=== PATIENT | female | born 1945 | race Caucasian/White ===

== ENCOUNTER 2021-12-11 14:19 | Outpatient (REF) | payer MEDICARE, SELFPAY ==
--- NOTE | ~2021-12-11 | XR_ITS ---
EXAMINATION: XR CHEST CLINICAL INFORMATION: Cough and shortness of breath with question of pneumonia COMPARISON: None TECHNIQUE: 2 views of the chest were obtained. FINDINGS: A left chest wall dual-lead pacemaker is present. Otherwise, no significant abnormality is noted involving the heart, lungs, mediastinum, bony thorax or soft tissues. No infiltrates, pleural effusions or lung masses are seen. XR/XR chest 2V IMPRESSION: No acute intrathoracic disease. No evidence of pneumonia.
== END 2021-12-11 14:20 | disposition home or self-care (01) ==
LOC: HO.HMGCX 14:19
PROVIDERS: PCP Internal Medicine; Visit Provider Internal Medicine
DX: R06.00 Dyspnea, unspecified (principal)
CPT/HCPCS: 71046

== ENCOUNTER → 2022-02-08 10:52 | Outpatient (REF) | payer MEDICARE, SELFPAY | LOC: HO.CARD 10:52 | PROVIDERS: Visit Provider Internal Medicine | DX: R01.1 Cardiac murmur, unspecified (principal); R06.02 Shortness of breath | CPT/HCPCS: 93306 ==

== ENCOUNTER 2022-04-15 07:14 | Outpatient (REF) | payer MEDICARE, SELFPAY ==
[2022-04-15 08:05] LABS: Anion Gap 14 (12-20); Blood Urea Nitrogen 16 mg/dL (9-16); Calcium 10.9 mg/dL (8.4-10.2); Carbon Dioxide 30 mmol/L (22-29); Chloride 103 mmol/L (96-108); Estimated Glomerular Filt Rate 36; Glucose Random 164 mg/dL (60-115); Potassium 4.7 mmol/L (3.3-5.1); Sodium 142 mmol/L (135-145)
== END 2022-04-15 07:15 | disposition home or self-care (01) ==
LOC: HO.LAB 07:14
PROVIDERS: PCP Internal Medicine; Visit Provider Internal Medicine
DX: R53.83 Other fatigue (principal)
CPT/HCPCS: 36415; 80048

== ENCOUNTER 2022-12-20 11:00 | Outpatient (AMB) | payer MEDICARE, SELFPAY ==
--- NOTE | 2022-12-20 11:02 | MHC.PC.OV ---
Vital Signs 12/20/22 11:03 Height 5 ft 4 in Weight 135 lb 8 oz BMI 23.3 BP 160/64 H Blood Pressure Location Lt brachial Position Sitting Respiration 12 Pulse 78 Pulse Source Pulse Oximeter Temp 97.9 F Temp Source Temporal Artery Scan Pulse Oximetry (%) 98 Oxygen Delivery Method Room Air Intake Visit Reasons: New patient-requesting physical Waist Pleater Required: No Accompanied by: Self / Same As Patient Allergies acetaminophen [From Percocet] Allergy (Intermediate, Verified 12/20/22 11:44) Itching oxycodone [From Percocet] Allergy (Intermediate, Verified 12/20/22 11:44) Itching moltrin Allergy (Severe, Uncoded 12/20/22 11:44) Swelling Medication List - Last Reconciled 12/20/22 by Jaylen Taylor CNP albuterol sulfate 90 mcg/actuation 2 puffs inhalation QID PRN amlodipine 10 mg PO DAILY atorvastatin 80 mg PO BEDTIME bupropion HCl 150 mg PO BID cilostazol 100 mg PO clopidogrel 75 mg PO DAILY ferrous sulfate 325 mg PO QAM gabapentin 400 mg PO TID levothyroxine 137 mcg PO DAILY lisinopril 10 mg PO DAILY metformin 500 mg PO BID omeprazole 20 mg PO DAILY pramipexole 0.25 mg PO DAILY sertraline 100 mg PO BID Tobacco use date assessed: 12/20/22 Fall risk assessment: 2 + Falls in past year Last assessed Fall Risk: 12/20/22 Dental Screening Dental Screen Date: 12/20/22 Did you have a dental visit in the last 12 months?: No Did you have a dental problem in the last 6 months where you did not have access to dental care?: No Was dental information given to patient?: Yes HPI HPI Comments History of Present Illness Details 77-year-old female presents to [facility]. She notes she was last evaluated by her former PCP, [facility] on 10/08/2022 and her last blood work was in 04/2022. She states has has not had an A1C done in a while. She has past medical history significant for type 2 diabetes, hypertension, hyperlipidemia, hypothyroidism, CKD stage 3, COPD, GERD, OA, chronic back pain s/p multiple lumbar disectomies, and RLS. 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 She reports daily diarrhea since mid January 2022. She reports as many as 15 diarrheal episodes per day sometimes. 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 She reports an abrasion to her left forearm which she sustained yesterday. She notes she jammed the forearm on a metal lock on a closet in her home. She does not recall when she had her last tetanus vaccine. She states she was treated for hypertension at [facility] on 12/07/2022. She was told to hold lisinopril. She has been taking amlodipine as prescribed. She notes she smokes 10 cigarettes a day and she has been smoking for the past 70 years. She states she is on bupropion for smoking cessation but stopped taking the medication. She was treated at [facility] for hypertension and ID on 05/01/2022. She was followed by Dr. Nicholas, [facility] cardiology. [facility] Medical History (Updated 12/20/22 @ 12:52 by Jaylen Taylor CNP) Anxiety and depression Cataracts, bilateral Chronic back pain CKD (chronic kidney disease) stage 3, GFR 30-59 ml/min COPD (chronic obstructive pulmonary disease) Deafness in right ear GERD (gastroesophageal reflux disease) Hyperlipidemia Hypertension Hypothyroidism No pertinent family history Osteoarthritis Restless leg syndrome Stroke Type 2 diabetes mellitus Surgical History (Updated 12/20/22 @ 11:39 by Maryuri Tillman MA) H/O endarterectomy H/O thyroidectomy H/O: hysterectomy History of appendectomy History of back surgery History of tonsillectomy S/P cardiac pacemaker procedure Social History Housing: House Patient Tobacco Use Status: Current everyday Tobacco user Tobacco use type: Cigarette Cigarettes Per Day: 10 Years Smoked: 70 e-Cigarette/Vaping Use: Never Used service: No Current occupational status: retired Cognitive needs: No Hearing needs: Yes Vision needs: Yes Questionnaire PHQ-9 Over the last 2 weeks, how often have you been bothered by any of the following problems? 1. Little interest or pleasure in doing things: nearly every day 2. Feeling down, depressed, or hopeless: several days 3. Trouble falling or staying asleep, or sleeping too much: nearly every day 4. Feeling tired or having little energy: nearly every day 5. Poor appetite or overeating: not at all 6. Feeling bad about yourself - or that you are a failure or have let yourself or your family down: several days 7. Trouble concentrating on things, such as reading the newspaper or watching television: not at all 8. Moving or speaking so slowly that other people could have noticed. Or the opposite - being so fidgety or restless that you have been moving around a lot more than usual: not at all 9. Thoughts that you would be better off or of hurting yourself in some way: several days Total score: 12 Depression Screening Interpretation: Positive Depression Screening Follow-up: Existing condition and In treatment Source: Developed by Drs. Bonifacio Bethea, Danni Villa, Rico Wilcox and colleagues, with an educational saranya from [employer]. Thrive Questionnaire Date Thrive assessed: 12/20/22 I am a: Patient What is your living situation today?: I have a steady place to live Within the past 12 months, did the food you bought not last and you didn't have the money to get more?: Never true Within the past 12 months, did you worry whether your food would run out before you got money to buy more?: Never true Do you have trouble paying for medicines?: No Do you have trouble getting transportation to medical appointments?: No Do you have trouble paying your heating and electricity bill?: No Do you have trouble taking care of your child, family member or friend?: No Do you have trouble with day-to-day activities such as bathing, preparing meals, shopping, managing finances, etc.?: No Are you currently unemployed and looking for a job?: No Are you interested in more education?: No Please select the resources that you would like help with: None Currently or been in a relationship where the following occur: no concerns reported AUDIT C Alcohol Use Questionnaire (AUDIT-C) 1. How often do you have a drink containing alcohol?: Never 3. How often do you have six or more drinks on one occasion?: Never Total Score: 0 MARCELA-7 AMB Questionnaire MARCELA-7 Date MARCELA - 7 assessed: 12/20/22 Feeling nervous, anxious, or on edge: 1 = Several days Not being able to stop or control worryin = Several days Worrying too much about different things: 1 = Several days Trouble relaxin = Nearly every day Being so restless that it is hard to sit still: 1 = Several days Becoming easily annoyed or irritable: 1 = Several days Feeling afraid as if something awful might happen: 0 = Not at all Total MARCELA-7 score (0-4 normal; 5-9 mild; 10-14 moderate; 15-21 severe): 8 Source: Developed by Drs. Bonifacio Bethea, Danni Villa, Rico Wilcox and colleagues, with an educational saranya from [employer]. Review of Systems Const Details: Const Denies chills, Denies fatigue, Denies fever(s), Denies headache(s) and Denies weakness ENT Denies dizziness, Denies headache(s), reports right hearing loss Card Denies chest pain, Denies lightheadedness, Denies dyspnea and Denies other (Palpitations) Resp Denies cough, Denies dyspnea, Denies wheezing and Denies other ( shortness of breath) GI Reports chronic diarrhea, Denies abdominal pain, Denies melena, Denies hematochezia, Denies dyspepsia and Denies nausea Denies hematuria and Denies dysuria Musc Denies abnormal gait, Denies myalgias, Denies arthralgias, Denies numbness and Denies tingling Skin/Breast Reports abrasion to left arm, Denies rash, Denies unusual bruising Neuro Denies abnormal gait, Denies dizziness, Denies headache(s), Denies memory loss, Denies numbness, Denies Sensory deficit (Neuro), Denies tingling and Denies weakness Psych Reports anxiety, Reports depression, Denies memory loss Endo Denies cold intolerance, Denies fatigue, Denies heat intolerance, Denies polydipsia and Denies polyuria Aller/Immun Denies wheezing Physical exam (Primary Care) Vital Signs: Last Vital Signs Temp 97.9 F 12/20/22 11:03 Pulse 78 12/20/22 11:03 Resp 12 12/20/22 11:03 BP 160/64 H 12/20/22 11:03 Pulse Ox 98 12/20/22 11:03 Oxygen Delivery Method Room Air 12/20/22 11:03 BMI result Body Mass Index 23.3 Tobacco/Smoking Status: Tobacco use Status Tobacco use date assessed 12/20/22 12/20/22 11:22 Patient Tobacco Use Status Current everyday Tobacco 12/20/22 11:22 Tobacco use type Cigarette 12/20/22 11:22 e-Cigarette/Vaping Use Never Used 12/20/22 11:22 PHQ-9: PHQ-9 Score PHQ-9: Total score 12 12/20/22 12:45 Depression Screening Interpretation: Positive Depression Screening Follow-up: Existing condition and In treatment Thrive Assessment: Date of Thrive Assessment Date Thrive assessed 12/20/22 12/20/22 11:43 Currently or been in a relationship where the following occur: no concerns reported Const Other: General: no acute distress and well developed Nutritional Appearance: well nourished Orientation/consciousness: patient oriented x3 HENMT Head: Yes normocephalic and Yes atraumatic Eyes General: appearance normal, both eyes and all related structures Pupils: Equal, round and reactive pupils present EOM: EOMs intact bilaterally Resp Effort & Inspection: normal respiratory effort Auscultation: clear to auscultation bilaterally Cardio Rate: regular rate Rhythm: regular rhythm Heart sounds: S1 normal heart sound present, S2 normal heart sound present, no gallops, murmurs present and no rubs GI Palpation (GI): No Abdominal aortic bruit present, Soft to palpation, nontender, No hepatosplenomegaly present and No Rebound tenderness present Auscultation: normal bowel sounds General: Yes no CVA tenderness Back/Spine/Pelvis Back: no CVA tenderness Cervical Spine: cervical ROM normal and No Cervical spine tenderness Thoracic/Lumbar Spine: thoraco-lumbar ROM normal, No pain with thoraco-lumbar ROM, No thoracic spinal tenderness and No lumbar spinal tenderness Extrem General: Yes normal to inspection, No edema and No calf tenderness Skin General: warm and dry. Normal skin color. Normal skin turgor Lesions: no lesions Rashes: no rashes Trauma: no lacerations or abrasions Wounds: Approximately 2.5 cm x 2 cm laceration to the lateral left forearm proximal to the antecubital fossa, minimal bleeding noted, no overt signs of infection noted Nails: normal Neuro General: patient oriented x3, gait normal and no focal neuro deficit Cranial nerves: Yes Equal, round and reactive pupils present Cognition (Neuro): normal cognition Gait exam (Neuro): Normal gait present Sensory Exam: No Sensory deficit (Neuro) Psych Appearance: grossly normal Affect: normal affect Attitude: cooperative Thought process: Normal thought process present Results AMB Hemoglobin A1c AMB Hemoglobin A1c 6.0 % Last Edit by Suresh Dickerson RN on 12/20/22 12:48 Immunizations Boostrix Tdap Performing Provider: Jaylen Taylor CNP Administered by: Suresh Dickerson RN on 12/20/22 12:30 Dose Route Admin Location Lot Number Expiration Date NDC 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 Take as prescribed ADA diet and routine exercise encouraged Follow-up in 1 month for labs review, hypertension, and complete physical exam Return sooner with worsening or new symptoms Verbalized understanding and agreed with treatment plan. (2) Hypertension: Code(s): I10 - Essential (primary) hypertension Plan: She states she was treated for hypertension at [facility] on 12/07/2022. She was told to hold lisinopril. She has been taking amlodipine as prescribed. A blood pressure today is 160/64, above goal of less than 130/80 Advised to resume taking lisinopril as prescribed Continue to take amlodipine as prescribed Low-sodium diet encouraged Advised to monitor home blood pressure, record readings, reports BP consistently above 130/80 and SBP less than [address] Nicholas, [facility] cardiology the the history of hypertension and pacemaker Follow-up in 1 month or return sooner with concerns or symptoms Verbalized understanding and agreed with treatment plan. (3) Hypothyroidism: Code(s): E03.9 - Hypothyroidism, unspecified Plan: With currently on levothyroxine 137 mcg daily Take as prescribed Will check TSH/T4 level and make changes to her care plan if warranted Verbalized understanding and agreed with treatment plan. (4) Hyperlipidemia: Code(s): E78.5 - Hyperlipidemia, unspecified Plan: Currently on atorvastatin 80 mg daily. Advised to continue to take as prescribed Will check lipid levels and make changes to her care plan if warranted Verbalized understanding and agreed with treatment plan. 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 (6) Anxiety and depression: Code(s): F41.9 - Anxiety disorder, unspecified; F32.A - Depression, unspecified Plan: MARCELA-7 and PHQ-9 scores revealed mild anxiety and moderate depression respectively Continue to take sertraline as prescribed Declined therapy Follow-up with worsening or new symptoms Verbalized understanding and agreed with treatment plan. (7) Skin tear of left upper arm without complication: Code(s): S41.112A - Laceration without foreign body of left upper arm, initial encounter Plan: Reports an abrasion to her left forearm which she sustained yesterday. She notes she jammed the forearm on a metal lock on a closet in her home. She does not recall when she had her last tetanus vaccine. Approximately 2.5 cm x 2 cm laceration to the lateral left forearm proximal to the antecubital fossa, minimal bleeding noted, no overt signs of infection noted Wound cleanse with normal saline, patted dry, and covered with Band-Aid Instructed on safety, wound care, and signs and symptoms of infection to monitor and follow-up Tetanus injection administered by the nurse Verbalized understanding and agreed with treatment plan. (8) Smoking 1/2 pack a day or less: Code(s): F17.210 - Nicotine dependence, cigarettes, uncomplicated Plan: She notes she smokes 10 cigarettes a day and she has been smoking for the past 70 years. She states she is on bupropion for smoking cessation but stopped taking the medication. Smoking cessation encouraged Advised to resume taking bupropion as prescribed Return with no improvement. Will change treatment regimen Verbalized understanding and agreed with treatment plan. (9) Chronic diarrhea: Code(s): K52.9 - Noninfective gastroenteritis and colitis, unspecified Plan: She reports daily diarrhea since mid January 2022. She reports as many as 15 diarrheal episodes per day sometimes. 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 May be attributed to adverse effect of metformin. Will change metformin to 1000 mg ER daily to possibly lessen or resolve diarrhea symptoms. Take as prescribed Metamucil ordered. Take as prescribed Follow-up in 1 month or return sooner with worsening or new symptoms Verbalized understanding and agreed with treatment plan. (10) Laboratory tests ordered as part of a complete physical exam (CPE): Code(s): Z00.00 - Encounter for general adult medical examination without abnormal findings Plan: Fasting labs ordered as part of a complete physical exam. Advised to fast for at least 10 hours before getting labs drawn. May drink water Verbalized understanding and agreed with treatment plan. Orders: Orders Comprehensive [place]. Panel Fast Today Z00.00 - Encounter for general adult medical examination without abnormal findings Lipid Panel Today Z00.00 - Encounter for general adult medical examination without abnormal findings TSH reflex Free T4 Today Z00.00 - Encounter for general adult medical examination without abnormal findings Complete Blood Count Auto Diff Today Z00.00 - Encounter for general adult medical examination without abnormal findings UA CC w/rflx Micro + Cult Today Z00.00 - Encounter for general adult medical examination without abnormal findings TDaP Immunization Today S41.112A - Laceration without foreign body of left upper arm, initial encounter, Z23 - Encounter for immunization AMB Hemoglobin A1c Today Z13.9 - Encounter for screening, unspecified Referrals Cardiology Referral I10 - Essential (primary) hypertension Medications: New cilostazol 100 mg PO BID 30 days 60 tabs 3RF metformin ER 1,000 mg PO DAILY 30 days 30 tabs 3RF psyllium husk (Metamucil) mix into at least 8 oz of water or juice before administering. May increase to BID with persistent/worsening symptoms 1 tbsp PO DAILY 660 grams 0RF Coding Level of Care Code New Pt Level 4 (68748) Diagnoses Type 2 diabetes mellitus E11.9 Hypertension I10 Hypothyroidism E03.9 Hyperlipidemia E78.5 Deafness in right ear H91.91 Anxiety and depression F41.9; F32.A Skin tear of left upper arm without complication S41.112A Smoking 1/2 pack a day or less F17.210 Chronic diarrhea K52.9 Laboratory tests ordered as part of a complete physical exam (CPE) Z00.00
[2022-12-20 11:03] VITALS: BP 160/64; PULSE 78; RESP 12; TEMP 36.6; O2SAT 98; BMI 23.3
== END 2022-12-20 12:44 | disposition home or self-care (01) ==
PROVIDERS: PCP Internal Medicine; Visit Provider Nurse Practitioner Family
DX: E11.9 Type 2 diabetes mellitus without complications (principal); I10 Essential (primary) hypertension; E03.9 Hypothyroidism, unspecified; F41.9 Anxiety disorder, unspecified; S41.112A Laceration without foreign body of left upper arm, initial encounter; E78.5 Hyperlipidemia, unspecified; H91.91 Unspecified hearing loss, right ear; F32.A Depression, unspecified; F17.210 Nicotine dependence, cigarettes, uncomplicated; K52.9 Noninfective gastroenteritis and colitis, unspecified; Z23 Encounter for immunization; Z00.00 Encounter for general adult medical examination without abnormal findings
CPT/HCPCS: 83036; 90471; 90715; 99204

== ENCOUNTER 2023-01-08 09:49 | Outpatient (REF) | payer MEDICARE, SELFPAY ==
[2023-01-08 11:17] LABS: MANUAL DIFF FLAG NO
[2023-01-08 11:43] LABS: Basophils Percent Auto 0.5 % (0-2); Eosinophils Absolute Auto 1.7 X10*3/uL (0.0-0.4); Eosinophils Percent Auto 19.1 % (0-4); Hematocrit 33.1 % (37.0-47.0); Hemoglobin 11.2 g/dl (12.0-16.0); Imm Gran Abs Auto 0.03 X10*3/uL (0.00-0.03); Imm Gran Pct Auto 0.3 % (0.0-0.4); Lymphocytes Absolute Auto 1.1 X10*3/uL (1.2-4.9); Lymphocytes Percent Auto 12.8 % (20-40); Mean Corpuscular HGB Conc 33.8 g/dl (31.0-35.0); Mean Corpuscular Hemoglobin 31.7 pg (27.0-33.0); Mean Corpuscular Volume 93.8 fL (80.0-98.0); Mean Platelet Volume 9.8 fL (9.4-12.3); Monocytes Absolute Auto 0.4 X10*3/uL (0.1-1.2); Monocytes Percent Auto 4.3 % (2-11); Neutrophils Absolute Auto 5.5 x10*3/uL (2.0-8.3); Platelet Count 228 X10*3/uL (160-400); Red Blood Count 3.53 X10*6/uL (4.20-5.50); Red Cell Distribution Width 13.1 % (11.0-16.0); White Blood Count 8.8 X10*3/uL (4.8-10.8)
[2023-01-08 12:51] LABS: Alanine Aminotransferase 10 U/L (0-31); Albumin Level 4.1 g/dL (3.5-5.0); Alkaline Phosphatase 104 U/L (39-117); Anion Gap 12 (12-20); Aspartate Amino Transferase 15 U/L (5-31); Bilirubin Total 0.2 mg/dL (0.0-1.0); Blood Urea Nitrogen 26 mg/dL (9-16); Calcium 10.6 mg/dL (8.4-10.2); Carbon Dioxide 19 mmol/L (22-29); Chloride 116 mmol/L (96-108); Cholesterol 124 mg/dL (<200); Estimated Glomerular Filt Rate 31; Glucose Fasting 125 mg/dL (60-99); HDL Cholesterol 36 mg/dL (>40); LDL Cholesterol Calculated 62 mg/dL (<100); Potassium 4.8 mmol/L (3.3-5.1); Sodium 142 mmol/L (135-145); TSH reflex Free T4 1.75 uIU/mL (0.32-4.0); Total Protein 7.2 g/dL (6.5-8.0); Triglycerides 133 mg/dL (<150)
== END 2023-01-08 09:50 | disposition home or self-care (01) ==
LOC: HO.WFDLDS 09:49
PROVIDERS: Visit Provider Nurse Practitioner Family
DX: Z00.00 Encounter for general adult medical examination without abnormal findings (principal)
CPT/HCPCS: 36415; 80053; 80061; 84443; 85025

== ENCOUNTER 2023-01-10 08:27 | Outpatient (REF) | payer MEDICARE, SELFPAY ==
[2023-01-10 12:10] LABS: Appearance Urine Clear; Color Urine Yellow; Glucose Urine UA Negative (Negative); Leukocyte Esterase Urine Negative (Negative); Nitrite Urine Negative (Negative); PH 5.5 (5.0-9.0); Specific Gravity - Urine 1.015 (1.005-1.025); UMIC TRIGGER UACC YES; Urine Blood Negative (Negative); Urine Ketones Negative (Negative); Urine Protein 100 (2+) mg/dL (Neg-Trace)
[2023-01-10 12:14] LABS: Bacteria Urine None Seen (None Seen); Hyaline Casts Urine 0-2 /LPF (0-2); RBC Urine 0-2 /HPF (0-2); Squamous Epithelial Cell Urine 0-2 /HPF (0-2); WBC Urine 0-5 /HPF (0-5)
== END 2023-01-10 08:28 | disposition home or self-care (01) ==
LOC: HO.WFDLDS 08:27
PROVIDERS: Visit Provider Nurse Practitioner Family
DX: Z00.00 Encounter for general adult medical examination without abnormal findings (principal)
CPT/HCPCS: 81001

== ENCOUNTER 2023-01-16 10:30 | Outpatient (AMB) | payer MEDICARE, SELFPAY ==
--- NOTE | 2023-01-16 10:35 | A.OFFPC_ITS ---
Vital Signs 01/16/23 10:36 Height 5 ft 4 in Weight 135 lb 6 oz BMI 23.2 BP 132/68 Blood Pressure Location Lt brachial Position Sitting Respiration 12 Pulse 91 Pulse Source Pulse Oximeter Temp 97.3 F Temp Source Temporal Artery Scan Pulse Oximetry (%) 99 Oxygen Delivery Method Room Air Intake Visit Reasons: 1 mos HTN, CPE, labs review Bell Cleaner Required: No Accompanied by: Self / Same As Patient Allergies acetaminophen [From Percocet] Allergy (Intermediate, Verified 01/17/23 10:45) Itching oxycodone [From Percocet] Allergy (Intermediate, Verified 01/17/23 10:45) Itching moltrin Allergy (Severe, Uncoded 01/17/23 10:45) Swelling Tobacco use date assessed: 12/20/22 Fall risk assessment: 2 + Falls in past year Last assessed Fall Risk: 01/16/23 Dental Screening Dental Screen Date: 01/16/23 Did you have a dental visit in the last 12 months?: No Did you have a dental problem in the last 6 months where you did not have access to dental care?: No Was dental information given to patient?: Patient has dentist HPI HPI Comments History of Present Illness Details 77-year-old female presents for review o f recent blood work, hypertension, and a physical exam. She established care last month. Routine labs were ordered. She was also referred to Cardiology for hypertension and history of pacemaker. She reported chronic diarrhea; metformin was changed to the extended-release form and Metamucil was prescribed to treat diarrhea. She reports continued multiple diarrhea. She admits to taking Metamucil as prescribed without improvement. She states that the pharmacy declined to fill the new script for Metformin ER. No abdominal pain, no nausea, vomiting, or constipation. She notes her last eye exam was last month: normal. She notes she was followed by nephrology at [facility] until last year. She requests a new referral to nephrology. She notes she has not been contacted by [facility] to schedule an appointment. She notes her last bone scan was 15 years ago: osteopenia She states her last mammogram was 3 years ago: benign floating cysts She notes had lung screening over 2 year but never received the result She states her last colonoscopy was 4 yrs ago, [facility], [place]: normal [facility] Medical History (Updated 01/17/23 @ 10:55 by Jaylen Taylor CNP) Restless leg syndrome No pertinent family history Hyperlipidemia Chronic back pain Osteoarthritis GERD (gastroesophageal reflux disease) Anxiety and depression Type 2 diabetes mellitus Hypertension CKD (chronic kidney disease) stage 3, GFR 30-59 ml/min Hypothyroidism Cataracts, bilateral COPD (chronic obstructive pulmonary disease) Deafness in right ear Stroke Surgical History History of tonsillectomy History of appendectomy H/O: hysterectomy History of back surgery H/O thyroidectomy H/O endarterectomy S/P cardiac pacemaker procedure Social History Housing: House Patient Tobacco Use Status: Current everyday Tobacco user Tobacco use type: Cigarette Cigarettes Per Day: 10 Years Smoked: 70 e-Cigarette/Vaping Use: Never Used service: No Current occupational status: retired Cognitive needs: No Hearing needs: No Vision needs: No Questionnaire Thrive Questionnaire Date Thrive assessed: 12/20/22 MARCELA-7 AMB Questionnaire MARCELA-7 Date MARCELA - 7 assessed: 12/20/22 Source: Developed by Drs. Bonifacio Bethea, Danni Villa, Rico Wilcox and colleagues, with an educational saranya from [employer]. Review of Systems Const Details: Denies chills, Denies fatigue, Denies fever(s), Denies headache(s) and Denies weakness HEENT Denies change in vision, Denies dizziness, Denies headache(s), Denies hearing loss, Denies nasal congestion, Denies sinus pain, Denies sinus pressure and Denies sore throat Card Denies chest pain, Denies lightheadedness, Denies dyspnea and Denies other (palpitations) Resp Denies cough, Denies dyspnea and Denies wheezing GI Reports as per HPI Denies hematuria and Denies dysuria Musc Denies abnormal gait, Denies myalgias, Denies arthralgias, Denies numbness and Denies tingling Skin/Breast Denies rash, Denies unusual bruising and Denies wounds Neuro Denies abnormal gait, Denies dizziness, Denies headache(s), Denies memory loss, Denies numbness, Denies Sensory deficit (Neuro), Denies tingling and Denies weakness Psych Denies anxiety, Denies depression and Denies memory loss Endo Denies cold intolerance, Denies fatigue, Denies heat intolerance, Denies polydipsia and Denies polyuria Arnold/Lymph Denies easy bleeding and Denies easy bruising Aller/Immun Denies wheezing Physical exam (Primary Care) Vital Signs: Last Vital Signs Temp 97.3 F 01/16/23 10:36 Pulse 91 01/16/23 10:36 Resp 12 01/16/23 10:36 BP 132/68 01/16/23 10:36 Pulse Ox 99 01/16/23 10:36 Oxygen Delivery Method Room Air 01/16/23 10:36 BMI result Body Mass Index 23.2 Tobacco/Smoking Status: Tobacco use Status Tobacco use date assessed 12/20/22 01/16/23 10:35 Patient Tobacco Use Status Current everyday Tobacco 01/16/23 10:35 Tobacco use type Cigarette 01/16/23 10:35 e-Cigarette/Vaping Use Never Used 01/16/23 10:35 Thrive Assessment: Date of Thrive Assessment Date Thrive assessed 12/20/22 01/16/23 10:35 Const Other: General: no acute distress, well developed, alert and awake Nutritional Appearance: well nourished Orientation/consciousness: patient oriented x3 HENMT Head: Yes normocephalic and Yes atraumatic Ears: hearing grossly normal bilaterally and TM's normal bilaterally General nose exam: Normal external nose present and Normal nares present Mouth: Normal oral and palatal mucosa present and moist mucous membranes Teeth and gingiva: dentition normal Throat: Yes oropharynx normal Eyes Pupils: Equal, round and reactive pupils present and Pupil accommodation reflex normal EOM: EOMs intact bilaterally Neck Neck: Yes normal visual inspection, Yes no lymphadenopathy and Yes trachea midline Thyroid: Thyroid normal Carotids: no bruits Lymphatic: no lymphadenopathy noted Chest Chest palpation & inspection: normal inspection of the chest Resp Effort & Inspection: normal respiratory effort Auscultation: clear to auscultation bilaterally Cardio Rate: regular rate Rhythm: regular rhythm Heart sounds: S1 normal heart sound present, S2 normal heart sound present, no gallops, murmur present and no rubs Bruits: no abdominal aortic bruits and no carotid bruits GI Palpation (GI): No Abdominal aortic bruit present, Soft to palpation, nontender, No hepatosplenomegaly present and No Rebound tenderness present Auscultation: normal bowel sounds General: Yes no CVA tenderness Back/Spine/Pelvis Back: no CVA tenderness Cervical Spine: cervical ROM normal and No Cervical spine tenderness Thoracic/Lumbar Spine: thoraco-lumbar ROM normal, No pain with thoraco-lumbar ROM, No thoracic spinal tenderness and No lumbar spinal tenderness Skin General: warm and dry. Normal skin color. Normal skin turgor Lesions: no lesions Rashes: no rashes Trauma: no lacerations or abrasions Wounds: no wounds Nails: normal Neuro General: patient oriented x3, gait normal and CN's II-XI intact bilaterally Cranial nerves: Yes Equal, round and reactive pupils present Cognition (Neuro): normal cognition Gait exam (Neuro): Normal gait present Motor exam (neuro): 5/5 motor strength present throughout Sensory Exam: No Sensory deficit (Neuro) Deep tendon reflexes (DTR's): Right patellar reflex intensity grade: 2+ and Left patellar reflex intensity grade: 2+ Extrem General: Yes normal to inspection, No edema and No calf tenderness Psych Appearance: grossly normal Affect: normal affect Attitude: cooperative Thought process: Normal thought process present Assessment and Plan Assessment & Plan (1) Normal physical examination, routine: Code(s): Z00.00 - Encounter for general adult medical examination without abnormal findings Plan: No significant physical restrictions or limitations noted She notes that she had a normal colonoscopy 4 years ago at [facility] in [place]. Will request old health records and review results Follow-up in 2 months for hypertension, diabetes, anxiety and depression Return sooner with new or worsening symptoms Verbalized understanding and agreed with treatment plan. (2) Hypertension: Code(s): I10 - Essential (primary) hypertension Qualifiers: Hypertension type: primary hypertension Qualified Code(s): I10 - Essential (primary) hypertension Plan: Blood pressure is 132/68, slightly above goal of less than 130/80 Continue with current treatment regimen Low-sodium diet encouraged Follow-up in 2 months Return sooner with symptoms or concerns Verbalized understanding and agreed with the treatment plan. (3) Hyperlipidemia: Code(s): E78.5 - Hyperlipidemia, unspecified Qualifiers: Hyperlipidemia type: unspecified Qualified Code(s): E78.5 - Hyperlipidemia, unspecified Plan: Recent lab results reviewed with the patient LDL is 62 and within goal of less than 70 HDL is slightly low below 40 Triglycerides and total cholesterol level is normal Continue with current treatment regimen Advised to limit foods high in saturated fat and avoid foods high trans fat Routine exercise encouraged Will continue to monitor Verbalized understanding and agreed with treatment plan. (4) Hypothyroidism: Code(s): E03.9 - Hypothyroidism, unspecified Qualifiers: Hypothyroidism type: unspecified Qualified Code(s): E03.9 - Hypothyroidism, unspecified Plan: Recent TSH level is normal Continue with current treatment regimen Will continue to monitor Verbalized understanding and agreed with treatment plan. (5) Type 2 diabetes mellitus: Code(s): E11.9 - Type 2 diabetes mellitus without complications Qualifiers: Diabetes mellitus complication status: without complication Plan: A1c was 6.0% last month, within goal of less than 7.0% She has been taking metformin 500 mg IR twice daily instead of newly prescribed 1000 mg ER daily because the medication was not filled by the pharmacy. The MA called the pharmacy and was informed that Metformin 500 mg ER, 2 tabs daily, will be covered by the patient's health plan instead of 1000 mg ER daily. Metformin order modified to 500 mg ER, 2 tabs daily. Take as prescribed She notes she had normal eye exam last month ADA diet and routine exercise encouraged Follow-up in 2 months Return sooner with symptoms or concerns Verbalized understanding and agreed with treatment plan. (6) Chronic diarrhea: Code(s): K52.9 - Noninfective gastroenteritis and colitis, unspecified Plan: She reports continued multiple diarrhea. She admits to taking Metamucil as prescribed without improvement. She states that the pharmacy declined to fill the new script for Metformin ER. No abdominal pain, no nausea, vomiting, or constipation. The MA called the pharmacy and was informed that Metformin 500 mg ER, 2 tabs daily, will be covered by the patient's health plan instead of 1000 mg ER daily. Metformin order modified to 500 mg ER, 2 tabs daily. Take as prescribed. May resolve diarrhea GI referral made Return with worsening or new symptoms Verbalized understanding and agreed with treatment plan. (7) CKD (chronic kidney disease) stage 3, GFR 30-59 ml/min: Code(s): N18.30 - Chronic kidney disease, stage 3 unspecified Qualifiers: Chronic kidney disease stage 3 subtype: stage 3b (GFR 30-44) Qualified Code(s): N18.32 - Chronic kidney disease, stage 3b Plan: Recent BUN and creatinine level is slightly elevated, GFR is low, 31 BMP ordered to recheck kidney functions She was followed by [facility] and request a new systems designer Referred to [facility] Follow-up with symptoms or concerns Verbalized understanding and agreed with treatment plan. (8) Breast cancer screening: Code(s): Z12.39 - Encounter for other screening for malignant neoplasm of breast Qualifiers: Breast cancer screening modality: mammogram Qualified Code(s): Z12.31 - Encounter for screening mammogram for malignant neoplasm of breast Plan: She states her last mammogram was 3 years ago: benign floating cysts Mammogram ordered (9) Screening for lung cancer: Code(s): Z12.2 - Encounter for screening for malignant neoplasm of respiratory organs Plan: She notes she smokes 10 cigarettes a day and she has been smoking for the past 70 years Instructed smoking risks and complications such as heart attack and stroke. Smoking cessation encouraged Continue to take Wellbutrin as prescribed Lung cancer screening ordered Verbalized understanding and agreed with the treatment plan. (10) Murmur: Code(s): R01.1 - Cardiac murmur, unspecified Plan: She was referred to Cardiology last month for murmurs, hypertension, and pacemaker She notes she has not been contacted by Cardiology. However, there is documentation that the patient was contacted and message left to call back and schedule an appointment; patient informed and encouraged to call Cardiology to schedule an appointment. She verbalized understanding and agreed with the plan. (11) Osteopenia: Code(s): M85.80 - Other specified disorders of bone density and structure, unspecified site Qualifiers: Osteopenia location: unspecified Qualified Code(s): M85.80 - Other specified disorders of bone density and structure, unspecified site Plan: She notes her last bone scan was 15 years ago: osteopenia Dexa scan ordered Orders: Orders Microalbumin, Random (w Creat) 01/16/23 E11.9 - Type 2 diabetes mellitus without complications, I10 - Essential (primary) hypertension Basic Metabolic Panel 01/16/23 E11.9 - Type 2 diabetes mellitus without complications, I10 - Essential (primary) hypertension MM screening mammo BI 01/16/23 Z12.31 - Encounter for screening mammogram for malignant neoplasm of breast XR DEXA axial skeleton 01/16/23 M85.80 - Other specified disorders of bone density and structure, unspecified site Referrals Nephrology Referral N18.30 - Chronic kidney disease, stage 3 unspecified Gastroenterology Referral K52.9 - Noninfective gastroenteritis and colitis, unspecified Coding Level of Care Code Est Pt Level 3 (70631) Diagnoses Normal physical examination, routine Z00.00 Primary hypertension I10 Hypertension type: primary hypertension Hyperlipidemia, unspecified hyperlipidemia type E78.5 Hyperlipidemia type: unspecified Hypothyroidism, unspecified type E03.9 Hypothyroidism type: unspecified Type 2 diabetes mellitus E11.9 Diabetes mellitus complication status: without complication Chronic diarrhea K52.9 Stage 3b chronic kidney disease N18.32 Chronic kidney disease stage 3 subtype: stage 3b (GFR 30-44) Encounter for screening mammogram for malignant neoplasm of breast Z12.31 Breast cancer screening modality: mammogram Screening for lung cancer Z12.2 Murmur R01.1 Osteopenia, unspecified location M85.80 Osteopenia location: unspecified
[2023-01-16 10:36] VITALS: BP 132/68; PULSE 91; RESP 12; TEMP 36.3; O2SAT 99; BMI 23.2
== END 2023-01-16 11:22 | disposition home or self-care (01) ==
PROVIDERS: PCP Nurse Practitioner Family; Visit Provider Nurse Practitioner Family
DX: Z00.00 Encounter for general adult medical examination without abnormal findings (principal); I12.9 Hypertensive chronic kidney disease with stage 1 through stage 4 chronic kidney disease, or unspecified chronic kidney disease; E11.22 Type 2 diabetes mellitus with diabetic chronic kidney disease; N18.32 Chronic kidney disease, stage 3b; E03.9 Hypothyroidism, unspecified; E78.5 Hyperlipidemia, unspecified; K52.9 Noninfective gastroenteritis and colitis, unspecified; R01.1 Cardiac murmur, unspecified; M85.80 Other specified disorders of bone density and structure, unspecified site
CPT/HCPCS: 99397

== ENCOUNTER 2023-02-25 12:18 | Outpatient (REF) | payer MEDICARE, SELFPAY ==
--- NOTE | ~2023-02-25 | MM_ITS ---
EXAMINATION: BONE DENSITOMETRY CLINICAL INDICATION: Other specified disorders of bone density and structure, unspecified site. COMPARISON: This is the patient's baseline examination. TECHNIQUE: Using a [employer] DXA System (software version: 13.1) manufactured by [employer], dual-energy x-ray absorptiometry was performed of the lumbar spine and left hip. The images are of good technical quality. Summary results are attached. FINDINGS: AP SPINE L1-L4: BMD 1.086 g/cm2, Z-score 1.2, T-score -0.8, normal. LEFT FEMUR, NECK: BMD 0.763 g/cm2, Z-score 0.2, T-score -2.0, osteopenia. LEFT FEMUR, TOTAL: BMD 0.684 g/cm2, Z-score 0.5, T-score -2.6, osteoporosis. IDENTIFIED RISK FACTORS: History of adult fracture. Renal disease. Recurrent falls. Current smoker. Parental hip fracture. Secondary osteoporosis (early menopause). Hysterectomy. Bilateral oophorectomy. Anticonvulsants. HISTORY OF FRACTURE: Wrist. Other. MEDICATIONS: None listed. MM/XR DEXA axial skeleton IMPRESSION: 1. DIAGNOSIS: Osteoporosis based on the lowest T-score value of -2.6 in the total femur applying World Health Organization criteria. 2. 10-YEAR FRACTURE RISK PREDICTION, FRAX: According to the guidelines, FRAX calculation should only be performed on patients in the osteopenia bone density category.?Therefore, FRAX was not performed on this patient.? 3. Treatment Recommendations: NOF guidelines recommend consideration for treatment in postmenopausal women and men age 50 and older presenting with the following: -A hip or vertebral (clinical or morphometric) fracture. -T-score less than or equal to -2.5 at the femoral neck or spine after appropriate evaluation to exclude secondary causes. -Low bone mass at the hip or spine and a 10-year fracture probability by FRAX of greater than or equal to 3% for hip fracture or greater than or equal to 20% for major osteoporotic fracture based on the [place] adapted WHO algorithm. 4. Other Recommendations: All treatment decisions require clinical judgment and consideration of individual patient factors, including patient preferences, comorbidities, previous drug use, risk factors not captured in the FRAX model (e.g. frailty, falls, vitamin D deficiency, increased bone turnover, interval significant decline in bone density) and possible under or overestimation of fracture risk by FRAX. Additional medical evaluation for secondary cause of low bone mineral density may be appropriate. FUTURE SCAN RECOMMENDATION: People with diagnosed cases of osteoporosis or at high risk for fracture should have regular bone mineral density tests. For patients eligible for Medicare, routine testing is allowed once every 2 years. The testing frequency can be increased to one year for patients who have rapidly progressing disease, those who are receiving or discontinuing medical therapy to restore bone mass, or have additional risk factors.
--- NOTE | ~2023-02-25 | MM_ITS ---
EXAMINATION: MM SCREENING DIGITAL BREAST TOMOSYNTHESIS, BILATERAL CLINICAL INFORMATION: Screening. Asymptomatic. COMPARISON: Mammography: No prior mammograms for comparison. TECHNIQUE: Digital breast tomosynthesis is performed in both the craniocaudal and mediolateral oblique views along with computer-aided detection (CAD). Synthesized 2D images are generated from the tomosynthesis. FINDINGS: There are scattered areas of fibroglandular density (ACR BI-RADS breast composition Category b). There are no significant masses, abnormal calcifications, or other abnormalities. MM/MM tomosynthesis screening BI IMPRESSION: No mammographic evidence of malignancy. If the prior outside films arrive, we will be happy to issue an addendum after comparison is made. ASSESSMENT: BI-RADS BI-RADS 1 - Negative RECOMMENDATION: Routine annual mammography screening. 1 year F/U This examination should not preclude the clinical evaluation of a suspicious palpable abnormality. This patient's information was entered into a reminder system with a target due date for their next mammogram.
== END 2023-02-25 12:19 | disposition home or self-care (01) ==
LOC: HO.MAMMO 12:18
PROVIDERS: PCP Nurse Practitioner Family; Visit Provider Nurse Practitioner Family
DX: Z12.31 Encounter for screening mammogram for malignant neoplasm of breast (principal); Z13.820 Encounter for screening for osteoporosis; M85.80 Other specified disorders of bone density and structure, unspecified site; Z78.0 Asymptomatic menopausal state
CPT/HCPCS: 77063; 77067; 77080

== ENCOUNTER → 2023-02-25 13:00 | Outpatient (BNV) | payer MEDICARE, SELFPAY | PROVIDERS: PCP Nurse Practitioner Family; Visit Provider Radiology Diagnostic Radiology | DX: Z12.31 Encounter for screening mammogram for malignant neoplasm of breast (principal) | CPT/HCPCS: 77063; 77067 ==

== ENCOUNTER 2023-03-20 10:46 | Outpatient (AMB) | payer MEDICARE, SELFPAY ==
[2023-03-20 11:02] VITALS: BP 126/78; PULSE 62; RESP 13; TEMP 36.5; O2SAT 99; BMI 22.5
--- NOTE | 2023-03-20 11:02 | A.OFFPC_ITS ---
Vital Signs 03/20/23 11:02 Height 5 ft 4 in Weight 131 lb BMI 22.5 BP 126/78 Blood Pressure Location Rt brachial Position Sitting Respiration 13 Pulse 62 Pulse Source Pulse Oximeter Temp 97.7 F Temp Source Temporal Artery Scan Pulse Oximetry (%) 99 Oxygen Delivery Method Room Air Oxygen Flow Rate 126 Intake Visit Reasons: 2 mos HTN, DM, anxiety, depression Dairy Clerk Required: No Accompanied by: Self / Same As Patient Allergies acetaminophen [From Percocet] Allergy (Intermediate, Verified 03/20/23 11:14) Itching oxycodone [From Percocet] Allergy (Intermediate, Verified 03/20/23 11:14) Itching moltrin Allergy (Severe, Uncoded 01/17/23 10:45) Swelling Tobacco use date assessed: 12/20/22 Fall risk assessment: No Falls in past year Last assessed Fall Risk: 03/20/23 Dental Screening Dental Screen Date: 03/20/23 Did you have a dental visit in the last 12 months?: No Did you have a dental problem in the last 6 months where you did not have access to dental care?: No Was dental information given to patient?: Yes HPI HPI Comments History of Present Illness Details 77-year-old female presents for hyperten marcella, diabetes, anxiety and depression She admits to taking her medications as prescribed. She notes that she has been taking Metformin 500mg IR twice daily instead of 1000 ER daily; she notes the pharmacy never filled the ER She reports headache since she was diagnosed with covid 3 weeks ago. She has been taking Tylenol and other OTC remedies with some relief She also reports continued diarrhea, 5-6 episodes daily, for over a year now. No abdominal pain or bloody stool. No nausea or vomiting. She notes that her anxiety and depression is related to frequent diarrhea which makes is difficult to leave her home. She was referred to GI and notes she has an appointment tomorrow She notes that she smoked more than half a pack to 1 pack in the past 70 years. She cut down to half a pack last year. She notes she has failed various treatment regimen for smoking cessation. She is not currently interested in treatment for smoking cessation. She requests lung CT for for lung cancer screening She requests a flu vaccine She has a follow-up appointment with Nephrology next month [facility] Medical History Restless leg syndrome No pertinent family history Hyperlipidemia Chronic back pain Osteoarthritis GERD (gastroesophageal reflux disease) Anxiety and depression Type 2 diabetes mellitus Hypertension CKD (chronic kidney disease) stage 3, GFR 30-59 ml/min Hypothyroidism Cataracts, bilateral COPD (chronic obstructive pulmonary disease) Deafness in right ear Stroke Surgical History History of tonsillectomy History of appendectomy H/O: hysterectomy History of back surgery H/O thyroidectomy H/O endarterectomy S/P cardiac pacemaker procedure Social History Housing: House Patient Tobacco Use Status: Current everyday Tobacco user Tobacco use type: Cigarette Cigarettes Per Day: 10 Years Smoked: 70 e-Cigarette/Vaping Use: Never Used service: No Current occupational status: retired Cognitive needs: No Hearing needs: No Vision needs: No Questionnaire PHQ-9 Over the last 2 weeks, how often have you been bothered by any of the following problems? 1. Little interest or pleasure in doing things: more than half the days 2. Feeling down, depressed, or hopeless: more than half the days 3. Trouble falling or staying asleep, or sleeping too much: several days 4. Feeling tired or having little energy: nearly every day 5. Poor appetite or overeating: nearly every day 6. Feeling bad about yourself - or that you are a failure or have let yourself or your family down: several days 7. Trouble concentrating on things, such as reading the newspaper or watching television: nearly every day 8. Moving or speaking so slowly that other people could have noticed. Or the opposite - being so fidgety or restless that you have been moving around a lot more than usual: several days 9. Thoughts that you would be better off or of hurting yourself in some way: several days Total score: 17 Depression Screening Interpretation: Positive Depression Screening Follow-up: Existing condition and In treatment Depression Screening Done: Yes 00415 - PHQ-9 Billing: Yes Source: Developed by Drs. Bonifacio Bethea, Danni Villa, Rico Wilcox and colleagues, with an educational saranya from [employer]. Thrive Questionnaire Date Thrive assessed: 12/20/22 MARCELA-7 AMB Questionnaire MARCELA-7 Date MARCELA - 7 assessed: 03/20/23 Feeling nervous, anxious, or on edge: 1 = Several days Not being able to stop or control worryin = Nearly every day Worrying too much about different things: 1 = Several days Trouble relaxin = Nearly every day Being so restless that it is hard to sit still: 3 = Nearly every day Becoming easily annoyed or irritable: 2 = More than half the days Feeling afraid as if something awful might happen: 1 = Several days Total MARCELA-7 score (0-4 normal; 5-9 mild; 10-14 moderate; 15-21 severe): 14 Source: Developed by Drs. Bonifacio Bethea, Danni Villa, Rico Wilcox and colleagues, with an educational saranya from [employer]. MARCELA-7 Assessment Billing MARCELA-7 Assessment Tool: MARCELA-7 Assessment 59253 Review of Systems Const Details: Const Denies chills, Denies fatigue, Denies fever(s), Reports headache(s) and Denies weakness ENT Denies dizziness and Reports headache(s) Card Denies chest pain, Denies lightheadedness, Denies dyspnea and Denies other (Palpitations) Resp Denies cough, Denies dyspnea, Denies wheezing and Denies other ( shortness of breath) GI Reports as per HPI Denies hematuria and Denies dysuria Musc Denies abnormal gait, Denies myalgias, Denies arthralgias, Denies numbness and Denies tingling Skin/Breast Denies rash, Denies unusual bruising and Denies wounds Neuro Denies abnormal gait, Denies dizziness, Reports headache(s), Denies memory loss, Denies numbness, Denies Sensory deficit (Neuro), Denies tingling and Denies weakness Psych Reports anxiety, Reports depression, Denies memory loss Endo Denies cold intolerance, Denies fatigue, Denies heat intolerance, Denies polydipsia and Denies polyuria Aller/Immun Denies wheezing Physical exam (Primary Care) Vital Signs: Last Vital Signs Temp 97.7 F 03/20/23 11:02 Pulse 62 03/20/23 11:02 Resp 13 03/20/23 11:02 BP 126/78 03/20/23 11:02 Pulse Ox 99 03/20/23 11:02 Oxygen Delivery Method Room Air 03/20/23 11:02 Oxygen Flow Rate 126 03/20/23 11:02 BMI result Body Mass Index 22.5 Tobacco/Smoking Status: Tobacco use Status Tobacco use date assessed 12/20/22 03/20/23 11:02 Patient Tobacco Use Status Current everyday Tobacco 03/20/23 11:02 Tobacco use type Cigarette 03/20/23 11:02 e-Cigarette/Vaping Use Never Used 03/20/23 11:02 PHQ-9: PHQ-9 Score PHQ-9: Total score 17 03/20/23 12:19 Depression Screening Interpretation: Positive Depression Screening Follow-up: Existing condition and In treatment Thrive Assessment: Date of Thrive Assessment Date Thrive assessed 12/20/22 03/20/23 11:02 Const Other: General: no acute distress and well developed Nutritional Appearance: well nourished Orientation/consciousness: patient oriented x3 HENMT Head: Yes normocephalic and Yes atraumatic Eyes General: appearance normal, both eyes and all related structures Pupils: Equal, round and reactive pupils present EOM: EOMs intact bilaterally Resp Effort & Inspection: normal respiratory effort Auscultation: clear to auscultation bilaterally Cardio Rate: regular rate Rhythm: regular rhythm Heart sounds: S1 normal heart sound present, S2 normal heart sound present, no gallops, no murmurs and no rubs GI Palpation (GI): No Abdominal aortic bruit present, Soft to palpation, nontender, No hepatosplenomegaly present and No Rebound tenderness present Auscultation: normal bowel sounds General: Yes no CVA tenderness Back/Spine/Pelvis Back: no CVA tenderness Cervical Spine: cervical ROM normal and No Cervical spine tenderness Thoracic/Lumbar Spine: thoraco-lumbar ROM normal, No pain with thoraco-lumbar ROM, No thoracic spinal tenderness and No lumbar spinal tenderness Extrem General: Yes normal to inspection, No edema and No calf tenderness Skin General: warm and dry. Normal skin color. Normal skin turgor Neuro General: patient oriented x3, gait normal and no focal neuro deficit Cranial nerves: Yes Equal, round and reactive pupils present Cognition (Neuro): normal cognition Gait exam (Neuro): Normal gait present Sensory Exam: No Sensory deficit (Neuro) Psych Appearance: grossly normal Affect: normal affect Attitude: cooperative Thought process: Normal thought process present Office Procedures Flu Questionnaire Does the patient have a severe egg allergy?: No Does the patient have severe life threatening allergies?: No Does the patient have a fever or illness today?: No Has the patient ever had Guillain-[place] Syndrome?: No Has the patient ever had any past reaction to a flu shot?: No Results AMB Hemoglobin A1c AMB Hemoglobin A1c 5.8 % Last Edit by Kady Stephenson CMA on 03/20/23 11:39 Immunizations flu vacc [id number] 6mos up(PF) 60 mcg(15 mcgx4)/0.5 mL IM syringe Performing Provider: Jaylen Taylor CNP Performing Location: [facility] Administered by: Susan Bell RN on 03/20/23 12:19 Dose Route Admin Location Dispensed Lot Number Expiration Date NDC Lace Winder 0.5 mL IM Left Deltoid 0.5 mL [id number] 11/02/23 [id number] Directa Plus VIS Given Date VIS Provided VIS Publication Date 03/20/23 Single Vaccine 20 Eligibility Eligibility Date Funding Source Not VFC Eligible 03/20/23 Private Results Reviewed Results Reviewed: Laboratory Last Values Hgb A1c (Clinic) 5.8 % (4.0-6.0) 03/20/23 11:31 Assessment and Plan Assessment & Plan (1) Type 2 diabetes mellitus: Code(s): E11.9 - Type 2 diabetes mellitus without complications Qualifiers: Diabetes mellitus complication status: without complication Plan: A1c today is 5.8%, within goal of less than 7.0%. Previous A1c was 6.0% The MA called the patient's pharmacy inquired above her metformin order and was told they have been filling metformin IR because the ER dose his only covered when 500mg tab as prescribed. Metformin 500 mg (2 tabs) daily ordered. Take as prescribed ADA diet and routine exercise encouraged Recent LDL in January is 62, within goal of less than 70 She notes that her last eye exam was in the summer Encouraged to get urine microalbumin/creatinine ratio done Follow up in 3 months or return sooner with worsening or new symptoms Verbalized understanding and agreed with the treatment plan Flu vaccine administered by the nurse (2) Hypertension: Code(s): I10 - Essential (primary) hypertension Qualifiers: Hypertension type: primary hypertension Qualified Code(s): I10 - Essential (primary) hypertension Plan: Blood pressure is 126/78, within goal of less than 130/80 Continue current treatment regimen Low-sodium diet encouraged Follow-up in 3 months or return sooner with symptoms or concerns Verbalized understanding and agreed with treatment plan (3) Diarrhea: Code(s): R19.7 - Diarrhea, unspecified Plan: Reports continued diarrhea, 5-6 episodes daily, for over a year now. She notes that her anxiety and depression is related to frequent diarrhea which makes is difficult to leave her home Metformin IR may be contributing to her symptoms Metformin ER changed to IR. New order for 500 mg (2 tabs) daily sent to the pharmacy Metamucil as prescribed Follow up with GI as planned Return with worsening or new symptoms Verbalized understanding and agreed with the plan (4) Headache: Code(s): R51.9 - Headache, unspecified Plan: Reports headache since she was diagnosed with covid 3 weeks ago. She has been taking Tylenol and other OTC remedies with some relief Normal PE, no neuro deficit Continue with current treatment regimen Follow-up with worsening or new symptoms. May take ibuprofen as needed Verbalized understanding and agreed with the plan. (5) Anxiety and depression: Code(s): F41.9 - Anxiety disorder, unspecified; F32.A - Depression, unspecified Plan: PHQ-9 and MARCELA-7 scores revealed moderately severe depression and moderate anxiety respectively She attributes her symptoms to frequent diarrhea Continue to take sertraline and bupropion as prescribed Adjustment made with metformin which may improve her symptoms Routine exercise encouraged Follow-up with Gastroenterology as planned Return in 3 months or sooner with worsening or new symptoms Verbalized understanding and agreed with treatment plan. (6) Smoking greater than 30 pack years: Code(s): F17.210 - Nicotine dependence, cigarettes, uncomplicated Plan: She smoked more than half a pack to 1 pack in the past 70 years. She cut down to half a pack last year Declines treatment or referral for smoking cessation Instructed on the health risks and complications of cigarette smoking Smoking cessation encouraged LDCT ordered for lung screening (7) Screening for lung cancer: Code(s): Z12.2 - Encounter for screening for malignant neoplasm of respiratory organs Plan: As above Orders: Orders AMB Hemoglobin A1c Today Z13.9 - Encounter for screening, unspecified Influenza [id number] Immunization Today Z23 - Encounter for immunization Coding Level of Care Code Est Pt Level 4 (92223) Diagnoses Type 2 diabetes mellitus E11.9 Diabetes mellitus complication status: without complication Primary hypertension I10 Hypertension type: primary hypertension Diarrhea R19.7 Headache R51.9 Anxiety and depression F41.9; F32.A Smoking greater than 30 pack years F17.210 Screening for lung cancer Z12.2 Additional Codes MARCELA-7 Assessment Billing - MARCELA-7 Assessment Tool: MARCELA-7 Assessment [id number] ([id number])
== END 2023-03-20 12:18 | disposition home or self-care (01) ==
PROVIDERS: PCP Nurse Practitioner Family; Visit Provider Nurse Practitioner Family
DX: E11.9 Type 2 diabetes mellitus without complications (principal); I10 Essential (primary) hypertension; R19.7 Diarrhea, unspecified; R51.9 Headache, unspecified; F41.9 Anxiety disorder, unspecified; F32.A Depression, unspecified; F17.210 Nicotine dependence, cigarettes, uncomplicated; Z12.2 Encounter for screening for malignant neoplasm of respiratory organs; Z23 Encounter for immunization
CPT/HCPCS: 83036; 90471; 90686; 96127; 99214

== ENCOUNTER 2023-03-21 12:50 | Outpatient (AMB) | payer MEDICARE, SELFPAY ==
--- NOTE | 2023-03-21 12:51 | MHC.OFFVIS ---
Intake Vital Signs 03/21/23 12:52 Height 5 ft 4 in Weight 129 lb 10.109 oz BMI 22.2 BP 140/66 H Blood Pressure Location Rt brachial Position Sitting Pulse 70 Intake Visit Reasons: Noninfective gastroenteritis and colitis Intake Note: Patient presents to in office visit as a new patient for noninfective gastroenteritis and colitis. CC: Patient c/o diarrhea every day since January last year. She states I can't eat anything if I'm going anywhere, it's ruining my life . She reports vomiting a lot a couple of months ago. She also reports occasional acid reflux. Patient was prescribed with lomotil in October but per PT it don't work . Food Or Baggage Handling [place]man Required: No Accompanied by: Self / Same As Patient Allergies acetaminophen [From Percocet] Allergy (Intermediate, Verified 04/16/23 10:05) Itching oxycodone [From Percocet] Allergy (Intermediate, Verified 04/16/23 10:05) Itching ibuprofen [From Motrin] Allergy (Unknown, Verified 04/16/23 10:05) Swelling moltrin Allergy (Severe, Uncoded 01/17/23 10:45) Swelling HPI Noninfective gastroenteritis and colitis HPI Details 77-year-old female here for initial evaluation of diarrhea. She is referred by Jaylen Taylor of [facility] primary care. PMX Diabetes Hypertension High cholesterol Hypothyroid Deaf in right ear Smoker Chronic kidney disease stage III Osteoporosis Hard of hearing right ear Chronic back pain Depression/anxiety * SURGICAL HISTORY Tonsillectomy Appendectomy Hysterectomy Thyroidectomy Carotid endarterectomy Cardiac pacemaker Back surgery * ALLERGIES OXYCODONE MOTRIN ? TYLENOL * Retroficiency LABS: Laboratory Tests 01/08/23 01/08/23 03/20/23 09:50 09:50 11:31 WBC 8.8 Hgb 11.2 L Hct 33.1 L MCV 93.8 MCH 31.7 Plt Count 228 Estimated GFR 31 Hgb A1c (Clinic) 5.8 Total Bilirubin 0.2 AST 15 ALT 10 Alkaline Phosphata se 104 TSH 1.75 TODAY'S VISIT The diarrhea started in mariajose middle of Jan. She has post prandial diarrhea, and she can't eat anything if I go out. She will have small amts of stooling and 6-7 times a day. It also interrupts her sleep and watery diarrhea will comes out if she sneezes or cough. She had a phase of vomiting over the paste summer that lasted a couple fo months but suddenly stopped. HEr last scope was 3 years ago in [facility] and it was negative. No known FHX of diarrheal syndromes or food allergies. About the same time she had a hypoglycemic seizure adn was started on lisinopril. This or the metformin, but she has been on metformin for many years and the lisinopril fits the timing. She will be seeing a renal specialist soon at [address] [place] [address] she has CKD stage 3. Will get US of abd, RAST, Celiac, GI panel, CRP, fecal denise. ROV 4-5 weeks. Pansystolic murmur origin not noted, she has a pacemaker she does not know the name of her cardiac condition. 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 [facility] Medical History Cardiac pacemaker in situ Aortic stenosis Restless leg syndrome No pertinent family history Hyperlipidemia Chronic back pain Osteoarthritis GERD (gastroesophageal reflux disease) Anxiety and depression Type 2 diabetes mellitus Hypertension CKD (chronic kidney disease) stage 3, GFR 30-59 ml/min Hypothyroidism Cataracts, bilateral COPD (chronic obstructive pulmonary disease) Deafness in right ear Stroke Surgical History History of esophagogastroduodenoscopy (EGD) H/O colonoscopy History of tonsillectomy History of appendectomy H/O: hysterectomy History of back surgery H/O thyroidectomy H/O endarterectomy S/P cardiac pacemaker procedure Family History Mother Bladder cancer Brother Bladder cancer Social History Housing: House Patient Tobacco Use Status: Current everyday Tobacco user Tobacco use type: Cigarette Cigarettes Per Day: 10 Years Smoked: 70 e-Cigarette/Vaping Use: Never Used service: No Current occupational status: retired Cognitive needs: No Hearing needs: No Vision needs: No Review of Systems Const Denies fatigue, Denies fever(s), Denies night sweats, Denies poor appetite and Denies weight loss ENT Reports Normal hearing present, Denies dental pain, Denies dysphagia, Denies hearing loss, Denies mouth pain, Denies odynophagia, Denies throat swelling, Denies tongue swelling and Reports other (Dentition adequate) Card Reports no additional complaints Resp Reports no additional complaints GI Denies abdominal pain, Denies melena, Reports bloating, Denies hematochezia, Denies constipation, Reports GI cramping, Denies dysphagia, Denies excessive flatus, Denies early satiety, Denies heartburn, Reports diarrhea, Reports nausea, Denies odynophagia, Reports vomiting and Denies hematemesis Skin/Breast Denies pruritus, Denies lesions, Denies rash and Denies jaundice Neuro Reports Normal hearing present and Denies Abnormal speech present Endo Denies fatigue Aller/Immun Denies throat swelling and Denies tongue swelling Physical Exam Vital Signs: Last Vital Signs Pulse 70 03/21/23 12:52 BP 140/66 H 03/21/23 12:52 BMI result Body Mass Index 22.2 Const General: cooperative, no acute distress, well developed and well groomed Nutritional Appearance: average body habitus and well nourished Orientation/consciousness: oriented to person, oriented to place and oriented to time Limitations: No language barrier HEENT Head: Yes normocephalic and Yes atraumatic Eyes General: appearance normal, both eyes and all related structures Pupils: Equal, round and reactive pupils present Neck Neck: Yes normal visual inspection and Yes no lymphadenopathy Thyroid: Thyroid normal Resp Effort & Inspection: normal respiratory effort and able to speak in complete sentences Auscultation: clear to auscultation bilaterally Cardio Rate: regular rate Rhythm: regular rhythm Heart sounds: Normal, physiologic split S2 sound present Peripheral pulses: radial pulses present and posterior tibial pulses present GI Inspection: No distended and No Abdominal panniculus present Palpation (GI): Soft to palpation, nontender, no guarding, not rigid and No hepatosplenomegaly present Percussion: Yes normal to percussion Auscultation: normal bowel sounds Rectal Exam - Female: deferred Skin General skin exam: no rashes or lesions noted, turgor normal, skin not dry, no jaundice, No spider nevi and no striae Rashes: no rashes Nails: normal Neuro General: oriented to person, oriented to place and oriented to time Cranial nerves: Yes Equal, round and reactive pupils present and Yes Normal hearing present Speech: No Abnormal speech present Extrem General: Yes normal to inspection, No clubbing, No cyanosis and No edema Psych Appearance: grossly normal and well kempt Mental Status: mental status grossly normal Speech and movement: Normal speech and movement present Affect: normal affect Attitude: cooperative Thought process: Normal thought process present and not confabulating Thought content: Normal thought content present Insight: Limited insight present (Psych) Judgement: Limited judgement present (Psych) Assessment & Plan Assessment & Plan (1) Diarrhea: Code(s): R19.7 - Diarrhea, unspecified (2) CKD (chronic kidney disease) stage 3, GFR 30-59 ml/min: Code(s): N18.30 - Chronic kidney disease, stage 3 unspecified Qualifiers: Chronic kidney disease stage 3 subtype: stage 3b (GFR 30-44) Qualified Code(s): N18.32 - Chronic kidney disease, stage 3b (3) Periumbilical abdominal pain: Code(s): R10.33 - Periumbilical pain Plan The diarrhea started in mariajose middle of Jan. She has post prandial diarrhea, and she can't eat anything if I go out. She will have small amts of stooling and 6-7 times a day. It also interrupts her sleep and watery diarrhea will comes out if she sneezes or cough. She had a phase of vomiting over the paste summer that lasted a couple fo months but suddenly stopped. HEr last scope was 3 years ago in [facility] and it was negative. No known FHX of diarrheal syndromes or food allergies. About the same time she had a hypoglycemic seizure adn was started on lisinopril. This or the metformin, but she has been on metformin for many years and the lisinopril fits the timing. She will be seeing a renal specialist soon at [address] [place] [address] she has CKD stage 3. Will get US of abd, RAST, Celiac, GI panel, CRP, fecal denise. ROV 4-5 weeks. Pansystolic murmur origin not noted, she has a pacemaker she does not know the name of her cardiac condition. 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 Orders: Orders Calprotectin, Fecal 03/21/23 R19.7 - Diarrhea, unspecified, R10.33 - Periumbilical pain CDiff Gene PCR 03/21/23 R19.7 - Diarrhea, unspecified, R10.33 - Periumbilical pain Transglutaminase Ab IgG 03/21/23 R19.7 - Diarrhea, unspecified, R10.33 - Periumbilical pain C Reactive Protein 03/21/23 R19.7 - Diarrhea, unspecified, R10.33 - Periumbilical pain GI Panel 03/21/23 R19.7 - Diarrhea, unspecified, R10.33 - Periumbilical pain Gliadin Ab Panel 03/21/23 R19.7 - Diarrhea, unspecified, R10.33 - Periumbilical pain Transglutaminase IgA 03/21/23 R19.7 - Diarrhea, unspecified, R10.33 - Periumbilical pain Rast Allergen 03/21/23 R19.7 - Diarrhea, unspecified, R10.33 - Periumbilical pain US abdomen complete 03/21/23 R19.7 - Diarrhea, unspecified, R10.33 - Periumbilical pain Patient Instructions: Pallavi Mukherjee 1.? Come back to see me in 4-5 weeks 2.? Go to our lab and give blood for bloodwork, be sure to hand the RAST she to the lab when you go down there.? Also be sure to get the stool caps to take home season collect stool samples and ask the lab how quickly you need to get them back to them. 3.? We are going to order an ultrasound just to check her gallbladder my staff will set that up in call you. 4.? Call my office with any problems but do not worry will be able to find a solution once I get more information. Minerva Chatterjee, ANP-C [facility] Gastroenterology [facility], [facility] 1040 telephone Coding Level of Care Code Est Pt Level 4 (67392) Diagnoses Diarrhea R19.7 Stage 3b chronic kidney disease N18.32 Chronic kidney disease stage 3 subtype: stage 3b (GFR 30-44) Periumbilical abdominal pain R10.33
[2023-03-21 12:52] VITALS: BP 140/66; PULSE 70; BMI 22.2
== END 2023-03-21 13:55 | disposition home or self-care (01) ==
PROVIDERS: PCP Nurse Practitioner Family; Visit Provider Nurse Practitioner
DX: R19.7 Diarrhea, unspecified (principal); N18.32 Chronic kidney disease, stage 3b; R10.33 Periumbilical pain
CPT/HCPCS: 99214

== ENCOUNTER 2023-03-21 12:50 | Outpatient (REF) | payer MEDICARE, SELFPAY ==
[2023-03-21 15:45] LABS: C Reactive Protein 0.97 mg/dL (< or = 0.50)
[2023-03-28 07:52] LABS: Transglutaminase Ab IgG <1.0 U/mL; Transglutaminase IgA <1.0 U/mL
== END 2023-03-21 12:51 | disposition home or self-care (01) ==
LOC: HO.LAB 12:50
PROVIDERS: PCP Nurse Practitioner Family; Visit Provider Nurse Practitioner
DX: R10.33 Periumbilical pain (principal); R19.7 Diarrhea, unspecified; N18.32 Chronic kidney disease, stage 3b; Z91.09 Other allergy status, other than to drugs and biological substances
CPT/HCPCS: 36415; 86003; 86140; 86364; 99212

== ENCOUNTER 2023-03-31 09:28 | Outpatient (REF) | payer MEDICARE, SELFPAY | END 2023-03-31 09:29 | disposition home or self-care (01) | LOC: HO.LNP 09:28 | PROVIDERS: Visit Provider Nurse Practitioner | DX: Z13.89 Encounter for screening for other disorder (principal) ==

== ENCOUNTER 2023-04-04 10:40 | Outpatient (REF) | payer MEDICARE, SELFPAY ==
[2023-04-04 13:00] LABS: CDiff Gene PCR NEGATIVE (Negative)
[2023-04-04 14:10] LABS: Adenovirus F 40/41 Not Detected (Not Detect.); Astrovirus Not Detected (Not Detect.); Campylobacter Not Detected (Not Detect.); Cryptosporidium Not Detected (Not Detect.); Cyclospora cayetanensis Not Detected (Not Detect.); E. coli EAEC Not Detected (Not Detect.); E. coli EPEC Not Detected (Not Detect.); E. coli ETEC Not Detected (Not Detect.); E. coli STEC Not Detected (Not Detect.); Entamoeba histolytica Not Detected (Not Detect.); Giardia lamblia Not Detected (Not Detect.); Norovirus GI/GII Not Detected (Not Detect.); Plesiomonas shigelloides Not Detected (Not Detect.); Rotavirus A Not Detected (Not Detect.); Salmonella Not Detected (Not Detect.); Sapovirus Not Detected (Not Detect.); Shigella sp./EIEC Not Detected (Not Detect.); Vibrio Not Detected (Not Detect.); Vibrio Cholerae Not Detected (Not Detect.); Yersinia enterocolitica Not Detected (Not Detect.)
[2023-04-09 23:24] LABS: Calprotectin, Fecal 75 mcg/g
== END 2023-04-04 10:41 | disposition home or self-care (01) ==
LOC: HO.LNP 10:40
PROVIDERS: Visit Provider Nurse Practitioner
DX: R10.33 Periumbilical pain (principal); R19.7 Diarrhea, unspecified
CPT/HCPCS: 83993; 86258; 87493; 87507

== ENCOUNTER 2023-04-16 09:57 | Outpatient (AMB) | payer MEDICARE, SELFPAY ==
[2023-04-16 10:00] VITALS: BP 150/58; PULSE 74; BMI 22.3
--- NOTE | 2023-04-16 10:00 | MHC.OFFVIS ---
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: No Accompanied by: Self / Same As Patient Allergies acetaminophen [From Percocet] Allergy (Intermediate, Verified 04/16/23 10:05) Itching oxycodone [From Percocet] Allergy (Intermediate, Verified 04/16/23 10:05) Itching ibuprofen [From Motrin] Allergy (Unknown, Verified 04/16/23 10:05) Swelling moltrin Allergy (Severe, Uncoded 01/17/23 10:45) Swelling Medication List - Last Reviewed 04/16/23 by ALICIA Diaz amlodipine 10 mg PO DAILY atorvastatin 80 mg PO BEDTIME [id number] 160-9-4.8 mcg/actuation (Breztri Aerosphere) 2 inhalations inhalation BID cilostazol 100 mg PO BID 30 days clopidogrel 75 mg PO DAILY ferrous sulfate 325 mg PO QAM gabapentin 400 mg PO TID levothyroxine 137 mcg PO DAILY metformin 500 mg PO BID omeprazole 20 mg PO DAILY pramipexole 0.25 mg PO DAILY psyllium husk (Metamucil) 1 tbsp PO DAILY sertraline 100 mg PO BID HPI HPI Comments History of Present Illness Details Thank you for referring Pallavi in cardiology consultation today for management of her cardiovascular disease. She is a pleasant but slightly anxious 77-year-old woman with prior history of aortic stenosis which appears to be mild to moderate by last echocardiogram done here, appears to have advanced COPD due to smoking, hypertension which is not adequately control, diabetes, chronic kidney disease, cardiac pacemaker put in 2016 for slow heart rate and fatigue has changed to cardiology care here due to change in insurance. Patient has very limited exercise activity related to COPD and gets short of breath. She does not recall ever having any other cardiac issues besides the pacemaker. Denies any arrhythmias, myocardial infarction, coronary artery disease, intervention. Patient was not aware of her aortic stenosis. Patient says that she has high blood pressure and currently on amlodipine therapy but she has not been taking lisinopril therapy as she this year had a syncopal episode after being started on lisinopril therapy is very afraid of taking it. She says a blood pressure at home usually run around 160 systolic. She denies any orthopnea, PND, leg edema. Denies any symptoms of claudication. No prolonged palpitations or irregular heartbeat. [facility] Medical History Cardiac pacemaker in situ Aortic stenosis Restless leg syndrome No pertinent family history Hyperlipidemia Chronic back pain Osteoarthritis GERD (gastroesophageal reflux disease) Anxiety and depression Type 2 diabetes mellitus Hypertension CKD (chronic kidney disease) stage 3, GFR 30-59 ml/min Hypothyroidism Cataracts, bilateral COPD (chronic obstructive pulmonary disease) Deafness in right ear Stroke Surgical History History of esophagogastroduodenoscopy (EGD) H/O colonoscopy History of tonsillectomy History of appendectomy H/O: hysterectomy History of back surgery H/O thyroidectomy H/O endarterectomy S/P cardiac pacemaker procedure Family History Mother Bladder cancer Brother Bladder cancer Social History Housing: House Patient Tobacco Use Status: Current everyday Tobacco user Tobacco use type: Cigarette Cigarettes Per Day: 10 Years Smoked: 70 e-Cigarette/Vaping Use: Never Used service: No Current occupational status: retired Cognitive needs: No Hearing needs: No Vision needs: No Review of Systems Const Reports chills, Reports fatigue, Reports fever(s), Reports frequent falls, Reports weakness, Reports weight gain and Reports weight loss ENT Reports dizziness Card Reports chest pain, Reports leg edema, Reports lightheadedness, Reports palpitations, Reports dyspnea and Reports dyspnea on exertion Resp Reports cough, Reports dyspnea and Reports dyspnea on exertion GI Reports hematochezia Musc Reports abnormal gait, Reports muscle weakness, Reports numbness, Reports radiating pain into limb and Reports tingling Neuro Reports abnormal gait, Reports dizziness, Reports frequent falls, Reports numbness, Reports tingling and Reports weakness Endo Reports fatigue and Reports palpitations Physical Exam Vital Signs: Last Vital Signs Pulse 74 04/16/23 10:00 BP 150/58 H 04/16/23 10:00 BMI result Body Mass Index 22.3 Const General: cooperative, comfortable, alert, awake, in distress mild and respiratory and anxious Nutritional Appearance: thin Orientation/consciousness: patient oriented x3 HEENT Head: Yes normocephalic and Yes atraumatic Neck Neck: Yes trachea midline, Yes supple and Yes no JVD Resp Effort & Inspection: normal respiratory effort Auscultation: crackles (coarse), wheezes and diminished lung sounds Cardio Jugular venous distension: no JVD Rate: regular rate Rhythm: abnormal rhythm with ectopic beats Heart sounds: S1 normal heart sound present, S2 normal heart sound present, no click, no gallops and Murmur heart sound present systolic mid, decrescendo and crescendo GI Auscultation: normal bowel sounds Skin General skin exam: no rashes or lesions noted Neuro General: patient oriented x3 and no focal motor deficits Extrem General: Yes no clubbing, cyanosis or edema Office Procedures EKG Details: Atrially paced rhythm with PACs with LVH with repolarization abnormality [id number], Complete Assessment & Plan Assessment & Plan (1) SOB (shortness of breath) on exertion: Code(s): R06.02 - Shortness of breath Plan: Patient with symptoms exertional shortness of breath which to me appears to be related to underlying severe COPD. Not sure if she requires oxygen therapy, should be evaluated by Pulmonary for the same. However she has multiple risk factors for obstructive coronary artery disease. Would suggest of the vasodilating myocardial perfusion imaging to further assess for it. Also could be due to advancing systolic/diastolic dysfunction related uncontrolled hypertension and or related to aortic stenosis. Will pursue an echocardiogram in near future. Complete smoking cessation was advised. Better treatment from pulmonary perspective should also be considered, she said she did well with nebulizer therapy in the past. (2) Aortic stenosis: Code(s): I35.0 - Nonrheumatic aortic (valve) stenosis Plan: Aortic stenosis seems to be progressing by clinical exam and appears to be at least moderate. I would suggest an echocardiogram as above. We discussed about calcific aortic valve changes. She was not aware of it. However discussed management of it. This requires low-dose aspirin therapy. Aggressive control of diabetes with goal hemoglobin A1c less than 7% and aggressive control blood pressure was discussed. After much discussion she agreed to take low-dose lisinopril therapy, see below. Low-salt diet was discussed. Also continue statin therapy with target goal LDL less than 70 mg/dL. (3) Cardiac pacemaker in situ: Comment: Biotronik dual-chamber pacemaker in place, placed in 2016 Code(s): Z95.0 - Presence of cardiac pacemaker Plan: Biotronik pacemaker in check, could not evaluate today. Will recheck the next visit after testing to evaluate for pacemaker check and then will follow remotely. (4) Hypertension: Code(s): I10 - Essential (primary) hypertension Qualifiers: Hypertension type: primary hypertension Qualified Code(s): I10 - Essential (primary) hypertension Plan: Hypertension which is uncontrolled. Discussed with her importance of good blood pressure control to prevent chronic hypertension related end-organ damage. Advise target goal blood pressure should be less than 140 systolic. Will start on very low-dose lisinopril 2.5 mg daily and take it in the evening time. Advised to monitor blood pressure multiple times a day and maintain a log. Stress mitigation strategies were discussed. Low-salt diet was discussed Follow up in the clinic in 4 weeks time, sooner p.r.n.. Thank you for allowing me to partake in her care Orders: Orders CA echo transthoracic complete Today I35.0 - Nonrheumatic aortic (valve) stenosis Basic Metabolic Panel 1 Week I35.0 - Nonrheumatic aortic (valve) stenosis Lipid Panel 1 Week I25.10 - Atherosclerotic heart disease of [place] coronary artery without angina pectoris, I35.0 - Nonrheumatic aortic (valve) stenosis CA lexiscan stress w jayla Today R06.02 - Shortness of breath Medications: New lisinopril 2.5 mg PO QPM 30 tabs 1RF I35.0 - Nonrheumatic aortic (valve) stenosis Coding Level of Care Code New Pt Level 4 (28910) Diagnoses SOB (shortness of breath) on exertion R06.02 Aortic stenosis I35.0 Cardiac pacemaker in situ Z95.0 Primary hypertension I10 Hypertension type: primary hypertension CPT Codes EKG - CPT: 31519-[id number], Complete ([id number])
== END 2023-04-16 11:11 | disposition home or self-care (01) ==
PROVIDERS: PCP Nurse Practitioner Family; Visit Provider Internal Medicine Cardiovascular Disease
DX: R06.02 Shortness of breath (principal); I35.0 Nonrheumatic aortic (valve) stenosis; Z95.0 Presence of cardiac pacemaker; I10 Essential (primary) hypertension
CPT/HCPCS: 93010; 99214

== ENCOUNTER → 2023-04-16 09:57 | Outpatient (BNVA) | payer MEDICARE, SELFPAY | PROVIDERS: PCP Nurse Practitioner Family; Visit Provider Internal Medicine Cardiovascular Disease | DX: R06.02 Shortness of breath (principal); I35.0 Nonrheumatic aortic (valve) stenosis; I10 Essential (primary) hypertension; Z95.0 Presence of cardiac pacemaker | CPT/HCPCS: 93005; 99212 ==

== ENCOUNTER → 2023-05-21 09:44 | Outpatient (REF) | payer MEDICARE, SELFPAY ==
--- NOTE | 2023-05-21 09:53 | CA_ITS ---
Transthoracic Echocardiogram Patient (Last, First, Middle): Pallavi Mukherjee, Gender: Female Date of : 1945 Age: 77 Procedure Date: 05/21/2023 Procedure Type: Transthoracic Echocardiogram Location: OP Height: 162.56 cm Weight: 58.97 kg BSA: 1.63 m2 Heart Rate: 87 bpm BP: 148 / 62 mmHg Head Strength And Conditioning Coach: SB Referring MD: Joseph Nicholas MD Symptoms: I35.0 - Nonrheumatic aortic (valve) stenosis Study Quality: Adequate ECG Rhythm: Sinus Conclusions: - The left ventricular systolic function is normal. The calculated ejection fraction is 62% by biplane method. - There is severe septal asymmetric hypertrophy. - There is mild to moderate aortic valve stenosis. - There is moderate mitral annular calcification. Findings Left Ventricle Normal left ventricular cavity size. The left ventricular systolic function is normal. The calculated ejection fraction is 62% by biplane method. There is no evidence of regional wall motion abnormalities. There is severe septal asymmetric hypertrophy. LV peak GLS -16.9%. Right Ventricle Normal right ventricular cavity size and systolic function. Atria Both atria are normal in size. Aortic Valve There is moderate calcification of the aortic valve. There is mild to moderate aortic valve stenosis. The peak aortic velocity is 2.70 m/s with a calculated peak gradient of 29 mmHg. The mean gradient is 19 mmHg. The aortic valve area is 1.22 cm2. There is no aortic valve regurgitation. Mitral Valve There is mild anterior mitral leaflet thickening. There is moderate mitral annular calcification. There is no mitral valve regurgitation. No significant mitral stenosis. Pulmonic Valve The pulmonic valve is likely normal. Tricuspid Valve There is trace tricuspid valve regurgitation. There is no evidence of pulmonary hypertension. Great Vessels The aortic annulus and sinuses of valsalva are normal in size. Venous The inferior vena cava is normal in size and collapses greater than 50% with inspiration. Pericardium/Pleural There is no evidence of pericardial effusion. Prior Study Comparison No significant change compared to prior study dated: 02/08/2022. Measurements 2D Linear Measurements IVSd: 1.64 0.6-0.9/0.6-1.0 cm LVIDd: 3.32 3.9-5.3/4.2-5.9 cm LVIDd Index: 2.04 2.4-3.2/2.2-3.1 cm/m2 LVIDs: 2.05 2.0-3.6 cm LVPWd: 1.08 0.7-1.1 cm LA Diam: 3.40 2.7-3.8/3.0-4.0 cm LAIDs Index: 2.09 1.5-2.3 cm/m2 LV Mass: 191.10 67-162/88-224 g LV Mass Index: 117.24 43-95/49-115 g/m2 LVOT Diam: 2.00 3.0+(-)1.3 cm 2D Systolic Function EF 4C: 54.00 >55% EF 2C: 69.40 >55% EF BiP: 62.10 >55% Mitral Valve MV VTI: 0.39 MV Pk Rylan: 1.52 MV Mn Rylan: 1.00 MV Pk Grad: 9.00 MV Mn Grad: 4.00 MV Pk E: 1.25 MV PK A: 1.35 MV Decel Time: 282.00 E/A: 0.90 E'Lateral: 5.00 E'Medial: 4.35 E/E' Med: 28.70 E/E' Lat: 25.00 PHT: 83.00 MVA PHT: 2.65 MVA Continuity: 2.12 Decel [place]: 4.43 Aortic Valve AoV Pk Rylan: 2.70 AoV Mn Rylan: 2.07 AoV VTI: 0.68 AoV Pk Grad: 29.00 Aov Mn Grad: 19.00 ROSE Cont.VTI: 1.22 LVOT LVOT Pk Rylan: 1.12 LVOT Mn Rylan: 0.76 LVOT VTI: 0.27 LVOT Pk Grad: 5.00 LVOT Mn Grad: 3.00 LVOT Diam: 2.00 LVOT Area: 3.14 Diastolic Function MV Pk E: 1.25 MV Pk A: 1.35 E/A: 0.90 E'Medial: 4.35 E/E' Med: 28.70 E' Laterial: 5.00 E/E' Lat: 25.00 Right Ventricle TAPSE (mm): 24.00 TVS' Rylan: 14.40 Tricuspid Valve TR Pk Rylan: 2.49 TR Pk Grad: 25.00 RA Press: 3.00 RVSP: 28.00 Great Vessels Aorta Sinus of Valsalva: 2.90 2.0-3.5 cm Pulmonary Veins Pulm Vein S/D 1.50 Updated in Other Vendor System with Status of Final Marcial Rogel MD electronically signed on 05/23/2023 2:07:07 PM with status of Final
== END ==
LOC: HO.CARD 09:44
PROVIDERS: PCP Nurse Practitioner Family; Visit Provider Internal Medicine Cardiovascular Disease
DX: I35.0 Nonrheumatic aortic (valve) stenosis (principal)
CPT/HCPCS: 93306; 93356

== ENCOUNTER → 2023-05-21 09:53 | Outpatient (BNV) | payer MEDICARE, SELFPAY | PROVIDERS: PCP Nurse Practitioner Family; Visit Provider Internal Medicine | DX: I35.0 Nonrheumatic aortic (valve) stenosis (principal) | CPT/HCPCS: 93306 ==

== ENCOUNTER 2023-05-27 09:44 | Outpatient (REF) | payer MEDICARE, SELFPAY ==
--- NOTE | ~2023-05-27 | US_ITS ---
EXAMINATION: US ABDOMEN COMPLETE CLINICAL INFORMATION: Diarrhea, unspecified. COMPARISON: None available. TECHNIQUE: Real-time imaging of the abdominal viscera. FINDINGS: PANCREAS: Tail obscured. ABDOMINAL AORTA: The proximal, mid, and distal segments are normal in caliber. INFERIOR VENA CAVA: Visualized portions are normal. LIVER: The liver is normal in size. The liver contour is normal. Parenchymal echogenicity is normal. No focal hepatic lesion. There is no intrahepatic biliary duct dilatation seen. GALLBLADDER: The gallbladder is physiologically distended without evidence of stones, sludge, wall thickening or pericholecystic fluid. Cholesterolosis. COMMON BILE DUCT: Normal in caliber measuring 0.3 cm in diameter. RIGHT KIDNEY: No hydronephrosis or renal calculi. The kidney measures 9.1 cm in maximum dimension. Lower pole cyst measures 1.5 x 1.4 x 1.3 cm. Multiple tiny nonshadowing echogenic foci. LEFT KIDNEY: No hydronephrosis or renal calculi. The kidney measures 9.6 cm in maximum dimension. Upper pole cyst measures 5 x 4 x 5 mm. SPLEEN: The spleen measures 8.5 cm in maximum dimension. FREE FLUID: None. US/US abdomen complete IMPRESSION: Bilateral renal cysts. No further routine follow-up is needed. Cholesterolosis of the gallbladder.
== END 2023-05-27 09:45 | disposition home or self-care (01) ==
LOC: HO.US 09:44
PROVIDERS: PCP Nurse Practitioner Family; Visit Provider Nurse Practitioner
DX: R10.33 Periumbilical pain (principal); R19.7 Diarrhea, unspecified
CPT/HCPCS: 76700

== ENCOUNTER 2023-07-03 11:18 | Outpatient (AMB) | payer MEDICARE, SELFPAY ==
--- NOTE | 2023-07-03 11:27 | A.OFFVIS_ITS ---
Intake Vital Signs 07/03/23 11:36 07/03/23 11:52 Height 5 ft 4 in Weight 132 lb BMI 22.7 BP 213/90 H 172/72 H Blood Pressure Location Rt brachial Rt brachial Position Sitting Sitting Pulse 71 Comment Manual BP re-check Intake Visit Reasons: r/s from 06/03/23 Intake Note: Patient returns in follow up of labs and US. CC: Patient states she continues to have diarrhea every day and she is feeling the same. Financial Economist Required: No Accompanied by: Self / Same As Patient Allergies acetaminophen [From Percocet] Allergy (Intermediate, Verified 07/03/23 11:39) Itching oxycodone [From Percocet] Allergy (Intermediate, Verified 07/03/23 11:39) Itching ibuprofen [From Motrin] Allergy (Unknown, Verified 07/03/23 11:39) Swelling moltrin Allergy (Severe, Uncoded 01/17/23 10:45) Swelling HPI r/s from 06/03/23 HPI Details Assessment & Plan (1) Diarrhea: Code(s): R19.7 - Diarrhea, unspecified (2) CKD (chronic kidney disease) stage 3 , GFR 30-59 ml/min: Code(s): N18.30 - Chronic kidney disease, stage 3 unspecified Qualifiers: Chronic kidney disease stage 3 subtype: stage 3b (GFR 30-44) Qualified Code(s): N18.32 - Chronic kidney disease, stage 3b (3) Periumbilical abdominal pain: Code(s): R10.33 - Periumbilical pain Plan The diarrhea started in mariajose middle of Jan. She has post prandial diarrhea, and she can't eat anything if I go out. She will have small amts of stooling and 6-7 times a day. It also interrupts her sleep and watery diarrhea will comes out if she sneezes or cough. She had a phase of vomiting over the paste summer that lasted a couple fo months but suddenly stopped. HEr last scope was 3 years ago in [facility] and it was negative. No known FHX of diarrheal syndromes or food allergies. About the same time she had a hypoglycemic seizure adn was started on lisinopril. This or the metformin, but she has been on metformin for many years and the lisinopril fits the timing. She will be seeing a renal specialist soon at [address] [facility] she has CKD stage 3. Will get US of abd, RAST, Celiac, GI panel, CRP, fecal denise. ROV 4-5 weeks. Pansystolic murmur origin not noted, she has a pacemaker she does not know the name of her cardiac condition. 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 Orders: Orders Calprotectin, Feca l 03/21/23 R19.7 - Diarrhea, unspecified, R10.3 3 - Periumbilical pain CDiff Gene PCR 03/21/23 R19.7 - Diarrhea, unspecified, R10.3 3 - Periumbilical pain Transglutaminase A b IgG 03/21/23 R19.7 - Diarrhea, unspecified, R10.3 3 - Periumbilical pain C Reactive Protein 03/21/23 R19.7 - Diarrhea, unspecified, R10.3 3 - Periumbilical pain GI Panel 03/21/23 R19.7 - Diarrhea, unspecified, R10.3 3 - Periumbilical pain Gliadin Ab Panel 03/21/23 R19.7 - Diarrhea, unspecified, R10.3 3 - Periumbilical pain Transglutaminase I gA 03/21/23 R19.7 - Diarrhea, unspecified, R10.3 3 - Periumbilical pain Rast Allergen 03/21/23 R19.7 - Diarrhea, unspecified, R10.3 3 - Periumbilical pain US abdomen complet e 03/21/23 R19.7 - Diarrhea, unspecified, R10.3 3 - Periumbilical pain Patient Instructions: Pallavi Mukherjee 1.? Come back to see me in 4-5 week s 2.? Go to our lab and give blood fo r bloodwork, be sure to hand the RAST she to the lab when you go down there.? Also be sure to get the stool caps to take home season collect stool samples and ask the lab how quickly you need to get them back to them. 3.? We are going to order an ultras ound just to check her gallbladder my staff will set that up in call you. 4.? Call my office with any problem s but do not worry will be able to find a solution once I get more information. Minerva Chatterjee, RIGO [facility] [place], [facility] [place] telephone LABS: Laboratory Tests 03/21/23 03/21/23 04/04/23 14:25 14:25 07:30 C-Reactive Protein 0.97 H Stool Calprotectin 75 Tiss Transglutamin IgG <1.0 Tiss Transglutamin IgA <1.0 C. difficile Tox B Gene 04/04/23 07:30 C-Reactive Protein Stool Calprotectin Tiss Transglutamin IgG Tiss Transglutamin IgA C. difficile Tox B Gene NEGATIVE 04/04/23-[address]: ORDERED: GI Panel Test Result Flag Refere nce Campylobacter No t Detected Not Det ect. P. shigell oides Not Detected No t Detect. Salmo kyle Not Detect ed Not Detect. Vibrio Not D etected Not Detect . Vibrio Choler ae Not Detected Not D etect. Y. enter ocolit. Not Detected Not Detect. E. coli EAEC Not Dete cted Not Detect. E. coli EPEC Not Detected Not Dete ct. E. coli ETE C Not Detected Not Detect. E. col i STEC Not Detecte d Not Detect. E . coli O157 Not ezequiel licable Not Detect. E. coli c ontaining the O157 antigen are a sub set of Shig a-like toxin-produ cing E. coli (STEC ). Shigella/EIEC Not Detected Not D etect. Cryptosp oridium Not Detected Not Detect. Cyc lospora Not Dete cted Not Detect. E. histolytica Not Detected Not Dete ct. Giardia mike blia Not Detected Not Detect. Adenov irus Not Detecte d Not Detect. A strovirus Not De tected Not Detect. Norovirus N ot Detected Not De tect. Rotavirus A Not Detected N ot Detect. Miguel virus Not Detec darren Not Detect. All results must be correlated with clinical fin dings. RAST PANEL SHOWS SIGNIFICANT ALLERGIES TO EGG WHITE PEANUT, WHEAT, COW'S MILK, AND SESAME. ULTRASOUND OF THE ABDOMEN 05/28/23 FINDINGS: PANCREAS: Tail obscured. ABDOMINAL AORTA: The proximal, mid, and distal segments are normal in caliber. INFERIOR VENA CAVA: Visualized portions are normal. LIVER: The liver is normal in size. The liver contour is normal. Parenchymal echogenicity is normal. No focal hepatic lesion. There is no intrahepatic biliary duct dilatation seen. GALLBLADDER: The gallbladder is physiologically distended without evidence of stones, sludge, wall thickening or pericholecystic fluid. Cholesterolosis. COMMON BILE DUCT: Normal in caliber measuring 0.3 cm in diameter. RIGHT KIDNEY: No hydronephrosis or renal calculi. The kidney measures 9.1 cm in maximum dimension. Lower pole cyst measures 1.5 x 1.4 x 1.3 cm. Multiple tiny nonshadowing echogenic foci. LEFT KIDNEY: No hydronephrosis or renal calculi. The kidney measures 9.6 cm in maximum dimension. Upper pole cyst measures 5 x 4 x 5 mm. SPLEEN: The spleen measures 8.5 cm in maximum dimension. FREE FLUID: None. US/US abdomen complete IMPRESSION: Bilateral renal cysts. No further routine follow-up is needed. Cholesterolosis of the gallbladder. TODAY'S VISIT We review all the tests and it appears that her severe diarrhea comes down to multiple food allergies. I wrote down all of the allergies for her, and tell her that we can not really evaluate how to medicate her until she is eliminated these from her diet and we see if there is any remaining functional disorder contributing to the problem. She gives me a log of her stooling which I scanned to the chart and she literally is having bowel movements 7-10 times a day which clearly is not good for her. The ultrasound does not show any contributing cause for her diarrhea like gallstones although it does appear that she has cholesterolosis so I did warn her that she may develop gallstones going forward. At this time I do not suspect gallbladder dysfunction. She is allergic to egg whites, peanuts, cow's milk, wheat, and sesame seeds. Return office visit in 6 weeks to see how she is doing [facility] Medical History (Updated 07/03/23 @ 16:24 by RIGO Gonzalez) Cardiac pacemaker in situ Aortic stenosis Restless leg syndrome No pertinent family history Hyperlipidemia Chronic back pain Osteoarthritis GERD (gastroesophageal reflux disease) Anxiety and depression Type 2 diabetes mellitus Hypertension CKD (chronic kidney disease) stage 3, GFR 30-59 ml/min Hypothyroidism Cataracts, bilateral COPD (chronic obstructive pulmonary disease) Deafness in right ear Stroke Surgical History History of esophagogastroduodenoscopy (EGD) H/O colonoscopy History of tonsillectomy History of appendectomy H/O: hysterectomy History of back surgery H/O thyroidectomy H/O endarterectomy S/P cardiac pacemaker procedure Family History Mother Bladder cancer Brother Bladder cancer Social History Housing: House Patient Tobacco Use Status: Current everyday Tobacco user Tobacco use type: Cigarette Cigarettes Per Day: 10 Years Smoked: 70 e-Cigarette/Vaping Use: Never Used service: No Current occupational status: retired Cognitive needs: No Hearing needs: No Vision needs: No Review of Systems Const Denies fatigue, Denies fever(s), Denies night sweats, Denies poor appetite and Denies weight loss ENT Reports Normal hearing present, Denies dental pain, Denies dysphagia, Denies hearing loss, Denies mouth pain, Denies odynophagia, Denies throat swelling, Denies tongue swelling and Reports other (Dentition adequate) Card Reports no additional complaints Resp Reports no additional complaints GI Details: Denies abdominal pain, Denies melena, Denies bloating, Denies hematochezia, Denies constipation, Reports GI cramping, Denies dysphagia, Denies excessive flatus, Denies early satiety, Denies heartburn, Reports diarrhea, Denies nausea, Denies odynophagia, Denies vomiting and Denies hematemesis Skin/Breast Denies pruritus, Denies lesions, Denies rash and Denies jaundice Neuro Reports Normal hearing present and Denies Abnormal speech present Endo Denies fatigue Aller/Immun Denies throat swelling and Denies tongue swelling Physical Exam Vital Signs: Last Vital Signs Pulse 71 07/03/23 11:36 BP 172/72 H 07/03/23 11:52 BMI result Body Mass Index 22.7 Const General: cooperative, no acute distress, well developed and well groomed Nutritional Appearance: average body habitus and well nourished Orientation/consciousness: oriented to person, oriented to place and oriented to time Limitations: No language barrier HEENT Head: Yes normocephalic and Yes atraumatic Eyes General: appearance normal, both eyes and all related structures Pupils: Equal, round and reactive pupils present Neck Neck: Yes normal visual inspection and Yes no lymphadenopathy Thyroid: Thyroid normal Resp Effort & Inspection: normal respiratory effort and able to speak in complete sentences Auscultation: clear to auscultation bilaterally Cardio Rate: regular rate Rhythm: regular rhythm Heart sounds: Normal, physiologic split S2 sound present Peripheral pulses: radial pulses present and posterior tibial pulses present GI Inspection: No distended and No Abdominal panniculus present Palpation (GI): Soft to palpation, nontender, no guarding, not rigid and No hepatosplenomegaly present Percussion: Yes normal to percussion Auscultation: normal bowel sounds Rectal Exam - Female: deferred Skin General skin exam: no rashes or lesions noted, turgor normal, skin not dry, no jaundice, No spider nevi and no striae Rashes: no rashes Nails: normal Neuro General: oriented to person, oriented to place and oriented to time Cranial nerves: Yes Equal, round and reactive pupils present and Yes Normal hearing present Speech: No Abnormal speech present Extrem General: Yes normal to inspection, No clubbing, No cyanosis and No edema Psych Appearance: grossly normal and well kempt Mental Status: mental status grossly normal Speech and movement: Normal speech and movement present Affect: normal affect Attitude: cooperative Thought process: Normal thought process present and not confabulating Thought content: Normal thought content present Insight: Fair insight present (Psych) and Limited insight present (Psych) Judgement: Fair judgement present (Psych) and Limited judgement present (Psych) Results Reviewed Results Reviewed: Laboratory Tests 03/21/23 03/21/23 04/04/23 14:25 14:25 07:30 C-Reactive Protein 0.97 H Stool Calprotectin 75 Tiss Transglutamin IgG <1.0 Tiss Transglutamin IgA <1.0 C. difficile Tox B Gene 04/04/23 07:30 C-Reactive Protein Stool Calprotectin Tiss Transglutamin IgG Tiss Transglutamin IgA C. difficile Tox B Gene NEGATIVE 04/04/23-1040 OT : ORDERED: GI Panel Test Result Flag Reference Campylobacter Not Detected Not Detect. P. shigelloides Not Detected Not Detect. Salmonella Not Detected Not Detect. Vibrio Not Detected Not Detect. Vibrio Cholerae Not Detected Not Detect. Y. enterocolit. Not Detected Not Detect. E. coli EAEC Not Detected Not Detect. E. coli EPEC Not Detected Not Detect. E. coli ETEC Not Detected Not Detect. E. coli STEC Not Detected Not Detect. E. coli O157 Not applicable Not Detect. E. coli containing the O157 antigen are a subset of Shiga-like toxin-producing E. coli (STEC). Shigella/EIEC Not Detected Not Detect. Cryptosporidium Not Detected Not Detect. Cyclospora Not Detected Not Detect. E. histolytica Not Detected Not Detect. Giardia lamblia Not Detected Not Detect. Adenovirus Not Detected Not Detect. Astrovirus Not Detected Not Detect. Norovirus Not Detected Not Detect. Rotavirus A Not Detected Not Detect. Sapovirus Not Detected Not Detect. All results must be correlated with clinical findings. RAST PANEL SHOWS SIGNIFICANT ALLERGIES TO EGG WHITE PEANUT, WHEAT, COW'S MILK, AND SESAME. ULTRASOUND OF THE ABDOMEN 05/28/23 FINDINGS: PANCREAS: Tail obscured. ABDOMINAL AORTA: The proximal, mid, and distal segments are normal in caliber. INFERIOR VENA CAVA: Visualized portions are normal. LIVER: The liver is normal in size. The liver contour is normal. Parenchymal echogenicity is normal. No focal hepatic lesion. There is no intrahepatic biliary duct dilatation seen. GALLBLADDER: The gallbladder is physiologically distended without evidence of stones, sludge, wall thickening or pericholecystic fluid. Cholesterolosis. COMMON BILE DUCT: Normal in caliber measuring 0.3 cm in diameter. RIGHT KIDNEY: No hydronephrosis or renal calculi. The kidney measures 9.1 cm in maximum dimension. Lower pole cyst measures 1.5 x 1.4 x 1.3 cm. Multiple tiny nonshadowing echogenic foci. LEFT KIDNEY: No hydronephrosis or renal calculi. The kidney measures 9.6 cm in maximum dimension. Upper pole cyst measures 5 x 4 x 5 mm. SPLEEN: The spleen measures 8.5 cm in maximum dimension. FREE FLUID: None. US/US abdomen complete IMPRESSION: Bilateral renal cysts. No further routine follow-up is needed. Cholesterolosis of the gallbladder. Assessment & Plan Assessment & Plan (1) Diarrhea: Code(s): R19.7 - Diarrhea, unspecified (2) Periumbilical abdominal pain: Code(s): R10.33 - Periumbilical pain (3) GERD (gastroesophageal reflux disease): Code(s): K21.9 - Gastro-esophageal reflux disease without esophagitis (4) Wheat allergy: Comment: This appears to be some other component than gluten Code(s): Z91.018 - Allergy to other foods (5) Peanut allergy: Code(s): Z91.010 - Allergy to peanuts (6) Allergy to egg white: Code(s): Z91.012 - Allergy to eggs (7) Cow's milk allergy: Code(s): Z91.011 - Allergy to milk products (8) Allergy to sesame seed: Code(s): Z91.018 - Allergy to other foods Plan We review all the tests and it appears that her severe diarrhea comes down to multiple food allergies. I wrote down all of the allergies for her, and tell her that we can not really evaluate how to medicate her until she is eliminated these from her diet and we see if there is any remaining functional disorder contributing to the problem. She gives me a log of her stooling which I scanned to the chart and she literally is having bowel movements 7-10 times a day which clearly is not good for her. The ultrasound does not show any contributing cause for her diarrhea like gallstones although it does appear that she has cholesterolosis so I did warn her that she may develop gallstones going forward. At this time I do not suspect gallbladder dysfunction. She is allergic to egg whites, peanuts, cow's milk, wheat, and sesame seeds. Return office visit in 6 weeks to see how she is doing Coding Level of Care Code Est Pt Level 3 (38039) Diagnoses Diarrhea R19.7 Periumbilical abdominal pain R10.33 GERD (gastroesophageal reflux disease) K21.9 Wheat allergy Z91.018 Peanut allergy Z91.010 Allergy to egg white Z91.012 Cow's milk allergy Z91.011 Allergy to sesame seed Z91.018
[2023-07-03 11:36] VITALS: BP 213/90; PULSE 71; BMI 22.7
[2023-07-03 11:52] VITALS: BP 172/72
== END 2023-07-03 11:57 | disposition home or self-care (01) ==
PROVIDERS: PCP Nurse Practitioner Family; Visit Provider Nurse Practitioner
DX: R19.7 Diarrhea, unspecified (principal); R10.33 Periumbilical pain; K21.9 Gastro-esophageal reflux disease without esophagitis; Z91.018 Allergy to other foods; Z91.010 Allergy to peanuts; Z91.012 Allergy to eggs; Z91.011 Allergy to milk products
CPT/HCPCS: 99213

== ENCOUNTER → 2023-07-03 11:18 | Outpatient (BNVA) | payer MEDICARE, SELFPAY | PROVIDERS: PCP Nurse Practitioner Family; Visit Provider Nurse Practitioner | DX: R19.7 Diarrhea, unspecified (principal); R10.33 Periumbilical pain; K21.9 Gastro-esophageal reflux disease without esophagitis; Z91.018 Allergy to other foods; Z91.010 Allergy to peanuts; Z91.012 Allergy to eggs; Z91.011 Allergy to milk products | CPT/HCPCS: 99212 ==

== ENCOUNTER 2023-07-14 12:16 | Outpatient (AMB) | payer MEDICARE, SELFPAY ==
--- NOTE | 2023-07-14 12:25 | A.OFFPC_ITS ---
Vital Signs 07/14/23 12:27 Height 5 ft 4 in Weight 134 lb BMI 23.0 BP 130/66 Blood Pressure Location Rt brachial Position Sitting Respiration 13 Pulse 81 Pulse Source Pulse Oximeter Temp 98 F Temp Source Temporal Artery Scan Pulse Oximetry (%) 97 Oxygen Delivery Method Room Air Intake Visit Reasons: HTN, DM, anxiety, depression Accompanied by: Self / Same As Patient Allergies acetaminophen [From Percocet] Allergy (Intermediate, Verified 07/14/23 12:36) Itching oxycodone [From Percocet] Allergy (Intermediate, Verified 07/14/23 12:36) Itching ibuprofen [From Motrin] Allergy (Unknown, Verified 07/14/23 12:36) Swelling moltrin Allergy (Severe, Uncoded 01/17/23 10:45) Swelling Tobacco use date assessed: 07/14/23 Fall risk assessment: No Falls in past year Last assessed Fall Risk: 07/14/23 Dental Screening Dental Screen Date: 07/14/23 Did you have a dental visit in the last 12 months?: No Did you have a dental problem in the last 6 months where you did not have access to dental care?: No Was dental information given to patient?: Patient declined HPI HPI Comments History of Present Illness Details 77-year-old female presents for hyperten marcella, diabetes, anxiety and depression follow-up She notes that she has been taking her medications as prescribed without adverse reactions She reports persistent soreness to her right shoulder which started a month ago. She has been applying icy hot and taking extra strength Tylenol with no significant improvement. No tingling or numbness. No fall, injury, or trauma She states that her supervisor special services advised she stop taking Metformin at her last visit. She stopped taking Metformin as advised She is followed by endocrinology and nephrology. However, she does not recall name of providers or practices [facility] Medical History (Updated 07/14/23 @ 13:15 by Jaylen Taylor CNP) Cardiac pacemaker in situ Aortic stenosis Restless leg syndrome No pertinent family history Hyperlipidemia Chronic back pain Osteoarthritis GERD (gastroesophageal reflux disease) Anxiety and depression Type 2 diabetes mellitus Hypertension CKD (chronic kidney disease) stage 3, GFR 30-59 ml/min Hypothyroidism Cataracts, bilateral COPD (chronic obstructive pulmonary disease) Deafness in right ear Stroke Surgical History History of esophagogastroduodenoscopy (EGD) H/O colonoscopy History of tonsillectomy History of appendectomy H/O: hysterectomy History of back surgery H/O thyroidectomy H/O endarterectomy S/P cardiac pacemaker procedure Family History Mother Bladder cancer Brother Bladder cancer Social History Housing: House Patient Tobacco Use Status: Current everyday Tobacco user Tobacco use type: Cigarette Cigarette Packs Per Day: 0.4 Cigarettes Per Day: 10 Years Smoked: 70 e-Cigarette/Vaping Use: Never Used service: No Current occupational status: retired Cognitive needs: No Hearing needs: No Vision needs: No Questionnaire PHQ-9 Over the last 2 weeks, how often have you been bothered by any of the following problems? 1. Little interest or pleasure in doing things: nearly every day 2. Feeling down, depressed, or hopeless: several days 3. Trouble falling or staying asleep, or sleeping too much: not at all 4. Feeling tired or having little energy: nearly every day 5. Poor appetite or overeating: not at all 6. Feeling bad about yourself - or that you are a failure or have let yourself or your family down: not at all 7. Trouble concentrating on things, such as reading the newspaper or watching television: not at all 8. Moving or speaking so slowly that other people could have noticed. Or the opposite - being so fidgety or restless that you have been moving around a lot more than usual: not at all 9. Thoughts that you would be better off or of hurting yourself in some way: not at all Total score: 7 Depression Screening Interpretation: Positive Depression Screening Follow-up: Existing condition and In treatment Depression Screening Done: Yes 25673 - PHQ-9 Billing: Yes Source: Developed by Drs. Bonifacio Bethea, Danni Villa, Rico Wilcox and colleagues, with an educational saranya from [employer]. Thrive Questionnaire Date Thrive assessed: 12/20/22 MARCELA-7 AMB Questionnaire MARCELA-7 Date MARCELA - 7 assessed: 07/14/23 Feeling nervous, anxious, or on edge: 2 = More than half the days Not being able to stop or control worryin = Not at all Worrying too much about different things: 0 = Not at all Trouble relaxin = Nearly every day Being so restless that it is hard to sit still: 1 = Several days Becoming easily annoyed or irritable: 0 = Not at all Feeling afraid as if something awful might happen: 0 = Not at all Total MARCELA-7 score (0-4 normal; 5-9 mild; 10-14 moderate; 15-21 severe): 6 Source: Developed by Drs. Bonifacio Bethea, Danni Villa, Rico Wilcox and colleagues, with an educational saranya from [employer]. MARCELA-7 Assessment Billing MARCELA-7 Assessment Tool: MARCELA-7 Assessment 78794 Review of Systems Const Details: Const Denies chills, Denies fatigue, Denies fever(s), Denies headache(s) and Denies weakness ENT Denies dizziness and Denies headache(s) Card Denies chest pain, Denies lightheadedness, Denies dyspnea and Denies other (Palpitations) Resp Denies cough, Denies dyspnea, Denies wheezing and Denies other ( shortness of breath) GI Denies abdominal pain, Denies melena, Denies hematochezia, Denies change in bowel habits, Denies dyspepsia and Denies nausea Denies hematuria and Denies dysuria Musc Reports as per HPI Skin/Breast Denies rash, Denies unusual bruising and Denies wounds Neuro Denies abnormal gait, Denies dizziness, Denies headache(s), Denies memory loss, Denies numbness, Denies Sensory deficit (Neuro), Denies tingling and Denies weakness Psych Denies anxiety, Denies depression, Denies memory loss Endo Denies cold intolerance, Denies fatigue, Denies heat intolerance, Denies polydipsia and Denies polyuria Aller/Immun Denies wheezing Physical exam (Primary Care) Vital Signs: Last Vital Signs Temp 98 F 07/14/23 12:27 Pulse 81 07/14/23 12:27 Resp 13 07/14/23 12:27 BP 130/66 07/14/23 12:27 Pulse Ox 97 07/14/23 12:27 Oxygen Delivery Method Room Air 07/14/23 12:27 BMI result Body Mass Index 23.0 Tobacco/Smoking Status: Tobacco use Status Tobacco use date assessed 12/20/22 07/14/23 12:25 Patient Tobacco Use Status Current everyday Tobacco 07/14/23 12:25 Tobacco use type Cigarette 07/14/23 12:25 e-Cigarette/Vaping Use Never Used 07/14/23 12:25 Depression Screening Interpretation: Positive Depression Screening Follow-up: Existing condition and In treatment Thrive Assessment: Date of Thrive Assessment Date Thrive assessed 12/20/22 07/14/23 12:25 Const Other: General: no acute distress and well developed Nutritional Appearance: well nourished Orientation/consciousness: patient oriented x3 HENMT Head: Yes normocephalic and Yes atraumatic Eyes General: appearance normal, both eyes and all related structures Pupils: Equal, round and reactive pupils present EOM: EOMs intact bilaterally Resp Effort & Inspection: normal respiratory effort Auscultation: clear to auscultation bilaterally Cardio Rate: regular rate Rhythm: regular rhythm Heart sounds: S1 normal heart sound present, S2 normal heart sound present, no gallops, + murmurs and no rubs GI Palpation (GI): No Abdominal aortic bruit present, Soft to palpation, nontender, No hepatosplenomegaly present and No Rebound tenderness present Auscultation: normal bowel sounds General: Yes no CVA tenderness Back/Spine/Pelvis Back: no CVA tenderness Cervical Spine: cervical ROM normal and No Cervical spine tenderness Thoracic/Lumbar Spine: thoraco-lumbar ROM normal, No pain with thoraco-lumbar ROM, No thoracic spinal tenderness and No lumbar spinal tenderness Extrem General: Yes normal to inspection, No edema and No calf tenderness Tenderness to palpation of the right deltoid adjacent the axilla. No overt trauma/injury Skin General: warm and dry. Normal skin color. Normal skin turgor Neuro General: patient oriented x3, gait normal and no focal neuro deficit Cranial nerves: Yes Equal, round and reactive pupils present Cognition (Neuro): normal cognition Gait exam (Neuro): Normal gait present Sensory Exam: No Sensory deficit (Neuro) Psych Appearance: grossly normal Affect: normal affect Attitude: cooperative Thought process: Normal thought process present Results AMB Hemoglobin A1c AMB Hemoglobin A1c 5.8 % Last Edit by Maryuri Tillman MA on 07/14/23 12:59 Assessment and Plan Assessment & Plan (1) Type 2 diabetes mellitus: Code(s): E11.9 - Type 2 diabetes mellitus without complications Qualifiers: Diabetes mellitus complication status: without complication Plan: A1c today is 5.8%, within goal of less than 7.0% She notes that she stopped taking metformin as advised by her supervisor special services ADA diet and routine exercise encouraged Encouraged to get outstanding lipid panel and urine microalbumin/creatinine ratio blood work done Follow-up in 3 months or return sooner with symptoms or concerns Verbalized understanding and agreed with treatment plan Will have patient sign an JOAO today for her supervisor special services and electric train driver so that those records can be reviewed (2) Hypertension: Code(s): I10 - Essential (primary) hypertension Qualifiers: Hypertension type: primary hypertension Qualified Code(s): I10 - Essential (primary) hypertension Plan: Blood pressure is 130/66, slightly above goal of less than 130/80 Continue current treatment regimen Low-sodium diet encouraged Follow-up in 3 months Verbalized understanding and agreed with treatment (3) Anxiety and depression: Code(s): F41.9 - Anxiety disorder, unspecified; F32.A - Depression, unspecified Plan: Reports controlled anxiety and depression symptoms or current treatment regimen PHQ-9 and MARCELA-7 scores revealed mild depression and anxiety respectively Continue current treatment regimen Routine exercise encouraged Follow-up in 3 months or return sooner with symptoms or concerns Verbalized understanding and agreed with treatment plan (4) Pain of right deltoid: Code(s): M79.18 - Myalgia, other site Plan: Tenderness to palpation of the right deltoid adjacent the axilla. No overt trauma/injury Likely strain Advised to take Tylenol as prescribed Warm/cold compresses encouraged Follow-up with worsening or new symptoms. May require PT evaluation Verbalized understanding and agreed with treatment plan Orders: Orders AMB Hemoglobin A1c Today E11.9 - Type 2 diabetes mellitus without complications Medications: New acetaminophen ER (Tylenol 8 Hour) 650 mg PO Q8H PRN 60 tabs 0RF pain Coding Level of Care Code Est Pt Level 4 (73538) Diagnoses Type 2 diabetes mellitus E11.9 Diabetes mellitus complication status: without complication Primary hypertension I10 Hypertension type: primary hypertension Anxiety and depression F41.9; F32.A Pain of right deltoid M79.18 Additional Codes MARCELA-7 Assessment Billing - MARCELA-7 Assessment Tool: MARCELA-7 Assessment [id number] ([id number])
[2023-07-14 12:27] VITALS: BP 130/66; PULSE 81; RESP 13; TEMP 36.6; O2SAT 97; BMI 23.0
== END 2023-07-14 13:06 | disposition home or self-care (01) ==
PROVIDERS: PCP Nurse Practitioner Family; Visit Provider Nurse Practitioner Family
DX: E11.9 Type 2 diabetes mellitus without complications (principal); I10 Essential (primary) hypertension; F41.9 Anxiety disorder, unspecified; F32.A Depression, unspecified; M79.18 Myalgia, other site
CPT/HCPCS: 83036; 99214

== ENCOUNTER → 2023-07-14 23:59 | Outpatient (BNV) | payer MEDICARE, SELFPAY ==
--- NOTE | 2023-07-15 16:18 | MHC.OFFVIS ---
Intake Intake Visit Reasons: Remote Device Check- Biotronik Allergies acetaminophen [From Percocet] Allergy (Intermediate, Verified 07/14/23 12:36) Itching oxycodone [From Percocet] Allergy (Intermediate, Verified 07/14/23 12:36) Itching ibuprofen [From Motrin] Allergy (Unknown, Verified 07/14/23 12:36) Swelling moltrin Allergy (Severe, Uncoded 01/17/23 10:45) Swelling PFSH Medical History Cardiac pacemaker in situ Aortic stenosis Restless leg syndrome No pertinent family history Hyperlipidemia Chronic back pain Osteoarthritis GERD (gastroesophageal reflux disease) Anxiety and depression Type 2 diabetes mellitus Hypertension CKD (chronic kidney disease) stage 3, GFR 30-59 ml/min Hypothyroidism Cataracts, bilateral COPD (chronic obstructive pulmonary disease) Deafness in right ear Stroke Surgical History History of esophagogastroduodenoscopy (EGD) H/O colonoscopy History of tonsillectomy History of appendectomy H/O: hysterectomy History of back surgery H/O thyroidectomy H/O endarterectomy S/P cardiac pacemaker procedure Family History Mother Bladder cancer Brother Bladder cancer Social History Housing: House Patient Tobacco Use Status: Current everyday Tobacco user Tobacco use type: Cigarette Cigarette Packs Per Day: 0.4 Cigarettes Per Day: 10 Years Smoked: 70 e-Cigarette/Vaping Use: Never Used service: No Current occupational status: retired Cognitive needs: No Hearing needs: No Vision needs: No Office Procedures Cardiac Device Check Cardiac Device Check Details: Remote pacemaker report generated 07/15/2023. Pacemaker function is adequate [id number] Cardiac Device Interrogation, pacemaker Procedure code (CPT) selection complete Results AMB Hemoglobin A1c AMB Hemoglobin A1c 5.8 % Last Edit by Maryuri Tillman MA on 07/14/23 12:59 Assessment & Plan Assessment & Plan (1) Cardiac pacemaker in situ: Comment: Biotronik dual-chamber pacemaker in place, placed in 2015 Code(s): Z95.0 - Presence of cardiac pacemaker Plan: See above Coding Level of Care Code Procedure Only Diagnoses Cardiac pacemaker in situ Z95.0 CPT Codes Cardiac Device Check - Cardiac Device 12: [id number] Cardiac Device Interrogation, pacemaker ([id number])
== END ==
PROVIDERS: PCP Nurse Practitioner Family; Visit Provider Internal Medicine Cardiovascular Disease
DX: I35.0 Nonrheumatic aortic (valve) stenosis (principal); Z95.0 Presence of cardiac pacemaker
CPT/HCPCS: 93294

== ENCOUNTER → 2023-08-14 23:59 | Outpatient (BNV) | payer MEDICARE, SELFPAY ==
--- NOTE | 2023-08-20 10:08 | MHC.OFFVIS ---
Intake Intake Visit Reasons: REmote device check- Biotronik Allergies acetaminophen [From Percocet] Allergy (Intermediate, Verified 07/14/23 12:36) Itching oxycodone [From Percocet] Allergy (Intermediate, Verified 07/14/23 12:36) Itching ibuprofen [From Motrin] Allergy (Unknown, Verified 07/14/23 12:36) Swelling moltrin Allergy (Severe, Uncoded 01/17/23 10:45) Swelling PFSH Medical History Cardiac pacemaker in situ Aortic stenosis Restless leg syndrome No pertinent family history Hyperlipidemia Chronic back pain Osteoarthritis GERD (gastroesophageal reflux disease) Anxiety and depression Type 2 diabetes mellitus Hypertension CKD (chronic kidney disease) stage 3, GFR 30-59 ml/min Hypothyroidism Cataracts, bilateral COPD (chronic obstructive pulmonary disease) Deafness in right ear Stroke Surgical History History of esophagogastroduodenoscopy (EGD) H/O colonoscopy History of tonsillectomy History of appendectomy H/O: hysterectomy History of back surgery H/O thyroidectomy H/O endarterectomy S/P cardiac pacemaker procedure Family History Mother Bladder cancer Brother Bladder cancer Social History Housing: House Patient Tobacco Use Status: Current everyday Tobacco user Tobacco use type: Cigarette Cigarette Packs Per Day: 0.4 Cigarettes Per Day: 10 Years Smoked: 70 e-Cigarette/Vaping Use: Never Used service: No Current occupational status: retired Cognitive needs: No Hearing needs: No Vision needs: No Office Procedures Cardiac Device Check Cardiac Device Check Details: Remote pacemaker report generated 08/15/2023. Pacemaker function is adequate [id number] Cardiac Device Interrogation, pacemaker Procedure code (CPT) selection complete Assessment & Plan Assessment & Plan (1) Cardiac pacemaker in situ: Comment: Biotronik dual-chamber pacemaker in place, placed in 2015 Code(s): Z95.0 - Presence of cardiac pacemaker Plan: See above Coding Level of Care Code Procedure Only Diagnoses Cardiac pacemaker in situ Z95.0 CPT Codes Cardiac Device Check - Cardiac Device 12: [id number] Cardiac Device Interrogation, pacemaker ([id number])
== END ==
PROVIDERS: PCP Nurse Practitioner Family; Visit Provider Internal Medicine Cardiovascular Disease
DX: Z45.018 Encounter for adjustment and management of other part of cardiac pacemaker (principal)
CPT/HCPCS: 93294

== ENCOUNTER → 2023-09-14 23:59 | Outpatient (BNV) | payer MEDICARE, SELFPAY ==
--- NOTE | 2023-09-16 16:00 | MHC.OFFVIS ---
Intake Visit Reasons: Remote device check- Biotronik Allergies acetaminophen [From Percocet] Allergy (Intermediate, Verified 07/14/23 12:36) Itching oxycodone [From Percocet] Allergy (Intermediate, Verified 07/14/23 12:36) Itching ibuprofen [From Motrin] Allergy (Unknown, Verified 07/14/23 12:36) Swelling moltrin Allergy (Severe, Uncoded 01/17/23 10:45) Swelling PFSH Medical History Cardiac pacemaker in situ Aortic stenosis Restless leg syndrome No pertinent family history Hyperlipidemia Chronic back pain Osteoarthritis GERD (gastroesophageal reflux disease) Anxiety and depression Type 2 diabetes mellitus Hypertension CKD (chronic kidney disease) stage 3, GFR 30-59 ml/min Hypothyroidism Cataracts, bilateral COPD (chronic obstructive pulmonary disease) Deafness in right ear Stroke Surgical History History of esophagogastroduodenoscopy (EGD) H/O colonoscopy History of tonsillectomy History of appendectomy H/O: hysterectomy History of back surgery H/O thyroidectomy H/O endarterectomy S/P cardiac pacemaker procedure Family History Mother Bladder cancer Brother Bladder cancer Social History Housing: House Patient Tobacco Use Status: Current everyday Tobacco user Tobacco use type: Cigarette Cigarette Packs Per Day: 0.4 Cigarettes Per Day: 10 Years Smoked: 70 e-Cigarette/Vaping Use: Never Used service: No Current occupational status: retired Cognitive needs: No Hearing needs: No Vision needs: No Office Procedures Cardiac Device Check Cardiac Device Check Details: Remote pacemaker report generated 09/15/2023. Pacemaker function is adequate. Atrial pacing 97% of the time [id number] Cardiac Device Interrogation, pacemaker Procedure code (CPT) selection complete Assessment & Plan Assessment & Plan (1) Cardiac pacemaker in situ: Comment: Biotronik dual-chamber pacemaker in place, placed in 2015 Code(s): Z95.0 - Presence of cardiac pacemaker Category: Medical Plan: See above Coding Level of Care Code Procedure Only Diagnoses Cardiac pacemaker in situ Z95.0 CPT Codes Cardiac Device Check - Cardiac Device 12: [id number] Cardiac Device Interrogation, pacemaker ([id number])
== END ==
PROVIDERS: PCP Nurse Practitioner Family; Visit Provider Internal Medicine Cardiovascular Disease
DX: Z45.018 Encounter for adjustment and management of other part of cardiac pacemaker (principal)
CPT/HCPCS: 93294

== ENCOUNTER 2023-10-13 09:44 | Outpatient (AMB) | payer MEDICARE, SELFPAY ==
--- NOTE | 2023-10-13 10:01 | A.OFFPC_ITS ---
Vital Signs 10/13/23 10:06 10/13/23 10:33 Height 5 ft 4 in Weight 136 lb 6 oz BMI 23.4 BP 144/60 H 130/70 Blood Pressure Location Lt brachial Rt brachial Position Sitting Sitting Respiration 15 Pulse 108 H 80 Pulse Source Pulse Oximeter Auscultation Temp 97.6 F Temp Source Temporal Artery Scan Pulse Oximetry (%) 98 Oxygen Delivery Method Room Air Intake Visit Reasons: HTN, DM, anxiety, depression - see comments Intake Note: Patient needs refill on levothyroxine. Marketing Rotation Associate Required: No Accompanied by: Self / Same As Patient Allergies acetaminophen [From Percocet] Allergy (Intermediate, Verified 07/14/23 12:36) Itching oxycodone [From Percocet] Allergy (Intermediate, Verified 07/14/23 12:36) Itching Seasonal Allergies Allergy (Intermediate, Verified 10/13/23 10:11) Itchy Eyes ibuprofen [From Motrin] Allergy (Unknown, Verified 07/14/23 12:36) Swelling moltrin Allergy (Severe, Uncoded 01/17/23 10:45) Swelling Tobacco use date assessed: 07/14/23 Fall risk assessment: No Falls in past year Last assessed Fall Risk: 10/13/23 Dental Screening Dental Screen Date: 07/14/23 HPI HPI Comments History of Present Illness Details 78-year-old female presents for hyperten marcella, diabetes, anxiety, and depression follow-up She admits to taking her medications as prescribed without adverse reactions. She has no longer taking metformin since it was discontinued by her psychology department chair a few months ago She reports persistent chronic diarrhea, at least 5 episodes daily. She also reports bloody diarrhea for few hours 3 days ago and 2 weeks prior; no abdominal pain, nausea or vomiting. She is followed by [facility]; her last visit was in June; she was advised to follow-up in 4 weeks but she has not follow-up nor has she scheduled a follow-up appointment She anxiety and depressive symptoms with passive SI. Denies active SI/HI She reports constant runny nose. No nasal congestion, difficulty breathing, sneezing or cough She states that her last colonoscopy was 3 years ago in [place]. She does not recall name of the practice [facility] Medical History Cardiac pacemaker in situ Aortic stenosis Restless leg syndrome No pertinent family history Hyperlipidemia Chronic back pain Osteoarthritis GERD (gastroesophageal reflux disease) Anxiety and depression Type 2 diabetes mellitus Hypertension CKD (chronic kidney disease) stage 3, GFR 30-59 ml/min Hypothyroidism Cataracts, bilateral COPD (chronic obstructive pulmonary disease) Deafness in right ear Stroke Surgical History History of esophagogastroduodenoscopy (EGD) H/O colonoscopy History of tonsillectomy History of appendectomy H/O: hysterectomy History of back surgery H/O thyroidectomy H/O endarterectomy S/P cardiac pacemaker procedure Family History Mother Bladder cancer Brother Bladder cancer Social History Housing: House Patient Tobacco Use Status: Current everyday Tobacco user Tobacco use type: Cigarette Cigarette Packs Per Day: 0.25 Cigarettes Per Day: 5 Years Smoked: 70 e-Cigarette/Vaping Use: Never Used service: No Current occupational status: retired Cognitive needs: No Hearing needs: No Vision needs: No Questionnaire PHQ-9 Over the last 2 weeks, how often have you been bothered by any of the following problems? 1. Little interest or pleasure in doing things: nearly every day 2. Feeling down, depressed, or hopeless: nearly every day 3. Trouble falling or staying asleep, or sleeping too much: more than half the days 4. Feeling tired or having little energy: nearly every day 5. Poor appetite or overeating: several days 6. Feeling bad about yourself - or that you are a failure or have let yourself or your family down: several days 7. Trouble concentrating on things, such as reading the newspaper or watching television: several days 8. Moving or speaking so slowly that other people could have noticed. Or the opposite - being so fidgety or restless that you have been moving around a lot more than usual: not at all 9. Thoughts that you would be better off or of hurting yourself in some way: several days Total score: 15 Depression Screening Interpretation: Positive Depression Screening Follow-up: Existing condition and In treatment Depression Screening Done: Yes 54605 - PHQ-9 Billing: Yes Source: Developed by Drs. Bonifacio Bethea, Danni Villa, Rico Wilcox and colleagues, with an educational saranya from [employer]. Thrive Questionnaire Date Thrive assessed: 12/20/22 MARCELA-7 AMB Questionnaire MARCELA-7 Date MARCELA - 7 assessed: 10/13/23 Feeling nervous, anxious, or on edge: 3 = Nearly every day Not being able to stop or control worryin = Not at all Worrying too much about different things: 0 = Not at all Trouble relaxin = Nearly every day Being so restless that it is hard to sit still: 3 = Nearly every day Becoming easily annoyed or irritable: 1 = Several days Feeling afraid as if something awful might happen: 1 = Several days Total MARCELA-7 score (0-4 normal; 5-9 mild; 10-14 moderate; 15-21 severe): 11 Source: Developed by Drs. Bonifacio Bethea, Danni Villa, Rico Wilcox and colleagues, with an educational saranya from [employer]. MARCELA-7 Assessment Billing MARCELA-7 Assessment Tool: MARCELA-7 Assessment 13916 Review of Systems Const Details: Const Denies chills, Denies fatigue, Denies fever(s), Denies headache(s) and Denies weakness ENT Reports as per HPI Card Denies chest pain, Denies lightheadedness, Denies dyspnea and Denies other (Palpitations) Resp Denies cough, Denies dyspnea, Denies wheezing and Denies other ( shortness of breath) GI Reports chronic persistent diarrhea, Denies abdominal pain, Denies melena, Denies hematochezia, Denies dyspepsia and Denies nausea Denies hematuria and Denies dysuria Musc Denies abnormal gait, Denies myalgias, Denies arthralgias, Denies numbness and Denies tingling Skin/Breast Denies rash, Denies unusual bruising and Denies wounds Neuro Denies abnormal gait, Denies dizziness, Denies headache(s), Denies memory loss, Denies numbness, Denies Sensory deficit (Neuro), Denies tingling and Denies weakness Psych Reports anxiety, Reports depression, Denies memory loss Endo Denies cold intolerance, Denies fatigue, Denies heat intolerance, Denies polydipsia and Denies polyuria Aller/Immun Denies wheezing Physical exam (Primary Care) Vital Signs: Last Vital Signs Temp 97.6 F 10/13/23 10:06 Pulse 108 H 10/13/23 10:06 Resp 15 10/13/23 10:06 BP 144/60 H 10/13/23 10:06 Pulse Ox 98 10/13/23 10:06 Oxygen Delivery Method Room Air 10/13/23 10:06 BMI result Body Mass Index 23.4 Tobacco/Smoking Status: Tobacco use Status Tobacco use date assessed 07/14/23 10/13/23 10:01 Patient Tobacco Use Status Current everyday Tobacco 10/13/23 10:01 Tobacco use type Cigarette 10/13/23 10:01 e-Cigarette/Vaping Use Never Used 10/13/23 10:01 PHQ-9: PHQ-9 Score PHQ-9: Total score 15 10/13/23 10:14 Depression Screening Interpretation: Positive Depression Screening Follow-up: Existing condition and In treatment Thrive Assessment: Date of Thrive Assessment Date Thrive assessed 12/20/22 10/13/23 10:01 Const Other: General: no acute distress and well developed Nutritional Appearance: well nourished Orientation/consciousness: patient oriented x3 HENMT Head: Yes normocephalic and Yes atraumatic Eyes General: appearance normal, both eyes and all related structures Pupils: Equal, round and reactive pupils present EOM: EOMs intact bilaterally Resp Effort & Inspection: normal respiratory effort Auscultation: clear to auscultation bilaterally Cardio Rate: regular rate Rhythm: regular rhythm Heart sounds: S1 normal heart sound present, S2 normal heart sound present, no gallops, no murmurs and no rubs GI Palpation (GI): No Abdominal aortic bruit present, Soft to palpation, nontender, No hepatosplenomegaly present and No Rebound tenderness present Auscultation: normal bowel sounds General: Yes no CVA tenderness Back/Spine/Pelvis Back: no CVA tenderness Cervical Spine: cervical ROM normal and No Cervical spine tenderness Thoracic/Lumbar Spine: thoraco-lumbar ROM normal, No pain with thoraco-lumbar ROM, No thoracic spinal tenderness and No lumbar spinal tenderness Extrem General: Yes normal to inspection, No edema and No calf tenderness Skin General: warm and dry. Normal skin color. Normal skin turgor Neuro General: patient oriented x3, gait normal and no focal neuro deficit Cranial nerves: Yes Equal, round and reactive pupils present Cognition (Neuro): normal cognition Gait exam (Neuro): Normal gait present Sensory Exam: No Sensory deficit (Neuro) Psych Appearance: grossly normal Affect: normal affect Attitude: cooperative Thought process: Normal thought process present Results AMB Hemoglobin A1c AMB Hemoglobin A1c 5.1 % Last Edit by TERRY Witt on 10/13/23 10:1 7 Results Reviewed Results Reviewed: Laboratory Last Values Hgb A1c (Clinic) 5.1 % (4.0-6.0) 10/13/23 10:15 Assessment and Plan Assessment & Plan (1) Type 2 diabetes mellitus: Code(s): E11.9 - Type 2 diabetes mellitus without complications Qualifiers: Diabetes mellitus complication status: without complication Plan: A1c today is 5.1%, within goal of less than 7.0%. Previous A1c was 5.8% She stopped taking metformin a few months ago after he was was discontinued by her psychology department chair Healthy diet and routine exercise encouraged Will check A1c in 6 months Verbalized understanding and agreed with treatment plan (2) Hypertension: Code(s): I10 - Essential (primary) hypertension Qualifiers: Hypertension type: primary hypertension Qualified Code(s): I10 - Essential (primary) hypertension Plan: Resting blood pressure is 130/70, within goal of less than 130/80 Continue current treatment regimen Low-sodium diet and routine exercise encouraged Will continue to monitor Verbalized understanding and agreed with treatment plan (3) Anxiety and depression: Code(s): F41.9 - Anxiety disorder, unspecified; F32.A - Depression, unspecified Plan: She anxiety and depressive symptoms with passive SI PHQ-9 and MARCELA-7 scores revealed moderately severe depression and moderate anxiety respectively Denies SI/HI Was start buspirone 7.5 mg twice daily to target anxiety. Advised to take as prescribed. Instructed on the risks, benefits, and potential adverse reactions of the medication Continue to take sertraline as prescribed Healthy diet and routine exercise encouraged Follow-up in 2 weeks or sooner with worsening or new symptoms Verbalized understanding and agreed with the treatment plan (4) Diarrhea: Code(s): R19.7 - Diarrhea, unspecified Plan: She reports persistent chronic diarrhea, at least 5 episodes daily. She also reports bloody diarrhea for few hours 3 days ago and 2 weeks prior; no abdominal pain, nausea or vomiting She has not followed up with [facility] as planned Encouraged to continue current treatment regimen and call and schedule an appointment with Gastroenterology; contact information given Her last colonoscopy was 3 years ago in [place]; record not on file. She does not recall name of practice. Referred to [facility] for colonoscopy Will check labs Follow-up with worsening or new symptoms Verbalized understanding and agreed with the treatment plan (5) Colon cancer screening: Code(s): Z12.11 - Encounter for screening for malignant neoplasm of colon Plan: As above (6) Runny nose: Code(s): R09.89 - Other specified symptoms and signs involving the circulatory and respiratory systems Plan: Reports constant runny nose. No nasal congestion, difficulty breathing, sneezing or cough No evidence of bacterial infection Likely allergies Cetirizine 10 mg daily ordered. Advised to take as prescribed. Instructed on the risks, benefits, potential adverse reactions of the medications Follow-up with worsening or new symptoms Verbalized understanding and agreed with the treatment plan (7) CKD (chronic kidney disease) stage 3, GFR 30-59 ml/min: Code(s): N18.30 - Chronic kidney disease, stage 3 unspecified Qualifiers: Chronic kidney disease stage 3 subtype: stage 3b (GFR 30-44) Qualified Code(s): N18.32 - Chronic kidney disease, stage 3b Plan: She was followed by [facility] nephrology but requested nephrology referral to a new practice. She was referred to [facility] in January 2023. According to nephrology department notes, she was contacted via telephone and sent a letter to call and schedule an appointment; however, she never call to schedule an appointment. [facility] nephrology contact information given an encouraged to call and schedule an appointment. She verbalized understanding and agreed with treatment plan Orders: Orders Microalbumin, Random (w Creat) Today E11.9 - Type 2 diabetes mellitus without complications AMB Hemoglobin A1c Today E11.9 - Type 2 diabetes mellitus without complications Complete Blood Count Auto Diff Today E11.9 - Type 2 diabetes mellitus without complications, R19.7 - Diarrhea, unspecified Comprehensive [place]. Panel Fast Today E11.9 - Type 2 diabetes mellitus without complications, R19.7 - Diarrhea, unspecified TSH reflex Free T4 Today E03.9 - Hypothyroidism, unspecified Referrals Gastroenterology Referral R19.7 - Diarrhea, unspecified, Z12.11 - Encounter fo r screening for malignant neoplasm of colon Medications: New buspirone 7.5 mg PO BID 30 days 60 tabs 3RF cetirizine (Zyrtec) 10 mg PO DAILY 30 days 30 tabs 1RF Coding Level of Care Code Est Pt Level 4 (22774) Complex EM visit Add On G2211 Diagnoses Type 2 diabetes mellitus E11.9 Diabetes mellitus complication status: without complication Primary hypertension I10 Hypertension type: primary hypertension Anxiety and depression F41.9; F32.A Diarrhea R19.7 Colon cancer screening Z12.11 Runny nose R09.89 Stage 3b chronic kidney disease N18.32 Chronic kidney disease stage 3 subtype: stage 3b (GFR 30-44) Additional Codes MARCELA-7 Assessment Billing - MARCELA-7 Assessment Tool: MARCELA-7 Assessment 15071 ([id number])
[2023-10-13 10:06] VITALS: BP 144/60; PULSE 108; RESP 15; TEMP 36.4; O2SAT 98; BMI 23.4
[2023-10-13 10:33] VITALS: BP 130/70; PULSE 80
== END 2023-10-13 11:04 | disposition home or self-care (01) ==
PROVIDERS: PCP Nurse Practitioner Family; Visit Provider Nurse Practitioner Family
DX: I12.9 Hypertensive chronic kidney disease with stage 1 through stage 4 chronic kidney disease, or unspecified chronic kidney disease (principal); E11.22 Type 2 diabetes mellitus with diabetic chronic kidney disease; N18.32 Chronic kidney disease, stage 3b; F41.9 Anxiety disorder, unspecified; F32.A Depression, unspecified; R19.7 Diarrhea, unspecified; Z12.11 Encounter for screening for malignant neoplasm of colon; R09.89 Other specified symptoms and signs involving the circulatory and respiratory systems
CPT/HCPCS: 83036; 99214; G2211

== ENCOUNTER 2023-10-13 10:54 | Outpatient (REF) | payer MEDICARE, SELFPAY ==
[2023-10-13 19:58] LABS: Creatinine Urine 147.32 mg/dL
== END 2023-10-13 10:55 | disposition home or self-care (01) ==
LOC: HO.LAB 10:54
PROVIDERS: Visit Provider Nurse Practitioner Family
DX: E11.9 Type 2 diabetes mellitus without complications (principal)
CPT/HCPCS: 82043; 82570

== ENCOUNTER → 2023-10-13 23:59 | Outpatient (BNV) | payer MEDICARE, SELFPAY ==
--- NOTE | 2023-10-14 12:28 | A.OFFVIS_ITS ---
Intake Visit Reasons: Remote device check-Biotronik Allergies acetaminophen [From Percocet] Allergy (Intermediate, Verified 07/14/23 12:36) Itching oxycodone [From Percocet] Allergy (Intermediate, Verified 07/14/23 12:36) Itching Seasonal Allergies Allergy (Intermediate, Verified 10/13/23 10:11) Itchy Eyes ibuprofen [From Motrin] Allergy (Unknown, Verified 07/14/23 12:36) Swelling moltrin Allergy (Severe, Uncoded 01/17/23 10:45) Swelling PFSH Medical History Cardiac pacemaker in situ Aortic stenosis Restless leg syndrome No pertinent family history Hyperlipidemia Chronic back pain Osteoarthritis GERD (gastroesophageal reflux disease) Anxiety and depression Type 2 diabetes mellitus Hypertension CKD (chronic kidney disease) stage 3, GFR 30-59 ml/min Hypothyroidism Cataracts, bilateral COPD (chronic obstructive pulmonary disease) Deafness in right ear Stroke Surgical History History of esophagogastroduodenoscopy (EGD) H/O colonoscopy History of tonsillectomy History of appendectomy H/O: hysterectomy History of back surgery H/O thyroidectomy H/O endarterectomy S/P cardiac pacemaker procedure Family History Mother Bladder cancer Brother Bladder cancer Social History Housing: House Patient Tobacco Use Status: Current everyday Tobacco user Tobacco use type: Cigarette Cigarette Packs Per Day: 0.25 Cigarettes Per Day: 5 Years Smoked: 70 e-Cigarette/Vaping Use: Never Used service: No Current occupational status: retired Cognitive needs: No Hearing needs: No Vision needs: No Office Procedures Cardiac Device Check Cardiac Device Check Details: Remote pacemaker report generated 10/13/2023. Atrial pacing 97% of time. Pacemaker function is adequate [id number] Cardiac Device Interrogation, pacemaker Procedure code (CPT) selection complete Results AMB Hemoglobin A1c AMB Hemoglobin A1c 5.1 % Last Edit by TERRY Witt on 10/13/23 10:1 7 Assessment & Plan Assessment & Plan (1) Cardiac pacemaker in situ: Comment: Biotronik dual-chamber pacemaker in place, placed in 2016 Code(s): Z95.0 - Presence of cardiac pacemaker Category: Medical Plan: see above Coding Level of Care Code Procedure Only Diagnoses Cardiac pacemaker in situ Z95.0 CPT Codes Cardiac Device Check - Cardiac Device 12: [id number] Cardiac Device Interro gation, pacemaker ([id number])
== END ==
PROVIDERS: PCP Nurse Practitioner Family; Visit Provider Internal Medicine Cardiovascular Disease
DX: Z45.018 Encounter for adjustment and management of other part of cardiac pacemaker (principal)
CPT/HCPCS: 93294

== ENCOUNTER 2023-10-17 08:44 | Outpatient (REF) | payer MEDICARE, SELFPAY ==
[2023-10-17 11:17] LABS: Appearance Urine Clear; Color Urine Yellow; Glucose Urine UA Negative (Negative); Leukocyte Esterase Urine Negative (Negative); Nitrite Urine Negative (Negative); PH 5.5 (5.0-9.0); Specific Gravity - Urine 1.015 (1.005-1.025); UMIC TRIGGER UACC YES; Urine Blood Negative (Negative); Urine Ketones Negative (Negative); Urine Protein 100 (2+) mg/dL (Neg-Trace)
[2023-10-17 11:20] LABS: Bacteria Urine None Seen (None Seen); Hyaline Casts Urine 0-2 /LPF (0-2); RBC Urine 0-2 /HPF (0-2); WBC Urine 0-5 /HPF (0-5)
[2023-10-17 11:21] LABS: MANUAL DIFF FLAG NO
[2023-10-17 11:31] LABS: Basophils Percent Auto 0.5 % (0-2); Eosinophils Percent Auto 13.5 % (0-4); Hemoglobin 9.9 g/dl (12.0-16.0); Imm Gran Abs Auto 0.02 X10*3/uL (0.00-0.03); Imm Gran Pct Auto 0.3 % (0.0-0.4); Lymphocytes Absolute Auto 0.8 X10*3/uL (1.2-4.9); Lymphocytes Percent Auto 10.1 % (20-40); Mean Corpuscular HGB Conc 31.9 g/dl (31.0-35.0); Mean Corpuscular Hemoglobin 31.7 pg (27.0-33.0); Mean Corpuscular Volume 99.4 fL (80.0-98.0); Mean Platelet Volume 9.7 fL (9.4-12.3); Monocytes Absolute Auto 0.4 X10*3/uL (0.1-1.2); Monocytes Percent Auto 4.9 % (2-11); Neutrophils Absolute Auto 5.2 x10*3/uL (2.0-8.3); Neutrophils Percent Auto 70.7 % (45-73); Platelet Count 239 X10*3/uL (160-400); Red Blood Count 3.12 X10*6/uL (4.20-5.50); Red Cell Distribution Width 13.1 % (11.0-16.0); White Blood Count 7.4 X10*3/uL (4.8-10.8)
[2023-10-17 12:11] LABS: Alanine Aminotransferase 12 U/L (0-31); Albumin Level 4.1 g/dL (3.5-5.0); Alkaline Phosphatase 83 U/L (39-117); Anion Gap 11 (12-20); Aspartate Amino Transferase 15 U/L (5-31); Bilirubin Total 0.2 mg/dL (0.0-1.0); Blood Urea Nitrogen 22 mg/dL (9-16); Calcium 10.3 mg/dL (8.4-10.2); Carbon Dioxide 21 mmol/L (22-29); Chloride 115 mmol/L (96-108); Cholesterol 189 mg/dL (<200); Estimated Glomerular Filt Rate 35; Glucose Fasting 95 mg/dL (60-99); Glucose Random 94 mg/dL (60-115); HDL Cholesterol 41 mg/dL (>40); LDL Cholesterol Calculated 129 mg/dL (<100); Potassium 4.8 mmol/L (3.3-5.1); Sodium 142 mmol/L (135-145); TSH reflex Free T4 1.45 uIU/mL (0.32-4.0); Total Protein 7.3 g/dL (6.5-8.0); Triglycerides 96 mg/dL (<150)
[2023-10-17 12:45] LABS: Microalbum/Creatinine Ratio Ur 792.8 ug/mg cr (<30)
[2023-10-17 13:01] LABS: Immature Retic Fraction 13.8 % (3.0-15.9); Reticulocyte Percent 2.7 % (0.5-1.8); Reticulocytes Absolute 0.084 X10*6/uL (0.026-0.095)
[2023-10-17 13:04] LABS: Iron 44 mcg/dL (30-160); Percent Iron Saturation 13 % (15-50); Total Iron Binding Capacity 332 mcg/dL (228-428); Unsaturated Iron Binding 288 ug/dL
[2023-10-17 13:17] LABS: Ferritin 28 ng/mL (10-250)
[2023-10-17 13:32] LABS: Folate 3.2 ng/mL (> or = 4.0); Vitamin B12 454 pg/mL (200-900)
[2023-10-21 22:44] LABS: Gliadin Deamidated IgA Ab <1.0 U/mL; Gliadin Deamidated IgG Ab <1.0 U/mL
== END 2023-10-17 08:45 | disposition home or self-care (01) ==
LOC: HO.WFDLDS 08:44
PROVIDERS: Nurse Practitioner; Visit Provider Nurse Practitioner Family
DX: I10 Essential (primary) hypertension (principal); D64.9 Anemia, unspecified; E03.9 Hypothyroidism, unspecified; R19.7 Diarrhea, unspecified; E11.9 Type 2 diabetes mellitus without complications; I25.10 Atherosclerotic heart disease of native coronary artery without angina pectoris; I35.0 Nonrheumatic aortic (valve) stenosis; R10.33 Periumbilical pain
CPT/HCPCS: 36415; 80048; 80053; 80061; 81001; 82043; 82570; 82607; 82728; 82746; 83540; 84443; 85025; 85045; 86258

== ENCOUNTER 2023-10-27 12:20 | Outpatient (AMB) | payer MEDICARE, SELFPAY ==
[2023-10-27 12:57] VITALS: BP 154/62; PULSE 60; BMI 23.3
--- NOTE | 2023-10-27 12:57 | A.OFFVIS_ITS ---
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 Required: No Allergies acetaminophen [From Percocet] Allergy (Intermediate, Verified 10/27/23 13:03) Itching oxycodone [From Percocet] Allergy (Intermediate, Verified 10/27/23 13:03) Itching Seasonal Allergies Allergy (Intermediate, Verified 10/27/23 13:03) Itchy Eyes ibuprofen [From Motrin] Allergy (Unknown, Verified 10/27/23 13:03) Swelling moltrin Allergy (Severe, Uncoded 10/27/23 13:03) Swelling Medication List - Last Reconciled 10/27/23 by Joyce Ramos NP-C acetaminophen ER (Tylenol 8 Hour) 650 mg PO Q8H PRN amlodipine 10 mg PO DAILY atorvastatin 80 mg PO BEDTIME 30 days veesdywjjx-vcqtjnjm-pqnensxwiz 160-9-4.8 mcg/actuation (Breztri Aerosphere) 2 inhalations inhalation BID buspirone 7.5 mg PO BID 30 days cetirizine (Zyrtec) 10 mg PO DAILY 30 days cilostazol 100 mg PO BID 30 days clopidogrel 75 mg PO DAILY 30 days ferrous sulfate 325 mg PO QAM folic acid 0.4 mg PO DAILY 30 days gabapentin 400 mg PO TID levothyroxine 137 mcg PO DAILY 30 days lisinopril 2.5 mg PO QPM pramipexole 0.25 mg (2 x 0.125 mg) PO DAILY 30 days psyllium husk (Metamucil) 1 tbsp PO DAILY sertraline 100 mg PO BID HPI HPI 6 mth f/up w/ biot NS: Details: Pallavi is a 78 me, diabetes, chronic kidney disease, smoking, COPD, aortic stenosis, pacemaker who presents for follow-up. Today she reports she has been feeling well since her last visit in April. She denies any chest discomfort at rest or with activity. She does have some shortness of breath with exertion but feels this symptom is stable. She continues to smoke 5 cigarettes per day and is working on reducing this further. She has no PND, orthopnea or edema. No lightheadedness, presyncope, syncope, falls. Pacemaker site is feeling well. Tells me she has stents in each carotid artery without recent evaluation. She reports having some plaque buildup in her leg arteries based on testing done in [place] but currently denies any claudication. Taking meds as directed. [facility] Medical History Cardiac pacemaker in situ Aortic stenosis Restless leg syndrome No pertinent family history Hyperlipidemia Chronic back pain Osteoarthritis GERD (gastroesophageal reflux disease) Anxiety and depression Type 2 diabetes mellitus Hypertension CKD (chronic kidney disease) stage 3, GFR 30-59 ml/min Hypothyroidism Cataracts, bilateral COPD (chronic obstructive pulmonary disease) Deafness in right ear Stroke Surgical History History of esophagogastroduodenoscopy (EGD) H/O colonoscopy History of tonsillectomy History of appendectomy H/O: hysterectomy History of back surgery H/O thyroidectomy H/O endarterectomy S/P cardiac pacemaker procedure Family History Mother Bladder cancer Brother Bladder cancer Social History Housing: House Patient Tobacco Use Status: Current everyday Tobacco user Tobacco use type: Cigarette Cigarette Packs Per Day: 0.25 Cigarettes Per Day: 5 Years Smoked: 70 e-Cigarette/Vaping Use: Never Used Substance Use Type: Marijuana service: No Current occupational status: retired Cognitive needs: No Hearing needs: No Vision needs: No Review of Systems Const All systems reviewed & are unremarkable except as noted in HPI and below ENT Denies dizziness Card Denies chest pain, Denies chest pain at rest, Denies chest pain with activity, Denies rapid heart rate, Denies pedal edema, Denies edema, Denies leg edema, Denies lightheadedness, Denies palpitations, Denies dyspnea, Denies dyspnea on exertion and Denies orthopnea Resp Denies cough, Denies dyspnea and Denies dyspnea on exertion GI Denies hematochezia and Denies change in stool character Musc Denies abnormal gait, Denies limited range of motion, Denies muscle cramps, Denies muscle weakness, Denies numbness, Denies radiating pain into limb, Denies stiffness and Denies tingling Neuro Denies abnormal gait, Denies dizziness, Denies numbness and Denies tingling Endo Denies palpitations Physical Exam Vital Signs: Last Vital Signs Pulse 60 10/27/23 12:57 BP 154/62 H 10/27/23 12:57 BMI result Body Mass Index 23.3 Const General: cooperative, healthy appearing, comfortable and no acute distress Orientation/consciousness: patient oriented x3 Neck Neck: Yes normal visual inspection and Yes no JVD Resp Effort & Inspection: normal respiratory effort Auscultation: clear to auscultation bilaterally, no crackles, no rales, no rhonchi and no wheezes Cardio Jugular venous distension: no JVD Rate: regular rate Rhythm: regular rhythm Heart sounds: S1 normal heart sound present, S2 normal heart sound present, no murmurs and no rubs Neuro General: patient oriented x3 Extrem General: Yes normal to inspection and No no pedal edema Psych Appearance: grossly normal Mental Status: mental status grossly normal Speech and movement: Normal speech and movement present Office Procedures Cardiac Device Check Cardiac Device Check Details: Invisible Connectronik dual-chamber pacemaker interrogation today showing DDD to CLS mode, low rate 60 battery 45%, atrial threshold 0.6 volts at 0.5 milliseconds, ventricular threshold 0.7 volts at 0.4 milliseconds, brief episodes of SVT noted , lasting 2-6 seconds, asymptomatic, atrial pacing 96%, ventricular pacing 1% 76713-HT Cardiac Device Check, pacemaker dual lead Procedure code (CPT) selection complete Assessment & Plan Assessment & Plan (1) Aortic stenosis: Code(s): I35.0 - Nonrheumatic aortic (valve) stenosis Category: Medical Plan: History of aortic stenosis. Last echocardiogram done 05/21/2023 showing EF 62%, severe septal asymmetric hypertrophy, ismu-xl-[id number] aortic stenosis with mean gradient 19 mmHg, aortic valve area 1.22 centimeter sq, no aortic valve regurgitation. This degree of stenosis is not likely to give her symptoms. She does have some mild shortness of breath which can be related to COPD and smoking. She has no chest discomfort or lightheadedness. Cardinal signs of severe reviewed with her. Will plan for a repeat echocardiogram 1 year from the last, due May 2024. (2) SOB (shortness of breath) on exertion: Code(s): R06.02 - Shortness of breath Category: Medical Plan: As above. This symptom is not likely to be cardiac related. (3) Smoking greater than 30 pack years: Code(s): F17.210 - Nicotine dependence, cigarettes, uncomplicated Category: Social Hx Plan: Continues to smoke 5 cigarettes per day. Is working on gradual reduction and eventual cessation (4) Hypertension: Code(s): I10 - Essential (primary) hypertension Category: Medical Qualifiers: Hypertension type: primary hypertension Qualified Code(s): I10 - Essential (primary) hypertension Plan: History of hypertension. Blood pressure elevated on last visit and lisinopril 2.5 mg daily was added. Patient had been reluctant as she reports having hyp otension with lisinopril in the past. At this time her blood pressure is mildly elevated again at 154/62. Discuss increase in lisinopril up to 5 mg daily and she declines. She does admit to having salt in her diet can definitely work on salt reduction to help improve her blood pressure. Reviewed the importance of good blood pressure control with her. With her echo finding of severe septal asymmetric hypertrophy blood pressure control is essential. She says she follows with her PCP every 3 months. Her blood pressure can be followed. If it remains elevated in spite of salt reduction I would recommend increasing lisinopril up to 5 mg daily. (5) Cardiac pacemaker in situ: Comment: Biotronik dual-chamber pacemaker in place, placed in 2015 Code(s): Z95.0 - Presence of cardiac pacemaker Category: Medical Plan: Biotronik dual-chamber pacemaker in place. Functioning normally on interrogation today. Remote monitoring in use. Next office interrogation due in 6 months (6) Peripheral vascular disease: Code(s): I73.9 - Peripheral vascular disease, unspecified Category: Medical Plan: Reported history of peripheral vascular disease. She says she has plaque buildup in her leg arteries but did not require stents when evaluated in [place] prior to moving back here in 2021. At this time she denies any leg pain or claudication. On exam her lower legs have normal appearance, no edema. She also describes having stents in each carotid artery. She has not had any neurological changes to report. Will obtain an ultrasound of her carotid arteries for evaluation. She continues on Plavix and cilostazol. She tells me these have been ordered by her PCP since coming from [place]. She is on atorvastatin 80 mg daily. Recommend ideal LDL goal less than 70. Plan Time spent on chart review, documentation, interview and assessment Orders: Orders US carotid duplex BI Today E78.5 - Hyperlipidemia, unspecified, I73.9 - Peripheral vascular disease, unspecified Coding Level of Care Code Est Pt Level 4 (56001) Diagnoses Aortic stenosis I35.0 SOB (shortness of breath) on exertion R06.02 Smoking greater than 30 pack years F17.210 Primary hypertension I10 Hypertension type: primary hypertension Cardiac pacemaker in situ Z95.0 Peripheral vascular disease I73.9 CPT Codes Cardiac Device Check - Cardiac Device 2: 19376-KG Cardiac Device Check, pacemaker dual lead ([id number])
== END 2023-10-27 13:28 | disposition home or self-care (01) ==
PROVIDERS: PCP Nurse Practitioner Family; Visit Provider Nurse Practitioner Family
DX: I35.0 Nonrheumatic aortic (valve) stenosis (principal); R06.02 Shortness of breath; F17.210 Nicotine dependence, cigarettes, uncomplicated; I10 Essential (primary) hypertension; Z95.0 Presence of cardiac pacemaker; I73.9 Peripheral vascular disease, unspecified
CPT/HCPCS: 93280; 99214

== ENCOUNTER → 2023-10-27 12:20 | Outpatient (BNVA) | payer MEDICARE, SELFPAY | PROVIDERS: PCP Nurse Practitioner Family; Visit Provider Nurse Practitioner Family | DX: I35.0 Nonrheumatic aortic (valve) stenosis (principal); I10 Essential (primary) hypertension; R06.02 Shortness of breath; I73.9 Peripheral vascular disease, unspecified; F17.210 Nicotine dependence, cigarettes, uncomplicated; Z45.018 Encounter for adjustment and management of other part of cardiac pacemaker; Z79.02 Long term (current) use of antithrombotics/antiplatelets; Z79.899 Other long term (current) drug therapy | CPT/HCPCS: 93280; 99212 ==

== ENCOUNTER 2023-11-03 16:37 | Outpatient (AMB) | payer MEDICARE, SELFPAY ==
--- NOTE | 2023-11-03 16:45 | MHC.PC.OV ---
Vital Signs 11/03/23 16:46 11/03/23 17:10 Height 5 ft 4 in Weight 130 lb 2 oz BMI 22.3 BP 138/64 Blood Pressure Location Lt brachial Position Sitting Respiration 32 H 20 Pulse 88 Pulse Source Pulse Oximeter Pulse Oximetry (%) 97 Oxygen Delivery Method Room Air Intake Visit Reasons: anxiety depression fu Intake Note: Follow up Allergies acetaminophen [From Percocet] Allergy (Intermediate, Verified 11/03/23 16:59) Itching oxycodone [From Percocet] Allergy (Intermediate, Verified 11/03/23 16:59) Itching Seasonal Allergies Allergy (Intermediate, Verified 11/03/23 16:59) Itchy Eyes ibuprofen [From Motrin] Allergy (Unknown, Verified 11/03/23 16:59) Swelling moltrin Allergy (Severe, Uncoded 11/03/23 16:59) Swelling Medication List - Last Reconciled 11/03/23 by Jaylen Taylor CNP acetaminophen ER (Tylenol 8 Hour) 650 mg PO Q8H PRN amlodipine 10 mg PO DAILY atorvastatin 80 mg PO BEDTIME 30 days kkbctrrzfm-hiwvwsxw-fhztdowjsh 160-9-4.8 mcg/actuation (Breztri Aerosphere) 2 inhalations inhalation BID buspirone 7.5 mg PO BID 30 days cetirizine (Zyrtec) 10 mg PO DAILY 30 days cilostazol 100 mg PO BID 30 days clopidogrel 75 mg PO DAILY 30 days ferrous sulfate 325 mg PO QAM folic acid 0.4 mg PO DAILY 30 days gabapentin 400 mg PO TID levothyroxine 137 mcg PO DAILY 30 days lisinopril 2.5 mg PO QPM pramipexole 0.25 mg (2 x 0.125 mg) PO DAILY 30 days psyllium husk (Metamucil) 1 tbsp PO DAILY sertraline 100 mg PO BID Tobacco use date assessed: 07/14/23 Dental Screening Dental Screen Date: 07/14/23 HPI HPI Comments History of Present Illness Details 78-year-old female presents for anxiety and depression follow-up She admits to taking her medications as prescribed without adverse reactions She reports intermittent productive cough with green phlegm for the past 1 week. She became sick following an URI by her son. She reports associated fatigue and generalized body aches. She has been lying in bed for the past 1 week. She woke up soak and wet a few nights ago. She notes that she did not go to the ED because she could not afford the care. No chest pain, fever, chills. She reports worsened anxiety and depression with she attributes to her current acute symptoms. She has passive SI but denies active SI or HI She smokes 2 cigarettes daily COUNTS INCLUDE 234 BEDS AT THE [facility] Medical History Cardiac pacemaker in situ Aortic stenosis Restless leg syndrome No pertinent family history Hyperlipidemia Chronic back pain Osteoarthritis GERD (gastroesophageal reflux disease) Anxiety and depression Type 2 diabetes mellitus Hypertension CKD (chronic kidney disease) stage 3, GFR 30-59 ml/min Hypothyroidism Cataracts, bilateral COPD (chronic obstructive pulmonary disease) Deafness in right ear Stroke Surgical History History of esophagogastroduodenoscopy (EGD) H/O colonoscopy History of tonsillectomy History of appendectomy H/O: hysterectomy History of back surgery H/O thyroidectomy H/O endarterectomy S/P cardiac pacemaker procedure Family History Mother Bladder cancer Brother Bladder cancer Social History Housing: House Patient Tobacco Use Status: Current everyday Tobacco user Tobacco use type: Cigarette Cigarette Packs Per Day: 0.25 Cigarettes Per Day: 5 Years Smoked: 70 e-Cigarette/Vaping Use: Never Used Substance Use Type: Marijuana service: No Current occupational status: retired Cognitive needs: No Hearing needs: No Vision needs: No Questionnaire PHQ-9 Over the last 2 weeks, how often have you been bothered by any of the following problems? 1. Little interest or pleasure in doing things: nearly every day 2. Feeling down, depressed, or hopeless: nearly every day 3. Trouble falling or staying asleep, or sleeping too much: nearly every day 4. Feeling tired or having little energy: nearly every day 5. Poor appetite or overeating: nearly every day 6. Feeling bad about yourself - or that you are a failure or have let yourself or your family down: several days 7. Trouble concentrating on things, such as reading the newspaper or watching television: several days 8. Moving or speaking so slowly that other people could have noticed. Or the opposite - being so fidgety or restless that you have been moving around a lot more than usual: several days 9. Thoughts that you would be better off or of hurting yourself in some way: more than half the days Total score: 20 Depression Screening Interpretation: Positive Depression Screening Follow-up: Existing condition and In treatment Depression Screening Done: Yes 54416 - PHQ-9 Billing: Yes Source: Developed by Drs. Bonifacio Bethea, Danni Villa, Rico Wilcox and colleagues, with an educational saranya from [employer]. Thrive Questionnaire Date Thrive assessed: 12/20/22 MARECLA-7 AMB Questionnaire MARCELA-7 Date MARCELA - 7 assessed: 10/13/23 Feeling nervous, anxious, or on edge: 3 = Nearly every day Not being able to stop or control worryin = Not at all Worrying too much about different things: 0 = Not at all Trouble relaxin = Nearly every day Being so restless that it is hard to sit still: 2 = More than half the days Becoming easily annoyed or irritable: 2 = More than half the days Feeling afraid as if something awful might happen: 0 = Not at all Total MARCELA-7 score (0-4 normal; 5-9 mild; 10-14 moderate; 15-21 severe): 10 Source: Developed by Drs. Bonifacio Bethea, Danni Villa, Rico Wilcox and colleagues, with an educational saranya from [employer]. MARCELA-7 Assessment Billing MARCELA-7 Assessment Tool: MARCELA-7 Assessment 96691 Review of Systems Const Details: Const Denies chills, Reports fatigue, Denies fever(s), Denies headache(s) and Reports weakness ENT Reports as per HPI Card Denies chest pain, Denies lightheadedness, Denies dyspnea and Denies other (Palpitations) Resp Reports cough, Denies dyspnea, Denies wheezing and Denies other ( shortness of breath) GI Denies abdominal pain, Denies melena, Denies hematochezia, Denies change in bowel habits, Denies dyspepsia and Denies nausea Denies hematuria and Denies dysuria Musc Denies abnormal gait, reports generalized aches, Denies numbness and Denies tingling Skin/Breast Denies rash, Denies unusual bruising and Denies wounds Neuro Denies abnormal gait, Denies dizziness, Denies headache(s), Denies memory loss, Denies numbness, Denies Sensory deficit (Neuro), Denies tingling and Reports weakness Psych Reports anxiety, Reports depression, Denies memory loss Endo Denies cold intolerance, Denies fatigue, Denies heat intolerance, Denies polydipsia and Denies polyuria Aller/Immun Denies wheezing Physical exam (Primary Care) Vital Signs: Last Vital Signs Pulse 88 11/03/23 16:46 Resp 32 H 11/03/23 16:46 BP 138/64 11/03/23 16:46 Pulse Ox 97 11/03/23 16:46 Oxygen Delivery Method Room Air 11/03/23 16:46 BMI result Body Mass Index 22.3 Tobacco/Smoking Status: Tobacco use Status Tobacco use date assessed 07/14/23 11/03/23 16:51 Patient Tobacco Use Status Current everyday Tobacco 11/03/23 16:51 Tobacco use type Cigarette 11/03/23 16:51 e-Cigarette/Vaping Use Never Used 11/03/23 16:51 PHQ-9: PHQ-9 Score PHQ-9: Total score 20 11/03/23 16:51 Depression Screening Interpretation: Positive Depression Screening Follow-up: Existing condition and In treatment Thrive Assessment: Date of Thrive Assessment Date Thrive assessed 12/20/22 11/03/23 16:51 Const Other: General: no acute distress and well developed Nutritional Appearance: well nourished Orientation/consciousness: patient oriented x3 HENMT Head is normocephalic Bilateral ear canal and TM are normal Nasal turbinates are pink and moist Oropharynx pink and dry Sinuses are nontender with palpation No auricular or cervical lymphadenopathy Eyes General: appearance normal, both eyes and all related structures Pupils: Equal, round and reactive pupils present EOM: EOMs intact bilaterally Resp Effort & Inspection: normal respiratory effort Auscultation: clear to auscultation bilaterally Cardio Rate: regular rate Rhythm: regular rhythm Heart sounds: S1 normal heart sound present, S2 normal heart sound present, no gallops, murmurs present and no rubs GI Palpation (GI): No Abdominal aortic bruit present, Soft to palpation, nontender, No hepatosplenomegaly present and No Rebound tenderness present Auscultation: normal bowel sounds General: Yes no CVA tenderness Back/Spine/Pelvis Back: no CVA tenderness Cervical Spine: cervical ROM normal and No Cervical spine tenderness Thoracic/Lumbar Spine: thoraco-lumbar ROM normal, No pain with thoraco-lumbar ROM, No thoracic spinal tenderness and No lumbar spinal tenderness Extrem General: Yes normal to inspection, No edema and No calf tenderness Skin General: warm and dry. Normal skin color. Normal skin turgor Neuro General: patient oriented x3, gait normal and no focal neuro deficit Cranial nerves: Yes Equal, round and reactive pupils present Cognition (Neuro): normal cognition Gait exam (Neuro): Normal gait present Sensory Exam: No Sensory deficit (Neuro) Psych Appearance: grossly normal Affect: normal affect Attitude: cooperative Thought process: Normal thought process present Assessment and Plan Assessment & Plan (1) Anxiety and depression: Code(s): F41.9 - Anxiety disorder, unspecified; F32.A - Depression, unspecified Plan: Reports increased anxiety and depression symptoms which she attributes to her current illness PHQ-9 and MARCELA-7 scores revealed severe depression and moderate anxiety respectively Continue current treatment regimen Will treat her current illness and her anxiety and depression symptoms may improve as a current symptoms improve Follow-up in 2 weeks or sooner with worsening or new symptoms Verbalized understanding and agreed with treatment plan (2) Viral upper respiratory illness: Code(s): J06.9 - Acute upper respiratory infection, unspecified Plan: Likely viral illness though possibly allergies. Likely superimposed bacterial infection Viral illness There is no antibiotic medication for viruses.? They must run their course.? Most average 5-7 days but 7-10 days is not uncommon and up to 14 days is still possible.? A cough is often the last symptom to resolve and this can last for weeks in some cases. Rest Hydrate well -? Drink plenty of fluids.? Especially water. Tylenol or ibuprofen for muscle aches, headache, fever/discomfort Z-Levar and benzonatate as prescribed Chest x-ray ordered. Advised to get x-ray done as soon as possible Instructed on the health risks and complications of cigarette smoking. Smoking cessation encouraged Cannot rule out COVID-19/RSV/Flu infection Nasal swab acquired and will be sent to the lab Return for new or worsening symptoms or go to the emergency room Verbalized understanding and agreed with treatment plan Orders: Orders SARS-CoV2/FLU/RSV Today J06.9 - Acute upper respiratory infection, unspecified XR chest 2V Today J06.9 - Acute upper respiratory infection, unspecified Medications: New azithromycin (Zithromax Z-Levar) For 250 mg dose pack: take 500 mg today (day 1), then 250 mg for 4 days (days 2-5) PO 6 tabs 0RF benzonatate 200 mg PO BID PRN 20 caps 0RF cough Coding Level of Care Code Est Pt Level 4 (16188) Complex EM visit Add On G2211 Diagnoses Anxiety and depression F41.9; F32.A Viral upper respiratory illness J06.9 Additional Codes MARCELA-7 Assessment Billing - MARCELA-7 Assessment Tool: MARCELA-7 Assessment 56530 ([id number])
[2023-11-03 16:46] VITALS: BP 138/64; PULSE 88; RESP 32; O2SAT 97; BMI 22.3
[2023-11-03 17:10] VITALS: RESP 20
== END 2023-11-03 17:26 | disposition home or self-care (01) ==
PROVIDERS: PCP Nurse Practitioner Family; Visit Provider Nurse Practitioner Family
DX: F41.9 Anxiety disorder, unspecified (principal); F32.A Depression, unspecified; J06.9 Acute upper respiratory infection, unspecified
CPT/HCPCS: 99214; G2211

== ENCOUNTER 2023-11-03 17:24 | Outpatient (REF) | payer MEDICARE, SELFPAY ==
[2023-11-04 12:28] LABS: Influenza A PCR POSITIVE (Negative); Influenza B PCR NEGATIVE (Negative); Resp Syncy Virus RNA Qual PCR NEGATIVE (Negative); SARS COV2 PCR INHOUSE NEGATIVE (Negative)
== END 2023-11-03 17:25 | disposition home or self-care (01) ==
LOC: HO.LAB 17:24
PROVIDERS: Visit Provider Nurse Practitioner Family
DX: J06.9 Acute upper respiratory infection, unspecified (principal)
CPT/HCPCS: 0241U

== ENCOUNTER 2023-11-17 11:11 | Outpatient (REF) | payer MEDICARE, SELFPAY ==
--- NOTE | ~2023-11-17 | US_ITS ---
EXAMINATION: US EXTRACRANIAL CAROTID DUPLEX, BILATERAL CLINICAL INFORMATION: bilateral carotid stents COMPARISON: None available. TECHNIQUE: Real-time ultrasound and Doppler techniques (integrating B-mode 2-D vascular images, Doppler spectral analysis and color-flow Doppler imaging) were utilized to interrogate the extracranial carotid arteries, the vertebral arteries and proximal subclavian arteries bilaterally. The degree of stenosis is determined by criteria similar to NASCET. FINDINGS: Right Side: 1. There is mild atherosclerotic plaque seen in the bifurcation/proximal ICA region. Distal common carotid artery to proximal internal carotid artery stent in place. 2. The common carotid artery PSV proximally is 106 cm/s and distally 103 cm/s. 3. The proximal internal carotid artery velocities are 107 cm/s systolic and 22.5 cm/s diastolic. 4. The proximal external carotid artery PSV is 198 cm/s. 5. The vertebral artery shows antegrade flow. 6. The subclavian artery waveforms are normal. Left Side: 1. There is mild atherosclerotic plaque seen in the bifurcation/proximal ICA region. Distal common carotid artery to proximal internal carotid artery stent in place. 2. The common carotid artery PSV proximally is 89.7 cm/s and distally 94.4 cm/s. 3. The proximal internal carotid artery velocities are 103 cm/s systolic and 22.3 cm/s diastolic. 4. The proximal external carotid artery PSV is 281 cm/s. 5. The vertebral artery shows antegrade flow. 6. The subclavian artery waveforms are normal. US/US carotid duplex BI IMPRESSION: Bilateral distal common carotid artery to proximal internal carotid artery stents are patent. 1. RIGHT: Minimal, non-hemodynamically significant stenosis of the proximal right internal carotid artery corresponding to a 0-49% stenosis by velocity criteria. 2. LEFT: Minimal, non-hemodynamically significant stenosis of the proximal left internal carotid artery corresponding to a 0-49% stenosis by velocity criteria.
== END 2023-11-17 11:12 | disposition home or self-care (01) ==
LOC: HO.US 11:11
PROVIDERS: PCP Nurse Practitioner Family; Visit Provider Nurse Practitioner Family
DX: I73.9 Peripheral vascular disease, unspecified (principal); I65.23 Occlusion and stenosis of bilateral carotid arteries; E78.5 Hyperlipidemia, unspecified
CPT/HCPCS: 93880

== ENCOUNTER 2023-11-18 11:00 | Outpatient (AMB) | payer MEDICARE, SELFPAY ==
--- NOTE | 2023-11-18 11:02 | A.OFFPC_ITS ---
Vital Signs 11/18/23 11:11 11/18/23 11:50 Height 5 ft 4 in Weight 128 lb 8 oz BMI 22.1 BP 90/53 L 80/50 L Blood Pressure Location Rt brachial Lt brachial Position Sitting Sitting Respiration 12 Pulse 57 80 Pulse Source Pulse Oximeter Auscultation Temp 97.5 F Temp Source Temporal Artery Scan Pulse Oximetry (%) 99 Oxygen Delivery Method Room Air Intake Visit Reasons: 2 wks anxiety, depression Intake Note: patient here to follow up on anxiety and depression. Fur Puller Required: No Is last menstrual period known: No Post menopausal: No Patient : No Allergies acetaminophen [From Percocet] Allergy (Intermediate, Verified 11/18/23 11:40) Itching oxycodone [From Percocet] Allergy (Intermediate, Verified 11/18/23 11:40) Itching Seasonal Allergies Allergy (Intermediate, Verified 11/18/23 11:40) Itchy Eyes ibuprofen [From Motrin] Allergy (Unknown, Verified 11/18/23 11:40) Swelling moltrin Allergy (Severe, Uncoded 11/18/23 11:40) Swelling Medication List - Last Reconciled 11/18/23 by Jaylen Taylor CNP acetaminophen ER (Tylenol 8 Hour) 650 mg PO Q8H PRN amlodipine 10 mg PO DAILY atorvastatin 80 mg PO BEDTIME 30 days benzonatate 200 mg PO BID PRN ooctpvfqug-wdwhrmej-csjxmodsxj 160-9-4.8 mcg/actuation (Breztri Aerosphere) 2 inhalations inhalation BID buspirone 7.5 mg PO BID 30 days cetirizine (Zyrtec) 10 mg PO DAILY 30 days cilostazol 100 mg PO BID 30 days clopidogrel 75 mg PO DAILY 30 days ferrous sulfate 325 mg PO QAM folic acid 0.4 mg PO DAILY 30 days gabapentin 400 mg PO TID levothyroxine 137 mcg PO DAILY 30 days lisinopril 2.5 mg PO QPM oseltamivir (Tamiflu) 75 mg PO BID 5 days pramipexole 0.25 mg (2 x 0.125 mg) PO DAILY 30 days psyllium husk (Metamucil) 1 tbsp PO DAILY sertraline 100 mg PO BID Tobacco use date assessed: 07/14/23 Fall risk assessment: No Falls in past year Last assessed Fall Risk: 11/18/23 Dental Screening Dental Screen Date: 11/18/23 Did you have a dental visit in the last 12 months?: No Did you have a dental problem in the last 6 months where you did not have access to dental care?: No HPI HPI Comments History of Present Illness Details 78-year-old female presents for anxiety and depression follow-up She admits to taking her medications as prescribed without adverse reactions She notes controlled anxiety and depressive symptoms on current treatment regimen She reports adequate sleep She also reports constant dizziness and fatigue for the past 4 days. She notes that i feel strange inside my head. Inside of me is all shaky. She admits to adequate hydration. She states that she has been taking her medications, including antihypertensives as prescribed. She denies chest pain, dyspnea, or constitutional symptoms She admits to history of heart murmur. She has history of aortic stenosis. She has a pacemaker She is followed by [facility] cardiology She was treated for the flu about 2 weeks ago [facility] Medical History Cardiac pacemaker in situ Aortic stenosis Restless leg syndrome No pertinent family history Hyperlipidemia Chronic back pain Osteoarthritis GERD (gastroesophageal reflux disease) Anxiety and depression Type 2 diabetes mellitus Hypertension CKD (chronic kidney disease) stage 3, GFR 30-59 ml/min Hypothyroidism Cataracts, bilateral COPD (chronic obstructive pulmonary disease) Deafness in right ear Stroke Surgical History History of esophagogastroduodenoscopy (EGD) H/O colonoscopy History of tonsillectomy History of appendectomy H/O: hysterectomy History of back surgery H/O thyroidectomy H/O endarterectomy S/P cardiac pacemaker procedure Family History Mother Bladder cancer Brother Bladder cancer Social History Housing: House Patient Tobacco Use Status: Current everyday Tobacco user Tobacco use type: Cigarette Cigarette Packs Per Day: 0.25 Cigarettes Per Day: 5 Years Smoked: 70 e-Cigarette/Vaping Use: Never Used Substance Use Type: Marijuana service: No Current occupational status: retired Cognitive needs: No Hearing needs: No Vision needs: No Questionnaire PHQ-9 Over the last 2 weeks, how often have you been bothered by any of the following problems? 1. Little interest or pleasure in doing things: several days 2. Feeling down, depressed, or hopeless: several days 3. Trouble falling or staying asleep, or sleeping too much: several days 4. Feeling tired or having little energy: nearly every day 5. Poor appetite or overeating: several days 6. Feeling bad about yourself - or that you are a failure or have let yourself or your family down: not at all 7. Trouble concentrating on things, such as reading the newspaper or watching television: several days 8. Moving or speaking so slowly that other people could have noticed. Or the opposite - being so fidgety or restless that you have been moving around a lot more than usual: not at all 9. Thoughts that you would be better off or of hurting yourself in some way: not at all Total score: 8 Depression Screening Interpretation: Positive Depression Screening Follow-up: Existing condition and In treatment Depression Screening Done: Yes 32423 - PHQ-9 Billing: Yes Source: Developed by Drs. Bonifacio Bethea, Danni Villa, Rico Wilcox and colleagues, with an educational saranya from [employer]. Thrive Questionnaire Date Thrive assessed: 12/20/22 AUDIT C Alcohol Use Questionnaire (AUDIT-C) 1. How often do you have a drink containing alcohol?: Never Total Score: 0 MARCELA-7 AMB Questionnaire MARCELA-7 Date MARCELA - 7 assessed: 11/18/23 Feeling nervous, anxious, or on edge: 1 = Several days Not being able to stop or control worryin = Not at all Worrying too much about different things: 0 = Not at all Trouble relaxin = More than half the days Being so restless that it is hard to sit still: 1 = Several days Becoming easily annoyed or irritable: 1 = Several days Feeling afraid as if something awful might happen: 0 = Not at all Total MARCELA-7 score (0-4 normal; 5-9 mild; 10-14 moderate; 15-21 severe): 5 Source: Developed by Drs. Bonifacio Bethea, Danni Villa, Rico Wilcox and colleagues, with an educational saranya from [employer]. MARCELA-7 Assessment Billing MARCELA-7 Assessment Tool: MARCELA-7 Assessment 86213 Review of Systems Const Details: Const Denies chills, Reports fatigue, Denies fever(s), Denies headache(s) and Denies weakness ENT Reports dizziness and Denies headache(s) Card Denies chest pain, Denies lightheadedness, Denies dyspnea and Denies other (Pal pitations) Resp Denies cough, Denies dyspnea, Denies wheezing and Denies other ( shortness of breath) GI Denies abdominal pain, Denies melena, Denies hematochezia, Denies change in bowel habits, Denies dyspepsia and Denies nausea Denies hematuria and Denies dysuria Musc Denies abnormal gait, Denies myalgias, Denies arthralgias, Denies numbness and Denies tingling Skin/Breast Denies rash, Denies unusual bruising and Denies wounds Neuro Denies abnormal gait, Denies dizziness, Denies headache(s), Denies memory loss, Denies numbness, Denies Sensory deficit (Neuro), Denies tingling and Denies weakness Psych Denies anxiety, Denies depression, Denies memory loss Endo Denies cold intolerance, reports fatigue, Denies heat intolerance, Denies polydipsia and Denies polyuria Aller/Immun Denies wheezing Physical exam (Primary Care) Vital Signs: Last Vital Signs Temp 97.5 F 11/18/23 11:11 Pulse 57 11/18/23 11:11 Resp 12 11/18/23 11:11 BP 90/53 L 11/18/23 11:11 Pulse Ox 99 11/18/23 11:11 Oxygen Delivery Method Room Air 11/18/23 11:11 BMI result Body Mass Index 22.1 Tobacco/Smoking Status: Tobacco use Status Tobacco use date assessed 07/14/23 11/18/23 11:11 Patient Tobacco Use Status Current everyday Tobacco 11/18/23 11:11 Tobacco use type Cigarette 11/18/23 11:11 e-Cigarette/Vaping Use Never Used 11/18/23 11:11 PHQ-9: PHQ-9 Score PHQ-9: Total score 8 11/18/23 11:21 Depression Screening Interpretation: Positive Depression Screening Follow-up: Existing condition and In treatment Thrive Assessment: Date of Thrive Assessment Date Thrive assessed 12/20/22 11/18/23 11:11 Const Other: General: no acute distress and well developed Nutritional Appearance: well nourished Orientation/consciousness: patient oriented x3 [facility] Head: Yes normocephalic and Yes atraumatic Eyes General: appearance normal, both eyes and all related structures Pupils: Equal, round and reactive pupils present EOM: EOMs intact bilaterally Resp Effort & Inspection: normal respiratory effort Auscultation: clear to auscultation bilaterally Cardio Rate: regular rate Rhythm: regular rhythm Heart sounds: S1 normal heart sound present, S2 normal heart sound present, no gallops, murmurs and no rubs GI Palpation (GI): No Abdominal aortic bruit present, Soft to palpation, nontender, No hepatosplenomegaly present and No Rebound tenderness present Auscultation: normal bowel sounds General: Yes no CVA tenderness Back/Spine/Pelvis Back: no CVA tenderness Cervical Spine: cervical ROM normal and No Cervical spine tenderness Thoracic/Lumbar Spine: thoraco-lumbar ROM normal, No pain with thoraco-lumbar ROM, No thoracic spinal tenderness and No lumbar spinal tenderness Extrem General: Yes normal to inspection, No edema and No calf tenderness Skin General: warm and dry. Normal skin color. Normal skin turgor. Mucous membranes pink and moist Neuro General: patient oriented x3, gait normal and no focal neuro deficit Cranial nerves: Yes Equal, round and reactive pupils present Cognition (Neuro): normal cognition Gait exam (Neuro): Normal gait present Sensory Exam: No Sensory deficit (Neuro) Psych Appearance: grossly normal Affect: normal affect Attitude: cooperative Thought process: Normal thought process present Office Procedures EKG Details: EKG revealed sinus rhythm with premature supraventricular complexes, left axis deviation, and left ventricular hypertrophy. There is likely slight ST depression in leads V4 and V5 [id number], Complete Assessment and Plan Assessment & Plan (1) Anxiety and depression: Code(s): F41.9 - Anxiety disorder, unspecified; F32.A - Depression, unspecified Plan: Controlled anxiety and depressive symptoms PHQ-9 and MARCELA-7 scores revealed mild depression and anxiety Continue current treatment regimen Routine exercise encouraged Follow-up with worsening or new symptoms Verbalized understanding and agreed with treatment plan (2) Hypotension: Code(s): I95.9 - Hypotension, unspecified Plan: Constant dizziness and fatigue for the past 4 days. Admits to taking her antihypertensives as prescribed and adequate hydration Resting blood pressure is 80/50, heart rate is 80 EKG revealed sinus rhythm with premature supraventricular complexes, left axis deviation, and left ventricular hypertrophy. 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 She may also go to the emergency room with worsening symptoms She verbalized understanding and agreed with the treatment plan (3) Dizziness: Code(s): R42 - Dizziness and giddiness Plan: As above (4) Fatigue: Code(s): R53.83 - Other fatigue Plan: As above Orders: Orders Complete Blood Count no Diff Today D64.9 - Anemia, unspecified, R53.83 - Other fatigue B Type Natriuretic Peptide Today I95.9 - Hypotension, unspecified, R42 - Dizziness and giddiness, R53.83 - Other fatigue Troponin-I High Sensitivity Today I95.9 - Hypotension, unspecified, R42 - Dizziness and giddiness, R53.83 - Other fatigue Basic Metabolic Panel Today I95.9 - Hypotension, unspecified, R42 - Dizziness and giddiness, R53.83 - Other fatigue AMB EKG-In Office Today I95.9 - Hypotension, unspecified, R42 - Dizziness and giddiness, R53.83 - Other fatigue Referrals Cardiology Referral I95.9 - Hypotension, unspecified, R42 - Dizziness and giddiness, R53.83 - Other fatigue Medications: On Hold lisinopril Hold Comment: Doctor's Order 2.5 mg PO QPM 90 tabs 1RF I35.0 - Nonrheumatic aortic (valve) stenosis Coding Level of Care Code Est Pt Level 4 (18523) Complex EM visit Add On G2211 Diagnoses Anxiety and depression F41.9; F32.A Hypotension I95.9 Dizziness R42 Fatigue R53.83 CPT Codes EKG - CPT: 29159-[id number], Complete ([id number]) Additional Codes MARCELA-7 Assessment Billing - MARCELA-7 Assessment Tool: MARCELA-7 Assessment 43198 ([id number])
[2023-11-18 11:11] VITALS: BP 90/53; PULSE 57; RESP 12; TEMP 36.4; O2SAT 99; BMI 22.1
[2023-11-18 11:50] VITALS: BP 80/50; PULSE 80
== END 2023-11-18 12:45 | disposition home or self-care (01) ==
PROVIDERS: PCP Nurse Practitioner Family; Visit Provider Nurse Practitioner Family
DX: I95.9 Hypotension, unspecified (principal); F41.9 Anxiety disorder, unspecified; F32.A Depression, unspecified; R42 Dizziness and giddiness; R53.83 Other fatigue
CPT/HCPCS: 93000; 99214; G2211

== ENCOUNTER 2023-11-18 13:16 | Outpatient (REF) | payer MEDICARE, SELFPAY ==
[2023-11-18 17:42] LABS: Hematocrit 36.9 % (37.0-47.0); Hemoglobin 12.3 g/dl (12.0-16.0); Immature Retic Fraction 11.2 % (3.0-15.9); Mean Corpuscular HGB Conc 33.3 g/dl (31.0-35.0); Mean Corpuscular Hemoglobin 30.5 pg (27.0-33.0); Mean Corpuscular Volume 91.6 fL (80.0-98.0); Mean Platelet Volume 9.4 fL (9.4-12.3); Platelet Count 413 X10*3/uL (160-400); Red Blood Count 4.03 X10*6/uL (4.20-5.50); Retic HGB Equivalent 35.1 pg (30.0-35.0); Reticulocyte Percent 1.9 % (0.5-1.8); Reticulocytes Absolute 0.076 X10*6/uL (0.026-0.095)
[2023-11-18 17:50] LABS: Troponin-I High Sensitivity 21.3 ng/L (<3.5-17.0)
[2023-11-18 17:53] LABS: Anion Gap 16 (12-20); Blood Urea Nitrogen 28 mg/dL (9-16); Calcium 10.4 mg/dL (8.4-10.2); Carbon Dioxide 28 mmol/L (22-29); Chloride 100 mmol/L (96-108); Estimated Glomerular Filt Rate 18; Glucose Random 137 mg/dL (60-115); Iron 54 mcg/dL (30-160); Percent Iron Saturation 16 % (15-50); Potassium 3.1 mmol/L (3.3-5.1); Sodium 141 mmol/L (135-145); Total Iron Binding Capacity 328 mcg/dL (228-428); Unsaturated Iron Binding 274 ug/dL
[2023-11-18 18:11] LABS: Ferritin 22 ng/mL (10-250)
== END 2023-11-18 13:17 | disposition home or self-care (01) ==
LOC: HO.WFDLDS 13:16
PROVIDERS: Visit Provider Nurse Practitioner Family
DX: Z13.89 Encounter for screening for other disorder (principal)
CPT/HCPCS: 36415; 80048; 82728; 83540; 84484; 85027; 85045

== ENCOUNTER 2023-11-18 21:31 | Inpatient (IN) | payer MEDICARE, SELFPAY ==
--- NOTE | 2023-11-18 | ECG_ITS ---
Test Reason : ELEVATED TROPONIN Blood Pressure : / mmHG Vent. Rate : 081 BPM Atrial Rate : 000 BPM P-R Int : 000 ms QRS Dur : 088 ms QT Int : 418 ms P-R-T Axes : 000 -38 132 degrees QTc Int : 485 ms Atrial fibrillation Left axis deviation Left ventricular hypertrophy with repolarization abnormality ( R in aVL , Joe product , Romhilt-Monae ) Cannot rule out Septal infarct , age undetermined Abnormal ECG No previous ECGs available Referred By: Generic ED Physician Electronically Signed By:CHIDI HEATH MD
--- NOTE | ~2023-11-18 | US_ITS ---
EXAMINATION: US RETROPERITONEAL LIMITED (RENAL ONLY) CLINICAL INFORMATION: Worsening renal function. COMPARISON: Abdominal ultrasound 05/27/2023. TECHNIQUE: Real-time imaging of the kidneys. FINDINGS: RIGHT KIDNEY: 9.3 x 3.2 x 5 cm (SAG x AP x TRV). Mildly increased cortical echogenicity. Renal cortical thickness is normal. No renal calculi or hydronephrosis. Simple appearing cysts measuring up to 1.5 cm, for which no imaging follow-up is recommended. LEFT KIDNEY: 9.7 x 5.3 x 5.3 cm (SAG x AP x TRV). Mildly increased cortical echogenicity. Renal cortical thickness is normal. No calculi or focal parenchymal lesions. No hydronephrosis. US/US renal BI IMPRESSION: 1. No nephrolithiasis or hydronephrosis. 2. Mildly increased cortical echogenicity suggesting underlying chronic renal disease. 3. Simple appearing cysts in the right kidney, for which no imaging follow-up is recommended.
--- NOTE | ~2023-11-18 | XR_ITS ---
EXAMINATION: XR CHEST CLINICAL INFORMATION: Weakness. COMPARISON: Chest radiograph 12/11/2021. TECHNIQUE: Frontal view of the chest was obtained. FINDINGS: Left-sided pacer with leads projecting over the right atrium and right ventricle. Stable appearance of the cardiomediastinal silhouette. Similar degree of slightly increased diffuse interstitial markings. No focal consolidation. No pleural effusion or pneumothorax. No acute osseous findings. Redemonstration of numerous surgical clips overlying the neck. XR/XR chest 1V IMPRESSION: No significant change compared to 12/11/2021.
[2023-11-18 21:41] VITALS: BP 99/54; PULSE 89; RESP 18; TEMP 36.8; O2SAT 95; BMI 21.5
[2023-11-18 22:01] LABS: MANUAL DIFF FLAG NO
[2023-11-18 22:02] LABS: Basophils Percent Auto 0.4 % (0-2); Eosinophils Absolute Auto 0.2 X10*3/uL (0.0-0.4); Eosinophils Percent Auto 1.6 % (0-4); Hematocrit 33.3 % (37.0-47.0); Hemoglobin 11.5 g/dl (12.0-16.0); Imm Gran Abs Auto 0.03 X10*3/uL (0.00-0.03); Imm Gran Pct Auto 0.3 % (0.0-0.4); Lymphocytes Absolute Auto 1.3 X10*3/uL (1.2-4.9); Lymphocytes Percent Auto 12.6 % (20-40); Mean Corpuscular HGB Conc 34.5 g/dl (31.0-35.0); Mean Corpuscular Hemoglobin 30.7 pg (27.0-33.0); Monocytes Absolute Auto 0.5 X10*3/uL (0.1-1.2); Monocytes Percent Auto 4.5 % (2-11); Neutrophils Absolute Auto 8.2 x10*3/uL (2.0-8.3); Neutrophils Percent Auto 80.6 % (45-73); Platelet Count 326 X10*3/uL (160-400); Red Blood Count 3.74 X10*6/uL (4.20-5.50); Red Cell Distribution Width 11.9 % (11.0-16.0); White Blood Count 10.1 X10*3/uL (4.8-10.8)
[2023-11-18 22:03] VITALS: BP 151/61; PULSE 76; RESP 16; TEMP 36.7; O2SAT 95
[2023-11-18 22:08] LABS: INTERNATIONAL NORM RATIO 1.1 (0.9-1.1); Prothrombin Time 13.1 SEC (11.1-13.3)
[2023-11-18 22:23] LABS: Alanine Aminotransferase 7 U/L (0-31); Albumin Level 3.9 g/dL (3.5-5.0); Alkaline Phosphatase 83 U/L (39-117); Anion Gap 18 (12-20); Aspartate Amino Transferase 10 U/L (5-31); Bilirubin Total 0.1 mg/dL (0.0-1.0); Blood Urea Nitrogen 36 mg/dL (9-16); Calcium 9.8 mg/dL (8.4-10.2); Carbon Dioxide 27 mmol/L (22-29); Chloride 98 mmol/L (96-108); Creatinine Clr Calc Pharmacy 11.8; Estimated Glomerular Filt Rate 13; Glucose Random 185 mg/dL (60-115); Potassium 2.9 mmol/L (3.3-5.1); Sodium 140 mmol/L (135-145); Total Protein 7.7 g/dL (6.5-8.0)
--- NOTE | 2023-11-18 22:24 | PC.NURSE ---
Jaz called for 2.9 K+ abnormal lab Dr Rosales notified. Plan of care ongoing.
--- NOTE | 2023-11-18 22:37 | PC.NURSE ---
Pt is ca&ox4, no signs of distress. Pt denies pain and reports was sent to ED by pcp d/t labs. Dr Rosales with pt. IV line placed. Pt getting an US. Plan of care ongoing.
[2023-11-18 22:44] LABS: Magnesium 1.6 mg/dL (1.6-2.6)
--- NOTE | 2023-11-18 22:44 | ED_ITS ---
HPI - Recheck/Abnormal Lab/Rx General Chief Complaint: Recheck/Abnormal Lab/Rx Stated Complaint: referred by pcp, concerning heart Time Seen by Provider: 11/18/23 22:23 Source: patient and old records reviewed Mode of arrival: ambulatory Limitations: no limitations History of Present Illness ED Provider: DOROTHY BEAL narrative: 78 yo female lifelong smoker but no longer, PVD, anemia, GERD, PPM, aortic stenosis, CKD baseline Cr 1.4 to 1.6, anxiety, depression, HTN, DM2, HLD, hypothyroidism, on aspirin and plavix but does not take any NSAIDs went to doctor for routine appointment today and had labs called tonight by PCP as her BP was slightly lower than usual in office so labs were drawn - trop was 21, k was 3.0 and her Cr was increased. She denies decreased oral intake, diarrhea, n/v. New diuretics or change in medications, urinary symptoms. She states she feels fine no CP/SOB. complaint: abnormal lab Initial visit (ago): day(s) (today) Initial visit for: other (states routine check) Returns today for: called because of abnormal lab/test Description of abnormal result: K 3.0 increased Cr from baseline 3.32 Symptoms since prior visit: no new symptoms Context: called for abnormal lab result Associated symptoms: none Related Data Home Medications ?Medication ?Instructions ?Recorded ?Confirmed amlodipine 10 mg tablet 10 mg PO DAILY 12/20/22 11/18/23 ferrous sulfate 325 mg (65 mg 325 mg PO QAM 12/20/22 11/18/23 iron) tablet gabapentin 400 mg capsule 400 mg PO TID 12/20/22 11/18/23 sertraline 100 mg tablet 100 mg PO BID 12/20/22 11/18/23 budesonide 160 mcg-glycopyr 9 2 inh inhalation BID 01/16/23 11/18/23 mcg-formot 4.8 mcg/actuation HFA inhaler (Breztri Aerosphere) Previous Rx's ?Medication ?Instructions ?Recorded psyllium husk 3.4 gram/5.4 gram 1 tbsp PO DAILY #660 grams 12/20/22 oral powder (Metamucil) acetaminophen 650 mg 650 mg PO Q8H PRN pain #60 tabs 07/14/23 tablet,extended release (Tylenol 8 Hour) cilostazol 100 mg tablet 100 mg PO BID 30 days #60 tabs 10/08/23 buspirone 7.5 mg tablet 7.5 mg PO BID 30 days #60 tabs 10/13/23 cetirizine 10 mg tablet (Zyrtec) 10 mg PO DAILY 30 days #30 tabs 10/13/23 levothyroxine 137 mcg tablet 137 mcg PO DAILY 30 days #30 tabs 10/16/23 atorvastatin 80 mg tablet 80 mg PO BEDTIME 30 days #30 tabs 10/17/23 folic acid 400 mcg tablet 0.4 mg PO DAILY 30 days #30 tabs 10/17/23 clopidogrel 75 mg tablet 75 mg PO DAILY 30 days #30 tabs 10/21/23 pramipexole 0.125 mg tablet 0.25 mg (2 x 0.125 mg) PO DAILY 30 10/24/23 days #60 tabs benzonatate 200 mg capsule 200 mg PO BID PRN cough #20 caps 11/03/23 oseltamivir 75 mg capsule (Tamiflu) 75 mg PO BID 5 days #10 caps 11/04/23 lisinopril 2.5 mg tablet 2.5 mg PO QPM #90 tabs 11/14/23 Allergies Allergy/AdvReac Type Severity Reaction Status Date / Time acetaminophen [From Percocet] Allergy Intermediate Itching Verified 11/18/23 21:48 oxycodone [From Percocet] Allergy Intermediate Itching Verified 11/18/23 21:48 Seasonal Allergies Allergy Intermediate Itchy Eyes Verified 11/18/23 21:48 ibuprofen [From Motrin] Allergy Unknown Swelling Verified 11/18/23 21:48 moltrin Allergy Severe Swelling Uncoded 11/18/23 11:40 Review of Systems 2 Review of Systems: Constitutional : No Fever, No Chills, No Fatigue ENT/Mouth : No sore throat, No Rhinorrhea Eyes: No Eye Pain, No Swelling, No Redness Cardiovascular : No Chest Pain, No SOB, No Dyspnea on Exertion Respiratory : pos Cough, No Sputum Gastrointestinal : No Nausea, No Vomiting, No Diarrhea, No abdominal Pain Genitourinary : No Dysuria, No Urinary Frequency, No Hematuria, Musculoskeletal : No joint pain, No Myalgias, No Joint Swelling Skin : No Skin Lesions, No rash Neuro : No Weakness, No Numbness, No Dizziness, no Headache Psych : No Anxiety/Panic, No Depression All other systems reviewed and are negative [facility] Past Medical History Attestation statement: The following information was validated with the patient. Source: old records reviewed Medical History Cardiac pacemaker in situ Aortic stenosis Restless leg syndrome No pertinent family history Hyperlipidemia Chronic back pain Osteoarthritis GERD (gastroesophageal reflux disease) Anxiety and depression Type 2 diabetes mellitus Hypertension CKD (chronic kidney disease) stage 3, GFR 30-59 ml/min Hypothyroidism Cataracts, bilateral COPD (chronic obstructive pulmonary disease) Deafness in right ear Stroke Surgical History History of esophagogastroduodenoscopy (EGD) H/O colonoscopy History of tonsillectomy History of appendectomy H/O: hysterectomy History of back surgery H/O thyroidectomy H/O endarterectomy S/P cardiac pacemaker procedure Family History Family History Mother Bladder cancer Brother Bladder cancer Social History Social History Housing: House Patient Tobacco Use Status: Current everyday Tobacco user Tobacco use type: Cigarette Cigarette Packs Per Day: 0.25 Cigarettes Per Day: 5 Years Smoked: 70 Smoked in Last 30 Days: Yes e-Cigarette/Vaping Use: Never Used Use of substances other than those prescribed or required for medical reasons: Yes Substance Use Type: Marijuana Advance Directives: No Advance Directives Information Provided: Yes Do you have a plan to hurt others: No Plan service: No Current occupational status: retired Cognitive needs: No Hearing needs: No Vision needs: No Physical Exam 2 Vital Signs: Vital Signs: Last Vital Signs Temp 98.1 F 11/18/23 22:03 Pulse 76 11/18/23 22:03 Resp 16 11/18/23 22:03 BP 151/61 H 11/18/23 22:03 Pulse Ox 95 11/18/23 22:03 O2 Del Method Room Air 11/18/23 22:03 BMI result Body Mass Index 21.5 Appearance: Alert. Oriented X3. No acute distress. Eyes: Pupils equal, round and reactive to light. ENT: Pharynx dry MM Neck: Normal inspection. Neck supple. CVS: irregular heart rate and rhythm. Pulses normal. Respiratory: No respiratory distress. Breath sounds normal. Abdomen: Soft and nontender. Skin: Skin warm and dry. Normal skin color. Normal skin turgor. Extremities: No lower extremity edema. Neuro: Oriented X 3. No motor deficit. No sensory deficit. Course Course Course Narrative: bladder scan 5mL will place calderon Medications Administered Discontinued Medications Generic Name Dose Route Start Last Admin Trade Name Ruslan PRN Reason Stop Dose Admin Sodium Chloride 1,000 mls @ 999 mls/hr 11/18/23 22:24 11/18/23 23:14 Ns IV 11/18/23 23:24 999 mls/hr .Q1H1M ONE Administration Potassium Chloride 10 meq in 100 mls @ 100 mls/hr 11/18/23 22:25 11/18/23 23:18 Potassium Chloride/H20 IV 11/18/23 23:24 100 mls/hr ONCE ONE Administration Potassium Chloride 20 meq 11/18/23 22:25 11/18/23 23:12 Potassium Chloride Er 20 Meq Tab.Er.Prt PO 11/18/23 22:26 20 meq ONCE ONE Administration Medical Decision Making Medical Decision Making [facility] Narrative: 78 yo female lifelong smoker but no longer, PVD, anemia, GERD, PPM, aortic stenosis, CKD baseline Cr 1.4 to 1.6, anxiety, depression, HTN, DM2, HLD, hypothyroidism, on aspirin and plavix here after routine appointment by PCP - she offers no complaints she was sent for low K, increased Cr and told her trop was 21 though she has no CP/SOB. She denies any recent GI losses or urinary symptoms. At this time will need basic labs, IVF, UA, US, CXR, EKG - start fluid and repletions and admit for further workup Differential Diagnosis Differential Diagnoses: The differential diagnosis associated with the presentation includes Riaz on CKD, lyte abnormality Admission/Observation Consideration of admission/observation: Escalation of care including admission/observation considered admit for worsening labs Consult Healthcare Provider Management of the patient was discussed with: Hospitalist (will admit) Lab Data [facility] Lab Attestation statement: I reviewed the patient's lab results. 11/18/23 21:57 11/18/23 21:57 Labs: Lab Results 11/18/23 Range/Units 21:57 WBC 10.1 (4.8-10.8) X10*3/uL RBC 3.74 L (4.20-5.50) X10*6/uL Hgb 11.5 L (12.0-16.0) g/dl Hct 33.3 L (37.0-47.0) % MCV 89.0 (80.0-98.0) fL MCH 30.7 (27.0-33.0) pg MCHC 34.5 (31.0-35.0) g/dl RDW 11.9 (11.0-16.0) % Plt Count 326 (160-400) X10*3/uL MPV 9.0 L (9.4-12.3) fL Immature Gran % (Auto) 0.3 (0.0-0.4) % Neut % (Auto) 80.6 H (45-73) % Lymph % (Auto) 12.6 L (20-40) % Bracken % (Auto) 4.5 (2-11) % Eos % (Auto) 1.6 (0-4) % Baso % (Auto) 0.4 (0-2) % Lymph # (Auto) 1.3 (1.2-4.9) X10*3/uL Bracken # (Auto) 0.5 (0.1-1.2) X10*3/uL Eos # (Auto) 0.2 (0.0-0.4) X10*3/uL Baso # (Auto) 0.0 (0.0-0.2) X10*3/uL Abs Immat Gran (auto) 0.03 (0.00-0.03) X10*3/uL Absolute Neuts (auto) 8.2 (2.0-8.3) x10*3/uL Absolute Nucleated RBC 0.000 (0.0-0.012) X10*3/uL Nucleated RBC % (auto) 0.0 (0.0-0.2) /100WBC PT 13.1 (11.1-13.3) SEC INR 1.1 (0.9-1.1) Sodium 140 (135-145) mmol/L Potassium 2.9 L* (3.3-5.1) mmol/L Chloride 98 (96-108) mmol/L Carbon Dioxide 27 (22-29) mmol/L Anion Gap 18 (12-20) BUN 36 H (9-16) mg/dL Creatinine 3.32 H (0.5-1.4) mg/dL Estim Creat Clear Calc 11.8 Estimated GFR 13 Random Glucose 185 H (60-115) mg/dL Calcium 9.8 (8.4-10.2) mg/dL Magnesium 1.6 (1.6-2.6) mg/dL Total Bilirubin 0.1 (0.0-1.0) mg/dL AST 10 (5-31) U/L ALT 7 (0-31) U/L Alkaline Phosphatase 83 (39-117) U/L Total Creatine Kinase 47 (26-140) U/L Troponin I High Sens 25.0 H (<3.5-17.0) ng/L B-Natriuretic Peptide 120 H (<100) pg/mL Total Protein 7.7 (6.5-8.0) g/dL Albumin 3.9 (3.5-5.0) g/dL Independent Interpretation I performed an independent interpretation of an: EKG, Plain X-Ray and Ultrasound Interpretation: Rate: 81 Rhythm: NSR with frequent PACs, pacer spikes noted [place]: left, LVH Normal P waves. Normal KRISTEN. Normal QRS complex. ST T wave : on NILSON, inverted t waves I and aVL qTC: 485 prior studies: no prior The study has been interpreted contemporaneously by me. . Radiology Impression Discussion of test interpretation with radiology: I have reviewed the radiologist's reading. External Record Review External record reviewed: Office record and Outpatient record Critical Care Time Critical Care Time Critical Care Time: Yes Total Critical Care Time: 35 Attestation: repeat labs, IV potassium repletion, admission I attest to this time spent taking care of the patient Discharge Plan Discharge Clinical Impression: Acute kidney injury superimposed on chronic kidney disease, Acute hypokalemia Patient Disposition: Admitted As Inpatient Print Language: Sami
[2023-11-18 22:52] LABS: B Type Natriuretic Peptide 120 pg/mL (<100)
[2023-11-18] MEDS: Potassium Chloride ER 20 MEQ TAB.ER.PRT PO (23:12)
[2023-11-18] MEDS: 0.9 % Sodium Chloride 1,000 ML 999 ML IV (23:14)
[2023-11-18] MEDS: Potassium Chloride/H20 10 MEQ/100 ML PIGGYBACK 100 MEQ IV (23:18)
--- NOTE | 2023-11-18 23:21 | PC.NURSE ---
Pt medicated per jul. Pt denies pain at this time. Son at bedside Plan of care ongoing.
--- NOTE | 2023-11-19 00:24 | P.HPHOSP_ITS ---
History of Present Illness Date of Service: 11/19/23 Chief Complaint: Abnormal labs This is a 78-year-old female with pertinent history of hypertension, peripheral vascular disease, history of CVA, status post pacemaker placement, gastroesophageal reflux disease, CKD stage 3 with baseline creatinine 1.5, zss-mtvvskk-bgccayljh diabetes mellitus, mixed hyperlipidemia, hypothyroidism, mood disorder was sent to the emergency department PCP for evaluation of elevated creatinine. Patient states she went to her doctor's appointment as a routine follow-up in got labs done. Her creatinine was found to be elevated and she was sent to the ER. Patient admits adequate p.o. intake. No nausea or vomiting. Has had diarrhea intermittently a year, no new change. No new medicines. Denies [id number] NSAID use. No fever, chills, chest discomfort, palpitations, shortness of breath, abdominal pain, changes in urinary or bowel habits. In the emergency department, creatinine found to be 3.32 and potassium found to be 2.9. Review of Systems 2 Constitutional: Constitutional: Reports no additional constitutional complaints Cardiovascular: Cardiovascular: Reports no additional cardiovascular complaints Respiratory: Respiratory: Reports no additional respiratory complaints Gastrointestinal: Gastrointestinal: Reports no additional gastrointestinal complaints Genitourinary: Genitourinary: Reports no additional female genitourinary complaints [facility] Medical History Cardiac pacemaker in situ Aortic stenosis Restless leg syndrome No pertinent family history Hyperlipidemia Chronic back pain Osteoarthritis GERD (gastroesophageal reflux disease) Anxiety and depression Type 2 diabetes mellitus Hypertension CKD (chronic kidney disease) stage 3, GFR 30-59 ml/min Hypothyroidism Cataracts, bilateral COPD (chronic obstructive pulmonary disease) Deafness in right ear Stroke Family History Mother Bladder cancer Brother Bladder cancer Surgical History History of esophagogastroduodenoscopy (EGD) H/O colonoscopy History of tonsillectomy History of appendectomy H/O: hysterectomy History of back surgery H/O thyroidectomy H/O endarterectomy S/P cardiac pacemaker procedure Social History Housing: House Patient Tobacco Use Status: Current everyday Tobacco user Tobacco use type: Cigarette Cigarette Packs Per Day: 0.25 Cigarettes Per Day: 5 Years Smoked: 70 Smoked in Last 30 Days: Yes e-Cigarette/Vaping Use: Never Used Use of substances other than those prescribed or required for medical reasons: Yes Substance Use Type: Marijuana Advance Directives: No Advance Directives Information Provided: Yes Do you have a plan to hurt others: No Plan service: No Current occupational status: retired Cognitive needs: No Hearing needs: No Vision needs: No Meds Allergies Allergy/AdvReac Type Severity Reaction Status Date / Time acetaminophen [From Percocet] Allergy Intermediate Itching Verified 11/18/23 21:48 oxycodone [From Percocet] Allergy Intermediate Itching Verified 11/18/23 21:48 Seasonal Allergies Allergy Intermediate Itchy Eyes Verified 11/18/23 21:48 ibuprofen [From Motrin] Allergy Unknown Swelling Verified 11/18/23 21:48 moltrin Allergy Severe Swelling Uncoded 11/18/23 11:40 Active Medications: Current Medications Sodium Chloride (Ns) 1,000 mls @ 80 mls/hr IVCONT .[id number] EBEN Home Medications ?Medication ?Instructions ?Recorded ?Confirmed ?Last Taken ?Type amlodipine 10 mg tablet 10 mg PO DAILY 12/20/22 11/18/23 Unknown History ferrous sulfate 325 mg (65 mg 325 mg PO QAM 12/20/22 11/18/23 Unknown History iron) tablet gabapentin 400 mg capsule 400 mg PO TID 12/20/22 11/18/23 Unknown History sertraline 100 mg tablet 100 mg PO BID 12/20/22 11/18/23 Unknown History budesonide 160 mcg-glycopyr 9 2 inh inhalation BID 01/16/23 11/18/23 Unknown History mcg-formot 4.8 mcg/actuation HFA inhaler ([employer]) Physical Exam 2 Vital Signs and Narrative: Vital Signs: Last Vital Signs Temp 98.1 F 11/18/23 22:03 Pulse 76 11/18/23 22:03 Resp 16 11/18/23 22:03 BP 151/61 H 11/18/23 22:03 Pulse Ox 95 11/18/23 22:03 O2 Del Method Room Air 11/18/23 22:03 BMI result Body Mass Index 21.5 Middle-aged female lying in bed in no distress Neck supple, no JVD Regular rate and rhythm, S1-S2 heard Regular breath sounds bilaterally, no wheezing or crackles appreciated Abdomen soft nontender, no guarding, no rigidity Patient is awake, alert and oriented to self, place, time and person ; no focal motor deficit Psych: Normal mood No pedal edema Results Labs 11/18/23 21:57 11/18/23 21:57 Labs: Laboratory Results - last 24 hr 11/18/23 21:57 MCV 89.0 MCH 30.7 MCHC 34.5 RDW 11.9 Plt Count 326 MPV 9.0 L Immature Gran % (Auto) 0.3 Neut % (Auto) 80.6 H Lymph % (Auto) 12.6 L [place] % (Auto) 4.5 Eos % (Auto) 1.6 Baso % (Auto) 0.4 Lymph # (Auto) 1.3 [place] # (Auto) 0.5 Eos # (Auto) 0.2 Baso # (Auto) 0.0 Abs Immat Gran (auto) 0.03 Absolute Neuts (auto) 8.2 Absolute Nucleated RBC 0.000 Nucleated RBC % (auto) 0.0 PT 13.1 INR 1.1 Anion Gap 18 Estim Creat Clear Calc 11.8 Estimated GFR 13 Random Glucose 185 H Calcium 9.8 Magnesium 1.6 Total Bilirubin 0.1 AST 10 ALT 7 Alkaline Phosphatase 83 Total Creatine Kinase 47 Troponin I High Sens 25.0 H B-Natriuretic Peptide 120 H Total Protein 7.7 Albumin 3.9 Imaging Radiologist's Impressions: Impressions Renal Ultrasound 11/18/23 22:48 IMPRESSION: 1. No nephrolithiasis or hydronephrosis. 2. Mildly increased cortical echogenicity suggesting underlying chronic renal disease. 3. Simple appearing cysts in the right kidney, for which no imaging follow-up is recommended. Chest X-Ray 11/18/23 23:00 IMPRESSION: No significant change compared to 12/11/2021. Assessment and Plan (1) Acute kidney injury superimposed on chronic kidney disease: Status: Acute (2) Acute hypokalemia: Status: Acute Plan This is a 78-year-old female with pertinent history of hypertension, peripheral vascular disease, history of CVA, status post pacemaker placement, gastroesophageal reflux disease, CKD stage 3 with baseline creatinine 1.5, geo-ztatewa-ssvlwpwrp diabetes mellitus, mixed hyperlipidemia, hypothyroidism, mood disorder was sent to the emergency department PCP for evaluation of elevated creatinine. #. Acute kidney injury on CKD stage III: IV crystalloids order in the ER. Monitor creatinine urine output. No obstruction on renal ultrasound. Avoid nephrotoxins. Urine studies pending #. Hypokalemia: Repleted #. Wbv-vbkahpz-yrmytptsa diabetes mellitus with hyperglycemia: Initiating Accu-Cheks with sliding scale insulin #. Hypertension: Hold lisinopril in the setting of LINDSEY #. Mood disorder: Continue home mood stabilizers #. Peripheral vascular disease/history of CVA/mixed hyperlipidemia: On dual antiplatelet therapy and high-intensity statin #. Hypothyroidism: On Synthroid Med rec pending DVT prophylaxis: Lovenox Full code Admit as inpatient and will require two night minimum hospital stay for close monitoring of creatinine and electrolytes (as above), which is not possible in a lesser acute setting. Quality Stroke Does the patient have a stroke diagnosis?: No VTE Prior VTE?: No VTE Risk Level:: Medical - moderate - high VTE Device Contraindication: Treatment Not Indicated VTE Drug Contraindication: N/A - Med Ordered
[2023-11-19 01:34] VITALS: BP 196/88; PULSE 75; RESP 16; TEMP 36.4; O2SAT 95
[2023-11-19] MEDS: 0.9 % Sodium Chloride 1,000 ML 80 ML IVCONT (02:29)
[2023-11-19] MEDS: Potassium Chloride/H20 10 MEQ/100 ML PIGGYBACK 100 MEQ IV ×4 (02:29→06:12)
--- NOTE | 2023-11-19 02:37 | PC.NURSE ---
Pt medicated per jul. Plan of care ongoing.
--- NOTE | 2023-11-19 03:41 | PC.NURSE ---
Pt medicated per [facility] Plan of care ongoing.
[2023-11-19 04:39] LABS: Appearance Urine Clear; Color Urine Yellow; Glucose Urine UA Negative (Negative); Leukocyte Esterase Urine Negative (Negative); Nitrite Urine Negative (Negative); PH 5.5 (5.0-9.0); Specific Gravity - Urine 1.015 (1.005-1.025); UMIC TRIGGER UACC YES; Urine Blood Negative (Negative); Urine Ketones Negative (Negative); Urine Protein 300 (3+) mg/dL (Neg-Trace)
[2023-11-19 04:51] LABS: Creatinine Urine 110.25 mg/dL
[2023-11-19 04:56] LABS: Bacteria Urine None Seen (None Seen); RBC Urine 0-2 /HPF (0-2); WBC Urine 0-5 /HPF (0-5)
[2023-11-19 05:06] VITALS: BP 181/81; PULSE 80; RESP 14; TEMP 36.7; O2SAT 93
--- NOTE | 2023-11-19 05:09 | PC.NURSE ---
Pt medicated per jul. Plan of care ongoing.
[2023-11-19 06:15] LABS: MANUAL DIFF FLAG NO
--- NOTE | 2023-11-19 06:16 | PC.NURSE ---
Pt medicated per jul. Plan of care ongoing.
[2023-11-19 06:22] LABS: Basophils Percent Auto 0.4 % (0-2); Eosinophils Absolute Auto 0.3 X10*3/uL (0.0-0.4); Eosinophils Percent Auto 3.4 % (0-4); Hematocrit 31.1 % (37.0-47.0); Hemoglobin 10.3 g/dl (12.0-16.0); Imm Gran Abs Auto 0.03 X10*3/uL (0.00-0.03); Imm Gran Pct Auto 0.4 % (0.0-0.4); Lymphocytes Absolute Auto 1.2 X10*3/uL (1.2-4.9); Lymphocytes Percent Auto 15.8 % (20-40); Mean Corpuscular HGB Conc 33.1 g/dl (31.0-35.0); Mean Corpuscular Hemoglobin 29.8 pg (27.0-33.0); Mean Corpuscular Volume 89.9 fL (80.0-98.0); Mean Platelet Volume 9.1 fL (9.4-12.3); Monocytes Absolute Auto 0.5 X10*3/uL (0.1-1.2); Neutrophils Absolute Auto 5.6 x10*3/uL (2.0-8.3); Platelet Count 266 X10*3/uL (160-400); Red Blood Count 3.46 X10*6/uL (4.20-5.50); White Blood Count 7.7 X10*3/uL (4.8-10.8)
--- NOTE | 2023-11-19 06:27 | PC.NURSE ---
Pt ambulated to the restroom with a steady gait. Plan of care ongoing.
[2023-11-19 06:33] LABS: Anion Gap 15 (12-20); Blood Urea Nitrogen 33 mg/dL (9-16); Calcium 8.8 mg/dL (8.4-10.2); Carbon Dioxide 23 mmol/L (22-29); Chloride 107 mmol/L (96-108); Creatinine Clr Calc Pharmacy 15.5; Estimated Glomerular Filt Rate 18; Glucose Random 95 mg/dL (60-115); Potassium 3.6 mmol/L (3.3-5.1); Sodium 141 mmol/L (135-145)
[2023-11-19 07:08] LABS: Glucose, Whole Blood 95 mg/dL (60-115)
[2023-11-19 09:17] VITALS: BP 148/68; PULSE 68; RESP 14; TEMP 36; O2SAT 94
[2023-11-19 09:18] VITALS: BMI 23.3
--- NOTE | 2023-11-19 09:20 | PHA.MEDREC ---
Addendum entered by Sonam Hernández blas 11/19/23 09:36: reviewed Original Note: Pharmacy Consult ? Medication Reconciliation Pharmacy has completed the medication reconciliation. Confirmed medications with patient. She states she all done with her Anti-biotics and she took Clopidogrel her blood thinner last yesterday morning.
[2023-11-19] MEDS: Enoxaparin Sodium 30 MG/0.3 ML SYRINGE SUBCUT (09:32)
[2023-11-19 10:27] VITALS: BP 148/68; PULSE 93
[2023-11-19 11:00] VITALS: BP 146/70
[2023-11-19 11:01] VITALS: BP 155/76
--- NOTE | 2023-11-19 11:12 | P.DS_ITS ---
DS: Providers Provider Date of Service: 11/19/23 Date of admission: 11/19/23 00:23 Primary care physician: Jaylen Taylor CNP DS: Diagnosis Discharge Diagnosis (1) Acute kidney injury superimposed on chronic kidney disease: Status: Acute (2) Acute hypokalemia: Status: Acute DS: Summary Hospital Course Hospital Course: from initial hpi: 78-year-old female with pertinent history of hypertension, peripheral vascular disease, history of CVA, status post pacemaker placement, gastroesophageal reflux disease, CKD stage 3 with baseline creatinine 1.5, pox-khbswcy-ekdxdybhm diabetes mellitus, mixed hyperlipidemia, hypothyroidism, mood disorder was sent to the emergency department PCP for evaluation of elevated creatinine. Patient states she went to her doctor's appointment as a routine follow-up in got labs done. Her creatinine was found to be elevated and she was sent to the ER. Patient admits adequate p.o. intake. No nausea or vomiting. Has had diarrhea intermittently a year, no new change. No new medicines. Denies jkql-jub-tvwlgtm NSAID use. No fever, chills, chest discomfort, palpitations, shortness of breath, abdominal pain, changes in urinary or bowel habits. In the emergency department, creatinine found to be 3.32 and potassium found to be 2.9. hospital course: Patient was admitted for acute kidney injury on CKD 3 likely due to hypotension from hypovolemia and blood pressure medications. Was given IV fluids. Blood pressure now on the higher side. Creatinine improving. Orthostatic blood pressures negative. No obstruction on renal ultrasound. Patient feeling back to baseline ambulating well without any lightheadedness or dizziness that she was previously experiencing. We will discharged home with follow up with Nephrology and PCP, amlodipine will be moved to evening. Should get repeat BMP later this week or early next week and monitor blood pressures. For acute hypokalemia she received replacement. For peripheral vascular disease/history of CVA was continued on antiplatelet and statin. For hypothyroidism was continued on Synthroid. For qwqa-ag-owgincff aortic stenosis will continue follow up with Cardiology as outpatient. Time Attestation Discharge Coordination Time (in mins): 33 Quality: Safe Use of Opioids Does Pt have an Active Cancer Diagnosis on the Problem List?: No Quality: Stroke Does the patient have a stroke diagnosis?: No Physical Exam Vital Signs: Vital Signs: Last Vital Signs Temp 96.8 F 11/19/23 09:17 Pulse 93 11/19/23 10:27 Resp 14 11/19/23 09:17 BP 155/76 H 11/19/23 11:01 Pulse Ox 94 11/19/23 09:17 O2 Del Method Room Air 11/19/23 09:17 BMI result Body Mass Index 23.3 General: AO X 3, no acute distress Resp: CTA bilateral, no accessory muscles used CVS: S1,S2,RRR, murmur GI: soft, non tender, non distended Neuro: motor grossly intact, alert Psych: appropriate affect, appropriate insight DS: Data Data Completed and Pending Labs on day of discharge: Laboratory Results - last 24 hr 11/18/23 11/19/23 11/19/23 21:57 04:32 05:35 WBC 10.1 7.7 RBC 3.74 L 3.46 L Hgb 11.5 L 10.3 L Hct 33.3 L 31.1 L MCV 89.0 89.9 MCH 30.7 29.8 MCHC 34.5 33.1 RDW 11.9 12.0 Plt Count 326 266 MPV 9.0 L 9.1 L Immature Gran % (Auto) 0.3 0.4 Neut % (Auto) 80.6 H 73.0 Lymph % (Auto) 12.6 L 15.8 L [place] % (Auto) 4.5 7.0 Eos % (Auto) 1.6 3.4 Baso % (Auto) 0.4 0.4 Lymph # (Auto) 1.3 1.2 [place] # (Auto) 0.5 0.5 Eos # (Auto) 0.2 0.3 Baso # (Auto) 0.0 0.0 Abs Immat Gran (auto) 0.03 0.03 Absolute Neuts (auto) 8.2 5.6 Absolute Nucleated RBC 0.000 0.000 Nucleated RBC % (auto) 0.0 0.0 PT 13.1 INR 1.1 Sodium 140 141 Potassium 2.9 L* 3.6 D Chloride 98 107 Carbon Dioxide 27 23 Anion Gap 18 15 BUN 36 H 33 H Creatinine 3.32 H 2.54 H Estim Creat Clear Calc 11.8 15.5 Estimated GFR 13 18 POC Glucose Random Glucose 185 H 95 Calcium 9.8 8.8 D Magnesium 1.6 Total Bilirubin 0.1 AST 10 ALT 7 Alkaline Phosphatase 83 Total Creatine Kinase 47 Troponin I High Sens 25.0 H B-Natriuretic Peptide 120 H Total Protein 7.7 Albumin 3.9 Urine Color Yellow Urine Appearance Clear Urine pH 5.5 Ur Specific [employer] 1.015 Urine Protein 300 (3+) H Urine Glucose (UA) Negative Urine Ketones Negative Urine Blood Negative Urine Nitrite Negative Ur Leukocyte Esterase Negative Urine RBC 0-2 Urine WBC 0-5 Ur Squamous Epith Cells 3-5 Urine Bacteria None Seen Hyaline Casts 11-20 Urine Yeast Present Ur Random Sodium 38.0 Urine Creatinine 110.25 11/19/23 07:04 WBC RBC Hgb Hct MCV MCH MCHC RDW Plt Count MPV Immature Gran % (Auto) Neut % (Auto) Lymph % (Auto) [place] % (Auto) Eos % (Auto) Baso % (Auto) Lymph # (Auto) [place] # (Auto) Eos # (Auto) Baso # (Auto) Abs Immat Gran (auto) Absolute Neuts (auto) Absolute Nucleated RBC Nucleated RBC % (auto) PT INR Sodium Potassium Chloride Carbon Dioxide Anion Gap BUN Creatinine Estim Creat Clear Calc Estimated GFR POC Glucose 95 Random Glucose Calcium Magnesium Total Bilirubin AST ALT Alkaline Phosphatase Total Creatine Kinase Troponin I High Sens B-Natriuretic Peptide Total Protein Albumin Urine Color Urine Appearance Urine pH Ur Specific [employer] Urine Protein Urine Glucose (UA) Urine Ketones Urine Blood Urine Nitrite Ur Leukocyte Esterase Urine RBC Urine WBC Ur Squamous Epith Cells Urine Bacteria Hyaline Casts Urine Yeast Ur Random Sodium Urine Creatinine Discharge Plan Discharge Anticipated Discharge Date/Time: 11/19/23 11:09 Patient Disposition: Home, Self-Care Discharge Diagnosis: hypotension, libertad Referrals: Jaylen Taylor CNP [Primary Care Provider] - 1 Week Discharge Medications: Continued cilostazol 100 mg tablet 100 mg PO BID 30 Days Qty: 60 3RF levothyroxine 137 mcg tablet 137 mcg PO DAILY 30 Days Qty: 30 3RF folic acid 400 mcg tablet 0.4 mg PO DAILY 30 Days Qty: 30 1RF atorvastatin 80 mg tablet 80 mg PO BEDTIME 30 Days Qty: 30 3RF clopidogrel 75 mg tablet 75 mg PO DAILY 30 Days Qty: 30 3RF diphenhydramine-acetaminophen [Acetaminophen PM] 25-500 mg Tablet 2 tab PO BEDTIME pramipexole 0.125 mg tablet 0.25 mg PO BEDTIME lisinopril 2.5 mg tablet 2.5 mg PO BEDTIME acetaminophen [Tylenol 8 Hour] 650 mg tablet extended release 650 mg PO Q8H PRN (Reason: pain) Qty: 60 0RF buspirone 7.5 mg tablet 7.5 mg PO BID 30 Days Qty: 60 3RF cetirizine [Zyrtec] 10 mg tablet 10 mg PO DAILY 30 Days Qty: 30 1RF sertraline 100 mg tablet 100 mg PO BID ferrous sulfate 325 mg (65 mg iron) tablet 325 mg PO DAILY gabapentin 400 mg capsule 400 mg PO TID Metamucil 3.4 gram/5.4 gram powder 1 tbsp PO DAILY Qty: 660 0RF Rx Instructions: mix into at least 8 oz of water or juice before administering. May increase to BID with persistent/worsening symptoms [employer]tri [employer] 160-9-4.8 mcg/actuation HFA aerosol inhaler 1 inh inhalation BID Changed amlodipine 10 mg tablet 10 mg PO BEDTIME Qty: 90 0RF Discharge Orders: Discharge Order (Routine); Ordered 11/19/23 Ordered By: Yann Rivero Diet: Advance to usual diet Activity on Discharge: As tolerated Stand Alone Forms: Patient Portal Discharge page Print Language: Palauan Care Plan Goals: recovery Health Concerns: hypotension, libertad Plan of Treatment: move amlodipine to night time, monitor blood pressures, renal fucntion, follow up with nephro, pcp Assessment: see above
--- NOTE | 2023-11-19 11:16 | MHC.CM.PN ---
pt dcd home self care
[2023-11-19 11:37] LABS: Glucose, Whole Blood 96 mg/dL (60-115)
[2023-11-19 11:48] LABS: Appearance Urine Clear; Color Urine Yellow; Glucose Urine UA Negative (Negative); Leukocyte Esterase Urine Negative (Negative); Nitrite Urine Negative (Negative); UMIC TRIGGER UACC YES; Urine Blood Negative (Negative); Urine Ketones Negative (Negative); Urine Protein 300 (3+) mg/dL (Neg-Trace)
[2023-11-19 12:02] LABS: RBC Urine 0-2 /HPF (0-2); Squamous Epithelial Cell Urine 0-2 /HPF (0-2); WBC Urine 0-5 /HPF (0-5)
[2023-11-19 12:03] LABS: Hyaline Casts Urine 0-2 /LPF (0-2)
[2023-11-19 12:04] LABS: Bacteria Urine 1+ (None Seen)
== END 2023-11-19 12:33 | disposition home or self-care (01) | DRG 641 ==
LOC: HO.ED 23:00 → HO.EDOVER 11-19 00:26 → HO.S3 11-19 08:01
PROVIDERS: Admitting Provider Student in an Organized Health Care Education/Training Program; Emergency Provider Emergency Medicine; PCP Nurse Practitioner Family; Visit Provider Internal Medicine
DX: E86.1 Hypovolemia (principal); N17.9 Acute kidney failure, unspecified; I95.9 Hypotension, unspecified; J44.9 Chronic obstructive pulmonary disease, unspecified; I12.9 Hypertensive chronic kidney disease with stage 1 through stage 4 chronic kidney disease, or unspecified chronic kidney disease; E87.6 Hypokalemia; K21.9 Gastro-esophageal reflux disease without esophagitis; E03.9 Hypothyroidism, unspecified; E78.2 Mixed hyperlipidemia; I35.0 Nonrheumatic aortic (valve) stenosis; E11.65 Type 2 diabetes mellitus with hyperglycemia; T46.1X5A Adverse effect of calcium-channel blockers, initial encounter; E11.51 Type 2 diabetes mellitus with diabetic peripheral angiopathy without gangrene; N18.30 Chronic kidney disease, stage 3 unspecified; E11.22 Type 2 diabetes mellitus with diabetic chronic kidney disease; Z95.0 Presence of cardiac pacemaker; Z87.891 Personal history of nicotine dependence; Z86.73 Personal history of transient ischemic attack (TIA), and cerebral infarction without residual deficits; Z79.02 Long term (current) use of antithrombotics/antiplatelets; Z79.82 Long term (current) use of aspirin; Z79.899 Other long term (current) drug therapy
CPT/HCPCS: 36415; 71045; 76775; 80048; 80053; 81001; 82550; 82570; 82728; 82947; 83540; 83735; 83880; 84300; 84484; 85025; 85027; 85045; 85610; 93005; 99221; 99285; J1650; J3480

== ENCOUNTER → 2023-11-18 21:45 | Outpatient (BNV) | payer MEDICARE, SELFPAY | PROVIDERS: Admitting Provider Student in an Organized Health Care Education/Training Program; Emergency Provider Emergency Medicine; PCP Nurse Practitioner Family; Visit Provider Internal Medicine Cardiovascular Disease | DX: R94.31 Abnormal electrocardiogram [ECG] [EKG] (principal) | CPT/HCPCS: 93010 ==

== ENCOUNTER → 2023-11-19 00:23 | Outpatient (BNV) | payer MEDICARE, SELFPAY | PROVIDERS: Admitting Provider Student in an Organized Health Care Education/Training Program; Emergency Provider Emergency Medicine; PCP Nurse Practitioner Family; Visit Provider Student in an Organized Health Care Education/Training Program | DX: N17.9 Acute kidney failure, unspecified (principal); N18.30 Chronic kidney disease, stage 3 unspecified; E87.6 Hypokalemia | CPT/HCPCS: 99235; 99499 ==

== ENCOUNTER 2023-12-02 11:24 | Outpatient (AMB) | payer MEDICARE, SELFPAY ==
--- NOTE | 2023-12-02 11:29 | MHC.PC.OV ---
Vital Signs 12/02/23 11:36 12/02/23 12:29 Height 5 ft 4 in Weight 134 lb 6 oz BMI 23.1 BP 120/54 L 114/66 Blood Pressure Location Lt brachial Rt brachial Position Sitting Sitting Respiration 16 Pulse 57 Pulse Source Pulse Oximeter Temp 98.0 F Temp Source Oral Pulse Oximetry (%) 97 Oxygen Delivery Method Room Air Intake Visit Reasons: 2 wks hypotension Intake Note: patient here for 2 weeks follow up on HTN. 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 Required: No Is last menstrual period known: No Post menopausal: No Patient : No Allergies acetaminophen [From Percocet] Allergy (Intermediate, Verified 12/02/23 15:21) Itching oxycodone [From Percocet] Allergy (Intermediate, Verified 12/02/23 15:21) Itching Seasonal Allergies Allergy (Intermediate, Verified 12/02/23 15:21) Itchy Eyes ibuprofen [From Motrin] Allergy (Unknown, Verified 12/02/23 15:21) Swelling moltrin Allergy (Severe, Uncoded 12/02/23 15:21) Swelling Medication List - Last Reconciled 12/02/23 by Jaylen Taylor CNP acetaminophen ER (Tylenol 8 Hour) 650 mg PO Q8H PRN amlodipine 10 mg PO BEDTIME atorvastatin 80 mg PO BEDTIME 30 days [id number] 160-9-4.8 mcg/actuation (Breztri Aerosphere) 1 inh inhalation BID buspirone 7.5 mg PO BID 30 days cetirizine (Zyrtec) 10 mg PO DAILY 30 days cilostazol 100 mg PO BID 30 days clopidogrel 75 mg PO DAILY 30 days diphenhydramine-acetaminophen 25-500 mg (Acetaminophen PM) 2 tabs PO BEDTIME ezetimibe 10 mg PO DAILY ferrous sulfate 325 mg PO DAILY folic acid 0.4 mg PO DAILY 30 days gabapentin 400 mg PO TID levothyroxine 137 mcg PO DAILY 30 days lisinopril 2.5 mg PO BEDTIME pramipexole 0.25 mg PO BEDTIME psyllium husk (Metamucil) 1 tbsp PO DAILY sertraline 100 mg PO BID Tobacco use date assessed: 12/02/23 Fall risk assessment: No Falls in past year Dental Screening Dental Screen Date: 11/18/23 HPI HPI Comments History of Present Illness Details 78-year-old female presents for hypertension follow-up She admits to taking her medications as prescribed without adverse reactions She offers no complaints and denies acute symptoms at this time She was evaluated 2 weeks ago with complaints of dizziness and fatigue. She was hypotensive with blood pressure 80/50, heart rate was 80. Her amlodipine and lisinopril were held. Her labs were concerning, therefore, she was [place] [facility] [place]CP that same day for further workup. Her potassium was low and poor renal function. She received IV fluids. She was sent home the following day with instructions to continue amlodipine 10 mg at bedtime and lisinopril 2.5 mg at bedtime; she was advised to follow-up with Nephrology and her PCP. Review of echocardiogram results on 11/19/2023 revealed AFib. 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 The MA call the patient's pharmacy and was informed that sertraline 100 mg twice daily was last picked up in 06/26/2023 and ferrous sulfate 325 mg daily was last picked up on 04/03/2023. [facility] Medical History Cardiac pacemaker in situ Aortic stenosis Restless leg syndrome No pertinent family history Hyperlipidemia Chronic back pain Osteoarthritis GERD (gastroesophageal reflux disease) Anxiety and depression Type 2 diabetes mellitus Hypertension CKD (chronic kidney disease) stage 3, GFR 30-59 ml/min Hypothyroidism Cataracts, bilateral COPD (chronic obstructive pulmonary disease) Deafness in right ear Stroke Surgical History History of esophagogastroduodenoscopy (EGD) H/O colonoscopy History of tonsillectomy History of appendectomy H/O: hysterectomy History of back surgery H/O thyroidectomy H/O endarterectomy S/P cardiac pacemaker procedure Family History Mother Bladder cancer Brother Bladder cancer Social History Household Members: Children Housing: House Do you presently have visiting nurse or other home services: No Patient Tobacco Use Status: Current everyday Tobacco user Tobacco use type: Cigarette Cigarette Packs Per Day: 0.25 Cigarettes Per Day: 10 Years Smoked: 70 e-Cigarette/Vaping Use: Never Used Substance Use Type: Marijuana service: No Current occupational status: retired Cognitive needs: No Hearing needs: No Vision needs: No Questionnaire Thrive Questionnaire Date Thrive assessed: 11/19/23 MARCELA-7 AMB Questionnaire MARCELA-7 Date MARCELA - 7 assessed: 11/18/23 Source: Developed by Drs. Bonifacio Bethea, Danni Villa, Rico Wilcox and colleagues, with an educational saranya from [employer]. Review of Systems Const Details: Const Denies chills, Denies fatigue, Denies fever(s), Denies headache(s) and Denies weakness ENT Denies dizziness and Denies headache(s) Card Denies chest pain, Denies lightheadedness, Denies dyspnea and Denies other (Palpitations) Resp Denies cough, Denies dyspnea, Denies wheezing and Denies other ( shortness of breath) GI Denies abdominal pain, Denies melena, Denies hematochezia, Denies change in bowel habits, Denies dyspepsia and Denies nausea Denies hematuria and Denies dysuria Musc Denies abnormal gait, Denies myalgias, Denies arthralgias, Denies numbness and Denies tingling Skin/Breast Denies rash, Denies unusual bruising and Denies wounds Neuro Denies abnormal gait, Denies dizziness, Denies headache(s), Denies memory loss, Denies numbness, Denies Sensory deficit (Neuro), Denies tingling and Denies weakness Psych Denies anxiety, Denies depression, Denies memory loss Endo Denies cold intolerance, Denies fatigue, Denies heat intolerance, Denies polydipsia and Denies polyuria Aller/Immun Denies wheezing Physical exam (Primary Care) Vital Signs: Last Vital Signs Temp 98.0 F 12/02/23 11:36 Pulse 57 12/02/23 11:36 Resp 16 12/02/23 11:36 BP 114/66 12/02/23 12:29 Pulse Ox 97 12/02/23 11:36 Oxygen Delivery Method Room Air 12/02/23 11:36 BMI result Body Mass Index 23.1 Tobacco/Smoking Status: Tobacco use Status Tobacco use date assessed 12/02/23 12/02/23 11:36 Patient Tobacco Use Status Current everyday Tobacco 12/02/23 11:32 Tobacco use type Cigarette 12/02/23 11:32 e-Cigarette/Vaping Use Never Used 12/02/23 11:32 Thrive Assessment: Date of Thrive Assessment Date Thrive assessed 11/19/23 12/02/23 11:32 Const Other: General: no acute distress and well developed Nutritional Appearance: well nourished Orientation/consciousness: patient oriented x3 HENMT Head: Yes normocephalic and Yes atraumatic Eyes General: appearance normal, both eyes and all related structures Pupils: Equal, round and reactive pupils present EOM: EOMs intact bilaterally Resp Effort & Inspection: normal respiratory effort Auscultation: clear to auscultation bilaterally Cardio Rate: regular rate Rhythm: regular rhythm Heart sounds: S1 normal heart sound present, S2 normal heart sound present, no gallops, no murmurs and no rubs GI Palpation (GI): No Abdominal aortic bruit present, Soft to palpation, nontender, No hepatosplenomegaly present and No Rebound tenderness present Auscultation: normal bowel sounds General: Yes no CVA tenderness Back/Spine/Pelvis Back: no CVA tenderness Cervical Spine: cervical ROM normal and No Cervical spine tenderness Thoracic/Lumbar Spine: thoraco-lumbar ROM normal, No pain with thoraco-lumbar ROM, No thoracic spinal tenderness and No lumbar spinal tenderness Extrem General: Yes normal to inspection, No edema and No calf tenderness Skin General: warm and dry. Normal skin color. Normal skin turgor Neuro General: patient oriented x3, gait normal and no focal neuro deficit Cranial nerves: Yes Equal, round and reactive pupils present Cognition (Neuro): normal cognition Gait exam (Neuro): Normal gait present Sensory Exam: No Sensory deficit (Neuro) Psych Appearance: grossly normal Affect: normal affect Attitude: cooperative Thought process: Normal thought process present Assessment and Plan Assessment & Plan (1) Hypotension: Code(s): I95.9 - Hypotension, unspecified Plan: Resting blood pressure is 114/66, within goal of less than 130/80 Continue current treatment regimen Low-sodium diet encouraged Advised to get BMP blood work done today. Will review results and make changes as needed Follow-up in 1 month for hypertension (2) CKD (chronic kidney disease) stage 3, GFR 30-59 ml/min: Code(s): N18.30 - Chronic kidney disease, stage 3 unspecified Qualifiers: Chronic kidney disease stage 3 subtype: stage 3b (GFR 30-44) Qualified Code(s): N18.32 - Chronic kidney disease, stage 3b Plan: Recently hospitalized for hypotension BUN and creatinine level were 33 and 2.54 respectively. GFR was 18 [place] [facility] [place] Orders: Orders Complete Blood Count no Diff Today D64.9 - Anemia, unspecified, I95.9 - Hypotension, unspecified Reticulocyte Count Today D64.9 - Anemia, unspecified Referrals Nephrology Referral N18.32 - Chronic kidney disease, stage 3b Coding Level of Care Code Est Pt Level 4 (12345) Complex EM visit Add On G2211 Diagnoses Hypotension I95.9 Stage 3b chronic kidney disease N18.32 Chronic kidney disease stage 3 subtype: stage 3b (GFR 30-44)
[2023-12-02 11:36] VITALS: BP 120/54; PULSE 57; RESP 16; TEMP 36.7; O2SAT 97; BMI 23.1
[2023-12-02 12:29] VITALS: BP 114/66
== END 2023-12-02 12:43 | disposition home or self-care (01) ==
PROVIDERS: PCP Nurse Practitioner Family; Visit Provider Nurse Practitioner Family
DX: I95.9 Hypotension, unspecified (principal); N18.32 Chronic kidney disease, stage 3b
CPT/HCPCS: 99214; G2211

== ENCOUNTER 2023-12-03 08:29 | Outpatient (REF) | payer MEDICARE, SELFPAY ==
[2023-12-03 11:37] LABS: Hematocrit 35.2 % (37.0-47.0); Hemoglobin 11.4 g/dl (12.0-16.0); Immature Retic Fraction 18.2 % (3.0-15.9); Mean Corpuscular HGB Conc 32.4 g/dl (31.0-35.0); Mean Corpuscular Hemoglobin 30.2 pg (27.0-33.0); Mean Corpuscular Volume 93.4 fL (80.0-98.0); Mean Platelet Volume 9.7 fL (9.4-12.3); Platelet Count 319 X10*3/uL (160-400); Red Blood Count 3.77 X10*6/uL (4.20-5.50); Red Cell Distribution Width 13.4 % (11.0-16.0); Retic HGB Equivalent 35.3 pg (30.0-35.0); Reticulocyte Percent 2.6 % (0.5-1.8); Reticulocytes Absolute 0.098 X10*6/uL (0.026-0.095); White Blood Count 8.1 X10*3/uL (4.8-10.8)
[2023-12-03 11:59] LABS: Anion Gap 12 (12-20); Blood Urea Nitrogen 28 mg/dL (9-16); Calcium 10.5 mg/dL (8.4-10.2); Carbon Dioxide 24 mmol/L (22-29); Chloride 107 mmol/L (96-108); Estimated Glomerular Filt Rate 20; Glucose Random 146 mg/dL (60-115); Potassium 4.1 mmol/L (3.3-5.1); Sodium 139 mmol/L (135-145)
[2023-12-03 12:29] LABS: B Type Natriuretic Peptide 100 pg/mL (<100)
[2023-12-04 09:14] LABS: Iron 43 mcg/dL (30-160); Percent Iron Saturation 12 % (15-50); Total Iron Binding Capacity 359 mcg/dL (228-428); Unsaturated Iron Binding 316 ug/dL
== END 2023-12-03 08:30 | disposition home or self-care (01) ==
LOC: HO.WFDLDS 08:29
PROVIDERS: Internal Medicine Cardiovascular Disease; Visit Provider Nurse Practitioner Family
DX: R42 Dizziness and giddiness (principal); I95.9 Hypotension, unspecified; R53.83 Other fatigue; D64.9 Anemia, unspecified; I35.0 Nonrheumatic aortic (valve) stenosis
CPT/HCPCS: 36415; 80048; 83540; 83880; 85027; 85045

== ENCOUNTER 2023-12-09 13:34 | Outpatient (AMB) | payer MEDICARE, SELFPAY ==
[2023-12-09 13:38] VITALS: BP 155/71; PULSE 80; BMI 22.9
--- NOTE | 2023-12-09 13:38 | MHC.OFFVIS ---
Vital Signs 12/09/23 13:38 Height 5 ft 4 in Weight 133 lb 2.547 oz BMI 22.9 BP 155/71 H Blood Pressure Location Lt brachial Position Sitting Pulse 80 Intake Visit Reasons: Diarrhea Intake Note: Patient returns in follow up of diarrhea. CC: Patient states that after she eats 10-15 minutes after she has to go to the bathroom with diarrhea. She states that now she is waking up in the middle of the night with diarrhea and stays up 1-2 hours. She states that she stopped eating everything she was told to stop eating. She report stomachache for a while but not so bad per patient. She states that she was seen in the ER on 11/17 with low blood pressure. 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 Required: No Accompanied by: Self / Same As Patient Allergies acetaminophen [From Percocet] Allergy (Intermediate, Verified 12/09/23 13:50) Itching oxycodone [From Percocet] Allergy (Intermediate, Verified 12/09/23 13:50) Itching Seasonal Allergies Allergy (Intermediate, Verified 12/09/23 13:50) Itchy Eyes ibuprofen [From Motrin] Allergy (Unknown, Verified 12/09/23 13:50) Swelling HPI HPI Diarrhea: Details: Assessment & Plan (1) Diarrhea: Code(s): R19.7 - Diarrhea, unspecified (2) Periumbilical abdominal pain: Code(s): R10.33 - Periumbilical pain (3) GERD (gastroesophageal reflux disease): Code(s): K21.9 - Gastro-esophageal reflux disease without esophagitis (4) Wheat allergy: Comment: This appears to be some other component than gluten Code(s): Z91.018 - Allergy to other foods (5) Peanut allergy: Code(s): Z91.010 - Allergy to peanuts (6) Allergy to egg white: Code(s): Z91.012 - Allergy to eggs (7) Cow's milk allergy: Code(s): Z91.011 - Allergy to milk products (8) Allergy to sesame seed: Code(s): Z91.018 - Allergy to other foods Plan We review all the tests and it appears that her severe diarrhea comes down to multiple food allergies. I wrote down all of the allergies for her, and tell her that we can not really evaluate how to medicate her until she is eliminated these from her diet and we see if there is any remaining functional disorder contributing to the problem. She gives me a log of her stooling which I scanned to the chart and she literally is having bowel movements 7-10 times a day which clearly is not good for her. The ultrasound does not show any contributing cause for her diarrhea like gallstones although it does appear that she has cholesterolosis so I did warn her that she may develop gallstones going forward. At this time I do not suspect gallbladder dysfunction. She is allergic to egg whites, peanuts, cow's milk, wheat, and sesame seeds. Return office visit in 6 weeks to see how she is doing TODAY'S VISIT Pt has been lost to follow up since 07/03/2023 when she was supposed to be seen in 4 weeks to evaluate how avoiding her food allergies impacted her diarrhea control. The patient called today for a sick visit because she has been feeling unwell with an upset stomach.BUt she says she is here for a follow up on her diarrhea which has continued despite her avoding all of the foods that we discovered she was allergic to. Unfortunately, if we had been able to control the diarrhea this could have been a mitigating factor in preventing her hospitalization. Hopefully we can go forward and do better. Will start her on Lotronex 0.5 mg twice a day. She continues to have very watery diarrhea that will happen as soon as she eats and also overnight keeping her up at about 03:00 consistently every night. Clearly this is not conducive to a good functional lifestyle. Return office visit in 6 weeks to evaluate her response to Lotronex 0.5 mg PFS Medical History (Updated 12/09/23 @ 13:51 by RIGO Gonzalez) Runny nose Smoking 1/2 pack a day or less Colon cancer screening SOB (shortness of breath) on exertion Cardiac pacemaker in situ Smoking greater than 30 pack years Diarrhea Osteopenia Screening for lung cancer Breast cancer screening Normal physical examination, routine Chronic diarrhea Skin tear of left upper arm without complication Laboratory tests ordered as part of a complete physical exam (CPE) Aortic stenosis Restless leg syndrome No pertinent family history Hyperlipidemia Chronic back pain Osteoarthritis GERD (gastroesophageal reflux disease) Anxiety and depression Type 2 diabetes mellitus Hypertension CKD (chronic kidney disease) stage 3, GFR 30-59 ml/min Hypothyroidism Cataracts, bilateral COPD (chronic obstructive pulmonary disease) Deafness in right ear Stroke Surgical History History of esophagogastroduodenoscopy (EGD) H/O colonoscopy History of tonsillectomy History of appendectomy H/O: hysterectomy History of back surgery H/O thyroidectomy H/O endarterectomy S/P cardiac pacemaker procedure Family History Mother Bladder cancer Brother Bladder cancer Social History Household Members: Children Housing: House Do you presently have visiting nurse or other home services: No Patient Tobacco Use Status: Current everyday Tobacco user Tobacco use type: Cigarette Cigarette Packs Per Day: 0.25 Cigarettes Per Day: 10 Years Smoked: 70 e-Cigarette/Vaping Use: Never Used Substance Use Type: Marijuana service: No Current occupational status: retired Cognitive needs: No Hearing needs: No Vision needs: No Review of Systems Const Denies fatigue, Denies fever(s), Denies night sweats, Denies poor appetite and Denies weight loss ENT Reports Normal hearing present, Denies dental pain, Denies dysphagia, Denies hearing loss, Denies mouth pain, Denies odynophagia, Denies throat swelling, Denies tongue swelling and Reports other (Dentition adequate) Card Reports syncope Resp Reports no additional complaints GI Details: Denies abdominal pain, Denies melena, Denies bloating, Denies hematochezia, Denies constipation, Denies GI cramping, Denies dysphagia, Denies excessive flatus, Denies early satiety, Reports heartburn, Reports diarrhea, Denies nausea, Denies odynophagia, Denies vomiting and Denies hematemesis Skin/Breast Denies pruritus, Denies lesions, Denies rash and Denies jaundice Neuro Reports Normal hearing present, Denies Abnormal speech present and Reports syncope Endo Denies fatigue Aller/Immun Denies throat swelling and Denies tongue swelling Physical Exam Vital Signs: BMI result Body Mass Index 22.9 Const General: cooperative, no acute distress, well developed and well groomed Nutritional Appearance: average body habitus and well nourished Orientation/consciousness: oriented to person, oriented to place and oriented to time Limitations: No language barrier HEENT Head: Yes normocephalic and Yes atraumatic Eyes General: appearance normal, both eyes and all related structures Pupils: Equal, round and reactive pupils present Neck Neck: Yes normal visual inspection and Yes no lymphadenopathy Thyroid: Thyroid normal Resp Effort & Inspection: normal respiratory effort and able to speak in complete sentences Auscultation: clear to auscultation bilaterally Cardio Rate: regular rate Rhythm: regular rhythm Heart sounds: Normal, physiologic split S2 sound present Peripheral pulses: radial pulses present and posterior tibial pulses present GI Inspection: No distended and No Abdominal panniculus present Palpation (GI): Soft to palpation, nontender, no guarding, not rigid and No hepatosplenomegaly present Percussion: Yes normal to percussion Auscultation: normal bowel sounds Rectal Exam - Female: deferred Skin General skin exam: no rashes or lesions noted, turgor normal, skin not dry, no jaundice, No spider nevi and no striae Rashes: no rashes Nails: normal Neuro General: oriented to person, oriented to place and oriented to time Cranial nerves: Yes Equal, round and reactive pupils present and Yes Normal hearing present Speech: No Abnormal speech present Extrem General: Yes normal to inspection, No clubbing, No cyanosis and No edema Psych Appearance: grossly normal and well kempt Mental Status: mental status grossly normal Speech and movement: Normal speech and movement present Affect: normal affect Attitude: cooperative Thought process: Normal thought process present and not confabulating Thought content: Normal thought content present Insight: Fair insight present (Psych) Judgement: Fair judgement present (Psych) Assessment & Plan Assessment & Plan (1) Periumbilical abdominal pain: Code(s): R10.33 - Periumbilical pain Category: Medical (2) GERD (gastroesophageal reflux disease): Code(s): K21.9 - Gastro-esophageal reflux disease without esophagitis Category: Medical (3) Wheat allergy: Comment: This appears to be some other component than gluten Code(s): Z91.018 - Allergy to other foods Category: Medical (4) Peanut allergy: Code(s): Z91.010 - Allergy to peanuts Category: Medical (5) Allergy to egg white: Code(s): Z91.012 - Allergy to eggs Category: Medical (6) Cow's milk allergy: Code(s): Z91.011 - Allergy to milk products Category: Medical (7) Allergy to sesame seed: Code(s): Z91.018 - Allergy to other foods Category: Medical (8) Irritable bowel syndrome with diarrhea: Code(s): K58.0 - Irritable bowel syndrome with diarrhea Category: Medical Plan Pt has been lost to follow up since 07/03/2023 when she was supposed to be seen in 4 weeks to evaluate how avoiding her food allergies impacted her diarrhea control. The patient called today for a sick visit because she has been feeling unwell with an upset stomach.BUt she says she is here for a follow up on her diarrhea which has continued despite her avoding all of the foods that we discovered she was allergic to. Unfortunately, if we had been able to control the diarrhea this could have been a mitigating factor in preventing her hospitalization. Hopefully we can go forward and do better. Will start her on Lotronex 0.5 mg twice a day. She continues to have very watery diarrhea that will happen as soon as she eats and also overnight keeping her up at about 03:00 consistently every night. Clearly this is not conducive to a good functional lifestyle. Return office visit in 6 weeks to evaluate her response to Lotronex 0.5 mg Medications: New alosetron (Lotronex) 0.5 mg PO BID 60 tabs 6RF K58.0 - Irritable bowel syndrome with diarrhea Coding Level of Care Code Est Pt Level 3 (38061) Diagnoses Periumbilical abdominal pain R10.33 GERD (gastroesophageal reflux disease) K21.9 Wheat allergy Z91.018 Peanut allergy Z91.010 Allergy to egg white Z91.012 Cow's milk allergy Z91.011 Allergy to sesame seed Z91.018 Irritable bowel syndrome with diarrhea K58.0
== END 2023-12-09 13:59 | disposition home or self-care (01) ==
PROVIDERS: PCP Nurse Practitioner Family; Visit Provider Nurse Practitioner
DX: R10.33 Periumbilical pain (principal); K21.9 Gastro-esophageal reflux disease without esophagitis; Z91.018 Allergy to other foods; Z91.010 Allergy to peanuts; Z91.012 Allergy to eggs; Z91.011 Allergy to milk products; K58.0 Irritable bowel syndrome with diarrhea
CPT/HCPCS: 99213

== ENCOUNTER → 2023-12-09 13:34 | Outpatient (BNVA) | payer MEDICARE, SELFPAY | PROVIDERS: PCP Nurse Practitioner Family; Visit Provider Nurse Practitioner | DX: R10.33 Periumbilical pain (principal); K21.9 Gastro-esophageal reflux disease without esophagitis; K58.0 Irritable bowel syndrome with diarrhea; Z91.018 Allergy to other foods; Z91.010 Allergy to peanuts; Z91.012 Allergy to eggs; Z91.011 Allergy to milk products | CPT/HCPCS: 99212 ==

== ENCOUNTER → 2023-12-11 23:59 | Outpatient (BNV) | payer MEDICARE, SELFPAY ==
--- NOTE | 2023-12-12 12:32 | MHC.OFFVIS ---
Intake Visit Reasons: Remote device check- Biotronik Allergies acetaminophen [From Percocet] Allergy (Intermediate, Verified 12/09/23 13:50) Itching oxycodone [From Percocet] Allergy (Intermediate, Verified 12/09/23 13:50) Itching Seasonal Allergies Allergy (Intermediate, Verified 12/09/23 13:50) Itchy Eyes ibuprofen [From Motrin] Allergy (Unknown, Verified 12/09/23 13:50) Swelling [facility] Medical History (Updated 12/12/23 @ 12:33 by Joseph Nicholas MD) Cardiac pacemaker in situ Runny nose Smoking 1/2 pack a day or less Colon cancer screening SOB (shortness of breath) on exertion Smoking greater than 30 pack years Diarrhea Osteopenia Screening for lung cancer Breast cancer screening Normal physical examination, routine Chronic diarrhea Skin tear of left upper arm without complication Laboratory tests ordered as part of a complete physical exam (CPE) Aortic stenosis Restless leg syndrome No pertinent family history Hyperlipidemia Chronic back pain Osteoarthritis GERD (gastroesophageal reflux disease) Anxiety and depression Type 2 diabetes mellitus Hypertension CKD (chronic kidney disease) stage 3, GFR 30-59 ml/min Hypothyroidism Cataracts, bilateral COPD (chronic obstructive pulmonary disease) Deafness in right ear Stroke Surgical History History of esophagogastroduodenoscopy (EGD) H/O colonoscopy History of tonsillectomy History of appendectomy H/O: hysterectomy History of back surgery H/O thyroidectomy H/O endarterectomy S/P cardiac pacemaker procedure Family History Mother Bladder cancer Brother Bladder cancer Social History Household Members: Children Housing: House Do you presently have visiting nurse or other home services: No Patient Tobacco Use Status: Current everyday Tobacco user Tobacco use type: Cigarette Cigarette Packs Per Day: 0.25 Cigarettes Per Day: 10 Years Smoked: 70 e-Cigarette/Vaping Use: Never Used Substance Use Type: Marijuana service: No Current occupational status: retired Cognitive needs: No Hearing needs: No Vision needs: No Office Procedures Cardiac Device Check Cardiac Device Check Details: Remote pacemaker report generated 12/11/2023. Pacemaker function is adequate. [id number] Cardiac Device Interrogation, pacemaker Procedure code (CPT) selection complete Assessment & Plan Assessment & Plan (1) Cardiac pacemaker in situ: Comment: Biotronik dual-chamber pacemaker in place, placed in 2016 Code(s): Z95.0 - Presence of cardiac pacemaker Category: Medical Plan: See above Coding Level of Care Code Procedure Only Diagnoses Cardiac pacemaker in situ Z95.0 CPT Codes Cardiac Device Check - Cardiac Device 12: [id number] Cardiac Device Interrogation, pacemaker ([id number])
== END ==
PROVIDERS: PCP Nurse Practitioner Family; Visit Provider Internal Medicine Cardiovascular Disease
DX: Z45.018 Encounter for adjustment and management of other part of cardiac pacemaker (principal)
CPT/HCPCS: 93294

== ENCOUNTER 2024-01-23 09:56 | Outpatient (AMB) | payer MEDICARE, SELFPAY ==
--- NOTE | 2024-01-23 09:58 | MHC.OFFVIS ---
Vital Signs 01/23/24 09:59 Height 5 ft 4 in Weight 134 lb 7.712 oz BMI 23.1 BP 182/84 H Blood Pressure Location Lt brachial Position Sitting Pulse 78 Intake Visit Reasons: 6 week IBS, Food Allergies Intake Note: Pallavi returns to in office follow up of IBS. CC: Patient states that she was seen at [facility] last week d/t epigastric pain, heartburn, and vomiting. Patient states that she feels fine now but still having diarrhea and reports seeing blood in the stool yesterday twice. Patient reports that she d/c the alosetron because she was having fecal incontinence. 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 Accompanied by: Self / Same As Patient Allergies acetaminophen [From Percocet] Allergy (Intermediate, Verified 01/23/24 10:04) Itching oxycodone [From Percocet] Allergy (Intermediate, Verified 01/23/24 10:04) Itching Seasonal Allergies Allergy (Intermediate, Verified 01/23/24 10:04) Itchy Eyes ibuprofen [From Motrin] Allergy (Unknown, Verified 01/23/24 10:04) Swelling HPI HPI 6 week IBS, Food Allergies: Details: Assessment & Plan (1) Periumbilical abdominal pain: Code(s): R10.33 - Periumbilical pain Category: Medical (2) GERD (gastroesophageal reflux disease): Code(s): K21.9 - Gastro-esophageal reflux disease without esophagitis Category: Medical (3) Wheat allergy: Comment: This appears to be some other component than gluten Code(s): Z91.018 - Allergy to other foods Category: Medical (4) Peanut allergy: Code(s): Z91.010 - Allergy to peanuts Category: Medical (5) Allergy to egg white: Code(s): Z91.012 - Allergy to eggs Category: Medical (6) Cow's milk allergy: Code(s): Z91.011 - Allergy to milk products Category: Medical (7) Allergy to sesame seed: Code(s): Z91.018 - Allergy to other foods Category: Medical (8) Irritable bowel syndrome with diarrhea: Code(s): K58.0 - Irritable bowel syndrome with diarrhea Category: Medical Plan Pt has been lost to follow up since 07/03/2023 when she was supposed to be seen in 4 weeks to evaluate how avoiding her food allergies impacted her diarrhea control. The patient called today for a sick visit because she has been feeling unwell with an upset stomach.BUt she says she is here for a follow up on her diarrhea which has continued despite her avoiding all of the foods that we discovered she was allergic to. Unfortunately, if we had been able to control the diarrhea this could have been a mitigating factor in preventing her hospitalization. Hopefully we can go forward and do better. Will start her on Lotronex 0.5 mg twice a day. She continues to have very watery diarrhea that will happen as soon as she eats and also overnight keeping her up at about 03:00 consistently every night. Clearly this is not conducive to a good functional lifestyle. Return office visit in 6 weeks to evaluate her response to Lotronex 0.5 mg Medications: New alosetron (Lotronex) 0.5 mg PO BID 60 tabs 6RF K58.0 - Irritable bowel syndrome with diarrhea TODAY'S VISIT She had a very bad incident of severe epigastric pain and presented to the [place] emergency department. There she was started on sucralfate, pantoprazole, and famotidine. This has helped her stomach quite a bit. She received the Lotronex but says it was ?a disaster.? Apparently worsened her diarrhea. We can not use Viberzi because of her renal status so I think we will increase the Carafate to 4 tabs and she is educated to take it at noon so it does not block absorption of any of her other critical chronic medications. She is agreeable to this. With discussion I discovered that she was not completely aware of all of the foods affected by her food allergies. For instance she was not aware of how prevalent eggs were in many good, wheat is not just in breads, and particularly milk and cheeses. I am going to print her list to try to help her know what she can and can not eat since these foods or so prevalent in so many common available products. She asks about Crohn's disease but we did test her for this her fecal calprotectin was not elevated and she had a colonoscopy 4 years ago in [place] that was completely negative. She wants to know if I think there is anything else wrong with her and I really do not since we have done extensive testing. At this point she is going to work harder to try to avoid the foods that are triggers for her diarrhea and we will try to titrate her with Carafate and the above medications. Return office visit in 6 weeks. Dietary information printed from various sources on wheat and milk allergies. [facility] Medical History (Updated 12/12/23 @ 12:33 by Joseph Nicholas MD) Cardiac pacemaker in situ Runny nose Smoking 1/2 pack a day or less Colon cancer screening SOB (shortness of breath) on exertion Smoking greater than 30 pack years Diarrhea Osteopenia Screening for lung cancer Breast cancer screening Normal physical examination, routine Chronic diarrhea Skin tear of left upper arm without complication Laboratory tests ordered as part of a complete physical exam (CPE) Aortic stenosis Restless leg syndrome No pertinent family history Hyperlipidemia Chronic back pain Osteoarthritis GERD (gastroesophageal reflux disease) Anxiety and depression Type 2 diabetes mellitus Hypertension CKD (chronic kidney disease) stage 3, GFR 30-59 ml/min Hypothyroidism Cataracts, bilateral COPD (chronic obstructive pulmonary disease) Deafness in right ear Stroke Surgical History History of esophagogastroduodenoscopy (EGD) H/O colonoscopy History of tonsillectomy History of appendectomy H/O: hysterectomy History of back surgery H/O thyroidectomy H/O endarterectomy S/P cardiac pacemaker procedure Family History Mother Bladder cancer Brother Bladder cancer Social History Household Members: Children Housing: House Do you presently have visiting nurse or other home services: No Patient Tobacco Use Status: Current everyday Tobacco user Tobacco use type: Cigarette Cigarette Packs Per Day: 0.25 Cigarettes Per Day: 10 Years Smoked: 70 e-Cigarette/Vaping Use: Never Used Substance Use Type: Marijuana service: No Current occupational status: retired Cognitive needs: No Hearing needs: No Vision needs: No Review of Systems Const Denies fatigue, Denies fever(s), Denies night sweats, Denies poor appetite and Denies weight loss ENT Reports Normal hearing present, Denies dental pain, Denies dysphagia, Denies hearing loss, Denies mouth pain, Denies odynophagia, Denies throat swelling, Denies tongue swelling and Reports other (Dentition adequate) Card Reports no additional complaints Resp Reports no additional complaints GI Details: Reports abdominal pain, Denies melena, Reports bloating, Denies hematochezia, Denies constipation, Reports GI cramping, Denies dysphagia, Denies excessive flatus, Denies early satiety, Reports heartburn, Reports diarrhea, Reports nausea, Denies odynophagia, Denies vomiting and Denies hematemesis Skin/Breast Denies pruritus, Denies lesions, Denies rash and Denies jaundice Neuro Reports Normal hearing present and Denies Abnormal speech present Endo Denies fatigue Aller/Immun Denies throat swelling and Denies tongue swelling Physical Exam Vital Signs: Last Vital Signs Pulse 78 01/23/24 09:59 BP 182/84 H 01/23/24 09:59 BMI result Body Mass Index 23.1 Const General: cooperative, no acute distress, well developed and well groomed Nutritional Appearance: average body habitus and well nourished Orientation/consciousness: oriented to person, oriented to place and oriented to time Limitations: No language barrier HEENT Head: Yes normocephalic and Yes atraumatic Eyes General: appearance normal, both eyes and all related structures Pupils: Equal, round and reactive pupils present Neck Neck: Yes normal visual inspection and Yes no lymphadenopathy Thyroid: Thyroid normal Resp Effort & Inspection: normal respiratory effort and able to speak in complete sentences Auscultation: clear to auscultation bilaterally Cardio Rate: regular rate Rhythm: regular rhythm Heart sounds: Normal, physiologic split S2 sound present Peripheral pulses: radial pulses present and posterior tibial pulses present GI Inspection: No distended and No Abdominal panniculus present Palpation (GI): Soft to palpation, nontender, no guarding, not rigid and No hepatosplenomegaly present Percussion: Yes normal to percussion Auscultation: normal bowel sounds Rectal Exam - Female: deferred Skin General skin exam: no rashes or lesions noted, turgor normal, skin not dry, no jaundice, No spider nevi and no striae Rashes: no rashes Nails: normal Neuro General: oriented to person, oriented to place and oriented to time Cranial nerves: Yes Equal, round and reactive pupils present and Yes Normal hearing present Speech: No Abnormal speech present Extrem General: Yes normal to inspection, No clubbing, No cyanosis and No edema Psych Appearance: grossly normal and well kempt Mental Status: mental status grossly normal Speech and movement: Normal speech and movement present Affect: normal affect Attitude: cooperative Thought process: Normal thought process present and not confabulating Thought content: Normal thought content present Insight: Limited insight present (Psych) Judgement: Limited judgement present (Psych) Assessment & Plan Assessment & Plan (1) Irritable bowel syndrome with diarrhea: Code(s): K58.0 - Irritable bowel syndrome with diarrhea Category: Medical (2) Wheat allergy: Comment: This appears to be some other component than gluten Code(s): Z91.018 - Allergy to other foods Category: Medical (3) Peanut allergy: Code(s): Z91.010 - Allergy to peanuts Category: Medical (4) Allergy to egg white: Code(s): Z91.012 - Allergy to eggs Category: Medical (5) GERD (gastroesophageal reflux disease): Code(s): K21.9 - Gastro-esophageal reflux disease without esophagitis Category: Medical (6) Cow's milk allergy: Code(s): Z91.011 - Allergy to milk products Category: Medical (7) Allergy to sesame seed: Code(s): Z91.018 - Allergy to other foods Category: Medical Plan She had a very bad incident of severe epigastric pain and presented to the [place] emergency department. There she was started on sucralfate, pantoprazole, and famotidine. This has helped her stomach quite a bit. She received the Lotronex but says it was ?a disaster.? Apparently worsened her diarrhea. We can not use Viberzi because of her renal status so I think we will increase the Carafate to 4 tabs and she is educated to take it at noon so it does not block absorption of any of her other critical chronic medications. She is agreeable to this. With discussion I discovered that she was not completely aware of all of the foods affected by her food allergies. For instance she was not aware of how prevalent eggs were in many good, wheat is not just in breads, and particularly milk and cheeses. I am going to print her list to try to help her know what she can and can not eat since these foods or so prevalent in so many common available products. She asks about Crohn's disease but we did test her for this her fecal calprotectin was not elevated and she had a colonoscopy 4 years ago in [place] that was completely negative. She wants to know if I think there is anything else wrong with her and I really do not since we have done extensive testing. At this point she is going to work harder to try to avoid the foods that are triggers for her diarrhea and we will try to titrate her with Carafate and the above medications. Return office visit in 6 weeks. Dietary information printed from various sources on wheat and milk allergies. Medications: New sucralfate 4 grams (4 x 1 gram) PO QNOON 120 tabs 6RF K21.9 - Gastro-esophageal reflux disease without esophagitis, K58.0 - Irritable bowel syndrome with diarrhea, Z91.010 - Allergy to peanuts, Z91.011 - Allergy to milk products, Z91.012 - Allergy to eggs, Z91.018 - Allergy to other foods famotidine 20 mg PO DAILY 30 tabs 6RF pantoprazole 40 mg PO BID 60 tabs 6RF Discontinued alosetron (Lotronex) Discontinued Reason: Doctor's Order 0.5 mg PO BID 60 tabs 6RF K58.0 - Irritable bowel syndrome with diarrhea Coding Level of Care Code Est Pt Level 4 (10409) Diagnoses Irritable bowel syndrome with diarrhea K58.0 Wheat allergy Z91.018 Peanut allergy Z91.010 Allergy to egg white Z91.012 GERD (gastroesophageal reflux disease) K21.9 Cow's milk allergy Z91.011 Allergy to sesame seed Z91.018 Time Spent (min) 36
[2024-01-23 09:59] VITALS: BP 182/84; PULSE 78; BMI 23.1
== END 2024-01-23 10:37 | disposition home or self-care (01) ==
PROVIDERS: PCP Nurse Practitioner Family; Visit Provider Nurse Practitioner
DX: K58.0 Irritable bowel syndrome with diarrhea (principal); Z91.018 Allergy to other foods; Z91.010 Allergy to peanuts; Z91.012 Allergy to eggs; K21.9 Gastro-esophageal reflux disease without esophagitis; Z91.011 Allergy to milk products
CPT/HCPCS: 99214

== ENCOUNTER → 2024-01-23 09:56 | Outpatient (BNVA) | payer MEDICARE, SELFPAY | PROVIDERS: PCP Nurse Practitioner Family; Visit Provider Nurse Practitioner | DX: K58.0 Irritable bowel syndrome with diarrhea (principal); K21.9 Gastro-esophageal reflux disease without esophagitis; Z91.018 Allergy to other foods; Z91.010 Allergy to peanuts; Z91.012 Allergy to eggs; Z91.011 Allergy to milk products | CPT/HCPCS: 99212 ==

== ENCOUNTER 2024-01-29 10:34 | Outpatient (AMB) | payer MEDICARE, SELFPAY ==
--- NOTE | 2024-01-29 10:38 | MHC.PC.OV ---
Vital Signs 01/29/24 10:56 Height 5 ft 4 in Weight 135 lb 2 oz BMI 23.2 BP 150/60 H Blood Pressure Location Lt brachial Position Sitting Respiration 16 Pulse 70 Pulse Source Pulse Oximeter Temp 98.0 F Temp Source Oral Pulse Oximetry (%) 97 Oxygen Delivery Method Room Air Intake Visit Reasons: 1 mos HTN , Anemia Intake Note: patient here for 1 month HTN and anemia. 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 Required: No Is last menstrual period known: No Post menopausal: No Patient : No Allergies acetaminophen [From Percocet] Allergy (Intermediate, Verified 01/29/24 10:58) Itching oxycodone [From Percocet] Allergy (Intermediate, Verified 01/29/24 10:58) Itching Seasonal Allergies Allergy (Intermediate, Verified 01/29/24 10:58) Itchy Eyes ibuprofen [From Motrin] Allergy (Unknown, Verified 01/29/24 10:58) Swelling Medication List - Last Reconciled 01/29/24 by Jaylen Taylor CNP acetaminophen ER (Tylenol 8 Hour) 650 mg PO Q8H PRN amlodipine 10 mg PO BEDTIME aspirin (Adult Low Dose Aspirin) 81 mg PO DAILY atorvastatin 80 mg PO BEDTIME 30 days kfphtrbfaq-tdzqnnlk-mmbjmxptro 160-9-4.8 mcg/actuation (Breztri Aerosphere) 1 inh inhalation BID buspirone 7.5 mg PO BID 30 days cetirizine (Zyrtec) 10 mg PO DAILY 30 days cilostazol 100 mg PO BID 30 days clopidogrel 75 mg PO DAILY 30 days diphenhydramine-acetaminophen 25-500 mg (Acetaminophen PM) 2 tabs PO BEDTIME ezetimibe 10 mg PO DAILY famotidine 20 mg PO DAILY ferrous sulfate 325 mg PO DAILY folic acid 0.4 mg PO DAILY 30 days gabapentin 400 mg PO TID levothyroxine 137 mcg PO DAILY 30 days lisinopril 2.5 mg PO BEDTIME loperamide (Anti-Diarrheal (loperamide)) 4 mg PO BEDTIME PRN mecobalamin (vitamin B12) 1,000 mcg PO DAILY metformin 500 mg PO BID omeprazole 20 mg PO DAILY pantoprazole 40 mg PO BID pramipexole 0.25 mg PO BEDTIME psyllium husk (Metamucil) 1 tbsp PO DAILY sertraline 100 mg PO BID sucralfate 4 grams (4 x 1 gram) PO QNOON Tobacco use date assessed: 01/29/24 Fall risk assessment: No Falls in past year Last assessed Fall Risk: 01/29/24 Dental Screening Dental Screen Date: 01/29/24 Did you have a dental visit in the last 12 months?: No Did you have a dental problem in the last 6 months where you did not have access to dental care?: No Was dental information given to patient?: Patient declined HPI HPI Comments History of Present Illness Details 78-year-old female presents for hypertension and anemia follow-up She admits to taking her medications as prescribed without adverse reactions She notes that her senior field 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 She notes that she does is not currently being followed by an senior field service engineer and does not recall who she followed She was hospitalized at [facility] between 01/09/2024 and 01/12/2024 and treated for epigastric pain/chest pain. She notes that she had the pain for 1 week before she went to the ED. She notes that her symptoms completely resolved since discharged. She was seen by [facility] gastroenterology on 01/23/2024 She offers no complaints and denies acute symptoms at this time [facility] Medical History (Updated 12/12/23 @ 12:33 by Joseph Nicholas MD) Cardiac pacemaker in situ Runny nose Smoking 1/2 pack a day or less Colon cancer screening SOB (shortness of breath) on exertion Smoking greater than 30 pack years Diarrhea Osteopenia Screening for lung cancer Breast cancer screening Normal physical examination, routine Chronic diarrhea Skin tear of left upper arm without complication Laboratory tests ordered as part of a complete physical exam (CPE) Aortic stenosis Restless leg syndrome No pertinent family history Hyperlipidemia Chronic back pain Osteoarthritis GERD (gastroesophageal reflux disease) Anxiety and depression Type 2 diabetes mellitus Hypertension CKD (chronic kidney disease) stage 3, GFR 30-59 ml/min Hypothyroidism Cataracts, bilateral COPD (chronic obstructive pulmonary disease) Deafness in right ear Stroke Surgical History History of esophagogastroduodenoscopy (EGD) H/O colonoscopy History of tonsillectomy History of appendectomy H/O: hysterectomy History of back surgery H/O thyroidectomy H/O endarterectomy S/P cardiac pacemaker procedure Family History Mother Bladder cancer Brother Bladder cancer Social History Household Members: Children Housing: House Do you presently have visiting nurse or other home services: No Patient Tobacco Use Status: Current everyday Tobacco user Tobacco use type: Cigarette Cigarette Packs Per Day: 0.25 Cigarettes Per Day: 10 Years Smoked: 70 e-Cigarette/Vaping Use: Never Used Substance Use Type: Marijuana service: No Current occupational status: retired Cognitive needs: No Hearing needs: No Vision needs: No Questionnaire Thrive Questionnaire Date Thrive assessed: 11/19/23 MARCLEA-7 AMB Questionnaire MARCELA-7 Date MARCELA - 7 assessed: 11/18/23 Source: Developed by Drs. Bonifacio Bethea, Danni Villa, Rico Wilcox and colleagues, with an educational saranya from [employer]. Review of Systems Const Details: Const Denies chills, Denies fatigue, Denies fever(s), Denies headache(s) and Denies weakness ENT Denies dizziness and Denies headache(s) Card Denies chest pain, Denies lightheadedness, Denies dyspnea and Denies other (Palpitations) Resp Denies cough, Denies dyspnea, Denies wheezing and Denies other ( shortness of breath) GI Denies abdominal pain, Denies melena, Denies hematochezia, Denies change in bowel habits, Denies dyspepsia and Denies nausea Denies hematuria and Denies dysuria Musc Denies abnormal gait, Denies myalgias, Denies arthralgias, Denies numbness and Denies tingling Skin/Breast Denies rash, Denies unusual bruising and Denies wounds Neuro Denies abnormal gait, Denies dizziness, Denies headache(s), Denies memory loss, Denies numbness, Denies Sensory deficit (Neuro), Denies tingling and Denies weakness Psych Denies anxiety, Denies depression, Denies memory loss Endo Denies cold intolerance, Denies fatigue, Denies heat intolerance, Denies polydipsia and Denies polyuria Aller/Immun Denies wheezing Physical exam (Primary Care) Tobacco/Smoking Status: Tobacco use Status Tobacco use date assessed 12/02/23 01/29/24 10:40 Patient Tobacco Use Status Current everyday Tobacco 01/29/24 10:40 Tobacco use type Cigarette 01/29/24 10:40 e-Cigarette/Vaping Use Never Used 01/29/24 10:40 Thrive Assessment: Date of Thrive Assessment Date Thrive assessed 11/19/23 01/29/24 10:40 Const Other: General: no acute distress and well developed Nutritional Appearance: well nourished Orientation/consciousness: patient oriented x3 [facility] Head: Yes normocephalic and Yes atraumatic Eyes General: appearance normal, both eyes and all related structures Pupils: Equal, round and reactive pupils present EOM: EOMs intact bilaterally Resp Effort & Inspection: normal respiratory effort Auscultation: clear to auscultation bilaterally Cardio Rate: regular rate Rhythm: regular rhythm Heart sounds: S1 normal heart sound present, S2 normal heart sound present, no gallops, no murmurs and no rubs GI Palpation (GI): No Abdominal aortic bruit present, Soft to palpation, nontender, No hepatosplenomegaly present and No Rebound tenderness present Auscultation: normal bowel sounds General: Yes no CVA tenderness Back/Spine/Pelvis Back: no CVA tenderness Cervical Spine: cervical ROM normal and No Cervical spine tenderness Thoracic/Lumbar Spine: thoraco-lumbar ROM normal, No pain with thoraco-lumbar ROM, No thoracic spinal tenderness and No lumbar spinal tenderness Extrem General: Yes normal to inspection, No edema and No calf tenderness Skin General: warm and dry. Normal skin color. Normal skin turgor Lesions: no lesions Rashes: no rashes Trauma: no lacerations or abrasions Wounds: no wounds Nails: normal Neuro General: patient oriented x3, gait normal and no focal neuro deficit Cranial nerves: Yes Equal, round and reactive pupils present Cognition (Neuro): normal cognition Gait exam (Neuro): Normal gait present Sensory Exam: No Sensory deficit (Neuro) Psych Appearance: grossly normal Affect: normal affect Attitude: cooperative Thought process: Normal thought process present Results AMB Hemoglobin A1c AMB Hemoglobin A1c 6.1 % Last Edit by Vandana Wilkinson on 01/29/24 12:04 Assessment and Plan Assessment & Plan (1) Hypotension: Code(s): I95.9 - Hypotension, unspecified Plan: Blood pressure is 160/60, above goal of less than 130/80 Will increase Lisinopril to 5mg daily. Advised to take as prescribed Continue to take amlodipine 10 mg daily Low sodium diet encouraged Follow up for a nurse visit in 1 week and with PCP in 2 weeks Return with symptoms or concerns Verbalized understanding and agreed with treatment plan (2) Anemia: Code(s): D64.9 - Anemia, unspecified Plan: Recent RBC and H&H slightly low, 3.77 and 11.4/35.2 respectively MCV is normal Iron saturation is slightly low, 12 Continue to take ferrous sulfate as prescribed Will recheck RBC hand iron studies and check vitamin B12 and ferrous sulfate in a month Verbalized understanding and agreed with the plan (3) Type 2 diabetes mellitus: Code(s): E11.9 - Type 2 diabetes mellitus without complications Qualifiers: Diabetes mellitus complication status: without complication Plan: Diet controlled A1c today is 6.1% ADA diet and routine exercise encouraged Will monitor periodically Verbalized understanding and agreed with the plan Orders: Orders IRON PROFILE Today D64.9 - Anemia, unspecified Complete Blood Count no Diff Today D64.9 - Anemia, unspecified Vitamin B12 and Folate Today D64.9 - Anemia, unspecified AMB Hemoglobin A1c Today Z13.9 - Encounter for screening, unspecified Medications: New lisinopril 5 mg PO DAILY 30 days 30 tabs 3RF Coding Level of Care Code Est Pt Level 4 (31949) Diagnoses Hypotension I95.9 Anemia D64.9 Type 2 diabetes mellitus E11.9 Diabetes mellitus complication status: without complication
[2024-01-29 10:56] VITALS: BP 150/60; PULSE 70; RESP 16; TEMP 36.7; O2SAT 97; BMI 23.2
== END 2024-01-29 11:51 | disposition home or self-care (01) ==
PROVIDERS: PCP Nurse Practitioner Family; Visit Provider Nurse Practitioner Family
DX: I95.9 Hypotension, unspecified (principal); D64.9 Anemia, unspecified; E11.9 Type 2 diabetes mellitus without complications; Z13.9 Encounter for screening, unspecified

== ENCOUNTER → 2024-01-29 10:34 | Outpatient (BNVA) | payer MEDICARE, SELFPAY | PROVIDERS: PCP Nurse Practitioner Family; Visit Provider Nurse Practitioner Family | DX: I95.9 Hypotension, unspecified (principal); D64.9 Anemia, unspecified; E11.9 Type 2 diabetes mellitus without complications | CPT/HCPCS: 83036; 99212 ==

== ENCOUNTER → 2024-02-05 09:40 | Outpatient (BNVA) | payer MEDICARE, SELFPAY | PROVIDERS: PCP Nurse Practitioner Family; Visit Provider Nurse Practitioner Family ==

== ENCOUNTER → 2024-02-09 23:59 | Outpatient (BNV) | payer MEDICARE, SELFPAY ==
--- NOTE | 2024-02-10 12:42 | MHC.OFFVIS ---
Intake Visit Reasons: Remote device check- Biotronik Allergies acetaminophen [From Percocet] Allergy (Intermediate, Verified 01/29/24 10:58) Itching oxycodone [From Percocet] Allergy (Intermediate, Verified 01/29/24 10:58) Itching Seasonal Allergies Allergy (Intermediate, Verified 01/29/24 10:58) Itchy Eyes ibuprofen [From Motrin] Allergy (Unknown, Verified 01/29/24 10:58) Swelling [facility] Medical History (Updated 12/12/23 @ 12:33 by Joseph Nicholas MD) Cardiac pacemaker in situ Runny nose Smoking 1/2 pack a day or less Colon cancer screening SOB (shortness of breath) on exertion Smoking greater than 30 pack years Diarrhea Osteopenia Screening for lung cancer Breast cancer screening Normal physical examination, routine Chronic diarrhea Skin tear of left upper arm without complication Laboratory tests ordered as part of a complete physical exam (CPE) Aortic stenosis Restless leg syndrome No pertinent family history Hyperlipidemia Chronic back pain Osteoarthritis GERD (gastroesophageal reflux disease) Anxiety and depression Type 2 diabetes mellitus Hypertension CKD (chronic kidney disease) stage 3, GFR 30-59 ml/min Hypothyroidism Cataracts, bilateral COPD (chronic obstructive pulmonary disease) Deafness in right ear Stroke Surgical History History of esophagogastroduodenoscopy (EGD) H/O colonoscopy History of tonsillectomy History of appendectomy H/O: hysterectomy History of back surgery H/O thyroidectomy H/O endarterectomy S/P cardiac pacemaker procedure Family History Mother Bladder cancer Brother Bladder cancer Social History Household Members: Children Housing: House Do you presently have visiting nurse or other home services: No Patient Tobacco Use Status: Current everyday Tobacco user Tobacco use type: Cigarette Cigarette Packs Per Day: 0.25 Cigarettes Per Day: 10 Years Smoked: 70 e-Cigarette/Vaping Use: Never Used Substance Use Type: Marijuana service: No Current occupational status: retired Cognitive needs: No Hearing needs: No Vision needs: No Office Procedures Cardiac Device Check Cardiac Device Check Details: Remote pacemaker report generated 02/09/2024. Pacemaker function is adequate [id number] Cardiac Device Interrogation, pacemaker Procedure code (CPT) selection complete Assessment & Plan Assessment & Plan (1) Cardiac pacemaker in situ: Comment: Biotronik dual-chamber pacemaker in place, placed in 2016 Code(s): Z95.0 - Presence of cardiac pacemaker Category: Medical Plan: See above Coding Level of Care Code Procedure Only Diagnoses Cardiac pacemaker in situ Z95.0 CPT Codes Cardiac Device Check - Cardiac Device 12: [id number] Cardiac Device Interrogation, pacemaker ([id number])
== END ==
PROVIDERS: PCP Nurse Practitioner Family; Visit Provider Internal Medicine Cardiovascular Disease
DX: Z45.018 Encounter for adjustment and management of other part of cardiac pacemaker (principal)
CPT/HCPCS: 93294

== ENCOUNTER 2024-02-12 10:32 | Outpatient (AMB) | payer MEDICARE, SELFPAY ==
--- NOTE | 2024-02-12 10:34 | A.OFFVIS_ITS ---
Intake Visit Reasons: Hypertension Intake Note: patient here to follow up on HTN [employer] Required: No Allergies acetaminophen [From Percocet] Allergy (Intermediate, Verified 01/29/24 10:58) Itching oxycodone [From Percocet] Allergy (Intermediate, Verified 01/29/24 10:58) Itching Seasonal Allergies Allergy (Intermediate, Verified 01/29/24 10:58) Itchy Eyes ibuprofen [From Motrin] Allergy (Unknown, Verified 01/29/24 10:58) Swelling PFSH Medical History (Updated 12/12/23 @ 12:33 by Joseph Nicholas MD) Cardiac pacemaker in situ Runny nose Smoking 1/2 pack a day or less Colon cancer screening SOB (shortness of breath) on exertion Smoking greater than 30 pack years Diarrhea Osteopenia Screening for lung cancer Breast cancer screening Normal physical examination, routine Chronic diarrhea Skin tear of left upper arm without complication Laboratory tests ordered as part of a complete physical exam (CPE) Aortic stenosis Restless leg syndrome No pertinent family history Hyperlipidemia Chronic back pain Osteoarthritis GERD (gastroesophageal reflux disease) Anxiety and depression Type 2 diabetes mellitus Hypertension CKD (chronic kidney disease) stage 3, GFR 30-59 ml/min Hypothyroidism Cataracts, bilateral COPD (chronic obstructive pulmonary disease) Deafness in right ear Stroke Surgical History History of esophagogastroduodenoscopy (EGD) H/O colonoscopy History of tonsillectomy History of appendectomy H/O: hysterectomy History of back surgery H/O thyroidectomy H/O endarterectomy S/P cardiac pacemaker procedure Family History Mother Bladder cancer Brother Bladder cancer Social History Household Members: Children Housing: House Do you presently have visiting nurse or other home services: No Patient Tobacco Use Status: Current everyday Tobacco user Tobacco use type: Cigarette Cigarette Packs Per Day: 0.25 Cigarettes Per Day: 10 Years Smoked: 70 e-Cigarette/Vaping Use: Never Used Substance Use Type: Marijuana service: No Current occupational status: retired Cognitive needs: No Hearing needs: No Vision needs: No Coding
--- NOTE | 2024-02-12 10:38 | MHC.PC.OV ---
Vital Signs 02/12/24 10:42 Height 5 ft 4 in Weight 133 lb 6 oz BMI 22.9 BP 138/60 Blood Pressure Location Rt brachial Position Sitting Respiration 16 Pulse 71 Pulse Source Pulse Oximeter Temp 97.6 F Temp Source Oral Pulse Oximetry (%) 100 Oxygen Delivery Method Room Air Intake Visit Reasons: Hypertension Intake Note: patient here to follow up on HTN Medical Lead Required: No Is last menstrual period known: No Post menopausal: No Patient : No Allergies acetaminophen [From Percocet] Allergy (Intermediate, Verified 02/12/24 10:50) Itching oxycodone [From Percocet] Allergy (Intermediate, Verified 02/12/24 10:50) Itching Seasonal Allergies Allergy (Intermediate, Verified 02/12/24 10:50) Itchy Eyes ibuprofen [From Motrin] Allergy (Unknown, Verified 02/12/24 10:50) Swelling Medication List - Last Reconciled 02/12/24 by Jaylen Taylor CNP acetaminophen ER (Tylenol 8 Hour) 650 mg PO Q8H PRN amlodipine 10 mg PO BEDTIME aspirin (Adult Low Dose Aspirin) 81 mg PO DAILY atorvastatin 80 mg PO BEDTIME 30 days [id number] 160-9-4.8 mcg/actuation (Breztri Aerosphere) 1 inh inhalation BID buspirone 7.5 mg PO BID 30 days cetirizine (Zyrtec) 10 mg PO DAILY 30 days cilostazol 100 mg PO BID 30 days clopidogrel 75 mg PO DAILY 30 days diphenhydramine-acetaminophen 25-500 mg (Acetaminophen PM) 2 tabs PO BEDTIME ezetimibe 10 mg PO DAILY famotidine 20 mg PO DAILY ferrous sulfate 325 mg PO DAILY folic acid 0.4 mg PO DAILY 30 days gabapentin 400 mg PO TID levothyroxine 137 mcg PO DAILY 30 days lisinopril 5 mg PO DAILY 30 days loperamide (Anti-Diarrheal (loperamide)) 4 mg PO BEDTIME PRN mecobalamin (vitamin B12) 1,000 mcg PO DAILY omeprazole 20 mg PO DAILY pantoprazole 40 mg PO BID pramipexole 0.25 mg PO BEDTIME psyllium husk (Metamucil) 1 tbsp PO DAILY sertraline 100 mg PO BID sucralfate 4 grams (4 x 1 gram) PO QNOON Tobacco use date assessed: 02/12/24 Fall risk assessment: No Falls in past year Last assessed Fall Risk: 02/12/24 Dental Screening Dental Screen Date: 02/12/24 Did you have a dental visit in the last 12 months?: No Did you have a dental problem in the last 6 months where you did not have access to dental care?: No Was dental information given to patient?: Patient declined HPI HPI Comments History of Present Illness Details 78-year-old female presents for hypertension follow-up She admits to taking her medications as prescribed without adverse reactions She is followed by [facility] gastroenterology. She notes that her diarrhea has significantly reduced She offers no complaints and denies acute symptoms at this time [facility] Medical History (Updated 02/12/24 @ 11:05 by Jaylen Taylor CNP) Laboratory tests ordered as part of a complete physical exam (CPE) Cardiac pacemaker in situ Runny nose Smoking 1/2 pack a day or less Colon cancer screening SOB (shortness of breath) on exertion Smoking greater than 30 pack years Diarrhea Osteopenia Screening for lung cancer Breast cancer screening Normal physical examination, routine Chronic diarrhea Skin tear of left upper arm without complication Aortic stenosis Restless leg syndrome No pertinent family history Hyperlipidemia Chronic back pain Osteoarthritis GERD (gastroesophageal reflux disease) Anxiety and depression Type 2 diabetes mellitus Hypertension CKD (chronic kidney disease) stage 3, GFR 30-59 ml/min Hypothyroidism Cataracts, bilateral COPD (chronic obstructive pulmonary disease) Deafness in right ear Stroke Surgical History History of esophagogastroduodenoscopy (EGD) H/O colonoscopy History of tonsillectomy History of appendectomy H/O: hysterectomy History of back surgery H/O thyroidectomy H/O endarterectomy S/P cardiac pacemaker procedure Family History Mother Bladder cancer Brother Bladder cancer Social History Household Members: Children Housing: House Do you presently have visiting nurse or other home services: No Patient Tobacco Use Status: Current everyday Tobacco user Tobacco use type: Cigarette Cigarette Packs Per Day: 0.25 Cigarettes Per Day: 10 Years Smoked: 70 e-Cigarette/Vaping Use: Never Used Substance Use Type: Marijuana service: No Current occupational status: retired Cognitive needs: No Hearing needs: No Vision needs: No Questionnaire Thrive Questionnaire Date Thrive assessed: 11/19/23 MARCELA-7 AMB Questionnaire MARCELA-7 Date MARCELA - 7 assessed: 11/18/23 Source: Developed by Drs. Bonifacio Bethea, Danni Villa, Rico Wilcox and colleagues, with an educational saranya from [email or web address]. Review of Systems Const Details: Const Denies chills, Denies fatigue, Denies fever(s), Denies headache(s) and Denies weakness ENT Denies dizziness and Denies headache(s) Card Denies chest pain, Denies lightheadedness, Denies dyspnea and Denies other (Palpitations) Resp Denies cough, Denies dyspnea, Denies wheezing and Denies other ( shortness of breath) GI Denies abdominal pain, Denies melena, Denies hematochezia, Denies change in bowel habits, Denies dyspepsia and Denies nausea Denies hematuria and Denies dysuria Musc Denies abnormal gait, Denies myalgias, Denies arthralgias, Denies numbness and Denies tingling Skin/Breast Denies rash, Denies unusual bruising and Denies wounds Neuro Denies abnormal gait, Denies dizziness, Denies headache(s), Denies memory loss, Denies numbness, Denies Sensory deficit (Neuro), Denies tingling and Denies weakness Psych Denies anxiety, Denies depression, Denies memory loss Endo Denies cold intolerance, Denies fatigue, Denies heat intolerance, Denies polydipsia and Denies polyuria Aller/Immun Denies wheezing Physical exam (Primary Care) Tobacco/Smoking Status: Tobacco use Status Tobacco use date assessed 01/29/24 01/29/24 10:59 Patient Tobacco Use Status Current everyday Tobacco 01/29/24 10:40 Tobacco use type Cigarette 01/29/24 10:40 e-Cigarette/Vaping Use Never Used 01/29/24 10:40 Thrive Assessment: Date of Thrive Assessment Date Thrive assessed 11/19/23 01/29/24 10:40 Const Other: General: no acute distress and well developed Nutritional Appearance: well nourished Orientation/consciousness: patient oriented x3 HENMT Head: Yes normocephalic and Yes atraumatic Eyes General: appearance normal, both eyes and all related structures Pupils: Equal, round and reactive pupils present EOM: EOMs intact bilaterally Resp Effort & Inspection: normal respiratory effort Auscultation: clear to auscultation bilaterally Cardio Rate: regular rate Rhythm: regular rhythm Heart sounds: S1 normal heart sound present, S2 normal heart sound present, no gallops, no murmurs and no rubs GI Palpation (GI): No Abdominal aortic bruit present, Soft to palpation, nontender, No hepatosplenomegaly present and No Rebound tenderness present Auscultation: normal bowel sounds General: Yes no CVA tenderness Back/Spine/Pelvis Back: no CVA tenderness Cervical Spine: cervical ROM normal and No Cervical spine tenderness Thoracic/Lumbar Spine: thoraco-lumbar ROM normal, No pain with thoraco-lumbar ROM, No thoracic spinal tenderness and No lumbar spinal tenderness Extrem General: Yes normal to inspection, No edema and No calf tenderness Skin General: warm and dry. Normal skin color. Normal skin turgor Neuro General: patient oriented x3, gait normal and no focal neuro deficit Cranial nerves: Yes Equal, round and reactive pupils present Cognition (Neuro): normal cognition Gait exam (Neuro): Normal gait present Sensory Exam: No Sensory deficit (Neuro) Psych Appearance: grossly normal Affect: normal affect Attitude: cooperative Thought process: Normal thought process present Coding Level of Care Code Est Pt Level 3 (05745) Diagnoses Primary hypertension I10 Hypertension type: primary hypertension Assessment & Plan Assessment & Plan (1) Hypertension: Code(s): I10 - Essential (primary) hypertension Category: Medical Qualifiers: Hypertension type: primary hypertension Qualified Code(s): I10 - Essential (primary) hypertension Plan: Resting blood pressure is 138/60, above goal of less than 130/80 Her diastolic blood pressure tends to run low. Her erratic blood pressure readings may be attributed to her h/o kidney disease. She was referred to [facility] nephrology twice (last year and in November). The MA called the nephrology office and was told the never received the referrals. Referral printed and faxed to them today Advised to continue current treatment regimen Low-sodium diet encouraged Advised to get fasting blood work done before her next visit Follow-up in 1 month for an extended physical exam and labs review or sooner with symptoms or concerns Verbalized understanding and agreed with the treatment plan Orders: Orders Comprehensive Renick. Panel Fast Today Z00.00 - Encounter for general adult medical examination without abnormal findings
[2024-02-12 10:42] VITALS: BP 138/60; PULSE 71; RESP 16; TEMP 36.4; O2SAT 100; BMI 22.9
== END 2024-02-12 11:11 | disposition home or self-care (01) ==
PROVIDERS: PCP Nurse Practitioner Family; Visit Provider Nurse Practitioner Family
DX: I10 Essential (primary) hypertension (principal)

== ENCOUNTER → 2024-02-12 10:32 | Outpatient (BNVA) | payer MEDICARE, SELFPAY | PROVIDERS: PCP Nurse Practitioner Family; Visit Provider Nurse Practitioner Family | DX: I10 Essential (primary) hypertension (principal) | CPT/HCPCS: 99212 ==

== ENCOUNTER 2024-03-01 08:40 | Outpatient (REF) | payer MEDICARE, SELFPAY ==
[2024-03-01 11:28] LABS: Appearance Urine Clear; Color Urine Yellow; Glucose Urine UA Negative (Negative); Leukocyte Esterase Urine Negative (Negative); Nitrite Urine Negative (Negative); UMIC TRIGGER UACC YES; Urine Blood Negative (Negative); Urine Ketones Negative (Negative); Urine Protein 100 (2+) mg/dL (Neg-Trace)
[2024-03-01 11:31] LABS: Bacteria Urine None Seen (None Seen); Hyaline Casts Urine 0-2 /LPF (0-2); RBC Urine 0-2 /HPF (0-2); Squamous Epithelial Cell Urine 0-2 /HPF (0-2); WBC Urine 0-5 /HPF (0-5)
[2024-03-01 11:33] LABS: Hematocrit 29.4 % (37.0-47.0); Hemoglobin 9.3 g/dl (12.0-16.0); Mean Corpuscular HGB Conc 31.6 g/dl (31.0-35.0); Mean Corpuscular Hemoglobin 30.9 pg (27.0-33.0); Mean Corpuscular Volume 97.7 fL (80.0-98.0); Mean Platelet Volume 10.5 fL (9.4-12.3); Platelet Count 253 X10*3/uL (160-400); Red Blood Count 3.01 X10*6/uL (4.20-5.50); Red Cell Distribution Width 13.9 % (11.0-16.0); White Blood Count 7.7 X10*3/uL (4.8-10.8)
[2024-03-01 12:00] LABS: Alanine Aminotransferase 17 U/L (0-31); Albumin Level 3.8 g/dL (3.5-5.0); Alkaline Phosphatase 90 U/L (39-117); Anion Gap 8 (12-20); Aspartate Amino Transferase 24 U/L (5-31); Bilirubin Total 0.3 mg/dL (0.0-1.0); Blood Urea Nitrogen 20 mg/dL (9-16); Calcium 9.7 mg/dL (8.4-10.2); Carbon Dioxide 27 mmol/L (22-29); Chloride 110 mmol/L (96-108); Cholesterol 99 mg/dL (<200); Estimated Glomerular Filt Rate 29; Glucose Fasting 109 mg/dL (60-99); HDL Cholesterol 44 mg/dL (>40); Iron 54 mcg/dL (30-160); LDL Cholesterol Calculated 42 mg/dL (<100); Percent Iron Saturation 17 % (15-50); Potassium 4.8 mmol/L (3.3-5.1); Sodium 140 mmol/L (135-145); Total Iron Binding Capacity 321 mcg/dL (228-428); Total Protein 6.8 g/dL (6.5-8.0); Triglycerides 67 mg/dL (<150); Unsaturated Iron Binding 267 ug/dL
[2024-03-01 12:19] LABS: Folate 5.1 ng/mL (> or = 4.0); Vitamin B12 585 pg/mL (200-900)
[2024-03-01 12:27] LABS: Ferritin 25 ng/mL (10-250)
== END 2024-03-01 08:41 | disposition home or self-care (01) ==
LOC: HO.WFDLDS 08:40
PROVIDERS: Referring Provider Internal Medicine Cardiovascular Disease; Visit Provider Nurse Practitioner Family
DX: Z00.00 Encounter for general adult medical examination without abnormal findings (principal); D64.9 Anemia, unspecified; I25.10 Atherosclerotic heart disease of native coronary artery without angina pectoris; I65.23 Occlusion and stenosis of bilateral carotid arteries
CPT/HCPCS: 36415; 80053; 80061; 81001; 82607; 82728; 82746; 83540; 85027

== ENCOUNTER → 2024-03-05 10:19 | Outpatient (AMB) | payer MEDICARE, SELFPAY ==
[2024-03-05 10:31] VITALS: BP 177/84; PULSE 75; BMI 23.5
--- NOTE | 2024-03-05 10:31 | MHC.OFFVIS ---
Vital Signs 03/05/24 10:31 Height 5 ft 4 in Weight 137 lb 2.04 oz BMI 23.5 BP 177/84 H Blood Pressure Location Lt brachial Position Sitting Pulse 75 Intake Visit Reasons: 6 week follow up multiple food allergies Intake Note: Pallavi presents in office today in follow up food allergies. CC: Patient states that she is avoiding wheat and lactose and her diarrhea went away. She states she is doing so much better unless she eats something she know she is not supposed to. Clinical Engineering Manager Required: No Accompanied by: Self / Same As Patient Allergies acetaminophen [From Percocet] Allergy (Intermediate, Verified 05/07/24 10:13) Itching oxycodone [From Percocet] Allergy (Intermediate, Verified 05/07/24 10:13) Itching Seasonal Allergies Allergy (Intermediate, Verified 05/07/24 10:13) Itchy Eyes ibuprofen [From Motrin] Allergy (Unknown, Verified 05/07/24 10:13) Swelling wheat Adverse Reaction (Unknown, Verified 05/07/24 10:13) Diarrhea lactose Adverse Reaction (Verified 05/07/24 10:13) Diarrhea HPI HPI 6 week follow up multiple food allergies: Details: Assessment & Plan (1) Irritable bowel syndrome with diarrhea: Code(s): K58.0 - Irritable bowel syndrome with diarrhea Category: Medical (2) Wheat allergy: Comment: This appears to be some other component than gluten Code(s): Z91.018 - Allergy to other foods Category: Medical (3) Peanut allergy: Code(s): Z91.010 - Allergy to peanuts Category: Medical (4) Allergy to egg white: Code(s): Z91.012 - Allergy to eggs Category: Medical (5) GERD (gastroesophageal reflux disease): Code(s): K21.9 - Gastro-esophageal reflux disease without esophagitis Category: Medical (6) Cow's milk allergy: Code(s): Z91.011 - Allergy to milk products Category: Medical (7) Allergy to sesame seed: Code(s): Z91.018 - Allergy to other foods Category: Medical Plan She had a very bad incident of severe epigastric pain and presented to the [place] emergency department. There she was started on sucralfate, pantoprazole, and famotidine. This has helped her stomach quite a bit. She received the Lotronex but says it was ?a disaster.? Apparently worsened her diarrhea. We can not use Viberzi because of her renal status so I think we will increase the Carafate to 4 tabs and she is educated to take it at noon so it does not block absorption of any of her other critical chronic medications. She is agreeable to this. With discussion I discovered that she was not completely aware of all of the foods affected by her food allergies. For instance she was not aware of how prevalent eggs were in many good, wheat is not just in breads, and particularly milk and cheeses. I am going to print her list to try to help her know what she can and can not eat since these foods or so prevalent in so many common available products. She asks about Crohn's disease but we did test her for this her fecal calprotectin was not elevated and she had a colonoscopy 4 years ago in [place] that was completely negative. She wants to know if I think there is anything else wrong with her and I really do not since we have done extensive testing. At this point she is going to work harder to try to avoid the foods that are triggers for her diarrhea and we will try to titrate her with Carafate and the above medications. Return office visit in 6 weeks. Dietary information printed from various sources on wheat and milk allergies. Medications: New sucralfate 4 grams (4 x 1 gram) PO QNOON 120 tabs 6RF K21.9 - Gastro-esophageal reflux disease without esophagitis, K58.0 - Irritable bowel syndrome with diarrhea, Z91.010 - Allergy to peanuts, Z91.011 - Allergy to milk products, Z91.012 - Allergy to eggs, Z91.018 - Allergy to other foods famotidine 20 mg PO DAILY 30 tabs 6RF pantoprazole 40 mg PO BID 60 tabs 6RF Discontinued alosetron (Lotronex) Discontinued Reason: Doctor's Order 0.5 mg PO BID 60 tabs 6RF K58.0 - Irritable bowel syndrome with diarrhea TODAY'S VISIT She is doing great!!! She continues on her sucralfate, famotidine, and pantoprazole with good control of all of her conditions. She is very happy with her current GI regimen and the progress he has made. She is getting ready to wear normal underwear again! ROV 6 mos. [facility] Medical History (Updated 05/07/24 @ 10:31 by Jaylen Taylor CNP) Screening for lung cancer Colon cancer screening Normal physical examination, routine Viral upper respiratory illness Laboratory tests ordered as part of a complete physical exam (CPE) Cardiac pacemaker in situ Runny nose Smoking 1/2 pack a day or less SOB (shortness of breath) on exertion Smoking greater than 30 pack years Diarrhea Osteopenia Breast cancer screening Chronic diarrhea Skin tear of left upper arm without complication Aortic stenosis Restless leg syndrome No pertinent family history Hyperlipidemia Chronic back pain Osteoarthritis GERD (gastroesophageal reflux disease) Anxiety and depression Type 2 diabetes mellitus Hypertension CKD (chronic kidney disease) stage 3, GFR 30-59 ml/min Hypothyroidism Cataracts, bilateral COPD (chronic obstructive pulmonary disease) Deafness in right ear Stroke Surgical History History of esophagogastroduodenoscopy (EGD) H/O colonoscopy History of tonsillectomy History of appendectomy H/O: hysterectomy History of back surgery H/O thyroidectomy H/O endarterectomy S/P cardiac pacemaker procedure Family History Mother Bladder cancer Brother Bladder cancer Social History Household Members: Children Housing: House Do you presently have visiting nurse or other home services: No Patient Tobacco Use Status: Current everyday Tobacco user Tobacco use type: Cigarette Cigarette Packs Per Day: 0.5 Cigarettes Per Day: 12 Years Smoked: 70 e-Cigarette/Vaping Use: Never Used Substance Use Type: Marijuana service: No Current occupational status: retired Current occupational exposures/hazards: No Cognitive needs: No Hearing needs: No Vision needs: No Review of Systems Const Denies fatigue, Denies fever(s), Denies night sweats, Denies poor appetite and Denies weight loss ENT Reports Normal hearing present, Denies dental pain, Denies dysphagia, Denies hearing loss, Denies mouth pain, Denies odynophagia, Denies throat swelling, Denies tongue swelling and Reports other (Dentition adequate) Card Reports no additional complaints Resp Reports no additional complaints GI Details: Denies abdominal pain, Denies melena, Denies bloating, Denies hematochezia, Denies constipation, Denies GI cramping, Denies dysphagia, Denies excessive flatus, Denies early satiety, Reports heartburn, Reports diarrhea, Denies nausea, Denies odynophagia, Denies vomiting and Denies hematemesis Skin/Breast Denies pruritus, Denies lesions, Denies rash and Denies jaundice Neuro Reports Normal hearing present and Denies Abnormal speech present Endo Denies fatigue Aller/Immun Denies throat swelling and Denies tongue swelling Physical Exam Vital Signs: Last Vital Signs Pulse 75 03/05/24 10:31 BP 177/84 H 03/05/24 10:31 BMI result Body Mass Index 23.5 Const General: cooperative, no acute distress, well developed and well groomed Nutritional Appearance: average body habitus and well nourished Orientation/consciousness: oriented to person, oriented to place and oriented to time Limitations: No language barrier HEENT Head: Yes normocephalic and Yes atraumatic Eyes General: appearance normal, both eyes and all related structures Pupils: Equal, round and reactive pupils present Neck Neck: Yes normal visual inspection and Yes no lymphadenopathy Thyroid: Thyroid normal Resp Effort & Inspection: normal respiratory effort and able to speak in complete sentences Auscultation: clear to auscultation bilaterally Cardio Rate: regular rate Rhythm: regular rhythm Heart sounds: Normal, physiologic split S2 sound present Peripheral pulses: radial pulses present and posterior tibial pulses present GI Inspection: No distended and No Abdominal panniculus present Palpation (GI): Soft to palpation, nontender, no guarding, not rigid and No hepatosplenomegaly present Percussion: Yes normal to percussion Auscultation: normal bowel sounds Rectal Exam - Female: deferred Skin General skin exam: no rashes or lesions noted, turgor normal, skin not dry, no jaundice, No spider nevi and no striae Rashes: no rashes Nails: normal Neuro General: oriented to person, oriented to place and oriented to time Cranial nerves: Yes Equal, round and reactive pupils present and Yes Normal hearing present Speech: No Abnormal speech present Extrem General: Yes normal to inspection, No clubbing, No cyanosis and No edema Psych Appearance: grossly normal and well kempt Mental Status: mental status grossly normal Speech and movement: Normal speech and movement present Affect: normal affect Attitude: cooperative Thought process: Normal thought process present and not confabulating Thought content: Normal thought content present Insight: Fair insight present (Psych) Judgement: Fair judgement present (Psych) Assessment & Plan Assessment & Plan (1) Irritable bowel syndrome with diarrhea: Code(s): K58.0 - Irritable bowel syndrome with diarrhea Category: Medical (2) GERD (gastroesophageal reflux disease): Code(s): K21.9 - Gastro-esophageal reflux disease without esophagitis Category: Medical (3) Wheat allergy: Comment: This appears to be some other component than gluten Code(s): Z91.018 - Allergy to other foods Category: Medical (4) Peanut allergy: Code(s): Z91.010 - Allergy to peanuts Category: Medical (5) Allergy to egg white: Code(s): Z91.012 - Allergy to eggs Category: Medical (6) Cow's milk allergy: Code(s): Z91.011 - Allergy to milk products Category: Medical (7) Allergy to sesame seed: Code(s): Z91.018 - Allergy to other foods Category: Medical (8) Periumbilical abdominal pain: Code(s): R10.33 - Periumbilical pain Category: Medical Plan She is doing great!!! She continues on her sucralfate, famotidine, and pantoprazole with good control of all of her conditions. She is very happy with her current GI regimen and the progress he has made. She is getting ready to wear normal underwear again! ROV 6 mos. Medications: Discontinued levothyroxine Discontinued Reason: Doctor's Order 137 mcg PO DAILY 90 tabs 0RF Coding Level of Care Code Est Pt Level 3 (04575) Diagnoses Irritable bowel syndrome with diarrhea K58.0 GERD (gastroesophageal reflux disease) K21.9 Wheat allergy Z91.018 Peanut allergy Z91.010 Allergy to egg white Z91.012 Cow's milk allergy Z91.011 Allergy to sesame seed Z91.018 Periumbilical abdominal pain R10.33
== END ==
LOC: HO.HGI 10:20
PROVIDERS: PCP Nurse Practitioner Family; Visit Provider Nurse Practitioner
DX: K58.0 Irritable bowel syndrome with diarrhea (principal); K21.9 Gastro-esophageal reflux disease without esophagitis; Z91.018 Allergy to other foods; Z91.010 Allergy to peanuts; Z91.012 Allergy to eggs; Z91.011 Allergy to milk products; R10.33 Periumbilical pain
CPT/HCPCS: 99213

== ENCOUNTER → 2024-03-05 10:19 | Outpatient (BNVA) | payer MEDICARE, SELFPAY | PROVIDERS: PCP Nurse Practitioner Family; Visit Provider Nurse Practitioner | DX: K58.0 Irritable bowel syndrome with diarrhea (principal); K21.9 Gastro-esophageal reflux disease without esophagitis; Z91.018 Allergy to other foods; Z91.010 Allergy to peanuts; Z91.012 Allergy to eggs; Z91.011 Allergy to milk products; R10.33 Periumbilical pain | CPT/HCPCS: 99212 ==

== ENCOUNTER 2024-03-08 10:00 | Outpatient (AMB) | payer MEDICARE, SELFPAY ==
--- NOTE | 2024-03-08 10:16 | MHC.PC.OV ---
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 Required: No Is last menstrual period known: No Post menopausal: No Patient : No Allergies acetaminophen [From Percocet] Allergy (Intermediate, Verified 03/08/24 10:47) Itching oxycodone [From Percocet] Allergy (Intermediate, Verified 03/08/24 10:47) Itching Seasonal Allergies Allergy (Intermediate, Verified 03/08/24 10:47) Itchy Eyes ibuprofen [From Motrin] Allergy (Unknown, Verified 03/08/24 10:47) Swelling wheat Adverse Reaction (Unknown, Verified 03/08/24 10:47) Diarrhea lactose Adverse Reaction (Verified 03/08/24 10:47) Diarrhea Medication List - Last Reconciled 03/08/24 by Jaylen Taylor CNP acetaminophen ER (Tylenol 8 Hour) 650 mg PO Q8H PRN amlodipine 10 mg PO BEDTIME aspirin (Adult Low Dose Aspirin) 81 mg PO DAILY atorvastatin 80 mg PO BEDTIME 30 days vsowgeqgev-tyybsiky-nwvjqpoyle 160-9-4.8 mcg/actuation (Breztri Aerosphere) 1 inh inhalation BID buspirone 7.5 mg PO BID 30 days cetirizine (Zyrtec) 10 mg PO DAILY 30 days cilostazol 100 mg PO BID 30 days clopidogrel 75 mg PO DAILY 30 days diphenhydramine-acetaminophen 25-500 mg (Acetaminophen PM) 2 tabs PO BEDTIME ezetimibe 10 mg PO DAILY famotidine 20 mg PO DAILY ferrous sulfate 325 mg PO DAILY 30 days folic acid 0.4 mg PO DAILY 30 days gabapentin 400 mg PO TID levothyroxine 137 mcg PO DAILY lisinopril 5 mg PO DAILY 30 days loperamide (Anti-Diarrheal (loperamide)) 4 mg PO BEDTIME PRN mecobalamin (vitamin B12) 1,000 mcg PO DAILY omeprazole 20 mg PO DAILY pantoprazole 40 mg PO BID pramipexole 0.25 mg (2 x 0.125 mg) PO BEDTIME 30 days psyllium husk (Metamucil) 1 tbsp PO DAILY sertraline 100 mg PO BID sucralfate 4 grams (4 x 1 gram) PO QNOON Tobacco use date assessed: 03/08/24 Fall risk assessment: 2 + Falls in past year Last assessed Fall Risk: 03/08/24 Dental Screening Dental Screen Date: 03/08/24 Did you have a dental visit in the last 12 months?: No Did you have a dental problem in the last 6 months where you did not have access to dental care?: No Was dental information given to patient?: Patient declined HPI HPI Comments History of Present Illness Details 78-year-old female presents for an extended physical exam. 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 She admits to taking her medications as prescribed without adverse reactions She notes controlled anxiety and depressive symptoms. She generally sleeps well She notes that she has been maintaining a healthy lifestyle She offers no complaints and denies acute symptoms at this time. She notes that smoked a pack of cigarettes daily for 71 years; she quit smoking 6 days ago. She is unsure whether she has had a LDCT done. She does not drink alcohol. Smokes a pip of cannabis daily; she has been smoking for 12 years Last diabetic eye exam was in 12/2022 Last colonoscopy 4 yrs ago in [place], formerly [facility] practice Last DEXA scan was seen 02/2023: Osteoporosis Last mammogram was in 02/2023: normal She no longer performs Pap smear test Last Tdap was in 12/2022 She notes that she is up-to-date on the shingles and pneumonia vaccines She has not been vaccinated for the flu this season. She intends to get the vaccine from the pharmacy She is up-to-date on the covid vaccine She has not seen a dentist in over a year History of a fall x2 last week. 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 Her second fall was backwards from after standing up from a chair in her home. She fell on her buttock the first time on on her back the second time. She denies hitting her head or neck. She notes lower back pain which has significantly improved. She denies dizziness/lightheadedness with position changes. She reports dyspnea with moderate exertion She is followed [facility] Cardiology and Gastroenterology. She was followed by [facility] Medical History (Updated 03/08/24 @ 15:12 by Jaylen Taylor CNP) Screening for lung cancer Colon cancer screening Normal physical examination, routine Viral upper respiratory illness Laboratory tests ordered as part of a complete physical exam (CPE) Cardiac pacemaker in situ Runny nose Smoking 1/2 pack a day or less SOB (shortness of breath) on exertion Smoking greater than 30 pack years Diarrhea Osteopenia Breast cancer screening Chronic diarrhea Skin tear of left upper arm without complication Aortic stenosis Restless leg syndrome No pertinent family history Hyperlipidemia Chronic back pain Osteoarthritis GERD (gastroesophageal reflux disease) Anxiety and depression Type 2 diabetes mellitus Hypertension CKD (chronic kidney disease) stage 3, GFR 30-59 ml/min Hypothyroidism Cataracts, bilateral COPD (chronic obstructive pulmonary disease) Deafness in right ear Stroke Surgical History History of esophagogastroduodenoscopy (EGD) H/O colonoscopy History of tonsillectomy History of appendectomy H/O: hysterectomy History of back surgery H/O thyroidectomy H/O endarterectomy S/P cardiac pacemaker procedure Family History Mother Bladder cancer Brother Bladder cancer Social History Household Members: Children Housing: House Do you presently have visiting nurse or other home services: No Patient Tobacco Use Status: Current everyday Tobacco user Tobacco use type: Cigarette Cigarette Packs Per Day: 0.25 Cigarettes Per Day: 10 Years Smoked: 70 e-Cigarette/Vaping Use: Never Used Substance Use Type: Marijuana service: No Current occupational status: retired Cognitive needs: No Hearing needs: No Vision needs: No Questionnaire PHQ-9 Over the last 2 weeks, how often have you been bothered by any of the following problems? 1. Little interest or pleasure in doing things: more than half the days 2. Feeling down, depressed, or hopeless: more than half the days 3. Trouble falling or staying asleep, or sleeping too much: several days 4. Feeling tired or having little energy: nearly every day 5. Poor appetite or overeating: not at all 6. Feeling bad about yourself - or that you are a failure or have let yourself or your family down: not at all 7. Trouble concentrating on things, such as reading the newspaper or watching television: nearly every day 8. Moving or speaking so slowly that other people could have noticed. Or the opposite - being so fidgety or restless that you have been moving around a lot more than usual: not at all 9. Thoughts that you would be better off or of hurting yourself in some way: not at all Total score: 11 Depression Screening Interpretation: Positive Depression Screening Follow-up: Existing condition Depression Screening Done: Yes 69215 - PHQ-9 Billing: Yes Source: Developed by Drs. Bonifacio Bethea, Danni Villa, Rico Wilcox and colleagues, with an educational saranya from [employer]. Thrive Questionnaire Date Thrive assessed: 03/08/24 I am a: Patient What is your living situation today?: I have a steady place to live Within the past 12 months, did the food you bought not last and you didn't have the money to get more?: Never true Within the past 12 months, did you worry whether your food would run out before you got money to buy more?: Never true Do you have trouble paying for medicines?: Yes (sometimes) Do you have trouble getting transportation to medical appointments?: No Do you have trouble paying your heating and electricity bill?: No Do you have trouble taking care of your child, family member or friend?: No Do you have trouble with day-to-day activities such as bathing, preparing meals, shopping, managing finances, etc.?: Yes Are you currently unemployed and looking for a job?: No Are you interested in more education?: No Please select the resources that you would like help with: None Currently or been in a relationship where the following occur: No concerns reported THRIVE Score: 0 AUDIT C Alcohol Use Questionnaire (AUDIT-C) 1. How often do you have a drink containing alcohol?: Never Total Score: 0 Score Reviewed/Action Taken: Yes MARCELA-7 AMB Questionnaire MARCELA-7 Date MARCELA - 7 assessed: 03/08/24 Feeling nervous, anxious, or on edge: 1 = Several days Not being able to stop or control worryin = Not at all Worrying too much about different things: 0 = Not at all Trouble relaxin = Nearly every day Being so restless that it is hard to sit still: 3 = Nearly every day Becoming easily annoyed or irritable: 0 = Not at all Feeling afraid as if something awful might happen: 0 = Not at all Total MARCELA-7 score (0-4 normal; 5-9 mild; 10-14 moderate; 15-21 severe): 7 Source: Developed by Drs. Bonifacio Bethea, Danni Villa, Rico Wilcox and colleagues, with an educational saranya from [employer]. MARCELA-7 Assessment Billing MARCELA-7 Assessment Tool: MARCELA-7 Assessment 29664 Review of Systems Const Details: Denies chills, Denies fatigue, Denies fever(s), Denies headache(s) and Denies weakness HEENT Denies change in vision, Denies dizziness, Denies headache(s), Denies hearing loss, Denies nasal congestion, Denies sinus pain, Denies sinus pressure and Denies sore throat Card Denies chest pain, Denies lightheadedness, Reports dyspnea and Denies other (palpitations) Resp Denies cough, Reports dyspnea and Denies wheezing GI Denies abdominal pain, Denies melena, Denies hematochezia, Denies change in bowel habits, Denies dyspepsia and Denies nausea Denies hematuria and Denies dysuria Musc Denies abnormal gait, Denies myalgias, Denies arthralgias, Denies numbness and Denies tingling Skin/Breast Denies rash, Denies unusual bruising and Denies wounds Neuro Denies abnormal gait, Denies dizziness, Denies headache(s), Denies memory loss, Denies numbness, Denies Sensory deficit (Neuro), Denies tingling and Denies weakness Psych Denies anxiety, Denies depression and Denies memory loss Endo Denies cold intolerance, Denies fatigue, Denies heat intolerance, Denies polydipsia and Denies polyuria Arnold/Lymph Denies easy bleeding and Denies easy bruising Aller/Immun Denies wheezing Physical exam (Primary Care) Vital Signs: Last Vital Signs Temp 97.9 F 03/08/24 10:29 Pulse 74 03/08/24 10:29 Resp 16 03/08/24 10:29 BP 144/70 H 03/08/24 10:29 Pulse Ox 100 03/08/24 10:29 Oxygen Delivery Method Room Air 03/08/24 10:29 BMI result Body Mass Index 23.2 Tobacco/Smoking Status: Tobacco use Status Tobacco use date assessed 03/08/24 03/08/24 10:24 Patient Tobacco Use Status Current everyday Tobacco 03/08/24 10:16 Tobacco use type Cigarette 03/08/24 10:16 e-Cigarette/Vaping Use Never Used 03/08/24 10:16 PHQ-9: PHQ-9 Score PHQ-9: Total score 11 03/08/24 17:13 Depression Screening Interpretation: Positive Depression Screening Follow-up: Existing condition Thrive Assessment: Date of Thrive Assessment Date Thrive assessed 03/08/24 03/08/24 10:24 Currently or been in a relationship where the following occur: No concerns reported Const Other: General: no acute distress, well developed, alert and awake Nutritional Appearance: well nourished Orientation/consciousness: patient oriented x3 HENMT Head: Yes normocephalic and Yes atraumatic Ears: hearing grossly normal bilaterally and TM's normal bilaterally General nose exam: Normal external nose present and Normal nares present Mouth: Normal oral and palatal mucosa present and moist mucous membranes. Full dentures present Teeth and gingiva: dentition normal Throat: Yes oropharynx normal Eyes Pupils: Equal, round and reactive pupils present and Pupil accommodation reflex normal EOM: EOMs intact bilaterally Neck Neck: Yes normal visual inspection, Yes no lymphadenopathy and Yes trachea midline Thyroid: Thyroid normal Carotids: no bruits Lymphatic: no lymphadenopathy noted Chest Chest palpation & inspection: normal inspection of the chest Resp Effort & Inspection: normal respiratory effort Auscultation: clear to auscultation bilaterally Cardio Rate: regular rate Rhythm: regular rhythm Heart sounds: S1 normal heart sound present, S2 normal heart sound present, no gallops, +murmurs and no rubs Bruits: no abdominal aortic bruits and no carotid bruits GI Palpation (GI): No Abdominal aortic bruit present, Soft to palpation, nontender, No hepatosplenomegaly present and No Rebound tenderness present Auscultation: normal bowel sounds General: Yes no CVA tenderness Back/Spine/Pelvis Back: no CVA tenderness Cervical Spine: cervical ROM normal and No Cervical spine tenderness Thoracic/Lumbar Spine: thoraco-lumbar ROM normal, No pain with thoraco-lumbar ROM, No thoracic spinal tenderness and No lumbar spinal tenderness Skin General: warm and dry. Normal skin color. Normal skin turgor Lesions: no lesions Rashes: no rashes Trauma: no lacerations or abrasions Wounds: no wounds Nails: normal Neuro General: patient oriented x3, gait normal and CN's II-XI intact bilaterally Cranial nerves: Yes Equal, round and reactive pupils present Cognition (Neuro): normal cognition Gait exam (Neuro): Normal gait present Motor exam (neuro): 5/5 motor strength present throughout Sensory Exam: No Sensory deficit (Neuro) Deep tendon reflexes (DTR's): Right patellar reflex intensity grade: 2+ and Left patellar reflex intensity grade: 2+ Extrem General: Yes normal to inspection, No edema and No calf tenderness Psych Appearance: grossly normal Affect: normal affect Attitude: cooperative Thought process: Normal thought process present Coding Level of Care Code Est Pt Prev Care >65y(50862) Diagnoses Encounter for routine adult physical exam with abnormal findings Z00.01 Primary hypertension I10 Hypertension type: primary hypertension Iron deficiency anemia D50.9 Dyspnea on exertion R06.09 Anxiety and depression F41.9; F32.A Eye exam, routine Z01.00 Colon cancer screening Z12.11 Osteoporosis M81.0 Breast cancer screening by mammogram Z12.31 Stage 3b chronic kidney disease N18.32 Chronic kidney disease stage 3 subtype: stage 3b (GFR 30-44) Screening for lung cancer Z12.2 Additional Codes MARCELA-7 Assessment Billing - MARCELA-7 Assessment Tool: MARCELA-7 Assessment [id number] ([id number]) Assessment & Plan Assessment & Plan (1) Encounter for routine adult physical exam with abnormal findings: Code(s): Z00.01 - Encounter for general adult medical examination with abnormal findings Category: Medical Plan: Physical exam is unremarkable except for positive tandem gait Patient instructed on safety measures to prevent fall. Encouraged to use her assistive devices at all times for ambulation Continue current treatment regimen Healthy diet and routine exercise encouraged Encouraged to cut down on marijuana use Advised to schedule an appointment to establish with a dentist for routine dental care Follow-up in 1 month for hypertension, anemia, anxiety, and depression or sooner with symptoms or concerns Verbalized understanding and agreed with the treatment plan (2) Hypertension: Code(s): I10 - Essential (primary) hypertension Category: Medical Qualifiers: Hypertension type: primary hypertension Qualified Code(s): I10 - Essential (primary) hypertension Plan: Resting blood pressure is 144/70, above goal of less than 140/90 Will increase lisinopril to 10 mg daily. Advised to take as prescribed Low-sodium diet encouraged Follow-up in 1 month Verbalized understanding and agreed with the treatment plan (3) Iron deficiency anemia: Code(s): D50.9 - Iron deficiency anemia, unspecified Category: Medical Plan: Recent RBC, and H&H levels are low, 3.0 and 9.3/29.4 respectively She is on ferrous sulfate 325 mg daily. Encouraged to take as prescribed She will get CBC blood work done today. Will review results and make changes as needed. May referred to Hematology/Oncology. She was referred to [facility] hematology/oncology twice, however, no documented visit noted She reports dyspnea with moderate exertion which may be related to her anemia or h/o COPD. She stopped smoking cigarettes 6 days ago and this may help Verbalized understanding and agreed with the treatment plan (4) Dyspnea on exertion: Code(s): R06.09 - Other forms of dyspnea Category: Medical Plan: Plan as above (5) Anxiety and depression: Code(s): F41.9 - Anxiety disorder, unspecified; F32.A - Depression, unspecified Category: Medical Plan: PHQ-9 and MARCELA-7 score revealed moderate depression and mild anxiety respectively Continue current treatment regimen Routine exercise encouraged Follow-up in 1 month or sooner with worsening or new symptoms Verbalized understanding and agreed with the treatment plan (6) Eye exam, routine: Code(s): Z01.00 - Encounter for examination of eyes and vision without abnormal findings Category: Medical Plan: Last diabetic eye exam with was in 12/2022 Encouraged to call and schedule diabetic eye exam with my eye doctor -Abdi Verbalized understanding and agreed with the plan (7) Colon cancer screening: Code(s): Z12.11 - Encounter for screening for malignant neoplasm of colon Category: Medical Plan: Last colonoscopy 4 yrs ago in [place], unknown practice Referred to [facility] gastroenterology for a colonoscopy (8) Osteoporosis: Code(s): M81.0 - Age-related osteoporosis without current pathological fracture Category: Medical Plan: Last DEXA scan was seen 02/2023: Osteoporosis She was referred to endocrinology of [facility] but has not establish care. Encouraged to call and schedule an appointment Verbalized understanding and agreed with the plan (9) Breast cancer screening by mammogram: Code(s): Z12.31 - Encounter for screening mammogram for malignant neoplasm of breast Category: Medical Plan: Last mammogram was in 02/2023: normal Encouraged to call [facility] radiology department to schedule an appointment for her annual mammogram Verbalized understanding and agreed with the plan (10) CKD (chronic kidney disease) stage 3, GFR 30-59 ml/min: Code(s): N18.30 - Chronic kidney disease, stage 3 unspecified Category: Medical Qualifiers: Chronic kidney disease stage 3 subtype: stage 3b (GFR 30-44) Qualified Code(s): N18.32 - Chronic kidney disease, stage 3b Plan: Recent creatinine level is 1.70, GFR is 29 She was followed by [facility]phrology and [facility]. The biomedical equipment tech attempted to reach Nephrology and [facility] Trans[facility] today and was informed there permanently closed Two referrals was made to [facility] nephrology, however, the patient has not scheduled an appointment with them. Advised to call and schedule an appointment with [facility] Nephrology Verbalized understanding and agreed with the plan (11) Screening for lung cancer: Code(s): Z12.2 - Encounter for screening for malignant neoplasm of respiratory organs Category: Medical Plan: She smoked a pack of cigarettes daily for 71 years; she quit smoking 6 days ago. She is unsure whether she has had a LDCT done Referred to [facility] for lung cancer screening Orders: Orders TSH reflex Free T4 03/08/24 Z00.00 - Encounter for general adult medical examination without abnormal findings Complete Blood Count no Diff 03/08/24 D50.9 - Iron deficiency anemia, unspecified Referrals Lung Cancer Screening Referral Z12.2 - Encounter for screening for malignant neoplasm of respiratory organs Gastroenterology Referral Z12.11 - Encounter for screening for malignant neoplasm of colon Hematology & Oncology Referral D50.9 - Iron deficiency anemia, unspecified Medications: New lisinopril 10 mg PO DAILY 30 days 30 tabs 3RF Discontinued lisinopril Discontinued Reason: Doctor's Order 5 mg PO DAILY 30 days 30 tabs 3RF
[2024-03-08 10:29] VITALS: BP 144/70; PULSE 74; RESP 16; TEMP 36.6; O2SAT 100; BMI 23.2
== END 2024-03-08 11:22 | disposition home or self-care (01) ==
LOC: HO.HMCFM 10:01
PROVIDERS: PCP Nurse Practitioner Family; Visit Provider Nurse Practitioner Family
DX: Z00.00 Encounter for general adult medical examination without abnormal findings (principal); I12.9 Hypertensive chronic kidney disease with stage 1 through stage 4 chronic kidney disease, or unspecified chronic kidney disease; N18.32 Chronic kidney disease, stage 3b; D50.9 Iron deficiency anemia, unspecified; R06.09 Other forms of dyspnea; F41.9 Anxiety disorder, unspecified; F32.A Depression, unspecified; Z12.11 Encounter for screening for malignant neoplasm of colon; M81.0 Age-related osteoporosis without current pathological fracture; Z12.31 Encounter for screening mammogram for malignant neoplasm of breast; Z12.2 Encounter for screening for malignant neoplasm of respiratory organs

== ENCOUNTER → 2024-03-08 10:00 | Outpatient (BNVA) | payer MEDICARE, SELFPAY | PROVIDERS: PCP Nurse Practitioner Family; Visit Provider Nurse Practitioner Family | DX: Z00.01 Encounter for general adult medical examination with abnormal findings (principal); D50.9 Iron deficiency anemia, unspecified; R06.09 Other forms of dyspnea; F41.9 Anxiety disorder, unspecified; F32.A Depression, unspecified; M81.0 Age-related osteoporosis without current pathological fracture; I12.9 Hypertensive chronic kidney disease with stage 1 through stage 4 chronic kidney disease, or unspecified chronic kidney disease; N18.32 Chronic kidney disease, stage 3b | CPT/HCPCS: 36415; 84439; 84443; 85027; 96127; 99397 ==

== ENCOUNTER 2024-03-08 11:25 | Outpatient (REF) | payer MEDICARE, SELFPAY ==
[2024-03-08 14:52] LABS: Hemoglobin 8.8 g/dl (12.0-16.0); Mean Corpuscular HGB Conc 31.4 g/dl (31.0-35.0); Mean Corpuscular Hemoglobin 30.8 pg (27.0-33.0); Mean Corpuscular Volume 97.9 fL (80.0-98.0); Platelet Count 224 X10*3/uL (160-400); Red Blood Count 2.86 X10*6/uL (4.20-5.50); White Blood Count 7.1 X10*3/uL (4.8-10.8)
[2024-03-08 16:05] LABS: TSH reflex Free T4 9.82 uIU/mL (0.32-4.0)
[2024-03-08 17:57] LABS: Free T4 (Free Thyroxine) 1.06 ng/dL (0.71-1.85)
== END 2024-03-08 11:26 | disposition home or self-care (01) ==
LOC: HO.WFDLDS 11:25
PROVIDERS: Visit Provider Nurse Practitioner Family
DX: Z13.89 Encounter for screening for other disorder (principal)
CPT/HCPCS: 36415; 84439; 84443; 85027

== ENCOUNTER → 2024-03-11 23:59 | Outpatient (BNV) | payer MEDICARE, SELFPAY ==
--- NOTE | 2024-03-11 13:00 | A.OFFVIS_ITS ---
Intake Visit Reasons: Remote device check- Biotronik Allergies acetaminophen [From Percocet] Allergy (Intermediate, Verified 03/08/24 10:47) Itching oxycodone [From Percocet] Allergy (Intermediate, Verified 03/08/24 10:47) Itching Seasonal Allergies Allergy (Intermediate, Verified 03/08/24 10:47) Itchy Eyes ibuprofen [From Motrin] Allergy (Unknown, Verified 03/08/24 10:47) Swelling wheat Adverse Reaction (Unknown, Verified 03/08/24 10:47) Diarrhea lactose Adverse Reaction (Verified 03/08/24 10:47) Diarrhea [facility] Medical History (Updated 03/08/24 @ 15:12 by Jaylen Taylor CNP) Screening for lung cancer Colon cancer screening Normal physical examination, routine Viral upper respiratory illness Laboratory tests ordered as part of a complete physical exam (CPE) Cardiac pacemaker in situ Runny nose Smoking 1/2 pack a day or less SOB (shortness of breath) on exertion Smoking greater than 30 pack years Diarrhea Osteopenia Breast cancer screening Chronic diarrhea Skin tear of left upper arm without complication Aortic stenosis Restless leg syndrome No pertinent family history Hyperlipidemia Chronic back pain Osteoarthritis GERD (gastroesophageal reflux disease) Anxiety and depression Type 2 diabetes mellitus Hypertension CKD (chronic kidney disease) stage 3, GFR 30-59 ml/min Hypothyroidism Cataracts, bilateral COPD (chronic obstructive pulmonary disease) Deafness in right ear Stroke Surgical History History of esophagogastroduodenoscopy (EGD) H/O colonoscopy History of tonsillectomy History of appendectomy H/O: hysterectomy History of back surgery H/O thyroidectomy H/O endarterectomy S/P cardiac pacemaker procedure Family History Mother Bladder cancer Brother Bladder cancer Social History Household Members: Children Housing: House Do you presently have visiting nurse or other home services: No Patient Tobacco Use Status: Current everyday Tobacco user Tobacco use type: Cigarette Cigarette Packs Per Day: 0.25 Cigarettes Per Day: 10 Years Smoked: 70 e-Cigarette/Vaping Use: Never Used Substance Use Type: Marijuana service: No Current occupational status: retired Cognitive needs: No Hearing needs: No Vision needs: No Office Procedures Cardiac Device Check Cardiac Device Check Details: Remote pacemaker report generated 03/11/2024. Pacemaker function is adequate [id number] Cardiac Device Interrogation, pacemaker Procedure code (CPT) selection complete Assessment & Plan Assessment & Plan (1) Cardiac pacemaker in situ: Comment: Biotronik dual-chamber pacemaker in place, placed in 2016 Code(s): Z95.0 - Presence of cardiac pacemaker Category: Medical Plan: See above Coding Level of Care Code Procedure Only Diagnoses Cardiac pacemaker in situ Z95.0 CPT Codes Cardiac Device Check - Cardiac Device 12: [id number] Cardiac Device Interrogation, pacemaker ([id number])
== END ==
PROVIDERS: PCP Nurse Practitioner Family; Visit Provider Internal Medicine Cardiovascular Disease
DX: Z45.018 Encounter for adjustment and management of other part of cardiac pacemaker (principal)
CPT/HCPCS: 93294

== ENCOUNTER 2024-04-07 09:45 | Outpatient (AMB) | payer MEDICARE, SELFPAY ==
--- NOTE | 2024-04-07 09:55 | A.OFFPC_ITS ---
Vital Signs 04/07/24 10:06 04/07/24 10:29 Height 5 ft 4 in Weight 132 lb BMI 22.7 BP 183/77 H 160/80 H Blood Pressure Location Rt brachial Lt brachial Position Sitting Sitting Respiration 20 Pulse 128 H Pulse Source Pulse Oximeter Temp 97.5 F Temp Source Temporal Artery Scan Pulse Oximetry (%) 96 Oxygen Delivery Method Room Air Intake Visit Reasons: 1 mo HTN, anxiety, depression, anemia -see comment Intake Note: patient here c/o anxiety, depression, anemia Rescue Worker Required: No Is last menstrual period known: No Post menopausal: No Patient : No Allergies acetaminophen [From Percocet] Allergy (Intermediate, Verified 04/07/24 10:24) Itching oxycodone [From Percocet] Allergy (Intermediate, Verified 04/07/24 10:24) Itching Seasonal Allergies Allergy (Intermediate, Verified 04/07/24 10:24) Itchy Eyes ibuprofen [From Motrin] Allergy (Unknown, Verified 04/07/24 10:24) Swelling wheat Adverse Reaction (Unknown, Verified 04/07/24 10:24) Diarrhea lactose Adverse Reaction (Verified 04/07/24 10:24) Diarrhea Medication List - Last Reviewed 04/07/24 by Vandana Wilkinson acetaminophen ER (Tylenol 8 Hour) 650 mg PO Q8H PRN aspirin (Adult Low Dose Aspirin) 81 mg PO DAILY atorvastatin 80 mg PO BEDTIME 30 days pnbrldlohk-bqodpggo-xfjweibats 160-9-4.8 mcg/actuation (Breztri Aerosphere) 1 inh inhalation BID buspirone 7.5 mg PO BID 30 days cetirizine (Zyrtec) 10 mg PO DAILY 30 days clopidogrel 75 mg PO DAILY 30 days diphenhydramine-acetaminophen 25-500 mg (Acetaminophen PM) 2 tabs PO BEDTIME ezetimibe 10 mg PO DAILY famotidine 20 mg PO DAILY ferrous sulfate 325 mg PO BID 30 days folic acid 0.4 mg PO DAILY 30 days furosemide 20 mg PO DAILY gabapentin 400 mg PO TID levothyroxine 137 mcg PO DAILY loperamide (Anti-Diarrheal (loperamide)) 4 mg PO BEDTIME PRN mecobalamin (vitamin B12) 1,000 mcg PO DAILY metoprolol succinate ER 12.5 mg PO DAILY omeprazole 20 mg PO DAILY pantoprazole 40 mg PO BID pramipexole 0.25 mg (2 x 0.125 mg) PO BEDTIME 30 days psyllium husk (Metamucil) 1 tbsp PO DAILY sertraline 100 mg PO BID spironolactone 25 mg PO DAILY sucralfate 4 grams (4 x 1 gram) PO QNOON Tobacco use date assessed: 04/07/24 Fall risk assessment: 2 + Falls in past year Last assessed Fall Risk: 04/07/24 Dental Screening Dental Screen Date: 04/07/24 Did you have a dental visit in the last 12 months?: No Did you have a dental problem in the last 6 months where you did not have access to dental care?: No Was dental information given to patient?: Patient declined HPI HPI Comments History of Present Illness Details The patient is a 78-year-old female presenting for hypertension, iron deficiency anemia, anxiety, and depression follow up. Her initial blood pressure reading today was 183/77, and later, 160/60. She has a history of iron deficiency anemia with low hemoglobin levels, previously recorded at 8.8 g/dL, and hematocrit at 28.0%. The patient takes daily iron supplements but has experienced intermittent bleeding in her stools, which has been recurrent since August with a recent episode today. She denies any recent medication changes post-hospitalization, and reports a recent discharge from [facility] after an episode of dyspnea lasted a week; she was referred to a rebar fabricator for a follow up later this month. She usually sees a rebar fabricator at [facility]. The patient is also managing generalized anxiety disorder and major depressive disorder with medications. An increase in thyroid-stimulating hormone was noted last month, leading to an increase in her levothyroxine dosage. Social History - Exercises infrequently due to dyspnea; attempts mild cleaning activities at home. - Quit smoking over a month ago; has a s upportive family environment where her son goes outside to smoke. - Reports living in a situation where sh e receives some assistance post-hospital discharge, including visits from a home nurse. Results - Labs: Hemoglobin 8.8 g/dL, hematocrit 28.0%, red blood cell count 2.86 x 10^6/?L, TSH elevated. Recent Hospital Discharge summary Patient presented to [facility] with progressive worsening shortness of breath found to be in the setting of decompensated denovo heart failure. She was also noted to have elevated troponins with a peak of 357, thought to be a type 2 NSTEMI in the setting of heart failure rather than an acute plaque rupture. Echo shows a preserved EF with no wall motion abnormalities. Dilated LA and RA, mild to moderate , mild MR, mild MS. Hemoglobin was initially 7.4 but improved to 10.7 with 1 unit PRBC. Hematocrit was 33.4. Hemoglobin A1c was 5.3%. She was discharged on 03/29/2024 and sent home on new prescriptions for metoprolol XL 12.5 mg daily, spironolactone 25 mg daily, and Lasix 20 mg p.r.n. for greater than 3 lb weight gain in 3 days. Lisinopril and cilostazol were discontinued. She was advised to continue taking her ordered medications; however, amlodipine was not listed as her current medication. She was advised to follow-up with Dr. Crane, rebar fabricator at [facility] in 2-5 weeks and with her PCP. [facility] Medical History (Updated 04/07/24 @ 11:40 by Jaylen Taylor POST TENSIONING IRONWORKER HELPER) Screening for lung cancer Colon cancer screening Normal physical examination, routine Viral upper respiratory illness Laboratory tests ordered as part of a complete physical exam (CPE) Cardiac pacemaker in situ Runny nose Smoking 1/2 pack a day or less SOB (shortness of breath) on exertion Smoking greater than 30 pack years Diarrhea Osteopenia Breast cancer screening Chronic diarrhea Skin tear of left upper arm without complication Aortic stenosis Restless leg syndrome No pertinent family history Hyperlipidemia Chronic back pain Osteoarthritis GERD (gastroesophageal reflux disease) Anxiety and depression Type 2 diabetes mellitus Hypertension CKD (chronic kidney disease) stage 3, GFR 30-59 ml/min Hypothyroidism Cataracts, bilateral COPD (chronic obstructive pulmonary disease) Deafness in right ear Stroke Surgical History History of esophagogastroduodenoscopy (EGD) H/O colonoscopy History of tonsillectomy History of appendectomy H/O: hysterectomy History of back surgery H/O thyroidectomy H/O endarterectomy S/P cardiac pacemaker procedure Family History Mother Bladder cancer Brother Bladder cancer Social History (Reviewed 03/05/24 @ 10:46 by Loulou Salinas [facility]) Household Members: Children Housing: House Do you presently have visiting nurse or other home services: No Patient Tobacco Use Status: Former Tobacco user Tobacco use type: Cigarette Cigarette Packs Per Day: 0.25 Cigarettes Per Day: 10 Years Smoked: 70 e-Cigarette/Vaping Use: Never Used Substance Use Type: Marijuana service: No Current occupational status: retired Cognitive needs: No Hearing needs: No Vision needs: No Questionnaire PHQ-9 Over the last 2 weeks, how often have you been bothered by any of the following problems? 1. Little interest or pleasure in doing things: not at all 2. Feeling down, depressed, or hopeless: not at all 3. Trouble falling or staying asleep, or sleeping too much: not at all 4. Feeling tired or having little energy: nearly every day 5. Poor appetite or overeating: nearly every day 6. Feeling bad about yourself - or that you are a failure or have let yourself or your family down: not at all 7. Trouble concentrating on things, such as reading the newspaper or watching television: several days 8. Moving or speaking so slowly that other people could have noticed. Or the opposite - being so fidgety or restless that you have been moving around a lot more than usual: not at all 9. Thoughts that you would be better off or of hurting yourself in some way: not at all Total score: 7 Depression Screening Interpretation: Negative Depression Screening Done: Yes 12634 - PHQ-9 Billing: Yes Source: Developed by Drs. Bonifacio Bethea, Danni Villa, Rico Wilcox and colleagues, with an educational saranya from [employer]. Thrive Questionnaire Date Thrive assessed: 04/07/24 I am a: Patient What is your living situation today?: I have a steady place to live Within the past 12 months, did the food you bought not last and you didn't have the money to get more?: Never true Within the past 12 months, did you worry whether your food would run out before you got money to buy more?: Never true Do you have trouble paying for medicines?: Yes (sometimes) Do you have trouble getting transportation to medical appointments?: No Do you have trouble paying your heating and electricity bill?: No Do you have trouble taking care of your child, family member or friend?: No Do you have trouble with day-to-day activities such as bathing, preparing meals, shopping, managing finances, etc.?: Yes Are you currently unemployed and looking for a job?: No Are you interested in more education?: No Please select the resources that you would like help with: None Currently or been in a relationship where the following occur: No concerns reported THRIVE Score: 0 AUDIT C Alcohol Use Questionnaire (AUDIT-C) 1. How often do you have a drink containing alcohol?: Never Total Score: 0 MARCELA-7 AMB Questionnaire MARCELA-7 Date MARCELA - 7 assessed: 04/07/24 Feeling nervous, anxious, or on edge: 0 = Not at all Not being able to stop or control worryin = Not at all Worrying too much about different things: 0 = Not at all Trouble relaxin = Nearly every day Being so restless that it is hard to sit still: 3 = Nearly every day Becoming easily annoyed or irritable: 0 = Not at all Feeling afraid as if something awful might happen: 0 = Not at all Total MARCELA-7 score (0-4 normal; 5-9 mild; 10-14 moderate; 15-21 severe): 6 Source: Developed by Drs. Bonifacio Bethea, Danni Villa, Rico Wilcox and colleagues, with an educational saranya from [employer]. MARCELA-7 Assessment Billing MARCELA-7 Assessment Tool: MARCELA-7 Assessment 75234 Review of Systems Const Details: Const Denies chills, Denies fatigue, Denies fever(s), Denies headache(s) and Denies weakness ENT Denies dizziness and Denies headache(s) Card Denies chest pain, Denies lightheadedness, Reports dyspnea on exertion, Denies other (Palpitations) Resp Denies cough, Reports dyspnea on exertion, Denies wheezing and Denies other ( shortness of breath) GI Reports bloody stools three times today, Denies abdominal pain, Denies hematochezia, Denies change in bowel habits, Denies dyspepsia and Denies nausea Denies hematuria and Denies dysuria Musc Denies abnormal gait, Denies myalgias, Denies arthralgias, Denies numbness and Denies tingling Skin/Breast Denies rash, Denies unusual bruising and Denies wounds Neuro Denies abnormal gait, Denies dizziness, Denies headache(s), Denies memory loss, Denies numbness, Denies Sensory deficit (Neuro), Denies tingling and Denies weakness Psych Denies anxiety, Denies depression, Denies memory loss Endo Denies cold intolerance, Denies fatigue, Denies heat intolerance, Denies polydipsia and Denies polyuria Aller/Immun Denies wheezing Physical exam (Primary Care) Vital Signs: Last Vital Signs Temp 97.5 F 04/07/24 10:06 Pulse 128 H 04/07/24 10:06 Resp 20 04/07/24 10:06 BP 160/80 H 04/07/24 10:29 Pulse Ox 96 04/07/24 10:06 Oxygen Delivery Method Room Air 04/07/24 10:06 BMI result Body Mass Index 22.7 Tobacco/Smoking Status: Tobacco use Status Tobacco use date assessed 04/07/24 04/07/24 10:10 Patient Tobacco Use Status Former Tobacco user 04/07/24 11:45 Tobacco use type Cigarette 04/07/24 09:57 e-Cigarette/Vaping Use Never Used 04/07/24 09:57 PHQ-9: PHQ-9 Score PHQ-9: Total score 7 04/08/24 08:38 Depression Screening Interpretation: Negative Thrive Assessment: Date of Thrive Assessment Date Thrive assessed 04/07/24 04/07/24 10:10 Currently or been in a relationship where the following occur: No concerns reported Const Other: General: no acute distress and well developed Nutritional Appearance: well nourished Orientation/consciousness: patient oriented x3 HENMT Head: Yes normocephalic and Yes atraumatic Eyes General: appearance normal, both eyes and all related structures Pupils: Equal, round and reactive pupils present EOM: EOMs intact bilaterally Resp Effort & Inspection: normal respiratory effort Auscultation: clear to auscultation bilaterally Cardio Rate: regular rate Rhythm: regular rhythm Heart sounds: S1 normal heart sound present, S2 normal heart sound present, no gallops, positive murmurs and no rubs GI Palpation (GI): No Abdominal aortic bruit present, Soft to palpation, nontender, No hepatosplenomegaly present and No Rebound tenderness present Auscultation: normal bowel sounds General: Yes no CVA tenderness Back/Spine/Pelvis Back: no CVA tenderness Cervical Spine: cervical ROM normal and No Cervical spine tenderness Thoracic/Lumbar Spine: thoraco-lumbar ROM normal, No pain with thoraco-lumbar ROM, No thoracic spinal tenderness and No lumbar spinal tenderness Extrem General: Yes normal to inspection, No edema and No calf tenderness Skin General: warm and dry. Normal skin color. Normal skin turgor Lesions: no lesions Rashes: no rashes Trauma: no lacerations or abrasions Wounds: no wounds Nails: normal Neuro General: patient oriented x3, gait normal and no focal neuro deficit Cranial nerves: Yes Equal, round and reactive pupils present Cognition (Neuro): normal cognition Gait exam (Neuro): Normal gait present Sensory Exam: No Sensory deficit (Neuro) Psych Appearance: grossly normal Affect: normal affect Attitude: cooperative Thought process: Normal thought process present Coding Level of Care Code Est Pt Level 4 (61814) Complex EM visit Add On G2211 Diagnoses Primary hypertension I10 Hypertension type: primary hypertension Iron deficiency anemia D50.9 Anxiety and depression F41.9; F32.A Blood in stool K92.1 Hypothyroidism, unspecified type E03.9 Hypothyroidism type: unspecified Dyspnea on exertion R06.09 Additional Codes MARCELA-7 Assessment Billing - MARCELA-7 Assessment Tool: MARCELA-7 Assessment 91048 ([id number]) PHQ-9 - 20799 - PHQ-9 Billing: Yes ([id number]) Assessment & Plan Assessment & Plan (1) Hypertension: Code(s): I10 - Essential (primary) hypertension Category: Medical Qualifiers: Hypertension type: primary hypertension Qualified Code(s): I10 - Essential (primary) hypertension Plan: Increase metoprolol ER to 25 mg daily and continue to take spironolactone and furosemide as prescribed. Follow low sodium diet instructions. Blood pressure follow-up in two weeks. (2) Iron deficiency anemia: Code(s): D50.9 - Iron deficiency anemia, unspecified Category: Medical Plan: Increase iron supplementation to 325 mg twice daily. Perform complete blood count and iron studies before the patient leaves the facility. She has an appointment to establish care with [facility] oncology and hematology for PABLO later this month. (3) Anxiety and depression: Code(s): F41.9 - Anxiety disorder, unspecified; F32.A - Depression, unspecified Category: Medical Plan: Continue sertraline as and buspirone prescribed, monitor symptoms. (4) Blood in stool: Code(s): K92.1 - Melena Category: Medical Plan: Stat referral made to [facility] gastroenterology for further evaluation. Coordination with hematology for additional workup of the anemia and possible occult bleeding. She was referred for a colonoscopy a month ago but has not been done. (5) Hypothyroidism: Code(s): E03.9 - Hypothyroidism, unspecified Category: Medical Qualifiers: Hypothyroidism type: unspecified Qualified Code(s): E03.9 - Hypothyroidism, unspecified Plan: Continue increased dose of levothyroxine as prescribed. Repeat thyroid function tests two days before the next appointment. (6) Dyspnea on exertion: Code(s): R06.09 - Other forms of dyspnea Category: Medical Plan: Monitor for symptom progression or worsening with follow-up care. Plan I discussed with the patient the urgency of managing her multiple chronic conditions, specifically focusing on hypertension and anemia. The importance of adhering to the increased dosages of her medications, notably metoprolol and iron supplements, was emphasized. I explained the necessity of further diagnost ic testing, including blood work and specialist consultations, to address the reported blood in her stools and to optimize anemia management, ensuring she agreed to answer any medical communications for scheduling purposes. I advised on maintaining a low sodium diet for hypertension control. Additionally, I confirmed with her the efficacy of her current antidepressants, mentioning no changes at this time given stable symptoms. Follow-up was scheduled in two weeks to review blood pressure and complete blood count results, with instructions to perform a non-fasting thyroid test two days prior. Orders: Orders IRON PROFILE 04/07/24 D64.9 - Anemia, unspecified TSH reflex Free T4 04/07/24 E03.9 - Hypothyroidism, unspecified Complete Blood Count Auto Diff 04/07/24 D64.9 - Anemia, unspecified Ferritin 04/07/24 D64.9 - Anemia, unspecified Referrals Gastroenterology Referral D50.9 - Iron deficiency anemia, unspecified, K92.1 - Melena Medications: Changed From ferrous sulfate 325 mg PO DAILY 30 days 30 tabs 3RF To ferrous sulfate 325 mg PO BID 60 tabs 3RF 30 days Discontinued cilostazol Discontinued Reason: Doctor's Order 100 mg PO BID 30 days 60 tabs 3RF lisinopril Discontinued Reason: Doctor's Order 10 mg PO DAILY 30 days 30 tabs 3RF Patient Instructions: - continue current treatment regimen - Increase iron supplement intake to 325 mg twice daily. - Adhere to a low sodium diet. - Perform lab work before leaving today for CBC and iron studies. - Follow up with [facility] oncology and hematology as planned later this month. - Schedule and attend gastroenterology consultations promptly. - Follow-up with [facility] as planned. - She has appointment with her rebar fabricator at [facility] on 06/02/2024; encouraged to follow-up as planned. - Complete a non-fasting thyroid test two days before the follow-up appointment. - Monitor symptoms and report any new or worsening symptoms, such as chest pain or visual changes. - Maintain medication compliance, especially with mental health and thyroid medications. - Follow up in two weeks for blood pressure and anemia management. - Answer phone calls to facilitate appointment scheduling and medical communications. Patient was informed and verbally consented to the use of an ambient scribe for clinic note documentation during this visit.
[2024-04-07 10:06] VITALS: BP 183/77; PULSE 128; RESP 20; TEMP 36.4; O2SAT 96; BMI 22.7
[2024-04-07 10:29] VITALS: BP 160/80
--- OUTSIDE RECORDS SUMMARY | 2024-04-13 17:18 | XMS_ITS | Continuity of Care Document ---
Author Organization [facility] [address] [place] [address] Phone [phone] Care Team Providers Care Jig Worker Name Role Phone Claudia York CNP Care Team Information Receive r [phone] Problems Active Problems Provider Date Osteoporosis Emanuel Cueva M.D. Onset: 0 06/16/2023 Hyperlipidemia Emanuel Cueva M.D. Onset: 0 06/16/2023 Gastroesophageal reflux disease Emanuel pugh M.D. Onset: 06/16/2023 Type 2 diabetes mellitus Emanuel Cueva M.D. Onset: 06/16/2023 Essential hypertension Emanuel Cueva M.D. O nset: 06/16/2023 Hypothyroidism Emanuel Cueva M.D. Onset: 0 06/16/2023 Chronic obstructive lung disease Emanuel bravo M.D. Onset: 06/16/2023 Chronic kidney disease stage 3 Emanuel Cueva M.D. Onset: 06/16/2023 Social History Type Date Description Comments Sex Unknown ETOH Use Denies alcohol use Tobacco Use Start: Unknown Heavy tobacco sm oker (more than 10 cigarettes/day) Allergies and adverse reactions Active Allergies Criticality Reaction Severity Comments Date Acetaminophen Unable to assess criticality 06/16/2023 Oxycodone Unable to assess criticality 06/16/2023 Medications Active Medications SIG Qnty Indications Ordering Provider Date Vitamin D (Ergocalciferol)1.25mg (64101 Ut) Capsules 1 tab by mouth every week 8caps Emanuel Cueva M.D. 06/20/2023 Lisinopril2.5mg Tablets Take 1 Tablet Orally Every Evening Unknown Clopidogrel Ovrvqvwyj90yr Tablets Take 1 Tablet By Mouth Every Day Des Sanchez MD Amlodipine Inpjdeeo30gw Tablets Take 1 Tablet By Mouth Every Day Unknown Cudyiayfhe295qk Tablets Take 1 Tablet By Mouth 2 Times A Day For 30 Days Claudia York CNP Ferrous Ronykku867(65Fe) mg Tablets Take 1 Tablet By Mouth 1 Time Each Day With Breakfast. Unknown Pramipexole Dihydrochloride0.125mg Tablets Take 2 By Mouth Daily Des Sanchez MD Omzaylaiog302kz Capsules Take 1 Capsule By Mouth Three Times A Day Unknown Sertraline [id number] Tablets Take 1 Tablet By Mouth Twice A Day Des Sanchez MD Metformin SOO187ey Tablets Take 1 Tablet By Mouth Twice A Day Des Sanchez MD Atorvastatin Ucrvxnb56kh Tablets Take 1 Tablet By Mouth Every Day Des Sanchez MD Levothyroxine Dwplct077rid Tablets Take 1 Tablet By Mouth Every Day Des Sanchez MD Vital Signs Date Vital Result Comment 06/16/2023 9:37am BP Systolic 110 mmHg BP Diastolic 70 mmHg Heart Rate 72 /min Height 64 inches 5'4 Weight 128.12 lb BMI (Body Mass Index) 22.0 kg/m2 Results Test Acquired Date Facility Test Result H/L Range N ote Basic Metabolic Panel 06/16/2023 [facility] Glucose 102 mg/dL High (70-99) BUN 24 mg/dL High (8-23) Creatinine 1.3 mg/dL High (0.5-1.0) Sodium 140 mmol/L (133-145) Potassium 5.2 mmol/L (3.6-5.2) Chloride 105 mmol/L (98-107) Bicarbonate 20 mmol/L Low (22-29) Anion Gap 15 (4-17) Calcium 10.4 mg/dL (8.6-10.5 ) Estimated GFR Creatinine 41 ML/MIN/1.7 3M2 1 Laboratory test finding 06/16/2023 [facility] 25Oh Vitamin D 14.9 NG/ML Low (20-50) Albumin 4.6 GM/DL (3.4-4.8) PTH, Intact 102 pg/mL High (15-65) Phosphorus 3.6 mg/dL (2.5-4.5) 1 Creatinine based est imated glomerular filtration (eGFR) in adults is calculated using the [employer] recommended 2020 CKD-EPI equation. Estimates GFR from serum creatinine, age and sex. Procedures Date Code Description Status 07/17/2023 NSHOWOFF No Show Office Visit Complet ed Medical Devices Description No Information Available Encounters Type Date Location Provider Dx Diagnosis Office Visit 06/16/2023 9:30a Main Office Emanuel Cueva M.D. M81.0 Age-related osteoporosis w/o current pathological fracture E83.52 Hypercalcemia E11.9 Type 2 diabetes daad itus without complications Assessments Date Code Description Provider 06/16/2023 M81.0 Age-related oste oporosis without current pathological fracture Emanuel Cueva M.D. 06/16/2023 E83.52 Hypercalcemia Emanuel escoto M.D. 06/16/2023 E11.9 Type 2 diabetes mellitus Vi Cueva M.D. Plan of Treatment 06/16/2023 - Emanuel Cueva M.D.* M81.0 Age-related osteoporosis without current pathological fracture * E83.52 Hypercalcemia * E11.9 Type 2 diabetes mellitus* New Labs:* Efvjegc-Lw-Azuwa, Ordered: 06/16/23 * Creat Clearance, Ordered: 06/16/23 * N-Telopeptide Cross Links, Urine, Ordered: 06/16/23 Functional Status Description No Information Available Mental Status Description No Information Available Referrals Description No Information Available
== END 2024-04-07 10:54 | disposition home or self-care (01) ==
PROVIDERS: PCP Nurse Practitioner Family; Visit Provider Nurse Practitioner Family
DX: I10 Essential (primary) hypertension (principal); D50.9 Iron deficiency anemia, unspecified; F41.9 Anxiety disorder, unspecified; F32.A Depression, unspecified; K92.1 Melena; E03.9 Hypothyroidism, unspecified; R06.09 Other forms of dyspnea

== ENCOUNTER 2024-04-07 10:45 | Outpatient (REF) | payer MEDICARE, SELFPAY ==
[2024-04-07 14:14] LABS: Appearance Urine Clear; Color Urine Yellow; Glucose Urine UA Negative (Negative); Leukocyte Esterase Urine Negative (Negative); Nitrite Urine Negative (Negative); PH 5.5 (5.0-9.0); Specific Gravity - Urine 1.015 (1.005-1.025); UMIC TRIGGER UACC YES; Urine Blood Trace (Negative); Urine Ketones Negative (Negative); Urine Protein 100 (2+) mg/dL (Neg-Trace)
[2024-04-07 14:15] LABS: MANUAL DIFF FLAG NO
[2024-04-07 14:20] LABS: Basophils Percent Auto 0.3 % (0-2); Eosinophils Absolute Auto 0.4 X10*3/uL (0.0-0.4); Eosinophils Percent Auto 5.6 % (0-4); Hematocrit 29.9 % (37.0-47.0); Hemoglobin 9.1 g/dl (12.0-16.0); Imm Gran Abs Auto 0.03 X10*3/uL (0.00-0.03); Imm Gran Pct Auto 0.4 % (0.0-0.4); Lymphocytes Absolute Auto 0.5 X10*3/uL (1.2-4.9); Lymphocytes Percent Auto 6.4 % (20-40); Mean Corpuscular HGB Conc 30.4 g/dl (31.0-35.0); Mean Corpuscular Hemoglobin 30.5 pg (27.0-33.0); Mean Corpuscular Volume 100.3 fL (80.0-98.0); Mean Platelet Volume 10.7 fL (9.4-12.3); Monocytes Absolute Auto 0.5 X10*3/uL (0.1-1.2); Monocytes Percent Auto 6.3 % (2-11); Neutrophils Absolute Auto 6.4 x10*3/uL (2.0-8.3); Platelet Count 225 X10*3/uL (160-400); Red Blood Count 2.98 X10*6/uL (4.20-5.50); Red Cell Distribution Width 14.6 % (11.0-16.0); White Blood Count 7.8 X10*3/uL (4.8-10.8)
[2024-04-07 14:21] LABS: Bacteria Urine None Seen (None Seen); Hyaline Casts Urine 0-2 /LPF (0-2); RBC Urine 0-2 /HPF (0-2); Squamous Epithelial Cell Urine 0-2 /HPF (0-2); WBC Urine 0-5 /HPF (0-5)
[2024-04-07 14:49] LABS: Iron 29 mcg/dL (30-160); Percent Iron Saturation 9 % (15-50); Total Iron Binding Capacity 315 mcg/dL (228-428); Unsaturated Iron Binding 286 ug/dL
[2024-04-07 15:14] LABS: Ferritin 100 ng/mL (10-250); TSH reflex Free T4 1.34 uIU/mL (0.32-4.0)
--- OUTSIDE RECORDS SUMMARY | 2024-04-13 17:45 | XMS_ITS | Continuity of Care Document ---
Author Organization [facility] [address] [place] [address] Phone [phone] Care Team Providers Care Maintenance Worker Name Role Phone Claudia York CNP Care Team Information Receive r [phone] Problems Active Problems Provider Date Osteoporosis Emanuel [...] Indications Ordering Provider Date Vitamin D (Ergocalciferol)1.25mg (08167 Ut) Capsules 1 tab by mouth every week 8caps Emanuel Cueva M.D. 06/20/2023 Lisinopril2.5mg Tablets Take 1 Tablet Orally Every Evening Unknown Clopidogrel Zvtozsjez74hj Tablets Take 1 Tablet By Mouth Every Day Des Sanchez MD Amlodipine Kbrgbaja79kn Tablets Take 1 Tablet By Mouth Every Day Unknown Zmuwbloqfk233cg Tablets Take 1 Tablet By Mouth 2 Times A Day For 30 Days Claudia York CNP Ferrous Rgqetpx975(65Fe) mg Tablets Take 1 Tablet By Mouth 1 Time Each Day With Breakfast. Unknown Pramipexole Dihydrochloride0.125mg Tablets Take 2 By Mouth Daily Des Sanchez MD Vossjapbfy149uy Capsules Take 1 Capsule By Mouth Three Times A Day Unknown Sertraline IJQ719vr Tablets Take 1 Tablet By Mouth Twice A Day Des Sanchez MD Metformin BVB786pv Tablets Take 1 Tablet By Mouth Twice A Day Des Sanchez MD Atorvastatin Dbcsmfd58cl Tablets Take 1 Tablet By Mouth Every Day Des Sanchez MD Levothyroxine Ckbwyv163bwe Tablets Take 1 Tablet By Mouth Every Day Des Sanchez MD Vital Signs Date Vital Result Comment 06/16/2023 9:37am BP Systolic 110 mmHg BP Diastolic 70 mmHg Heart Rate 72 /min Height 64 inches 5'4 Weight 128.12 lb BMI (Body Mass Index) 22.0 kg/m2 Results Test Acquired Date Facility Test Result H/L Range N ote Basic Metabolic Panel 06/16/2023 [facility] Glucose 102 mg/dL High (70-99) BUN 24 mg/dL High (8-23) Creatinine 1.3 mg/dL High (0.5-1.0) Sodium 140 mmol/L (133-145) Potassium 5.2 mmol/L (3.6-5.2) Chloride 105 mmol/L (98-107) Bicarbonate 20 mmol/L Low (22-29) Anion Gap 15 (4-17) Calcium 10.4 mg/dL (8.6-10.5 ) Estimated GFR Creatinine 41 ML/MIN/1.7 3M2 1 Laboratory test finding 06/16/2023 [facility] Lab 25Oh Vitamin D 14.9 [...] fracture E83.52 Hypercalcemia E11.9 Type 2 diabetes dada itus without complications Assessments Date Code Description Provider 06/16/2023 M81.0 Age-related oste oporosis without current pathological fracture Emanuel Cueva M.D. 06/16/2023 E83.52 Hypercalcemia Emanuel escoto M.D. 06/16/2023 E11.9 Type 2 diabetes mellitus Vi Cueva M.D. Plan of Treatment 06/16/2023 - Emanuel Cueva M.D.* M81.0 Age-related osteoporosis without current pathological fracture * E83.52 Hypercalcemia * E11.9 Type 2 diabetes mellitus* New Labs:* Lifxvey-Gq-Xljmj, Ordered: 06/16/23 * Creat Clearance, Ordered: 06/16/23 * N-Telopeptide Cross Links, Urine, Ordered: 06/16/23 Functional Status Description No Information Available Mental Status Description No Information Available Referrals Description No Information Available
== END 2024-04-07 10:46 | disposition home or self-care (01) ==
LOC: HO.WFDLDS 10:45
PROVIDERS: Visit Provider Nurse Practitioner Family
DX: I10 Essential (primary) hypertension (principal); D50.9 Iron deficiency anemia, unspecified; F41.9 Anxiety disorder, unspecified; F32.A Depression, unspecified; K92.1 Melena; E03.9 Hypothyroidism, unspecified; R06.09 Other forms of dyspnea; Z79.899 Other long term (current) drug therapy
CPT/HCPCS: 36415; 81001; 82728; 83540; 84443; 85025; 96127; 99212

== ENCOUNTER → 2024-04-13 23:59 | Outpatient (BNV) | payer MEDICARE, SELFPAY ==
--- NOTE | 2024-04-13 16:13 | A.OFFVIS_ITS ---
Intake Visit Reasons: Remote device check- Biotronik Allergies acetaminophen [From Percocet] Allergy (Intermediate, Verified 04/07/24 10:24) Itching oxycodone [From Percocet] Allergy (Intermediate, Verified 04/07/24 10:24) Itching Seasonal Allergies Allergy (Intermediate, Verified 04/07/24 10:24) Itchy Eyes ibuprofen [From Motrin] Allergy (Unknown, Verified 04/07/24 10:24) Swelling wheat Adverse Reaction (Unknown, Verified 04/07/24 10:24) Diarrhea lactose Adverse Reaction (Verified 04/07/24 10:24) Diarrhea [facility] Medical History (Updated 04/07/24 @ 11:40 by Jaylen Taylor CNP) Screening for lung cancer Colon cancer screening Normal physical examination, routine Viral upper respiratory illness Laboratory tests ordered as part of a complete physical exam (CPE) Cardiac pacemaker in situ Runny nose Smoking 1/2 pack a day or less SOB (shortness of breath) on exertion Smoking greater than 30 pack years Diarrhea Osteopenia Breast cancer screening Chronic diarrhea Skin tear of left upper arm without complication Aortic stenosis Restless leg syndrome No pertinent family history Hyperlipidemia Chronic back pain Osteoarthritis GERD (gastroesophageal reflux disease) Anxiety and depression Type 2 diabetes mellitus Hypertension CKD (chronic kidney disease) stage 3, GFR 30-59 ml/min Hypothyroidism Cataracts, bilateral COPD (chronic obstructive pulmonary disease) Deafness in right ear Stroke Surgical History History of esophagogastroduodenoscopy (EGD) H/O colonoscopy History of tonsillectomy History of appendectomy H/O: hysterectomy History of back surgery H/O thyroidectomy H/O endarterectomy S/P cardiac pacemaker procedure Family History Mother Bladder cancer Brother Bladder cancer Social History Household Members: Children Housing: House Do you presently have visiting nurse or other home services: No Patient Tobacco Use Status: Former Tobacco user Tobacco use type: Cigarette Cigarette Packs Per Day: 0.25 Cigarettes Per Day: 10 Years Smoked: 70 e-Cigarette/Vaping Use: Never Used Substance Use Type: Marijuana service: No Current occupational status: retired Cognitive needs: No Hearing needs: No Vision needs: No Office Procedures Cardiac Device Check Cardiac Device Check Details: Remote pacemaker report generated 04/13/2024. Pacemaker function is adequate [id number] Cardiac Device Interrogation, pacemaker Procedure code (CPT) selection complete Assessment & Plan Assessment & Plan (1) Cardiac pacemaker in situ: Comment: Biotronik dual-chamber pacemaker in place, placed in 2016 Code(s): Z95.0 - Presence of cardiac pacemaker Category: Medical Plan: See above Coding Level of Care Code Procedure Only Diagnoses Cardiac pacemaker in situ Z95.0 CPT Codes Cardiac Device Check - Cardiac Device 12: [id number] Cardiac Device Interrogation, pacemaker ([id number])
== END ==
PROVIDERS: PCP Nurse Practitioner Family; Visit Provider Internal Medicine Cardiovascular Disease
DX: Z45.018 Encounter for adjustment and management of other part of cardiac pacemaker (principal)
CPT/HCPCS: 93294

== ENCOUNTER 2024-04-20 09:32 | Outpatient (REF) | payer MEDICARE, SELFPAY ==
--- OUTSIDE RECORDS SUMMARY | 2024-04-20 09:35 | XMS_ITS | Continuity of Care Document ---
Author Organization [facility] [address] [place] [address] Phone [phone] Care Team Providers Care Professor Of Environmental Science Name Role Phone Claudia York CNP Care Team Information Receive r [phone] Problems Active Problems Provider Date Osteoporosis Emanuel [...] Indications Ordering Provider Date Vitamin D (Ergocalciferol)1.25mg (85871 Ut) Capsules 1 tab by mouth every week 8caps Emanuel Cueva M.D. 06/20/2023 Lisinopril2.5mg Tablets Take 1 Tablet Orally Every Evening Unknown Clopidogrel Xpigcekxl94fg Tablets Take 1 Tablet By Mouth Every Day Des Sanchez MD Amlodipine Ialakuyt57te Tablets Take 1 Tablet By Mouth Every Day Unknown Ezvnljtivs694zi Tablets Take 1 Tablet By Mouth 2 Times A Day For 30 Days Claudia York CNP Ferrous Sfdxgms248(65Fe) mg Tablets Take 1 Tablet By Mouth 1 Time Each Day With Breakfast. Unknown Pramipexole Dihydrochloride0.125mg Tablets Take 2 By Mouth Daily Des Sanchez MD Pvhdguoiyq554zi Capsules Take 1 Capsule By Mouth Three Times A Day Unknown Sertraline FUM228wz Tablets Take 1 Tablet By Mouth Twice A Day Des Sanchez MD Metformin KHF272ev Tablets Take 1 Tablet By Mouth Twice A Day Des Sanchez MD Atorvastatin Evagrce38fx Tablets Take 1 Tablet By Mouth Every Day Des Sanchez MD Levothyroxine Osralr235xai Tablets Take 1 Tablet By Mouth Every Day Des Sanchez MD Vital Signs Date Vital Result Comment 06/16/2023 9:37am BP Systolic 110 mmHg BP Diastolic 70 mmHg Heart Rate 72 /min Height 64 inches 5'4 Weight 128.12 lb BMI (Body Mass Index) 22.0 kg/m2 Results Test Acquired Date Facility Test Result H/L Range N ote Basic Metabolic Panel 06/16/2023 [facility] Glucose 102 mg/dL High (70-99) BUN 24 mg/dL High (8-23) Creatinine 1.3 mg/dL High (0.5-1.0) Sodium 140 mmol/L (133-145) Potassium 5.2 mmol/L (3.6-5.2) Chloride 105 mmol/L (98-107) Bicarbonate 20 mmol/L Low (22-29) Anion Gap 15 (4-17) Calcium 10.4 mg/dL (8.6-10.5 ) Estimated GFR Creatinine 41 ML/MIN/1.7 3M2 1 Laboratory test finding 06/16/2023 [facility] 25Oh Vitamin D 14.9 [...] E11.9 Type 2 diabetes mellitus* New Labs:* Wydfjwc-Ux-Ydzqx, Ordered: 06/16/23 * Creat Clearance, Ordered: 06/16/23 * N-Telopeptide Cross Links, Urine, Ordered: 06/16/23 Functional Status Description No Information Available Mental Status Description No Information Available Referrals Description No Information Available
[2024-04-20 11:13] LABS: Hematocrit 29.4 % (37.0-47.0); Hemoglobin 9.4 g/dl (12.0-16.0); Mean Corpuscular Hemoglobin 30.4 pg (27.0-33.0); Mean Corpuscular Volume 95.1 fL (80.0-98.0); Mean Platelet Volume 9.6 fL (9.4-12.3); Platelet Count 253 X10*3/uL (160-400); Red Blood Count 3.09 X10*6/uL (4.20-5.50); Red Cell Distribution Width 13.3 % (11.0-16.0); White Blood Count 5.9 X10*3/uL (4.8-10.8)
[2024-04-20 11:30] LABS: Iron 29 mcg/dL (30-160); Percent Iron Saturation 11 % (15-50); Total Iron Binding Capacity 271 mcg/dL (228-428); Unsaturated Iron Binding 242 ug/dL
== END 2024-04-20 09:33 | disposition home or self-care (01) ==
LOC: HO.WFDLDS 09:32
PROVIDERS: Visit Provider Nurse Practitioner Family
DX: D50.9 Iron deficiency anemia, unspecified (principal)
CPT/HCPCS: 36415; 83540; 85027

== ENCOUNTER 2024-04-21 10:24 | Outpatient (AMB) | payer MEDICARE, SELFPAY ==
--- NOTE | 2024-04-21 10:26 | MHC.PC.OV ---
Vital Signs 04/21/24 10:43 04/21/24 11:10 Height 5 ft 4 in Weight 124 lb BMI 21.3 BP 203/81 H 150/70 H Blood Pressure Location Rt brachial Rt brachial Position Sitting Sitting Respiration 16 Pulse 81 72 Pulse Source Pulse Oximeter Auscultation Temp 97.5 F Temp Source Oral Pulse Oximetry (%) 98 Oxygen Delivery Method Room Air Intake Visit Reasons: f/u blood pressure and anemia Intake Note: patient here for follow up on blood pressure and anemia Books Salesperson Required: No Is last menstrual period known: No Post menopausal: No Patient : No Allergies acetaminophen [From Percocet] Allergy (Intermediate, Verified 04/21/24 11:01) Itching oxycodone [From Percocet] Allergy (Intermediate, Verified 04/21/24 11:01) Itching Seasonal Allergies Allergy (Intermediate, Verified 04/21/24 11:01) Itchy Eyes ibuprofen [From Motrin] Allergy (Unknown, Verified 04/21/24 11:01) Swelling wheat Adverse Reaction (Unknown, Verified 04/21/24 11:01) Diarrhea lactose Adverse Reaction (Verified 04/21/24 11:01) Diarrhea Medication List - Last Reconciled 04/21/24 by Jaylen Taylor CNP acetaminophen ER (Tylenol 8 Hour) 650 mg PO Q8H PRN aspirin (Adult Low Dose Aspirin) 81 mg PO DAILY atorvastatin 80 mg PO BEDTIME 30 days olunxpvaol-gnprfhwx-fnduddxdzm 160-9-4.8 mcg/actuation (Breztri Aerosphere) 1 inh inhalation BID buspirone 7.5 mg PO BID cetirizine (Zyrtec) 10 mg PO DAILY 30 days clopidogrel 75 mg PO DAILY 30 days diphenhydramine-acetaminophen 25-500 mg (Acetaminophen PM) 2 tabs PO BEDTIME ezetimibe 10 mg PO DAILY famotidine 10 mg PO DAILY ferrous sulfate 325 mg PO BID 30 days folic acid 0.4 mg PO DAILY 30 days furosemide 20 mg PO DAILY gabapentin 400 mg PO TID levothyroxine 137 mcg PO DAILY mecobalamin (vitamin B12) 1,000 mcg PO DAILY metoprolol succinate ER 12.5 mg (1/2 x 25 mg) PO DAILY 30 days omeprazole 20 mg PO DAILY pantoprazole 40 mg PO BID pramipexole 0.25 mg (2 x 0.125 mg) PO BEDTIME 30 days psyllium husk (Metamucil) 1 tbsp PO DAILY sertraline 100 mg PO BID spironolactone 25 mg PO DAILY sucralfate 4 grams (4 x 1 gram) PO QNOON Tobacco use date assessed: 04/21/24 Fall risk assessment: 2 + Falls in past year Last assessed Fall Risk: 04/21/24 Dental Screening Dental Screen Date: 04/21/24 Did you have a dental visit in the last 12 months?: No Did you have a dental problem in the last 6 months where you did not have access to dental care?: No Was dental information given to patient?: Patient declined HPI HPI Comments History of Present Illness Details 78-year-old female presents for hypertension and iron-deficiency anemia follow-up. She admits to taking her medications without adverse reaction. She has been taking ferrous sulfate once daily instead of prescribed twice daily. She has a VNA nurse that helps her with medication management and blood pressure monitoring 3 times weekly. She notes chronic neck burning pain which waxes and wanes. The pain has been present for several years. Reports controlled anxiety and depressive symptoms. [facility] Medical History (Updated 04/21/24 @ 11:34 by Jaylen Taylor CNP) Screening for lung cancer Colon cancer screening Normal physical examination, routine Viral upper respiratory illness Laboratory tests ordered as part of a complete physical exam (CPE) Cardiac pacemaker in situ Runny nose Smoking 1/2 pack a day or less SOB (shortness of breath) on exertion Smoking greater than 30 pack years Diarrhea Osteopenia Breast cancer screening Chronic diarrhea Skin tear of left upper arm without complication Aortic stenosis Restless leg syndrome No pertinent family history Hyperlipidemia Chronic back pain Osteoarthritis GERD (gastroesophageal reflux disease) Anxiety and depression Type 2 diabetes mellitus Hypertension CKD (chronic kidney disease) stage 3, GFR 30-59 ml/min Hypothyroidism Cataracts, bilateral COPD (chronic obstructive pulmonary disease) Deafness in right ear Stroke Surgical History History of esophagogastroduodenoscopy (EGD) H/O colonoscopy History of tonsillectomy History of appendectomy H/O: hysterectomy History of back surgery H/O thyroidectomy H/O endarterectomy S/P cardiac pacemaker procedure Family History Mother Bladder cancer Brother Bladder cancer Social History Household Members: Children Housing: House Do you presently have visiting nurse or other home services: No Patient Tobacco Use Status: Former Tobacco user Tobacco use type: Cigarette Cigarette Packs Per Day: 0.25 Cigarettes Per Day: 10 Years Smoked: 70 e-Cigarette/Vaping Use: Never Used Substance Use Type: Marijuana service: No Current occupational status: retired Cognitive needs: No Hearing needs: No Vision needs: No Questionnaire PHQ-9 Over the last 2 weeks, how often have you been bothered by any of the following problems? 1. Little interest or pleasure in doing things: not at all 2. Feeling down, depressed, or hopeless: not at all 3. Trouble falling or staying asleep, or sleeping too much: not at all 4. Feeling tired or having little energy: nearly every day 5. Poor appetite or overeating: nearly every day 6. Feeling bad about yourself - or that you are a failure or have let yourself or your family down: not at all 7. Trouble concentrating on things, such as reading the newspaper or watching television: not at all 8. Moving or speaking so slowly that other people could have noticed. Or the opposite - being so fidgety or restless that you have been moving around a lot more than usual: not at all 9. Thoughts that you would be better off or of hurting yourself in some way: not at all Total score: 6 Depression Screening Interpretation: Positive Depression Screening Follow-up: Existing condition and In treatment Depression Screening Done: Yes 61503 - PHQ-9 Billing: Yes Source: Developed by Drs. Bonifacio Bethea, Danni Villa, Rico Wilcox and colleagues, with an educational saranya from [employer]. Thrive Questionnaire Date Thrive assessed: 04/21/24 I am a: Patient What is your living situation today?: I have a steady place to live Within the past 12 months, did the food you bought not last and you didn't have the money to get more?: Never true Within the past 12 months, did you worry whether your food would run out before you got money to buy more?: Never true Do you have trouble paying for medicines?: Yes Do you have trouble getting transportation to medical appointments?: No Do you have trouble paying your heating and electricity bill?: No Do you have trouble taking care of your child, family member or friend?: No Do you have trouble with day-to-day activities such as bathing, preparing meals, shopping, managing finances, etc.?: Yes Are you currently unemployed and looking for a job?: No Are you interested in more education?: No Please select the resources that you would like help with: None Currently or been in a relationship where the following occur: No concerns reported THRIVE Score: 0 AUDIT C Alcohol Use Questionnaire (AUDIT-C) 1. How often do you have a drink containing alcohol?: Never Total Score: 0 MARCEAL-7 AMB Questionnaire MARCELA-7 Date MARCELA - 7 assessed: 04/21/24 Feeling nervous, anxious, or on edge: 0 = Not at all Not being able to stop or control worryin = Not at all Worrying too much about different things: 0 = Not at all Trouble relaxin = Nearly every day Being so restless that it is hard to sit still: 1 = Several days Becoming easily annoyed or irritable: 0 = Not at all Feeling afraid as if something awful might happen: 0 = Not at all Total MARCELA-7 score (0-4 normal; 5-9 mild; 10-14 moderate; 15-21 severe): 4 Source: Developed by Drs. Bonifacio Bethea, Danni Villa, Rico Wilcox and colleagues, with an educational saranya from [employer]. MARCELA-7 Assessment Billing MARCELA-7 Assessment Tool: MARCELA-7 Assessment 83055 Review of Systems Const Details: Const Denies chills, Denies fatigue, Denies fever(s), Denies headache(s) and Denies weakness ENT Denies dizziness and Denies headache(s) Card Denies chest pain, Denies lightheadedness, Denies dyspnea and Denies other (Palpitations) Resp Denies cough, Denies dyspnea, Denies wheezing and Denies other ( shortness of breath) GI Denies abdominal pain, Denies melena, Denies hematochezia, Denies change in bowel habits, Denies dyspepsia and Denies nausea Denies hematuria and Denies dysuria Musc Reports as per HPI Skin/Breast Denies rash, Denies unusual bruising and Denies wounds Neuro Denies abnormal gait, Denies dizziness, Denies headache(s), Denies memory loss, Denies numbness, Denies Sensory deficit (Neuro), Denies tingling and Denies weakness Psych Denies anxiety, Denies depression, Denies memory loss Endo Denies cold intolerance, Denies fatigue, Denies heat intolerance, Denies polydipsia and Denies polyuria Aller/Immun Denies wheezing Physical exam (Primary Care) Vital Signs: Last Vital Signs Temp 97.5 F 04/21/24 10:43 Pulse 81 04/21/24 10:43 Resp 16 04/21/24 10:43 BP 203/81 H 04/21/24 10:43 Pulse Ox 98 04/21/24 10:43 Oxygen Delivery Method Room Air 04/21/24 10:43 BMI result Body Mass Index 21.3 Tobacco/Smoking Status: Tobacco use Status Tobacco use date assessed 04/21/24 04/21/24 10:45 Patient Tobacco Use Status Former Tobacco user 04/21/24 10:28 Tobacco use type Cigarette 04/21/24 10:28 e-Cigarette/Vaping Use Never Used 04/21/24 10:28 Depression Screening Interpretation: Positive Depression Screening Follow-up: Existing condition and In treatment Thrive Assessment: Date of Thrive Assessment Date Thrive assessed 04/21/24 04/21/24 10:28 Currently or been in a relationship where the following occur: No concerns reported Const Other: General: no acute distress and well developed Nutritional Appearance: well nourished Orientation/consciousness: patient oriented x3 HENMT Head: Yes normocephalic and Yes atraumatic Eyes General: appearance normal, both eyes and all related structures Pupils: Equal, round and reactive pupils present EOM: EOMs intact bilaterally Resp Effort & Inspection: normal respiratory effort Auscultation: clear to auscultation bilaterally Cardio Rate: regular rate Rhythm: regular rhythm Heart sounds: S1 normal heart sound present, S2 normal heart sound present, no gallops, no murmurs and no rubs GI Palpation (GI): No Abdominal aortic bruit present, Soft to palpation, nontender, No hepatosplenomegaly present and No Rebound tenderness present Auscultation: normal bowel sounds General: Yes no CVA tenderness Back/Spine/Pelvis Back: no CVA tenderness Cervical Spine: cervical ROM normal and No Cervical spine tenderness Thoracic/Lumbar Spine: thoraco-lumbar ROM normal, No pain with thoraco-lumbar ROM, No thoracic spinal tenderness and No lumbar spinal tenderness Extrem General: Yes normal to inspection, No edema and No calf tenderness Skin General: warm and dry. Normal skin color. Normal skin turgor Neuro General: patient oriented x3, gait normal and no focal neuro deficit Cranial nerves: Yes Equal, round and reactive pupils present Cognition (Neuro): normal cognition Gait exam (Neuro): Normal gait present Sensory Exam: No Sensory deficit (Neuro) Psych Appearance: grossly normal Affect: normal affect Attitude: cooperative Thought process: Normal thought process present Results AMB Hemoglobin A1c AMB Hemoglobin A1c 5.4 % Last Edit by Vandana Wilkinson on 04/21/24 11:49 Coding Level of Care Code Est Pt Level 4 (43168) Diagnoses Primary hypertension I10 Hypertension type: primary hypertension Iron deficiency anemia D50.9 Chronic neck pain M54.2; G89.29 Type 2 diabetes mellitus E11.9 Diabetes mellitus complication status: without complication Anxiety and depression F41.9; F32.A Additional Codes MARCELA-7 Assessment Billing - MARCELA-7 Assessment Tool: MARCELA-7 Assessment 76284 ([id number]) PHQ-9 - 88940 - PHQ-9 Billing: Yes ([id number]) Assessment & Plan Assessment & Plan (1) Hypertension: Code(s): I10 - Essential (primary) hypertension Category: Medical Qualifiers: Hypertension type: primary hypertension Qualified Code(s): I10 - Essential (primary) hypertension Plan: Resting blood pressure is 150/70, above goal of less than 140/90. Will increase metoprolol to 25 mg daily. Continue to take furosemide and spironolactone as prescribed. Low-sodium diet encouraged. Follow-up in 2-3 weeks or sooner with symptoms or concerns. Verbalized understanding and agreed with the plan. (2) Iron deficiency anemia: Code(s): D50.9 - Iron deficiency anemia, unspecified Category: Medical Plan: Recent RBC and H&H levels the low, 3.09 and 9.4/29.4 respectively. Iron level is slightly low, 29, TIBC is 271. Encouraged to take ferrous sulfate twice daily. Follow-up with Oncology/Hematology as planned later this month. Return with symptoms or concerns. Verbalized understanding and agreed with treatment plan. (3) Chronic neck pain: Code(s): M54.2 - Cervicalgia; G89.29 - Other chronic pain Category: Medical Plan: Will increase gabapentin to 600 mg twice daily; advised to take as prescribed. Continue to take Tylenol as prescribed. Warm/cool compresses encouraged. Follow-up with worsening or new symptoms. Verbalized understanding and agreed with treatment plan. (4) Type 2 diabetes mellitus: Code(s): E11.9 - Type 2 diabetes mellitus without complications Category: Medical Qualifiers: Diabetes mellitus complication status: without complication Plan: Diet-controlled diabetes. A1c today is 5.4%. Healthy diet and routine exercise encouraged. Verbalized understanding and agreed with the plan. (5) Anxiety and depression: Code(s): F41.9 - Anxiety disorder, unspecified; F32.A - Depression, unspecified Category: Medical Plan: She has been taking sertraline 100 mg twice daily. Sertraline 100 mg daily ordered; take as prescribed. Continue to take buspirone 7.5 mg twice daily. Routine exercise encouraged. Follow-up with worsening or new symptoms. Verbalized understanding and agreed with the treatment plan. Orders: Orders AMB Hemoglobin A1c Today Jaylen Taylor CNP Z13.9 - Encounter for screening, unspecified Medications: New gabapentin 600 mg PO BID 30 days 60 tabs 3RF Jaylen Taylor CNP Changed From metoprolol succinate ER 12.5 mg (1/2 x 25 mg) PO DAILY 30 days 15 tabs 3RF To metoprolol succinate ER 25 mg PO DAILY 30 days 30 tabs 3RF Jaylen Taylor CNP From famotidine 20 mg PO DAILY 30 tabs 6RF To famotidine 10 mg PO DAILY August RIGO Chatterjee From sertraline 100 mg PO BID To sertraline 100 mg PO .QD 30 days 30 tabs 3RF Jaylen Taylor CNP Discontinued pkasbuhhan-vudoinen-uuwuhoknxd 160-9-4.8 mcg/actuation (Breztri Aerosphere) Discontinued Reason: Change Referral Type 1 inh inhalation BID
--- OUTSIDE RECORDS SUMMARY | 2024-04-21 10:29 | XMS_ITS | Continuity of Care Document ---
Author Organization [facility] [address] [facility] [address] [place] [address] Phone [phone] Care Team Providers Care Sales Record Clerk Name Role Phone Claudia York CNP Care Team Information Receive r [phone] Problems Active Problems Provider Date Osteoporosis Emanuel [...] Indications Ordering Provider Date Vitamin D (Ergocalciferol)1.25mg (28300 Ut) Capsules 1 tab by mouth every week 8caps Emanuel Cueva M.D. 06/20/2023 Lisinopril2.5mg Tablets Take 1 Tablet Orally Every Evening Unknown Clopidogrel [id number] Tablets Take 1 Tablet By Mouth Every Day Des Sanchez MD Amlodipine Yqjzrkyc59xw Tablets Take 1 Tablet By Mouth Every Day Unknown [id number] Tablets Take 1 Tablet By Mouth 2 Times A Day For 30 Days Claudia York CNP Ferrous Mrtdhgb975(65Fe) mg Tablets Take 1 Tablet By Mouth 1 Time Each Day With Breakfast. Unknown Pramipexole Dihydrochloride0.125mg Tablets Take 2 By Mouth Daily Des Sanchez MD [id number] Capsules Take 1 Capsule By Mouth Three Times A Day Unknown Sertraline [id number] Tablets Take 1 Tablet By Mouth Twice A Day Des Sanchez MD Metformin [id number] Tablets Take 1 Tablet By Mouth Twice A Day Des Sanchez MD Atorvastatin Dwauzbo19zk Tablets Take 1 Tablet By Mouth Every Day Des Sanchez MD Levothyroxine Fsphej261qsa Tablets Take 1 Tablet By Mouth Every Day Des Sanchez MD Vital Signs Date Vital Result Comment 06/16/2023 9:37am BP Systolic 110 mmHg BP Diastolic 70 mmHg Heart Rate 72 /min Height 64 inches 5'4 Weight 128.12 lb BMI (Body Mass Index) 22.0 kg/m2 Results Test Acquired Date Facility Test Result H/L Range N ote Basic Metabolic Panel 06/16/2023 [facility] Glucose 102 mg/dL High (70-99) BUN 24 mg/dL High (8-23) Creatinine 1.3 mg/dL High (0.5-1.0) Sodium 140 mmol/L (133-145) Potassium 5.2 mmol/L (3.6-5.2) Chloride 105 mmol/L (98-107) Bicarbonate 20 mmol/L Low (22-29) Anion Gap 15 (4-17) Calcium 10.4 mg/dL (8.6-10.5 ) Estimated GFR Creatinine 41 ML/MIN/1.7 3M2 1 Laboratory test finding 06/16/2023 [facility] 25Oh Vitamin D 14.9 NG/ML [...] E11.9 Type 2 diabetes mellitus* New Labs:* Pphhjll-Do-Jadgb, Ordered: 06/16/23 * Creat Clearance, Ordered: 06/16/23 * N-Telopeptide Cross Links, Urine, Ordered: 06/16/23 Functional Status Description No Information Available Mental Status Description No Information Available Referrals Description No Information Available
[2024-04-21 10:43] VITALS: BP 203/81; PULSE 81; RESP 16; TEMP 36.4; O2SAT 98; BMI 21.3
[2024-04-21 11:10] VITALS: BP 150/70; PULSE 72
== END 2024-04-21 11:56 | disposition home or self-care (01) ==
PROVIDERS: PCP Nurse Practitioner Family; Visit Provider Nurse Practitioner Family
DX: I10 Essential (primary) hypertension (principal); D50.9 Iron deficiency anemia, unspecified; E11.9 Type 2 diabetes mellitus without complications; M54.2 Cervicalgia; G89.29 Other chronic pain; F41.9 Anxiety disorder, unspecified; F32.A Depression, unspecified

== ENCOUNTER 2024-04-21 10:24 | Outpatient (REF) | payer MEDICARE, SELFPAY ==
[2024-04-21 11:59] LABS: Appearance Urine Cloudy; Color Urine Yellow; Glucose Urine UA Negative (Negative); Leukocyte Esterase Urine Negative (Negative); Nitrite Urine Negative (Negative); Specific Gravity - Urine 1.015 (1.005-1.025); UMIC TRIGGER UACC YES; Urine Blood Negative (Negative); Urine Ketones Negative (Negative); Urine Protein 300 (3+) mg/dL (Neg-Trace)
[2024-04-21 12:10] LABS: Bacteria Urine None Seen (None Seen); RBC Urine 0-2 /HPF (0-2); Squamous Epithelial Cell Urine 0-2 /HPF (0-2); WBC Urine 0-5 /HPF (0-5)
== END 2024-04-21 10:25 | disposition home or self-care (01) ==
LOC: HO.LNP 10:24
PROVIDERS: PCP Nurse Practitioner Family; Visit Provider Nurse Practitioner Family
DX: I10 Essential (primary) hypertension (principal); D50.9 Iron deficiency anemia, unspecified; G89.29 Other chronic pain; M54.2 Cervicalgia; E11.9 Type 2 diabetes mellitus without complications; F41.9 Anxiety disorder, unspecified; F32.A Depression, unspecified; Z79.899 Other long term (current) drug therapy
CPT/HCPCS: 81001; 83036; 96127; 99212

== ENCOUNTER 2024-05-07 09:43 | Outpatient (AMB) | payer MEDICARE, SELFPAY ==
--- NOTE | 2024-05-07 09:53 | MHC.OFFVIS ---
Intake Visit Reasons: Hypertension Intake Note: patient here to follow up on HTN Paste Up Worker Required: No Allergies acetaminophen [From Percocet] Allergy (Intermediate, Verified 05/07/24 09:57) Itching oxycodone [From Percocet] Allergy (Intermediate, Verified 05/07/24 09:57) Itching Seasonal Allergies Allergy (Intermediate, Verified 05/07/24 09:57) Itchy Eyes ibuprofen [From Motrin] Allergy (Unknown, Verified 05/07/24 09:57) Swelling wheat Adverse Reaction (Unknown, Verified 05/07/24 09:57) Diarrhea lactose Adverse Reaction (Verified 05/07/24 09:57) Diarrhea Is last menstrual period known: No Post menopausal: No Patient : No PFSH Medical History (Updated 04/21/24 @ 11:34 by Jaylen Taylor CNP) Screening for lung cancer Colon cancer screening Normal physical examination, routine Viral upper respiratory illness Laboratory tests ordered as part of a complete physical exam (CPE) Cardiac pacemaker in situ Runny nose Smoking 1/2 pack a day or less SOB (shortness of breath) on exertion Smoking greater than 30 pack years Diarrhea Osteopenia Breast cancer screening Chronic diarrhea Skin tear of left upper arm without complication Aortic stenosis Restless leg syndrome No pertinent family history Hyperlipidemia Chronic back pain Osteoarthritis GERD (gastroesophageal reflux disease) Anxiety and depression Type 2 diabetes mellitus Hypertension CKD (chronic kidney disease) stage 3, GFR 30-59 ml/min Hypothyroidism Cataracts, bilateral COPD (chronic obstructive pulmonary disease) Deafness in right ear Stroke Surgical History History of esophagogastroduodenoscopy (EGD) H/O colonoscopy History of tonsillectomy History of appendectomy H/O: hysterectomy History of back surgery H/O thyroidectomy H/O endarterectomy S/P cardiac pacemaker procedure Family History Mother Bladder cancer Brother Bladder cancer Social History Household Members: Children Housing: House Do you presently have visiting nurse or other home services: No Patient Tobacco Use Status: Former Tobacco user Tobacco use type: Cigarette Cigarette Packs Per Day: 0.25 Cigarettes Per Day: 10 Years Smoked: 70 e-Cigarette/Vaping Use: Never Used Substance Use Type: Marijuana service: No Current occupational status: retired Cognitive needs: No Hearing needs: No Vision needs: No Coding
--- NOTE | 2024-05-07 10:04 | A.OFFPC_ITS ---
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 Required: No Is last menstrual period known: No Post menopausal: No Patient : No Allergies acetaminophen [From Percocet] Allergy (Intermediate, Verified 05/07/24 10:13) Itching oxycodone [From Percocet] Allergy (Intermediate, Verified 05/07/24 10:13) Itching Seasonal Allergies Allergy (Intermediate, Verified 05/07/24 10:13) Itchy Eyes ibuprofen [From Motrin] Allergy (Unknown, Verified 05/07/24 10:13) Swelling wheat Adverse Reaction (Unknown, Verified 05/07/24 10:13) Diarrhea lactose Adverse Reaction (Verified 05/07/24 10:13) Diarrhea Medication List - Last Reconciled 05/07/24 by Jaylen Taylor CNP acetaminophen ER (Tylenol 8 Hour) 650 mg PO Q8H PRN aspirin (Adult Low Dose Aspirin) 81 mg PO DAILY atorvastatin 80 mg PO BEDTIME 30 days buspirone 7.5 mg PO BID cetirizine (Zyrtec) 10 mg PO DAILY 30 days clopidogrel 75 mg PO DAILY 30 days diphenhydramine-acetaminophen 25-500 mg (Acetaminophen PM) 2 tabs PO BEDTIME ezetimibe 10 mg PO DAILY famotidine 10 mg PO DAILY ferrous sulfate 325 mg PO BID 30 days folic acid 0.4 mg PO DAILY 30 days furosemide 20 mg PO DAILY gabapentin 600 mg PO BID 30 days levothyroxine 137 mcg PO DAILY mecobalamin (vitamin B12) 1,000 mcg PO DAILY metoprolol succinate ER 25 mg PO DAILY 30 days pantoprazole 40 mg PO BID pramipexole 0.25 mg (2 x 0.125 mg) PO BEDTIME 30 days psyllium husk (Metamucil) 1 tbsp PO DAILY sertraline 100 mg PO .QD 30 days spironolactone 25 mg PO DAILY sucralfate 4 grams (4 x 1 gram) PO QNOON Tobacco use date assessed: 05/07/24 Fall risk assessment: 2 + Falls in past year Last assessed Fall Risk: 05/07/24 Dental Screening Dental Screen Date: 05/07/24 Did you have a dental visit in the last 12 months?: Yes Did you have a dental problem in the last 6 months where you did not have access to dental care?: No Was dental information given to patient?: Patient has dentist HPI HPI Comments History of Present Illness Details 78-year-old female presents for hyperten marcella follow-up. She admits to taking her medications as prescribed without adverse reactions. She [place] [facility] [place]. She started smoking again 2 weeks ago. She smokes 10-12 cigarettes daily. Declines medication treatment for smoking cessation at the time. [facility] Medical History (Updated 04/21/24 @ 11:34 by Jaylen Taylor CNP) Screening for lung cancer Colon cancer screening Normal physical examination, routine Viral upper respiratory illness Laboratory tests ordered as part of a complete physical exam (CPE) Cardiac pacemaker in situ Runny nose Smoking 1/2 pack a day or less SOB (shortness of breath) on exertion Smoking greater than 30 pack years Diarrhea Osteopenia Breast cancer screening Chronic diarrhea Skin tear of left upper arm without complication Aortic stenosis Restless leg syndrome No pertinent family history Hyperlipidemia Chronic back pain Osteoarthritis GERD (gastroesophageal reflux disease) Anxiety and depression Type 2 diabetes mellitus Hypertension CKD (chronic kidney disease) stage 3, GFR 30-59 ml/min Hypothyroidism Cataracts, bilateral COPD (chronic obstructive pulmonary disease) Deafness in right ear Stroke Surgical History History of esophagogastroduodenoscopy (EGD) H/O colonoscopy History of tonsillectomy History of appendectomy H/O: hysterectomy History of back surgery H/O thyroidectomy H/O endarterectomy S/P cardiac pacemaker procedure Family History Mother Bladder cancer Brother Bladder cancer Social History Household Members: Children Housing: House Do you presently have visiting nurse or other home services: No Patient Tobacco Use Status: Current everyday Tobacco user Tobacco use type: Cigarette Cigarette Packs Per Day: 0.5 Cigarettes Per Day: 12 Years Smoked: 70 e-Cigarette/Vaping Use: Never Used Substance Use Type: Marijuana service: No Current occupational status: retired Current occupational exposures/hazards: No Cognitive needs: No Hearing needs: No Vision needs: No Questionnaire Thrive Questionnaire Date Thrive assessed: 05/07/24 MARCELA-7 AMB Questionnaire MARCELA-7 Date MARCELA - 7 assessed: 04/21/24 Source: Developed by Drs. Bonifacio Bethea, Danni Villa, Rico Wilcox and colleagues, with an educational saranya from [employer]. Review of Systems Const Details: Const Denies chills, Denies fatigue, Denies fever(s), Denies headache(s) and Denies weakness ENT Denies dizziness and Denies headache(s) Card Denies chest pain, Denies lightheadedness, Denies dyspnea and Denies other (Palpitations) Resp Denies cough, Denies dyspnea, Denies wheezing and Denies other ( shortness of breath) GI Denies abdominal pain, Denies melena, Denies hematochezia, Denies change in bowel habits, Denies dyspepsia and Denies nausea Denies hematuria and Denies dysuria Musc Denies abnormal gait, Denies myalgias, Denies arthralgias, Denies numbness and Denies tingling Skin/Breast Denies rash, Denies unusual bruising and Denies wounds Neuro Denies abnormal gait, Denies dizziness, Denies headache(s), Denies memory loss, Denies numbness, Denies Sensory deficit (Neuro), Denies tingling and Denies weakness Psych Denies anxiety, Denies depression, Denies memory loss Endo Denies cold intolerance, Denies fatigue, Denies heat intolerance, Denies polydipsia and Denies polyuria Aller/Immun Denies wheezing Physical exam (Primary Care) Vital Signs: Last Vital Signs Temp 97.8 F 05/07/24 10:06 Pulse 74 05/07/24 10:06 Resp 16 05/07/24 10:06 BP 181/73 H 05/07/24 10:06 Pulse Ox 100 05/07/24 10:06 Oxygen Delivery Method Room Air 05/07/24 10:06 BMI result Body Mass Index 20.8 Tobacco/Smoking Status: Tobacco use Status Tobacco use date assessed 05/07/24 05/07/24 10:09 Patient Tobacco Use Status Current everyday Tobacco 05/07/24 10:09 Tobacco use type Cigarette 05/07/24 10:09 e-Cigarette/Vaping Use Never Used 05/07/24 10:09 Thrive Assessment: Date of Thrive Assessment Date Thrive assessed 05/07/24 05/07/24 10:09 Const Other: General: no acute distress and well developed Nutritional Appearance: well nourished Orientation/consciousness: patient oriented x3 HENMT Head: Yes normocephalic and Yes atraumatic Eyes General: appearance normal, both eyes and all related structures Pupils: Equal, round and reactive pupils present EOM: EOMs intact bilaterally Resp Effort & Inspection: normal respiratory effort Auscultation: clear to auscultation bilaterally Cardio Rate: regular rate Rhythm: regular rhythm Heart sounds: S1 normal heart sound present, S2 normal heart sound present, no gallops, + murmurs and no rubs GI Palpation (GI): No Abdominal aortic bruit present, Soft to palpation, nontender, No hepatosplenomegaly present and No Rebound tenderness present Auscultation: normal bowel sounds General: Yes no CVA tenderness Back/Spine/Pelvis Back: no CVA tenderness Cervical Spine: cervical ROM normal and No Cervical spine tenderness Thoracic/Lumbar Spine: thoraco-lumbar ROM normal, No pain with thoraco-lumbar ROM, No thoracic spinal tenderness and No lumbar spinal tenderness Extrem General: Yes normal to inspection, No edema and No calf tenderness Skin General: warm and dry. Normal skin color. Normal skin turgor Neuro General: patient oriented x3, gait normal and no focal neuro deficit Cranial nerves: Yes Equal, round and reactive pupils present Cognition (Neuro): normal cognition Gait exam (Neuro): Normal gait present Sensory Exam: No Sensory deficit (Neuro) Psych Appearance: grossly normal Affect: normal affect Attitude: cooperative Thought process: Normal thought process present Coding Level of Care Code Est Pt Level 4 (70963) Diagnoses Primary hypertension I10 Hypertension type: primary hypertension Iron deficiency anemia D50.9 Smoking 1/2 pack a day or less F17.210 Assessment & Plan Assessment & Plan (1) Hypertension: Code(s): I10 - Essential (primary) hypertension Category: Medical Qualifiers: Hypertension type: primary hypertension Qualified Code(s): I10 - Essential (primary) hypertension Plan: Resting blood pressure is 120/64, within goal of less than 130/80. Continue current treatment regimen. Low-sodium diet encouraged. Follow-up in three months or sooner with symptoms or concerns. Verbalized understanding and agreed with treatment plan. (2) Iron deficiency anemia: Code(s): D50.9 - Iron deficiency anemia, unspecified Category: Medical Plan: Continue current treatment regimen. She has an appointment to establish with [facility] [place]/14/[place]24; encouraged to follow-up as planned. Verbalized understanding and agreed with the treatment plan. (3) Smoking 1/2 pack a day or less: Code(s): F17.210 - Nicotine dependence, cigarettes, uncomplicated Category: Social Hx Plan: She started smoking again 2 weeks ago. She smokes 10-12 cigarettes daily. Declines medication treatment for smoking cessation at the time. Instructed on the health risks and complications of cigarette smoking. Smoking cessation encouraged. Follow-up as needed. Verbalized understanding and agreed with the plan.
[2024-05-07 10:06] VITALS: BP 181/73; PULSE 74; RESP 16; TEMP 36.6; O2SAT 100; BMI 20.8
[2024-05-07 10:21] VITALS: BP 120/64; PULSE 84
--- OUTSIDE RECORDS SUMMARY | 2024-05-07 10:32 | XMS_ITS | Continuity of Care Document ---
Author Organization [facility] [address] [place] [address] Phone [phone] Care Team Providers Care Business Transformation Analyst Name Role Phone Claudia York CNP Care Team Information Receive r [phone] Problems Active Problems Provider Date Osteoporosis Emanuel [...] Indications Ordering Provider Date Vitamin D (Ergocalciferol)1.25mg (77567 Ut) Capsules 1 tab by mouth every week 8caps Emanuel Cueva M.D. 06/20/2023 Lisinopril2.5mg Tablets Take 1 Tablet Orally Every Evening Unknown Clopidogrel Fyctjggyt46oc Tablets Take 1 Tablet By Mouth Every Day Des Sanchez MD Amlodipine [id number] Tablets Take 1 Tablet By Mouth Every Day Unknown Ksdjuagcmu978fl Tablets Take 1 Tablet By Mouth 2 Times A Day For 30 Days Claudia York CNP Ferrous Ijldgtc853(65Fe) mg Tablets Take 1 Tablet By Mouth 1 Time Each Day With Breakfast. Unknown Pramipexole Dihydrochloride0.125mg Tablets Take 2 By Mouth Daily Des Sanchez MD [id number] Capsules Take 1 Capsule By Mouth Three Times A Day Unknown Sertraline YVY537cs Tablets Take 1 Tablet By Mouth Twice A Day Des Sanchez MD Metformin TMH570wy Tablets Take 1 Tablet By Mouth Twice A Day Des Sanchez MD Atorvastatin Mboohpj36yn Tablets Take 1 Tablet By Mouth Every Day Des Sanchez MD Levothyroxine Egexav112eqy Tablets Take 1 Tablet By Mouth Every Day Des Sanchez MD Vital Signs Date Vital Result Comment 06/16/2023 9:37am BP Systolic 110 mmHg BP Diastolic 70 mmHg Heart Rate 72 /min Height 64 inches 5'4 Weight 128.12 lb BMI (Body Mass Index) 22.0 kg/m2 Results Test Acquired Date Facility Test Result H/L Range N ote Basic Metabolic Panel 06/16/2023 [facility] Glucose 102 mg/dL High (70-99) BUN 24 mg/dL High (8-23) Creatinine 1.3 mg/dL High (0.5-1.0) Sodium 140 mmol/L (133-145) Potassium 5.2 mmol/L (3.6-5.2) Chloride 105 mmol/L (98-107) Bicarbonate 20 mmol/L Low (22-29) Anion Gap 15 (4-17) Calcium 10.4 mg/dL (8.6-10.5 ) Estimated GFR Creatinine 41 ML/MIN/1.7 3M2 1 Laboratory test finding 06/16/2023 [facility] 25Oh Vitamin D 14.9 [...] E11.9 Type 2 diabetes mellitus* New Labs:* [id number], Ordered: 06/16/23 * Creat Clearance, Ordered: 06/16/23 * N-Telopeptide Cross Links, Urine, Ordered: 06/16/23 Functional Status Description No Information Available Mental Status Description No Information Available Referrals Description No Information Available
== END 2024-05-07 10:31 | disposition home or self-care (01) ==
PROVIDERS: PCP Nurse Practitioner Family; Visit Provider Nurse Practitioner Family
DX: I10 Essential (primary) hypertension (principal); D50.9 Iron deficiency anemia, unspecified; F17.210 Nicotine dependence, cigarettes, uncomplicated

== ENCOUNTER → 2024-05-07 09:43 | Outpatient (BNVA) | payer MEDICARE, SELFPAY | PROVIDERS: PCP Nurse Practitioner Family; Visit Provider Nurse Practitioner Family | DX: I10 Essential (primary) hypertension (principal); D50.9 Iron deficiency anemia, unspecified; F17.210 Nicotine dependence, cigarettes, uncomplicated | CPT/HCPCS: 99212 ==

== ENCOUNTER → 2024-05-12 23:59 | Outpatient (BNV) | payer MEDICARE, SELFPAY ==
--- NOTE | 2024-05-12 16:31 | MHC.OFFVIS ---
Intake Visit Reasons: Remote device check- Biotronik Allergies acetaminophen [From Percocet] Allergy (Intermediate, Verified 05/07/24 10:13) Itching oxycodone [From Percocet] Allergy (Intermediate, Verified 05/07/24 10:13) Itching Seasonal Allergies Allergy (Intermediate, Verified 05/07/24 10:13) Itchy Eyes ibuprofen [From Motrin] Allergy (Unknown, Verified 05/07/24 10:13) Swelling wheat Adverse Reaction (Unknown, Verified 05/07/24 10:13) Diarrhea lactose Adverse Reaction (Verified 05/07/24 10:13) Diarrhea [facility] Medical History (Updated 05/07/24 @ 10:31 by Jaylen Taylor CNP) Screening for lung cancer Colon cancer screening Normal physical examination, routine Viral upper respiratory illness Laboratory tests ordered as part of a complete physical exam (CPE) Cardiac pacemaker in situ Runny nose Smoking 1/2 pack a day or less SOB (shortness of breath) on exertion Smoking greater than 30 pack years Diarrhea Osteopenia Breast cancer screening Chronic diarrhea Skin tear of left upper arm without complication Aortic stenosis Restless leg syndrome No pertinent family history Hyperlipidemia Chronic back pain Osteoarthritis GERD (gastroesophageal reflux disease) Anxiety and depression Type 2 diabetes mellitus Hypertension CKD (chronic kidney disease) stage 3, GFR 30-59 ml/min Hypothyroidism Cataracts, bilateral COPD (chronic obstructive pulmonary disease) Deafness in right ear Stroke Surgical History History of esophagogastroduodenoscopy (EGD) H/O colonoscopy History of tonsillectomy History of appendectomy H/O: hysterectomy History of back surgery H/O thyroidectomy H/O endarterectomy S/P cardiac pacemaker procedure Family History Mother Bladder cancer Brother Bladder cancer Social History Household Members: Children Housing: House Do you presently have visiting nurse or other home services: No Patient Tobacco Use Status: Current everyday Tobacco user Tobacco use type: Cigarette Cigarette Packs Per Day: 0.5 Cigarettes Per Day: 12 Years Smoked: 70 e-Cigarette/Vaping Use: Never Used Substance Use Type: Marijuana service: No Current occupational status: retired Current occupational exposures/hazards: No Cognitive needs: No Hearing needs: No Vision needs: No Office Procedures Cardiac Device Check Cardiac Device Check Details: Remote pacemaker report generated 05/12/2024. Pacemaker function is adequate [id number] Cardiac Device Interrogation, pacemaker Procedure code (CPT) selection complete Assessment & Plan Assessment & Plan (1) Cardiac pacemaker in situ: Comment: Biotronik dual-chamber pacemaker in place, placed in 2016 Code(s): Z95.0 - Presence of cardiac pacemaker Category: Medical Plan: See above Coding Level of Care Code Procedure Only Diagnoses Cardiac pacemaker in situ Z95.0 CPT Codes Cardiac Device Check - Cardiac Device 12: [id number] Cardiac Device Interrogation, pacemaker ([id number])
== END ==
PROVIDERS: PCP Nurse Practitioner Family; Visit Provider Internal Medicine Cardiovascular Disease
DX: Z45.018 Encounter for adjustment and management of other part of cardiac pacemaker (principal)
CPT/HCPCS: 93294

== ENCOUNTER → 2024-05-14 10:00 | Outpatient (BNV) | payer MEDICARE, SELFPAY | PROVIDERS: PCP Nurse Practitioner Family; Referring Provider Nurse Practitioner Family; Visit Provider Internal Medicine Medical Oncology | DX: D64.9 Anemia, unspecified (principal) | CPT/HCPCS: 99204 ==

== ENCOUNTER 2024-06-02 09:42 | Outpatient (AMB) | payer MEDICARE, SELFPAY ==
[2024-06-02 09:47] VITALS: BP 130/68; PULSE 60; BMI 21.6
--- NOTE | 2024-06-02 09:47 | A.OFFVIS_ITS ---
Vital Signs 06/02/24 09:47 Height 5 ft 4 in Weight 125 lb 10.616 oz BMI 21.6 BP 130/68 Blood Pressure Location Lt brachial Position Sitting Pulse 60 Pulse Source Monitor Intake Visit Reasons: 6 mth w/ biotronic DC Allergies acetaminophen [From Percocet] Allergy (Intermediate, Verified 05/14/24 10:08) Itching oxycodone [From Percocet] Allergy (Intermediate, Verified 05/14/24 10:08) Itching Seasonal Allergies Allergy (Intermediate, Verified 05/14/24 10:08) Itchy Eyes ibuprofen [From Motrin] Allergy (Unknown, Verified 05/14/24 10:08) Swelling wheat Adverse Reaction (Unknown, Verified 05/14/24 10:08) Diarrhea lactose Adverse Reaction (Verified 05/14/24 10:08) Diarrhea Medication List - Last Reconciled 06/02/24 by Joseph Nicholas MD aspirin (Adult Low Dose Aspirin) 81 mg PO DAILY atorvastatin 80 mg PO BEDTIME 30 days bupropion HCl (smoking deter) 150 mg PO BID buspirone 7.5 mg PO BID cetirizine (Zyrtec) 10 mg PO DAILY 30 days clopidogrel 75 mg PO DAILY 30 days ezetimibe 10 mg PO DAILY famotidine 10 mg PO DAILY ferrous sulfate 325 mg PO BID 30 days folic acid 0.4 mg PO DAILY 30 days furosemide 20 mg PO DAILY gabapentin 600 mg PO BID 30 days levothyroxine 137 mcg PO DAILY mecobalamin (vitamin B12) 1,000 mcg PO DAILY metoprolol succinate ER 25 mg PO DAILY 30 days pantoprazole 40 mg PO BID pramipexole 0.25 mg (2 x 0.125 mg) PO BEDTIME 30 days psyllium husk (Metamucil) 1 tbsp PO DAILY sertraline 100 mg PO .QD 30 days spironolactone 25 mg PO DAILY HPI Comments Details: Pallavi comes for follow-up. She was admitted in March to [facility] with what appears to be decompensated congestive heart failure. Her LV ejection fraction at that time was preserved and with no change in her valvular condition. She was started on Entresto therapy although she is currently not on the same as well as dapagliflozin which she is not on. She was taking her diuretic regimen. She remains short of breath with minimal exertion. Unfortunately continues to smoke. Denies any prolonged palpitation irregular heartbeat. No lightheadedness, syncope. Denies any clear orthopnea, PND, leg edema. Blood pressure is generally well controlled. [facility] Medical History Screening for lung cancer Colon cancer screening Normal physical examination, routine Viral upper respiratory illness Laboratory tests ordered as part of a complete physical exam (CPE) Cardiac pacemaker in situ Runny nose Smoking 1/2 pack a day or less SOB (shortness of breath) on exertion Smoking greater than 30 pack years Diarrhea Osteopenia Breast cancer screening Chronic diarrhea Skin tear of left upper arm without complication Aortic stenosis Restless leg syndrome No pertinent family history Hyperlipidemia Chronic back pain Osteoarthritis GERD (gastroesophageal reflux disease) Anxiety and depression Type 2 diabetes mellitus Hypertension CKD (chronic kidney disease) stage 3, GFR 30-59 ml/min Hypothyroidism Cataracts, bilateral COPD (chronic obstructive pulmonary disease) Deafness in right ear Stroke Surgical History History of esophagogastroduodenoscopy (EGD) H/O colonoscopy History of tonsillectomy History of appendectomy H/O: hysterectomy History of back surgery H/O thyroidectomy H/O endarterectomy S/P cardiac pacemaker procedure Family History Mother Bladder cancer Brother Bladder cancer Social History Household Members: Children Housing: House Do you presently have visiting nurse or other home services: No Patient Tobacco Use Status: Current everyday Tobacco user Tobacco use type: Cigarette Cigarette Packs Per Day: 0.5 Years Smoked: 70 e-Cigarette/Vaping Use: Never Used Substance Use Type: Marijuana service: No Current occupational status: retired Current occupational exposures/hazards: No Cognitive needs: No Hearing needs: No Vision needs: No Review of Systems Const Denies weakness ENT Denies dizziness Card Denies chest pain, Denies chest pain with activity, Denies syncope, Denies rapid heart rate, Denies pedal edema, Denies edema, Denies leg edema, Denies lightheadedness, Denies palpitations, Denies dyspnea, Denies dyspnea on exertion and Denies orthopnea Resp Denies cough, Denies dyspnea and Denies dyspnea on exertion GI Denies hematochezia and Denies change in stool character Musc Denies abnormal gait, Denies muscle cramps, Denies muscle weakness, Denies numbness, Denies radiating pain into limb and Denies tingling Neuro Denies abnormal gait, Denies dizziness, Denies syncope, Denies numbness, Denies tingling and Denies weakness Endo Denies palpitations Physical Exam Vital Signs: Last Vital Signs Pulse 60 06/02/24 09:47 BP 130/68 06/02/24 09:47 BMI result Body Mass Index 21.6 Const General: cooperative, healthy appearing, comfortable and no acute distress Orientation/consciousness: patient oriented x3 Neck Neck: Yes normal visual inspection and Yes no JVD Resp Effort & Inspection: normal respiratory effort Auscultation: clear to auscultation bilaterally, no crackles, no rales, no rhonchi and no wheezes Cardio Jugular venous distension: no JVD Rate: regular rate Rhythm: regular rhythm Heart sounds: S1 normal heart sound present, S2 normal heart sound present, Murmur heart sound present systolic mid, decrescendo, crescendo, harsh, IV/ and at the left sternal border and no rubs Skin General skin exam: ecchymosis Neuro General: patient oriented x3 Extrem General: Yes no clubbing, cyanosis or edema Psych Appearance: grossly normal Mental Status: mental status grossly normal Speech and movement: Normal speech and movement present Office Procedures Cardiac Device Check Cardiac Device Check Details: Dual-chamber Biotronik pacemaker in place. Programmed in DDD-CLS mode. Atrial pacing 91% of time. No significant arrhythmias noted. Atrial ventricular sensing is adequate. Atrial ventricular pacing thresholds are excellent and reprogrammed to enhance battery life. Pacing lead impedance is stable. Battery life is at 40% [id number] Cardiac Device Check, pacemaker dual lead Procedure code (CPT) selection complete Assessment & Plan Assessment & Plan (1) Chronic heart failure with preserved ejection fraction (HFpEF): Code(s): I50.32 - Chronic diastolic (congestive) heart failure Category: Medical Plan: Heart failure preserved ejection fraction, clinically euvolemic and well compensated current low-dose diuretic therapy. She is also on currently spironolactone therapy. Continue the same. Quarterly renal function test should be pursued. Heart failure management discussed in discussed with her about daily weight monitoring avoidance salt loading. Also better management her underlying chronic lung disease will help prevent hospitalization related to the same and recurrent heart failure. This was discussed with her. Have taken the liberty to refer her to Pulmonary for the same. Avoidance of salt loading was discussed. She does not have significant valvular heart disease to require any further interventions along the same line. (2) Aortic stenosis: Code(s): I35.0 - Nonrheumatic aortic (valve) stenosis Category: Medical Plan: Aortic stenosis which appears to be moderate clinically. Recent echocardiogram shows [id number] aortic stenosis. Continue aspirin therapy. Continue aggressive risk factor modification. Aggressive management of of atherosclerotic vascular risk factors with diabetes goal hemoglobin A1c less than 7%. Goal LDL less than 55 mg/dL. Complete smoking cessation was advised. Continue monitor echocardiogram on annual basis. (3) Cardiac pacemaker in situ: Comment: Biotronik dual-chamber pacemaker in place, placed in 2015 Code(s): Z95.0 - Presence of cardiac pacemaker Category: Medical Plan: Cardiac pacemaker in-situ, working well. Reprogrammed for adequate function. Will follow remotely every 3 months. Follow up in the clinic in 6 months time. Follow up in the clinic in 6 months time, sooner p.r.n.. Thank you for allowing me to partake in his care Orders: Referrals Pulmonology Referral J44.9 - Chronic obstructive pulmonary disease, unspecified Coding Level of Care Code Est Pt Level 4 (14456) Complex EM visit Add On G2211 Diagnoses Chronic heart failure with preserved ejection fraction (HFpEF) I50.32 Aortic stenosis I35.0 Cardiac pacemaker in situ Z95.0 CPT Codes Cardiac Device Check - Cardiac Device 2: [id number] Cardiac Device Check, pacemaker dual lead ([id number])
--- OUTSIDE RECORDS SUMMARY | 2024-06-02 11:23 | XMS_ITS | Encounter Summary ---
Author Organization [facility] Address [address] [place] [address] Care Team Providers Care Verification Lead Name Role Phone Landy Sutherland MD Primary Care Provider [phone] Reason for Visit * Reason Onset Date Comments Medicare Annual Wellness Vis it Subsequent 04/05/2024 Has pt found a new provider since Dr. Molina left on 01/30/2024? Encounter Details Date Type Department Care Team (Late st Contact Info) Description 04/05/2024 Telephone Adult Medicine [facility] [address] [place] [id number] Kiki Benitez MA Medicare Annual Wellness Visit Subsequent (Has pt found a new provider since Dr. Molina left on 01/30/2024?) Social History Tobacco Use Types Packs/Day Years Used Date Smoking Tobacco: Former Cigarettes Q uit: 2022 Smokeless Tobacco: Never Alcohol Use Standard Drinks/Week Comments Yes 0 (1 standard drink = 0.6 oz pur e alcohol) Sex and Gender Information Value Date Recorded Sex Assigned at Not on file Gender Identity Not on file Sexual Orientation Not on file documented as of this encounter Progress Notes * Kiki Benitez MA - 04/05/2024 11:36 AM EST 2nd Outreach 1st attempt [phone] pts home/[place]# - VM not set up. 2nd attempt [phone] pts home/mobile# - busy signal. 3rd attempt Spoke with pts (son) Bonifacio Mukherjee. Told him I was trying to contact his mother (pt) to find out if she found a new provider since Dr. Molina left on 01/30/2024. Let him know that the two numbers I have for her in our chart are not working. Bonifacio confirmed that the [phone] is her number. Bonifacio stated that he will try to contact her and one of them will call me back. Patient is on the February report. documented in this encounter Plan of Treatment Not on file documented as of this encounter Visit Diagnoses Not on filedocumented in this encounter Care Teams Verification Lead Relationship Specialty Start Date End Date Landy Sutherland MD [address] [place] [id number] PCP - General 05/24/22 documented as of this encounter
--- OUTSIDE RECORDS SUMMARY | 2024-06-02 11:23 | XMS_ITS | Encounter Summary ---
Author Organization [facility] Address [address] [place] [address] Phone Care Team Providers Care Business Continuity Planner Name Role Phone Jaylen Taylor CNP Primary Care Provider [phone] Encounter Details Date Type Department Care Team (Late st Contact Info) Description 04/22/2022 Telephone [facility] [address] [facility] [address] [place] [address] Ilir Roca MD Social History Tobacco Use Types Packs/Day Years Used Date Smoking Tobacco: Never Smokeless Tobacco: Never Comments Unknown Sex and Gender Information Value Date Recorded Sex Assigned at Not on file Legal Sex Female 5:22 PM EST Gender Identity Not on file Sexual Orientation Not on file documented as of this encounter Miscellaneous Notes * Telephone Encounter - Lina Smith - 04/22/2022 4:13 PM EST Eloisa thank you, order was faxed over to [facility] * Telephone Encounter - Carmen Chamorro - 04/22/2022 3:12 PM EST [facility] called they cannot preform Renal Artery duplex scans at there facility. This order will need to be placed somewhere else. Thank you documented in this encounter Plan of Treatment Upcoming Encounters Date Type Department Care Team (Late st Contact Info) Description 06/04/2024 9:30 AM EST Office Visit [facility] [address] [facility] [address] [place] [phone] Elia Winters MD [address] [facility] [address] [place] [address] documented as of this encounter Visit Diagnoses Not on filedocumented in this encounter Care Teams Business Continuity Planner Relationship Specialty Start Date End Date Jaylen Taylor CNP [address] [place] [address] PCP - General 04/04/23 documented as of this encounter
--- OUTSIDE RECORDS SUMMARY | 2024-06-02 11:23 | XMS_ITS | Clinical Summary ---
Author Organization [facility] Address [address] [facility] [address] [place] [address] Phone Care Team Providers Care Marketing Executive Name Role Phone Jaylen Taylor CNP Primary Care Provider [phone] Allergies Active Allergy Reactions Criticality Noted Date Comments Fish Allergy GI intolerance 12/28/2021 Other reaction(s): gi upset Flurandrenolide 12/28/2021 Ibuprofen 11/22/2021 Oxycodone-Acetaminophen 11/22/2021 Shellfish Allergy 12/28/2021 Statins 12/28/2021 Medications cilostazol (PLETAL) 100 MG tablet Take 100 mg by mouth 2 Active atorvastatin (LIPITOR) 40 MG tablet Take 40 mg by mouth 1 (one) time each day 2 Active allopurinol (ZYLOPRIM) 100 MG tablet Take 100 mg by mouth 1 (one) time each day 2 Active gabapentin (NEURONTIN) 400 MG capsule Take 400 mg by mouth in the morning and 400 mg in the evening and 400 mg before bedtime. 2 Active glimepiride (AMARYL) 4 MG tablet Take 4 mg by mouth 1 (one) time each day 2 Active metFORMIN (GLUCOPHAGE) 500 MG tablet Take 500 mg by mouth in the morning and 500 mg in the evening. 2 Active omeprazole OTC (PriLOSEC OTC) 20 MG EC tablet Take 20 mg by mouth 1 (one) time each day 2 Active pramipexole (MIRAPEX) 0.125 MG tablet Take 0.125 mg by mouth 1 (one) time each day 2 Active sertraline (ZOLOFT) 100 MG tablet Take 100 mg by mouth in the morning and 100 mg in the evening. 2 Active levothyroxine sodium (TIROSINT) 137 MCG capsule Take 137 mcg by mouth 1 (one) time each day 2 Active aspirin (ST JUANIS) 81 MG EC tablet Take 81 mg by mouth 1 (one) time each day 2 Active budesonide-form oterol (SYMBICORT) 160-4.5 MCG/ACT inhaler Inhale 2 puffs 2 (two) times a day Rinse mouth with water after use to reduce aftertaste and incidence of candidiasis. Do not swallow. Active fluticasone (FLONASE) 50 MCG/ACT nasal spray Administer 1 spray into each nostril 1 (one) time each day Active clopidogrel (PLAVIX) 75 MG tablet Take 75 mg by mouth 1 (one) time each day Active amLODIPine (NORVASC) 10 MG tablet TAKE 1 TABLET BY MOUTH 1 TIME EACH DAY. 90 tablet 1 3 Active ferrous sulfate 325 (65 Fe) MG tablet TAKE 1 TABLET BY MOUTH 1 TIME EACH DAY WITH BREAKFAST. 90 tablet 1 3 Active Breztri Aerosphere 160-9-4.8 MCG/ACT aerosol INHALE 1 PUFF INTO THE LUNGS TWICE A DAY 3 Active levothyroxine (SYNTHROID, LEVOTHROID) 137 MCG tablet 3 Active lisinopril 10 MG tablet Take 1 tablet (10 mg total) by mouth 1 (one) time each day 90 tablet 3 3 Active Active Problems Problem Noted Date Diagnosed Date Bilateral stenosis of carotid arteries 3 04/04/2023 Overview (04/04/2023): Last Assessment & Plan: History of bilateral carotid stenosis status post stent. Significant risk factor due to her history of smoking. -Continue aspirin, Plavix, cilostazol and statin. Chronic back pain 04/04/2023 04/04/2023 Hyperlipidemia 04/04/2023 04/04/2023 Diabetes mellitus 04/04/2023 04/04/2023 Overview (04/04/2023): Last Assessment & Plan: . Stable overnight off of glucose drip. Glucoses have ranged from 132-224 Neuropathy 04/04/2023 04/04/2023 Overview (04/04/2023): Last Assessment & Plan: diabetic neuropathy contine gabapentin. Osteoarthritis 04/04/2023 04/04/2023 Restless leg syndrome 04/04/2023 04/04/2023 Overview (04/04/2023): Last Assessment & Plan: Continue pramipexole Tachycardia-bradycardia syndrome 04/04/2023 04/04/2023 Overview (04/04/2023): Last Assessment & Plan: A paced rhythm on EKG. Stable. Patient has a pacemaker and states need a new cardiology appointment for follow-up. She is due for battery change in [address] Henning inpt Urinary incontinence 04/04/2023 04/04/2023 Gastroesophageal reflux disease 04/04/2023 04/04/2023 Emphysema 06/27/2022 04/04/2023 Overview (04/04/2023): Last Assessment & Plan: Significant smoking history was COPD. Clinically stable only on albuterol as needed inhaler. No new concerns Smoking cessation encouraged and nicotine replacement prescribed Serum creatinine above reference range 2 Hypertensive disorder 12/21/2014 04/04/2023 Overview (04/04/2023): Last Assessment & Plan: Home regimen: amlodipine 5 mg daily along with hydralazine 25 mg 3 times daily. Hydralazine on hold due to low normal BPs, currently well controlled -- Continue amlodipine Chronic kidney disease stage 3 08/29/2014 1 06/05/2022 Body mass index 30+ - obesity 08/05/2012 Fatty liver 08/05/2012 04/04/2023 Vitamin D deficiency 05/19/2012 04/04/2023 Gout 02/04/2011 04/04/2023 Carotid artery stenosis 11/07/2010 04/04/20 23 Overview (04/04/2023): approx 50% left ICA 11/12 11/13 50-69% bilateral. Osteopenia 03/22/2010 04/04/2023 Overview (04/04/2023): 03/14--osteopenia back and hip (improved from previous) 11/14---osteopenia back and hip Peripheral vascular disease 02/25/200605/2022 Overview (04/04/2023): Right carotid enarterectomy 2000 Left bruit--50-70 % 02/07 (no change from 11/06) 09/11---less than 50% bilat Elevated level of transamina se and lactic acid dehydrogenase 09/12/2005 Overview (04/04/2023): 07/08--Improved off lipitor x 2 03/11--mod increase on lipitor and zetia 11/13 mild U/s 05/17 fatty liver. Acute, but ill-defined, cerebrovascular disease 08/17/2005 04/04/2023 Calculus of kidney 08/17/2005 04/04/2023 Overview (04/04/2023): 2000 Lumbago 08/17/2005 04/04/2023 Overview (04/04/2023): 2004---Lumbar disc surgery 11/06 Lung field abnormal 08/17/2005 04/04/2023 Overview (04/04/2023): Stable x 1996 IMO update Polyp of vocal cord or larynx 08/17/2005 Overview (04/04/2023): X 2 Syncope 08/17/2005 04/04/2023 Overview (04/04/2023): Secondary to Pauses caused by atenolol Hyperlipidemia 11/08/2004 04/04/2023 Overview (04/04/2023): elevated LFT on lipitor x 2, pravastatin, lovastatin Zetia--tolerated well System disorder of the nervous system 06/17/2002 04/04/2023 Overview (04/04/2023): Much improved off narcotics for back pain Resolved Problems Problem Noted Date Diagnosed Date Resolved Date Abscess 11/22/2021 12/28/2021 Immunizations Name Administration Dates Next Due H1N1 Inj Preservative Free 05/30/2009 Influenza, Unspecified 02/14/2022,2013,01/20/2013,01/16/2012,1007/2010,02/15/2010,02/23/2008,03/19/2007,02/26/20 06,03/01/2005 Pneumococcal Polysaccharide 09/04/2009, 3 Tdap 11/22/2021,09/21/2008 Zoster 04/06/2009 Social History Tobacco Use Types Packs/Day Years Used Date Smoking Tobacco: Every Day Cigarettes Passive Smoke Exposure: Never Smokeless Tobacco: Never Tobacco Cessation:Ready to Q uit: No; Counseling Given: No Alcohol Use Standard Drinks/Week Comments Never 0 (1 standard drink = 0.6 oz pur e alcohol) Comments Unknown Sex and Gender Information Value Date Recorded Sex Assigned at Not on file Legal Sex Female 5:22 PM EST Gender Identity Not on file Sexual Orientation Not on file Last Filed Vital Signs Vital Sign Reading Time Taken Comments Blood Pressure 130/62 11/21/2023 10:05 AM EDT Pulse 70 11/21/2023 10:05 AM EDT Temperature - - Respiratory Rate - - Oxygen Saturation 97% 04/04/2023 10:23 AM EST Inhaled Oxygen Concentration - - Weight 62.1 kg (137 lb) 11/21/2023 10:05 AM EDT Height - - Body Mass Index - - Plan of Treatment Upcoming Encounters Date Type Department Care Team (Late st Contact Info) Description 06/04/2024 9:30 AM EST Office Visit [facility] [address] [address] Elia Winters MD [address] [address] Health Maintenance Due Date Last Done Comments Pneumococcal Vaccine: 65+ Years (3 of 3 - PCV) 09/04/2010 09/04/2009, 06/04/2002 Diabetes: Ophthalmology Exam 01/01/2022 Diabetes: Pedal Pulse Checked 01/01/2022 Diabetes: Sensory Foot Exam 01/01/2022 Diabetes: Visual Foot Exam 01/01/2022 Diabetes: Hemoglobin A1C 2022 06/28/2022, 08/0 01/2022 Influenza Vaccine (#1) 2024 , 03/11/2014, 01/20/2013, Additional history exists Hepatitis B Vaccine Aged Out No longe r eligible based on patient's age to complete this topic Procedures Procedure Name Priority Date/Time Associated Diagnosis Comments EXT RESULT ENTRY Routine 12/11/2021 from Last 3 Months or Most Recently Relevant to Health Maintenance Results * (ABNORMAL) EXT RESULT ENTRY (12/11/2021) WBC 7.2 3.3 - 10.0 10*3/ML Red Blood Cell Count 3.26 Hemoglobin 10.3(A) 12.0 - 16.0 Hematocrit 30.5(A) 36.0 - 46.0 Platelets 216 150 - 399 10*3/UL MCV 93.6 82.0 - 108.0 Sodium 143 137 - 147 Potassium 4.2 3.4 - 5.5 Chloride 108.0 99.0 - 108.0 Carbon Dioxide 22 mmol/L Glucose 121 60 - 200 BUN 20 4 - 21 mg/dL Creatinine 1.59(A) 0.50 - 1.10 mg/dL Total Protein 6.6 6.4 - 8.2 G/DL BUN/Creatinine Ratio 13 Albumin 3.9 3.5 - 5.0 g/dL Calcium 10.1 8.7 - 10.7 mg/dL eGFR Non-Afr Malaysian 33 Total Bilirubin 0.3 MG/DL ALT (SGPT) 12 U/L AST (SGOT) 12 U/L Alkaline Phosphatase 80 U/L Hemoglobin A1C 6.0 4.0 - 6.0 12/11/2021 Historical Provider LAB BLOOD ORDERABLES Lianet l Result from Last 3 Months or Most Recently Relevant to Health Maintenance [place] [phone] Care Teams Marketing Executive Relationship Specialty Start Date End Date Jaylen Taylor CNP [address] [place] [address] PCP - General 04/04/23
--- OUTSIDE RECORDS SUMMARY | 2024-06-02 11:23 | XMS_ITS | Clinical Summary ---
Author Organization [facility] Address [address] [place] [address] Care Team Providers Care Paper Machine Supervisor Name Role Phone Landy Sutherland MD Primary Care Provider [phone] Encounters Date Type Department Care Team Description 04/05/2024 Telephone Adult [facility] [address] [place] [address] Kiki Benitez MA Medicare Annual Wellness Visit Subsequent (Has pt found a new provider since Dr. Molina left on 01/30/2024?) from Last 3 Months Surgical History Surgery Date Site/Laterality Comments OTHER SURGICAL HISTORY PROCEDURE: RI LAMNOTMY INCL W/DCMPRSN NRV ROOT 1 INTRSPC LUMBR; COMMENT: 3 back operations CAROTID ENDARTERECTOMY 2000 PROCEDURE: HISTORICAL CAROTID ENDART; COMMENT: right VAGINAL DELIVERY PROCEDURE: RI VAGINAL DELIVERY ONLY; COMMENT: x2 ABDOMINAL SURGERY age 22 PROCEDURE: RI UNLISTED PROCEDURE ABDOMEN PERITONEUM & OMENTUM; COMMENT: laparotomy with LSO for ruptured ectopic TONSILLECTOMY PROCEDURE: HISTORICAL TONSILLECTOMY Medical History Medical History Date Comments Esophageal reflux 03/01/2005 DX:Esophageal reflux Lumbago 03/01/2005 DX:Lumbago Thoracic aneurysm, ruptured (CMS/HCC) 11/12/2004 DX:Thoracic aneurysm, ruptured (HCC) Peripheral vascular disease, unspecified (CMS/HCC) 11/09/2004 DX:Peripheral vascular disea se, unspecified (HCC) Other dyspnea and respirator y abnormality 11/09/2004 DX:Other dyspnea and respira tory abnormality Sciatica 09/12/2004 DX:Sciatica Sinoatrial node dysfunction (CMS/HCC) 01/19/2004 DX:Sinoatrial node dysfunction (HCC) Cervicalgia 01/04/2004 DX:Cervicalgia Palpitations 01/04/2004 DX:Palpitations Syncope and collapse 12/08/2003 DX:Syncope and collapse Hematuria 10/24/2003 DX:Hematuria Disorder of bone and cartila ge, unspecified 07/27/2002 DX:Disorder of bone and cart ilage, unspecified Hemorrhage of rectum and anus 07/21/2002 DX :Hemorrhage of rectum and anus Diverticulosis of colon (wit hout mention of hemorrhage) 07/21/2002 DX:Diverticulosis of colon ( without mention of hemorrhage) Need for prophylactic vaccin ation against Streptococcus pneumoniae (pneumococcus) 06/04/2002 DX:Need for prophylactic vac cination against Streptococcus pneumoniae (pneumococcus) Generalized hyperhidrosis 10/23/2001 DX:Gen eralized hyperhidrosis Lumbosacral spondylosis with out myelopathy 06/26/2001 DX:Lumbosacral spondylosis w ithout myelopathy Hydronephrosis 06/19/2001 DX:Hydronephrosi s Occlusion and stenosis of ca rotid artery without mention of cerebral infarction 11/12/2004 DX:Occlusion and stenosis of carotid artery without mention of cerebral infarction Calculus of kidney 12/15/2000 DX:Calculus o f kidney Fatty liver disease, nonalcoholic 08/05/2012 DX:Fatty liver disease, nonalcoholic Osteopenia 03/22/2010 DX:Osteopenia; C OMMENT: 03/14--osteopenia back and hip (improved from previous) 11/14---osteopenia back and hip Hyperlipemia 11/08/2004 DX:Hyperlipemia; COMMENT: elevated LFT on lipitor x 2, pravastatin, lovastatin Zetia--tolerated well Hypertension 12/21/2014 DX:Hypertension 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 Right upper with atypical follicular cells. Thyroidectomy 05/17. 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 Type II or unspecified type diabetes mellitus with renal manifestations, not stated as uncontrolled(250.40) ([facility]) 08/07/2007 DX:Type II or unspecified ty pe diabetes mellitus with renal manifestations, not stated as uncontrolled(250.40) ([facility]); COMMENT: 07/10--Ogtt neg Intol Lisinopril CKD stage 3 Vitamin D deficiency 05/19/2012 DX:Vitamin D deficiency Polyp of vocal cord or larynx 08/17/2005 DX :Polyp of vocal cord or larynx; COMMENT: X 2 Hypothyroid 05/13/2013 DX:Hypothyroid Gout 02/04/2011 DX:Gout Type II or unspecified type diabetes mellitus with peripheral circulatory disorders, not stated as uncontrolled(250.70) 12/21/2014 DX:Type II or unspecified ty pe diabetes mellitus with peripheral circulatory disorders, not stated as uncontrolled(250.70); COMMENT: PVD Carotid Stenosis Lung nodule DX:Lung nodule; COMMENT: last CT chest on 09/02/2022- to repeat in 1 year Weight loss DX:Weight loss Pacemaker DX:Pacemaker Peripheral vascular disease ([facility]) DX:Peripheral vascular disease ([facility]) Family History Medical History Relation Name Comments Other cancer Brother 1 bladder Diabetes Father Heart failure Father Other: Parkinson's Disease Maternal Grandmother Arthritis Mother hip fracture Other cancer Mother bladder Relation Name Status Comments Brother 1 Brother 2 Alive Brother 3 (Age 59) Father Maternal Grandfather Maternal Grandmother Mother Paternal Grandfather Paternal Grandmother Son 1 Alive Son 2 (Age 19) Social History Tobacco Use Types Packs/Day Years Used Date Smoking Tobacco: Former Cigarettes Q uit: 2022 Smokeless Tobacco: Never Alcohol Use Standard Drinks/Week Comments Yes 0 (1 standard drink = 0.6 oz pur e alcohol) Sex and Gender Information Value Date Recorded Sex Assigned at Not on file Gender Identity Not on file Sexual Orientation Not on file Obstetrics History Last Filed Vital Signs Vital Sign Reading Time Taken Comments Blood Pressure 134/78 11/29/2022 8:29 AM EDT Pulse 71 11/27/2022 8:59 AM EDT Temperature - - Respiratory Rate - - Oxygen Saturation - - Inhaled Oxygen Concentration - - Weight 61.2 kg (135 lb) 11/29/2022 8:29 AM EDT Height 162.6 cm (5' 4 ) 11/29/2022 8:29 AM EDT Body Mass Index 23.17 11/29/2022 8:29 AM EDT Plan of Treatment Health Maintenance Due Date Last Done Comments Diabetes: Annual GFR (Glomerular Filtration Rate) 1944 Diabetes: Annual Foot Exam 1954 Diabetes: Annual Retina Eye Exam 1954 Hepatitis A Vaccines (1 of 2 - Risk 2-dose series) 09/26/1963 Hepatitis B Vaccines (1 of 3 - Risk 3-dose series) 2004 Zoster Vaccines (2 of 3) 06/01/2009 04/06/2009 Pneumococcal Vaccine: 65+ Years (2 of 2 - PCV) 09/04/2010 09/04/2009, 06/04/2002 DTaP,Tdap,and Td Vaccines (2 - Td or Tdap) 09/21/2018 09/21/2008 RSV Immunization Patients 60+ Years Old (1 - 1-dose 75+ series) 09/26/2019 Cholesterol Screening (Lipid Panel) 04/07/2022 Colorectal Cancer Screening: Stool Based Tests (FOBT/FIT) 04/07/2022 Depression Screening 04/07/2022 Falls Risk Assessment 04/07/2022 Hepatitis C Screening 04/07/2022 Medicare Annual Wellness Visit 04/07/2022 Osteoporosis Screening (Bone Density Screening) 04/07/2022 Social Influencers of Health Screening 04/07/2022 Hypertension/CHF/CAD Annual BMP Blood Test 04/14/2022 Diabetes: Annual Urine Albumin-Creatinine Ratio (uACR) 04/18/2022 Diabetes: Blood Sugar Control Test (HGBA1C) 04/18/2022 COVID-19 Vaccine ( season) 2024 Influenza Vaccine (#1) 2024 4, 01/20/2013, 01/16/2012, Additional history exists HIB Vaccines Aged Out No longer eligi ble based on patient's age to complete this topic HPV Vaccines Aged Out No longer eligi ble based on patient's age to complete this topic IPV Vaccines Aged Out No longer eligi ble based on patient's age to complete this topic MMR Vaccines Aged Out No longer eligi ble based on patient's age to complete this topic Meningococcal ACWY Vaccine Aged Out N o longer eligible based on patient's age to complete this topic RSV Immunization Patients Under 20 months Aged Out No longer eligible based on patient's age to complete this topic Varicella Vaccines Aged Out No longer eligible based on patient's age to complete this topic Care Teams Paper Machine Supervisor Relationship Specialty Start Date End Date Landy Sutherland MD [address] [place] [id number] PCP - General 05/24/22
--- OUTSIDE RECORDS SUMMARY | 2024-06-02 11:23 | XMS_ITS | Patient Health Record ---
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 Name Role Phone Oscar Alicia MD Primary Care Provider Prashant Sibley Unavailable [phone] Allergies Allergen (clinical drug ingredient) Drug/Non Drug Allergy documented on EMR Reaction Allergy Type Onset Date Status acetaminophen / oxycodone Percocet Unknown Drug Allergy Active banana allergenic extract Banana (Diagnostic) Unknown Drug Allergy Active ibuprofen Ibuprofen Unknown Drug Allergy Active Reason For Referral No Information Medications Medication SIG (Take, Route, Frequency, Duration) Notes Start Date End Date Status Levothyroxine Sodium 137 MCG 1 tablet in the morning on an empty stomach Orally Once a day for 30 day(s) Active glipiZIDE ER 10 MG 1 tablet with breakf ast Orally Once a day for 30 day(s) Active Gabapentin 300 MG 1 capsule Orally Onc e a day for 30 day(s) Active Allopurinol 300 MG 1 tablet Orally Once a day for 30 day(s) Active Pramipexole Dihydrochloride 0.125 MG 1 tablet Orally Once a day for 30 day(s) Active Omeprazole 20 MG 1 capsule 30 minutes before morning meal Orally Once a day for 30 day(s) Active Cilostazol 100 MG 1 tablet 30 minutes before or 2 hours after breakfast and dinner Orally Twice a day for 90 days Active metFORMIN HCl 500 MG 1 tablet with a haris l Orally Once a day for 30 day(s) Active Meloxicam 15 MG 1 tablet Orally Once a day for 30 day(s) Active Sertraline HCl 100 MG 1/2 tablet Orally Once a day Active Aspirin Adult Low Dose 81 MG 1 tablet Or ally Once a day for 30 day(s) Active Atorvastatin Calcium 40 MG 1 tablet Oral ly Once a day at bedtime for 90 days Active amLODIPine Besylate 5 MG 1 tablet Orally Once a day for 30 day(s) Active Social History Tobacco Use: Social History Observation Description Date Details (start date - stop date) Current Smoker NA - NA Tobacco Use/Smoking Question Answer Notes Are you a current smoker How often do you smoke cigarettes? every day How soon after you wake up do you smoke your fir st cigarette? within 5 minutes How many cigarettes a day do you smoke? 11-20 Are you interested in quitting? Ready to quit Problems Problem Type SNOMED Code ICD Code Onset Dates Problem Status W/U Status Risk Notes Problem Essential hypertension (59562783) Essential (primary) hypertension (I10) Active confirmed Problem Aortic valve disorder (2984633) Nonrheumatic aortic (valve) stenosis (I35.0) Active confirmed Problem Cerebrovascular disease (11029014) Cerebrovascular disease, unspecified (I67.9) Active confirmed Problem Obesity due to excess calories (343557679) Other obesity due to excess calories (E66.09) Active confirmed Problem Sick sinus syndrome (78773528) Sick sinus syndrome (I49.5) Active confirmed Problem Occlusion and stenosis of multiple and bilateral cerebral arteries (354478723) Occlusion and stenosis of bilateral carotid arteries (I65.23) Active confirmed Problem Carotid artery occlusion (352042670) Occlusion and stenosis of unspecified carotid artery (I65.29) Active confirmed Problem Cardiac pacemaker in situ (800073225) Presence of cardiac pacemaker (Z95.0) Active confirmed Problem Aortic valve disorder (8294570) Nonrheumatic aortic (valve) stenosis (I35.0) Active confirmed Problem Mixed hyperlipidemia (260841508) Mixed hyperlipidemia (E78.2) Active confirmed Problem Intermittent claudication of bilateral lower limbs co-occurrent and due to atherosclerosis (52707383897869455 ) Atherosclerosis of [place] arteries of extremities with intermittent claudication, bilateral legs (I70.213) Active confirmed Problem Shortness of breath (731916759) Shortness of breath (R06.02) Active confirmed Problem Peripheral circulatory disorder associated with diabetes mellitus (426201439) 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) Active confirmed Problem Peripheral vascular disease (311651028) Other specified peripheral vascular diseases (I73.89) Active confirmed Problem Right carotid artery stenosis (740891609286738) Occlusion and stenosis of right carotid artery (I65.21) Active confirmed Problem Left carotid artery occlusion (161957174425278) Occlusion and stenosis of left carotid artery (I65.22) Active confirmed Problem Low back pain (197419463) Low back pain (M54.5) Active confirmed Problem Dizziness and giddiness (142500426) Dizziness and giddiness (R42) Active confirmed Problem Counseling about tobacco use (011970082) Tobacco abuse counseling (Z71.6) Active confirmed Problem Tobacco use (663767618) Tobacco use (Z72.0) Active confirmed Problem Counseling about tobacco use (149263476) Tobacco abuse counseling (Z71.6) Active confirmed Plan Of Treatment Pending Test Test Name Order Date CBC WITH DIFFERENTIAL 01/18/2021 COMPREHENSIVE METABOLIC PANEL 01/18/2021 PROTHROMBIN TIME PROFILE 01/18/2021 LIPID PANEL@@ 01/18/2021 CHEST PA & LATERAL 03/02/2021 GLUCOSE POINT OF CARE 03/02/2021 Insurance Providers Payer Name Payer Address Payer Phone Subscriber Number Group Number Insured Name Patient Relationship to Insured Coverage Start Date Coverage End Date [facility] [id number] [place] [address] [id number] Pallavi Mukherjee Self - patient is the insured Medical (General) History Medical History History ICD Code Hypertension Hyperlipidemia Diabetes Aortic stenosis Sick sinus syndrome status post permanen t pacemaker Arthritis COPD Carotid stenosis CVA Peripheral arterial disease Surgical History Surgery Date(Month/Year) Tonsillectomy 1951 Appendectomy 1953 Hysterectomy 1974 Polyps of the vocal cords 1979 CVA 1984 Back surgery L4 and L5 1992 Back surgery 1994 Right carotid endarterectomy 2000 Back surgery 2005 Thyroidectomy 2010 Permanent pacemaker 2015 Right internal carotid artery stent 01/18 Left internal carotid artery stent 03/02
== END 2024-06-02 09:54 | disposition home or self-care (01) ==
PROVIDERS: PCP Nurse Practitioner Family; Visit Provider Internal Medicine Cardiovascular Disease
DX: I50.32 Chronic diastolic (congestive) heart failure (principal); I35.0 Nonrheumatic aortic (valve) stenosis; Z95.0 Presence of cardiac pacemaker
CPT/HCPCS: 93280; 99214; G2211

== ENCOUNTER → 2024-06-02 09:42 | Outpatient (BNVA) | payer MEDICARE, SELFPAY | PROVIDERS: PCP Nurse Practitioner Family; Visit Provider Internal Medicine Cardiovascular Disease | DX: I50.32 Chronic diastolic (congestive) heart failure (principal); I35.0 Nonrheumatic aortic (valve) stenosis; J44.9 Chronic obstructive pulmonary disease, unspecified; Z95.0 Presence of cardiac pacemaker | CPT/HCPCS: 93280; 99212 ==

== ENCOUNTER → 2024-06-08 23:59 | Outpatient (BNV) | payer MEDICARE, SELFPAY ==
--- NOTE | 2024-06-09 11:44 | MHC.OFFVIS ---
Intake Visit Reasons: Remote device check- Biotronik Allergies acetaminophen [From Percocet] Allergy (Intermediate, Verified 05/14/24 10:08) Itching oxycodone [From Percocet] Allergy (Intermediate, Verified 05/14/24 10:08) Itching Seasonal Allergies Allergy (Intermediate, Verified 05/14/24 10:08) Itchy Eyes ibuprofen [From Motrin] Allergy (Unknown, Verified 05/14/24 10:08) Swelling wheat Adverse Reaction (Unknown, Verified 05/14/24 10:08) Diarrhea lactose Adverse Reaction (Verified 05/14/24 10:08) Diarrhea [facility] Medical History Screening for lung cancer Colon cancer screening Normal physical examination, routine Viral upper respiratory illness Laboratory tests ordered as part of a complete physical exam (CPE) Cardiac pacemaker in situ Runny nose Smoking 1/2 pack a day or less SOB (shortness of breath) on exertion Smoking greater than 30 pack years Diarrhea Osteopenia Breast cancer screening Chronic diarrhea Skin tear of left upper arm without complication Aortic stenosis Restless leg syndrome No pertinent family history Hyperlipidemia Chronic back pain Osteoarthritis GERD (gastroesophageal reflux disease) Anxiety and depression Type 2 diabetes mellitus Hypertension CKD (chronic kidney disease) stage 3, GFR 30-59 ml/min Hypothyroidism Cataracts, bilateral COPD (chronic obstructive pulmonary disease) Deafness in right ear Stroke Surgical History History of esophagogastroduodenoscopy (EGD) H/O colonoscopy History of tonsillectomy History of appendectomy H/O: hysterectomy History of back surgery H/O thyroidectomy H/O endarterectomy S/P cardiac pacemaker procedure Family History Mother Bladder cancer Brother Bladder cancer Social History Household Members: Children Housing: House Do you presently have visiting nurse or other home services: No Patient Tobacco Use Status: Current everyday Tobacco user Tobacco use type: Cigarette Cigarette Packs Per Day: 0.5 Years Smoked: 70 e-Cigarette/Vaping Use: Never Used Substance Use Type: Marijuana Patient : No service: No Current occupational status: retired Current occupational exposures/hazards: No Cognitive needs: No Hearing needs: No Vision needs: No Office Procedures Cardiac Device Check Cardiac Device Check Details: Remote pacemaker report generated 06/02/2024. Pacemaker function is adequate [id number] Cardiac Device Interrogation, pacemaker Procedure code (CPT) selection complete Assessment & Plan Assessment & Plan (1) Cardiac pacemaker in situ: Comment: Biotronik dual-chamber pacemaker in place, placed in 2016 Code(s): Z95.0 - Presence of cardiac pacemaker Category: Medical Plan: See above Coding Level of Care Code Procedure Only Diagnoses Cardiac pacemaker in situ Z95.0 CPT Codes Cardiac Device Check - Cardiac Device 12: [id number] Cardiac Device Interrogation, pacemaker ([id number])
== END ==
PROVIDERS: PCP Nurse Practitioner Family; Visit Provider Internal Medicine Cardiovascular Disease
DX: Z45.018 Encounter for adjustment and management of other part of cardiac pacemaker (principal)
CPT/HCPCS: 93294

== ENCOUNTER → 2024-06-24 23:59 | Outpatient (BNV) | payer MEDICARE, SELFPAY ==
--- NOTE | 2024-06-24 12:58 | MHC.OFFVIS ---
Intake Visit Reasons: Remote device check- Biotronik Allergies acetaminophen [From Percocet] Allergy (Intermediate, Verified 06/24/24 11:43) Itching oxycodone [From Percocet] Allergy (Intermediate, Verified 06/24/24 11:43) Itching Seasonal Allergies Allergy (Intermediate, Verified 06/24/24 11:43) Itchy Eyes ibuprofen [From Motrin] Allergy (Unknown, Verified 06/24/24 11:43) Swelling wheat Adverse Reaction (Unknown, Verified 06/24/24 11:43) Diarrhea lactose Adverse Reaction (Verified 06/24/24 11:43) Diarrhea [facility] Medical History Screening for lung cancer Colon cancer screening Normal physical examination, routine Viral upper respiratory illness Laboratory tests ordered as part of a complete physical exam (CPE) Cardiac pacemaker in situ Runny nose Smoking 1/2 pack a day or less SOB (shortness of breath) on exertion Smoking greater than 30 pack years Diarrhea Osteopenia Breast cancer screening Chronic diarrhea Skin tear of left upper arm without complication Aortic stenosis Restless leg syndrome No pertinent family history Hyperlipidemia Chronic back pain Osteoarthritis GERD (gastroesophageal reflux disease) Anxiety and depression Type 2 diabetes mellitus Hypertension CKD (chronic kidney disease) stage 3, GFR 30-59 ml/min Hypothyroidism Cataracts, bilateral COPD (chronic obstructive pulmonary disease) Deafness in right ear Stroke Surgical History History of esophagogastroduodenoscopy (EGD) H/O colonoscopy History of tonsillectomy History of appendectomy H/O: hysterectomy History of back surgery H/O thyroidectomy H/O endarterectomy S/P cardiac pacemaker procedure Family History Mother Bladder cancer Brother Bladder cancer Social History Household Members: Children Housing: House Do you presently have visiting nurse or other home services: No Patient Tobacco Use Status: Current everyday Tobacco user Tobacco use type: Cigarette Cigarette Packs Per Day: 0.5 Years Smoked: 70 e-Cigarette/Vaping Use: Never Used Substance Use Type: Marijuana Patient : No service: No Current occupational status: retired Current occupational exposures/hazards: No Cognitive needs: No Hearing needs: No Vision needs: No Office Procedures Cardiac Device Check Cardiac Device Check Details: Remote pacemaker report generated 06/24/2024. Pacemaker function is adequate. [id number] Cardiac Device Interrogation, pacemaker Procedure code (CPT) selection complete Assessment & Plan Assessment & Plan (1) Cardiac pacemaker in situ: Comment: Biotronik dual-chamber pacemaker in place, placed in 2016 Code(s): Z95.0 - Presence of cardiac pacemaker Category: Medical Plan: See above Coding Level of Care Code Procedure Only Diagnoses Cardiac pacemaker in situ Z95.0 CPT Codes Cardiac Device Check - Cardiac Device 12: [id number] Cardiac Device Interrogation, pacemaker ([id number])
== END ==
PROVIDERS: PCP Nurse Practitioner Family; Visit Provider Internal Medicine Cardiovascular Disease
DX: Z45.018 Encounter for adjustment and management of other part of cardiac pacemaker (principal)
CPT/HCPCS: 93294

== ENCOUNTER 2024-06-29 13:24 | Outpatient (AMB) | payer MEDICARE, SELFPAY ==
[2024-06-29 13:26] VITALS: BP 130/72; PULSE 114; O2SAT 96; BMI 21.6
--- NOTE | 2024-06-29 13:26 | MHC.OFFVIS ---
Vital Signs 06/29/24 13:26 Height 5 ft 4 in Weight 126 lb BMI 21.6 BP 130/72 Blood Pressure Location Rt brachial Position Sitting Pulse 114 H Pulse Source Pulse Oximeter Pulse Oximetry (%) 96 Oxygen Delivery Method Room Air Intake Visit Reasons: COPD [employer] Workers Supervisor Required: No Vault Mechanic: Vault Mechanic offered & declined Accompanied by: Self / Same As Patient Allergies acetaminophen [From Percocet] Allergy (Intermediate, Verified 06/29/24 13:32) Itching oxycodone [From Percocet] Allergy (Intermediate, Verified 06/29/24 13:32) Itching Seasonal Allergies Allergy (Intermediate, Verified 06/29/24 13:32) Itchy Eyes ibuprofen [From Motrin] Allergy (Unknown, Verified 06/29/24 13:32) Swelling wheat Adverse Reaction (Unknown, Verified 06/29/24 13:32) Diarrhea lactose Adverse Reaction (Verified 06/29/24 13:32) Diarrhea Medication List - Last Reconciled 06/29/24 by Alondra Arevalo LPN aspirin (Adult Low Dose Aspirin) 81 mg PO DAILY atorvastatin 80 mg PO BEDTIME 30 days koazknwgxi-kzecfeis-zypaxxlvak 160-9-4.8 mcg/actuation (Breztri Aerosphere) 2 inhalations inhalation BID bupropion HCl (smoking deter) 150 mg PO BID buspirone 7.5 mg PO BID cetirizine (Zyrtec) 10 mg PO DAILY 30 days clopidogrel 75 mg PO DAILY 30 days ezetimibe 10 mg PO DAILY famotidine 10 mg PO DAILY ferrous sulfate 325 mg PO BID 30 days folic acid 0.4 mg PO DAILY 30 days furosemide 20 mg PO DAILY gabapentin 600 mg PO BID 30 days levothyroxine 137 mcg PO DAILY mecobalamin (vitamin B12) 1,000 mcg PO DAILY metoprolol succinate ER 25 mg PO DAILY 30 days pantoprazole 40 mg PO BID pramipexole 0.25 mg (2 x 0.125 mg) PO BEDTIME 30 days psyllium husk (Metamucil) 1 tbsp PO DAILY sertraline 100 mg PO .QD 30 days spironolactone 25 mg PO DAILY HPI HPI COPD: Details: Pallavi is a pleasant 78-year-old female, current smoker, with 70pyh with underlying COPD, hypertension, aortic stenosis, diastolic dysfunction on lasix 20mg, hyperlipidemia, diabetes mellitus, chronic kidney disease stage 3, peripheral vascular disease, and tachybradycardia status post pacemaker placement She was referred for pulmonary evaluation by PCP and cardiology for ongoing dyspnea. She reports moderate control with Breztri however continues with dyspnea with exertion that has progressively worsened over time. Previously she used nebulized therapy with good effect however no longer has available. The patient also presents with morning productive cough, with yellow sputum, with no recent use of antibiotics for respiratory symptoms. She denies prior h/o asthma. She denies any occupational exposures. She denies any pertinent family history. 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 During this time she did require BiPAP and reports symptoms suggestive of SHRAVAN however never had sleep study performed. She continues to report significant daytime fatigue and loud snoring. [facility] Medical History (Updated 06/29/24 @ 14:15 by Alice Haley NP) Screening for lung cancer Colon cancer screening Normal physical examination, routine Viral upper respiratory illness Laboratory tests ordered as part of a complete physical exam (CPE) Cardiac pacemaker in situ Runny nose Smoking 1/2 pack a day or less SOB (shortness of breath) on exertion Smoking greater than 30 pack years Diarrhea Osteopenia Breast cancer screening Chronic diarrhea Skin tear of left upper arm without complication Aortic stenosis Restless leg syndrome No pertinent family history Hyperlipidemia Chronic back pain Osteoarthritis GERD (gastroesophageal reflux disease) Anxiety and depression Type 2 diabetes mellitus Hypertension CKD (chronic kidney disease) stage 3, GFR 30-59 ml/min Hypothyroidism Cataracts, bilateral COPD (chronic obstructive pulmonary disease) Deafness in right ear Stroke Surgical History History of esophagogastroduodenoscopy (EGD) H/O colonoscopy History of tonsillectomy History of appendectomy H/O: hysterectomy History of back surgery H/O thyroidectomy H/O endarterectomy S/P cardiac pacemaker procedure Family History Mother Bladder cancer Brother Bladder cancer Social History (Updated 06/29/24 @ 13:35 by Alondra Arevalo LPN) Household Members: Children Housing: House Do you presently have visiting nurse or other home services: No Patient Tobacco Use Status: Current everyday Tobacco user Tobacco use type: Cigarette Cigarette Packs Per Day: 0.5 Cigarettes Per Day: 8 Years Smoked: 70 e-Cigarette/Vaping Use: Never Used Substance Use Type: Marijuana service: No Current occupational status: retired Current occupational exposures/hazards: No Cognitive needs: No Hearing needs: No Vision needs: No Review of Systems Const Denies chills, Denies excessive sweating, Denies fever(s), Denies headache(s) and Denies night sweats Eyes Denies dry eyes, Denies irritation and Denies itchy eyes ENT Reports Normal hearing present, Denies headache(s), Denies nasal congestion, Denies nasal discharge, Denies post nasal drip and Denies sore throat Card Denies chest pain, Denies chest pain at rest, Denies chest pain with activity, Denies claudication, Denies leg edema and Denies paroxysmal nocturnal dyspnea Resp Denies excessive phlegm production, Denies pain on inspiration, Denies pain with cough, Denies stridor and Denies wheezing Musc Denies myalgias Neuro Reports Normal hearing present and Denies headache(s) Endo Denies excessive sweating Arnold/Lymph Denies lymphadenopathy Aller/Immun Denies itchy eyes, Denies seasonal rhinorrhea and Denies wheezing Physical Exam Vital Signs: Last Vital Signs Pulse 114 H 06/29/24 13:26 BP 130/72 06/29/24 13:26 Pulse Ox 96 06/29/24 13:26 Oxygen Delivery Method Room Air 06/29/24 13:26 BMI result Body Mass Index 21.6 Const General: cooperative, healthy appearing, comfortable, no acute distress, well developed and alert Orientation/consciousness: patient oriented x3 Limitations: no limitations HEENT Head: Yes normal to inspection, Yes normocephalic and Yes atraumatic Ears: hearing grossly normal bilaterally and external ears normal Eyes General: appearance normal, both eyes and all related structures Eyelids: Yes eyelids normal Sclerae: sclerae normal EOM: EOMs intact bilaterally Neck Neck: Yes normal visual inspection and Yes no lymphadenopathy Lymphatic: no lymphadenopathy noted Chest Chest palpation & inspection: normal inspection of the chest Resp Other: diminished aeration RLL compared to LLL, otherwise clear Effort & Inspection: normal respiratory effort, able to speak in complete sentences, no audible wheezes, no cough, no stridor, not tachypneic, no tripod positioning and no use of accessory muscles Cardio Jugular venous distension: no JVD Rate: regular rate Rhythm: regular rhythm Skin Other: warm, dry General skin exam: no rashes or lesions noted Neuro General: patient oriented x3 Cranial nerves: Yes Normal hearing present Cognition (Neuro): normal cognition Gait exam (Neuro): Normal gait present Extrem General: Yes normal to inspection, Yes capillary refill normal, Yes no clubbing, cyanosis or edema and Yes no pedal edema Psych Appearance: grossly normal and well kempt Speech and movement: Normal speech and movement present and Clear speech present Affect: normal affect Attitude: cooperative Thought process: Normal thought process present Thought content: Normal thought content present Insight: Good insight present (Psych) Judgement: Good judgement present (Psych) Office Procedures 6 Minute Walk Time:: 13:50 SPO2 % at rest: 98 Pulse at rest: 65 SPO2 % during excercise: 95 Pulse during excercise: 80 SPO2 % after excercise: 95 Pulse after excercise: 79 Distance in yards walked: 125 Duarte Score: 5 Performance Observations:: Patient walked unassisted on level ground. Patient was able to maintain O2 saturation of 95% or greater and pulse of 80 or less for the entirety of the walk. Patient did complain of dizziness in the middle of the walk and we stopped for approx 30 seconds and continued on. No supplemental oxygen was needed. [address]377 - 6 Minute Walk Assessment & Plan Assessment & Plan (1) COPD (chronic obstructive pulmonary disease): Code(s): J44.9 - Chronic obstructive pulmonary disease, unspecified Category: Medical (2) Cough: Code(s): R05.9 - Cough, unspecified Category: Medical (3) Nicotine dependence, cigarettes, uncomplicated: Code(s): F17.210 - Nicotine dependence, cigarettes, uncomplicated Category: Medical (4) Daytime somnolence: Code(s): R40.0 - Somnolence Category: Medical (5) Loud snoring: Code(s): R06.83 - Snoring Category: Medical (6) Pulmonary nodule 1 cm or greater in diameter: Code(s): R91.1 - Solitary pulmonary nodule Category: Medical Plan Pallavi's symptoms are likely multifactorial with pulmonary and cardiac contribution. Discussed the patient's COPD and ongoing dyspnea management, emphasizing the importance of a pulmonary function test to assess severity. We agreed upon continuing Breztri inhaler regimen and will be arranging for a new nebulizer. Advised scheduling a sleep apnea study to explore symptoms related to fatigue. Will treat bronchitic symptoms with doxycycline and send for CXR today for decreased aeration within RLL. The potential requirement for smoking cessation was addressed critically to improve her pulmonary condition and general health outlook. The plan for regular CT imaging due to smoking history was confirmed for surveillance purposes. Prior chest CT 03/28 revealed 1.5 mm subpleural nodule, will repeat in 6 months to assess stability. All questions were answered and patient is in agreement of plan. Will follow up in 8-10 weeks or sooner if needed. Orders: Orders PFT pulmonary function test Today J44.9 - Chronic obstructive pulmonary disease, unspecified XR chest 2V Today R05.9 - Cough, unspecified AMB 6 minute walk Today R06.09 - Other forms of dyspnea CT chest wo IV con 2 Months R91.1 - Solitary pulmonary nodule RT home sleep study Today R06.83 - Snoring, R40.0 - Somnolence Medications: New albuterol sulfate 2.5 mg (3 mL) inhalation Q4-6H PRN 180 mL 2RF shortness of breath or wheezing doxycycline hyclate 100 mg PO BID 14 caps 0RF Coding Level of Care Code New Pt Level 4 (75993) Diagnoses COPD (chronic obstructive pulmonary disease) J44.9 Cough R05.9 Nicotine dependence, cigarettes, uncomplicated F17.210 Daytime somnolence R40.0 Loud snoring R06.83 Pulmonary nodule 1 cm or greater in diameter R91.1 CPT Codes Coding ([id number])
[2024-06-29 14:09] VITALS: PULSE 65; O2SAT 98
--- OUTSIDE RECORDS SUMMARY | 2024-06-29 16:30 | XMS_ITS | Clinical Summary ---
Author Organization [facility] Address [address] [facility] [address] [place] [address] Phone Care Team Providers Care Ladle Watcher Name Role Phone Jaylen Taylor CNP Primary Care Provider [phone] Allergies Active Allergy Reactions Criticality Noted Date Comments Fish Allergy GI intolerance 12/28/2021 Other reaction(s): gi upset Flurandrenolide 12/28/2021 Ibuprofen 11/22/2021 Oxycodone-Acetaminophen 11/22/2021 Shellfish Allergy 12/28/2021 Statins 12/28/2021 Medications cilostazol (PLETAL) 100 MG tablet Take 100 mg by mouth 2 Active atorvastatin (LIPITOR) 80 MG tablet Take 80 mg by mouth 1 (one) time each day 2 Active gabapentin (NEURONTIN) 600 MG tablet Take by mouth 3 (three) times a day 2 Active glimepiride (AMARYL) 4 MG tablet Take 4 mg by mouth 1 (one) time each day 2 Active levothyroxine sodium (TIROSINT) 137 MCG capsule Take 137 mcg by mouth 1 (one) time each day 2 Active fluticasone (FLONASE) 50 MCG/ACT nasal spray Administer 1 spray into each nostril 1 (one) time each day Active clopidogrel (PLAVIX) 75 MG tablet Take 75 mg by mouth 1 (one) time each day Active ferrous sulfate 325 (65 Fe) MG [...] each day 90 tablet 3 3 Active Additional Information Patient taking differently: 5 mgOral Daily, Reported on 06/04/2024 busPIRone (BUSPAR) 7.5 MG tablet Take 7.5 mg by mouth in the morning and 7.5 mg in the evening and 7.5 mg before bedtime. Active ezetimibe (ZETIA) 10 MG tablet Take 10 mg by mouth 1 (one) time each day Active famotidine (PEPCID) 20 MG tablet Take 20 mg by mouth in the morning and 20 mg in the evening. Active furosemide (LASIX) 20 MG tablet Take 20 mg by mouth in the morning and 20 mg in the evening. Active pantoprazole (PROTONIX) 40 MG EC tablet Take 40 mg by mouth 1 (one) time each day before breakfast Do not crush, chew, or split. Active spironolactone (ALDACTONE) 25 MG tablet Take 25 mg by mouth 1 (one) time each day Active sucralfate (CARAFATE) 1 g tablet Take 1 g by mouth in the morning and 1 g at noon and 1 g in the evening and 1 g before bedtime. Active amLODIPine (NORVASC) 5 MG tablet Take 1 tablet (5 mg total) by mouth 1 (one) time each day 30 tablet 11 5 06/04/19 26 Active allopurinol (ZYLOPRIM) 100 MG tablet Take 100 mg by mouth 1 (one) time each day 2 06/04/19 25 Discontin ued(Med List Maintenan ce) metFORMIN (GLUCOPHAGE) 500 MG tablet Take 500 mg by mouth in the morning and 500 mg in the evening. 2 06/04/19 25 Discontin ued(Med List Maintenan ce) omeprazole OTC (PriLOSEC OTC) 20 MG EC tablet Take 20 mg by mouth 1 (one) time each day 2 06/04/19 25 Discontin ued(Med List Maintenan ce) pramipexole (MIRAPEX) 0.125 MG tablet Take 0.125 mg by mouth 1 (one) time each day 2 06/04/19 25 Discontin ued(Med List Maintenan ce) sertraline (ZOLOFT) 100 MG tablet Take 100 mg by mouth in the morning and 100 mg in the evening. 2 06/04/19 25 Discontin ued(Med List Maintenan ce) aspirin (ST JUANIS) 81 MG EC tablet Take 81 mg by mouth 1 (one) time each day 2 06/04/19 25 Discontin ued(Med List Maintenan ce) budesonide-for moterol (SYMBICORT) 160-4.5 MCG/ACT inhaler Inhale 2 puffs 2 (two) times a day Rinse mouth with water after use to reduce aftertaste and incidence of candidiasis. Do not swallow. 06/04/19 25 Discontin ued(Med List Maintenan ce) amLODIPine (NORVASC) 10 MG tablet TAKE 1 TABLET BY MOUTH 1 TIME EACH DAY. 90 tablet 1 3 06/04/19 25 Discontin ued(Med List Maintenan ce) Active Problems Problem Noted Date Diagnosed Date [...] 11/14---osteopenia back and hip Peripheral vascular disease 02/25/2006 1205/2022 Overview (04/04/2023): Right carotid enarterectomy 2000 Left [...] abnormal 08/17/2005 04/04/2023 Overview (04/04/2023): Stable x 1995 IMO update Polyp of vocal cord or [...] Diagnosed Date Resolved Date Abscess 11/22/2021 12/28/2021 Encounters Date Type Department Care Team Description 06/04/2024 9:30 AM EST [facility] [address] [phone] Elia Winters MD Other acute kidney failure (HCC) (Primary Dx); Hypertension; Type 2 diabetes mellitus with diabetic chronic kidney disease (HCC); Other proteinuria; Heart failure with normal ejection fraction (HCC); Stage 3 chronic kidney disease, not otherwise specified (HCC) from Last 3 Months Immunizations Name Administration Dates Next Due H1N1 Inj Preservative Free 05/30/2009 Influenza, Unspecified 02/14/2022,2013,01/20/2013,01/16/2012,07/2010,02/15/2010,02/23/2008,03/19/2007,02/26/20 06,03/01/2005 Pneumococcal Polysaccharide 09/04/2009, 3 Tdap 11/22/2021,09/21/2008 [...] Sign Reading Time Taken Comments Blood Pressure 180/80 06/04/2024 9:39 AM EST Pulse 84 06/04/2024 9:39 AM EST Temperature - - Respiratory Rate - - Oxygen Saturation 97% 04/04/2023 10:23 AM EST Inhaled Oxygen Concentration - - Weight 55.8 kg (123 lb) 06/04/2024 9:39 AM EST Height - - Body Mass Index - - Plan of Treatment Upcoming Encounters Date Type Department Care Team (Late st Contact Info) Description 09/22/2024 1:45 PM EDT [facility] [address] [place] [address] Elia Winters MD [address] [address] Health Maintenance Due Date Last [...] Procedure Name Priority Date/Time Associated Diagnosis Comments RENAL FUNCTION PANEL (EXTERNAL LAB ENTRY) Routine 03/29/2024 EXT RESULT ENTRY Routine 12/11/2021 from Last 3 Months or Most Recently Relevant to Health Maintenance Results * Renal Function Panel (External Lab) (03/29/2024) Glucose 109 mg/dL BUN 51 mg/dL eGFR 25 Sodium 140 mEq/L Potassium 4.0 mEq/L Chloride 101 Carbon Dioxide 25 mmol/L Calcium 10.1 mg/dL Phosphorus, Serum 3.1 mg/dL Albumin (Blood) 3.5 g/dL Creatinine 2.02 mg/dL Anion Gap 14 Blood 03/29/2024 Historical Provider LAB BLOOD ORDERABLES Lianet l Result * (ABNORMAL) EXT RESULT ENTRY (12/11/2021) WBC [...] 10.1 8.7 - 10.7 mg/dL eGFR Non-Afr Italian 33 Total Bilirubin 0.3 MG/DL ALT (SGPT) 12 U/L AST (SGOT) 12 U/L Alkaline Phosphatase 80 U/L Hemoglobin A1C 6.0 4.0 - 6.0 12/11/2021 Historical Provider LAB BLOOD ORDERABLES Lianet l Result from Last 3 Months or Most Recently Relevant to Health Maintenance Insurance [facility] Care Teams Ladle Watcher Relationship Specialty Start Date End Date Jaylen Taylor CNP [address] [place] [address] PCP - General 04/04/23
--- OUTSIDE RECORDS SUMMARY | 2024-06-29 16:30 | XMS_ITS | Encounter Summary ---
Author Organization [facility] Address [address] [address] Phone Care Team Providers Care Aircraft Dispatcher Name Role Phone Jaylen Taylor CNP Primary Care Provider [phone] Reason for Visit * Reason Comments LINDSEY (acute kidney injury) Encounter Details Date Type Department Care Team (Late st Contact Info) Description 06/04/2024 9:30 AM EST Office Visit [facility] [address] [phone] Elia Winters MD [address] [address] Other acute kidney failure (HCC) (Primary Dx); Hypertension; Type 2 diabetes mellitus with diabetic chronic kidney disease (HCC); Other proteinuria; Heart failure with normal ejection fraction (HCC); Stage 3 chronic kidney disease, not otherwise specified (HCC) Social History Tobacco Use Types Packs/Day Years Used Date Smoking Tobacco: Every Day Cigarettes Passive Smoke Exposure: Never Smokeless Tobacco: Never Alcohol Use Standard Drinks/Week Comments Never 0 (1 standard drink = 0.6 oz pur e alcohol) Comments Unknown Sex and Gender Information Value Date Recorded Sex Assigned at Not on file Legal Sex Female 5:22 PM EST Gender Identity Not on file Sexual Orientation Not on file documented as of this encounter Last Filed Vital Signs Vital Sign Reading Time Taken Comments Blood Pressure 180/80 06/04/2024 9:39 AM EST Pulse 84 06/04/2024 9:39 AM EST Temperature - - Respiratory Rate - - Oxygen Saturation - - Inhaled Oxygen Concentration - - Weight 55.8 kg (123 lb) 06/04/2024 9:39 AM EST Height - - Body Mass Index - - documented in this encounter Progress Notes * Elia Winters MD - 06/04/2024 9:30 AM EST [facility] Patient Name: Pallavi Mukherjee, Female Date of : 1945, 78 y.o. Date: 06/04/2024 Referring MD: Jeremy Sesay MD PCP: Jaylen Taylor CNP Reason For Visit: I had the pleasure of seeing your patient for follow up of CKD. She was [place] [facility] with decompensated CHF and worsening kidney function. The following portions of the patient's chart were reviewed in this encounter and updated as appropriate: Allergies Meds Problems Med Hx Surg Hx Fam Hx Constitutional: Negative for chills, fever, malaise/fatigue and weight loss. HENT: Negative for ear pain, hearing loss and tinnitus. Eyes: Negative for blurred vision, double vision, photophobia and pain. Respiratory: Negative for cough, hemoptysis, sputum production, shortness of breath and wheezing. Cardiovascular: Negative for chest pain, palpitations, orthopnea, claudication and leg swelling. Gastrointestinal: Negative for abdominal pain, diarrhea, nausea and vomiting. Genitourinary: Negative for dysuria, flank pain, frequency, hematuria and urgency. Musculoskeletal: Negative for myalgias. Skin: Negative for itching and rash. Neurological: Negative for dizziness, tingling and headaches. Psychiatric/Behavioral: Negative for depression. Full 13 point review of systems unremarkable except as noted above. Past Medical History: Diagnosis Date Abscess 11/22/2021 Diabetes mellitus without mention of complication, type II or unspecified type, not stated as uncontrolled (HCC) Diabetic peripheral neuropathy (HCC) Essential hypertension Gout Hypothyroidism Other and unspecified hyperlipidemia Past Surgical History: Procedure Laterality Date BACK SURGERY CARDIAC PACEMAKER PLACEMENT CAROTID ENDARTERECTOMY CAROTID STENT THYROIDECTOMY TONSILLECTOMY Social History Tobacco Use Smoking status: Every Day Current packs/day: 0.50 Types: Cigarettes Passive exposure: Never Smokeless tobacco: Never Substance Use Topics Alcohol use: Never History reviewed. No pertinent family history. Current Outpatient Medications Medication Sig Dispense Refill atorvastatin (LIPITOR) 80 MG tablet Take 80 mg by mouth 1 (one) time each day Breztri Aerosphere 160-9-4.8 MCG/ACT aerosol INHALE 1 PUFF INTO THE LUNGS TWICE A DAY busPIRone (BUSPAR) 7.5 MG tablet Take 7.5 mg by mouth in the morning and 7.5 mg in the evening and 7.5 mg before bedtime. cilostazol (PLETAL) 100 MG tablet Take 100 mg by mouth clopidogrel (PLAVIX) 75 MG tablet Take 75 mg by mouth 1 (one) time each day ezetimibe (ZETIA) 10 MG tablet Take 10 mg by mouth 1 (one) time each day famotidine (PEPCID) 20 MG tablet Take 20 mg by mouth in the morning and 20 mg in the evening. ferrous sulfate 325 (65 Fe) MG tablet TAKE 1 TABLET BY MOUTH 1 TIME EACH DAY WITH BREAKFAST. 90 tablet 1 fluticasone (FLONASE) 50 MCG/ACT nasal spray Administer 1 spray into each nostril 1 (one) time eachday furosemide (LASIX) 20 MG tablet Take 20 mg by mouth in the morning and 20 mg in the evening. gabapentin (NEURONTIN) 600 MG tablet Take by mouth 3 (three) times a day glimepiride (AMARYL) 4 MG tablet Take 4 mg by mouth 1 (one) time each day levothyroxine (SYNTHROID, LEVOTHROID) 137 MCG tablet lisinopril 10 MG tablet Take 1 tablet (10 mg total) by mouth 1 (one) time each day (Patient taking differently: Take 5 mg by mouth 1 (one) time each day) 90 tablet 3 pantoprazole (PROTONIX) 40 MG EC tablet Take 40 mg by mouth 1 (one) time each day before breakfast Do not crush, chew, or split. spironolactone (ALDACTONE) 25 MG tablet Take 25 mg by mouth 1 (one) time each day sucralfate (CARAFATE) 1 g tablet Take 1 g by mouth in the morning and 1 g at noon and 1 g in the evening and 1 g before bedtime. amLODIPine (NORVASC) 5 MG tablet Take 1 tablet (5 mg total) by mouth 1 (one) time each day 30 tablet 11 levothyroxine sodium (TIROSINT) 137 MCG capsule Take 137 mcg by mouth 1 (one) time each day (Patient not taking: Reported on 06/04/2024) No current facility-administered medications for this visit. Allergies Allergen Reactions Fish Allergy GI intolerance Other reaction(s): gi upset Flurandrenolide Ibuprofen Oxycodone-Acetaminophen Shellfish Allergy Statins Objective: Vitals: 06/04/24 0939 BP: 180/80 Pulse: 84 Weight: 123 lb (55.8 kg) Vitals reviewed. Constitutional: She is oriented to person, place, and time. She does not appear ill. HEENT: Mouth/Throat: Oropharynx is clear and moist. Eyes: Pupils are equal, round, and reactive to light. Neck: No JVD present. Cardiovascular: Regular rhythm. She exhibits no edema. Pulmonary/Chest: Breath sounds normal. Abdominal: Soft. There is no abdominal tenderness. Musculoskeletal: Normal range of motion. Neurological: She is alert and oriented to person, place, and time. Skin: Skin is warm. Psychiatric: She has a normal mood and affect. No results found for: EGFRAFR eGFR Non-Afr Uzbek Date Value Ref Range Status 06/16/2023 41 Final Chemistry Lab Units 03/29/24 0000 11/21/23 1028 06/16/23 0000 12/08/22 0000 CREATININE mg/dL 2.02 1.82* 1.30* 1.20* BUN mg/dL 51 26 24* 30* BUN / CREAT RATIO -- 14 -- -- EGFRNAFR -- -- 41 46 GLUCOSE mg/dL 109 107* 102 87 POTASSIUM mEq/L 4.0 4.0 5.2 4.6 SODIUM mEq/L 140 143 140 142 CO2 mmol/L 25 21 20 22 CHLORIDE 101 107* 105.0 114.0* ALBUMIN g/dL 3.5 3.4 3.8 -- -- Bone Mineral Lab Units 03/29/24 0000 11/21/23 1028 06/16/23 0000 12/08/22 0000 CALCIUM mg/dL 10.1 9.8 10.4 9.0 PHOSPHORUS mg/dL 3.1 3.5 -- -- CBC Lab Units 12/08/22 0000 WBC AUTO 10*3/ML 8.7 HEMATOCRIT 30.3* HEMOGLOBIN 10.1* PLATELETS AUTO 10*3/UL 164 Urine Lab Units 11/21/23 1045 ALB MG/G CREAT UR mg/g creat 1,116* No lab exists for component: SPECGRAV , GLUCOSEUR , BILIRUBINUR , RBCUR , UPROTEIN , LEUKOCYTESUR , NITRITE PLAN: Assessment & Plan 1. Other acute kidney failure (HCC) 2. Hypertension 3. Type 2 diabetes mellitus with diabetic chronic kidney disease (HCC) 4. Other proteinuria 5. Heart failure with normal ejection fraction (HCC) 6. Stage 3 chronic kidney disease, not otherwise specified (HCC) She developed LINDSEY in the setting of decompensated CHF c/w cardio renal syndrome. Scr peaked at 2.66 mg/fl Kidney function has not returned to baseline. She has chronic kidney disease due to: -diabetic kidney disease and hypertensive nephrosclerosis -residual kidney function loss from prior episode of acute kidney injury -nephron loss due to aging There was no obstructive uropathy on most recent renal US done at [place]. She is anemic and will rule out paraproteinemia. I stressed the importance of adequate glycemic and blood pressure control to avoid progression of kidney disease. Blood pressure is quite high. I will resume CCB. I am concerned she may have ortega vascular disease. LVEF 60-65% with diastolic dysfunction. She was supposed to be on ARB-NI and SGTL2i but because of her insurance she could not afford them. She is rather on lisinopril. PLAN Add amlodipine 5 mg daily RAASi Follow kidney function and electrolytes UPCR Avoid NSAID Low sodium diet Orders Placed This Encounter Renal funtion panel amLODIPine (NORVASC) 5 MG tablet Return in 4 months (on 10/02/2024). Elia Winters MD documented in this encounter Plan of Treatment Upcoming Encounters Date Type Department Care Team (Late st Contact Info) Description 09/22/2024 1:45 PM EDT Office Visit [facility] [address] [place] [address] Elia Winters MD [address] [address] Scheduled Orders Name Type Priority Associated Diagnoses Orde r Schedule Renal funtion panel Lab Routine Other acute kidney failure (HCC) Expected: 06/04/2024, Expires: 07/02/2025 documented as of this encounter Procedures Procedure Name Priority Date/Time Associated Diagnosis Comments RENAL FUNCTION PANEL (EXTERNAL LAB ENTRY) Routine 03/29/2024 documented in this encounter Results * Renal Function Panel (External Lab) (03/29/2024) Glucose 109 mg/dL BUN 51 mg/dL eGFR 25 Sodium 140 mEq/L Potassium 4.0 mEq/L Chloride 101 Carbon Dioxide 25 mmol/L Calcium 10.1 mg/dL Phosphorus, Serum 3.1 mg/dL Albumin (Blood) 3.5 g/dL Creatinine 2.02 mg/dL Anion Gap 14 Blood 03/29/2024 us Historical Provider LAB BLOOD ORDERABLES Lianet l Result documented in this encounter Visit Diagnoses Diagnosis Other acute kidney failure (HCC)- Primary Hypertension Type 2 diabetes mellitus with diabetic chronic kidney disease (HCC) Other proteinuria Heart failure with normal ejection fraction (HCC) Stage 3 chronic kidney disease, not otherwise specified (HCC) documented in this encounter Care Teams Aircraft Dispatcher Relationship Specialty Start Date End Date Jaylen Taylor CNP [address] [place] [address] PCP - General 04/04/23 documented as of this encounter
--- OUTSIDE RECORDS SUMMARY | 2024-06-29 16:30 | XMS_ITS | Continuity of Care Document ---
Author Organization [facility] [address] [facility] [address] [place] [address] Phone [phone] Care Team Providers Care Oracle Database Consultant Name Role Phone Claudia York CNP Care Team Information Receive r [phone] Problems Active Problems Provider Date Osteoporosis Emanuel [...] Indications Ordering Provider Date Vitamin D (Ergocalciferol)1.25mg (17907 Ut) Capsules 1 tab by mouth every week 8caps Emanuel Cueva M.D. 06/20/2023 Lisinopril2.5mg Tablets Take 1 Tablet Orally Every Evening Unknown Clopidogrel [id number] Tablets Take 1 Tablet By Mouth Every Day Des Sanchez MD Amlodipine [id number] Tablets Take 1 Tablet By Mouth Every Day Unknown [id number] Tablets Take 1 Tablet By Mouth 2 Times A Day For 30 Days Claudia York CNP Ferrous Vbqyrqv568(65Fe) mg Tablets Take 1 Tablet By Mouth 1 Time Each Day With Breakfast. Unknown Pramipexole Dihydrochloride0.125mg Tablets Take 2 By Mouth Daily Des Sanchez MD [id number] Capsules Take 1 Capsule By Mouth Three Times A Day Unknown Sertraline [id number] Tablets Take 1 Tablet By Mouth Twice A Day Des Sanchez MD Metformin [id number] Tablets Take 1 Tablet By Mouth Twice A Day Des Sanchez MD Atorvastatin Wzykfwy23uc Tablets Take 1 Tablet By Mouth Every Day Des Sanchez MD Levothyroxine Tivtpb271qld Tablets Take 1 Tablet By Mouth Every Day Des Sanchez MD Vital Signs Date Vital Result Comment 06/16/2023 9:37am BP Systolic 110 mmHg BP Diastolic 70 mmHg Heart Rate 72 /min Height 64 inches 5'4 Weight 128.12 lb BMI (Body Mass Index) 22.0 kg/m2 Results Test Acquired Date Facility Test Result H/L Range N ote Basic Metabolic Panel 06/16/2023 [facility] Glucose 102 mg/dL High (70-99) BUN 24 mg/dL High (8-23) Creatinine 1.3 mg/dL High (0.5-1.0) Sodium 140 mmol/L (133-145) Potassium 5.2 mmol/L (3.6-5.2) Chloride 105 mmol/L (98-107) Bicarbonate 20 mmol/L Low (22-29) Anion Gap 15 (4-17) Calcium 10.4 mg/dL (8.6-10.5 ) Estimated GFR Creatinine 41 ML/MIN/1.7 3M2 1 Laboratory test finding 06/16/2023 [facility] 25Oh Vitamin D 14.9 [...] E11.9 Type 2 diabetes mellitus* New Labs:* Hoefecy-Dg-Rquol, Ordered: 06/16/23 * Creat Clearance, Ordered: 06/16/23 * N-Telopeptide Cross Links, Urine, Ordered: 06/16/23 Functional Status Description No Information Available Mental Status Description No Information Available Referrals Description No Information Available
--- OUTSIDE RECORDS SUMMARY | 2024-06-29 16:30 | XMS_ITS | Encounter Summary ---
Author Organization [facility] Address [address] [facility] [address] [place] [address] Phone Care Team Providers Care Motorboat Mechanic Name Role Phone Jaylen Taylor CNP Primary Care Provider [phone] Encounter Details Date Type Department Care Team (Late st Contact Info) Description 04/22/2022 Telephone [facility] [address] [facility] [address] [place] [address] Ilir Roca MD Social History [...] Lina Smith - 04/22/2022 4:13 PM EST Ezay thank you, order was faxed over to [facility] [place] * Telephone Encounter - Carmen Chamorro - 04/22/2022 3:12 PM EST [facility] called they cannot preform Renal Artery duplex scans at there facility. This order will need to be placed somewhere else. Thank you documented in this encounter Plan of Treatment Upcoming Encounters Date Type Department Care Team (Late Contact Info) Description 09/22/2024 1:45 PM EDT [facility] [address] [place] [phone] Elia Winters MD [address] [facility] [address] [place] [address] documented as of this encounter Visit Diagnoses Not on filedocumented in this encounter Care Teams Motorboat Mechanic Relationship Specialty Start Date End Date Jaylen Taylor CNP [address] [place] [address] PCP - General 04/04/23 documented as of this encounter
--- OUTSIDE RECORDS SUMMARY | 2024-06-29 16:30 | XMS_ITS | Clinical Summary ---
Author Organization [facility] it Address [address] [place] [address] Care Team Providers Care Brake Repairer Name Role Phone Landy Sutherland MD Primary Care Provider [phone] Encounters Date Type Department Care Team Description 04/05/2024 Telephone Adult [facility] [address] [place] [address] Kiki Benitez [place] Medicare Annual Wellness Visit Subsequent (Has pt found a new provider since Dr. Molina left on 01/30/2024?) from Last 3 Months Surgical History Surgery Date Site/Laterality Comments OTHER SURGICAL HISTORY PROCEDURE: AR LAMNOTMY INCL W/DCMPRSN NRV ROOT 1 INTRSPC LUMBR; COMMENT: 3 back operations CAROTID ENDARTERECTOMY 2000 PROCEDURE: HISTORICAL CAROTID ENDART; COMMENT: right VAGINAL DELIVERY PROCEDURE: AR VAGINAL DELIVERY ONLY; COMMENT: x2 ABDOMINAL SURGERY age 22 PROCEDURE: AR UNLISTED PROCEDURE ABDOMEN PERITONEUM & OMENTUM; COMMENT: [...] with ophthalmic manifestations, not stated as uncontrolled(250.50) ([facility]); COMMENT: Bilateral mild nuclear sclerosis. Type II or unspecified type diabetes mellitus with renal manifestations, not stated as uncontrolled(250.40) ([facility]) 08/07/2007 DX:Type II or unspecified ty pe diabetes mellitus with renal manifestations, not stated as uncontrolled(250.40) ([facility]); COMMENT: 07/10--Ogtt neg Intol Lisinopril CKD stage [...] DX:Weight loss Pacemaker DX:Pacemaker Peripheral vascular disease ([facility]) DX:Peripheral vascular disease ([facility]) Family History Medical History Relation Name Comments [...] at Not on file Legal Sex Female 5:16 AM EST Gender Identity Not on file Sexual [...] (2 of 3) 06/01/2009 04/06/2009 Pneumococcal Vaccine: 50+ Years (2 of 2 - PCV) 09/04/2010 09/04/2009, 06/04/2002 RSV Immunization Patients 60+ Years Old (1 [...] ( season) 2024 Influenza Vaccine (#1) 2024 2, 03/11/2014, 01/20/2013, Additional history exists DTaP,Tdap,and Td Vaccines (3 - Td or Tdap) 11/23/2031 11/22/2021, 09/21/2008 HIB Vaccines Aged Out No longer eligi [...] patient's age to complete this topic Meningococcal B Vacine Aged Out No lo nger eligible based on patient's age to complete this topic RSV Immunization Patients Under 20 months Aged Out No longer eligible based on patient's age to complete this topic Varicella Vaccines Aged Out No longer eligible based on patient's age to complete this topic Care Teams Brake Repairer Relationship Specialty Start Date End Date Landy Sutherland MD [address] [place] [address] PCP - General 05/24/22
== END 2024-06-29 14:09 | disposition home or self-care (01) ==
PROVIDERS: PCP Nurse Practitioner Family; Referring Provider Internal Medicine Cardiovascular Disease; Visit Provider Nurse Practitioner Family
DX: J44.9 Chronic obstructive pulmonary disease, unspecified (principal); R05.9 Cough, unspecified; F17.210 Nicotine dependence, cigarettes, uncomplicated; R40.0 Somnolence; R06.83 Snoring; R91.1 Solitary pulmonary nodule
CPT/HCPCS: 94618; 99204

== ENCOUNTER → 2024-06-29 13:24 | Outpatient (BNVA) | payer MEDICARE, SELFPAY | PROVIDERS: PCP Nurse Practitioner Family; Referring Provider Internal Medicine Cardiovascular Disease; Visit Provider Nurse Practitioner Family | DX: J44.9 Chronic obstructive pulmonary disease, unspecified (principal); R40.0 Somnolence; R06.83 Snoring; R91.1 Solitary pulmonary nodule; R06.09 Other forms of dyspnea; F17.210 Nicotine dependence, cigarettes, uncomplicated | CPT/HCPCS: 94618; 99202 ==

== ENCOUNTER → 2024-07-15 23:59 | Outpatient (BNV) | payer MEDICARE, SELFPAY ==
--- NOTE | 2024-07-15 16:14 | MHC.OFFVIS ---
Intake Visit Reasons: Remote device check- Biotronik Allergies acetaminophen [From Percocet] Allergy (Intermediate, Verified 07/15/24 15:26) Itching oxycodone [From Percocet] Allergy (Intermediate, Verified 07/15/24 15:26) Itching Seasonal Allergies Allergy (Intermediate, Verified 07/15/24 15:26) Itchy Eyes ibuprofen [From Motrin] Allergy (Unknown, Verified 07/15/24 15:26) Swelling wheat Adverse Reaction (Unknown, Verified 07/15/24 15:26) Diarrhea lactose Adverse Reaction (Verified 07/15/24 15:26) Diarrhea PFSH Medical History Screening for lung cancer Colon cancer screening Normal physical examination, routine Viral upper respiratory illness Laboratory tests ordered as part of a complete physical exam (CPE) Cardiac pacemaker in situ Runny nose Smoking 1/2 pack a day or less SOB (shortness of breath) on exertion Smoking greater than 30 pack years Diarrhea Osteopenia Breast cancer screening Chronic diarrhea Skin tear of left upper arm without complication Aortic stenosis Restless leg syndrome No pertinent family history Hyperlipidemia Chronic back pain Osteoarthritis GERD (gastroesophageal reflux disease) Anxiety and depression Type 2 diabetes mellitus Hypertension CKD (chronic kidney disease) stage 3, GFR 30-59 ml/min Hypothyroidism Cataracts, bilateral COPD (chronic obstructive pulmonary disease) Deafness in right ear Stroke Surgical History History of esophagogastroduodenoscopy (EGD) H/O colonoscopy History of tonsillectomy History of appendectomy H/O: hysterectomy History of back surgery H/O thyroidectomy H/O endarterectomy S/P cardiac pacemaker procedure Family History Mother Bladder cancer Brother Bladder cancer Social History Household Members: Children Housing: House Do you presently have visiting nurse or other home services: No Patient Tobacco Use Status: Current everyday Tobacco user Tobacco use type: Cigarette Cigarette Packs Per Day: 0.5 Years Smoked: 70 e-Cigarette/Vaping Use: Never Used Substance Use Type: Marijuana Patient : No service: No Current occupational status: retired Current occupational exposures/hazards: No Cognitive needs: No Hearing needs: No Vision needs: No Office Procedures Cardiac Device Check Cardiac Device Check Details: Remote pacemaker report generated 07/15/2024. Pacemaker function is adequate [id number] Cardiac Device Interrogation, pacemaker Procedure code (CPT) selection complete Assessment & Plan Assessment & Plan (1) Cardiac pacemaker in situ: Comment: Biotronik dual-chamber pacemaker in place, placed in 2016 Code(s): Z95.0 - Presence of cardiac pacemaker Category: Medical Plan: See above Coding Level of Care Code Procedure Only Diagnoses Cardiac pacemaker in situ Z95.0 CPT Codes Cardiac Device Check - Cardiac Device 12: [id number] Cardiac Device Interrogation, pacemaker ([id number])
== END ==
PROVIDERS: PCP Nurse Practitioner Family; Visit Provider Internal Medicine Cardiovascular Disease
DX: Z45.018 Encounter for adjustment and management of other part of cardiac pacemaker (principal)
CPT/HCPCS: 93294

== ENCOUNTER 2024-07-30 09:50 | Outpatient (AMB) | payer MEDICARE, SELFPAY ==
--- NOTE | 2024-07-30 09:54 | A.OFFPC_ITS ---
Vital Signs 07/30/24 09:58 07/30/24 10:14 07/30/24 11:00 07/30/24 11:00 07/30/24 11:46 07/30/24 11:47 Height 5 ft 4 in Weight 125 lb 6 oz BMI 21.5 BP 208/91 H 180/70 H 190/64 H 180/78 H 148/64 H 128/64 Blood Pressure Location Rt brachial Lt brachial Lt brachial Rt brachial Lt brachial Rt brachial Position Sitting Sitting Sitting Sitting Sitting Sitting Respiration 16 Pulse 79 76 Pulse Source Pulse Oximeter Auscultation Temp 97.4 F Temp Source Oral Pulse Oximetry (%) 97 Oxygen Delivery Method Room Air Intake Visit Reasons: 3 mos HTN, depression,DM Intake Note: patient here for 3month follow up on HTN and DM Radio Dispatcher Required: No Is last menstrual period known: No Post menopausal: No Patient : No Allergies acetaminophen [From Percocet] Allergy (Intermediate, Verified 07/30/24 10:04) Itching oxycodone [From Percocet] Allergy (Intermediate, Verified 07/30/24 10:04) Itching Seasonal Allergies Allergy (Intermediate, Verified 07/30/24 10:04) Itchy Eyes ibuprofen [From Motrin] Allergy (Unknown, Verified 07/30/24 10:04) Swelling wheat Adverse Reaction (Unknown, Verified 07/30/24 10:04) Diarrhea lactose Adverse Reaction (Verified 07/30/24 10:04) Diarrhea Medication List - Last Reconciled 07/30/24 by Jaylen Taylor CNP albuterol sulfate 2.5 mg (3 mL) inhalation Q4-6H PRN aspirin (Adult Low Dose Aspirin) 81 mg PO DAILY atorvastatin 80 mg PO BEDTIME 30 days [id number] 160-9-4.8 mcg/actuation (Breztri Aerosphere) 2 inhalations inhalation BID bupropion HCl (smoking deter) 150 mg PO BID buspirone 7.5 mg PO BID cetirizine (Zyrtec) 10 mg PO DAILY 30 days clopidogrel 75 mg PO DAILY 30 days doxycycline hyclate 100 mg PO BID ezetimibe 10 mg PO DAILY famotidine 10 mg PO DAILY ferrous sulfate 325 mg PO BID 30 days folic acid 0.4 mg PO DAILY 30 days furosemide 20 mg PO DAILY gabapentin 600 mg PO BID 30 days levothyroxine 137 mcg PO DAILY mecobalamin (vitamin B12) 1,000 mcg PO DAILY metoprolol succinate ER 25 mg PO DAILY 30 days nicotine (polacrilex) 2 mg PO q1-2h x6wk, then q2-4h x3wk, then q4-8h x3wk; Start: On cigarette quit day; Max: 24 pieces/24h; Info: use >9 pieces/day during initial 6wk; avoid food/drink 15min before and after use pantoprazole 40 mg PO BID pramipexole 0.25 mg (2 x 0.125 mg) PO BEDTIME 30 days psyllium husk (Metamucil) 1 tbsp PO DAILY sertraline 100 mg PO DAILY 90 days spironolactone 25 mg PO DAILY Tobacco use date assessed: 07/30/24 Fall risk assessment: 1 Fall in past year Last assessed Fall Risk: 07/30/24 Dental Screening Dental Screen Date: 07/30/24 Did you have a dental visit in the last 12 months?: No Did you have a dental problem in the last 6 months where you did not have access to dental care?: No Was dental information given to patient?: Yes HPI HPI Comments History of Present Illness Details 78-year-old female presents for hyperten marcella, diet-controlled diabetes, anxiety, and depression follow-up. She admits to taking her medications as prescribed without adverse reactions. She notes that her anxiety and depressive symptoms are generally well controlled. She notes chronic neck burning pain which waxes and wanes but has been persistent in the last couple of months. The pain has been present for several years. She has been taking gabapentin as prescribed and Tylenol as needed. 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 She if followed by [facility] 3 times weekly for assessment and medication management/administration. COUNTS INCLUDE 234 BEDS AT THE [facility] Medical History Screening for lung cancer Colon cancer screening Normal physical examination, routine Viral upper respiratory illness Laboratory tests ordered as part of a complete physical exam (CPE) Cardiac pacemaker in situ Runny nose Smoking 1/2 pack a day or less SOB (shortness of breath) on exertion Smoking greater than 30 pack years Diarrhea Osteopenia Breast cancer screening Chronic diarrhea Skin tear of left upper arm without complication Aortic stenosis Restless leg syndrome No pertinent family history Hyperlipidemia Chronic back pain Osteoarthritis GERD (gastroesophageal reflux disease) Anxiety and depression Type 2 diabetes mellitus Hypertension CKD (chronic kidney disease) stage 3, GFR 30-59 ml/min Hypothyroidism Cataracts, bilateral COPD (chronic obstructive pulmonary disease) Deafness in right ear Stroke Surgical History History of esophagogastroduodenoscopy (EGD) H/O colonoscopy History of tonsillectomy History of appendectomy H/O: hysterectomy History of back surgery H/O thyroidectomy H/O endarterectomy S/P cardiac pacemaker procedure Family History Mother Bladder cancer Brother Bladder cancer Social History Household Members: Children Housing: House Do you presently have visiting nurse or other home services: No Patient Tobacco Use Status: Current everyday Tobacco user Tobacco use type: Cigarette Cigarette Packs Per Day: 0.5 Cigarettes Per Day: 8 Years Smoked: 70 Packs Per Year: 35 Packs per year/per ci.00 e-Cigarette/Vaping Use: Never Used Substance Use Type: Marijuana Patient : No service: No Current occupational status: retired Current occupational exposures/hazards: No Cognitive needs: No Hearing needs: No Vision needs: No Questionnaire PHQ-9 Over the last 2 weeks, how often have you been bothered by any of the following problems? 1. Little interest or pleasure in doing things: several days 2. Feeling down, depressed, or hopeless: several days 3. Trouble falling or staying asleep, or sleeping too much: several days 4. Feeling tired or having little energy: nearly every day 5. Poor appetite or overeating: several days 6. Feeling bad about yourself - or that you are a failure or have let yourself or your family down: not at all 7. Trouble concentrating on things, such as reading the newspaper or watching television: several days 8. Moving or speaking so slowly that other people could have noticed. Or the opposite - being so fidgety or restless that you have been moving around a lot more than usual: several days 9. Thoughts that you would be better off or of hurting yourself in some way: not at all Total score: 9 Depression Screening Interpretation: Positive Depression Screening Follow-up: E xisting condition and In treatment Depression Screening Done: Yes Source: Developed by Danni Israel Kurt Kroenke and colleagues, with an educational saranya from [employer]. Thrive Questionnaire Date Thrive assessed: 05/07/24 I am a: Patient What is your living situation today?: I have a steady place to live Within the past 12 months, did the food you bought not last and you didn't have the money to get more?: Never true Within the past 12 months, did you worry whether your food would run out before you got money to buy more?: Never true Do you have trouble paying for medicines?: Yes Do you have trouble getting transportation to medical appointments?: No Do you have trouble paying your heating and electricity bill?: No Do you have trouble taking care of your child, family member or friend?: No Do you have trouble with day-to-day activities such as bathing, preparing meals, shopping, managing finances, etc.?: No Are you currently unemployed and looking for a job?: No Are you interested in more education?: No Please select the resources that you would like help with: None Currently or been in a relationship where the following occur: No concerns reported THRIVE Score: 0 AUDIT C Alcohol Use Questionnaire (AUDIT-C) 1. How often do you have a drink containing alcohol?: Never Total Score: 0 MARCELA-7 AMB Questionnaire MARCELA-7 Date MARCELA - 7 assessed: 04/21/24 Feeling nervous, anxious, or on edge: 1 = Several days Not being able to stop or control worryin = Not at all Worrying too much about different things: 0 = Not at all Trouble relaxin = More than half the days Being so restless that it is hard to sit still: 1 = Several days Becoming easily annoyed or irritable: 0 = Not at all Feeling afraid as if something awful might happen: 0 = Not at all Total MARCELA-7 score (0-4 normal; 5-9 mild; 10-14 moderate; 15-21 severe): 4 Source: Developed by Danni Israel Kurt Kroenke and colleagues, with an educational saranya from [employer]. Review of Systems Const Details: Const Denies chills, Denies fatigue, Denies fever(s), Denies headache(s) and Denies weakness ENT Denies dizziness and Denies headache(s) Card Denies chest pain, Denies lightheadedness, Denies dyspnea and Denies other (Palpitations) Resp Denies cough, Denies dyspnea, Denies wheezing and Denies other ( shortness of breath) GI Denies abdominal pain, Denies melena, Denies hematochezia, Denies change in bowel habits, Denies dyspepsia and Denies nausea Denies hematuria and Denies dysuria Musc Reports neck pain, Denies abnormal gait, Denies numbness and Denies tingling Skin/Breast Denies rash, Denies unusual bruising and Denies wounds Neuro Denies abnormal gait, Denies dizziness, Denies headache(s), Denies memory loss, Denies numbness, Denies Sensory deficit (Neuro), Denies tingling and Denies weakness Psych Denies anxiety, Denies depression, Denies memory loss Endo Denies cold intolerance, Denies fatigue, Denies heat intolerance, Denies polydipsia and Denies polyuria Aller/Immun Denies wheezing Physical exam (Primary Care) Vital Signs: Last Vital Signs Temp 97.4 F 07/30/24 09:58 Pulse 76 07/30/24 10:14 Resp 16 07/30/24 09:58 BP 128/64 07/30/24 11:47 Pulse Ox 97 07/30/24 09:58 Oxygen Delivery Method Room Air 07/30/24 09:58 BMI result Body Mass Index 21.5 Tobacco/Smoking Status: Tobacco use Status Tobacco use date assessed 07/30/24 07/30/24 10:04 Patient Tobacco Use Status Current everyday Tobacco 07/30/24 09:55 Tobacco use type Cigarette 07/30/24 09:55 e-Cigarette/Vaping Use Never Used 07/30/24 09:55 PHQ-9: PHQ-9 Score PHQ-9: Total score 9 07/30/24 11:46 Depression Screening Interpretation: Positive Depression Screening Follow-up: Existing condition and In treatment Thrive Assessment: Date of Thrive Assessment Date Thrive assessed 05/07/24 07/30/24 09:55 Currently or been in a relationship where the following occur: No concerns reported Const Other: General: no acute distress and well developed Nutritional Appearance: well nourished Orientation/consciousness: patient oriented x3 HENMT Head: Yes normocephalic and Yes atraumatic Eyes General: appearance normal, both eyes and all related structures Pupils: Equal, round and reactive pupils present EOM: EOMs intact bilaterally Resp Effort & Inspection: normal respiratory effort Auscultation: clear to auscultation bilaterally Cardio Rate: regular rate Rhythm: regular rhythm Heart sounds: S1 normal heart sound present, S2 normal heart sound present, no gallops, positive murmurs and no rubs GI Palpation (GI): No Abdominal aortic bruit present, Soft to palpation, nontender, No hepatosplenomegaly present and No Rebound tenderness present Auscultation: normal bowel sounds General: Yes no CVA tenderness Back/Spine/Pelvis Back: no CVA tenderness Cervical Spine: cervical ROM normal and No Cervical spine tenderness Thoracic/Lumbar Spine: thoraco-lumbar ROM normal, No pain with thoraco-lumbar ROM, No thoracic spinal tenderness and No lumbar spinal tenderness Extrem General: Yes normal to inspection, No edema and No calf tenderness Skin General: warm and dry. Normal skin color. Normal skin turgor Neuro General: patient oriented x3, gait normal and no focal neuro deficit Cranial nerves: Yes Equal, round and reactive pupils present Cognition (Neuro): normal cognition Gait exam (Neuro): Normal gait present Sensory Exam: No Sensory deficit (Neuro) Psych Appearance: grossly normal Affect: normal affect Attitude: cooperative Thought process: Normal thought process present Results AMB Hemoglobin A1c AMB Hemoglobin A1c 5.7 % Last Edit by Vandana Wilkinson MA on 07/30/24 10:24 Results Reviewed Results Reviewed: Laboratory Last Values Hgb A1c (Clinic) 5.7 % (4.0-6.0) 07/30/24 10:22 Coding Level of Care Code Est Pt Level 4 (75078) Diagnoses Primary hypertension I10 Hypertension type: primary hypertension Type 2 diabetes mellitus E11.9 Diabetes mellitus complication status: without complication Iron deficiency anemia D50.9 Stage 3b chronic kidney disease N18.32 Chronic kidney disease stage 3 subtype: stage 3b (GFR 30-44) Anxiety and depression F41.9; F32.A Chronic neck pain M54.2; G89.29 Smoking 1/2 pack a day or less F17.210 Assessment & Plan Assessment & Plan (1) Hypertension: Code(s): I10 - Essential (primary) hypertension Category: Medical Qualifiers: Hypertension type: primary hypertension Qualified Code(s): I10 - Esslawrence tial (primary) hypertension Plan: Resting blood pressure is 180/70, above goal of less than 130/80. Heart rate is 76. Blood pressure improved to 128/64 after 0.2 mg of stat clonidine. Will increase metoprolol to 25 mg twice daily; advised to take as prescribed. Low-sodium diet and routine exercise encouraged. Follow-up in 1 week or sooner with symptoms or concerns. Verbalized understanding and agreed with treatment plan. (2) Type 2 diabetes mellitus: Code(s): E11.9 - Type 2 diabetes mellitus without complications Category: Medical Qualifiers: Diabetes mellitus complication status: without complication Plan: A1c today is 5.7%, within goal of less than 7.0%. Previous A1c was 5.4% Her diabetes has been diet controlled. ADA diet and routine exercise encouraged. Will monitor A1c level in 6 months. Verbalized understanding and agreed with treatment plan. (3) Iron deficiency anemia: Code(s): D50.9 - Iron deficiency anemia, unspecified Category: Medical Plan: Followed by [facility] hematology/oncology. (4) CKD (chronic kidney disease) stage 3, GFR 30-59 ml/min: Code(s): N18.30 - Chronic kidney disease, stage 3 unspecified Category: Medical Qualifiers: Chronic kidney disease stage 3 subtype: stage 3b (GFR 30-44) Qualified Code(s): N18.32 - Chronic kidney disease, stage 3b Plan: Followed by Dr. Winters from [facility]. (5) Anxiety and depression: Code(s): F41.9 - Anxiety disorder, unspecified; F32.A - Depression, unspecified Category: Medical Plan: Anxiety and depressive symptoms are generally well controlled. PHQ-9 score revealed mild depression. MARCELA-7 score is normal. Continue current treatment regimen. Routine exercise encouraged. Follow-up with worsening or new symptoms. Verbalized understanding and agreed with treatment plan. (6) Chronic neck pain: Code(s): M54.2 - Cervicalgia; G89.29 - Other chronic pain Category: Medical Plan: She has chronic neck burning pain which waxes and wanes but has been persistent in the last couple of months. The pain has been present for several years. She has been taking gabapentin as prescribed and Tylenol as needed. 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 Continue current treatment regimen. Warm/cool compresses encouraged. X-ray of the cervical spine ordered. Will review results and make changes as needed. Follow-up with worsening or new symptoms. Verbalized understanding and agreed with treatment plan. (7) Smoking 1/2 pack a day or less: Code(s): F17.210 - Nicotine dependence, cigarettes, uncomplicated Category: Social Hx Plan: Smoking cessation encouraged. Nicotine gum were ordered yesterday as requested; advised to take as prescribed. Follow-up as needed. Verbalized understanding and agreed with the plan. Orders: Orders AMB Hemoglobin A1c Today Z13.9 - Encounter for screening, unspecified XR cervical spine 2V Today G89.29 - Other chronic pain, M54.2 - Cervicalgia Medications: New metoprolol succinate ER 50 mg PO DAILY 30 days 30 tabs 3RF Discontinued metoprolol succinate ER Discontinued Reason: Doctor's Order 25 mg PO DAILY 30 days 30 tabs 1RF
[2024-07-30 09:58] VITALS: BP 208/91; PULSE 79; RESP 16; TEMP 36.3; O2SAT 97; BMI 21.5
[2024-07-30 10:14] VITALS: BP 180/70; PULSE 76
[2024-07-30 11:00] VITALS: BP 180/78; BP 190/64
[2024-07-30 11:46] VITALS: BP 148/64
[2024-07-30 11:47] VITALS: BP 128/64
== END 2024-07-30 11:11 | disposition home or self-care (01) ==
LOC: HO.HMCFM 09:50
PROVIDERS: PCP Nurse Practitioner Family; Visit Provider Nurse Practitioner Family
DX: I10 Essential (primary) hypertension (principal); E11.9 Type 2 diabetes mellitus without complications; D50.9 Iron deficiency anemia, unspecified; N18.32 Chronic kidney disease, stage 3b; F41.9 Anxiety disorder, unspecified; F32.A Depression, unspecified; M54.2 Cervicalgia; G89.29 Other chronic pain; F17.210 Nicotine dependence, cigarettes, uncomplicated; Z13.9 Encounter for screening, unspecified

== ENCOUNTER → 2024-07-30 09:50 | Outpatient (BNVA) | payer MEDICARE, SELFPAY | PROVIDERS: PCP Nurse Practitioner Family; Visit Provider Nurse Practitioner Family | DX: D50.9 Iron deficiency anemia, unspecified (principal); I12.9 Hypertensive chronic kidney disease with stage 1 through stage 4 chronic kidney disease, or unspecified chronic kidney disease; E11.22 Type 2 diabetes mellitus with diabetic chronic kidney disease; N18.32 Chronic kidney disease, stage 3b; F41.9 Anxiety disorder, unspecified; F32.A Depression, unspecified; M54.2 Cervicalgia; G89.29 Other chronic pain; F17.210 Nicotine dependence, cigarettes, uncomplicated | CPT/HCPCS: 83036; 99212 ==

== ENCOUNTER 2024-08-03 10:41 | Outpatient (AMB) | payer MEDICARE, SELFPAY ==
--- NOTE | 2024-08-03 10:47 | A.OFFPC_ITS ---
Vital Signs 08/03/24 10:53 Height 5 ft 4 in Weight 127 lb BMI 21.8 BP 153/68 H Blood Pressure Location Rt brachial Position Sitting Respiration 16 Pulse 78 Pulse Source Pulse Oximeter Temp 97.5 F Temp Source Oral Pulse Oximetry (%) 100 Oxygen Delivery Method Room Air Intake Visit Reasons: F/U Care Intake Note: patient here for f/u care Sewing Inspector Required: No Is last menstrual period known: No Post menopausal: No Patient : No Allergies acetaminophen [From Percocet] Allergy (Intermediate, Verified 08/03/24 10:56) Itching oxycodone [From Percocet] Allergy (Intermediate, Verified 08/03/24 10:56) Itching Seasonal Allergies Allergy (Intermediate, Verified 08/03/24 10:56) Itchy Eyes ibuprofen [From Motrin] Allergy (Unknown, Verified 08/03/24 10:56) Swelling wheat Adverse Reaction (Unknown, Verified 08/03/24 10:56) Diarrhea lactose Adverse Reaction (Verified 08/03/24 10:56) Diarrhea Medication List - Last Reconciled 08/03/24 by Jaylen Taylor CNP albuterol sulfate 2.5 mg (3 mL) inhalation Q4-6H PRN aspirin (Adult Low Dose Aspirin) 81 mg PO DAILY atorvastatin 80 mg PO BEDTIME 30 days mfbyoyyonz-deirajpb-ooshlrrpzd 160-9-4.8 mcg/actuation (Breztri Aerosphere) 2 inhalations inhalation BID bupropion HCl (smoking deter) 150 mg PO BID buspirone 7.5 mg PO BID cetirizine (Zyrtec) 10 mg PO DAILY 30 days clopidogrel 75 mg PO DAILY 30 days ezetimibe 10 mg PO DAILY famotidine 10 mg PO DAILY ferrous sulfate 325 mg PO BID 30 days folic acid 0.4 mg PO DAILY 30 days furosemide 20 mg PO DAILY gabapentin 600 mg PO BID 30 days levothyroxine 137 mcg PO DAILY mecobalamin (vitamin B12) 1,000 mcg PO DAILY metoprolol succinate ER 50 mg PO DAILY 30 days nicotine (polacrilex) 2 mg PO q1-2h x6wk, then q2-4h x3wk, then q4-8h x3wk; Start: On cigarette quit day; Max: 24 pieces/24h; Info: use >9 pieces/day during initial 6wk; avoid food/drink 15min before and after use pantoprazole 40 mg PO BID pramipexole 0.25 mg (2 x 0.125 mg) PO BEDTIME 30 days psyllium husk (Metamucil) 1 tbsp PO DAILY sertraline 100 mg PO DAILY 90 days spironolactone 25 mg PO DAILY Tobacco use date assessed: 08/03/24 Fall risk assessment: 2 + Falls in past year Last assessed Fall Risk: 08/03/24 Dental Screening Dental Screen Date: 08/03/24 Did you have a dental visit in the last 12 months?: No Did you have a dental problem in the last 6 months where you did not have access to dental care?: No Was dental information given to patient?: No (I already gave her the list) HPI HPI Comments History of Present Illness Details 78-year-old female presents for hyperten marcella follow-up. She admits to taking her medications as prescribed without adverse reactions. However, she is unsure whether she picked up her new script for metoprolol succinate 50 mg daily from the pharmacy. She has not picked up nicotine gum that was recently ordered for smoking cessation. She continues to smoke half a pack of cigarettes daily. She has not gotten cervical x-ray done. She denies acute symptoms at this time. [facility] Medical History Screening for lung cancer Colon cancer screening Normal physical examination, routine Viral upper respiratory illness Laboratory tests ordered as part of a complete physical exam (CPE) Cardiac pacemaker in situ Runny nose Smoking 1/2 pack a day or less SOB (shortness of breath) on exertion Smoking greater than 30 pack years Diarrhea Osteopenia Breast cancer screening Chronic diarrhea Skin tear of left upper arm without complication Aortic stenosis Restless leg syndrome No pertinent family history Hyperlipidemia Chronic back pain Osteoarthritis GERD (gastroesophageal reflux disease) Anxiety and depression Type 2 diabetes mellitus Hypertension CKD (chronic kidney disease) stage 3, GFR 30-59 ml/min Hypothyroidism Cataracts, bilateral COPD (chronic obstructive pulmonary disease) Deafness in right ear Stroke Surgical History History of esophagogastroduodenoscopy (EGD) H/O colonoscopy History of tonsillectomy History of appendectomy H/O: hysterectomy History of back surgery H/O thyroidectomy H/O endarterectomy S/P cardiac pacemaker procedure Family History Mother Bladder cancer Brother Bladder cancer Social History Household Members: Children Housing: House Do you presently have visiting nurse or other home services: No Patient Tobacco Use Status: Current everyday Tobacco user Tobacco use type: Cigarette Cigarette Packs Per Day: 0.5 Cigarettes Per Day: 8 Years Smoked: 70 e-Cigarette/Vaping Use: Never Used Substance Use Type: Marijuana service: No Current occupational status: retired Current occupational exposures/hazards: No Cognitive needs: No Hearing needs: No Vision needs: No Questionnaire PHQ-9 Over the last 2 weeks, how often have you been bothered by any of the following problems? 1. Little interest or pleasure in doing things: several days 2. Feeling down, depressed, or hopeless: several days 3. Trouble falling or staying asleep, or sleeping too much: several days 4. Feeling tired or having little energy: several days 5. Poor appetite or overeating: not at all 6. Feeling bad about yourself - or that you are a failure or have let yourself or your family down: not at all 7. Trouble concentrating on things, such as reading the newspaper or watching television: several days 8. Moving or speaking so slowly that other people could have noticed. Or the opposite - being so fidgety or restless that you have been moving around a lot more than usual: not at all 9. Thoughts that you would be better off or of hurting yourself in some way: not at all Total score: 5 Depression Screening Interpretation: Positive Depression Screening Done: Yes 62423 - PHQ-9 Billing: Yes Source: Developed by Drs. Bonifacio Bethea, Danni Villa, Rico Wilcox and colleagues, with an educational saranya from [employer]. Thrive Questionnaire Date Thrive assessed: 07/30/24 I am a: Patient What is your living situation today?: I have a steady place to live Within the past 12 months, did the food you bought not last and you didn't have the money to get more?: Never true Within the past 12 months, did you worry whether your food would run out before you got money to buy more?: Never true Do you have trouble paying for medicines?: Yes Do you have trouble getting transportation to medical appointments?: No Do you have trouble paying your heating and electricity bill?: No Do you have trouble taking care of your child, family member or friend?: No Do you have trouble with day-to-day activities such as bathing, preparing meals, shopping, managing finances, etc.?: No Are you currently unemployed and looking for a job?: No Are you interested in more education?: No Please select the resources that you would like help with: None Currently or been in a relationship where the following occur: No concerns reported THRIVE Score: 0 MARCELA-7 AMB Questionnaire MARCELA-7 Date MARCELA - 7 assessed: 08/03/24 Feeling nervous, anxious, or on edge: 1 = Several days Not being able to stop or control worryin = Not at all Worrying too much about different things: 0 = Not at all Trouble relaxin = Nearly every day Being so restless that it is hard to sit still: 2 = More than half the days Becoming easily annoyed or irritable: 0 = Not at all Feeling afraid as if something awful might happen: 0 = Not at all Total MARCELA-7 score (0-4 normal; 5-9 mild; 10-14 moderate; 15-21 severe): 6 Source: Developed by Drs. Bonifacio Bethea, Danni Villa, Rico Wilcox and colleagues, with an educational saranya from [employer]. MARCELA-7 Assessment Billing MARCELA-7 Assessment Tool: MARCELA-7 Assessment 94151 Review of Systems Const Details: Const Denies chills, Denies fatigue, Denies fever(s), Denies headache(s) and Denies weakness ENT Denies dizziness and Denies headache(s) Card Denies chest pain, Denies lightheadedness, Denies dyspnea and Denies other (Palpitations) Resp Denies cough, Denies dyspnea, Denies wheezing and Denies other ( shortness of breath) GI Denies abdominal pain, Denies melena, Denies hematochezia, Denies change in bowel habits, Denies dyspepsia and Denies nausea Denies hematuria and Denies dysuria Musc Reports chronic neck pain Skin/Breast Denies rash, Denies unusual bruising and Denies wounds Neuro Denies abnormal gait, Denies dizziness, Denies headache(s), Denies memory loss, Denies numbness, Denies Sensory deficit (Neuro), Denies tingling and Denies weakness Psych Denies anxiety, Denies depression, Denies memory loss Endo Denies cold intolerance, Denies fatigue, Denies heat intolerance, Denies polydipsia and Denies polyuria Aller/Immun Denies wheezing Physical exam (Primary Care) Vital Signs: Last Vital Signs Temp 97.5 F 08/03/24 10:53 Pulse 78 08/03/24 10:53 Resp 16 08/03/24 10:53 BP 153/68 H 08/03/24 10:53 Pulse Ox 100 08/03/24 10:53 Oxygen Delivery Method Room Air 08/03/24 10:53 BMI result Body Mass Index 21.8 Tobacco/Smoking Status: Tobacco use Status Tobacco use date assessed 08/03/24 08/03/24 10:54 Patient Tobacco Use Status Current everyday Tobacco 08/03/24 10:47 Tobacco use type Cigarette 08/03/24 10:47 e-Cigarette/Vaping Use Never Used 08/03/24 10:47 PHQ-9: PHQ-9 Score PHQ-9: Total score 5 08/03/24 11:00 Depression Screening Interpretation: Positive Thrive Assessment: Date of Thrive Assessment Date Thrive assessed 07/30/24 08/03/24 10:47 Currently or been in a relationship where the following occur: No concerns reported Const Other: General: no acute distress and well developed Nutritional Appearance: well nourished Orientation/consciousness: patient oriented x3 HENMT Head: Yes normocephalic and Yes atraumatic Eyes General: appearance normal, both eyes and all related structures Pupils: Equal, round and reactive pupils present EOM: EOMs intact bilaterally Resp Effort & Inspection: normal respiratory effort Auscultation: clear to auscultation bilaterally Cardio Rate: regular rate Rhythm: regular rhythm Heart sounds: S1 normal heart sound present, S2 normal heart sound present, no gallops, positive murmurs and no rubs GI Palpation (GI): No Abdominal aortic bruit present, Soft to palpation, nontender, No hepatosplenomegaly present and No Rebound tenderness present Auscultation: normal bowel sounds General: Yes no CVA tenderness Back/Spine/Pelvis Back: no CVA tenderness Cervical Spine: cervical ROM normal and No Cervical spine tenderness Thoracic/Lumbar Spine: thoraco-lumbar ROM normal, No pain with thoraco-lumbar ROM, No thoracic spinal tenderness and No lumbar spinal tenderness Extrem General: Yes normal to inspection, No edema and No calf tenderness Skin General: warm and dry. Normal skin color. Normal skin turgor Neuro General: patient oriented x3, gait normal and no focal neuro deficit Cranial nerves: Yes Equal, round and reactive pupils present Cognition (Neuro): normal cognition Gait exam (Neuro): Normal gait present Sensory Exam: No Sensory deficit (Neuro) Psych Appearance: grossly normal Affect: normal affect Attitude: cooperative Thought process: Normal thought process present Coding Level of Care Code Est Pt Level 3 (02597) Diagnoses Primary hypertension I10 Hypertension type: primary hypertension Smoking 1/2 pack a day or less F17.210 Chronic neck pain M54.2; G89.29 Additional Codes MARCELA-7 Assessment Billing - MARCELA-7 Assessment Tool: MARCELA-7 Assessment 80050 ([id number]) PHQ-9 - 01182 - PHQ-9 Billing: Yes ([id number]) Assessment & Plan Assessment & Plan (1) Hypertension: Code(s): I10 - Essential (primary) hypertension Category: Medical Qualifiers: Hypertension type: primary hypertension Qualified Code(s): I10 - Essential (primary) hypertension Plan: Resting blood pressure is 153/68, above goal of less than 130/80. Continue current treatment regimen. The office nurse will contact the patient's VNA nurse for med reconsideration before further medication adjustments. Follow-up in 1 week or return sooner with new or worsening symptoms. Verbalized understanding and agreed with treatment plan. (2) Smoking 1/2 pack a day or less: Code(s): F17.210 - Nicotine dependence, cigarettes, uncomplicated Category: Social Hx Plan: She smokes half a pack of cigarettes daily. Instructed on the health risks and complications of cigarette smoking and cessation encouraged. Advised to take nicotine gum as prescribed. Follow-up as needed. Verbalized understanding and agreed with the plan. (3) Chronic neck pain: Code(s): M54.2 - Cervicalgia; G89.29 - Other chronic pain Category: Medical Plan: Continue current treatment regimen. Encouraged to get x-ray done. Medications: Discontinued doxycycline hyclate Discontinued Reason: Patient no longer taking 100 mg PO BID 14 caps 0RF
[2024-08-03 10:53] VITALS: BP 153/68; PULSE 78; RESP 16; TEMP 36.4; O2SAT 100; BMI 21.8
--- OUTSIDE RECORDS SUMMARY | 2024-08-03 12:49 | XMS_ITS | Continuity of Care Document ---
Author Organization [facility] [address] [facility] [address] [facility] [address] [place] [address] Phone [phone] Care Team Providers Care Operations Liaison Name Role Phone Claudia York CNP Care Team Information Receive r [phone] Problems Active Problems Provider Date Osteoporosis Emanuel [...] Indications Ordering Provider Date Vitamin D (Ergocalciferol)1.25mg (07190 Ut) Capsules 1 tab by mouth every week 8caps Emanuel Cueva M.D. 06/20/2023 Lisinopril2.5mg Tablets Take 1 Tablet Orally Every Evening Unknown Clopidogrel Vltjgmtov51qs Tablets Take 1 Tablet By Mouth Every Day Des Sanchez MD Amlodipine Qkyvywzd71rn Tablets Take 1 Tablet By Mouth Every Day Unknown Bxovpqvuff419py Tablets Take 1 Tablet By Mouth 2 Times A Day For 30 Days Claudia York CNP Ferrous Qrgdioe781(65Fe) mg Tablets Take 1 Tablet By Mouth 1 Time Each Day With Breakfast. Unknown Pramipexole Dihydrochloride0.125mg Tablets Take 2 By Mouth Daily Des Sanchez MD Hdpxlqxzbo869cl Capsules Take 1 Capsule By Mouth Three Times A Day Unknown Sertraline WKS373qj Tablets Take 1 Tablet By Mouth Twice A Day Des Sanchez MD Metformin DFZ253su Tablets Take 1 Tablet By Mouth Twice A Day Des Sanchez MD Atorvastatin Scemrgn46qv Tablets Take 1 Tablet By Mouth Every Day Des Sanchez MD Levothyroxine Vjhrht508eel Tablets Take 1 Tablet By Mouth Every Day Des Sanchez MD Vital Signs Date Vital Result Comment 06/16/2023 9:37am BP Systolic 110 mmHg BP Diastolic 70 mmHg Heart Rate 72 /min Height 64 inches 5'4 Weight 128.12 lb BMI (Body Mass Index) 22.0 kg/m2 Results Test Acquired Date Facility Test Result H/L Range N ote Basic Metabolic Panel 06/16/2023 [facility] Glucose 102 mg/dL High (70-99) BUN 24 mg/dL High (8-23) Creatinine 1.3 mg/dL High (0.5-1.0) Sodium 140 mmol/L (133-145) Potassium 5.2 mmol/L (3.6-5.2) Chloride 105 mmol/L (98-107) Bicarbonate 20 mmol/L Low (22-29) Anion Gap 15 (4-17) Calcium 10.4 mg/dL (8.6-10.5 ) Estimated GFR Creatinine 41 ML/MIN/1.7 3M2 1 25Oh Vitamin D 06/16/2023 [facility] 25Oh Vitamin D 14.9 NG/ML Low (20-50) Albumin 06/16/2023 [facility] Albumin 4.6 GM/DL (3.4-4.8) PTH, Intact 06/16/2023 [facility] PTH, Intact 102 pg/mL High (15-65) Phosphorus 06/16/2023 [facility] Phosphorus 3.6 mg/dL (2.5-4.5) 1 Creatinine based [...] E11.9 Type 2 diabetes mellitus* New Labs:* Beekmeg-Xs-Qfbzk, Ordered: 06/16/23 * Creat Clearance, Ordered: 06/16/23 * N-Telopeptide Cross Links, Urine, Ordered: 06/16/23 Functional Status Description No Information Available Mental Status Description No Information Available Referrals Description No Information Available
--- OUTSIDE RECORDS SUMMARY | 2024-08-03 12:49 | XMS_ITS | Clinical Summary ---
Author Organization [facility] Address [address] [facility] [address] [place] [address] Phone Care Team Providers Care Information Technology Auditor Name Role Phone Jaylen Taylor CNP Primary Care Provider [phone] Allergies Active Allergy Reactions Criticality Noted Date [...] 30 tablet 11 5 06/04/19 26 Active Active Problems Problem Noted Date Diagnosed [...] [facility] [address] [place] [phone] Elia Winters MD Other acute kidney failure [...] Office Visit [facility] [address] [place] [phone] Elia Winters MD [facility] [address] [address] Health Maintenance Due Date Last [...] 10.1 8.7 - 10.7 mg/dL eGFR Non-Afr Kazakh 33 Total Bilirubin 0.3 MG/DL ALT (SGPT) 12 U/L AST (SGOT) 12 U/L Alkaline Phosphatase 80 U/L Hemoglobin A1C 6.0 4.0 - 6.0 12/11/2021 [facility] Provider LAB BLOOD ORDERABLES Lianet l Result from Last 3 Months or Most Recently Relevant to Health Maintenance Insurance [facility] Care Teams Information Technology Auditor Relationship Specialty Start Date End Date Jaylen Taylor CNP [address] [place] [address] PCP - General 04/04/23
--- OUTSIDE RECORDS SUMMARY | 2024-08-03 12:49 | XMS_ITS | Encounter Summary ---
Author Organization [facility] Address [address] [facility] [address] [place] [address] Phone Care Team Providers Care Sales Demonstrator Name Role Phone Jaylen aTylor CNP Primary Care Provider Encounter Details Date Type Department Care Team (Late st Contact Info) Description 04/22/2022 Telephone [facility] [address] [facility] [address] [facility] [address] [place] [address] Ilir Roca MD Social History [...] thank you, order was faxed over to [facility] * Telephone Encounter - Carmen Chamorro - [...] Visit [facility] [address] [place] [phone] Elia Winters MD [address] [facility] [address] [place] [address] documented as of this encounter Visit Diagnoses Not on filedocumented in this encounter Care Teams Sales Demonstrator Relationship Specialty Start Date End Date Jaylen Taylor CNP [address] [place] [address] PCP - General 04/04/23 documented as of this encounter
--- OUTSIDE RECORDS SUMMARY | 2024-08-03 12:49 | XMS_ITS | Clinical Summary ---
Author Organization [facility] ity Address [address] [place] [address] Care Team Providers Care Hotel Server Name Role Phone Landy Sutherland MD Primary Care Provider [phone] Surgical History Surgery Date Site/Laterality Comments OTHER SURGICAL HISTORY PROCEDURE: TX LAMNOTMY INCL W/DCMPRSN NRV ROOT 1 INTRSPC LUMBR; COMMENT: 3 back operations CAROTID ENDARTERECTOMY 2000 PROCEDURE: HISTORICAL CAROTID ENDART; COMMENT: right VAGINAL DELIVERY PROCEDURE: TX VAGINAL DELIVERY ONLY; COMMENT: x2 ABDOMINAL SURGERY age 22 PROCEDURE: TX UNLISTED PROCEDURE ABDOMEN PERITONEUM & OMENTUM; COMMENT: [...] with ophthalmic manifestations, not stated as uncontrolled(250.50) ([facility]); COMMENT: Bilateral mild nuclear sclerosis. Type II or unspecified type diabetes mellitus with renal manifestations, not stated as uncontrolled(250.40) (CMS/HCC) 08/07/2007 DX:Type II or unspecified ty pe diabetes mellitus with renal manifestations, not stated as uncontrolled(250.40) ([facility]); COMMENT: 07/10--Ogtt neg Intol Lisinopril CKD stage [...] DX:Weight loss Pacemaker DX:Pacemaker Peripheral vascular disease (CMS/HCC) DX:Peripheral vascular disease (HCC) Family History Medical History Relation Name Comments [...] ( season) 2024 Influenza Vaccine (#1) 2024 , 03/11/2014, 01/20/2013, Additional history exists DTaP,Tdap,and Td [...] age to complete this topic Care Teams Hotel Server Relationship Specialty Start Date End Date Landy Sutherland MD PCP - General 05/24/22
--- OUTSIDE RECORDS SUMMARY | 2024-08-03 12:49 | XMS_ITS | Patient Health Record ---
Author Organization [facility] Address [address] [place] [address] Care Team Providers Care Program Professional Name Role Phone Oscar Alicia MD Primary Care Provider Prashant Sibley Unavailable [phone] Allergies Allergen (clinical drug ingredient) Drug/Non Drug [...] W/U Status Risk Notes Problem Essential hypertension (07011095) Essential (primary) hypertension (I10) Active confirmed Problem Aortic valve disorder (5727551) Nonrheumatic aortic (valve) stenosis (I35.0) Active confirmed Problem Cerebrovascular disease (79669466) Cerebrovascular disease, unspecified (I67.9) Active confirmed Problem Obesity due to excess calories (102151701) Other obesity due to excess calories (E66.09) Active confirmed Problem Sick sinus syndrome (62809109) Sick sinus syndrome (I49.5) Active confirmed Problem Occlusion and stenosis of multiple and bilateral cerebral arteries (058017405) Occlusion and stenosis of bilateral carotid arteries (I65.23) Active confirmed Problem Carotid artery occlusion (064356075) Occlusion and stenosis of unspecified carotid artery (I65.29) Active confirmed Problem Cardiac pacemaker in situ (104954337) Presence of cardiac pacemaker (Z95.0) Active confirmed Problem Aortic valve disorder (0738397) Nonrheumatic aortic (valve) stenosis (I35.0) Active confirmed Problem Mixed hyperlipidemia (841232921) Mixed hyperlipidemia (E78.2) Active confirmed Problem Intermittent claudication of bilateral lower limbs co-occurrent and due to atherosclerosis (12291298433336570 ) Atherosclerosis of [place] arteries of extremities with intermittent claudication, bilateral legs (I70.213) Active confirmed Problem Shortness of breath (070871004) Shortness of breath (R06.02) Active confirmed Problem Peripheral circulatory disorder associated with diabetes mellitus (651783196) 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) Active confirmed Problem Peripheral vascular disease (282740977) Other specified peripheral vascular diseases (I73.89) Active confirmed Problem Right carotid artery stenosis (570202918906853) Occlusion and stenosis of right carotid artery (I65.21) Active confirmed Problem Left carotid artery occlusion (947118069002969) Occlusion and stenosis of left carotid artery (I65.22) Active confirmed Problem Low back pain (378138643) Low back pain (M54.5) Active confirmed Problem Dizziness and giddiness (200477245) Dizziness and giddiness (R42) Active confirmed Problem Counseling about tobacco use (673125028) Tobacco abuse counseling (Z71.6) Active confirmed Problem Tobacco use (654259710) Tobacco use (Z72.0) Active confirmed Problem Counseling about tobacco use (790621579) Tobacco abuse counseling (Z71.6) Active confirmed Plan [...] Insured Coverage Start Date Coverage End Date [facility] [id number] [facility] [address] [place] [address] [id number] Pallavi Mukherjee Self - patient is the [...]
== END 2024-08-03 11:10 | disposition home or self-care (01) ==
LOC: HO.HMCFM 10:41
PROVIDERS: PCP Nurse Practitioner Family; Visit Provider Nurse Practitioner Family
DX: I10 Essential (primary) hypertension (principal); F17.210 Nicotine dependence, cigarettes, uncomplicated; M54.2 Cervicalgia; G89.29 Other chronic pain

== ENCOUNTER → 2024-08-03 10:41 | Outpatient (BNVA) | payer MEDICARE, SELFPAY | PROVIDERS: PCP Nurse Practitioner Family; Visit Provider Nurse Practitioner Family | DX: I10 Essential (primary) hypertension (principal); M54.2 Cervicalgia; G89.29 Other chronic pain; F17.210 Nicotine dependence, cigarettes, uncomplicated; Z71.6 Tobacco abuse counseling | CPT/HCPCS: 96127; 99212 ==

== ENCOUNTER 2024-08-05 08:27 | Outpatient (REF) | payer MEDICARE, SELFPAY ==
--- NOTE | ~2024-08-05 | XR_ITS ---
CLINICAL HISTORY: M54.2 - Cervicalgia 4 views cervical spine Comparison: None Findings: Normal vertebral body alignment. No acute fractures or dislocation. No significant degenerative change. No prevertebral soft tissue swelling. Bilateral carotid arterial stents and ventral extensive surgical materials noted. IMPRESSION: No acute findings. This document has been electronically signed by: Robert Ramirez MD on 08/06/2024 08:46:20
--- OUTSIDE RECORDS SUMMARY | 2024-08-05 08:36 | XMS_ITS | Clinical Summary ---
Author Organization [facility] Address [address] [facility] [address] [place] [address] Phone Care Team Providers Care Brownell Operator Name Role Phone Jaylen Taylor CNP Primary Care Provider [phone] Allergies Active Allergy Reactions Criticality Noted Date [...] Visit [facility] [address] [place] [phone] Elia Winters MD Other acute kidney failure [...] Office [facility] [address] [place] [phone] Elia Winters MD [facility] [address] Health Maintenance Due Date Last [...] 10.1 8.7 - 10.7 mg/dL eGFR Non-Afr [facility] 33 Total Bilirubin 0.3 MG/DL ALT (SGPT) 12 U/L AST (SGOT) 12 U/L Alkaline Phosphatase 80 U/L Hemoglobin A1C 6.0 4.0 - 6.0 12/11/2021 [facility] Provider LAB BLOOD ORDERABLES Lianet l Result from Last 3 Months or Most Recently Relevant to Health Maintenance Insurance [facility] MEDIC[facility] Care Teams Brownell Operator Relationship Specialty Start Date End Date Jaylen Taylor CNP [address] [place] [address] PCP - General 04/04/23
--- OUTSIDE RECORDS SUMMARY | 2024-08-05 08:36 | XMS_ITS | Continuity of Care Document ---
Author Organization [facility] [address] [facility] [address] [place] [address] Phone [phone] Care Team Providers Care Automobile Body Repair Supervisor Name Role Phone Claudia York CNP Care Team Information Receive r [phone] Problems Active Problems Provider Date Osteoporosis Emanuel [...] Onset: 06/16/2023 Chronic kidney disease stage 3 Emnauel Cueva M.D. Onset: 06/16/2023 Social History Type [...] Indications Ordering Provider Date Vitamin D (Ergocalciferol)1.25mg (53986 Ut) Capsules 1 tab by mouth every week 8caps Emanuel Cueva M.D. 06/20/2023 Lisinopril2.5mg Tablets Take 1 Tablet Orally Every Evening Unknown Clopidogrel Niqjjuhpj86wt Tablets Take 1 Tablet By Mouth Every Day Des Sanchez MD Amlodipine Caoxetws15wa Tablets Take 1 Tablet By Mouth Every Day Unknown Pdorderrvz420dz Tablets Take 1 Tablet By Mouth 2 Times A Day For 30 Days Claudia York CNP Ferrous Pespqdv171(65Fe) mg Tablets Take 1 Tablet By Mouth 1 Time Each Day With Breakfast. Unknown Pramipexole Dihydrochloride0.125mg Tablets Take 2 By Mouth Daily Des Sanchez MD Qfoeblflbc048yo Capsules Take 1 Capsule By Mouth Three Times A Day Unknown Sertraline HLX663bn Tablets Take 1 Tablet By Mouth Twice A Day Des Sanchez MD Metformin JGS199gk Tablets Take 1 Tablet By Mouth Twice A Day Des Sanchez MD Atorvastatin Kwblisc00ht Tablets Take 1 Tablet By Mouth Every Day Des Sanchez MD Levothyroxine Rahxzu087kts Tablets Take 1 Tablet By Mouth Every Day Des Sanchez MD Vital Signs Date Vital Result Comment 06/16/2023 9:37am BP Systolic 110 mmHg BP Diastolic 70 mmHg Heart Rate 72 /min Height 64 inches 5'4 Weight 128.12 lb BMI (Body Mass Index) 22.0 kg/m2 Results Test Acquired Date Facility Test Result H/L Range N ote Basic Metabolic Panel 06/16/2023 [facility] Glucose 102 mg/dL High (70-99) BUN 24 mg/dL High (8-23) Creatinine 1.3 mg/dL High (0.5-1.0) Sodium 140 mmol/L (133-145) Potassium 5.2 mmol/L (3.6-5.2) Chloride 105 mmol/L (98-107) Bicarbonate 20 mmol/L Low (22-29) Anion Gap 15 (4-17) Calcium 10.4 mg/dL (8.6-10.5 ) Estimated GFR Creatinine 41 ML/MIN/1.7 3M2 1 25Oh Vitamin D 06/16/2023 [facility] 25Oh Vitamin D 14.9 NG/ML Low (20-50) Albumin 06/16/2023 [facility] Albumin 4.6 GM/DL (3.4-4.8) PTH, Intact 06/16/2023 [facility] PTH, Intact 102 pg/mL High (15-65) Phosphorus 06/16/2023 [facility] Phosphorus 3.6 mg/dL (2.5-4.5) 1 [...] E11.9 Type 2 diabetes mellitus* New Labs:* Grsvfir-Yt-Zzrsl, Ordered: 06/16/23 * Creat Clearance, Ordered: 06/16/23 * N-Telopeptide Cross Links, Urine, Ordered: 06/16/23 Functional Status Description No Information Available Mental Status Description No Information Available Referrals Description No Information Available
--- OUTSIDE RECORDS SUMMARY | 2024-08-05 08:36 | XMS_ITS | Clinical Summary ---
Author Organization [facility] ity Address [address] [place] [address] Care Team Providers Care Steno Pool Supervisor Name Role Phone Landy Sutherland MD Primary Care Provider [phone] Surgical History Surgery Date Site/Laterality Comments OTHER SURGICAL HISTORY PROCEDURE: [place] LAMNOTMY INCL W/DCMPRSN NRV ROOT 1 INTRSPC LUMBR; COMMENT: 3 back operations CAROTID ENDARTERECTOMY 2000 PROCEDURE: HISTORICAL CAROTID ENDART; COMMENT: right VAGINAL DELIVERY PROCEDURE: [place] VAGINAL DELIVERY ONLY; COMMENT: x2 ABDOMINAL SURGERY age 22 PROCEDURE: [place] UNLISTED PROCEDURE ABDOMEN PERITONEUM & OMENTUM; COMMENT: [...] with ophthalmic manifestations, not stated as uncontrolled(250.50) ([facility]); COMMENT: Bilateral mild nuclear sclerosis. Type II or unspecified type diabetes mellitus with renal manifestations, not stated as uncontrolled(250.40) (CMS/HCC) 08/07/2007 DX:Type II or unspecified ty pe diabetes mellitus with renal manifestations, not stated as uncontrolled(250.40) ([facility]); COMMENT: 07/10--Ogtt neg Intol Lisinopril CKD stage [...] - PCV) 09/04/2010 09/04/2009, 06/04/2002 RSV Immunization Adult Patients (1 - 1-dose 75+ series) 09/26/2019 Cholesterol [...] age to complete this topic Care Teams Steno Pool Supervisor Relationship Specialty Start Date End Date Landy Sutherland MD PCP - General 05/24/22
--- OUTSIDE RECORDS SUMMARY | 2024-08-05 08:36 | XMS_ITS | Encounter Summary ---
Author Organization [facility] Address [address] [facility] [address] [facility] [address] [place] [address] Phone Care Team Providers Care Regulatory Compliance Officer Name Role Phone Jaylen Taylor CNP Primary Care Provider [phone] Encounter Details Date Type Department Care Team (Late st Contact Info) Description 04/22/2022 Telephone [facility] [address] [facility] [address] [facility] [address] [place] [address] Ilir Roca MD Social History [...] thank you, order was faxed over to [facility] * Telephone Encounter - [...] Visit [facility] [address] [place] [phone] Elia Winters MD [address] [facility] [address] [place] [address] documented as of this encounter Visit Diagnoses Not on filedocumented in this encounter Care Teams Regulatory Compliance Officer Relationship Specialty Start Date End Date Jaylen Taylor CNP [address] [place] [address] PCP - General 04/04/23 documented as of this encounter
== END 2024-08-05 08:28 | disposition home or self-care (01) ==
LOC: HO.XRAY 08:27
PROVIDERS: PCP Nurse Practitioner Family; Visit Provider Nurse Practitioner Family
DX: M54.2 Cervicalgia (principal); G89.29 Other chronic pain
CPT/HCPCS: 72040

== ENCOUNTER → 2024-08-05 08:34 | Outpatient (BNV) | payer MEDICARE, SELFPAY | PROVIDERS: PCP Nurse Practitioner Family; Visit Provider Specialist | DX: M54.2 Cervicalgia (principal) | CPT/HCPCS: 72050 ==

== ENCOUNTER → 2024-08-06 23:59 | Outpatient (BNV) | payer MEDICARE, SELFPAY ==
--- NOTE | 2024-08-09 14:14 | A.OFFVIS_ITS ---
Intake Visit Reasons: Remote device check- Biotronik Allergies acetaminophen [From Percocet] Allergy (Intermediate, Verified 08/03/24 10:56) Itching oxycodone [From Percocet] Allergy (Intermediate, Verified 08/03/24 10:56) Itching Seasonal Allergies Allergy (Intermediate, Verified 08/03/24 10:56) Itchy Eyes ibuprofen [From Motrin] Allergy (Unknown, Verified 08/03/24 10:56) Swelling wheat Adverse Reaction (Unknown, Verified 08/03/24 10:56) Diarrhea lactose Adverse Reaction (Verified 08/03/24 10:56) Diarrhea PFSH Medical History Screening for lung cancer Colon cancer screening Normal physical examination, routine Viral upper respiratory illness Laboratory tests ordered as part of a complete physical exam (CPE) Cardiac pacemaker in situ Runny nose Smoking 1/2 pack a day or less SOB (shortness of breath) on exertion Smoking greater than 30 pack years Diarrhea Osteopenia Breast cancer screening Chronic diarrhea Skin tear of left upper arm without complication Aortic stenosis Restless leg syndrome No pertinent family history Hyperlipidemia Chronic back pain Osteoarthritis GERD (gastroesophageal reflux disease) Anxiety and depression Type 2 diabetes mellitus Hypertension CKD (chronic kidney disease) stage 3, GFR 30-59 ml/min Hypothyroidism Cataracts, bilateral COPD (chronic obstructive pulmonary disease) Deafness in right ear Stroke Surgical History History of esophagogastroduodenoscopy (EGD) H/O colonoscopy History of tonsillectomy History of appendectomy H/O: hysterectomy History of back surgery H/O thyroidectomy H/O endarterectomy S/P cardiac pacemaker procedure Family History Mother Bladder cancer Brother Bladder cancer Social History Household Members: Children Housing: House Do you presently have visiting nurse or other home services: No Patient Tobacco Use Status: Current everyday Tobacco user Tobacco use type: Cigarette Cigarette Packs Per Day: 0.5 Cigarettes Per Day: 8 Years Smoked: 70 e-Cigarette/Vaping Use: Never Used Substance Use Type: Marijuana service: No Current occupational status: retired Current occupational exposures/hazards: No Cognitive needs: No Hearing needs: No Vision needs: No Office Procedures Cardiac Device Check Cardiac Device Check Details: Remote pacemaker report generated 08/06/2024. Pacemaker function is adequate [id number] Cardiac Device Interrogation, pacemaker Procedure code (CPT) selection complete Assessment & Plan Assessment & Plan (1) Cardiac pacemaker in situ: Comment: Biotronik dual-chamber pacemaker in place, placed in 2015 Code(s): Z95.0 - Presence of cardiac pacemaker Category: Medical Plan: See above Medications: Discontinued bupropion HCl (smoking deter) Take 150 mg p.o. daily for 3 days. Then increase to 150 mg p.o. b.i.d. Discontinued Reason: Patient no longer taking 150 mg PO BID 60 tabs 3RF psyllium husk (Metamucil) mix into at least 8 oz of water or juice before administering. May increase to BID with persistent/worsening symptoms Discontinued Reason: Patient no longer taking 1 tbsp PO DAILY 660 grams 0RF folic acid Discontinued Reason: Patient no longer taking 0.4 mg PO DAILY 30 days 30 tabs 1RF nicotine (polacrilex) Discontinued Reason: Patient no longer taking 2 mg PO q1-2h x6wk, then q2- 4h x3wk, then q4-8h x3wk; Start: On cigarette quit day; Max: 24 pieces/24h; Info: use >9 pieces/day during initial 6wk; avoid food/drink 15min before and after use 120 ea 0RF Coding Level of Care Code Procedure Only Diagnoses Cardiac pacemaker in situ Z95.0 CPT Codes Cardiac Device Check - Cardiac Device 12: [id number] Cardiac Device Interrogation, pacemaker ([id number])
== END ==
PROVIDERS: PCP Nurse Practitioner Family; Visit Provider Internal Medicine Cardiovascular Disease
DX: Z45.018 Encounter for adjustment and management of other part of cardiac pacemaker (principal)
CPT/HCPCS: 93294

== ENCOUNTER 2024-08-10 12:43 | Outpatient (AMB) | payer MEDICARE, SELFPAY ==
--- NOTE | 2024-08-10 12:58 | MHC.PC.OV ---
Vital Signs 08/10/24 13:08 08/10/24 13:27 Height 5 ft 4 in Weight 125 lb 2 oz BMI 21.5 BP 160/70 H Blood Pressure Location Rt brachial Position Sitting Respiration 13 Pulse 71 76 Pulse Source Pulse Oximeter Auscultation Temp 98.3 F Temp Source Oral Pulse Oximetry (%) 95 Intake Visit Reasons: 1 wk HTN Intake Note: Pallavi presents in the office today for a 1 week follow up to hypertension. Sales Executive Insurance Required: No Allergies acetaminophen [From Percocet] Allergy (Intermediate, Verified 08/10/24 13:18) Itching oxycodone [From Percocet] Allergy (Intermediate, Verified 08/10/24 13:18) Itching Seasonal Allergies Allergy (Intermediate, Verified 08/10/24 13:18) Itchy Eyes ibuprofen [From Motrin] Allergy (Unknown, Verified 08/10/24 13:18) Swelling wheat Adverse Reaction (Unknown, Verified 08/10/24 13:18) Diarrhea lactose Adverse Reaction (Verified 08/10/24 13:18) Diarrhea Medication List - Last Reconciled 08/10/24 by Jaylen Taylor CNP albuterol sulfate 2.5 mg (3 mL) inhalation Q4-6H PRN aspirin (Adult Low Dose Aspirin) 81 mg PO DAILY atorvastatin 80 mg PO BEDTIME 30 days buspirone 7.5 mg PO BID cetirizine (Zyrtec) 10 mg PO DAILY 30 days clopidogrel 75 mg PO DAILY 30 days ezetimibe 10 mg PO DAILY famotidine 10 mg PO DAILY ferrous sulfate 325 mg PO BID 30 days furosemide 20 mg PO DAILY PRN gabapentin 600 mg PO BID 30 days levothyroxine 150 mcg PO DAILY 90 days mecobalamin (vitamin B12) 1,000 mcg PO DAILY metoprolol succinate ER 50 mg PO DAILY 30 days pantoprazole 40 mg PO BID pramipexole 0.25 mg (2 x 0.125 mg) PO BEDTIME 30 days sertraline 100 mg PO DAILY 90 days Tobacco use date assessed: 08/10/24 Fall risk assessment: 1 Fall in past year Last assessed Fall Risk: 08/10/24 Dental Screening Dental Screen Date: 08/10/24 Did you have a dental visit in the last 12 months?: No Did you have a dental problem in the last 6 months where you did not have access to dental care?: No Was dental information given to patient?: No HPI HPI Comments History of Present Illness Details 78-year-old female presents for hypertension follow-up. She admits to taking her medications as prescribed without adverse reactions. No acute symptoms at this time. [facility] Medical History Screening for lung cancer Colon cancer screening Normal physical examination, routine Viral upper respiratory illness Laboratory tests ordered as part of a complete physical exam (CPE) Cardiac pacemaker in situ Runny nose Smoking 1/2 pack a day or less SOB (shortness of breath) on exertion Smoking greater than 30 pack years Diarrhea Osteopenia Breast cancer screening Chronic diarrhea Skin tear of left upper arm without complication Aortic stenosis Restless leg syndrome No pertinent family history Hyperlipidemia Chronic back pain Osteoarthritis GERD (gastroesophageal reflux disease) Anxiety and depression Type 2 diabetes mellitus Hypertension CKD (chronic kidney disease) stage 3, GFR 30-59 ml/min Hypothyroidism Cataracts, bilateral COPD (chronic obstructive pulmonary disease) Deafness in right ear Stroke Surgical History History of esophagogastroduodenoscopy (EGD) H/O colonoscopy History of tonsillectomy History of appendectomy H/O: hysterectomy History of back surgery H/O thyroidectomy H/O endarterectomy S/P cardiac pacemaker procedure Family History Mother Bladder cancer Brother Bladder cancer Social History (Updated 08/10/24 @ 13:05 by Kimi Villa MA) Household Members: Children Housing: House Do you presently have visiting nurse or other home services: No Alcohol intake: never Patient Tobacco Use Status: Current everyday Tobacco user Tobacco use type: Cigarette Cigarette Packs Per Day: 0.5 Cigarettes Per Day: 8 Years Smoked: 70 e-Cigarette/Vaping Use: Never Used Second Hand Smoke Exposure: No Substance Use Type: Marijuana service: No Current occupational status: retired Current occupational exposures/hazards: No Cognitive needs: No Hearing needs: No Vision needs: No Questionnaire PHQ-9 Over the last 2 weeks, how often have you been bothered by any of the following problems? 1. Little interest or pleasure in doing things: several days 2. Feeling down, depressed, or hopeless: several days 3. Trouble falling or staying asleep, or sleeping too much: several days 4. Feeling tired or having little energy: nearly every day 5. Poor appetite or overeating: not at all 6. Feeling bad about yourself - or that you are a failure or have let yourself or your family down: not at all 7. Trouble concentrating on things, such as reading the newspaper or watching television: several days 8. Moving or speaking so slowly that other people could have noticed. Or the opposite - being so fidgety or restless that you have been moving around a lot more than usual: not at all 9. Thoughts that you would be better off or of hurting yourself in some way: not at all Total score: 7 Depression Screening Interpretation: Positive Depression Screening Done: Yes 07798 - PHQ-9 Billing: Patient declined-do not bill Source: Developed by Drs. Bonifacio Bethea, Danni Villa, Rico Wilcox and colleagues, with an educational saranya from [employer]. Thrive Questionnaire Date Thrive assessed: 07/30/24 I am a: Patient What is your living situation today?: I have a steady place to live Within the past 12 months, did the food you bought not last and you didn't have the money to get more?: Never true Within the past 12 months, did you worry whether your food would run out before you got money to buy more?: Never true Do you have trouble paying for medicines?: Yes Do you have trouble getting transportation to medical appointments?: No Do you have trouble paying your heating and electricity bill?: No Do you have trouble taking care of your child, family member or friend?: No Do you have trouble with day-to-day activities such as bathing, preparing meals, shopping, managing finances, etc.?: No Are you currently unemployed and looking for a job?: No Are you interested in more education?: No Please select the resources that you would like help with: None Currently or been in a relationship where the following occur: No concerns reported THRIVE Score: 0 AUDIT C Alcohol Use Questionnaire (AUDIT-C) 1. How often do you have a drink containing alcohol?: Never Total Score: 0 Score Reviewed/Action Taken: No MARCELA-7 AMB Questionnaire MARCELA-7 Date MARCELA - 7 assessed: 08/10/24 Feeling nervous, anxious, or on edge: 1 = Several days Not being able to stop or control worryin = Not at all Worrying too much about different things: 0 = Not at all Trouble relaxin = Nearly every day Being so restless that it is hard to sit still: 1 = Several days Becoming easily annoyed or irritable: 2 = More than half the days Feeling afraid as if something awful might happen: 0 = Not at all Total MARCELA-7 score (0-4 normal; 5-9 mild; 10-14 moderate; 15-21 severe): 7 Source: Developed by Drs. Bonifacio Bethea, Danni Villa, Rico Wilcox and colleagues, with an educational saranya from [employer]. MARCELA-7 Assessment Billing MARCELA-7 Assessment Tool: MARCELA-7 Assessment 35291 Review of Systems Const Details: Const Denies chills, Denies fatigue, Denies fever(s), Denies headache(s) and Denies weakness ENT Denies dizziness and Denies headache(s) Card Denies chest pain, Denies lightheadedness, Denies dyspnea and Denies other (Palpitations) Resp Denies cough, Denies dyspnea, Denies wheezing and Denies other ( shortness of breath) GI Denies abdominal pain, Denies melena, Denies hematochezia, Denies change in bowel habits, Denies dyspepsia and Denies nausea Denies hematuria and Denies dysuria Musc Denies abnormal gait, Denies myalgias, Denies arthralgias, Denies numbness and Denies tingling Skin/Breast Denies rash, Denies unusual bruising and Denies wounds Neuro Denies abnormal gait, Denies dizziness, Denies headache(s), Denies memory loss, Denies numbness, Denies Sensory deficit (Neuro), Denies tingling and Denies weakness Psych Denies anxiety, Denies depression, Denies memory loss Endo Denies cold intolerance, Denies fatigue, Denies heat intolerance, Denies polydipsia and Denies polyuria Aller/Immun Denies wheezing Physical exam (Primary Care) Vital Signs: Last Vital Signs Temp 98.3 F 08/10/24 13:08 Pulse 71 08/10/24 13:08 Resp 13 08/10/24 13:08 BP 142/78 H 08/10/24 13:08 Pulse Ox 95 08/10/24 13:08 BMI result Body Mass Index 21.5 Tobacco/Smoking Status: Tobacco use Status Tobacco use date assessed 08/10/24 08/10/24 13:01 Patient Tobacco Use Status Current everyday Tobacco 08/10/24 13:05 Tobacco use type Cigarette 08/10/24 13:05 e-Cigarette/Vaping Use Never Used 08/10/24 13:05 PHQ-9: PHQ-9 Score PHQ-9: Total score 7 08/10/24 13:15 Depression Screening Interpretation: Positive Thrive Assessment: Date of Thrive Assessment Date Thrive assessed 07/30/24 08/10/24 12:59 Currently or been in a relationship where the following occur: No concerns reported Const Other: General: no acute distress and well developed Nutritional Appearance: well nourished Orientation/consciousness: patient oriented x3 HENMT Head: Yes normocephalic and Yes atraumatic Eyes General: appearance normal, both eyes and all related structures Pupils: Equal, round and reactive pupils present EOM: EOMs intact bilaterally Resp Effort & Inspection: normal respiratory effort Auscultation: clear to auscultation bilaterally Cardio Rate: regular rate Rhythm: regular rhythm Heart sounds: S1 normal heart sound present, S2 normal heart sound present, no gallops, no murmurs and no rubs GI Palpation (GI): No Abdominal aortic bruit present, Soft to palpation, nontender, No hepatosplenomegaly present and No Rebound tenderness present Auscultation: normal bowel sounds General: Yes no CVA tenderness Back/Spine/Pelvis Back: no CVA tenderness Cervical Spine: cervical ROM normal and No Cervical spine tenderness Thoracic/Lumbar Spine: thoraco-lumbar ROM normal, No pain with thoraco-lumbar ROM, No thoracic spinal tenderness and No lumbar spinal tenderness Extrem General: Yes normal to inspection, No edema and No calf tenderness Skin General: warm and dry. Normal skin color. Normal skin turgor Neuro General: patient oriented x3, gait normal and no focal neuro deficit Cranial nerves: Yes Equal, round and reactive pupils present Cognition (Neuro): normal cognition Gait exam (Neuro): Normal gait present Sensory Exam: No Sensory deficit (Neuro) Psych Appearance: grossly normal Affect: normal affect Attitude: cooperative Thought process: Normal thought process present Coding Level of Care Code Est Pt Level 3 (03595) Diagnoses Hypotension I95.9 Additional Codes MARCELA-7 Assessment Billing - MARCELA-7 Assessment Tool: MARCELA-7 Assessment 41750 ([id number]) Assessment & Plan Assessment & Plan (1) Hypotension: Code(s): I95.9 - Hypotension, unspecified Category: Medical Plan: Resting blood pressure is 160/70, above goal of less than 130/80. Heart rate is 76. Lisinopril 10 mg daily ordered; advised to take as prescribed. Instructed on the risks, benefits, and potential adverse reactions of the medication. Continue to take metoprolol as prescribed. Low-sodium diet encouraged. Follow-up in 1 week or sooner with symptoms or concerns. Verbalized understanding and agreed with treatment plan. Plan Recent x-ray of cervical spine reviewed with the patient; unremarkable findings. Medications: New lisinopril 10 mg PO DAILY 30 days 30 tabs 3RF
[2024-08-10 13:08] VITALS: BP 160/70; PULSE 71; RESP 13; TEMP 36.8; O2SAT 95; BMI 21.5
[2024-08-10 13:27] VITALS: PULSE 76
--- OUTSIDE RECORDS SUMMARY | 2024-08-10 15:19 | XMS_ITS | Clinical Summary ---
Author Organization [facility] ity Address [address] [place] [address] Care Team Providers Care Braided Rug Maker Name Role Phone Landy Sutherland MD Primary Care Provider [phone] Surgical History Surgery Date Site/Laterality Comments OTHER SURGICAL HISTORY PROCEDURE: [place] LAMNOTMY INCL W/DCMPRSN NRV ROOT 1 INTRSPC LUMBR; COMMENT: 3 back operations CAROTID ENDARTERECTOMY 2000 PROCEDURE: HISTORICAL CAROTID ENDART; COMMENT: right VAGINAL DELIVERY PROCEDURE: [place] VAGINAL DELIVERY ONLY; COMMENT: x2 ABDOMINAL SURGERY age 22 PROCEDURE: [place] UNLISTED PROCEDURE ABDOMEN PERITONEUM & OMENTUM; COMMENT: [...] with ophthalmic manifestations, not stated as uncontrolled(250.50) ([facility]); COMMENT: Bilateral mild nuclear sclerosis. Type II or unspecified type diabetes mellitus with renal manifestations, not stated as uncontrolled(250.40) (CMS/HCC) 08/07/2007 DX:Type II or unspecified ty pe diabetes mellitus with renal manifestations, not stated as uncontrolled(250.40) ([facility]); COMMENT: 07/10--Ogtt neg Intol Lisinopril CKD [...] age to complete this topic Meningococcal B Vaccine Aged Out No l onger eligible based on patient's age to complete this topic RSV Immunization Patients Under 20 months Aged Out No longer eligible based on patient's age to complete this topic Varicella Vaccines Aged Out No longer eligible based on patient's age to complete this topic Care Teams Braided Rug Maker Relationship Specialty Start Date End Date Landy Sutherland MD PCP - General 05/24/22
--- OUTSIDE RECORDS SUMMARY | 2024-08-10 15:19 | XMS_ITS | Clinical Summary ---
Author Organization [facility] Address [address] [facility] [address] [place] [address] Phone Care Team Providers Care Sow Farm Technician Name Role Phone aJylen Taylor CNP Primary Care Provider Allergies Active Allergy Reactions Criticality Noted Date [...] Visit [facility] [address] [place] [phone] Elia Winters MD Other acute kidney failure [...] Office Visit [facility] [address] [place] [phone] Elia Winters MD [facility] [address] [address] Health Maintenance Due Date Last Done Comments Pneumococcal Vaccine: 65+ Years (3 of 3 - PCV) 09/04/2010 09/04/2009, 06/04/2002 Diabetes: Ophthalmology Exam 01/01/2022 Diabetes: Pedal Pulse Checked 01/01/2022 Diabetes: Sensory Foot Exam 01/01/2022 Diabetes: Visual Foot Exam 01/01/2022 Diabetes: Hemoglobin A1C 2022 06/28/2022, 08/0 01/2022 Influenza Vaccine (Season Ended) 2025 02/14/2022, 03/11/2014, 01/20/2013, Additional history exists Hepatitis B [...] 10.1 8.7 - 10.7 mg/dL eGFR Non-Afr South African 33 Total Bilirubin 0.3 MG/DL ALT (SGPT) 12 U/L AST (SGOT) 12 U/L Alkaline Phosphatase 80 U/L Hemoglobin A1C 6.0 4.0 - 6.0 12/11/2021 [facility] Provider LAB BLOOD ORDERABLES Lianet l Result from Last 3 Months or Most Recently Relevant to Health Maintenance Insurance [facility] MEDICARE [facility] MEDICARE Care Teams Sow Farm Technician Relationship Specialty Start Date End Date Jaylen Taylor CNP [address] [place] [address] PCP - General 04/04/23
--- OUTSIDE RECORDS SUMMARY | 2024-08-10 15:19 | XMS_ITS | Continuity of Care Document ---
Author Organization [facility] [address] [facility] [address] [place] [address] Phone [phone] Care Team Providers Care Leather Goods Maker Name Role Phone Claudia York CNP Care Team Information Receive r [phone] Problems Active Problems Provider Date Osteoporosis Emanuel [...] Indications Ordering Provider Date Vitamin D (Ergocalciferol)1.25mg (50080 Ut) Capsules 1 tab by mouth every week 8caps Emanuel Cueva M.D. 06/20/2023 Lisinopril2.5mg Tablets Take 1 Tablet Orally Every Evening Unknown Clopidogrel Lzkvfbzkx67qi Tablets Take 1 Tablet By Mouth Every Day Des Sanchez MD Amlodipine Tfnssebk08ck Tablets Take 1 Tablet By Mouth Every Day Unknown Qvemqqhiav983tf Tablets Take 1 Tablet By Mouth 2 Times A Day For 30 Days Claudia York CNP Ferrous Senftwr047(65Fe) mg Tablets Take 1 Tablet By Mouth 1 Time Each Day With Breakfast. Unknown Pramipexole Dihydrochloride0.125mg Tablets Take 2 By Mouth Daily Des Sanchez MD Kgqliiepii169sw Capsules Take 1 Capsule By Mouth Three Times A Day Unknown Sertraline YJJ450nh Tablets Take 1 Tablet By Mouth Twice A Day Des Sanchez MD Metformin KDV587zf Tablets Take 1 Tablet By Mouth Twice A Day Des Sanchez MD Atorvastatin Qnexpag07gr Tablets Take 1 Tablet By Mouth Every Day Des Sanchez MD Levothyroxine Abaste157lsz Tablets Take 1 Tablet By Mouth Every Day Des Sanchez MD Vital Signs Date Vital Result Comment 06/16/2023 9:37am BP Systolic 110 mmHg BP Diastolic 70 mmHg Heart Rate 72 /min Height 64 inches 5'4 Weight 128.12 lb BMI (Body Mass Index) 22.0 kg/m2 Results Test Acquired Date Facility Test Result H/L Range N ote Basic Metabolic Panel 06/16/2023 [facility] Glucose 102 mg/dL High (70-99) BUN 24 mg/dL High (8-23) Creatinine 1.3 mg/dL High (0.5-1.0) Sodium 140 mmol/L (133-145) Potassium 5.2 mmol/L (3.6-5.2) Chloride 105 mmol/L (98-107) Bicarbonate 20 mmol/L Low (22-29) Anion Gap 15 (4-17) Calcium 10.4 mg/dL (8.6-10.5 ) Estimated GFR Creatinine 41 ML/MIN/1.7 3M2 1 25Oh Vitamin D 06/16/2023 [facility] 25Oh Vitamin D 14.9 NG/ML Low (20-50) Albumin 06/16/2023 [facility] Albumin 4.6 GM/DL (3.4-4.8) PTH, Intact 06/16/2023 [facility] PTH, Intact 102 pg/mL High (15-65) Phosphorus 06/16/2023 [facility] Phosphorus 3.6 mg/dL (2.5-4.5) [...] Age-related oste oporosis without current pathological fracture Emanule Cueva M.D. 06/16/2023 E83.52 Hypercalcemia Emanuel escoto M.D. 06/16/2023 E11.9 Type 2 diabetes mellitus Vi Cueva M.D. Plan of Treatment 06/16/2023 - Emanuel Cueva M.D.* M81.0 Age-related osteoporosis without current pathological fracture * E83.52 Hypercalcemia * E11.9 Type 2 diabetes mellitus* New Labs:* Fesfffx-Ep-Tywyr, Ordered: 06/16/23 * Creat Clearance, Ordered: 06/16/23 * N-Telopeptide Cross Links, Urine, Ordered: 06/16/23 Functional Status Description No Information Available Mental Status Description No Information Available Referrals Description No Information Available
--- OUTSIDE RECORDS SUMMARY | 2024-08-10 15:19 | XMS_ITS | Encounter Summary ---
Author Organization [facility] Address [address] [facility] [facility] [address] [place] [address] Phone Care Team Providers Care Vat Skimmer Name Role Phone Jaylen Taylor CNP Primary Care Provider [phone] Encounter Details Date Type Department Care Team (Late st Contact Info) Description 04/22/2022 Telephone [facility] [address] [facility] [facility] [address] [place] [address] Ilir Roca MD Social History [...] thank you, order was faxed over to [facility] * Telephone Encounter - Carmen Chamorro - [...] Visit [facility] [address] [place] [phone] Elia Winters MD [address] [facility] [address] [place] [address] documented as of this encounter Visit Diagnoses Not on filedocumented in this encounter Care Teams Vat Skimmer Relationship Specialty Start Date End Date Jaylen Taylor CNP [address] [place] [address] PCP - General 04/04/23 documented as of this encounter
== END 2024-08-10 13:33 | disposition home or self-care (01) ==
LOC: HO.HMCFM 12:44
PROVIDERS: PCP Nurse Practitioner Family; Visit Provider Nurse Practitioner Family
DX: I95.9 Hypotension, unspecified (principal)

== ENCOUNTER → 2024-08-10 12:43 | Outpatient (BNVA) | payer MEDICARE, SELFPAY | PROVIDERS: PCP Nurse Practitioner Family; Visit Provider Nurse Practitioner Family | DX: I95.9 Hypotension, unspecified (principal) | CPT/HCPCS: 96127; 99212 ==

== ENCOUNTER → 2024-08-13 23:59 | Outpatient (BNV) | payer MEDICARE, SELFPAY | PROVIDERS: PCP Nurse Practitioner Family; Visit Provider Nurse Practitioner Family | DX: I50.9 Heart failure, unspecified (principal); E11.9 Type 2 diabetes mellitus without complications; E78.5 Hyperlipidemia, unspecified | CPT/HCPCS: G0179 ==

== ENCOUNTER 2024-08-31 10:05 | Outpatient (REF) | payer MEDICARE, SELFPAY ==
--- NOTE | ~2024-08-31 | CT_ITS ---
CLINICAL HISTORY: R91.1 - Solitary pulmonary nodule CT chest without contrast Comparison: CR/NM/SR - XR CHEST 1V - 11/18/23 22:55 EDT Findings: The heart is normal size. Calcification of the coronary vasculature. Transvenous cardiac leads are present. Thyroidectomy clips are present. No evidence of pneumonia or edema. Calcified nodules within the right lower and middle lobes are present. 2 mm subpleural nodule within the left lower lobe posteriorly ( image 63). The upper abdomen is unremarkable. The bones are intact. IMPRESSION: 1. Benign calcified right lung granulomata. 2. Small left lung nodule. Optional follow-up chest CT in 1 year could be performed for further assessment. 3. Coronary artery disease. This document has been electronically signed by: Benjie Howard MD on 09/01/2024 14:43:18
--- OUTSIDE RECORDS SUMMARY | 2024-08-31 11:28 | XMS_ITS | Clinical Summary ---
Author Organization [facility] it Address [address] [place] [address] Care Team Providers Care Internet Salesperson Name Role Phone Landy Sutherland MD Primary Care Provider [phone] Surgical History Surgery Date Site/Laterality Comments OTHER SURGICAL HISTORY PROCEDURE: [place] LAMNOTMY INCL W/DCMPRSN NRV ROOT 1 INTRSPC LUMBR; COMMENT: 3 back operations CAROTID ENDARTERECTOMY 2000 PROCEDURE: HISTORICAL CAROTID ENDART; COMMENT: right VAGINAL DELIVERY PROCEDURE: [place] VAGINAL DELIVERY ONLY; COMMENT: x2 ABDOMINAL SURGERY age 22 PROCEDURE: [place] UNLISTED PROCEDURE ABDOMEN PERITONEUM & OMENTUM; COMMENT: laparotomy with LSO for ruptured ectopic TONSILLECTOMY PROCEDURE: HISTORICAL TONSILLECTOMY Medical History Medical History Date Comments Esophageal reflux 03/01/2005 DX:Esophageal reflux Lumbago 03/01/2005 DX:Lumbago Thoracic [place], [place] [place] [facility] [place] 11/12/2004 DX:Thoracic aneurysm, ruptur ed ([facility]) Peripheral vascular disease, unspecified [place] [place] 11/09/2004 DX:Peripheral vascular disea se, unspecified ([facility]) Other dyspnea and respirator y abnormality 11/09/2004 DX:Other dyspnea and respira tory abnormality Sciatica 09/12/2004 DX:Sciatica Sinoatrial node dysfunction [place] [place] [facility] [place] 01/19/2004 DX:Sinoatrial node dysfuncti on ([facility]) Cervicalgia 01/04/2004 DX:Cervicalgia Palpitations 01/04/2004 DX:Palpitations Syncope [...] with ophthalmic manifestations, not stated as uncontrolled(250.50) ([facility] V24, [facility] V28) 07/15/2012 DX:Type II or unspecified ty pe diabetes mellitus with ophthalmic manifestations, not stated as uncontrolled(250.50) ([facility]); COMMENT: Bilateral mild nuclear sclerosis. Type II or unspecified type diabetes mellitus with renal manifestations, not stated as uncontrolled(250.40) ([facility] V24, [facility] [place]) 08/07/2007 DX:Type II or unspecified t ype diabetes mellitus with renal manifestations, not stated as uncontrolled(250.40) ([facility]); COMMENT: 07/10--Ogtt neg Intol Lisinopril [...] DX:Weight loss Pacemaker DX:Pacemaker Peripheral vascular disease [place] [place] DX:Peripheral vascular disea se ([facility]) Family History Medical History Relation [...] COVID-19 Vaccine ( season) 2024 Influenza Vaccine (Season Ended) 2025 02/14/2022, 03/11/2014, 01/20/2013, Additional history exists DTaP,Tdap,and Td [...] age to complete this topic Care Teams Internet Salesperson Relationship Specialty Start Date End Date Landy Sutherland MD PCP - General 05/24/22
--- OUTSIDE RECORDS SUMMARY | 2024-08-31 11:28 | XMS_ITS | Continuity of Care Document ---
Author Organization [facility] [address] [facility] [address] [place] [address] Phone [phone] Care Team Providers Care General Road Production Manager Name Role Phone Claudia York CNP Care Team Information Receive r [phone] Problems Active Problems Provider Date Osteoporosis Emanuel [...] Indications Ordering Provider Date Vitamin D (Ergocalciferol)1.25mg (38016 Ut) Capsules 1 tab by mouth every week 8caps Emanuel Cueva M.D. 06/20/2023 Lisinopril2.5mg Tablets Take 1 Tablet Orally Every Evening Unknown Clopidogrel Zpamjlyqa70jm Tablets Take 1 Tablet By Mouth Every Day Des Sanchez MD Amlodipine Kmssziza18gq Tablets Take 1 Tablet By Mouth Every Day Unknown Offgpukfrk551wr Tablets Take 1 Tablet By Mouth 2 Times A Day For 30 Days Claudia York CNP Ferrous Bnaeolo526(65Fe) mg Tablets Take 1 Tablet By Mouth 1 Time Each Day With Breakfast. Unknown Pramipexole Dihydrochloride0.125mg Tablets Take 2 By Mouth Daily Des Sanchez MD Uavorypvdj289pc Capsules Take 1 Capsule By Mouth Three Times A Day Unknown Sertraline FKU216ci Tablets Take 1 Tablet By Mouth Twice A Day Des Sanchez MD Metformin FNZ180fu Tablets Take 1 Tablet By Mouth Twice A Day Des Sanchez MD Atorvastatin Rfkvelh04km Tablets Take 1 Tablet By Mouth Every Day Des Sanchez MD Levothyroxine Yukzao372pag Tablets Take 1 Tablet By Mouth Every Day Des Sanchez MD Vital Signs Date Vital Result Comment 06/16/2023 9:37am BP Systolic 110 mmHg BP Diastolic 70 mmHg Heart Rate 72 /min Height 64 inches 5'4 Weight 128.12 lb BMI (Body Mass Index) 22.0 kg/m2 Results Test Acquired Date Facility Test Result H/L Range N ote Basic Metabolic Panel 06/16/2023 [facility] Glucose 102 mg/dL High (70-99) BUN 24 mg/dL High (8-23) Creatinine 1.3 mg/dL High (0.5-1.0) Sodium 140 mmol/L (133-145) Potassium 5.2 mmol/L (3.6-5.2) Chloride 105 mmol/L (98-107) Bicarbonate 20 mmol/L Low (22-29) Anion Gap 15 (4-17) Calcium 10.4 mg/dL (8.6-10.5 ) Estimated GFR Creatinine 41 ML/MIN/1.7 3M2 1 25Oh Vitamin D 06/16/2023 [facility] 25Oh Vitamin D 14.9 NG/ML Low (20-50) Albumin 06/16/2023 [facility] Albumin 4.6 GM/DL (3.4-4.8) PTH, Intact 06/16/2023 [facility] PTH, Intact 102 pg/mL High (15-65) Phosphorus 06/16/2023 [facility] Phosphorus 3.6 mg/dL (2.5-4.5) 1 [...] Age-related oste oporosis without current pathological fracture Emaneul Cueva M.D. 06/16/2023 E83.52 Hypercalcemia Emaneul escoto M.D. 06/16/2023 E11.9 Type 2 diabetes mellitus Vi Cueva M.D. Plan of Treatment 06/16/2023 - Emanuel Cueva M.D.* M81.0 Age-related osteoporosis without current pathological fracture * E83.52 Hypercalcemia * E11.9 Type 2 diabetes mellitus* New Labs:* Dfulqtg-Kl-Lguij, Ordered: 06/16/23 * Creat Clearance, Ordered: 06/16/23 * N-Telopeptide Cross Links, Urine, Ordered: 06/16/23 Functional Status Description No Information Available Mental Status Description No Information Available Referrals Description No Information Available
--- OUTSIDE RECORDS SUMMARY | 2024-08-31 11:28 | XMS_ITS | Clinical Summary ---
Author Organization [facility] Address [address] [facility] [address] [place] [address] Phone Care Team Providers Care Paint Brush Maker Name Role Phone Jaylen Taylor CNP Primary Care Provider [phone] Allergies Active Allergy Reactions Criticality Noted Date [...] Associates [facility] [address] [place] [phone] Elia Winters MD Other acute kidney failure (HCC) (Primary Dx); Hypertension; Type 2 diabetes mellitus with diabetic chronic kidney disease (HCC); Other proteinuria; Heart failure with normal ejection fraction (HCC); Stage 3 chronic kidney disease, not otherwise specified (HCC) from Last 3 Months Immunizations Immunization Administration Dates Next Due H1N1 Inj Preservative [...] Office Visit [facility] [address] [place] [phone] Elia Winters MD [facility] [address] [address] Health Maintenance Due Date Last Done Comments Pneumococcal Vaccine: 50+ Years (3 of 3 - PCV) 09/04/2010 09/04/2009, 06/04/2002 Diabetes: Ophthalmology Exam 01/01/2022 Diabetes: Pedal Pulse Checked 01/01/2022 Diabetes: Sensory Foot Exam 01/01/2022 Diabetes: Visual Foot Exam 01/01/2022 Diabetes: Hemoglobin A1C 2022 06/28/2022, 08/01/2022 Influenza Vaccine (Season Ended) 2025 02/14/2022, 03/11/2014, 01/20/2013, Additional history exists Pneumococcal Vaccine: Peds (0 to 5 Years) and At-Risk Patients (6 to 49 Years) Discontinued 09/04/2009, 06/04/2002 Hepatitis B Vaccine Aged Out No longe [...] 10.1 8.7 - 10.7 mg/dL eGFR Non-Afr Kitt[place] 33 Total Bilirubin 0.3 MG/DL ALT (SGPT) 12 U/L AST (SGOT) 12 U/L Alkaline Phosphatase 80 U/L Hemoglobin A1C 6.0 4.0 - 6.0 12/11/2021 Historical Provider LAB BLOOD ORDERABLES Lianet l Result from Last 3 Months or Most Recently Relevant to Health Maintenance Insurance [facility] Medicare [facility] Medicare Care Teams Paint Brush Maker Relationship Specialty Start Date End Date Jaylen Taylor CNP [address] [place] [address] PCP - General 04/04/23
--- OUTSIDE RECORDS SUMMARY | 2024-08-31 11:28 | XMS_ITS | Encounter Summary ---
Author Organization [facility] Address [address] [facility] [address] [facility] [address] [place] [address] Phone Care Team Providers Care Castings Trimmer Name Role Phone Jaylen Taylor CNP Primary Care Provider [phone] Encounter Details Date Type Department Care Team (Late st Contact Info) Description 04/22/2022 Telephone [facility] [address] [facility] [address] [facility] [address] [place] [address] Ilir Roca MD Social History [...] thank you, [place] [facility] [place] Telephone Encounter - Carmen Chamorro - [...] Visit [facility] [address] [place] [phone] Elia Winters MD [address] [facility] [address] [place] [address] documented as of this encounter Visit Diagnoses Not on filedocumented in this encounter Care Teams Castings Trimmer Relationship Specialty Start Date End Date Jaylen Taylor CNP [address] [place] [address] PCP - General 04/04/23 documented as of this encounter
--- OUTSIDE RECORDS SUMMARY | 2024-08-31 11:28 | XMS_ITS | Patient Health Record ---
Author Organization [facility] Address [address] [place] [address] Care Team Providers Care Freezer Laboratory Technician Name Role Phone Oscar Alicia MD Primary Care Provider Prashant Sibley Unavailable [phone] Allergies Allergen (clinical drug ingredient) Drug/Non Drug [...] W/U Status Risk Notes Problem Essential hypertension (99451052) Essential (primary) hypertension (I10) Active confirmed Problem Aortic valve disorder (3820661) Nonrheumatic aortic (valve) stenosis (I35.0) Active confirmed Problem Cerebrovascular disease (07730245) Cerebrovascular disease, unspecified (I67.9) Active confirmed Problem Obesity due to excess calories (191063743) Other obesity due to excess calories (E66.09) Active confirmed Problem Sick sinus syndrome (48977839) Sick sinus syndrome (I49.5) Active confirmed Problem Occlusion and stenosis of multiple and bilateral cerebral arteries (951897604) Occlusion and stenosis of bilateral carotid arteries (I65.23) Active confirmed Problem Carotid artery occlusion (551596593) Occlusion and stenosis of unspecified carotid artery (I65.29) Active confirmed Problem Cardiac pacemaker in situ (992300205) Presence of cardiac pacemaker (Z95.0) Active confirmed Problem Aortic valve disorder (1949447) Nonrheumatic aortic (valve) stenosis (I35.0) Active confirmed Problem Mixed hyperlipidemia (419954417) Mixed hyperlipidemia (E78.2) Active confirmed Problem Intermittent claudication of bilateral lower limbs co-occurrent and due to atherosclerosis (94135860806969287 ) Atherosclerosis of [place] arteries of extremities with intermittent claudication, bilateral legs (I70.213) Active confirmed Problem Shortness of breath (932163906) Shortness of breath (R06.02) Active confirmed Problem Peripheral circulatory disorder associated with diabetes mellitus (306158454) 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) Active confirmed Problem Peripheral vascular disease (808640501) Other specified peripheral vascular diseases (I73.89) Active confirmed Problem Right carotid artery stenosis (567660161441575) Occlusion and stenosis of right carotid artery (I65.21) Active confirmed Problem Left carotid artery occlusion (200578388421244) Occlusion and stenosis of left carotid artery (I65.22) Active confirmed Problem Low back pain (610730783) Low back pain (M54.5) Active confirmed Problem Dizziness and giddiness (712780752) Dizziness and giddiness (R42) Active confirmed Problem Counseling about tobacco use (744136330) Tobacco abuse counseling (Z71.6) Active confirmed Problem Tobacco use (602073428) Tobacco use (Z72.0) Active confirmed Problem Counseling about tobacco use (332568519) Tobacco abuse counseling (Z71.6) Active confirmed Plan [...] Insured Coverage Start Date Coverage End Date [facility] [address] [facility] [address] [place] [address] [id number] Pallavi Mukherjee Self - patient is the [...]
== END 2024-08-31 10:06 | disposition home or self-care (01) ==
LOC: HO.CT 10:05
PROVIDERS: PCP Nurse Practitioner Family; Visit Provider Nurse Practitioner Family
DX: R91.1 Solitary pulmonary nodule (principal)
CPT/HCPCS: 71250

== ENCOUNTER → 2024-08-31 10:07 | Outpatient (BNV) | payer MEDICARE, SELFPAY | PROVIDERS: PCP Nurse Practitioner Family; Visit Provider Radiology Diagnostic Radiology | DX: J84.10 Pulmonary fibrosis, unspecified (principal); R91.1 Solitary pulmonary nodule; I25.10 Atherosclerotic heart disease of native coronary artery without angina pectoris | CPT/HCPCS: 71250 ==

== ENCOUNTER 2024-09-01 10:40 | Outpatient (AMB) | payer MEDICARE, SELFPAY ==
[2024-09-01 10:51] VITALS: BP 122/64; PULSE 78; O2SAT 100; BMI 20.6
--- NOTE | 2024-09-01 10:51 | A.OFFVIS_ITS ---
Vital Signs 09/01/24 10:51 Height 5 ft 4 in Weight 120 lb BMI 20.6 BP 122/64 Blood Pressure Location Rt brachial Position Sitting Pulse 78 Pulse Source Pulse Oximeter Pulse Oximetry (%) 100 Oxygen Delivery Method Room Air Intake Visit Reasons: COPD Scratch Finisher Required: No Web Marketing Assistant: Web Marketing Assistant offered & declined Accompanied by: Self / Same As Patient Allergies acetaminophen [From Percocet] Allergy (Intermediate, Verified 09/01/24 10:56) Itching oxycodone [From Percocet] Allergy (Intermediate, Verified 09/01/24 10:56) Itching Seasonal Allergies Allergy (Intermediate, Verified 09/01/24 10:56) Itchy Eyes ibuprofen [From Motrin] Allergy (Unknown, Verified 09/01/24 10:56) Swelling wheat Adverse Reaction (Unknown, Verified 09/01/24 10:56) Diarrhea lactose Adverse Reaction (Verified 09/01/24 10:56) Diarrhea Medication List - Last Reconciled 09/01/24 by Alondra Arevalo LPN albuterol sulfate 2.5 mg (3 mL) inhalation Q4-6H PRN aspirin (Adult Low Dose Aspirin) 81 mg PO DAILY atorvastatin 80 mg PO BEDTIME 30 days buspirone 7.5 mg PO BID cetirizine (Zyrtec) 10 mg PO DAILY 30 days clopidogrel 75 mg PO DAILY 30 days ezetimibe 10 mg PO DAILY famotidine 10 mg PO DAILY ferrous sulfate 325 mg PO BID 30 days furosemide 20 mg PO DAILY PRN gabapentin 600 mg PO BID 30 days levothyroxine 150 mcg PO DAILY 90 days lisinopril 10 mg PO DAILY 30 days mecobalamin (vitamin B12) 1,000 mcg PO DAILY metoprolol succinate ER 50 mg PO DAILY 30 days pantoprazole 40 mg PO BID pramipexole 0.25 mg (2 x 0.125 mg) PO BEDTIME 30 days sertraline 100 mg PO DAILY 90 days HPI HPI COPD: Details: Pallavi is a pleasant 78-year-old female, current smoker, with 70pyh with underlying COPD, hypertension, aortic stenosis, diastolic dysfunction on lasix 2 0mg, hyperlipidemia, diabetes mellitus, chronic kidney disease stage 3, peripheral vascular disease, and tachybradycardia status post pacemaker placement. She was referred for pulmonary evaluation by PCP and cardiology for ongoing dyspnea. She reports moderate control with Breztri however continues with dyspnea with exertion that has progressively worsened over time. She had trialed albuterol with minimal effect. She also continues with bronchitic symptoms, productive cough, with yellow sputum, with no change on doxycycline. At the last visit, she was sent for sleep study which she has yet to perform, PFT was also scheduled however patient unaware of appt. Today she presents to review chest CT report. Prior CT revealed 1.5 cm subpleural right middle lobe nodule on chest CT from 03/28. Unfortunately she continues to smoke 1/2 ppd, not ready to quit at this time. Previously has trialed Wellbutrin, hypnosis and NRT with no effect. Of note, patient with history of anemia and will be evaluated by hematology in the near future. [facility] Medical History Screening for lung cancer Colon cancer screening Normal physical examination, routine Viral upper respiratory illness Laboratory tests ordered as part of a complete physical exam (CPE) Cardiac pacemaker in situ Runny nose Smoking 1/2 pack a day or less SOB (shortness of breath) on exertion Smoking greater than 30 pack years Diarrhea Osteopenia Breast cancer screening Chronic diarrhea Skin tear of left upper arm without complication Aortic stenosis Restless leg syndrome No pertinent family history Hyperlipidemia Chronic back pain Osteoarthritis GERD (gastroesophageal reflux disease) Anxiety and depression Type 2 diabetes mellitus Hypertension CKD (chronic kidney disease) stage 3, GFR 30-59 ml/min Hypothyroidism Cataracts, bilateral COPD (chronic obstructive pulmonary disease) Deafness in right ear Stroke Surgical History History of esophagogastroduodenoscopy (EGD) H/O colonoscopy History of tonsillectomy History of appendectomy H/O: hysterectomy History of back surgery H/O thyroidectomy H/O endarterectomy S/P cardiac pacemaker procedure Family History Mother Bladder cancer Brother Bladder cancer Social History Household Members: Children Housing: House Do you presently have visiting nurse or other home services: No Alcohol intake: never Patient Tobacco Use Status: Current everyday Tobacco user Tobacco use type: Cigarette Cigarette Packs Per Day: 0.5 Cigarettes Per Day: 8 Years Smoked: 70 e-Cigarette/Vaping Use: Never Used Second Hand Smoke Exposure: No Substance Use Type: Marijuana service: No Current occupational status: retired Current occupational exposures/hazards: No Cognitive needs: No Hearing needs: No Vision needs: No Review of Systems Const Denies chills, Denies excessive sweating, Denies fever(s), Denies headache(s) and Denies night sweats Eyes Denies dry eyes, Denies irritation and Denies itchy eyes ENT Reports Normal hearing present, Denies headache(s), Denies nasal congestion, Denies nasal discharge, Denies post nasal drip and Denies sore throat Card Denies chest pain, Denies chest pain at rest, Denies chest pain with activity, Denies claudication, Denies leg edema, Reports dyspnea on exertion and Denies paroxysmal nocturnal dyspnea Resp Reports change in phlegm color, Reports chest congestion, Reports cough, Denies hemoptysis, Denies excessive phlegm production, Denies pain on inspiration, Denies pain with cough, Reports dyspnea on exertion and Denies stridor Musc Denies myalgias Neuro Reports Normal hearing present and Denies headache(s) Endo Denies excessive sweating Arnold/Lymph Denies lymphadenopathy Aller/Immun Denies itchy eyes and Denies seasonal rhinorrhea Physical Exam Vital Signs: Last Vital Signs Pulse 78 09/01/24 10:51 BP 122/64 09/01/24 10:51 Pulse Ox 100 09/01/24 10:51 Oxygen Delivery Method Room Air 09/01/24 10:51 BMI result Body Mass Index 20.6 Const General: cooperative, healthy appearing, comfortable, no acute distress and alert Nutritional Appearance: thin Orientation/consciousness: patient oriented x3 Limitations: no limitations HEENT Head: Yes normal to inspection, Yes normocephalic and Yes atraumatic Ears: hearing grossly normal bilaterally and external ears normal Eyes General: appearance normal, both eyes and all related structures Eyelids: Yes eyelids normal Sclerae: sclerae normal EOM: EOMs intact bilaterally Neck Neck: Yes normal visual inspection and Yes no lymphadenopathy Lymphatic: no lymphadenopathy noted Chest Chest palpation & inspection: normal inspection of the chest Resp Effort & Inspection: normal respiratory effort, able to speak in complete sentences, no audible wheezes, no cough, no stridor, not tachypneic, no tripod positioning and no use of accessory muscles Auscultation: diminished lung sounds Cardio Jugular venous distension: no JVD Rate: regular rate Rhythm: regular rhythm Skin Other: warm, dry General skin exam: no rashes or lesions noted Neuro General: patient oriented x3 Cranial nerves: Yes Normal hearing present Cognition (Neuro): normal cognition Gait exam (Neuro): Normal gait present Extrem General: Yes normal to inspection, Yes capillary refill normal, Yes no clubbing, cyanosis or edema and Yes no pedal edema Psych Appearance: grossly normal and well kempt Speech and movement: Normal speech and movement present and Clear speech present Affect: normal affect Attitude: cooperative Thought process: Normal thought process present Thought content: Normal thought content present Insight: Good insight present (Psych) Judgement: Good judgement present (Psych) Results Reviewed Results Reviewed: [address] [address] [address] Scan Report Signed Patient: Pallavi Mukherjee MR#: [id number] : 1945 Acct:[id number] Age/Sex: 78 / F ADM Date: 08/31/24 Loc: HO.CT Attending Dr: Alice Haley NP Ordering Physician: Alice Haley NP Date of Service: 08/31/24 Procedure(s): CT chest wo IV con Accession Number(s): [id number] cc: Alice Haley TWISTER OPERATOR; Jaylen Taylor [facility]~ Report Number: [id number]: Total DLP = 85.00 mGy-cm CLINICAL HISTORY: R91.1 - Solitary pulmonary nodule CT chest without contrast Comparison: CR/PA/SR - XR CHEST 1V - 11/18/23 22:55 EDT Findings: The heart is normal size. Calcification of the coronary vasculature. Transvenous cardiac leads are present. Thyroidectomy clips are present. No evidence of pneumonia or edema. Calcified nodules within the right lower and middle lobes are present. 2 mm subpleural nodule within the left lower lobe posteriorly ( image 63). The upper abdomen is unremarkable. The bones are intact. IMPRESSION: 1. Benign calcified right lung granulomata. 2. Small left lung nodule. Optional follow-up chest CT in 1 year could be performed for further assessment. 3. Coronary artery disease. This document has been electronically signed by: Benjie Howard MD on 09/01/2024 14:43:18 Dictated By: Benjie Howard MD Signed By: <Electronically signed by Benjie Howard MD in OV> 09/01/24 1444 DD/ 42 TD/TT: 09/01/241442 Window Maker: Assessment & Plan Assessment & Plan (1) COPD (chronic obstructive pulmonary disease): Code(s): J44.9 - Chronic obstructive pulmonary disease, unspecified Category: Medical (2) Cough: Code(s): R05.9 - Cough, unspecified Category: Medical (3) Nicotine dependence, cigarettes, uncomplicated: Code(s): F17.210 - Nicotine dependence, cigarettes, uncomplicated Category: Medical (4) Pulmonary nodule 1 cm or greater in diameter: Code(s): R91.1 - Solitary pulmonary nodule Category: Medical Plan Pallavi continues to report suboptimal control of respiratory symptoms discussed switching Breztri to Trelegy however will hold off and change nebulized albuterol to DuoNeb. Patient does have a h/o anemia and will undergo further evaluation through hematology. Will treat bronchitic symptoms with Vantin. She is aware to call if symptoms do not improve. Smoking cessation reviewed, patient not ready to quit at this time. Prior chest CT 03/28 revealed 1.5 mm subpleural nodule, repeat CT revealed stable nodule. Will repeat in one year to assess stability, if no changes then no need for further evaluation. All questions were answered and patient is in agreement of plan. Will follow up in 8-10 weeks or sooner if needed. Orders: Orders CT chest wo IV con 11 Months R91.1 - Solitary pulmonary nodule Medications: New ipratropium-albuterol 0.5 mg-3 mg(2.5 mg base)/3 mL 3 mL inhalation Q6H PRN 180 mL 0RF wheezing cefpodoxime must administer with a meal/food 200 mg PO BID 20 tabs 0RF Coding Level of Care Code Est Pt Level 4 (36579) Diagnoses COPD (chronic obstructive pulmonary disease) J44.9 Cough R05.9 Nicotine dependence, cigarettes, uncomplicated F17.210 Pulmonary nodule 1 cm or greater in diameter R91.1
--- OUTSIDE RECORDS SUMMARY | 2024-09-01 12:03 | XMS_ITS | Continuity of Care Document ---
Author Organization [facility] [address] [place] [address] Phone [phone] Care Team Providers Care Marketing Communications Coordinator Name Role Phone Claudia York CNP Care Team Information Receive r [phone] Problems Active Problems Provider Date Osteoporosis Emanuel [...] Indications Ordering Provider Date Vitamin D (Ergocalciferol)1.25mg (41713 Ut) Capsules 1 tab by mouth every week 8caps Emanuel Cueva M.D. 06/20/2023 Lisinopril2.5mg Tablets Take 1 Tablet Orally Every Evening Unknown Clopidogrel Pxwsktqay79cy Tablets Take 1 Tablet By Mouth Every Day Des Sanchez MD Amlodipine Xtjhxnbs07cp Tablets Take 1 Tablet By Mouth Every Day Unknown Ketrlgyjtg333zr Tablets Take 1 Tablet By Mouth 2 Times A Day For 30 Days Claudia York CNP Ferrous Wdvtdvl653(65Fe) mg Tablets Take 1 Tablet By Mouth 1 Time Each Day With Breakfast. Unknown Pramipexole Dihydrochloride0.125mg Tablets Take 2 By Mouth Daily Des Sanchez MD Zyfvwnxuie665eb Capsules Take 1 Capsule By Mouth Three Times A Day Unknown Sertraline NBZ627vj Tablets Take 1 Tablet By Mouth Twice A Day Des Sanchez MD Metformin YQU816lo Tablets Take 1 Tablet By Mouth Twice A Day Des Sanchez MD Atorvastatin Ywglwhx13es Tablets Take 1 Tablet By Mouth Every Day Des Sanchez MD Levothyroxine Wlopax547wtm Tablets Take 1 Tablet By Mouth Every [...] ML/MIN/1.7 3M2 1 25Oh Vitamin D 06/16/2023 [facility] 25Oh Vitamin D 14.9 NG/ML Low (20-50) Albumin 06/16/2023 [facility] Albumin 4.6 GM/DL (3.4-4.8) PTH, Intact 06/16/2023 [facility] PTH, Intact 102 pg/mL High (15-65) Phosphorus 06/16/2023 [facility] Phosphorus 3.6 mg/dL (2.5-4.5) 1 [...] E11.9 Type 2 diabetes mellitus* New Labs:* Cfmczgs-Dc-Jvqae, Ordered: 06/16/23 * Creat Clearance, Ordered: 06/16/23 * N-Telopeptide Cross Links, Urine, Ordered: 06/16/23 Functional Status Description No Information Available Mental Status Description No Information Available Referrals Description No Information Available
--- OUTSIDE RECORDS SUMMARY | 2024-09-01 12:03 | XMS_ITS | Encounter Summary ---
Author Organization [facility] Address [address] [facility] [address] [place] [address] Phone Care Team Providers Care Manufacturing Plant Technician Name Role Phone Jaylen Taylor CNP Primary Care Provider Encounter Details Date Type Department Care Team (Late st Contact Info) Description 04/22/2022 Telephone [facility] [address] [facility] [address] [place] [address] Ilir Roca MD Social History [...] thank you, order was faxed over to [facility] * Telephone Encounter - [...] [facility] [address] [place] [id number] Elia Winters MD [address] [facility] [address] [place] [address] documented as of this encounter Visit Diagnoses Not on filedocumented in this encounter Care Teams Manufacturing Plant Technician Relationship Specialty Start Date End Date Jaylen Taylor CNP [address] [place] [address] PCP - General 04/04/23 documented as of this encounter
--- OUTSIDE RECORDS SUMMARY | 2024-09-01 12:03 | XMS_ITS | Clinical Summary ---
Author Organization [facility] it Address [address] [place] [address] Care Team Providers Care Apron Trimmer Name Role Phone Landy Sutherland MD Primary Care Provider [phone] Surgical History Surgery Date Site/Laterality Comments OTHER SURGICAL HISTORY PROCEDURE: GA LAMNOTMY INCL W/DCMPRSN NRV ROOT 1 INTRSPC LUMBR; COMMENT: 3 back operations CAROTID ENDARTERECTOMY 2000 PROCEDURE: HISTORICAL CAROTID ENDART; COMMENT: right VAGINAL DELIVERY PROCEDURE: GA VAGINAL DELIVERY ONLY; COMMENT: x2 ABDOMINAL SURGERY age 22 PROCEDURE: GA UNLISTED PROCEDURE ABDOMEN PERITONEUM & OMENTUM; COMMENT: laparotomy with LSO for ruptured ectopic TONSILLECTOMY PROCEDURE: HISTORICAL TONSILLECTOMY Medical History Medical History Date Comments Esophageal reflux 03/01/2005 DX:Esophageal reflux Lumbago 03/01/2005 DX:Lumbago Thoracic aneurysm, ruptured ([facility] V24, [facility] V28) 11/12/2004 DX:Thoracic aneurysm, ruptur ed ([facility]) Peripheral vascular disease, unspecified ([facility] V24) 11/09/2004 DX:Peripheral vascular disea se, unspecified ([facility]) Other dyspnea and respirator y abnormality 11/09/2004 DX:Other dyspnea and respira tory abnormality Sciatica 09/12/2004 DX:Sciatica Sinoatrial node dysfunction ([facility] V24, [facility] V28) 01/19/2004 DX:Sinoatrial node dysfuncti on ([facility]) Cervicalgia 01/04/2004 DX:Cervicalgia Palpitations 01/04/2004 DX:Palpitations Syncope [...] with ophthalmic manifestations, not stated as uncontrolled(250.50) ([facility] V24, [facility] V28) 07/15/2012 DX:Type II or unspecified ty pe diabetes mellitus with ophthalmic manifestations, not stated as uncontrolled(250.50) ([facility]); COMMENT: Bilateral mild nuclear sclerosis. Type II or unspecified type diabetes mellitus with renal manifestations, not stated as uncontrolled(250.40) ([facility] V24, [facility] V28) 08/07/2007 DX:Type II or unspecified t ype diabetes mellitus with renal manifestations, not stated as uncontrolled(250.40) ([facility]); COMMENT: 07/10--Ogtt neg Intol Lisinopril CKD [...] DX:Weight loss Pacemaker DX:Pacemaker Peripheral vascular disease ([facility] V24) DX:Peripheral vascular disea se ([facility]) Family History Medical History Relation Name Comments [...] age to complete this topic Care Teams Apron Trimmer Relationship Specialty Start Date End Date Landy Sutherland MD PCP - General 05/24/22
--- OUTSIDE RECORDS SUMMARY | 2024-09-01 12:03 | XMS_ITS | Patient Health Record ---
Author Organization [facility] Address [address] [place] [address] Care Team Providers Care City Magistrate Name Role Phone Oscar Alicia MD Primary Care Provider Prashant Sibley Unavailable [phone] Allergies Allergen (clinical drug ingredient) Drug/Non Drug [...] W/U Status Risk Notes Problem Essential hypertension (13114749) Essential (primary) hypertension (I10) Active confirmed Problem Aortic valve disorder (9076084) Nonrheumatic aortic (valve) stenosis (I35.0) Active confirmed Problem Cerebrovascular disease (86089300) Cerebrovascular disease, unspecified (I67.9) Active confirmed Problem Obesity due to excess calories (322996285) Other obesity due to excess calories (E66.09) Active confirmed Problem Sick sinus syndrome (18508989) Sick sinus syndrome (I49.5) Active confirmed Problem Occlusion and stenosis of multiple and bilateral cerebral arteries (431613765) Occlusion and stenosis of bilateral carotid arteries (I65.23) Active confirmed Problem Carotid artery occlusion (582367117) Occlusion and stenosis of unspecified carotid artery (I65.29) Active confirmed Problem Cardiac pacemaker in situ (533924142) Presence of cardiac pacemaker (Z95.0) Active confirmed Problem Aortic valve disorder (0023336) Nonrheumatic aortic (valve) stenosis (I35.0) Active confirmed Problem Mixed hyperlipidemia (563916906) Mixed hyperlipidemia (E78.2) Active confirmed Problem Intermittent claudication of bilateral lower limbs co-occurrent and due to atherosclerosis (62557028863620002 ) Atherosclerosis of [place] arteries of extremities with intermittent claudication, bilateral legs (I70.213) Active confirmed Problem Shortness of breath (256412227) Shortness of breath (R06.02) Active confirmed Problem Peripheral circulatory disorder associated with diabetes mellitus (692019243) 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) Active confirmed Problem Peripheral vascular disease (411538239) Other specified peripheral vascular diseases (I73.89) Active confirmed Problem Right carotid artery stenosis (513519767719531) Occlusion and stenosis of right carotid artery (I65.21) Active confirmed Problem Left carotid artery occlusion (701856941272073) Occlusion and stenosis of left carotid artery (I65.22) Active confirmed Problem Low back pain (754605892) Low back pain (M54.5) Active confirmed Problem Dizziness and giddiness (064528385) Dizziness and giddiness (R42) Active confirmed Problem Counseling about tobacco use (967412871) Tobacco abuse counseling (Z71.6) Active confirmed Problem Tobacco use (534771254) Tobacco use (Z72.0) Active confirmed Problem Counseling about tobacco use (615311739) Tobacco abuse counseling (Z71.6) Active confirmed Plan [...] Insured Coverage Start Date Coverage End Date [facility] [id number] [place] [address] [id number] Pallavi Mukherjee Self - patient is the [...]
--- OUTSIDE RECORDS SUMMARY | 2024-09-01 12:03 | XMS_ITS | Clinical Summary ---
Author Organization [facility] Address [address] [place] [address] Phone Care Team Providers Care Pomology Teacher Name Role Phone Jaylen Taylor CNP Primary Care Provider [phone] Allergies Active Allergy Reactions Criticality Noted Date [...] [facility] [address] [place] [phone] Elia Winters MD Other acute kidney failure [...] Office Visit [facility] [address] [place] [phone] Elia Winters MD [facility] [address] [address] Health Maintenance Due Date Last [...] 10.1 8.7 - 10.7 mg/dL eGFR Non-Afr Niuean 33 Total Bilirubin 0.3 MG/DL ALT (SGPT) 12 U/L AST (SGOT) 12 U/L Alkaline Phosphatase 80 U/L Hemoglobin A1C 6.0 4.0 - 6.0 12/11/2021 Historical Provider LAB BLOOD ORDERABLES Lianet l Result from Last 3 Months or Most Recently Relevant to Health Maintenance Insurance [facility] Medicare [facility] Medicare Care Teams Pomology Teacher Relationship Specialty Start Date End Date Jaylen Taylor CNP [address] [place] [address] PCP - General 04/04/23
== END 2024-09-01 11:31 | disposition home or self-care (01) ==
LOC: HO.HPSW 10:41
PROVIDERS: PCP Nurse Practitioner Family; Visit Provider Nurse Practitioner Family
DX: J44.9 Chronic obstructive pulmonary disease, unspecified (principal); R05.9 Cough, unspecified; F17.210 Nicotine dependence, cigarettes, uncomplicated; R91.1 Solitary pulmonary nodule
CPT/HCPCS: 99214

== ENCOUNTER → 2024-09-01 10:40 | Outpatient (BNVA) | payer MEDICARE, SELFPAY | PROVIDERS: PCP Nurse Practitioner Family; Visit Provider Nurse Practitioner Family | DX: J44.9 Chronic obstructive pulmonary disease, unspecified (principal); R05.9 Cough, unspecified; R91.1 Solitary pulmonary nodule; F17.210 Nicotine dependence, cigarettes, uncomplicated | CPT/HCPCS: 99212 ==

== ENCOUNTER → 2024-09-01 10:42 | Outpatient (BNV) | payer MEDICARE, SELFPAY | PROVIDERS: PCP Nurse Practitioner Family; Visit Provider Internal Medicine | DX: R06.83 Snoring (principal) | CPT/HCPCS: 95806 ==

== ENCOUNTER 2024-09-03 10:39 | Outpatient (AMB) | payer MEDICARE, SELFPAY ==
--- NOTE | 2024-09-03 10:48 | A.OFFPC_ITS ---
Vital Signs 09/03/24 10:53 09/03/24 11:11 Height 5 ft 4 in Weight 121 lb BMI 20.8 BP 162/72 H 134/62 Blood Pressure Location Rt brachial Lt brachial Position Sitting Sitting Respiration 16 Pulse 79 Pulse Source Pulse Oximeter Temp 97.5 F Temp Source Oral Pulse Oximetry (%) 97 Oxygen Delivery Method Room Air Intake Visit Reasons: HTN rescheduled from 08/20 - see comments Intake Note: patient here for follow up on HTN. All Round Butcher Required: No Is last menstrual period known: No Post menopausal: No Patient : No Allergies acetaminophen [From Percocet] Allergy (Intermediate, Verified 09/03/24 11:07) Itching oxycodone [From Percocet] Allergy (Intermediate, Verified 09/03/24 11:07) Itching Seasonal Allergies Allergy (Intermediate, Verified 09/03/24 11:07) Itchy Eyes ibuprofen [From Motrin] Allergy (Unknown, Verified 09/03/24 11:07) Swelling wheat Adverse Reaction (Unknown, Verified 09/03/24 11:07) Diarrhea lactose Adverse Reaction (Verified 09/03/24 11:07) Diarrhea Medication List - Last Reconciled 09/03/24 by Jaylen Taylor CNP albuterol sulfate 2.5 mg (3 mL) inhalation Q4-6H PRN aspirin (Adult Low Dose Aspirin) 81 mg PO DAILY atorvastatin 80 mg PO BEDTIME buspirone 7.5 mg PO BID cefpodoxime 200 mg PO BID cetirizine (Zyrtec) 10 mg PO DAILY 30 days clopidogrel 75 mg PO DAILY 30 days ezetimibe 10 mg PO DAILY famotidine 10 mg PO DAILY ferrous sulfate 325 mg PO BID 30 days furosemide 20 mg PO DAILY PRN gabapentin 600 mg PO BID 30 days ipratropium-albuterol 0.5 mg-3 mg(2.5 mg base)/3 mL 3 mL inhalation Q6H PRN levothyroxine 150 mcg PO DAILY 90 days lisinopril 10 mg PO DAILY 30 days mecobalamin (vitamin B12) 1,000 mcg PO DAILY metoprolol succinate ER 50 mg PO DAILY 30 days pantoprazole 40 mg PO BID pramipexole 0.25 mg (2 x 0.125 mg) PO BEDTIME 30 days sertraline 100 mg PO DAILY 90 days Tobacco use date assessed: 09/03/24 Fall risk assessment: No Falls in past year Last assessed Fall Risk: 09/03/24 Dental Screening Dental Screen Date: 09/03/24 Did you have a dental visit in the last 12 months?: No Did you have a dental problem in the last 6 months where you did not have access to dental care?: No Was dental information given to patient?: No (already gave pt the list) HPI HPI Comments History of Present Illness Details 78-year-old female presents for hyperten marcella follow-up. She admits to taking her medications as prescribed without adverse reactions. She offers no complaints and denies acute symptoms at this time. REPLACED BY [facility] Medical History Screening for lung cancer Colon cancer screening Normal physical examination, routine Viral upper respiratory illness Laboratory tests ordered as part of a complete physical exam (CPE) Cardiac pacemaker in situ Runny nose Smoking 1/2 pack a day or less SOB (shortness of breath) on exertion Smoking greater than 30 pack years Diarrhea Osteopenia Breast cancer screening Chronic diarrhea Skin tear of left upper arm without complication Aortic stenosis Restless leg syndrome No pertinent family history Hyperlipidemia Chronic back pain Osteoarthritis GERD (gastroesophageal reflux disease) Anxiety and depression Type 2 diabetes mellitus Hypertension CKD (chronic kidney disease) stage 3, GFR 30-59 ml/min Hypothyroidism Cataracts, bilateral COPD (chronic obstructive pulmonary disease) Deafness in right ear Stroke Surgical History History of esophagogastroduodenoscopy (EGD) H/O colonoscopy History of tonsillectomy History of appendectomy H/O: hysterectomy History of back surgery H/O thyroidectomy H/O endarterectomy S/P cardiac pacemaker procedure Family History Mother Bladder cancer Brother Bladder cancer Social History Household Members: Children Housing: House Do you presently have visiting nurse or other home services: No Alcohol intake: never Patient Tobacco Use Status: Current everyday Tobacco user Tobacco use type: Cigarette Cigarette Packs Per Day: 0.5 Cigarettes Per Day: 8 Years Smoked: 70 e-Cigarette/Vaping Use: Never Used Second Hand Smoke Exposure: No Substance Use Type: Marijuana service: No Current occupational status: retired Current occupational exposures/hazards: No Cognitive needs: No Hearing needs: No Vision needs: No Questionnaire Thrive Questionnaire Date Thrive assessed: 07/30/24 I am a: Patient What is your living situation today?: I have a steady place to live Within the past 12 months, did the food you bought not last and you didn't have the money to get more?: Never true Within the past 12 months, did you worry whether your food would run out before you got money to buy more?: Never true Do you have trouble paying for medicines?: Yes Do you have trouble getting transportation to medical appointments?: No Do you have trouble paying your heating and electricity bill?: No Do you have trouble taking care of your child, family member or friend?: No Do you have trouble with day-to-day activities such as bathing, preparing meals, shopping, managing finances, etc.?: No Are you currently unemployed and looking for a job?: No Are you interested in more education?: No Please select the resources that you would like help with: None Currently or been in a relationship where the following occur: No concerns reported THRIVE Score: 0 MARCELA-7 AMB Questionnaire MARCELA-7 Date MARCELA - 7 assessed: 08/10/24 Source: Developed by Drs. Bonifacio Bethea, Danni Villa, Rico Wilcox and colleagues, with an educational saranya from [email or web address]. Review of Systems Const Details: Const Denies chills, Denies fatigue, Denies fever(s), Denies headache(s) and Denies weakness ENT Denies dizziness and Denies headache(s) Card Denies chest pain, Denies lightheadedness, Denies dyspnea and Denies other (Palpitations) Resp Denies cough, Denies dyspnea, Denies wheezing and Denies other ( shortness of breath) GI Denies abdominal pain, Denies melena, Denies hematochezia, Denies change in bowel habits, Denies dyspepsia and Denies nausea Denies hematuria and Denies dysuria Musc Denies abnormal gait, Denies myalgias, Denies arthralgias, Denies numbness and Denies tingling Skin/Breast Denies rash, Denies unusual bruising and Denies wounds Neuro Denies abnormal gait, Denies dizziness, Denies headache(s), Denies memory loss, Denies numbness, Denies Sensory deficit (Neuro), Denies tingling and Denies weakness Psych Denies anxiety, Denies depression, Denies memory loss Endo Denies cold intolerance, Denies fatigue, Denies heat intolerance, Denies polydipsia and Denies polyuria Aller/Immun Denies wheezing Physical exam (Primary Care) Vital Signs: Last Vital Signs Temp 97.5 F 09/03/24 10:53 Pulse 79 09/03/24 10:53 Resp 16 09/03/24 10:53 BP 162/72 H 09/03/24 10:53 Pulse Ox 97 09/03/24 10:53 Oxygen Delivery Method Room Air 09/03/24 10:53 BMI result Body Mass Index 20.8 Tobacco/Smoking Status: Tobacco use Status Tobacco use date assessed 09/03/24 09/03/24 10:57 Patient Tobacco Use Status Current everyday Tobacco 09/03/24 10:48 Tobacco use type Cigarette 09/03/24 10:48 e-Cigarette/Vaping Use Never Used 09/03/24 10:48 Thrive Assessment: Date of Thrive Assessment Date Thrive assessed 07/30/24 09/03/24 10:48 Currently or been in a relationship where the following occur: No concerns reported Const Other: General: no acute distress and well developed Nutritional Appearance: well nourished Orientation/consciousness: patient oriented x3 HENMT Head: Yes normocephalic and Yes atraumatic Eyes General: appearance normal, both eyes and all related structures Pupils: Equal, round and reactive pupils present EOM: EOMs intact bilaterally Resp Effort & Inspection: normal respiratory effort Auscultation: clear to auscultation bilaterally Cardio Rate: regular rate Rhythm: regular rhythm Heart sounds: S1 normal heart sound present, S2 normal heart sound present, no gallops, positive murmurs and no rubs GI Palpation (GI): No Abdominal aortic bruit present, Soft to palpation, nontender, No hepatosplenomegaly present and No Rebound tenderness present Auscultation: normal bowel sounds General: Yes no CVA tenderness Back/Spine/Pelvis Back: no CVA tenderness Cervical Spine: cervical ROM normal and No Cervical spine tenderness Thoracic/Lumbar Spine: thoraco-lumbar ROM normal, No pain with thoraco-lumbar ROM, No thoracic spinal tenderness and No lumbar spinal tenderness Extrem General: Yes normal to inspection, No edema and No calf tenderness Skin General: warm and dry. Normal skin color. Normal skin turgor Neuro General: patient oriented x3, gait normal and no focal neuro deficit Cranial nerves: Yes Equal, round and reactive pupils present Cognition (Neuro): normal cognition Gait exam (Neuro): Normal gait present Sensory Exam: No Sensory deficit (Neuro) Psych Appearance: grossly normal Affect: normal affect Attitude: cooperative Thought process: Normal thought process present Coding Level of Care Code Est Pt Level 3 (73760) Diagnoses Primary hypertension I10 Hypertension type: primary hypertension Hypothyroidism, unspecified type E03.9 Hypothyroidism type: unspecified Assessment & Plan Assessment & Plan (1) Hypertension: Code(s): I10 - Essential (primary) hypertension Category: Medical Qualifiers: Hypertension type: primary hypertension Qualified Code(s): I10 - Essen tial (primary) hypertension Plan: Resting blood pressure is 134/62, slightly above goal of less than 130/80. Continue current treatment regimen. Follow-up in 2 months or sooner with symptoms or concerns. Verbalized understanding and agreed with treatment plan. (2) Hypothyroidism: Code(s): E03.9 - Hypothyroidism, unspecified Category: Medical Qualifiers: Hypothyroidism type: unspecified Qualified Code(s): E03.9 - Hypothyroidism, unspecified Plan: Her TSH was last checked in April 2024 and normal. Continue current treatment regimen. Will recheck TSH/T4. Orders: Orders TSH reflex Free T4 Today E03.9 - Hypothyroidism, unspecified
[2024-09-03 10:53] VITALS: BP 162/72; PULSE 79; RESP 16; TEMP 36.4; O2SAT 97; BMI 20.8
[2024-09-03 11:11] VITALS: BP 134/62
--- OUTSIDE RECORDS SUMMARY | 2024-09-03 11:46 | XMS_ITS | Patient Health Record ---
Author Organization [facility] Address [address] [place] [address] Care Team Providers Care Truck Headlight Assembler Name Role Phone Oscar Alicia MD Primary Care Provider Prashant Sibley Unavailable [phone] Allergies Allergen (clinical drug ingredient) Drug/Non Drug [...] W/U Status Risk Notes Problem Essential hypertension (49185152) Essential (primary) hypertension (I10) Active confirmed Problem Aortic valve disorder (8659952) Nonrheumatic aortic (valve) stenosis (I35.0) Active confirmed Problem Cerebrovascular disease (72797291) Cerebrovascular disease, unspecified (I67.9) Active confirmed Problem Obesity due to excess calories (620423548) Other obesity due to excess calories (E66.09) Active confirmed Problem Sick sinus syndrome (93334648) Sick sinus syndrome (I49.5) Active confirmed Problem Occlusion and stenosis of multiple and bilateral cerebral arteries (804415909) Occlusion and stenosis of bilateral carotid arteries (I65.23) Active confirmed Problem Carotid artery occlusion (287842074) Occlusion and stenosis of unspecified carotid artery (I65.29) Active confirmed Problem Cardiac pacemaker in situ (392650101) Presence of cardiac pacemaker (Z95.0) Active confirmed Problem Aortic valve disorder (0494480) Nonrheumatic aortic (valve) stenosis (I35.0) Active confirmed Problem Mixed hyperlipidemia (435725083) Mixed hyperlipidemia (E78.2) Active confirmed Problem Intermittent claudication of bilateral lower limbs co-occurrent and due to atherosclerosis (60621755791184292 ) Atherosclerosis of [place] arteries of extremities with intermittent claudication, bilateral legs (I70.213) Active confirmed Problem Shortness of breath (132179406) Shortness of breath (R06.02) Active confirmed Problem Peripheral circulatory disorder associated with diabetes mellitus (706628508) 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) Active confirmed Problem Peripheral vascular disease (539982632) Other specified peripheral vascular diseases (I73.89) Active confirmed Problem Right carotid artery stenosis (221392371851790) Occlusion and stenosis of right carotid artery (I65.21) Active confirmed Problem Left carotid artery occlusion (599561628720392) Occlusion and stenosis of left carotid artery (I65.22) Active confirmed Problem Low back pain (628616184) Low back pain (M54.5) Active confirmed Problem Dizziness and giddiness (281369877) Dizziness and giddiness (R42) Active confirmed Problem Counseling about tobacco use (746888496) Tobacco abuse counseling (Z71.6) Active confirmed Problem Tobacco use (458429584) Tobacco use (Z72.0) Active confirmed Problem Counseling about tobacco use (822691771) Tobacco abuse counseling (Z71.6) Active confirmed Plan [...] Insured Coverage Start Date Coverage End Date [facility] [address] [place] [address] [id number] Pallavi Mukherjee Self - patient is the [...]
--- OUTSIDE RECORDS SUMMARY | 2024-09-03 11:46 | XMS_ITS | Encounter Summary ---
Author Organization [facility] Address [address] [facility] [address] [place] [address] Phone Care Team Providers Care Associate Technician Name Role Phone Jaylen Taylor CNP Primary Care Provider [phone] Encounter Details Date Type Department Care Team (Late st Contact Info) Description 04/22/2022 Telephone [facility] [address] [facility] [address] [place] [address] Ilir Roca MD Social History [...] thank you, order was faxed over to [facility] * Telephone Encounter - Carmen [...] Visit [facility] [address] [place] [id number] Elia Winters MD [address] [facility] [address] [place] [address] documented as of this encounter Visit Diagnoses Not on filedocumented in this encounter Care Teams Associate Technician Relationship Specialty Start Date End Date Jaylen Taylor CNP [address] [place] [address] PCP - General 04/04/23 documented as of this encounter
--- OUTSIDE RECORDS SUMMARY | 2024-09-03 11:46 | XMS_ITS | Continuity of Care Document ---
Author Organization [facility] [address] [place] [address] Phone [phone] Care Team Providers Care Rouge Sifter Name Role Phone Claudia York CNP Care Team Information Receive r [phone] Problems Active Problems Provider Date Osteoporosis Emanuel Cueva M.D. Onset: 0 06/16/2023 Hyperlipidemia Emanuel Cueva M.D. Onset: 0 06/16/2023 Gastroesophageal reflux disease Emanuel pugh M.D. Onset: 06/16/2023 Type 2 diabetes mellitus Emanuel Cueva M.D. Onset: 06/16/2023 Essential hypertension Emanuel Cueva M.D. O nset: 06/16/2023 Hypothyroidism Emanuel Cueva M.D. Onset: 0 06/16/2023 Chronic obstructive lung disease Emanule bravo M.D. Onset: 06/16/2023 Chronic kidney disease [...] Indications Ordering Provider Date Vitamin D (Ergocalciferol)1.25mg (67076 Ut) Capsules 1 tab by mouth every week 8caps Emanuel Cueva M.D. 06/20/2023 Lisinopril2.5mg Tablets Take 1 Tablet Orally Every Evening Unknown Clopidogrel Dojqpsnzh37pe Tablets Take 1 Tablet By Mouth Every Day Des Sanchez MD Amlodipine Lihdhrvv78nv Tablets Take 1 Tablet By Mouth Every Day Unknown Vwmlzghnsb920jw Tablets Take 1 Tablet By Mouth 2 Times A Day For 30 Days Claudia York CNP Ferrous Ozrlymx224(65Fe) mg Tablets Take 1 Tablet By Mouth 1 Time Each Day With Breakfast. Unknown Pramipexole Dihydrochloride0.125mg Tablets Take 2 By Mouth Daily Des Sanchez MD Hkttpyyiyf846vh Capsules Take 1 Capsule By Mouth Three Times A Day Unknown Sertraline XSL743yt Tablets Take 1 Tablet By Mouth Twice A Day Des Sanchez MD Metformin POS404rb Tablets Take 1 Tablet By Mouth Twice A Day Des Sanchez MD Atorvastatin Wdspnbw95go Tablets Take 1 Tablet By Mouth Every Day Des Sanchez MD Levothyroxine Orgnmf692bny Tablets Take 1 Tablet By Mouth Every Day Des Sanchez MD Vital Signs Date Vital Result Comment 06/16/2023 9:37am BP Systolic 110 mmHg BP Diastolic 70 mmHg Heart Rate 72 /min Height 64 inches 5'4 Weight 128.12 lb BMI (Body Mass Index) 22.0 kg/m2 Results Test Acquired Date Facility Test Result H/L Range N ote Basic Metabolic Panel 06/16/2023 [facility] Glucose 102 mg/dL High (70-99) BUN 24 mg/dL High (8-23) Creatinine 1.3 mg/dL High (0.5-1.0) Sodium 140 mmol/L (133-145) Potassium 5.2 mmol/L (3.6-5.2) Chloride 105 mmol/L (98-107) Bicarbonate 20 mmol/L Low (22-29) Anion Gap 15 (4-17) Calcium 10.4 mg/dL (8.6-10.5 ) Estimated GFR Creatinine 41 ML/MIN/1.7 3M2 1 25Oh Vitamin D 06/16/2023 [facility] 25Oh Vitamin D 14.9 NG/ML Low (20-50) Albumin 06/16/2023 [facility] Albumin 4.6 GM/DL (3.4-4.8) PTH, Intact 06/16/2023 [facility] PTH, Intact 102 pg/mL High (15-65) Phosphorus 06/16/2023 [facility] Phosphorus 3.6 mg/dL (2.5-4.5) [...] E11.9 Type 2 diabetes mellitus* New Labs:* Iybdynq-Kk-Ipqra, Ordered: 06/16/23 * Creat Clearance, Ordered: 06/16/23 * N-Telopeptide Cross Links, Urine, Ordered: 06/16/23 Functional Status Description No Information Available Mental Status Description No Information Available Referrals Description No Information Available
--- OUTSIDE RECORDS SUMMARY | 2024-09-03 11:46 | XMS_ITS | Clinical Summary ---
Author Organization [facility] it Address [address] [place] [address] Care Team Providers Care Epic Professional Name Role Phone Landy Sutherland MD Primary Care Provider [phone] Surgical History Surgery Date Site/Laterality Comments OTHER SURGICAL HISTORY PROCEDURE: MI LAMNOTMY INCL W/DCMPRSN NRV ROOT 1 INTRSPC LUMBR; COMMENT: 3 back operations CAROTID ENDARTERECTOMY 2000 PROCEDURE: HISTORICAL CAROTID ENDART; COMMENT: right VAGINAL DELIVERY PROCEDURE: MI VAGINAL DELIVERY ONLY; COMMENT: x2 ABDOMINAL SURGERY age 22 PROCEDURE: MI UNLISTED PROCEDURE ABDOMEN PERITONEUM & OMENTUM; COMMENT: laparotomy with LSO for ruptured ectopic TONSILLECTOMY PROCEDURE: HISTORICAL TONSILLECTOMY Medical History Medical History Date Comments Esophageal reflux 03/01/2005 DX:Esophageal reflux Lumbago 03/01/2005 DX:Lumbago Thoracic aneurysm, ruptured ([facility] V24, [facility] V28) 11/12/2004 DX:Thoracic aneurysm, ruptur ed ([facility]) Peripheral vascular disease, unspecified ([facility] V24) 11/09/2004 DX:Peripheral vascular disea se, unspecified ([facility]) Other dyspnea and respirator y abnormality 11/09/2004 DX:Other dyspnea and respira tory abnormality Sciatica 09/12/2004 DX:Sciatica Sinoatrial node dysfunction ([facility] V24, [facility] V28) 01/19/2004 DX:Sinoatrial node dysfuncti on ([facility]) Cervicalgia 01/04/2004 DX:Cervicalgia Palpitations 01/04/2004 [...] with ophthalmic manifestations, not stated as uncontrolled(250.50) ([facility] V24, [facility] V28) 07/15/2012 DX:Type II or unspecified ty pe diabetes mellitus with ophthalmic manifestations, not stated as uncontrolled(250.50) ([facility]); COMMENT: Bilateral mild nuclear sclerosis. Type II or unspecified type diabetes mellitus with renal manifestations, not stated as uncontrolled(250.40) ([facility] V24, [facility] V28) 08/07/2007 DX:Type II or unspecified t ype diabetes mellitus with renal manifestations, not stated as uncontrolled(250.40) ([facility]); COMMENT: 07/10--Ogtt neg Intol Lisinopril [...] DX:Weight loss Pacemaker DX:Pacemaker Peripheral vascular disease ([facility] V24) DX:Peripheral vascular disea se ([facility]) Family History Medical History Relation [...] age to complete this topic Care Teams Epic Professional Relationship Specialty Start Date End Date Landy Sutherland MD PCP - General 05/24/22
--- OUTSIDE RECORDS SUMMARY | 2024-09-03 11:46 | XMS_ITS | Clinical Summary ---
Author Organization [facility] Address [address] [facility] [address] [place] [address] Phone Care Team Providers Care Driver Merchandiser Name Role Phone Jaylen Taylor CNP Primary Care Provider [phone] Allergies Active Allergy Reactions Criticality Noted Date [...] Date Resolved Date Abscess 11/22/2021 12/28/2021 Immunizations Immunization Administration Dates Next Due H1N1 Inj Preservative Free 05/30/2009 Influenza, Unspecified 02/14/2022,2013,01/20/2013,01/16/2012,10/07/2010,02/15/2010,02/23/2008,03/19/2007,02/26/20 06,03/01/2005 Pneumococcal Polysaccharide 09/04/2009, 3 Tdap 11/22/2021,09/21/2008 [...] Office [facility] [address] [place] [address] Elia Winters MD [address] [address] Health Maintenance Due Date Last Done Comments Pneumococcal Vaccine: 50+ Years (3 of 3 - PCV) 09/04/2010 09/04/2009, 06/04/2002 Diabetes: Ophthalmology Exam 01/01/2022 Diabetes: Pedal Pulse Checked 01/01/2022 Diabetes: Sensory Foot Exam 01/01/2022 Diabetes: Visual Foot Exam 01/01/2022 Diabetes: Hemoglobin A1C 2022 06/28/2022, 0801/2022 Influenza Vaccine (Season Ended) 2025 02/14/2022, 03/11/2014, [...] 10.1 8.7 - 10.7 mg/dL eGFR Non-Afr Brazilian 33 Total Bilirubin 0.3 MG/DL ALT (SGPT) 12 U/L AST (SGOT) 12 U/L Alkaline Phosphatase 80 U/L Hemoglobin A1C 6.0 4.0 - 6.0 12/11/2021 [facility] Provider LAB BLOOD ORDERABLES Lianet l Result from Last 3 Months or Most Recently Relevant to Health Maintenance Insurance Medicare UHC Medicare Care Teams Driver Merchandiser Relationship Specialty Start Date End Date Jaylen Taylor CNP [address] [place] [address] PCP - General 04/04/23
== END 2024-09-03 11:20 | disposition home or self-care (01) ==
LOC: HO.HMCFM 10:40
PROVIDERS: PCP Nurse Practitioner Family; Visit Provider Nurse Practitioner Family
DX: I10 Essential (primary) hypertension (principal); E03.9 Hypothyroidism, unspecified

== ENCOUNTER → 2024-09-03 10:39 | Outpatient (BNVA) | payer MEDICARE, SELFPAY | PROVIDERS: PCP Nurse Practitioner Family; Visit Provider Nurse Practitioner Family | DX: I10 Essential (primary) hypertension (principal); E03.9 Hypothyroidism, unspecified; D64.9 Anemia, unspecified | CPT/HCPCS: 99212 ==

== ENCOUNTER 2024-09-03 11:33 | Outpatient (REF) | payer MEDICARE, SELFPAY ==
--- OUTSIDE RECORDS SUMMARY | 2024-09-03 12:31 | XMS_ITS | Encounter Summary ---
Author Organization [facility] Address [address] [facility] [address] [place] [address] Phone Care Team Providers Care Junior Php Developer Name Role Phone Jaylen Taylor CNP Primary Care Provider [phone] Encounter Details Date Type Department Care Team (Late st Contact Info) Description 04/22/2022 Telephone [facility] [address] [facility] [address] [place] [address] Ilir Roca MD Social History [...] thank you, order was faxed over to [facility] * Telephone Encounter - Carmen Chamorro - [...] [facility] [address] [place] [phone] Elia Winters MD [address] [facility] [address] [place] [address] documented as of this encounter Visit Diagnoses Not on filedocumented in this encounter Care Teams Junior Php Developer Relationship Specialty Start Date End Date Jaylen Taylor CNP [address] [place] [address] PCP - General 04/04/23 documented as of this encounter
--- OUTSIDE RECORDS SUMMARY | 2024-09-03 12:31 | XMS_ITS | Clinical Summary ---
Author Organization [facility] it Address [address] [place] [address] Care Team Providers Care Private Branch Exchange Service Advisor Name Role Phone Landy Sutherland MD Primary Care Provider [phone] Surgical History Surgery Date Site/Laterality Comments OTHER SURGICAL HISTORY PROCEDURE: WI LAMNOTMY INCL W/DCMPRSN NRV ROOT 1 INTRSPC LUMBR; COMMENT: 3 back operations CAROTID ENDARTERECTOMY 2000 PROCEDURE: HISTORICAL CAROTID ENDART; COMMENT: right VAGINAL DELIVERY PROCEDURE: WI VAGINAL DELIVERY ONLY; COMMENT: x2 ABDOMINAL SURGERY age 22 PROCEDURE: WI UNLISTED PROCEDURE ABDOMEN PERITONEUM & OMENTUM; COMMENT: laparotomy with LSO for ruptured ectopic TONSILLECTOMY PROCEDURE: HISTORICAL TONSILLECTOMY Medical History Medical History Date Comments Esophageal reflux 03/01/2005 DX:Esophageal reflux Lumbago 03/01/2005 DX:Lumbago Thoracic aneurysm, ruptured ([facility] V24, [facility] V28) 11/12/2004 DX:Thoracic aneurysm, ruptur ed ([facility]) Peripheral vascular disease, unspecified ([facility] V24) 11/09/2004 DX:Peripheral vascular disea se, unspecified ([facility]) Other dyspnea and respirator y abnormality 11/09/2004 DX:Other dyspnea and respira tory abnormality Sciatica 09/12/2004 DX:Sciatica Sinoatrial node dysfunction ([facility] V24, [facility] V28) 01/19/2004 DX:Sinoatrial node dysfuncti on ([facility]) Cervicalgia 01/04/2004 DX:Cervicalgia Palpitations 01/04/2004 DX:Palpitations Syncope [...] with ophthalmic manifestations, not stated as uncontrolled(250.50) ([facility] V24, [facility] V28) 07/15/2012 DX:Type II or unspecified ty pe diabetes mellitus with ophthalmic manifestations, not stated as uncontrolled(250.50) ([facility]); COMMENT: Bilateral mild nuclear sclerosis. Type II or unspecified type diabetes mellitus with renal manifestations, not stated as uncontrolled(250.40) ([facility] V24, [facility] V28) 08/07/2007 DX:Type II or unspecified t ype diabetes mellitus with renal manifestations, not stated as uncontrolled(250.40) ([facility]); COMMENT: 07/10--Ogtt neg Intol Lisinopril CKD stage [...] DX:Weight loss Pacemaker DX:Pacemaker Peripheral vascular disease ([facility] V24) DX:Peripheral vascular disea se ([facility]) Family History Medical History Relation Name Comments [...] age to complete this topic Care Teams Private Branch Exchange Service Advisor Relationship Specialty Start Date End Date Landy Sutherland MD PCP - General 05/24/22
--- OUTSIDE RECORDS SUMMARY | 2024-09-03 12:31 | XMS_ITS | Clinical Summary ---
Author Organization [facility] Address [address] [facility] [address] [place] [address] Phone Care Team Providers Care Assignment Clerk Name Role Phone Jaylen Taylor CNP Primary Care Provider Allergies Active [...] Office Visit [facility] [address] [place] [address] Elia Winters MD [address] [address] Health Maintenance Due Date Last [...] Hemoglobin A1C 6.0 4.0 - 6.0 12/11/2021 [facility] Provider LAB BLOOD ORDERABLES Lianet l Result from Last 3 Months or Most Recently Relevant to Health Maintenance Insurance Medicare UHC Medicare Care Teams Assignment Clerk Relationship Specialty Start Date End Date Jaylen Taylor CNP [address] [place] [address] PCP - General 04/04/23
--- OUTSIDE RECORDS SUMMARY | 2024-09-03 12:31 | XMS_ITS | Continuity of Care Document ---
Author Organization [facility] [address] [place] [address] Phone [phone] Care Team Providers Care Aix Architect Name Role Phone Claudia York CNP Care Team Information Receive r [phone] Problems Active Problems Provider Date Osteoporosis Emanuel [...] Indications Ordering Provider Date Vitamin D (Ergocalciferol)1.25mg (90592 Ut) Capsules 1 tab by mouth every week 8caps Emanuel Cueva M.D. 06/20/2023 Lisinopril2.5mg Tablets Take 1 Tablet Orally Every Evening Unknown Clopidogrel [id number] Tablets Take 1 Tablet By Mouth Every Day Des Sanchez MD Amlodipine Zcxkgkgu71uz Tablets Take 1 Tablet By Mouth Every Day Unknown Oywlfvgjin383xz Tablets Take 1 Tablet By Mouth 2 Times A Day For 30 Days Claudia York CNP Ferrous Zycasju722(65Fe) mg Tablets Take 1 Tablet By Mouth 1 Time Each Day With Breakfast. Unknown Pramipexole Dihydrochloride0.125mg Tablets Take 2 By Mouth Daily Des Sanchez MD Kazbhakhlz809zk Capsules Take 1 Capsule By Mouth Three Times A Day Unknown Sertraline PCM319cn Tablets Take 1 Tablet By Mouth Twice A Day Des Sanchez MD Metformin XRT532rr Tablets Take 1 Tablet By Mouth Twice A Day Des Sanchez MD Atorvastatin Jvrhzsj24vb Tablets Take 1 Tablet By Mouth Every Day Des Sanchez MD Levothyroxine Vwdkgd516esw Tablets Take 1 Tablet By Mouth Every Day Des Sanchez MD Vital Signs Date Vital Result Comment 06/16/2023 9:37am BP Systolic 110 mmHg BP Diastolic 70 mmHg Heart Rate 72 /min Height 64 inches 5'4 Weight 128.12 lb BMI (Body Mass Index) 22.0 kg/m2 Results Test Acquired Date Facility Test Result H/L Range N ote Basic Metabolic Panel 06/16/2023 [facility] Glucose 102 mg/dL High (70-99) BUN 24 mg/dL High (8-23) Creatinine 1.3 mg/dL High (0.5-1.0) Sodium 140 mmol/L (133-145) Potassium 5.2 mmol/L (3.6-5.2) Chloride 105 mmol/L (98-107) Bicarbonate 20 mmol/L Low (22-29) Anion Gap 15 (4-17) Calcium 10.4 mg/dL (8.6-10.5 ) Estimated GFR Creatinine 41 ML/MIN/1.7 3M2 1 25Oh Vitamin D 06/16/2023 [facility] 25Oh Vitamin D 14.9 NG/ML Low (20-50) Albumin 06/16/2023 [facility] Albumin 4.6 GM/DL (3.4-4.8) PTH, Intact 06/16/2023 [facility] PTH, Intact 102 pg/mL High (15-65) Phosphorus 06/16/2023 [facility] Phosphorus 3.6 mg/dL (2.5-4.5) [...] E11.9 Type 2 diabetes mellitus* New Labs:* Jwxoylq-Fl-Oxkxe, Ordered: 06/16/23 * Creat Clearance, Ordered: 06/16/23 * N-Telopeptide Cross Links, Urine, Ordered: 06/16/23 Functional Status Description No Information Available Mental Status Description No Information Available Referrals Description No Information Available
[2024-09-03 14:29] LABS: MANUAL DIFF FLAG NO
[2024-09-03 14:42] LABS: Basophils Percent Auto 0.5 % (0-2); Eosinophils Absolute Auto 1.1 X10*3/uL (0.0-0.4); Eosinophils Percent Auto 14.2 % (0-4); Hematocrit 37.4 % (37.0-47.0); Hemoglobin 12.3 g/dl (12.0-16.0); Imm Gran Abs Auto 0.02 X10*3/uL (0.00-0.03); Imm Gran Pct Auto 0.3 % (0.0-0.4); Lymphocytes Absolute Auto 0.7 X10*3/uL (1.2-4.9); Lymphocytes Percent Auto 9.7 % (20-40); Mean Corpuscular HGB Conc 32.9 g/dl (31.0-35.0); Mean Corpuscular Volume 91.2 fL (80.0-98.0); Mean Platelet Volume 9.9 fL (9.4-12.3); Monocytes Absolute Auto 0.4 X10*3/uL (0.1-1.2); Neutrophils Absolute Auto 5.2 x10*3/uL (2.0-8.3); Neutrophils Percent Auto 70.3 % (45-73); Platelet Count 284 X10*3/uL (160-400); Red Cell Distribution Width 13.4 % (11.0-16.0); White Blood Count 7.4 X10*3/uL (4.8-10.8)
[2024-09-03 14:47] LABS: Alanine Aminotransferase 15 U/L (0-31); Albumin Level 4.2 g/dL (3.5-5.0); Alkaline Phosphatase 102 U/L (39-117); Anion Gap 12 (12-20); Aspartate Amino Transferase 18 U/L (5-31); Bilirubin Total 0.3 mg/dL (0.0-1.0); Blood Urea Nitrogen 21 mg/dL (9-16); Calcium 10.4 mg/dL (8.4-10.2); Carbon Dioxide 25 mmol/L (22-29); Chloride 110 mmol/L (96-108); Estimated Glomerular Filt Rate 38; Glucose Random 121 mg/dL (60-115); Iron 110 mcg/dL (30-160); Percent Iron Saturation 36 % (15-50); Potassium 5.5 mmol/L (3.3-5.1); Sodium 141 mmol/L (135-145); Total Iron Binding Capacity 308 mcg/dL (228-428); Total Protein 7.6 g/dL (6.5-8.0); Unsaturated Iron Binding 198 ug/dL
[2024-09-03 15:05] LABS: TSH reflex Free T4 0.13 uIU/mL (0.32-4.0)
[2024-09-03 15:49] LABS: Free T4 (Free Thyroxine) 1.25 ng/dL (0.71-1.85)
== END 2024-09-03 11:34 | disposition home or self-care (01) ==
LOC: HO.WFDLDS 11:33
PROVIDERS: Referring Provider Internal Medicine Medical Oncology; Visit Provider Nurse Practitioner Family
DX: I10 Essential (primary) hypertension (principal); E03.9 Hypothyroidism, unspecified; D64.9 Anemia, unspecified
CPT/HCPCS: 36415; 80053; 83540; 84439; 84443; 85025; 99212

== ENCOUNTER → 2024-09-10 23:59 | Outpatient (BNV) | payer MEDICARE, SELFPAY ==
--- NOTE | 2024-09-13 16:33 | MHC.OFFVIS ---
Intake Visit Reasons: Remote device check- Biotronik Allergies acetaminophen [From Percocet] Allergy (Intermediate, Verified 09/03/24 11:07) Itching oxycodone [From Percocet] Allergy (Intermediate, Verified 09/03/24 11:07) Itching Seasonal Allergies Allergy (Intermediate, Verified 09/03/24 11:07) Itchy Eyes ibuprofen [From Motrin] Allergy (Unknown, Verified 09/03/24 11:07) Swelling wheat Adverse Reaction (Unknown, Verified 09/03/24 11:07) Diarrhea lactose Adverse Reaction (Verified 09/03/24 11:07) Diarrhea PFSH Medical History Screening for lung cancer Colon cancer screening Normal physical examination, routine Viral upper respiratory illness Laboratory tests ordered as part of a complete physical exam (CPE) Cardiac pacemaker in situ Runny nose Smoking 1/2 pack a day or less SOB (shortness of breath) on exertion Smoking greater than 30 pack years Diarrhea Osteopenia Breast cancer screening Chronic diarrhea Skin tear of left upper arm without complication Aortic stenosis Restless leg syndrome No pertinent family history Hyperlipidemia Chronic back pain Osteoarthritis GERD (gastroesophageal reflux disease) Anxiety and depression Type 2 diabetes mellitus Hypertension CKD (chronic kidney disease) stage 3, GFR 30-59 ml/min Hypothyroidism Cataracts, bilateral COPD (chronic obstructive pulmonary disease) Deafness in right ear Stroke Surgical History History of esophagogastroduodenoscopy (EGD) H/O colonoscopy History of tonsillectomy History of appendectomy H/O: hysterectomy History of back surgery H/O thyroidectomy H/O endarterectomy S/P cardiac pacemaker procedure Family History Mother Bladder cancer Brother Bladder cancer Social History Household Members: Children Housing: House Do you presently have visiting nurse or other home services: No Alcohol intake: never Patient Tobacco Use Status: Current everyday Tobacco user Tobacco use type: Cigarette Cigarette Packs Per Day: 0.5 Cigarettes Per Day: 8 Years Smoked: 70 e-Cigarette/Vaping Use: Never Used Second Hand Smoke Exposure: No Substance Use Type: Marijuana Patient : No service: No Current occupational status: retired Current occupational exposures/hazards: No Cognitive needs: No Hearing needs: No Vision needs: No Office Procedures Cardiac Device Check Cardiac Device Check Details: Remote pacemaker report generated 09/10/2024. Pacemaker function is adequate [id number] Cardiac Device Interrogation, pacemaker Procedure code (CPT) selection complete Assessment & Plan Assessment & Plan (1) Cardiac pacemaker in situ: Comment: Biotronik dual-chamber pacemaker in place, placed in 2016 Code(s): Z95.0 - Presence of cardiac pacemaker Category: Medical Plan: See above Coding Level of Care Code Procedure Only Diagnoses Cardiac pacemaker in situ Z95.0 CPT Codes Cardiac Device Check - Cardiac Device 12: [id number] Cardiac Device Interrogation, pacemaker ([id number])
== END ==
PROVIDERS: PCP Nurse Practitioner Family; Visit Provider Internal Medicine Cardiovascular Disease
DX: Z45.018 Encounter for adjustment and management of other part of cardiac pacemaker (principal)
CPT/HCPCS: 93294

== ENCOUNTER → 2024-09-20 23:59 | Outpatient (BNV) | payer MEDICARE, SELFPAY ==
--- NOTE | 2024-09-28 14:30 | MHC.OFFVIS ---
Intake Visit Reasons: Remote device check- Biotronik Allergies acetaminophen [From Percocet] Allergy (Intermediate, Verified 09/03/24 11:07) Itching oxycodone [From Percocet] Allergy (Intermediate, Verified 09/03/24 11:07) Itching Seasonal Allergies Allergy (Intermediate, Verified 09/03/24 11:07) Itchy Eyes ibuprofen [From Motrin] Allergy (Unknown, Verified 09/03/24 11:07) Swelling wheat Adverse Reaction (Unknown, Verified 09/03/24 11:07) Diarrhea lactose Adverse Reaction (Verified 09/03/24 11:07) Diarrhea PFSH Medical History Screening for lung cancer Colon cancer screening Normal physical examination, routine Viral upper respiratory illness Laboratory tests ordered as part of a complete physical exam (CPE) Cardiac pacemaker in situ Runny nose Smoking 1/2 pack a day or less SOB (shortness of breath) on exertion Smoking greater than 30 pack years Diarrhea Osteopenia Breast cancer screening Chronic diarrhea Skin tear of left upper arm without complication Aortic stenosis Restless leg syndrome No pertinent family history Hyperlipidemia Chronic back pain Osteoarthritis GERD (gastroesophageal reflux disease) Anxiety and depression Type 2 diabetes mellitus Hypertension CKD (chronic kidney disease) stage 3, GFR 30-59 ml/min Hypothyroidism Cataracts, bilateral COPD (chronic obstructive pulmonary disease) Deafness in right ear Stroke Surgical History History of esophagogastroduodenoscopy (EGD) H/O colonoscopy History of tonsillectomy History of appendectomy H/O: hysterectomy History of back surgery H/O thyroidectomy H/O endarterectomy S/P cardiac pacemaker procedure Family History Mother Bladder cancer Brother Bladder cancer Social History Household Members: Children Housing: House Do you presently have visiting nurse or other home services: No Alcohol intake: never Patient Tobacco Use Status: Current everyday Tobacco user Tobacco use type: Cigarette Cigarette Packs Per Day: 0.5 Cigarettes Per Day: 8 Years Smoked: 70 e-Cigarette/Vaping Use: Never Used Second Hand Smoke Exposure: No Substance Use Type: Marijuana Patient : No service: No Current occupational status: retired Current occupational exposures/hazards: No Cognitive needs: No Hearing needs: No Vision needs: No Office Procedures Cardiac Device Check Cardiac Device Check Details: Remote pacemaker report generated 09/20/2024. Pacemaker function is adequate [id number] Cardiac Device Interrogation, pacemaker Procedure code (CPT) selection complete Assessment & Plan Assessment & Plan (1) Cardiac pacemaker in situ: Comment: Biotronik dual-chamber pacemaker in place, placed in 2016 Code(s): Z95.0 - Presence of cardiac pacemaker Category: Medical Plan: See above Coding Level of Care Code Procedure Only Diagnoses Cardiac pacemaker in situ Z95.0 CPT Codes Cardiac Device Check - Cardiac Device 12: [id number] Cardiac Device Interrogation, pacemaker ([id number])
== END ==
PROVIDERS: PCP Nurse Practitioner Family; Visit Provider Internal Medicine Cardiovascular Disease
DX: Z45.018 Encounter for adjustment and management of other part of cardiac pacemaker (principal)
CPT/HCPCS: 93294

== ENCOUNTER 2024-10-04 10:26 | Outpatient (AMB) | payer MEDICARE, SELFPAY ==
--- NOTE | 2024-10-04 10:30 | MHC.PC.OV ---
Vital Signs 10/04/24 10:36 10/04/24 11:22 Height 5 ft 4 in Weight 122 lb 8 oz BMI 21.0 BP 189/82 H 140/70 H Blood Pressure Location Lt brachial Lt brachial Position Sitting Sitting Respiration 16 Pulse 88 Pulse Source Pulse Oximeter Temp 97.8 F Temp Source Oral Pulse Oximetry (%) 97 Oxygen Delivery Method Room Air Intake Visit Reasons: Foot swelling Intake Note: patient here c/o of swollen foot [employer] Required: No Is last menstrual period known: No Post menopausal: No Patient : No Allergies acetaminophen [From Percocet] Allergy (Intermediate, Verified 10/04/24 11:03) Itching oxycodone [From Percocet] Allergy (Intermediate, Verified 10/04/24 11:03) Itching Seasonal Allergies Allergy (Intermediate, Verified 10/04/24 11:03) Itchy Eyes ibuprofen [From Motrin] Allergy (Unknown, Verified 10/04/24 11:03) Swelling wheat Adverse Reaction (Unknown, Verified 10/04/24 11:03) Diarrhea lactose Adverse Reaction (Verified 10/04/24 11:03) Diarrhea Medication List - Last Reconciled 10/04/24 by Jaylen Taylor CNP albuterol sulfate 2.5 mg (3 mL) inhalation Q4-6H PRN aspirin (Adult Low Dose Aspirin) 81 mg PO DAILY atorvastatin 80 mg PO BEDTIME buspirone 7.5 mg PO BID cefpodoxime 200 mg PO BID cetirizine (Zyrtec) 10 mg PO DAILY 30 days clopidogrel 75 mg PO DAILY 30 days ezetimibe 10 mg PO DAILY famotidine 10 mg PO DAILY ferrous sulfate 325 mg PO BID 30 days furosemide 20 mg PO DAILY PRN gabapentin 600 mg PO BID 30 days ipratropium-albuterol 0.5 mg-3 mg(2.5 mg base)/3 mL 3 mL inhalation Q6H PRN levothyroxine 125 mcg PO DAILY 30 days lisinopril 10 mg PO DAILY 30 days mecobalamin (vitamin B12) 1,000 mcg PO DAILY metoprolol succinate ER 50 mg PO DAILY 30 days pantoprazole 40 mg PO BID pramipexole 0.25 mg (2 x 0.125 mg) PO BEDTIME 30 days sertraline 100 mg PO DAILY 90 days Tobacco use date assessed: 10/04/24 Fall risk assessment: No Falls in past year Last assessed Fall Risk: 10/04/24 Dental Screening Dental Screen Date: 10/04/24 Did you have a dental visit in the last 12 months?: No Did you have a dental problem in the last 6 months where you did not have access to dental care?: No Was dental information given to patient?: No HPI HPI Comments History of Present Illness Details 79-year-old female presents with complaints of swelling to her left foot. She notes that she dropped a bowl of hot oatmeal to her left foot about a week ago. She reports pain to the area. She has been applying neosporin to the foot without improvement. She notes that visiting nurse advised her to follow-up with the PCP today. [facility] Medical History (Updated 10/04/24 @ 11:15 by Jaylen Taylor CNP) Screening for lung cancer Colon cancer screening Normal physical examination, routine Viral upper respiratory illness Laboratory tests ordered as part of a complete physical exam (CPE) Cardiac pacemaker in situ Runny nose Smoking 1/2 pack a day or less SOB (shortness of breath) on exertion Smoking greater than 30 pack years Diarrhea Osteopenia Breast cancer screening Chronic diarrhea Skin tear of left upper arm without complication Aortic stenosis Restless leg syndrome No pertinent family history Hyperlipidemia Chronic back pain Osteoarthritis GERD (gastroesophageal reflux disease) Anxiety and depression Type 2 diabetes mellitus Hypertension CKD (chronic kidney disease) stage 3, GFR 30-59 ml/min Hypothyroidism Cataracts, bilateral COPD (chronic obstructive pulmonary disease) Deafness in right ear Stroke Surgical History History of esophagogastroduodenoscopy (EGD) H/O colonoscopy History of tonsillectomy History of appendectomy H/O: hysterectomy History of back surgery H/O thyroidectomy H/O endarterectomy S/P cardiac pacemaker procedure Family History Mother Bladder cancer Brother Bladder cancer Social History Household Members: Children Housing: House Do you presently have visiting nurse or other home services: No Alcohol intake: never Patient Tobacco Use Status: Current everyday Tobacco user Tobacco use type: Cigarette Cigarette Packs Per Day: 0.5 Cigarettes Per Day: 8 Years Smoked: 70 e-Cigarette/Vaping Use: Never Used Second Hand Smoke Exposure: No Substance Use Type: Marijuana service: No Current occupational status: retired Current occupational exposures/hazards: No Cognitive needs: No Hearing needs: No Vision needs: No Questionnaire Thrive Questionnaire Date Thrive assessed: 07/30/24 I am a: Patient What is your living situation today?: I have a steady place to live Within the past 12 months, did the food you bought not last and you didn't have the money to get more?: Never true Within the past 12 months, did you worry whether your food would run out before you got money to buy more?: Never true Do you have trouble paying for medicines?: Yes Do you have trouble getting transportation to medical appointments?: No Do you have trouble paying your heating and electricity bill?: No Do you have trouble taking care of your child, family member or friend?: No Do you have trouble with day-to-day activities such as bathing, preparing meals, shopping, managing finances, etc.?: No Are you currently unemployed and looking for a job?: No Are you interested in more education?: No Please select the resources that you would like help with: None Currently or been in a relationship where the following occur: No concerns reported THRIVE Score: 0 MARCELA-7 AMB Questionnaire MARCELA-7 Date MARCELA - 7 assessed: 08/10/24 Source: Developed by Drs. Bonifacio Bethea, Danni Villa, Rico Wilcox and colleagues, with an educational saranya from [employer]. Review of Systems Const Details: Const Denies chills, Denies fatigue, Denies fever(s), Denies headache(s) and Denies weakness ENT Denies dizziness and Denies headache(s) Card Denies chest pain, Denies lightheadedness, Denies dyspnea and Denies other (Palpitations) Resp Denies cough, Denies dyspnea, Denies wheezing and Denies other ( shortness of breath) GI Denies abdominal pain, Denies melena, Denies hematochezia, Denies change in bowel habits, Denies dyspepsia and Denies nausea Denies hematuria and Denies dysuria Musc Denies abnormal gait, Denies myalgias, Denies arthralgias, Denies numbness and Denies tingling Skin/Breast Denies rash, Denies unusual bruising and Denies wounds Neuro Denies abnormal gait, Denies dizziness, Denies headache(s), Denies memory loss, Denies numbness, Denies Sensory deficit (Neuro), Denies tingling and Denies weakness Psych Denies anxiety, Denies depression, Denies memory loss Endo Denies cold intolerance, Denies fatigue, Denies heat intolerance, Denies polydipsia and Denies polyuria Aller/Immun Denies wheezing Physical exam (Primary Care) Vital Signs: Last Vital Signs Temp 97.8 F 10/04/24 10:36 Pulse 88 10/04/24 10:36 Resp 16 10/04/24 10:36 BP 189/82 H 10/04/24 10:36 Pulse Ox 97 10/04/24 10:36 Oxygen Delivery Method Room Air 10/04/24 10:36 BMI result Body Mass Index 21.0 Tobacco/Smoking Status: Tobacco use Status Tobacco use date assessed 10/04/24 10/04/24 10:40 Patient Tobacco Use Status Current everyday Tobacco 10/04/24 10:31 Tobacco use type Cigarette 10/04/24 10:31 e-Cigarette/Vaping Use Never Used 10/04/24 10:31 Thrive Assessment: Date of Thrive Assessment Date Thrive assessed 07/30/24 10/04/24 10:31 Currently or been in a relationship where the following occur: No concerns reported Const Other: General: no acute distress and well developed Nutritional Appearance: well nourished Orientation/consciousness: patient oriented x3 HENMT Head: Yes normocephalic and Yes atraumatic Eyes General: appearance normal, both eyes and all related structures Pupils: Equal, round and reactive pupils present EOM: EOMs intact bilaterally Resp Effort & Inspection: normal respiratory effort Auscultation: clear to auscultation bilaterally Cardio Rate: regular rate Rhythm: regular rhythm Heart sounds: S1 normal heart sound present, S2 normal heart sound present, no gallops, positive murmurs and no rubs GI Palpation (GI): No Abdominal aortic bruit present, Soft to palpation, nontender, No hepatosplenomegaly present and No Rebound tenderness present Auscultation: normal bowel sounds General: Yes no CVA tenderness Back/Spine/Pelvis Back: no CVA tenderness Cervical Spine: cervical ROM normal and No Cervical spine tenderness Thoracic/Lumbar Spine: thoraco-lumbar ROM normal, No pain with thoraco-lumbar ROM, No thoracic spinal tenderness and No lumbar spinal tenderness Extrem General: Yes normal to inspection, No edema and No calf tenderness Skin General: warm and dry. Normal skin color. Normal skin turgor Lesions: no lesions Rashes: no rashes Trauma: no lacerations or abrasions Wounds: Burn with large blisters noted to the left 1st 2nd and 3rd toes; blister to the base of the left 2nd and 3rd toes have burst; moderate erythema and edema surrounding the affected toes; no drainage or overt infection. Nails: normal Neuro General: patient oriented x3, gait normal and no focal neuro deficit Cranial nerves: Yes Equal, round and reactive pupils present Cognition (Neuro): normal cognition Gait exam (Neuro): Normal gait present Sensory Exam: No Sensory deficit (Neuro) Psych Appearance: grossly normal Affect: normal affect Attitude: cooperative Thought process: Normal thought process present Coding Level of Care Code Est Pt Level 4 (85231) Diagnoses Burn of left foot T25.022A Hypotension I95.9 Assessment & Plan Assessment & Plan (1) Burn of left foot: Code(s): T25.022A - Burn of unspecified degree of left foot, initial encounter Category: Medical Plan: Burn with large blisters noted to the left 1st 2nd and 3rd toes; blister to the base of the left 2nd and 3rd toes have burst; moderate erythema and edema surrounding the affected toes; no drainage or overt infection. Silvadene cream ordered; instructed for skilled nurse to clean burn area daily with normal saline, pat dry, apply Silvadene cream, and cover with nonstick sterile dressing (like Telfa) and secure loosely. Monitor for signs and symptoms of infection or poor healing and report to PCP. Keep blisters intact until spontaneously rupture. (2) Hypotension: Code(s): I95.9 - Hypotension, unspecified Category: Medical Plan: Resting blood pressure is 140/70, above goal of less than 130/80. Continue current treatment management. Low-sodium diet encouraged. Follow-up as planned next month. Return sooner with symptoms or concerns. Verbalized understanding and agreed with treatment plan. Medications: New silver sulfadiazine 1% (Silvadene) apply a 1.5 mm thickness 1 appl topical DAILY 50 grams 1RF
[2024-10-04 10:36] VITALS: BP 189/82; PULSE 88; RESP 16; TEMP 36.6; O2SAT 97; BMI 21.0
[2024-10-04 11:22] VITALS: BP 140/70
--- OUTSIDE RECORDS SUMMARY | 2024-10-04 11:31 | XMS_ITS | Clinical Summary ---
Author Organization [facility] Address [address] [place] [address] Phone Care Team Providers Care Artificial Stone Setter Name Role Phone Jaylen Taylor JEB Primary Care Provider [phone] Allergies Active Allergy Reactions Criticality Noted Date [...] Care Team (Late st Contact Info) Description 10/20/2024 1:15 PM EDT Office Visit [facility] [address] [place] [address] Elia Winters MD [address] [address] Health Maintenance Due Date Last [...] 10.1 8.7 - 10.7 mg/dL eGFR Non-Afr Mauritian 33 Total Bilirubin 0.3 MG/DL ALT (SGPT) 12 U/L AST (SGOT) 12 U/L Alkaline Phosphatase 80 U/L Hemoglobin A1C 6.0 4.0 - 6.0 12/11/2021 [facility] Provider LAB BLOOD ORDERABLES Lianet l Result from Last 3 Months or Most Recently Relevant to Health Maintenance Insurance Medicare UHC Medicare Care Teams Artificial Stone Setter Relationship Specialty Start Date End Date Jaylen Taylor CNP [address] [place] [address] PCP - General 04/04/23
== END 2024-10-04 11:26 | disposition home or self-care (01) ==
LOC: HO.HMCFM 10:27
PROVIDERS: PCP Nurse Practitioner Family; Visit Provider Nurse Practitioner Family
DX: T25.022A Burn of unspecified degree of left foot, initial encounter (principal); I95.9 Hypotension, unspecified

== ENCOUNTER → 2024-10-04 10:26 | Outpatient (BNVA) | payer MEDICARE, SELFPAY | PROVIDERS: PCP Nurse Practitioner Family; Visit Provider Nurse Practitioner Family | DX: T25.022D Burn of unspecified degree of left foot, subsequent encounter (principal); I95.9 Hypotension, unspecified | CPT/HCPCS: 99212 ==

== ENCOUNTER 2024-10-05 11:00 | Outpatient (AMB) | payer MEDICARE, SELFPAY ==
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
[2024-10-05 11:57] VITALS: BP 108/58; PULSE 97; RESP 12; TEMP 36.2; O2SAT 97; BMI 20.7
--- OUTSIDE RECORDS SUMMARY | 2024-10-05 12:42 | XMS_ITS | Clinical Summary ---
Author Organization [facility] Address [address] [facility] [address] [place] [address] Phone Care Team Providers Care Vehicle Glass Technician Name Role Phone Jaylen Taylor JEB Primary Care Provider [phone] Allergies Active Allergy Reactions Criticality Noted Date [...] Office Visit [facility] [address] [place] [address] Elia Winters MD [address] [address] Health Maintenance Due Date Last [...] 10.1 8.7 - 10.7 mg/dL eGFR Non-Afr Filipino 33 Total Bilirubin 0.3 MG/DL ALT (SGPT) 12 U/L AST (SGOT) 12 U/L Alkaline Phosphatase 80 U/L Hemoglobin A1C 6.0 4.0 - 6.0 12/11/2021 [facility] Provider LAB BLOOD ORDERABLES Lianet l Result from Last 3 Months or Most Recently Relevant to Health Maintenance Insurance Medicare UHC Medicare Care Teams Vehicle Glass Technician Relationship Specialty Start Date End Date Jaylen Taylor CNP [address] [place] [address] PCP - General 04/04/23
== END 2024-10-05 12:15 | disposition home or self-care (01) ==
LOC: HO.HMCFM 11:01
PROVIDERS: PCP Nurse Practitioner Family; Visit Provider Nurse Practitioner Family
DX: I12.9 Hypertensive chronic kidney disease with stage 1 through stage 4 chronic kidney disease, or unspecified chronic kidney disease (principal); N18.32 Chronic kidney disease, stage 3b; J43.1 Panlobular emphysema; Z09 Encounter for follow-up examination after completed treatment for conditions other than malignant neoplasm; T25.222D Burn of second degree of left foot, subsequent encounter; I73.9 Peripheral vascular disease, unspecified; F17.210 Nicotine dependence, cigarettes, uncomplicated

== ENCOUNTER → 2024-10-05 11:00 | Outpatient (BNVA) | payer MEDICARE, SELFPAY | PROVIDERS: PCP Nurse Practitioner Family; Visit Provider Nurse Practitioner Family | DX: Z09 Encounter for follow-up examination after completed treatment for conditions other than malignant neoplasm (principal); I12.9 Hypertensive chronic kidney disease with stage 1 through stage 4 chronic kidney disease, or unspecified chronic kidney disease; N18.32 Chronic kidney disease, stage 3b; J43.1 Panlobular emphysema; I73.9 Peripheral vascular disease, unspecified; T25.222D Burn of second degree of left foot, subsequent encounter; F17.210 Nicotine dependence, cigarettes, uncomplicated; Z71.6 Tobacco abuse counseling | CPT/HCPCS: 99212 ==

== ENCOUNTER 2024-11-02 09:41 | Outpatient (AMB) | payer MEDICARE, SELFPAY ==
[2024-11-02 09:50] VITALS: BP 132/80; PULSE 76; O2SAT 97; BMI 20.4
--- NOTE | 2024-11-02 09:50 | A.OFFVIS_ITS ---
Vital Signs 11/02/24 09:50 Height 5 ft 4 in Weight 119 lb BMI 20.4 BP 132/80 Blood Pressure Location Rt brachial Position Sitting Pulse 76 Pulse Source Pulse Oximeter Pulse Oximetry (%) 97 Oxygen Delivery Method Room Air Intake Visit Reasons: COPD Allergies acetaminophen (From Percocet) Allergy (Intermediate, Verified 11/02/24 09:53) Itching oxycodone (From Percocet) Allergy (Intermediate, Verified 11/02/24 09:53) Itching Seasonal Allergies Allergy (Intermediate, Verified 11/02/24 09:53) Itchy Eyes ibuprofen (From Motrin) Allergy (Unknown, Verified 11/02/24 09:53) Swelling wheat Adverse Reaction (Unknown, Verified 11/02/24 09:53) Diarrhea lactose Adverse Reaction (Verified 11/02/24 09:53) Diarrhea HPI HPI COPD: Details: Pallavi is a pleasant 79-year-old female, current smoker, with 70pyh with underlying COPD, hypertension, aortic stenosis, diastolic dysfunction on lasix 20mg, hyperlipidemia, diabetes mellitus, chronic kidney disease stage 3, peripheral vascular disease, and tachybradycardia status post pacemaker placement. She reports moderate control with Breztri however continues with dyspnea with exertion that has progressively worsened over time. Unfortunately she continues to smoke 1/2 ppd, not ready to quit at this time. The patient experienced a significant episode of hypotension with a blood pressure reading of 67/39 mmHg, leading to an emergency room visit and hospitalization from September 20 to September 24. During this hospitalization, she was treated for dehydration and fluid overload, which was confirmed by chest X-rays showing pulmonary congestion. She was administered Lasix to manage the fluid overload. She endorses orthopnea, denies BLE edema. She has a visiting nurse who sets up medications, so unsure if she is taking lasix. She has upcoming cardiology appt to further evaluate. [facility] Medical History (Updated 10/05/24 @ 12:22 by Naila Ortega [facility]) Screening for lung cancer Colon cancer screening Normal physical examination, routine Viral upper respiratory illness Laboratory tests ordered as part of a complete physical exam (CPE) Cardiac pacemaker in situ Runny nose Smoking 1/2 pack a day or less SOB (shortness of breath) on exertion Smoking greater than 30 pack years Diarrhea Osteopenia Breast cancer screening Chronic diarrhea Skin tear of left upper arm without complication Aortic stenosis Restless leg syndrome No pertinent family history Hyperlipidemia Chronic back pain Osteoarthritis GERD (gastroesophageal reflux disease) Anxiety and depression Type 2 diabetes mellitus Hypertension CKD (chronic kidney disease) stage 3, GFR 30-59 ml/min Hypothyroidism Cataracts, bilateral COPD (chronic obstructive pulmonary disease) Deafness in right ear Stroke Surgical History History of esophagogastroduodenoscopy (EGD) H/O colonoscopy History of tonsillectomy History of appendectomy H/O: hysterectomy History of back surgery H/O thyroidectomy H/O endarterectomy S/P cardiac pacemaker procedure Family History Mother Bladder cancer Brother Bladder cancer Social History (Updated 11/02/24 @ 09:53 by Daphney Guillermo CMA) Household Members: Children Housing: House Do you presently have visiting nurse or other home services: No Alcohol intake: never Patient Tobacco Use Status: Current everyday Tobacco user Tobacco use type: Cigarette Cigarette Packs Per Day: 0.25 Cigarettes Per Day: 3 Years Smoked: 70 e-Cigarette/Vaping Use: Currently Using Second Hand Smoke Exposure: No Substance Use Type: Marijuana service: No Current occupational status: retired Current occupational exposures/hazards: No Cognitive needs: No Hearing needs: No Vision needs: No Review of Systems Const Denies chills, Denies excessive sweating, Denies fever(s), Denies headache(s) and Denies night sweats Eyes Denies dry eyes, Denies irritation and Denies itchy eyes ENT Reports Normal hearing present and Denies headache(s) Card Denies chest pain, Denies chest pain at rest, Denies chest pain with activity, Denies claudication, Denies leg edema, Reports dyspnea on exertion and Denies paroxysmal nocturnal dyspnea Resp Denies hemoptysis, Denies excessive phlegm production, Denies pain on inspiration, Denies pain with cough, Reports dyspnea on exertion and Denies stridor Musc Denies myalgias Neuro Reports Normal hearing present and Denies headache(s) Endo Denies excessive sweating Arnold/Lymph Denies lymphadenopathy Aller/Immun Denies itchy eyes and Denies seasonal rhinorrhea Physical Exam Vital Signs: Last Vital Signs Pulse 76 11/02/24 09:50 BP 132/80 11/02/24 09:50 Pulse Ox 97 11/02/24 09:50 Oxygen Delivery Method Room Air 11/02/24 09:50 BMI result Body Mass Index 20.4 Const General: cooperative, healthy appearing, comfortable, no acute distress and alert Nutritional Appearance: thin Orientation/consciousness: patient oriented x3 Limitations: no limitations HEENT Head: Yes normal to inspection, Yes normocephalic and Yes atraumatic Ears: hearing grossly normal bilaterally and external ears normal Eyes General: appearance normal, both eyes and all related structures Eyelids: Yes eyelids normal Sclerae: sclerae normal EOM: EOMs intact bilaterally Neck Neck: Yes normal visual inspection and Yes no lymphadenopathy Lymphatic: no lymphadenopathy noted Chest Chest palpation & inspection: normal inspection of the chest Resp Effort & Inspection: normal respiratory effort, able to speak in complete sentences, no audible wheezes, no cough, no stridor, not tachypneic, no tripod positioning and no use of accessory muscles Auscultation: diminished lung sounds Cardio Jugular venous distension: no JVD Rate: regular rate Rhythm: regular rhythm Skin Other: warm, dry General skin exam: no rashes or lesions noted Neuro General: patient oriented x3 Cranial nerves: Yes Normal hearing present Cognition (Neuro): normal cognition Gait exam (Neuro): Normal gait present Extrem General: Yes normal to inspection, Yes capillary refill normal, Yes no clubbing, cyanosis or edema and Yes no pedal edema Psych Appearance: grossly normal and well kempt Speech and movement: Normal speech and movement present and Clear speech present Affect: normal affect Attitude: cooperative Thought process: Normal thought process present Thought content: Normal thought content present Insight: Good insight present (Psych) Judgement: Good judgement present (Psych) Results Reviewed Results Reviewed: [address] [address] [address] Scan Report Signed Patient: Pallavi Mukherjee MR#: [id number] : 1945 Acct:[id number] Age/Sex: 78 / F ADM Date: 08/31/24 Loc: HO.CT Attending Dr: Alice Haley NP Ordering Physician: Alice Haley NP Date of Service: 08/31/24 Procedure(s): CT chest wo IV con Accession Number(s): [id number] cc: Alice Haley NP; Jaylen Taylor DOCK PUMPER~ Report Number: [id number]: Total DLP = 85.00 mGy-cm CLINICAL HISTORY: R91.1 - Solitary pulmonary nodule CT chest without contrast Comparison: CR/MO/SR - XR CHEST 1V - 11/18/23 22:55 EDT Findings: The heart is normal size. Calcification of the coronary vasculature. Transvenous cardiac leads are present. Thyroidectomy clips are present. No evidence of pneumonia or edema. Calcified nodules within the right lower and middle lobes are present. 2 mm subpleural nodule within the left lower lobe posteriorly ( image 63). The upper abdomen is unremarkable. The bones are intact. IMPRESSION: 1. Benign calcified right lung granulomata. 2. Small left lung nodule. Optional follow-up chest CT in 1 year could be performed for further assessment. 3. Coronary artery disease. This document has been electronically signed by: Benjie Howard MD on 09/01/2024 14:43:18 Dictated By: Benjie Howard MD Signed By: <Electronically signed by Benjie Howard MD in OV> 09/01/24 1444 DD/ 1443 TD/TT: 09/01/24 1443 Railroad Operating Engineer: Assessment & Plan Assessment & Plan (1) COPD (chronic obstructive pulmonary disease): Code(s): J44.9 - Chronic obstructive pulmonary disease, unspecified Category: Medical Qualifiers: COPD type: emphysema Emphysema type: panlobular Qualified Code(s): J43.1 - Panlobular emphysema (2) Nicotine dependence, cigarettes, uncomplicated: Code(s): F17.210 - Nicotine dependence, cigarettes, uncomplicated Category: Medical (3) Pulmonary nodule 1 cm or greater in diameter: Code(s): R91.1 - Solitary pulmonary nodule Category: Medical Plan Pallavi continues to report dyspnea on exertion, with more frequent episodes of orthopnea. Encouraged patient to reach out to cardiology for further evaluation and continue Breztri in addition to nebulized therapy which she has not been consistently using. She is instructed to use her nebulizer at least once daily, preferably twice, to manage her respiratory symptoms. The patient is advised to weigh herself daily to monitor for fluid retention, with specific instructions to contact cardiology if there is a weight gain of more than 3 pounds in a day or 5 pounds in a week. The patient is also advised to avoid vaping due to potential lung irritation and to continue efforts to quit smoking. All questions were answered and patient is in agreement of plan. Will follow up in 8 weeks or sooner if needed. Medications: New mhlysemhzg-erwgdcdc-ntlmrzajls 160-9-4.8 mcg/actuation (Breztri Aerosphere) 2 inhalations inhalation BID 10.7 grams 6RF Coding Level of Care Code Est Pt Level 4 (29758) Diagnoses Panlobular emphysema J43.1 COPD type: emphysema Emphysema type: panlobular Nicotine dependence, cigarettes, uncomplicated F17.210 Pulmonary nodule 1 cm or greater in diameter R91.1
--- OUTSIDE RECORDS SUMMARY | 2024-11-02 10:30 | XMS_ITS | Patient Health Record ---
Author Organization [facility] Address [address] [place] [address] Care Team Providers Care Java Jsf Developer Name Role Phone Ravin RASCON, Oscar Primary Care Provider Prashant Sibley Unavailable [phone] Allergies Allergen (clinical drug ingredient) Drug/Non Drug Allergy documented on EMR Reaction Allergy Type Onset Date Status Percocet Unknown Drug Allergy Active Banana (Diagnostic) Unknown Drug Allergy Active ibuprofen [...] W/U Status Risk Notes Problem Essential hypertension (90698848) Essential (primary) hypertension (I10) Active confirmed Problem Aortic valve disorder (2778624) Nonrheumatic aortic (valve) stenosis (I35.0) Active confirmed Problem Cerebrovascular disease (64285978) Cerebrovascular disease, unspecified (I67.9) Active confirmed Problem Obesity due to excess calories (697920877) Other obesity due to excess calories (E66.09) Active confirmed Problem Sick sinus syndrome (90160076) Sick sinus syndrome (I49.5) Active confirmed Problem Occlusion and stenosis of multiple and bilateral cerebral arteries (247403444) Occlusion and stenosis of bilateral carotid arteries (I65.23) Active confirmed Problem Carotid artery occlusion (896085373) Occlusion and stenosis of unspecified carotid artery (I65.29) Active confirmed Problem Cardiac pacemaker in situ (940349333) Presence of cardiac pacemaker (Z95.0) Active confirmed Problem Aortic valve disorder (2346694) Nonrheumatic aortic (valve) stenosis (I35.0) Active confirmed Problem Mixed hyperlipidemia (979376196) Mixed hyperlipidemia (E78.2) Active confirmed Problem Intermittent claudication of bilateral lower limbs co-occurrent and due to atherosclerosis (55353514929173502 ) Atherosclerosis of [place] arteries of extremities with intermittent claudication, bilateral legs (I70.213) Active confirmed Problem Shortness of breath (179970818) Shortness of breath (R06.02) Active confirmed Problem Peripheral circulatory disorder associated with diabetes mellitus (981095672) 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) Active confirmed Problem Peripheral vascular disease (863481773) Other specified peripheral vascular diseases (I73.89) Active confirmed Problem Right carotid artery stenosis (044671222455382) Occlusion and stenosis of right carotid artery (I65.21) Active confirmed Problem Left carotid artery occlusion (729486350865387) Occlusion and stenosis of left carotid artery (I65.22) Active confirmed Problem Low back pain (619014998) Low back pain (M54.5) Active confirmed Problem Dizziness and giddiness (258810020) Dizziness and giddiness (R42) Active confirmed Problem Counseling about tobacco use (268386924) Tobacco abuse counseling (Z71.6) Active confirmed Problem Tobacco use (383581160) Tobacco use (Z72.0) Active confirmed Problem Counseling about tobacco use (710306637) Tobacco abuse counseling (Z71.6) Active confirmed Plan [...] Insured Coverage Start Date Coverage End Date [facility] [id number] [address] [place] [address] [id number] Pallavi Mukherjee Self - patient is the insured Medical (General) History Medical History History ICD Code Hypertension Hyperlipidemia Diabetes Aortic stenosis Sick sinus syndrome status post permanen t pacemaker Arthritis COPD Carotid stenosis CVA Peripheral arterial disease Surgical History Surgery Date(Month/Year) Tonsillectomy 1951 Appendectomy 1953 Hysterectomy 1974 Polyps of the vocal cords 1980 CVA 1984 Back surgery L4 and L5 1992 Back surgery 1995 Right carotid endarterectomy 2001 Back surgery 2005 Thyroidectomy 2011 Permanent pacemaker 2015 Right internal carotid artery stent 01/18 Left internal carotid artery stent 03/02
--- OUTSIDE RECORDS SUMMARY | 2024-11-02 10:30 | XMS_ITS | Continuity of Care Document ---
Author Organization [facility] [employer] [address] [facility] [address] [place] [address] Phone [phone] Care Team Providers Care Forging Machine Operator Name Role Phone Claudia York CNP Care Team Information Receive r [phone] Problems Active Problems Provider Date Osteoporosis Emanuel [...] Social History Type Date Description Comments Sex Female Sex Unknown ETOH Use Denies alcohol use Tobacco Use Start: Unknown Heavy tobacco sm oker (more than 10 cigarettes/day) Allergies and adverse reactions Active Allergies Criticality Reaction Severity Comments Date Acetaminophen Unable to assess criticality 06/16/2023 Oxycodone Unable to assess criticality 06/16/2023 Medications Active Medications SIG Qnty Indications Ordering Provider Date Vitamin D (Ergocalciferol)1.25mg (09904 Ut) Capsules 1 tab by mouth every week 8caps Emanuel Cueva M.D. 06/20/2023 Lisinopril2.5mg Tablets Take 1 Tablet Orally Every Evening Unknown Clopidogrel Bqorbilkf37de Tablets Take 1 Tablet By Mouth Every Day Des Sanchez MD Amlodipine Banryjvf67wy Tablets Take 1 Tablet By Mouth Every Day Unknown Wswkatxicv347cy Tablets Take 1 Tablet By Mouth 2 Times A Day For 30 Days Claudia York CNP Ferrous Idmeuvd112(65Fe) mg Tablets Take 1 Tablet By Mouth 1 Time Each Day With Breakfast. Unknown Pramipexole Dihydrochloride0.125mg Tablets Take 2 By Mouth Daily Des Sanchez MD Avzccmwrpx954ax Capsules Take 1 Capsule By Mouth Three Times A Day Unknown Sertraline EBE574si Tablets Take 1 Tablet By Mouth Twice A Day Des Sanchez MD Metformin XJB802aw Tablets Take 1 Tablet By Mouth Twice A Day Des Sanchez MD Atorvastatin Ekgwbrr95cj Tablets Take 1 Tablet By Mouth Every Day Des Sanchez MD Levothyroxine Pzydnb241cjr Tablets Take 1 Tablet By Mouth Every Day Des Sanchez MD Vital Signs Date Vital Result Comment 06/16/2023 9:37am BP Systolic 110 mmHg BP Diastolic 70 mmHg Heart Rate 72 /min Height 64 inches 5'4 Weight 128.12 lb BMI (Body Mass Index) 22.0 kg/m2 Results Test Acquired Date Facility Test Result H/L Range N ote Basic Metabolic Panel 06/16/2023 [facility] Glucose 102 mg/dL High (70-99) BUN 24 mg/dL High (8-23) Creatinine 1.3 mg/dL High (0.5-1.0) Sodium 140 mmol/L (133-145) Potassium 5.2 mmol/L (3.6-5.2) Chloride 105 mmol/L (98-107) Bicarbonate 20 mmol/L Low (22-29) Anion Gap 15 (4-17) Calcium 10.4 mg/dL (8.6-10.5 ) Estimated GFR Creatinine 41 ML/MIN/1.7 3M2 1 25Oh Vitamin D 06/16/2023 [facility] 25Oh Vitamin D 14.9 NG/ML Low (20-50) Albumin 06/16/2023 [facility] Albumin 4.6 GM/DL (3.4-4.8) PTH, Intact 06/16/2023 [facility] PTH, Intact 102 pg/mL High (15-65) Phosphorus 06/16/2023 [facility] Phosphorus 3.6 mg/dL (2.5-4.5) [...] E11.9 Type 2 diabetes mellitus* New Labs:* Ujouefj-Ch-Fwipq, Ordered: 06/16/23 * Creat Clearance, Ordered: 06/16/23 * N-Telopeptide Cross Links, Urine, Ordered: 06/16/23 Functional Status Description No Information Available Mental Status Description No Information Available Referrals Description No Information Available
--- OUTSIDE RECORDS SUMMARY | 2024-11-02 10:30 | XMS_ITS | Clinical Summary ---
Author Organization [facility] ity Address [address] [place] [address] Care Team Providers Care Behavior Interventionist Name Role Phone Landy Sutherland MD Primary Care Provider [phone] Surgical History Surgery Date Site/Laterality Comments OTHER [...] reflux Lumbago 03/01/2005 DX:Lumbago Thoracic [place], [place]ured [place] [place] [facility] [place] 11/12/2004 DX:Thoracic aneurysm, ruptur ed ([facility]) Peripheral vascular disease, unspecified ([facility] [place]) 11/09/2004 DX:Peripheral vascular disea se, unspecified ([facility]) Other dyspnea and respirator y abnormality 11/09/2004 DX:Other dyspnea and respira tory abnormality Sciatica 09/12/2004 DX:Sciatica Sinoatrial node dysfunction [place] [place] [facility] [place]) 01/19/2004 DX:Sinoatrial node dysfuncti on ([facility]) Cervicalgia 01/04/2004 DX:Cervicalgia Palpitations 01/04/2004 DX:Palpitations Syncope [...] with ophthalmic manifestations, not stated as uncontrolled(250.50) ([facility] V24, [facility] V28) 07/15/2012 DX:Type II or unspecified ty pe diabetes mellitus with ophthalmic manifestations, not stated as uncontrolled(250.50) ([facility]); COMMENT: Bilateral mild nuclear sclerosis. Type II or unspecified type diabetes mellitus with renal manifestations, not stated as uncontrolled(250.40) ([facility]24, [facility]) 08/07/2007 DX:Type II or unspecified t ype diabetes mellitus with renal manifestations, not stated as uncontrolled(250.40) ([facility]); COMMENT: 07/10--Ogtt neg Intol Lisinopril CKD stage [...] DX:Weight loss Pacemaker DX:Pacemaker Peripheral vascular disease ([facility] [place]) DX:Peripheral vascular disea se ([facility]) Family History Medical History Relation Name Comments [...] Depression Screening 04/07/2022 Falls Risk Assessment 04/07/2022 Medicare Annual Wellness Visit 04/07/2022 Osteoporosis Screening (Bone Density Screening) 04/07/2022 Social Influencers of Health Screening 04/07/2022 Hypertension/CHF/CAD Annual BMP Blood Test 04/14/2022 Diabetes: Annual Urine Albumin-Creatinine Ratio (uACR) 04/18/2022 Diabetes: Blood Sugar Control Test (HGBA1C) 04/18/2022 COVID-19 Vaccine ( season) 2024 Influenza Vaccine (#1) 2025 2, 03/11/2014, 01/20/2013, Additional history exists DTaP,Tdap,and [...] age to complete this topic Care Teams Behavior Interventionist Relationship Specialty Start Date End Date Landy Sutherland MD PCP - General 05/24/22
--- OUTSIDE RECORDS SUMMARY | 2024-11-02 10:30 | XMS_ITS | Clinical Summary ---
Author Organization [facility] Address [address] [place] [address] Phone Care Team Providers Care Woolen Tester Name Role Phone Jaylen Taylor JEB Primary Care Provider [phone] Allergies Active Allergy Reactions Criticality Noted Date [...] each day 90 tablet 3 3 Active busPIRone (BUSPAR) 7.5 MG tablet Take 7.5 [...] 30 tablet 11 5 06/04/19 26 Active Additional Information Patient not taking.Reported on 10/20/2024 cyanocobalamin (VITAMIN B-12) 1000 MCG tablet Take 1,000 mcg by mouth 2 Active sertraline (ZOLOFT) 100 MG tablet Take 100 mg by mouth 1 (one) time each day 5 Active pramipexole (MIRAPEX) 0.125 MG tablet Take 0.25 mg by mouth every night Active aspirin (ST JUANIS) 81 MG EC tablet Take 81 mg by mouth 1 (one) time each day Active metoprolol succinate XL (TOPROL XL) 50 MG 24 hr tablet Take 50 mg by mouth 1 (one) time each day Do not crush or chew. Active levothyroxine sodium (TIROSINT) 137 MCG capsule Take 137 mcg by mouth 1 (one) time each day 2 10/21/19 25 Discontin ued(Med List Maintenan ce) Active [...] Encounters Date Type Department Care Team Description 10/20/2024 1:15 PM EDT Office Visit [facility] [place] [address] [place] [address] Elia Winters MD Stage 3 chronic kidney disease, not otherwise specified (HCC) (Primary Dx); Hypertension; Type 2 diabetes mellitus with diabetic chronic kidney disease (HCC); Heart failure with normal ejection fraction (HCC); Other proteinuria from Last 3 Months Immunizations Immunization Administration [...] Sign Reading Time Taken Comments Blood Pressure 110/57 10/20/2024 1:12 PM EDT Pulse 66 10/20/2024 1:12 PM EDT Temperature - - Respiratory Rate - - Oxygen Saturation 97% 04/04/2023 10:23 AM EST Inhaled Oxygen Concentration - - Weight 54.4 kg (120 lb) 10/20/2024 1:12 PM EDT Height - - Body Mass Index - - Plan of Treatment Upcoming Encounters Date Type Department Care Team (Late st Contact Info) Description 04/20/2025 3:00 PM EST Office Visit [facility] [address] [place] [address] Elia Winters MD [address] [address] Health Maintenance Due Date Last [...] 10.1 8.7 - 10.7 mg/dL eGFR Non-Afr Citizen Of [place] 33 Total Bilirubin 0.3 MG/DL ALT (SGPT) 12 U/L AST (SGOT) 12 U/L Alkaline Phosphatase 80 U/L Hemoglobin A1C 6.0 4.0 - 6.0 12/11/2021 us Historical Provider LAB BLOOD ORDERABLES Lianet l Result from Last 3 Months or Most Recently Relevant to Health Maintenance Insurance [facility] Medicare [facility] Medicare Care Teams Woolen Tester Relationship Specialty Start Date End Date Jaylen Taylor CNP [address] [place] [address] PCP - General 04/04/23
== END 2024-11-02 10:37 | disposition home or self-care (01) ==
PROVIDERS: PCP Nurse Practitioner Family; Visit Provider Nurse Practitioner Family
DX: J43.1 Panlobular emphysema (principal); F17.210 Nicotine dependence, cigarettes, uncomplicated; R91.1 Solitary pulmonary nodule
CPT/HCPCS: 99214

== ENCOUNTER → 2024-11-02 09:41 | Outpatient (BNVA) | payer MEDICARE, SELFPAY | PROVIDERS: PCP Nurse Practitioner Family; Visit Provider Nurse Practitioner Family | DX: J43.1 Panlobular emphysema (principal); R91.1 Solitary pulmonary nodule; F17.210 Nicotine dependence, cigarettes, uncomplicated; E11.22 Type 2 diabetes mellitus with diabetic chronic kidney disease; I12.9 Hypertensive chronic kidney disease with stage 1 through stage 4 chronic kidney disease, or unspecified chronic kidney disease; N18.30 Chronic kidney disease, stage 3 unspecified; Z95.0 Presence of cardiac pacemaker; Z79.899 Other long term (current) drug therapy | CPT/HCPCS: 99212 ==

== ENCOUNTER → 2024-11-04 23:59 | Outpatient (BNV) | payer MEDICARE, SELFPAY ==
--- NOTE | 2024-11-09 14:36 | MHC.OFFVIS ---
Intake Visit Reasons: Remote device check- Biotronik Allergies acetaminophen (From Percocet) Allergy (Intermediate, Verified 11/08/24 10:45) Itching oxycodone (From Percocet) Allergy (Intermediate, Verified 11/08/24 10:45) Itching Seasonal Allergies Allergy (Intermediate, Verified 11/08/24 10:45) Itchy Eyes ibuprofen (From Motrin) Allergy (Unknown, Verified 11/08/24 10:45) Swelling wheat Adverse Reaction (Unknown, Verified 11/08/24 10:45) Diarrhea lactose Adverse Reaction (Verified 11/08/24 10:45) Diarrhea [facility] Medical History (Updated 10/05/24 @ 12:22 by Naila Ortega, [facility]) Screening for lung cancer Colon cancer screening Normal physical examination, routine Viral upper respiratory illness Laboratory tests ordered as part of a complete physical exam (CPE) Cardiac pacemaker in situ Runny nose Smoking 1/2 pack a day or less SOB (shortness of breath) on exertion Smoking greater than 30 pack years Diarrhea Osteopenia Breast cancer screening Chronic diarrhea Skin tear of left upper arm without complication Aortic stenosis Restless leg syndrome No pertinent family history Hyperlipidemia Chronic back pain Osteoarthritis GERD (gastroesophageal reflux disease) Anxiety and depression Type 2 diabetes mellitus Hypertension CKD (chronic kidney disease) stage 3, GFR 30-59 ml/min Hypothyroidism Cataracts, bilateral COPD (chronic obstructive pulmonary disease) Deafness in right ear Stroke Surgical History History of esophagogastroduodenoscopy (EGD) H/O colonoscopy History of tonsillectomy History of appendectomy H/O: hysterectomy History of back surgery H/O thyroidectomy H/O endarterectomy S/P cardiac pacemaker procedure Family History Mother Bladder cancer Brother Bladder cancer Social History (Updated 11/02/24 @ 09:53 by Daphney Guillermo CMA) Household Members: Children Housing: House Do you presently have visiting nurse or other home services: No Alcohol intake: never Patient Tobacco Use Status: Current everyday Tobacco user Tobacco use type: Cigarette Cigarette Packs Per Day: 0.25 Cigarettes Per Day: 3 Years Smoked: 70 e-Cigarette/Vaping Use: Currently Using Second Hand Smoke Exposure: No Substance Use Type: Marijuana service: No Current occupational status: retired Current occupational exposures/hazards: No Cognitive needs: No Hearing needs: No Vision needs: No Office Procedures Cardiac Device Check Cardiac Device Check Details: Remote pacemaker report generated 11/04/2024. Pacemaker function is adequate [id number] Cardiac Device Interrogation, pacemaker Procedure code (CPT) selection complete Assessment & Plan Assessment & Plan (1) Cardiac pacemaker in situ: Comment: Biotronik dual-chamber pacemaker in place, placed in 2015 Code(s): Z95.0 - Presence of cardiac pacemaker Category: Medical Plan: See above Coding Level of Care Code Procedure Only Diagnoses Cardiac pacemaker in situ Z95.0 CPT Codes Cardiac Device Check - Cardiac Device 12: [id number] Cardiac Device Interrogation, pacemaker ([id number])
== END ==
PROVIDERS: PCP Nurse Practitioner Family; Visit Provider Internal Medicine Cardiovascular Disease
DX: Z45.018 Encounter for adjustment and management of other part of cardiac pacemaker (principal)
CPT/HCPCS: 93294

== ENCOUNTER 2024-11-08 10:27 | Outpatient (AMB) | payer MEDICARE, SELFPAY ==
--- NOTE | 2024-11-08 10:36 | A.OFFPC_ITS ---
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 Required: No Is last menstrual period known: No Post menopausal: No Patient : No Allergies acetaminophen (From Percocet) Allergy (Intermediate, Verified 11/08/24 10:45) Itching oxycodone (From Percocet) Allergy (Intermediate, Verified 11/08/24 10:45) Itching Seasonal Allergies Allergy (Intermediate, Verified 11/08/24 10:45) Itchy Eyes ibuprofen (From Motrin) Allergy (Unknown, Verified 11/08/24 10:45) Swelling wheat Adverse Reaction (Unknown, Verified 11/08/24 10:45) Diarrhea lactose Adverse Reaction (Verified 11/08/24 10:45) Diarrhea Medication List - Last Reconciled 11/08/24 by Jaylen Taylor CNP albuterol sulfate 2.5 mg (3 mL) inhalation Q4-6H PRN aspirin (Adult Low Dose Aspirin) 81 mg PO DAILY atorvastatin 80 mg PO BEDTIME hbhalxbpzw-zavrtvta-xytzwavcih 160-9-4.8 mcg/actuation (Breztri Aerosphere) 2 inhalations inhalation BID cetirizine (Zyrtec) 10 mg PO DAILY 30 days clopidogrel 75 mg PO DAILY 30 days ezetimibe 10 mg PO DAILY famotidine 10 mg PO DAILY ferrous sulfate 325 mg PO BID 30 days furosemide 20 mg PO DAILY PRN gabapentin 600 mg PO BID 30 days ipratropium-albuterol 0.5 mg-3 mg(2.5 mg base)/3 mL 3 mL inhalation Q6H PRN levothyroxine 125 mcg PO DAILY 30 days lisinopril 10 mg PO DAILY 30 days mecobalamin (vitamin B12) 1,000 mcg PO DAILY metoprolol succinate ER 50 mg PO DAILY 30 days pantoprazole 40 mg PO BID pramipexole 0.25 mg (2 x 0.125 mg) PO BEDTIME sertraline 100 mg PO DAILY 90 days silver sulfadiazine 1% (Silvadene) 1 appl topical DAILY Tobacco use date assessed: 11/08/24 Fall risk assessment: 2 + Falls in past year Last assessed Fall Risk: 11/08/24 Dental Screening Dental Screen Date: 11/08/24 Did you have a dental visit in the last 12 months?: No Did you have a dental problem in the last 6 months where you did not have access to dental care?: No Was dental information given to patient?: Yes HPI HPI Comments History of Present Illness Details 79-year-old female presents for hyperten marcella, anxiety, and depression follow-up. She admits to taking her medications as prescribed without adverse reactions. She reports controlled anxiety and depressive symptoms on current treatment regimen. She reports chronic persistent burning posterior neck pain, which sometimes increases in intensity. Recent x-ray of her cervical spine was unremarkable. She denies tingling, numbness, or loss of sensation. [facility] Medical History (Updated 10/05/24 @ 12:22 by Naila Ortega, [facility]) Screening for lung cancer Colon cancer screening Normal physical examination, routine Viral upper respiratory illness Laboratory tests ordered as part of a complete physical exam (CPE) Cardiac pacemaker in situ Runny nose Smoking 1/2 pack a day or less SOB (shortness of breath) on exertion Smoking greater than 30 pack years Diarrhea Osteopenia Breast cancer screening Chronic diarrhea Skin tear of left upper arm without complication Aortic stenosis Restless leg syndrome No pertinent family history Hyperlipidemia Chronic back pain Osteoarthritis GERD (gastroesophageal reflux disease) Anxiety and depression Type 2 diabetes mellitus Hypertension CKD (chronic kidney disease) stage 3, GFR 30-59 ml/min Hypothyroidism Cataracts, bilateral COPD (chronic obstructive pulmonary disease) Deafness in right ear Stroke Surgical History History of esophagogastroduodenoscopy (EGD) H/O colonoscopy History of tonsillectomy History of appendectomy H/O: hysterectomy History of back surgery H/O thyroidectomy H/O endarterectomy S/P cardiac pacemaker procedure Family History Mother Bladder cancer Brother Bladder cancer Social History (Updated 11/02/24 @ 09:53 by Daphney Guillermo CMA) Household Members: Children Housing: House Do you presently have visiting nurse or other home services: No Alcohol intake: never Patient Tobacco Use Status: Current everyday Tobacco user Tobacco use type: Cigarette Cigarette Packs Per Day: 0.25 Cigarettes Per Day: 3 Years Smoked: 70 e-Cigarette/Vaping Use: Currently Using Second Hand Smoke Exposure: No Substance Use Type: Marijuana service: No Current occupational status: retired Current occupational exposures/hazards: No Cognitive needs: No Hearing needs: No Vision needs: No Questionnaire PHQ-9 Over the last 2 weeks, how often have you been bothered by any of the following problems? 1. Little interest or pleasure in doing things: several days 2. Feeling down, depressed, or hopeless: several days 3. Trouble falling or staying asleep, or sleeping too much: not at all 4. Feeling tired or having little energy: nearly every day 5. Poor appetite or overeating: not at all 6. Feeling bad about yourself - or that you are a failure or have let yourself or your family down: not at all 7. Trouble concentrating on things, such as reading the newspaper or watching television: several days 8. Moving or speaking so slowly that other people could have noticed. Or the opposite - being so fidgety or restless that you have been moving around a lot more than usual: not at all 9. Thoughts that you would be better off or of hurting yourself in some way: not at all Total score: 6 Depression Screening Interpretation: Positive Depression Screening Follow-up: Existing condition and In treatment Depression Screening Done: Yes 09175 - PHQ-9 Billing: Yes Source: Developed by Drs. Bonifacio Bethea, Danni Villa, Rico Wilcox and colleagues, with an educational saranya from [employer]. Thrive Questionnaire Date Thrive assessed: 07/30/24 I am a: Patient What is your living situation today?: I have a steady place to live Within the past 12 months, did the food you bought not last and you didn't have the money to get more?: Never true Within the past 12 months, did you worry whether your food would run out before you got money to buy more?: Never true Do you have trouble paying for medicines?: Yes Do you have trouble getting transportation to medical appointments?: No Do you have trouble paying your heating and electricity bill?: No Do you have trouble taking care of your child, family member or friend?: No Do you have trouble with day-to-day activities such as bathing, preparing meals, shopping, managing finances, etc.?: No Are you currently unemployed and looking for a job?: No Are you interested in more education?: No Please select the resources that you would like help with: None Currently or been in a relationship where the following occur: No concerns reported THRIVE Score: 0 MARCELA-7 AMB Questionnaire MARCELA-7 Date MARCELA - 7 assessed: 11/08/24 Feeling nervous, anxious, or on edge: 1 = Several days Not being able to stop or control worryin = Not at all Worrying too much about different things: 0 = Not at all Trouble relaxin = Nearly every day Being so restless that it is hard to sit still: 1 = Several days Becoming easily annoyed or irritable: 0 = Not at all Feeling afraid as if something awful might happen: 0 = Not at all Total MARCELA-7 score (0-4 normal; 5-9 mild; 10-14 moderate; 15-21 severe): 5 Source: Developed by Drs. Bonifacio Bethea, Danni Villa, Rico Wilcox and colleagues, with an educational saranya from [employer]. MARCELA-7 Assessment Billing MARCELA-7 Assessment Tool: MARCELA-7 Assessment 95627 Review of Systems Const Details: Const Denies chills, Denies fatigue, Denies fever(s), Denies headache(s) and Denies weakness ENT Denies dizziness and Denies headache(s) Card Denies chest pain, Denies lightheadedness, Denies dyspnea and Denies other (Palpitations) Resp Denies cough, Denies dyspnea, Denies wheezing and Denies other ( shortness of breath) GI Denies abdominal pain, Denies melena, Denies hematochezia, Denies change in bowel habits, Denies dyspepsia and Denies nausea Denies hematuria and Denies dysuria Musc Reports as per HPI Skin/Breast Denies rash, Denies unusual bruising and Denies wounds Neuro Denies abnormal gait, Denies dizziness, Denies headache(s), Denies memory loss, Denies numbness, Denies Sensory deficit (Neuro), Denies tingling and Denies weakness Psych Denies anxiety, Denies depression, Denies memory loss Endo Denies cold intolerance, Denies fatigue, Denies heat intolerance, Denies polydipsia and Denies polyuria Aller/Immun Denies wheezing Physical exam (Primary Care) Vital Signs: Last Vital Signs Temp 98.0 F 11/08/24 10:40 Pulse 79 11/08/24 10:40 Resp 16 11/08/24 10:40 BP 120/66 11/08/24 10:49 Pulse Ox 99 11/08/24 10:40 Oxygen Delivery Method Room Air 11/08/24 10:40 BMI result Body Mass Index 20.3 Tobacco/Smoking Status: Tobacco use Status Tobacco use date assessed 11/08/24 11/08/24 10:43 Patient Tobacco Use Status Current everyday Tobacco 11/08/24 10:40 Tobacco use type Cigarette 11/08/24 10:40 e-Cigarette/Vaping Use Currently Using 11/08/24 10:40 Depression Screening Interpretation: Positive Depression Screening Follow-up: Existing condition and In treatment Thrive Assessment: Date of Thrive Assessment Date Thrive assessed 07/30/24 11/08/24 10:40 Currently or been in a relationship where the following occur: No concerns reported Const Other: General: no acute distress and well developed Nutritional Appearance: well nourished Orientation/consciousness: patient oriented x3 HENMT Head: Yes normocephalic and Yes atraumatic Eyes General: appearance normal, both eyes and all related structures Pupils: Equal, round and reactive pupils present EOM: EOMs intact bilaterally Resp Effort & Inspection: normal respiratory effort Auscultation: clear to auscultation bilaterally Cardio Rate: regular rate Rhythm: regular rhythm Heart sounds: S1 normal heart sound present, S2 normal heart sound present, no gallops, no murmurs and no rubs GI Palpation (GI): No Abdominal aortic bruit present, Soft to palpation, nontender, No hepatosplenomegaly present and No Rebound tenderness present Auscultation: normal bowel sounds General: Yes no CVA tenderness Back/Spine/Pelvis Back: no CVA tenderness Cervical Spine: cervical ROM normal and Cervical spine tenderness Thoracic/Lumbar Spine: thoraco-lumbar ROM normal, No pain with thoraco-lumbar ROM, No thoracic spinal tenderness and No lumbar spinal tenderness Extrem General: Yes normal to inspection, No edema and No calf tenderness Skin General: warm and dry. Normal skin color. Normal skin turgor Neuro General: patient oriented x3, gait normal and no focal neuro deficit Cranial nerves: Yes Equal, round and reactive pupils present Cognition (Neuro): normal cognition Gait exam (Neuro): Normal gait present Sensory Exam: No Sensory deficit (Neuro) Psych Appearance: grossly normal Affect: normal affect Attitude: cooperative Thought process: Normal thought process present Coding Level of Care Code Est Pt Level 4 (71348) Diagnoses Primary hypertension I10 Hypertension type: primary hypertension Anxiety and depression F41.9; F32.A Chronic neck pain M54.2; G89.29 Additional Codes MARCELA-7 Assessment Billing - MARCELA-7 Assessment Tool: MARCELA-7 Assessment 54099 ([id number]) PHQ-9 - 72900 - PHQ-9 Billing: Yes ([id number]) Assessment & Plan Assessment & Plan (1) Hypertension: Code(s): I10 - Essential (primary) hypertension Category: Medical Qualifiers: Hypertension type: primary hypertension Qualified Code(s): I10 - Essential (primary) hypertension Plan: Resting blood pressure is 120/66, within goal of less than 130/80. Continue current treatment regimen. Low-sodium diet encouraged. Follow-up in 3 months or sooner with symptoms or concerns. Verbalized understanding and agreed with the treatment plan. (2) Anxiety and depression: Code(s): F41.9 - Anxiety disorder, unspecified; F32.A - Depression, unspecified Category: Medical Plan: Reports controlled anxiety and depressive symptoms on current treatment regimen. PHQ-9 and MARCELA-7 scores revealed mild depression and anxiety. Continue current treatment regimen. Routine exercise encouraged. Follow-up in 3 months or sooner with symptoms or concerns. Verbalized understanding and agreed with treatment plan. (3) Chronic neck pain: Code(s): M54.2 - Cervicalgia; G89.29 - Other chronic pain Category: Medical Plan: She reports chronic persistent burning posterior neck pain, which sometimes increases in intensity. Recent x-ray of her cervical spine was unremarkable. She denies tingling, numbness, or loss of sensation. Cervical spine tenderness to palpation. No overt injury or trauma. Lidocaine patch ordered; advised to use as prescribed. Continue to take gabapentin as prescribed. CT of cervical spine ordered; will review results and make changes as needed. Verbalized understanding and agreed with the plan. Orders: Orders CT cervical spine wo IV con Today G89.29 - Other chronic pain, M54.2 - Cervicalgia Medications: New lidocaine 5% leave on most painful area for up to 12 hrs 1 patch topical DAILY 30 ea 3RF
[2024-11-08 10:40] VITALS: BP 170/76; PULSE 79; RESP 16; TEMP 36.7; O2SAT 99; BMI 20.3
[2024-11-08 10:49] VITALS: BP 120/66
--- OUTSIDE RECORDS SUMMARY | 2024-11-08 11:19 | XMS_ITS | Patient Health Record ---
Author Organization [facility] Address [address] [place] [address] Care Team Providers Care Packing And Shipping Clerk Name Role Phone Oscar Alicia MD Primary Care Provider Prashant Sibley Unavailable [phone] Allergies Allergen (clinical drug ingredient) Drug/Non Drug [...] W/U Status Risk Notes Problem Essential hypertension (82855905) Essential (primary) hypertension (I10) Active confirmed Problem Aortic valve disorder (0101012) Nonrheumatic aortic (valve) stenosis (I35.0) Active confirmed Problem Cerebrovascular disease (27113856) Cerebrovascular disease, unspecified (I67.9) Active confirmed Problem Obesity due to excess calories (224754735) Other obesity due to excess calories (E66.09) Active confirmed Problem Sick sinus syndrome (95074501) Sick sinus syndrome (I49.5) Active confirmed Problem Occlusion and stenosis of multiple and bilateral cerebral arteries (247517555) Occlusion and stenosis of bilateral carotid arteries (I65.23) Active confirmed Problem Carotid artery occlusion (207088003) Occlusion and stenosis of unspecified carotid artery (I65.29) Active confirmed Problem Cardiac pacemaker in situ (002312270) Presence of cardiac pacemaker (Z95.0) Active confirmed Problem Aortic valve disorder (8953968) Nonrheumatic aortic (valve) stenosis (I35.0) Active confirmed Problem Mixed hyperlipidemia (280522880) Mixed hyperlipidemia (E78.2) Active confirmed Problem Intermittent claudication of bilateral lower limbs co-occurrent and due to atherosclerosis (20529844536824251 ) Atherosclerosis of andreafski arteries of extremities with intermittent claudication, bilateral legs (I70.213) Active confirmed Problem Shortness of breath (571227768) Shortness of breath (R06.02) Active confirmed Problem Peripheral circulatory disorder associated with diabetes mellitus (441897787) 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) Active confirmed Problem Peripheral vascular disease (458800073) Other specified peripheral vascular diseases (I73.89) Active confirmed Problem Right carotid artery stenosis (130616216070180) Occlusion and stenosis of right carotid artery (I65.21) Active confirmed Problem Left carotid artery occlusion (067673264981667) Occlusion and stenosis of left carotid artery (I65.22) Active confirmed Problem Low back pain (303942969) Low back pain (M54.5) Active confirmed Problem Dizziness and giddiness (177708483) Dizziness and giddiness (R42) Active confirmed Problem Counseling about tobacco use (567739033) Tobacco abuse counseling (Z71.6) Active confirmed Problem Tobacco use (979558102) Tobacco use (Z72.0) Active confirmed Problem Counseling about tobacco use (500262925) Tobacco abuse counseling (Z71.6) Active confirmed Plan [...] Insured Coverage Start Date Coverage End Date [facility] [id number] [place] [address] [id number] Pallavi Mukherjee Self - patient is the [...]
--- OUTSIDE RECORDS SUMMARY | 2024-11-08 11:19 | XMS_ITS | Continuity of Care Document ---
Author Organization [facility] [address] [place] [address] Phone [phone] Care Team Providers Care Baggage Agent Name Role Phone Claudia York CNP Care Team Information Receive r [phone] Problems Active Problems Provider Date Osteoporosis Emanuel [...] Indications Ordering Provider Date Vitamin D (Ergocalciferol)1.25mg (62079 Ut) Capsules 1 tab by mouth every week 8caps Emanuel Cueva M.D. 06/20/2023 Lisinopril2.5mg Tablets Take 1 Tablet Orally Every Evening Unknown Clopidogrel Djvovvlob79jw Tablets Take 1 Tablet By Mouth Every Day Des Sanchez MD Amlodipine Azzqgkdq57mj Tablets Take 1 Tablet By Mouth Every Day Unknown Cwamlcoisr132xy Tablets Take 1 Tablet By Mouth 2 Times A Day For 30 Days Claudia York CNP Ferrous Ikuqnzx447(65Fe) mg Tablets Take 1 Tablet By Mouth 1 Time Each Day With Breakfast. Unknown Pramipexole Dihydrochloride0.125mg Tablets Take 2 By Mouth Daily Des Sanchez MD Ryukyswpks580hq Capsules Take 1 Capsule By Mouth Three Times A Day Unknown Sertraline GEW263oe Tablets Take 1 Tablet By Mouth Twice A Day Des Sanchez MD Metformin THY076gc Tablets Take 1 Tablet By Mouth Twice A Day Des Sancehz MD Atorvastatin Ggqqjdw93gn Tablets Take 1 Tablet By Mouth Every Day Des Sanchez MD Levothyroxine Jaaqbc936ndo Tablets Take 1 Tablet By Mouth Every Day Des Sanchez MD Vital Signs Date Vital Result Comment 06/16/2023 9:37am BP Systolic 110 mmHg BP Diastolic 70 mmHg Heart Rate 72 /min Height 64 inches 5'4 Weight 128.12 lb BMI (Body Mass Index) 22.0 kg/m2 Results Test Acquired Date Facility Test Result H/L Range N ote Basic Metabolic Panel 06/16/2023 [facility] Glucose 102 mg/dL High (70-99) BUN 24 mg/dL High (8-23) Creatinine 1.3 mg/dL High (0.5-1.0) Sodium 140 mmol/L (133-145) Potassium 5.2 mmol/L (3.6-5.2) Chloride 105 mmol/L (98-107) Bicarbonate 20 mmol/L Low (22-29) Anion Gap 15 (4-17) Calcium 10.4 mg/dL (8.6-10.5 ) Estimated GFR Creatinine 41 ML/MIN/1.7 3M2 1 25Oh Vitamin D 06/16/2023 [facility] 25Oh Vitamin D 14.9 NG/ML Low (20-50) Albumin 06/16/2023 [facility] Albumin 4.6 GM/DL (3.4-4.8) PTH, Intact 06/16/2023 [facility] PTH, Intact 102 pg/mL High (15-65) Phosphorus 06/16/2023 [facility] Phosphorus 3.6 mg/dL (2.5-4.5) [...] E11.9 Type 2 diabetes mellitus* New Labs:* Irutqve-En-Jzkrz, Ordered: 06/16/23 * Creat Clearance, Ordered: 06/16/23 * N-Telopeptide Cross Links, Urine, Ordered: 06/16/23 Functional Status Description No Information Available Mental Status Description No Information Available Referrals Description No Information Available
--- OUTSIDE RECORDS SUMMARY | 2024-11-08 11:19 | XMS_ITS | Clinical Summary ---
Author Organization [facility] Address [address] [place] [address] Phone Care Team Providers Care Restaurant Service Manager Name Role Phone Jaylen Taylor JEB Primary Care Provider [phone] Allergies Active Allergy Reactions Criticality Noted Date [...] [facility] [address] [place] [place] [address] Elia Winters MD Stage 3 [...] [facility] [address] [place] [address] Elia Winters MD [address] [address] Health Maintenance Due Date Last Done Comments Pneumococcal Vaccine: 50+ Years (3 of 3 - PCV) 09/04/2010 09/04/2009, 06/04/2002 Diabetes: Ophthalmology Exam 01/01/2022 Diabetes: Pedal Pulse Checked 01/01/2022 Diabetes: Sensory Foot Exam 01/01/2022 Diabetes: Visual Foot Exam 01/01/2022 Diabetes: Hemoglobin A1C 2022 06/28/2022, 08/0 01/2022 Influenza Vaccine (#1) 2025 , 03/11/2014, 01/20/2013, Additional history exists Pneumococcal Vaccine: [...] 10.1 8.7 - 10.7 mg/dL eGFR Non-Afr [place] 33 Total Bilirubin 0.3 MG/DL ALT (SGPT) 12 U/L AST (SGOT) 12 U/L Alkaline Phosphatase 80 U/L Hemoglobin A1C 6.0 4.0 - 6.0 12/11/2021 us Historical Provider LAB BLOOD ORDERABLES Lianet l Result from Last 3 Months or Most Recently Relevant to Health Maintenance Insurance [facility] Medicare [facility] Medicare Care Teams Restaurant Service Manager Relationship Specialty Start Date End Date Jaylen Taylor CNP [address] [place] [address] PCP - General 04/04/23
--- OUTSIDE RECORDS SUMMARY | 2024-11-08 11:19 | XMS_ITS | Clinical Summary ---
Author Organization [facility] Address [address] [place] [address] Care Team Providers Care Printing Screen Assembler Name Role Phone Landy Sutherland MD Primary Care Provider [phone] Surgical History Surgery Date Site/Laterality Comments OTHER SURGICAL HISTORY PROCEDURE: ID LAMNOTMY INCL W/DCMPRSN NRV ROOT 1 INTRSPC LUMBR; COMMENT: 3 back operations CAROTID ENDARTERECTOMY 2000 PROCEDURE: HISTORICAL CAROTID ENDART; COMMENT: right VAGINAL DELIVERY PROCEDURE: ID VAGINAL DELIVERY ONLY; COMMENT: x2 ABDOMINAL SURGERY age 22 PROCEDURE: ID UNLISTED PROCEDURE ABDOMEN PERITONEUM & OMENTUM; COMMENT: laparotomy with LSO for ruptured ectopic TONSILLECTOMY PROCEDURE: HISTORICAL TONSILLECTOMY Medical History Medical History Date Comments Esophageal reflux 03/01/2005 DX:Esophageal reflux Lumbago 03/01/2005 DX:Lumbago Thoracic aneurysm, ruptured ([facility] V24, [facility] V28) 11/12/2004 DX:Thoracic aneurysm, ruptur ed ([facility]) Peripheral vascular disease, unspecified ([facility] V24) 11/09/2004 DX:Peripheral vascular disea se, unspecified ([facility]) Other dyspnea and respirator y abnormality 11/09/2004 DX:Other dyspnea and respira tory abnormality Sciatica 09/12/2004 DX:Sciatica Sinoatrial node dysfunction ([facility] V24, [facility] V28) 01/19/2004 DX:Sinoatrial node dysfuncti on ([facility]) Cervicalgia 01/04/2004 DX:Cervicalgia Palpitations 01/04/2004 DX:Palpitations Syncope [...] with ophthalmic manifestations, not stated as uncontrolled(250.50) ([facility] V24, [facility] V28) 07/15/2012 DX:Type II or unspecified ty pe diabetes mellitus with ophthalmic manifestations, not stated as uncontrolled(250.50) ([facility]); COMMENT: Bilateral mild nuclear sclerosis. Type II or unspecified type diabetes mellitus with renal manifestations, not stated as uncontrolled(250.40) ([facility] V24, [facility] V28) 08/07/2007 DX:Type II or unspecified t ype diabetes mellitus with renal manifestations, not stated as uncontrolled(250.40) ([facility]); COMMENT: 07/10--Ogtt neg Intol Lisinopril CKD stage [...] DX:Weight loss Pacemaker DX:Pacemaker Peripheral vascular disease ([facility] V24) DX:Peripheral vascular disea se ([facility]) Family History Medical History Relation Name Comments [...] age to complete this topic Care Teams Printing Screen Assembler Relationship Specialty Start Date End Date Landy Sutherland MD PCP - General 05/24/22
== END 2024-11-08 10:59 | disposition home or self-care (01) ==
LOC: HO.HMCFM 10:28
PROVIDERS: PCP Nurse Practitioner Family; Visit Provider Nurse Practitioner Family
DX: I10 Essential (primary) hypertension (principal); F41.9 Anxiety disorder, unspecified; F32.A Depression, unspecified; M54.2 Cervicalgia; G89.29 Other chronic pain

== ENCOUNTER → 2024-11-08 10:27 | Outpatient (BNVA) | payer MEDICARE, SELFPAY | PROVIDERS: PCP Nurse Practitioner Family; Visit Provider Nurse Practitioner Family | DX: I10 Essential (primary) hypertension (principal); F41.9 Anxiety disorder, unspecified; F32.A Depression, unspecified; M54.2 Cervicalgia; G89.29 Other chronic pain; R01.1 Cardiac murmur, unspecified | CPT/HCPCS: 96127; 99212 ==

== ENCOUNTER → 2024-12-06 23:59 | Outpatient (BNV) | payer MEDICARE, SELFPAY ==
--- NOTE | 2024-12-08 14:38 | MHC.OFFVIS ---
Intake Visit Reasons: Remote device check- Biotronik Allergies acetaminophen (From Percocet) Allergy (Intermediate, Verified 11/08/24 10:45) Itching oxycodone (From Percocet) Allergy (Intermediate, Verified 11/08/24 10:45) Itching Seasonal Allergies Allergy (Intermediate, Verified 11/08/24 10:45) Itchy Eyes ibuprofen (From Motrin) Allergy (Unknown, Verified 11/08/24 10:45) Swelling wheat Adverse Reaction (Unknown, Verified 11/08/24 10:45) Diarrhea lactose Adverse Reaction (Verified 11/08/24 10:45) Diarrhea PFSH Medical History Screening for lung cancer Colon cancer screening Normal physical examination, routine Viral upper respiratory illness Laboratory tests ordered as part of a complete physical exam (CPE) Cardiac pacemaker in situ Runny nose Smoking 1/2 pack a day or less SOB (shortness of breath) on exertion Smoking greater than 30 pack years Diarrhea Osteopenia Breast cancer screening Chronic diarrhea Skin tear of left upper arm without complication Aortic stenosis Restless leg syndrome No pertinent family history Hyperlipidemia Chronic back pain Osteoarthritis GERD (gastroesophageal reflux disease) Anxiety and depression Type 2 diabetes mellitus Hypertension CKD (chronic kidney disease) stage 3, GFR 30-59 ml/min Hypothyroidism Cataracts, bilateral COPD (chronic obstructive pulmonary disease) Deafness in right ear Stroke Surgical History History of esophagogastroduodenoscopy (EGD) H/O colonoscopy History of tonsillectomy History of appendectomy H/O: hysterectomy History of back surgery H/O thyroidectomy H/O endarterectomy S/P cardiac pacemaker procedure Family History Mother Bladder cancer Brother Bladder cancer Social History Household Members: Children Housing: House Do you presently have visiting nurse or other home services: No Alcohol intake: never Patient Tobacco Use Status: Current everyday Tobacco user Tobacco use type: Cigarette Cigarette Packs Per Day: 0.25 Cigarettes Per Day: 3 Years Smoked: 70 e-Cigarette/Vaping Use: Currently Using Second Hand Smoke Exposure: No Substance Use Type: Marijuana service: No Current occupational status: retired Current occupational exposures/hazards: No Cognitive needs: No Hearing needs: No Vision needs: No Office Procedures Cardiac Device Check Cardiac Device Check Details: Remote pacemaker report generated 12/06/2024. Pacemaker function is adequate [id number] Cardiac Device Interrogation, pacemaker Procedure code (CPT) selection complete Assessment & Plan Assessment & Plan (1) Cardiac pacemaker in situ: Comment: Biotronik dual-chamber pacemaker in place, placed in 2016 Code(s): Z95.0 - Presence of cardiac pacemaker Category: Medical Plan: See above Coding Level of Care Code Procedure Only Diagnoses Cardiac pacemaker in situ Z95.0 CPT Codes Cardiac Device Check - Cardiac Device 12: [id number] Cardiac Device Interrogation, pacemaker ([id number])
== END ==
PROVIDERS: PCP Nurse Practitioner Family; Visit Provider Internal Medicine Cardiovascular Disease
DX: Z45.018 Encounter for adjustment and management of other part of cardiac pacemaker (principal)
CPT/HCPCS: 93294

== ENCOUNTER 2024-12-14 10:45 | Outpatient (AMB) | payer MEDICARE, SELFPAY ==
--- NOTE | 2024-12-14 11:01 | MHC.PC.OV ---
Vital Signs 12/14/24 11:07 Height 5 ft 4 in Weight 116 lb 6 oz BMI 20.0 BP 118/68 Blood Pressure Location Rt brachial Position Sitting Respiration 16 Pulse 81 Pulse Source Pulse Oximeter Temp 98.0 F Temp Source Temporal Artery Scan Pulse Oximetry (%) 93 Oxygen Delivery Method Room Air Intake Visit Reasons: discharged form [facility] on 12/05,\ Intake Note: Pallavi presents in the office today for a hospital discharge. Allergies acetaminophen (From Percocet) Allergy (Intermediate, Verified 12/14/24 11:19) Itching oxycodone (From Percocet) Allergy (Intermediate, Verified 12/14/24 11:19) Itching Seasonal Allergies Allergy (Intermediate, Verified 12/14/24 11:19) Itchy Eyes ibuprofen (From Motrin) Allergy (Unknown, Verified 12/14/24 11:19) Swelling wheat Adverse Reaction (Unknown, Verified 12/14/24 11:19) Diarrhea lactose Adverse Reaction (Verified 12/14/24 11:19) Diarrhea Medication List - Last Reconciled 12/14/24 by Jaylen Taylor CNP amlodipine 5 mg PO DAILY atorvastatin 80 mg PO BEDTIME clopidogrel 75 mg PO DAILY 30 days ezetimibe 10 mg PO DAILY gabapentin 600 mg PO BID 30 days ipratropium-albuterol 0.5 mg-3 mg(2.5 mg base)/3 mL 3 mL inhalation Q6H PRN levothyroxine 125 mcg PO DAILY 30 days lisinopril 10 mg PO DAILY 30 days metoprolol succinate ER 50 mg PO DAILY 30 days pramipexole 0.25 mg (2 x 0.125 mg) PO BEDTIME sertraline 100 mg PO DAILY 90 days Tobacco use date assessed: 12/14/24 Fall risk assessment: 1 Fall in past year Last assessed Fall Risk: 12/14/24 Dental Screening Dental Screen Date: 12/14/24 Did you have a dental visit in the last 12 months?: No Did you have a dental problem in the last 6 months where you did not have access to dental care?: No Was dental information given to patient?: Patient has dentist HPI HPI Comments History of Present Illness Details 79-year-old female presents for hospital discharge follow-up. She was admitted at [facility] between 12/01/2024 and 12/05/2024. She presented in the ED for worsening shortness of breath, cough, and chest congestion. She was found to be hypertensive; however, she did not take her home medications that morning. She was also hypoxic. She was diagnosed with CHF. Potassium level was also elevated but near normal, 5.7, before discharge. Blood pressure also improved prior to discharge. She was discharged home on oxygen, Lasix 20 mg daily, amlodipine 5 mg twice daily, and nicotine patches and gums. Lisinopril was discontinued. She was advised to perform repeat CBC, CMP, magnesium, and phosphorus in 12/09/2024 and to follow-up with PCP. She notes that she has been feeling well since discharged from the hospital. She has been taking her medications as prescribed. She has been using her supplemental oxygen intermittently. Visiting continues to see her 3 days weekly. She notes that quit smoking 1 week before she her recently hospitalization due to worsening sob. She smoked half a pack of cigarettes daily. She requests and order for nicotine patch which she notes were not prescribed upon recent hospital discharge. She reports intermittent shortness of breath and no shortness a breath at this time. [facility] Medical History (Updated 12/14/24 @ 12:13 by Jaylen Taylor CNP) Screening for lung cancer Colon cancer screening Normal physical examination, routine Viral upper respiratory illness Laboratory tests ordered as part of a complete physical exam (CPE) Cardiac pacemaker in situ Runny nose Smoking 1/2 pack a day or less SOB (shortness of breath) on exertion Smoking greater than 30 pack years Diarrhea Osteopenia Breast cancer screening Chronic diarrhea Skin tear of left upper arm without complication Aortic stenosis Restless leg syndrome No pertinent family history Hyperlipidemia Chronic back pain Osteoarthritis GERD (gastroesophageal reflux disease) Anxiety and depression Type 2 diabetes mellitus Hypertension CKD (chronic kidney disease) stage 3, GFR 30-59 ml/min Hypothyroidism Cataracts, bilateral COPD (chronic obstructive pulmonary disease) Deafness in right ear Stroke Surgical History History of esophagogastroduodenoscopy (EGD) H/O colonoscopy History of tonsillectomy History of appendectomy H/O: hysterectomy History of back surgery H/O thyroidectomy H/O endarterectomy S/P cardiac pacemaker procedure Family History Mother Bladder cancer Brother Bladder cancer Social History (Updated 12/14/24 @ 11:06 by Kimi Villa MA) Household Members: Children Housing: House Do you presently have visiting nurse or other home services: No Alcohol intake: never Patient Tobacco Use Status: Former Tobacco user Tobacco use type: Cigarette Cigarette Packs Per Day: 0.25 Cigarettes Per Day: 3 Years Smoked: 70 Packs Per Year: 18 Packs per year/per ci.50 e-Cigarette/Vaping Use: Former Use Second Hand Smoke Exposure: No Use of substances other than those prescribed or required for medical reasons: Yes Substance Use Type: Marijuana service: No Current occupational status: retired Current occupational exposures/hazards: No Cognitive needs: No Hearing needs: No Vision needs: No Questionnaire PHQ-9 Over the last 2 weeks, how often have you been bothered by any of the following problems? 1. Little interest or pleasure in doing things: several days 2. Feeling down, depressed, or hopeless: several days 3. Trouble falling or staying asleep, or sleeping too much: several days 4. Feeling tired or having little energy: more than half the days 5. Poor appetite or overeating: several days 6. Feeling bad about yourself - or that you are a failure or have let yourself or your family down: not at all 7. Trouble concentrating on things, such as reading the newspaper or watching television: several days 8. Moving or speaking so slowly that other people could have noticed. Or the opposite - being so fidgety or restless that you have been moving around a lot more than usual: several days 9. Thoughts that you would be better off or of hurting yourself in some way: not at all Total score: 8 Depression Screening Interpretation: Positive Depression Screening Follow-up: Existing condition and In treatment Depression Screening Done: Yes 16024 - PHQ-9 Billing: Yes Source: Developed by Drs. Bonifacio Bethea, Danni Villa, Rico Wilcox and colleagues, with an educational saranya from [employer]. Thrive Questionnaire Date Thrive assessed: 12/14/24 I am a: Patient What is your living situation today?: I have a steady place to live Within the past 12 months, did the food you bought not last and you didn't have the money to get more?: Never true Within the past 12 months, did you worry whether your food would run out before you got money to buy more?: Never true Do you have trouble paying for medicines?: Yes Do you have trouble getting transportation to medical appointments?: No Do you have trouble paying your heating and electricity bill?: No Do you have trouble taking care of your child, family member or friend?: No Do you have trouble with day-to-day activities such as bathing, preparing meals, shopping, managing finances, etc.?: No Are you currently unemployed and looking for a job?: No Are you interested in more education?: No Please select the resources that you would like help with: None Currently or been in a relationship where the following occur: No concerns reported THRIVE Score: 0 AUDIT C Alcohol Use Questionnaire (AUDIT-C) 1. How often do you have a drink containing alcohol?: Never 3. How often do you have six or more drinks on one occasion?: Never Total Score: 0 MARCELA-7 AMB Questionnaire MARCELA-7 Date MARCELA - 7 assessed: 11/08/24 Feeling nervous, anxious, or on edge: 1 = Several days Not being able to stop or control worryin = Not at all Worrying too much about different things: 0 = Not at all Trouble relaxin = Nearly every day Being so restless that it is hard to sit still: 1 = Several days Becoming easily annoyed or irritable: 0 = Not at all Feeling afraid as if something awful might happen: 0 = Not at all Total MARCELA-7 score (0-4 normal; 5-9 mild; 10-14 moderate; 15-21 severe): 5 Source: Developed by Drs. Bonifacio Bethea, Danni Villa, Rico Wilcox and colleagues, with an educational saranya from [employer]. MARCELA-7 Assessment Billing MARCELA-7 Assessment Tool: MARCELA-7 Assessment 61720 Review of Systems Const Details: Const Denies chills, Denies fatigue, Denies fever(s), Denies headache(s) and Denies weakness ENT Denies dizziness and Denies headache(s) Card Denies chest pain, Denies lightheadedness, Denies dyspnea and Denies other (Palpitations) Resp Denies cough, Denies dyspnea, Denies wheezing and Denies other ( shortness of breath) GI Denies abdominal pain, Denies melena, Denies hematochezia, Denies change in bowel habits, Denies dyspepsia and Denies nausea Denies hematuria and Denies dysuria Musc Denies abnormal gait, Denies myalgias, Denies arthralgias, Denies numbness and Denies tingling Skin/Breast Denies rash, Denies unusual bruising and Denies wounds Neuro Denies abnormal gait, Denies dizziness, Denies headache(s), Denies memory loss, Denies numbness, Denies Sensory deficit (Neuro), Denies tingling and Denies weakness Psych Denies anxiety, Denies depression, Denies memory loss Endo Denies cold intolerance, Denies fatigue, Denies heat intolerance, Denies polydipsia and Denies polyuria Aller/Immun Denies wheezing Physical exam (Primary Care) Vital Signs: Last Vital Signs Temp 98.0 F 12/14/24 11:07 Pulse 81 12/14/24 11:07 Resp 16 12/14/24 11:07 BP 118/68 12/14/24 11:07 Pulse Ox 93 12/14/24 11:07 Oxygen Delivery Method Room Air 12/14/24 11:07 BMI result Body Mass Index 20.0 Tobacco/Smoking Status: Tobacco use Status Tobacco use date assessed 12/14/24 12/14/24 11:06 Patient Tobacco Use Status Former Tobacco user 12/14/24 11:06 Tobacco use type Cigarette 12/14/24 11:06 e-Cigarette/Vaping Use Former Use 12/14/24 11:06 PHQ-9: PHQ-9 Score PHQ-9: Total score 8 12/14/24 12:04 Depression Screening Interpretation: Positive Depression Screening Follow-up: Existing condition and In treatment Thrive Assessment: Date of Thrive Assessment Date Thrive assessed 12/14/24 12/14/24 11:12 Currently or been in a relationship where the following occur: No concerns reported Const Other: General: no acute distress and well developed Nutritional Appearance: well nourished Orientation/consciousness: patient oriented x3 HENMT Head: Yes normocephalic and Yes atraumatic Eyes General: appearance normal, both eyes and all related structures Pupils: Equal, round and reactive pupils present EOM: EOMs intact bilaterally Resp Effort & Inspection: normal respiratory effort Auscultation: clear to auscultation bilaterally Cardio Rate: regular rate Rhythm: regular rhythm Heart sounds: S1 normal heart sound present, S2 normal heart sound present, no gallops, positive murmurs and no rubs GI Palpation (GI): No Abdominal aortic bruit present, Soft to palpation, nontender, No hepatosplenomegaly present and No Rebound tenderness present Auscultation: normal bowel sounds General: Yes no CVA tenderness Back/Spine/Pelvis Back: no CVA tenderness Cervical Spine: cervical ROM normal and No Cervical spine tenderness Thoracic/Lumbar Spine: thoraco-lumbar ROM normal, No pain with thoraco-lumbar ROM, No thoracic spinal tenderness and No lumbar spinal tenderness Extrem General: Yes normal to inspection, No edema and No calf tenderness Skin General: warm and dry. Normal skin color. Normal skin turgor Neuro General: patient oriented x3, gait normal and no focal neuro deficit Cranial nerves: Yes Equal, round and reactive pupils present Cognition (Neuro): normal cognition Gait exam (Neuro): Normal gait present Sensory Exam: No Sensory deficit (Neuro) Psych Appearance: grossly normal Affect: normal affect Attitude: cooperative Thought process: Normal thought process present Coding Level of Care Code Est Pt Level 4 (97771) Diagnoses Hospital discharge follow-up Z09 Primary hypertension I10 Hypertension type: primary hypertension Additional Codes MARCELA-7 Assessment Billing - MARCELA-7 Assessment Tool: MARCELA-7 Assessment 12434 ([id number]) PHQ-9 - 99856 - PHQ-9 Billing: Yes ([id number]) Assessment & Plan Assessment & Plan (1) Hospital discharge follow-up: Code(s): Z09 - Encounter for follow-up examination after completed treatment for conditions other than malignant neoplasm Category: Medical Plan: 79-year-old female presents for hospital discharge follow-up. She was admitted at [facility] between 12/01/2024 and 12/05/2024. She presented in the ED for worsening shortness of breath, cough, and chest congestion. She was found to be hypertensive; however, she did not take her home medications that morning. She was also hypoxic. She was diagnosed with CHF. Potassium level was also elevated but near normal, 5.4, before discharge. Blood pressure also improved prior to discharge. She was discharged home on oxygen, Lasix 20 mg daily, amlodipine 5 mg twice daily, and nicotine patches and gums. Lisinopril was discontinued. She was advised to perform repeat CBC, CMP, magnesium, and phosphorus in 12/09/2024 and to follow-up with PCP. She notes that she has been feeling well since discharged from the hospital. She has been taking her medications as prescribed. She has been using her supplemental oxygen intermittently. Visiting continues to see her 3 days weekly. She notes that quit smoking 1 week before she her recently hospitalization due to worsening sob. She smoked half a pack of cigarettes daily. She requests and order for nicotine patch which she notes were not prescribed upon recent hospital discharge. She reports intermittent shortness of breath and no shortness a breath at this time. Medications reconciled. Advised to continue current treatment regimen. Nicotine patch as prescribed and continued smoking cessation encouraged. Encouraged to use supplemental oxygen as prescribed. Advised to perform repeat CBC, CMP, magnesium, and phosphorus as ordered. Fast for 10-12 hours, may drink water, before blood work. Will review results and make changes as needed. Follow-up with PCP as scheduled. Return sooner with symptoms or concerns. Verbalized understanding and agreed with the plan. (2) Hypertension: Code(s): I10 - Essential (primary) hypertension Category: Medical Qualifiers: Hypertension type: primary hypertension Qualified Code(s): I10 - Essential (primary) hypertension Plan: Resting blood pressure is 118/68, within goal of less than 130/80. Continue current treatment regimen. Low-sodium diet encouraged. Follow-up as scheduled. Verbalized understanding and agreed with the plan. Orders: Orders Complete Blood Count Auto Diff Today Z09 - Encounter for follow-up examination after completed treatment for conditions other than malignant neoplasm Comprehensive [place]. Panel Fast Today Z09 - Encounter for follow-up examination after completed treatment for conditions other than malignant neoplasm Magnesium Today Z09 - Encounter for follow-up examination after completed treatment for conditions other than malignant neoplasm Lipid Panel Today Z09 - Encounter for follow-up examination after completed treatment for conditions other than malignant neoplasm Phosphorus Today Z09 - Encounter for follow-up examination after completed treatment for conditions other than malignant neoplasm Medications: New aspirin 81 mg PO DAILY 30 tabs 0RF cetirizine (Allergy Relief (cetirizine)) 10 mg PO DAILY 30 caps 0RF furosemide (Lasix) 20 mg PO DAILY 30 tabs 0RF gabapentin 600 mg PO BID 30 tabs 0RF cyanocobalamin (vitamin B-12) 1,000 mcg PO DAILY 30 tabs 0RF nicotine Apply 14 mg patch daily x6 weeks, then apply 7 mg patch daily x2 weeks 1 patch transdermal Q24H 56 ea 0RF famotidine 20 mg PO DAILY 30 tabs 0RF ferrous sulfate (Iron (ferrous sulfate)) 325 mg PO DAILY 30 tabs 0RF Changed From amlodipine 5 mg PO DAILY To amlodipine 5 mg PO BID
[2024-12-14 11:07] VITALS: BP 118/68; PULSE 81; RESP 16; TEMP 36.7; O2SAT 93
--- OUTSIDE RECORDS SUMMARY | 2024-12-14 11:53 | XMS_ITS | Clinical Summary ---
Author Organization [facility] Address [address] [place] [phone] Phone Care Team Providers Care Sweatband Shaper Name Role Phone Jaylen Taylor JEB Primary Care Provider [phone] Allergies Active Allergy Reactions Criticality Noted Date [...] day Do not crush or chew. Active Active Problems Problem Noted Date Diagnosed [...] Visit [facility] [place] [address] [place] [phone] Elia Winters MD Stage 3 [...] Visit [facility] [address] [place] [phone] Elia Winters MD [address] [phone] Health Maintenance Due Date Last Done Comments Pneumococcal Vaccine: 50+ Years (3 of 3 - PCV) 09/04/2010 09/04/2009, 06/04/2002 Diabetes: Ophthalmology Exam 01/01/2022 Diabetes: Pedal Pulse Checked 01/01/2022 Diabetes: Sensory Foot Exam 01/01/2022 Diabetes: Visual Foot Exam 01/01/2022 Diabetes: Hemoglobin A1C 2022 06/28/2022, 08/0 01/2022 Influenza Vaccine (#1) 2025 2, 03/11/2014, 01/20/2013, Additional history exists Pneumococcal Vaccine: [...] 10.1 8.7 - 10.7 mg/dL eGFR Non-Afr [place] 33 Total Bilirubin 0.3 MG/DL ALT (SGPT) 12 U/L AST (SGOT) 12 U/L Alkaline Phosphatase 80 U/L Hemoglobin A1C 6.0 4.0 - 6.0 12/11/2021 us Historical Provider LAB BLOOD ORDERABLES Lianet l Result from Last 3 Months or Most Recently Relevant to Health Maintenance Insurance [facility] Medicare [facility] Medicare Care Teams Sweatband Shaper Relationship Specialty Start Date End Date Jaylen Taylor CNP [address] [place] [address] PCP - General 04/04/23
--- OUTSIDE RECORDS SUMMARY | 2024-12-14 11:53 | XMS_ITS | Clinical Summary ---
Author Organization [facility] ity Address [address] [place] [address] Care Team Providers Care Hr Generalist Name Role Phone Landy Sutherland MD Primary Care Provider [phone] Surgical History Surgery Date Site/Laterality Comments OTHER SURGICAL HISTORY PROCEDURE: [place] LAMNOTMY INCL W/DCMPRSN NRV ROOT 1 INTRSPC LUMBR; COMMENT: 3 back operations CAROTID ENDARTERECTOMY 2000 PROCEDURE: HISTORICAL CAROTID ENDART; COMMENT: right VAGINAL DELIVERY PROCEDURE: [place] VAGINAL DELIVERY ONLY; COMMENT: x2 ABDOMINAL SURGERY age 22 PROCEDURE: ND UNLISTED PROCEDURE ABDOMEN PERITONEUM & OMENTUM; COMMENT: laparotomy with LSO for ruptured ectopic TONSILLECTOMY PROCEDURE: HISTORICAL TONSILLECTOMY Medical History Medical History Date Comments Esophageal reflux 03/01/2005 DX:Esophageal reflux Lumbago 03/01/2005 DX:Lumbago Thoracic aneurysm, ruptured ([facility]24, [facility] V28) 11/12/2004 DX:Thoracic aneurysm, ruptur ed ([facility]) Peripheral vascular disease, unspecified ([facility] V24) 11/09/2004 DX:Peripheral vascular disea se, unspecified ([facility]) Other dyspnea and respirator y abnormality 11/09/2004 DX:Other dyspnea and respira tory abnormality Sciatica 09/12/2004 DX:Sciatica Sinoatrial node dysfunction ([facility] V24, [facility] V28) 01/19/2004 DX:Sinoatrial node dysfuncti on ([facility]) Cervicalgia 01/04/2004 DX:Cervicalgia Palpitations 01/04/2004 DX:Palpitations [...] with ophthalmic manifestations, not stated as uncontrolled(250.50) ([facility] V24, [facility] V28) 07/15/2012 DX: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 Type II or unspecified type diabetes mellitus with renal manifestations, not stated as uncontrolled(250.40) ([facility] V24, [facility] V28) 08/07/2007 DX:Type II or unspecified t ype diabetes mellitus with renal manifestations, not stated as uncontrolled(250.40) ([facility]); COMMENT: 07/10--Ogtt neg Intol Lisinopril [...] DX:Weight loss Pacemaker DX:Pacemaker Peripheral vascular disease ([facility] V24) DX:Peripheral vascular disea se ([facility]) Family History Medical History Relation Name [...] Cancer Screening: Stool Based Tests (FOBT/FIT) 04/07/2022 Falls Risk Assessment 04/07/2022 Medicare Annual Wellness Visit 04/07/2022 Osteoporosis Screening (Bone Density Screening) 04/07/2022 Social Influencers of Health Screening 04/07/2022 Hypertension/CHF/CAD Annual BMP Blood Test 04/14/2022 Diabetes: Annual Urine Albumin-Creatinine Ratio (uACR) 04/18/2022 Diabetes: Blood Sugar Control Test (HGBA1C) 04/18/2022 COVID-19 Vaccine ( season) 2024 Depression Screening 05/05/2024 Influenza Vaccine (#1) 2025 2, 03/11/2014, 01/20/2013, [...] age to complete this topic Care Teams Hr Generalist Relationship Specialty Start Date End Date Landy Sutherland MD PCP - General 05/24/22
--- OUTSIDE RECORDS SUMMARY | 2024-12-14 11:53 | XMS_ITS | Continuity of Care Document ---
Author Organization [facility] [address] [place] [address] Phone [phone] Care Team Providers Care Insurance Solicitor Name Role Phone Claudia York CNP Care Team Information Receive r [phone] Problems Active Problems Provider Date Osteoporosis Emanuel [...] Indications Ordering Provider Date Vitamin D (Ergocalciferol)1.25mg (42172 Ut) Capsules 1 tab by mouth every week 8caps Emanuel Cueva M.D. 06/20/2023 Lisinopril2.5mg Tablets Take 1 Tablet Orally Every Evening Unknown Clopidogrel Nqfwonobm35nr Tablets Take 1 Tablet By Mouth Every Day Des Sanchez MD Amlodipine Czcdjslc43zq Tablets Take 1 Tablet By Mouth Every Day Unknown Aeanuytpbg936at Tablets Take 1 Tablet By Mouth 2 Times A Day For 30 Days Claudia York CNP Ferrous Xaixfbq206(65Fe) mg Tablets Take 1 Tablet By Mouth 1 Time Each Day With Breakfast. Unknown Pramipexole Dihydrochloride0.125mg Tablets Take 2 By Mouth Daily Des Sanchez MD Ndxvugjviv618to Capsules Take 1 Capsule By Mouth Three Times A Day Unknown Sertraline VBB527mb Tablets Take 1 Tablet By Mouth Twice A Day Des Sanchez MD Metformin RPH072yw Tablets Take 1 Tablet By Mouth Twice A Day Des Sanchez MD Atorvastatin Azsnnqj58em Tablets Take 1 Tablet By Mouth Every Day Des Sanchez MD Levothyroxine Fdsjei800vdx Tablets Take 1 Tablet By Mouth Every Day Des Sanchez MD Vital Signs Date Vital Result Comment 06/16/2023 9:37am BP Systolic 110 mmHg BP Diastolic 70 mmHg Heart Rate 72 /min Height 64 inches 5'4 Weight 128.12 lb BMI (Body Mass Index) 22.0 kg/m2 Results Test Acquired Date Facility Test Result H/L Range N ote Basic Metabolic Panel 06/16/2023 [facility] Glucose 102 mg/dL High (70-99) BUN 24 mg/dL High (8-23) Creatinine 1.3 mg/dL High (0.5-1.0) Sodium 140 mmol/L (133-145) Potassium 5.2 mmol/L (3.6-5.2) Chloride 105 mmol/L (98-107) Bicarbonate 20 mmol/L Low (22-29) Anion Gap 15 (4-17) Calcium 10.4 mg/dL (8.6-10.5 ) Estimated GFR Creatinine 41 ML/MIN/1.7 3M2 1 25Oh Vitamin D 06/16/2023 [facility] 25Oh Vitamin D 14.9 NG/ML Low (20-50) Albumin 06/16/2023 [facility] Albumin 4.6 GM/DL (3.4-4.8) PTH, Intact 06/16/2023 [facility] PTH, Intact 102 pg/mL High (15-65) Phosphorus 06/16/2023 [facility] Phosphorus 3.6 mg/dL (2.5-4.5) [...] E11.9 Type 2 diabetes mellitus* New Labs:* [id number]-[id number], Ordered: 06/16/23 * Creat Clearance, Ordered: 06/16/23 * N-Telopeptide Cross Links, Urine, Ordered: 06/16/23 Functional Status Description No Information Available Mental Status Description No Information Available Referrals Description No Information Available
--- OUTSIDE RECORDS SUMMARY | 2024-12-14 11:53 | XMS_ITS | Patient Health Record ---
Author Organization [facility] Address [address] [place] [address] Care Team Providers Care Carpet Repairer Name Role Phone Oscar Alicia MD Primary Care Provider Prashant Sibley Unavailable [phone] Allergies Allergen (clinical drug ingredient) Drug/Non Drug [...] on an empty stomach Orally Once a day; Duration: 30 day(s) Active glipiZIDE ER 10 MG 1 tablet with breakf ast Orally Once a day; Duration: 30 day(s) Active Gabapentin 300 MG 1 capsule Orally Onc e a day; Duration: 30 day(s) Active Allopurinol 300 MG 1 tablet Orally Once a day; Duration: 30 day(s) Active Pramipexole Dihydrochloride 0.125 MG 1 tablet Orally Once a day; Duration: 30 day(s) Active Omeprazole 20 MG 1 capsule 30 minutes before morning meal Orally Once a day; Duration: 30 day(s) Active Cilostazol 100 MG 1 tablet 30 minutes before or 2 hours after breakfast and dinner Orally Twice a day; Duration: 90 days Active metFORMIN HCl 500 MG 1 tablet with a haris l Orally Once a day; Duration: 30 day(s) Active Meloxicam 15 MG 1 tablet Orally Once a day; Duration: 30 day(s) Active Sertraline HCl 100 MG 1/2 tablet Orally Once a day Active Aspirin Adult Low Dose 81 MG 1 tablet Or ally Once a day; Duration: 30 day(s) Active Atorvastatin Calcium 40 MG 1 tablet Oral ly Once a day at bedtime; Duration: 90 days Active amLODIPine Besylate 5 MG 1 tablet Orally Once a day; Duration: 30 day(s) Active Social History Tobacco Use: [...] Problem Status W/U Status Risk Notes Problem Information temporarily unavailable Essential (primary) hypertension (I10) Active confirmed Problem Information temporarily unavailable Nonrheumatic aortic (valve) stenosis (I35.0) Active confirmed Problem Information temporarily unavailable Cerebrovascular disease, unspecified (I67.9) Active confirmed Problem Information temporarily unavailable Other obesity due to excess calories (E66.09) Active confirmed Problem Information temporarily unavailable Sick sinus syndrome (I49.5) Active confirmed Problem Information temporarily unavailable Occlusion and stenosis of bilateral carotid arteries (I65.23) Active confirmed Problem Information temporarily unavailable Occlusion and stenosis of unspecified carotid artery (I65.29) Active confirmed Problem Information temporarily unavailable Presence of cardiac pacemaker (Z95.0) Active confirmed Problem Information temporarily unavailable Nonrheumatic aortic (valve) stenosis (I35.0) Active confirmed Problem Information temporarily unavailable Mixed hyperlipidemia (E78.2) Active confirmed Problem Information temporarily unavailable Atherosclerosis of [place] arteries of extremities with intermittent claudication, bilateral legs (I70.213) Active confirmed Problem Information temporarily unavailable Shortness of breath (R06.02) Active confirmed Problem Information temporarily unavailable 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) Active confirmed Problem Information temporarily unavailable Other specified peripheral vascular diseases (I73.89) Active confirmed Problem Information temporarily unavailable Occlusion and stenosis of right carotid artery (I65.21) Active confirmed Problem Information temporarily unavailable Occlusion and stenosis of left carotid artery (I65.22) Active confirmed Problem Information temporarily unavailable Low back pain (M54.5) Active confirmed Problem Information temporarily unavailable Dizziness and giddiness (R42) Active confirmed Problem Information temporarily unavailable Tobacco abuse counseling (Z71.6) Active confirmed Problem Information temporarily unavailable Tobacco use (Z72.0) Active confirmed Problem Information temporarily unavailable Tobacco abuse counseling (Z71.6) Active confirmed Plan [...] Insured Coverage Start Date Coverage End Date [facility] [address] [place] [address] [id number] Pallavi Mukherjee Self - patient is the [...] carotid endarterectomy 2000 Back surgery 2005 Thyroidectomy 2011 Permanent pacemaker 2015 Right internal carotid artery stent 01/18 Left internal carotid artery stent 03/02
--- OUTSIDE RECORDS SUMMARY | 2024-12-14 11:53 | XMS_ITS | Encounter Summary ---
Author Organization [facility] Address [address] [place] [address] Phone Care Team Providers Care Cnc Lathe Machine Operator Name Role Phone Des Sanchez MD Primary Care Provider [phone] Encounter Details Date Type Department Care Team (Late st Contact Info) Description 01/05/2022 Procedure Pass [facility], Ct Scan - [address] [address] Social History Tobacco Use Types Packs/Day Years Used Date Smoking Tobacco: Every Day Cigarettes Alcohol Use Standard Drinks/Week Comments Not Currently 0 (1 standard drink = 0.6 oz pur e alcohol) Comments Unknown Sex and Gender Information Value Date Recorded Sex Assigned at Female 11/22/2021 6:19 PM EDT Legal Sex Female 6:07 PM EDT Gender Identity Female 11/22/2021 6:19 PM EDT Sexual Orientation Not on file documented as of this encounter Functional Status * Calculated C-SSRS Risk Score (Lifetime/Recent) Answer Date of Assessment Author No Risk Indicated 01/05/2022 6:33 PM EDT Cici Burgos RN * [place] Suicide Severity Rating Scale (Screener/Recent Self-Report) Question Answer Date of Assessment Author 1. Wish to be (Past 1 Month) No 01/05/2022 6:33 PM EDT Cici Burgos RN 2. Non-Specific Active Suici laine Thoughts (Past 1 Month) No 01/05/2022 6:33 PM EDT Akiko Burgos RN 6. 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 It is not the complete legal health record.[facility]
== END 2024-12-14 12:37 | disposition home or self-care (01) ==
LOC: HO.HMCFM 10:46
PROVIDERS: PCP Nurse Practitioner Family; Visit Provider Nurse Practitioner Family
DX: Z09 Encounter for follow-up examination after completed treatment for conditions other than malignant neoplasm (principal); I10 Essential (primary) hypertension

== ENCOUNTER → 2024-12-14 10:45 | Outpatient (BNVA) | payer MEDICARE, SELFPAY | PROVIDERS: PCP Nurse Practitioner Family; Visit Provider Nurse Practitioner Family | DX: Z09 Encounter for follow-up examination after completed treatment for conditions other than malignant neoplasm (principal); Z13.31 Encounter for screening for depression; I10 Essential (primary) hypertension | CPT/HCPCS: 96127; 99212 ==

== ENCOUNTER 2024-12-15 09:55 | Outpatient (REF) | payer MEDICARE, SELFPAY ==
--- OUTSIDE RECORDS SUMMARY | 2024-12-15 10:35 | XMS_ITS | Clinical Summary ---
Author Organization [facility] ity Address [address] [place] [address] Care Team Providers Care Surface Water Technician Name Role Phone Landy Sutherland MD Primary Care Provider [phone] Surgical History Surgery Date Site/Laterality Comments OTHER SURGICAL HISTORY PROCEDURE: [place] LAMNOTMY INCL W/DCMPRSN NRV ROOT 1 INTRSPC LUMBR; COMMENT: 3 back operations CAROTID ENDARTERECTOMY 2000 PROCEDURE: HISTORICAL CAROTID ENDART; COMMENT: right VAGINAL DELIVERY PROCEDURE: [place] VAGINAL DELIVERY ONLY; COMMENT: x2 ABDOMINAL SURGERY age 22 PROCEDURE: [place] UNLISTED PROCEDURE ABDOMEN PERITONEUM & OMENTUM; COMMENT: laparotomy with LSO for ruptured ectopic TONSILLECTOMY PROCEDURE: HISTORICAL TONSILLECTOMY Medical History Medical History Date Comments Esophageal reflux 03/01/2005 DX:Esophageal reflux Lumbago 03/01/2005 DX:Lumbago Thoracic aneurysm, ruptured ([facility], [facility]28) 11/12/2004 DX:Thoracic aneurysm, ruptur ed ([facility]) Peripheral vascular disease, unspecified ([facility] V24) 11/09/2004 DX:Peripheral vascular disea se, unspecified ([facility]) Other dyspnea and respirator y abnormality 11/09/2004 DX:Other dyspnea and respira tory abnormality Sciatica 09/12/2004 DX:Sciatica Sinoatrial node dysfunction ([facility] V24, [facility] V28) 01/19/2004 DX:Sinoatrial node dysfuncti on ([facility]) Cervicalgia 01/04/2004 DX:Cervicalgia Palpitations 01/04/2004 DX:Palpitations [...] with ophthalmic manifestations, not stated as uncontrolled(250.50) ([facility] V24, [facility] V28) 07/15/2012 DX: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 Type II or unspecified type diabetes mellitus with renal manifestations, not stated as uncontrolled(250.40) ([facility] V24, [facility] V28) 08/07/2007 DX:Type II or unspecified t ype diabetes mellitus with renal manifestations, not stated as uncontrolled(250.40) ([facility]); COMMENT: 07/10--Ogtt neg Intol Lisinopril CKD [...] DX:Weight loss Pacemaker DX:Pacemaker Peripheral vascular disease ([facility]) DX:Peripheral vascular disea se ([facility]) Family History Medical History Relation Name [...] age to complete this topic Care Teams Surface Water Technician Relationship Specialty Start Date End Date Landy Sutherland MD PCP - General 05/24/22
--- OUTSIDE RECORDS SUMMARY | 2024-12-15 10:35 | XMS_ITS | Clinical Summary ---
Author Organization [facility] Address [address] [place] [address] Phone Care Team Providers Care Signal Operator Linguist Name Role Phone Jaylen Taylor JEB Primary Care Provider [phone] Allergies Active Allergy Reactions Criticality Noted Date [...] [facility] [address] [place] [address] [place] [address] Elia Winters MD Stage 3 [...] [facility] [address] [place] [phone] Elia Winters MD [address] [address] Health Maintenance Due Date Last [...] 10.1 8.7 - 10.7 mg/dL eGFR Non-Afr [place] 33 Total Bilirubin 0.3 MG/DL ALT (SGPT) 12 U/L AST (SGOT) 12 U/L Alkaline Phosphatase 80 U/L Hemoglobin A1C 6.0 4.0 - 6.0 12/11/2021 us Historical Provider LAB BLOOD ORDERABLES Lianet l Result from Last 3 Months or Most Recently Relevant to Health Maintenance Insurance [facility] Medicare [facility] Medicare Care Teams Signal Operator Linguist Relationship Specialty Start Date End Date Jaylen Taylor CNP [address] [place] [address] PCP - General 04/04/23
--- OUTSIDE RECORDS SUMMARY | 2024-12-15 10:36 | XMS_ITS | Patient Health Record ---
Author Organization [facility] Address [address] [place] [address] Care Team Providers Care Medium Cycle Salesperson Name Role Phone Oscar Alicia MD Primary Care Provider Prashant Sibley Unavailable [phone] Allergies Allergen (clinical drug ingredient) Drug/Non Drug [...] confirmed Problem Information temporarily unavailable Atherosclerosis of [place] arteries of extremities with intermittent claudication, bilateral [...] Insured Coverage Start Date Coverage End Date [facility] [address] [place] [address] [id number] Pallavi Mukherjee Self - patient is the [...]
--- OUTSIDE RECORDS SUMMARY | 2024-12-15 10:36 | XMS_ITS | Encounter Summary ---
Author Organization [facility] Address [address] [place] [address] Phone Care Team Providers Care Key Entry Operator Name Role Phone Des Sanchez MD Primary Care Provider [phone] Encounter Details Date Type Department Care Team (Late st Contact Info) Description 01/05/2022 Procedure Pass [facility], Ct Scan - [address] [address] Social History Tobacco Use Types Packs/Day Years [...] 6:33 PM EDT Cici Burgos RN * [place] Suicide Severity Rating Scale (Screener/Recent Self-Report) Question [...] documented as of this encounter Care Teams Key Entry Operator Relationship Specialty Start Date End Date Des Sanchez MD [address] [place] [address] PCP - General Internal Medicine 11/22/21 documented as of this encounter Additional Source Comments The information contained in this document represents components of the legal health record. It is not the complete legal health record.[facility]
--- OUTSIDE RECORDS SUMMARY | 2024-12-15 10:36 | XMS_ITS | Continuity of Care Document ---
Author Organization [facility] [address] [place] [address] Phone [phone] Care Team Providers Care Software Engineering Manager Name Role Phone Claudia York CNP Care Team Information Receive r [phone] Problems Active Problems Provider Date Osteoporosis Emanuel [...] Indications Ordering Provider Date Vitamin D (Ergocalciferol)1.25mg (94957 Ut) Capsules 1 tab by mouth every week 8caps Emanuel Cueva M.D. 06/20/2023 Lisinopril2.5mg Tablets Take 1 Tablet Orally Every Evening Unknown Clopidogrel Gxfmgrwba84py Tablets Take 1 Tablet By Mouth Every Day Des Sanchez MD Amlodipine Nhdybstz03fn Tablets Take 1 Tablet By Mouth Every Day Unknown Ckubyorhdb743kf Tablets Take 1 Tablet By Mouth 2 Times A Day For 30 Days Claudia York CNP Ferrous Mqoesam632(65Fe) mg Tablets Take 1 Tablet By Mouth 1 Time Each Day With Breakfast. Unknown Pramipexole Dihydrochloride0.125mg Tablets Take 2 By Mouth Daily Des Sanchez MD Pufsbvcijb888xa Capsules Take 1 Capsule By Mouth Three Times A Day Unknown Sertraline DPG656lc Tablets Take 1 Tablet By Mouth Twice A Day Des Sanchez MD Metformin ETL882aw Tablets Take 1 Tablet By Mouth Twice A Day Des Sanchez MD Atorvastatin Nohlhzd62em Tablets Take 1 Tablet By Mouth Every Day Des Sanchez MD Levothyroxine Zpgbaq321nhe Tablets Take 1 Tablet By Mouth Every Day Des Sanchez MD Vital Signs Date Vital Result Comment 06/16/2023 9:37am BP Systolic 110 mmHg BP Diastolic 70 mmHg Heart Rate 72 /min Height 64 inches 5'4 Weight 128.12 lb BMI (Body Mass Index) 22.0 kg/m2 Results Test Acquired Date Facility Test Result H/L Range N ote Basic Metabolic Panel 06/16/2023 [facility] Glucose 102 mg/dL High (70-99) BUN 24 mg/dL High (8-23) Creatinine 1.3 mg/dL High (0.5-1.0) Sodium 140 mmol/L (133-145) Potassium 5.2 mmol/L (3.6-5.2) Chloride 105 mmol/L (98-107) Bicarbonate 20 mmol/L Low (22-29) Anion Gap 15 (4-17) Calcium 10.4 mg/dL (8.6-10.5 ) Estimated GFR Creatinine 41 ML/MIN/1.7 3M2 1 25Oh Vitamin D 06/16/2023 [facility] 25Oh Vitamin D 14.9 NG/ML Low (20-50) Albumin 06/16/2023 [facility] Albumin 4.6 GM/DL (3.4-4.8) PTH, Intact 06/16/2023 [facility] PTH, Intact 102 pg/mL High (15-65) Phosphorus 06/16/2023 [facility] Phosphorus 3.6 mg/dL [...] E11.9 Type 2 diabetes mellitus* New Labs:* [id number]-Ef-[id number], Ordered: 06/16/23 * Creat Clearance, Ordered: 06/16/23 * N-Telopeptide Cross Links, Urine, Ordered: 06/16/23 Functional Status Description No Information Available Mental Status Description No Information Available Referrals Description No Information Available
[2024-12-15 11:22] LABS: Appearance Urine Clear; Glucose Urine UA Negative (Negative); PH 7.0 (5.0-9.0); Specific Gravity - Urine 1.015 (1.005-1.025); UMIC TRIGGER UACC YES
[2024-12-15 11:25] LABS: MANUAL DIFF FLAG NO
[2024-12-15 11:33] LABS: Hematocrit 35.5 % (37.0-47.0); Hemoglobin 11.7 g/dl (12.0-16.0); Imm Gran Abs Auto 0.02 X10*3/uL (0.00-0.03); Imm Gran Pct Auto 0.3 % (0.0-0.4); Lymphocytes Absolute Auto 0.9 X10*3/uL (1.2-4.9); Mean Corpuscular HGB Conc 33.0 g/dl (31.0-35.0); Mean Corpuscular Hemoglobin 30.9 pg (27.0-33.0); Mean Corpuscular Volume 93.7 fL (80.0-98.0); NRBC Abs Auto 0.000 X10*3/uL (0.0-0.012); NRBC Pct Auto 0.0 /100WBC (0.0-0.2); Platelet Count 279 X10*3/uL (160-400); Red Blood Count 3.79 X10*6/uL (4.20-5.50); White Blood Count 7.5 X10*3/uL (4.8-10.8)
[2024-12-15 11:55] LABS: Alanine Aminotransferase 16 U/L (0-31); Albumin Level 4.5 g/dL (3.5-5.0); Alkaline Phosphatase 90 U/L (39-117); Anion Gap 16 (12-20); Aspartate Amino Transferase 21 U/L (5-31); Blood Urea Nitrogen 31 mg/dL (9-16); Calcium 10.3 mg/dL (8.4-10.2); Carbon Dioxide 23 mmol/L (22-29); Chloride 110 mmol/L (96-108); Cholesterol 156 mg/dL (<200); Estimated Glomerular Filt Rate 27; HDL Cholesterol 41 mg/dL (>40); Magnesium 1.6 mg/dL (1.6-2.6); Potassium 5.5 mmol/L (3.3-5.1); Sodium 143 mmol/L (135-145); Total Protein 7.7 g/dL (6.5-8.0); Triglycerides 114 mg/dL (<150)
== END 2024-12-15 09:56 | disposition home or self-care (01) ==
LOC: HO.WFDLDS 09:55
PROVIDERS: Internal Medicine Medical Oncology; Referring Provider Nurse Practitioner Family; Visit Provider Nurse Practitioner Family
DX: Z09 Encounter for follow-up examination after completed treatment for conditions other than malignant neoplasm (principal); N18.32 Chronic kidney disease, stage 3b; D63.1 Anemia in chronic kidney disease
CPT/HCPCS: 36415; 80053; 80061; 81001; 83735; 84100; 85025

== ENCOUNTER 2024-12-27 12:29 | Outpatient (AMB) | payer MEDICARE, SELFPAY ==
--- NOTE | 2024-12-27 12:56 | MHC.OFFVIS ---
Vital Signs 12/27/24 12:57 Height 5 ft 4 in Weight 121 lb 4.068 oz BMI 20.8 BP 122/70 Blood Pressure Location Lt brachial Position Sitting Pulse 60 Intake Visit Reasons: Pacemaker check Intake Note: Follow-up [facility] dc and biotronik check feeling good Allergies acetaminophen (From Percocet) Allergy (Intermediate, Verified 12/14/24 11:19) Itching oxycodone (From Percocet) Allergy (Intermediate, Verified 12/14/24 11:19) Itching Seasonal Allergies Allergy (Intermediate, Verified 12/14/24 11:19) Itchy Eyes ibuprofen (From Motrin) Allergy (Unknown, Verified 12/14/24 11:19) Swelling wheat Adverse Reaction (Unknown, Verified 12/14/24 11:19) Diarrhea lactose Adverse Reaction (Verified 12/14/24 11:19) Diarrhea Medication List - Last Reconciled 12/27/24 by Joseph Nicholas MD amlodipine 5 mg PO BID aspirin 81 mg PO DAILY atorvastatin 80 mg PO BEDTIME cetirizine (Allergy Relief (cetirizine)) 10 mg PO DAILY clopidogrel 75 mg PO DAILY 30 days cyanocobalamin (vitamin B-12) 1,000 mcg PO DAILY ezetimibe 10 mg PO DAILY famotidine 20 mg PO DAILY ferrous sulfate (Iron (ferrous sulfate)) 325 mg PO DAILY furosemide (Lasix) 20 mg PO DAILY gabapentin 600 mg PO BID ipratropium-albuterol 0.5 mg-3 mg(2.5 mg base)/3 mL 3 mL inhalation Q6H PRN levothyroxine 125 mcg PO DAILY 30 days metoprolol succinate ER 50 mg PO DAILY 30 days nicotine 1 patch transdermal Q24H pramipexole 0.25 mg (2 x 0.125 mg) PO BEDTIME sertraline 100 mg PO DAILY 90 days HPI Comments Details: Pallavi comes for follow-up after recent couple of hospitalizations to the hospital. She was admitted september initially with hypotension and what appear to be secondary to diarrhea related to norovirus and C difficile. While in the hospital she developed acute respiratory failure and hypoxemia , secondary to pulmonary edema which she was treated with noninvasive ventilation diuresis. She then improved and oxygen requirement improved and she was subsequently discharged home. Again in November she was admitted with significantly elevated blood pressure and subsequently in congestive heart failure requiring noninvasive ventilation diuresis. She was then discharged home on oxygen. She denies any exertional chest pain. Continues to have exertional shortness of breath. No orthopnea, PND, leg edema. She says a blood pressures been well controlled on current therapy with amlodipine. Denies any prolonged palpitation irregular heartbeat. Comes for pacer evaluation. [facility] Medical History Screening for lung cancer Colon cancer screening Normal physical examination, routine Viral upper respiratory illness Laboratory tests ordered as part of a complete physical exam (CPE) Cardiac pacemaker in situ Runny nose Smoking 1/2 pack a day or less SOB (shortness of breath) on exertion Smoking greater than 30 pack years Diarrhea Osteopenia Breast cancer screening Chronic diarrhea Skin tear of left upper arm without complication Aortic stenosis Restless leg syndrome No pertinent family history Hyperlipidemia Chronic back pain Osteoarthritis GERD (gastroesophageal reflux disease) Anxiety and depression Type 2 diabetes mellitus Hypertension CKD (chronic kidney disease) stage 3, GFR 30-59 ml/min Hypothyroidism Cataracts, bilateral COPD (chronic obstructive pulmonary disease) Deafness in right ear Stroke Surgical History History of esophagogastroduodenoscopy (EGD) H/O colonoscopy History of tonsillectomy History of appendectomy H/O: hysterectomy History of back surgery H/O thyroidectomy H/O endarterectomy S/P cardiac pacemaker procedure Family History Mother Bladder cancer Brother Bladder cancer Social History Household Members: Children Housing: House Do you presently have visiting nurse or other home services: No Alcohol intake: never Patient Tobacco Use Status: Former Tobacco user Tobacco use type: Cigarette Cigarette Packs Per Day: 0.25 Cigarettes Per Day: 3 Years Smoked: 70 e-Cigarette/Vaping Use: Former Use Second Hand Smoke Exposure: No Substance Use Type: Marijuana service: No Current occupational status: retired Current occupational exposures/hazards: No Cognitive needs: No Hearing needs: No Vision needs: No Review of Systems Const Denies chills, Denies fatigue, Denies fever(s), Denies frequent falls, Denies weakness, Denies weight gain and Denies weight loss ENT Denies dizziness Card Denies chest pain, Denies leg edema, Denies lightheadedness, Denies palpitations, Denies dyspnea, Denies dyspnea on exertion, Denies orthopnea and Denies other (loss of consciousness) Resp Denies cough, Denies dyspnea and Denies dyspnea on exertion GI Denies hematochezia and Denies change in stool character Musc Denies abnormal gait, Denies muscle weakness, Denies numbness, Denies radiating pain into limb and Denies tingling Neuro Denies abnormal gait, Denies dizziness, Denies frequent falls, Denies numbness, Denies tingling and Denies weakness Endo Denies fatigue and Denies palpitations Physical Exam Vital Signs: Last Vital Signs Pulse 60 12/27/24 12:57 BP 122/70 12/27/24 12:57 BMI result Body Mass Index 20.8 Const General: cooperative, healthy appearing, comfortable and no acute distress Orientation/consciousness: patient oriented x3 Neck Neck: Yes normal visual inspection and Yes no JVD Resp Effort & Inspection: normal respiratory effort Auscultation: clear to auscultation bilaterally, no crackles, no rales, no rhonchi and no wheezes Cardio Jugular venous distension: no JVD Rate: regular rate Rhythm: regular rhythm Heart sounds: S1 normal heart sound present, S2 normal heart sound present, Murmur heart sound present systolic mid, decrescendo, crescendo, harsh, IV/ and at the left sternal border and no rubs Skin General skin exam: ecchymosis Neuro General: patient oriented x3 Extrem General: Yes no clubbing, cyanosis or edema Psych Appearance: grossly normal Mental Status: mental status grossly normal Speech and movement: Normal speech and movement present Office Procedures Cardiac Device Check Cardiac Device Check Details: Dual-chamber [employer] pacemaker in place. Programmed in DDDR at 60 beats per minute. Battery life is 3 years in 6 months. There was 1 episode of atrial fibrillation 32 minutes. Atrial ventricular pacing thresholds adequate. Some episodes of SVT noted. Atrial ventricular sensing is adequate. Pacing lead impedance is stable. [id number] Cardiac Device Check, pacemaker dual lead Procedure code (CPT) selection complete Assessment & Plan Assessment & Plan (1) Chronic heart failure with preserved ejection fraction (HFpEF): Code(s): I50.32 - Chronic diastolic (congestive) heart failure Category: Medical Plan: Patient with prior history of chronic heart failure with recent couple of episodes of significant pulmonary edema requiring noninvasive ventilation diuresis. Both of these episodes was sudden-onset. Ischemia needs to be ruled out. Will suggest a vasodilating myocardial perfusion imaging for the same. Clinically today appears to be euvolemic and well compensated. Continue current diuretic regimen. Daily weight monitoring avoidance salt loading was discussed. Continue aggressive blood pressure control which is currently well optimized. Also would suggest repeat echocardiogram to assess for any progressive aortic stenosis. Continue monitor and follow up in the clinic in 2 months time. (2) Aortic stenosis: Code(s): I35.0 - Nonrheumatic aortic (valve) stenosis Category: Medical Plan: Aortic stenosis which is at least moderate by clinical exam. Follow-up echocardiogram near future. Continue aggressive risk factor modification. Currently on dual antiplatelet therapy. Continue ezetimibe but she would also be on statin therapy. Target goal LDL less than 70 mg/dL. 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 Working well. Noted to have atrial fibrillation but this is self-limiting and total episode lasted 32 minutes. Will continue monitor remote telemetry for more episodes of atrial fibrillation total burden of atrial fibrillation that may direct anticoagulation therapy. Follow up in the clinic in 2 months time, sooner p.r.n.. Thank you for allowing me to partake in her care Coding Level of Care Code Est Pt Level 4 (74611) Complex EM visit Add On G2211 Diagnoses Chronic heart failure with preserved ejection fraction (HFpEF) I50.32 Aortic stenosis I35.0 Cardiac pacemaker in situ Z95.0 CPT Codes Cardiac Device Check - Cardiac Device 2: [id number] Cardiac Device Check, pacemaker dual lead ([id number])
[2024-12-27 12:57] VITALS: BP 122/70; PULSE 60; BMI 20.8
--- OUTSIDE RECORDS SUMMARY | 2024-12-27 13:39 | XMS_ITS | Continuity of Care Document ---
Author Organization [facility] [address] [place] [address] Phone [phone] Care Team Providers Care Epic Ambulatory Analysts Name Role Phone Claudia York CNP Care Team Information Receive r [phone] Problems Active Problems Provider Date Osteoporosis Emanuel [...] Indications Ordering Provider Date Vitamin D (Ergocalciferol)1.25mg (32068 Ut) Capsules 1 tab by mouth every week 8caps Emanuel Cueva M.D. 06/20/2023 Lisinopril2.5mg Tablets Take 1 Tablet Orally Every Evening Unknown Clopidogrel Kyyslzbyz80si Tablets Take 1 Tablet By Mouth Every Day Des Sanchez MD Amlodipine Rvdskpvg55mb Tablets Take 1 Tablet By Mouth Every Day Unknown Tuimkvbfeg666er Tablets Take 1 Tablet By Mouth 2 Times A Day For 30 Days Claudia York CNP Ferrous Zqqjprt466(65Fe) mg Tablets Take 1 Tablet By Mouth 1 Time Each Day With Breakfast. Unknown Pramipexole Dihydrochloride0.125mg Tablets Take 2 By Mouth Daily Des Sanchez MD Txpxlhivqp186wf Capsules Take 1 Capsule By Mouth Three Times A Day Unknown Sertraline YIJ824qu Tablets Take 1 Tablet By Mouth Twice A Day Des Sanchez MD Metformin TIH017xd Tablets Take 1 Tablet By Mouth Twice A Day Des Sanchez MD Atorvastatin Adlwxsr05jz Tablets Take 1 Tablet By Mouth Every Day Des Sanchez MD Levothyroxine Ixopwo047epw Tablets Take 1 Tablet By Mouth Every Day Des Sanchez MD Vital Signs Date Vital Result Comment 06/16/2023 9:37am BP Systolic 110 mmHg BP Diastolic 70 mmHg Heart Rate 72 /min Height 64 inches 5'4 Weight 128.12 lb BMI (Body Mass Index) 22.0 kg/m2 Results Test Acquired Date Facility Test Result H/L Range N ote Basic Metabolic Panel 06/16/2023 [facility] Glucose 102 mg/dL High (70-99) BUN 24 mg/dL High (8-23) Creatinine 1.3 mg/dL High (0.5-1.0) Sodium 140 mmol/L (133-145) Potassium 5.2 mmol/L (3.6-5.2) Chloride 105 mmol/L (98-107) Bicarbonate 20 mmol/L Low (22-29) Anion Gap 15 (4-17) Calcium 10.4 mg/dL (8.6-10.5 ) Estimated GFR Creatinine 41 ML/MIN/1.7 3M2 1 25Oh Vitamin D 06/16/2023 [facility] 25Oh Vitamin D 14.9 NG/ML Low (20-50) Albumin 06/16/2023 [facility] Albumin 4.6 GM/DL (3.4-4.8) PTH, Intact 06/16/2023 [facility] PTH, Intact 102 pg/mL High (15-65) Phosphorus 06/16/2023 [facility] Phosphorus 3.6 mg/dL (2.5-4.5) [...] E11.9 Type 2 diabetes mellitus* New Labs:* Vqjpbij-Cp-Xhtra, Ordered: 06/16/23 * Creat Clearance, Ordered: 06/16/23 * N-Telopeptide Cross Links, Urine, Ordered: 06/16/23 Functional Status Description No Information Available Mental Status Description No Information Available Referrals Description No Information Available
--- OUTSIDE RECORDS SUMMARY | 2024-12-27 13:39 | XMS_ITS | Clinical Summary ---
Author Organization [facility] Address [address] [place] [phone] Phone Care Team Providers Care Clinical Support Specialist Name Role Phone Jaylen Taylor JEB Primary Care Provider [phone] Allergies Active Allergy Reactions Criticality Noted Date [...] [facility] [place] [address] [place] [address] Elia Winters MD Stage 3 [...] [facility] [address] [place] [id number] Elia Winters MD [address] [address] Health Maintenance Due Date Last [...] 10.1 8.7 - 10.7 mg/dL eGFR Non-Afr [place]ral[place]arian 33 Total Bilirubin 0.3 MG/DL ALT (SGPT) 12 U/L AST (SGOT) 12 U/L Alkaline Phosphatase 80 U/L Hemoglobin A1C 6.0 4.0 - 6.0 12/11/2021 us Historical Provider LAB BLOOD ORDERABLES Lianet l Result from Last 3 Months or Most Recently Relevant to Health Maintenance Insurance [facility] Medicare [facility] Medicare Care Teams Clinical Support Specialist Relationship Specialty Start Date End Date Jaylen Taylor CNP [address] [place] [address] PCP - General 04/04/23
--- OUTSIDE RECORDS SUMMARY | 2024-12-27 13:39 | XMS_ITS | Encounter Summary ---
Author Organization [facility] Address [address] [place] [phone] Phone Care Team Providers Care Night Order Selector Name Role Phone Des Sanchez MD Primary Care Provider [phone] Encounter Details Date Type Department Care Team (Late st Contact Info) Description 01/05/2022 Procedure Pass [facility], Ct Scan - [address] [address] Social History Tobacco Use Types Packs/Day Years [...] 6:33 PM EDT Cici Burgos RN * [place] Suicide Severity Rating Scale (Screener/Recent Self-Report) Question [...] documented as of this encounter Care Teams Night Order Selector Relationship Specialty Start Date End Date Des Sanchez MD [address] [place] [address] PCP - General Internal Medicine 11/22/21 documented as of this encounter Additional Source Comments The information contained in this document represents components of the legal health record. It is not the complete legal health record.[facility]
--- OUTSIDE RECORDS SUMMARY | 2024-12-27 13:39 | XMS_ITS | Clinical Summary ---
Author Organization [facility] ity Address [address] [place] [address] Care Team Providers Care Patternmaker Plastics Name Role Phone Landy Sutherland MD Primary Care Provider [phone] Surgical History Surgery Date Site/Laterality Comments OTHER [...] reflux Lumbago 03/01/2005 DX:Lumbago Thoracic aneurysm, ruptured ([facility] V24, [facility] V28) 11/12/2004 DX:Thoracic aneurysm, ruptur ed ([facility]) Peripheral vascular disease, unspecified ([facility] V24) 11/09/2004 DX:Peripheral vascular disea se, unspecified ([facility]) Other dyspnea and respirator y abnormality 11/09/2004 DX:Other dyspnea and respira tory abnormality Sciatica 09/12/2004 DX:Sciatica Sinoatrial node dysfunction ([facility] V24, [facility] V28) 01/19/2004 DX:Sinoatrial node dysfuncti on ([facility]) Cervicalgia 01/04/2004 DX:Cervicalgia Palpitations 01/04/2004 DX:Palpitations [...] with ophthalmic manifestations, not stated as uncontrolled(250.50) ([facility] V24, [facility] V28) 07/15/2012 DX:Type II or unspecified ty pe diabetes mellitus with ophthalmic manifestations, not stated as uncontrolled(250.50) ([facility]); COMMENT: Bilateral mild nuclear sclerosis. Type II or unspecified type diabetes mellitus with renal manifestations, not stated as uncontrolled(250.40) ([facility] V24, [facility] V28) 08/07/2007 DX:Type II or unspecified t ype diabetes mellitus with renal manifestations, not stated as uncontrolled(250.40) ([facility]); COMMENT: 07/10--Ogtt neg Intol Lisinopril CKD [...] DX:Weight loss Pacemaker DX:Pacemaker Peripheral vascular disease ([facility] V24) DX:Peripheral vascular disea se ([facility]) Family History Medical History Relation Name [...] age to complete this topic Care Teams [employer] Relationship Specialty Start Date End Date Landy Sutherland MD PCP - General 05/24/22
--- OUTSIDE RECORDS SUMMARY | 2024-12-27 13:39 | XMS_ITS | Patient Health Record ---
Author Organization [facility] Address [address] [place] [address] Care Team Providers Care Tool And Die Engineer Name Role Phone Oscar Alicia MD Primary Care Provider Prashant Sibley Unavailable [phone] Allergies Allergen (clinical drug ingredient) Drug/Non Drug [...] confirmed Problem Information temporarily unavailable Atherosclerosis of [place] arteries of extremities with intermittent claudication, bilateral [...] Coverage Start Date Coverage End Date [facility] [id number] [facility] [address] [place] [address] [id number] Pallavi Mukherjee Self - patient is the [...]
== END 2024-12-27 13:34 | disposition home or self-care (01) ==
LOC: HO.HCS 12:30
PROVIDERS: PCP Nurse Practitioner Family; Visit Provider Internal Medicine Cardiovascular Disease
DX: I50.32 Chronic diastolic (congestive) heart failure (principal); I35.0 Nonrheumatic aortic (valve) stenosis; Z95.0 Presence of cardiac pacemaker
CPT/HCPCS: 93280; 99214; G2211

== ENCOUNTER → 2024-12-27 12:29 | Outpatient (BNVA) | payer MEDICARE, SELFPAY | PROVIDERS: PCP Nurse Practitioner Family; Visit Provider Internal Medicine Cardiovascular Disease | DX: Z45.010 Encounter for checking and testing of cardiac pacemaker pulse generator [battery] (principal); I50.32 Chronic diastolic (congestive) heart failure; I35.0 Nonrheumatic aortic (valve) stenosis | CPT/HCPCS: 93280; 99212 ==

== ENCOUNTER → 2025-01-04 23:59 | Outpatient (BNV) | payer MEDICARE, SELFPAY ==
--- NOTE | 2025-01-05 15:00 | A.OFFVIS_ITS ---
Intake Visit Reasons: Remote device check- Biotronik Allergies acetaminophen (From Percocet) Allergy (Intermediate, Verified 12/14/24 11:19) Itching oxycodone (From Percocet) Allergy (Intermediate, Verified 12/14/24 11:19) Itching Seasonal Allergies Allergy (Intermediate, Verified 12/14/24 11:19) Itchy Eyes ibuprofen (From Motrin) Allergy (Unknown, Verified 12/14/24 11:19) Swelling wheat Adverse Reaction (Unknown, Verified 12/14/24 11:19) Diarrhea lactose Adverse Reaction (Verified 12/14/24 11:19) Diarrhea [facility] Medical History Screening for lung cancer Colon cancer screening Normal physical examination, routine Viral upper respiratory illness Laboratory tests ordered as part of a complete physical exam (CPE) Cardiac pacemaker in situ Runny nose Smoking 1/2 pack a day or less SOB (shortness of breath) on exertion Smoking greater than 30 pack years Diarrhea Osteopenia Breast cancer screening Chronic diarrhea Skin tear of left upper arm without complication Aortic stenosis Restless leg syndrome No pertinent family history Hyperlipidemia Chronic back pain Osteoarthritis GERD (gastroesophageal reflux disease) Anxiety and depression Type 2 diabetes mellitus Hypertension CKD (chronic kidney disease) stage 3, GFR 30-59 ml/min Hypothyroidism Cataracts, bilateral COPD (chronic obstructive pulmonary disease) Deafness in right ear Stroke Surgical History History of esophagogastroduodenoscopy (EGD) H/O colonoscopy History of tonsillectomy History of appendectomy H/O: hysterectomy History of back surgery H/O thyroidectomy H/O endarterectomy S/P cardiac pacemaker procedure Family History Mother Bladder cancer Brother Bladder cancer Social History Household Members: Children Housing: House Do you presently have visiting nurse or other home services: No Alcohol intake: never Patient Tobacco Use Status: Former Tobacco user Tobacco use type: Cigarette Cigarette Packs Per Day: 0.25 Cigarettes Per Day: 3 Years Smoked: 70 e-Cigarette/Vaping Use: Former Use Second Hand Smoke Exposure: No Substance Use Type: Marijuana service: No Current occupational status: retired Current occupational exposures/hazards: No Cognitive needs: No Hearing needs: No Vision needs: No Office Procedures Cardiac Device Check Cardiac Device Check Details: Remote pacemaker report generated 01/04/2025. Pacemaker function is adequate [id number] Cardiac Device Interrogation, pacemaker Procedure code (CPT) selection complete Assessment & Plan Assessment & Plan (1) Cardiac pacemaker in situ: Comment: [employer] dual-chamber pacemaker in place, placed in 2016 Code(s): Z95.0 - Presence of cardiac pacemaker Category: Medical Plan: See above Coding Level of Care Code Procedure Only Diagnoses Cardiac pacemaker in situ Z95.0 CPT Codes Cardiac Device Check - Cardiac Device 12: [id number] Cardiac Device Interrogation, pacemaker ([id number])
== END ==
PROVIDERS: PCP Nurse Practitioner Family; Visit Provider Internal Medicine Cardiovascular Disease
DX: Z45.018 Encounter for adjustment and management of other part of cardiac pacemaker (principal)
CPT/HCPCS: 93294

== ENCOUNTER 2025-01-07 09:24 | Outpatient (AMB) | payer MEDICARE, SELFPAY ==
--- NOTE | 2025-01-07 09:27 | A.OFFVIS_ITS ---
Vital Signs 01/07/25 09:28 Height 5 ft 4 in Weight 122 lb 4 oz BMI 21.0 BP 162/80 H Blood Pressure Location Rt brachial Position Sitting Pulse 72 Pulse Source Pulse Oximeter Pulse Oximetry (%) 99 Oxygen Delivery Method Room Air Intake Visit Reasons: COPD Allergies acetaminophen (From Percocet) Allergy (Intermediate, Verified 01/07/25 09:31) Itching oxycodone (From Percocet) Allergy (Intermediate, Verified 01/07/25 09:31) Itching Seasonal Allergies Allergy (Intermediate, Verified 01/07/25 09:31) Itchy Eyes ibuprofen (From Motrin) Allergy (Unknown, Verified 01/07/25 09:31) Swelling wheat Adverse Reaction (Unknown, Verified 01/07/25 09:31) Diarrhea lactose Adverse Reaction (Verified 01/07/25 09:) Diarrhea HPI HPI COPD: Details: Pallavi is a pleasant 79-year-old female, current smoker, with 70pyh with underlying COPD, hypertension, aortic stenosis, diastolic dysfunction on lasix 20mg, hyperlipidemia, diabetes mellitus, chronic kidney disease stage 3, peripheral vascular disease, and tachybradycardia status post pacemaker placement. She reports moderate control with Breztri however continues with dyspnea with exertion that has progressively worsened over time. She presents after hospital follow up with CHF exacerbation admitted to the hospital in November for acute hypoxic respiratory failure secondary to fluid overload treated with intravenous diuretics and upon discharge, she was prescribed Lasix 20 mg daily to manage fluid retention QD, previously PRN. The patient was sent home with supplemental oxygen and has been monitoring her oxygen saturation levels, which have been in the high 90s during the day. She reports using 2 liters of oxygen at night due to occasional drops in oxygen saturation into the 80s, otherwise does not use during the day. DME is [employer]. The patient has been experiencing a productive cough with yellow sputum and occasional dyspnea. She denies any fever or chills and has not received antibiotics recently. A 1.5 cm RML pulmonary nodule was noted on a recent chest x-ray, which was not present on a previous CT scan, prompting a recommendation for a follow-up CT scan. [facility] Medical History Screening for lung cancer Colon cancer screening Normal physical examination, routine Viral upper respiratory illness Laboratory tests ordered as part of a complete physical exam (CPE) Cardiac pacemaker in situ Runny nose Smoking 1/2 pack a day or less SOB (shortness of breath) on exertion Smoking greater than 30 pack years Diarrhea Osteopenia Breast cancer screening Chronic diarrhea Skin tear of left upper arm without complication Aortic stenosis Restless leg syndrome No pertinent family history Hyperlipidemia Chronic back pain Osteoarthritis GERD (gastroesophageal reflux disease) Anxiety and depression Type 2 diabetes mellitus Hypertension CKD (chronic kidney disease) stage 3, GFR 30-59 ml/min Hypothyroidism Cataracts, bilateral COPD (chronic obstructive pulmonary disease) Deafness in right ear Stroke Surgical History History of esophagogastroduodenoscopy (EGD) H/O colonoscopy History of tonsillectomy History of appendectomy H/O: hysterectomy History of back surgery H/O thyroidectomy H/O endarterectomy S/P cardiac pacemaker procedure Family History Mother Bladder cancer Brother Bladder cancer Social History (Updated 01/07/25 @ 09:31 by Daphney Guillermo CMA) Household Members: Children Housing: House Do you presently have visiting nurse or other home services: No Alcohol intake: never Patient Tobacco Use Status: Former Tobacco user Tobacco use type: Cigarette Cigarette Packs Per Day: 0.25 Cigarettes Per Day: 5 Years Smoked: 70 e-Cigarette/Vaping Use: Former Use Second Hand Smoke Exposure: No Substance Use Type: Marijuana service: No Current occupational status: retired Current occupational exposures/hazards: No Cognitive needs: No Hearing needs: No Vision needs: No Review of Systems Const Denies chills, Denies excessive sweating, Denies fever(s), Denies headache(s) and Denies night sweats Eyes Denies dry eyes, Denies irritation and Denies itchy eyes ENT Reports Normal hearing present and Denies headache(s) Card Denies chest pain, Denies chest pain at rest, Denies chest pain with activity, Denies claudication, Denies leg edema, Reports dyspnea on exertion and Denies paroxysmal nocturnal dyspnea Resp Reports change in phlegm color, Reports chest congestion, Reports cough, Denies hemoptysis, Denies excessive phlegm production, Denies pain on inspiration, Denies pain with cough, Reports dyspnea on exertion and Denies stridor Musc Denies myalgias Neuro Reports Normal hearing present and Denies headache(s) Endo Denies excessive sweating Arnold/Lymph Denies lymphadenopathy Aller/Immun Denies itchy eyes and Denies seasonal rhinorrhea Physical Exam Vital Signs: Last Vital Signs Pulse 72 01/07/25 09:28 BP 162/80 H 01/07/25 09:28 Pulse Ox 99 01/07/25 09:28 Oxygen Delivery Method Room Air 01/07/25 09:28 BMI result Body Mass Index 21.0 Const General: cooperative, healthy appearing, comfortable, no acute distress and alert Nutritional Appearance: thin Orientation/consciousness: patient oriented x3 Limitations: no limitations HEENT Head: Yes normal to inspection, Yes normocephalic and Yes atraumatic Ears: hearing grossly normal bilaterally and external ears normal Eyes General: appearance normal, both eyes and all related structures Eyelids: Yes eyelids normal Sclerae: sclerae normal EOM: EOMs intact bilaterally Neck Neck: Yes normal visual inspection and Yes no lymphadenopathy Lymphatic: no lymphadenopathy noted Chest Chest palpation & inspection: normal inspection of the chest Resp Effort & Inspection: normal respiratory effort, able to speak in complete sentences, no audible wheezes, no cough, no stridor, not tachypneic, no tripod positioning and no use of accessory muscles Auscultation: diminished lung sounds Cardio Jugular venous distension: no JVD Rate: regular rate Rhythm: regular rhythm Skin Other: warm, dry General skin exam: no rashes or lesions noted Neuro General: patient oriented x3 Cranial nerves: Yes Normal hearing present Cognition (Neuro): normal cognition Gait exam (Neuro): Normal gait present Extrem General: Yes normal to inspection, Yes capillary refill normal, Yes no clubbing, cyanosis or edema and Yes no pedal edema Psych Appearance: grossly normal and well kempt Speech and movement: Normal speech and movement present and Clear speech present Affect: normal affect Attitude: cooperative Thought process: Normal thought process present Thought content: Normal thought content present Insight: Good insight present (Psych) Judgement: Good judgement present (Psych) Office Procedures 6 Minute Walk Time:: 09:58 SPO2 % at rest: 95 Pulse at rest: 72 SPO2 % during excercise: 90 Pulse during excercise: 97 SPO2 % after excercise: 94 Pulse after excercise: 91 Distance in yards walked: 100 Duarte Score: 7 Performance Observations:: Patient walked unassisted on level ground at a slow pace. Maintained O2 saturation between 90-93% with pulse rate of 80-97. Patient reports she does get short of breath with ambulation of any great distance or upstairs but reports she rarely walks any distance. Patient slightly short of breath with walking but did not require the use of supplemental oxygen. [id number] - 6 Minute Walk Assessment & Plan Assessment & Plan (1) COPD (chronic obstructive pulmonary disease): Code(s): J44.9 - Chronic obstructive pulmonary disease, unspecified Category: Medical Qualifiers: COPD type: emphysema Emphysema type: panlobular Qualified Code(s): J43.1 - Panlobular emphysema (2) Nicotine dependence, cigarettes, uncomplicated: Code(s): F17.210 - Nicotine dependence, cigarettes, uncomplicated Category: Medical (3) Pulmonary nodule 1 cm or greater in diameter: Code(s): R91.1 - Solitary pulmonary nodule Category: Medical Plan Will treat bronchitic symptoms with doxycycline. She is aware to call if symptoms do not improve or seek emergent care if worsen. During the visit, I discussed with the patient the importance of continuing her current medication regimen, recommended at discharge in addition to Breztri. Reviewed the plan for an overnight oxygen test to assess her need for continued oxygen therapy which will be performed on room air. 6MWT performed in office today and patient did not require supplemental oxygen. Advised to continue 2L of supplemental oxygen at [facility]. Recommended follow-up CT chest to evaluate the lung nodule noted on her recent chest x-ray. Advised her to monitor her oxygen saturation levels to maintain >92%. Smoking cessation reviewed. All questions were answered and patient is in agreement of plan. Will follow up in 8 weeks or sooner if needed. Orders: Orders AMB 6 minute walk Today J43.1 - Panlobular emphysema CT chest wo IV con Today R91.1 - Solitary pulmonary nodule Medications: New doxycycline hyclate 100 mg PO BID 14 caps 0RF Coding Level of Care Code Est Pt Level 4 (83127) Diagnoses Panlobular emphysema J43.1 COPD type: emphysema Emphysema type: panlobular Nicotine dependence, cigarettes, uncomplicated F17.210 Pulmonary nodule 1 cm or greater in diameter R91.1 CPT Codes Coding ([id number])
[2025-01-07 09:28] VITALS: BP 162/80; PULSE 72; O2SAT 99; BMI 21.0
--- OUTSIDE RECORDS SUMMARY | 2025-01-07 10:06 | XMS_ITS | Clinical Summary ---
Author Organization [facility] ity Address [address] [place] [address] Care Team Providers Care Economic Development Director Name Role Phone Landy Sutherland MD Primary Care Provider [phone] Surgical History Surgery Date Site/Laterality Comments OTHER SURGICAL HISTORY PROCEDURE: [place] LAMNOTMY INCL W/DCMPRSN NRV ROOT 1 INTRSPC LUMBR; COMMENT: 3 back operations CAROTID ENDARTERECTOMY 2000 PROCEDURE: HISTORICAL CAROTID ENDART; COMMENT: right VAGINAL DELIVERY PROCEDURE: AK VAGINAL DELIVERY ONLY; COMMENT: x2 ABDOMINAL SURGERY age 22 PROCEDURE: AK UNLISTED PROCEDURE ABDOMEN PERITONEUM & OMENTUM; COMMENT: laparotomy with LSO for ruptured ectopic TONSILLECTOMY PROCEDURE: HISTORICAL TONSILLECTOMY Medical History Medical History Date Comments Esophageal reflux 03/01/2005 DX:Esophageal reflux Lumbago 03/01/2005 DX:Lumbago Thoracic aneurysm, ruptured ([facility] V24, [facility] V28) 11/12/2004 DX:Thoracic aneurysm, ruptur ed ([facility]) Peripheral vascular disease, unspecified ([facility] V24) 11/09/2004 DX:Peripheral vascular disea se, unspecified ([facility]) Other dyspnea and respirator y abnormality 11/09/2004 DX:Other dyspnea and respira tory abnormality Sciatica 09/12/2004 DX:Sciatica Sinoatrial node dysfunction ([facility] V24, [facility] V28) 01/19/2004 DX:Sinoatrial node dysfuncti on ([facility]) Cervicalgia 01/04/2004 DX:Cervicalgia Palpitations 01/04/2004 DX:Palpitations Syncope [...] with ophthalmic manifestations, not stated as uncontrolled(250.50) ([facility] V24, [facility] V28) 07/15/2012 DX:Type II or unspecified ty pe diabetes mellitus with ophthalmic manifestations, not stated as uncontrolled(250.50) ([facility]); COMMENT: Bilateral mild nuclear sclerosis. Type II or unspecified type diabetes mellitus with renal manifestations, not stated as uncontrolled(250.40) ([facility] V24, [facility] V28) 08/07/2007 DX:Type II or unspecified t [...] DX:Weight loss Pacemaker DX:Pacemaker Peripheral vascular disease ([facility] V24) DX:Peripheral vascular disea se ([facility]) Family History Medical [...] Diabetes: Blood Sugar Control Test (HGBA1C) 04/18/2022 Depression Screening 05/05/2024 COVID-19 Vaccine ( season) 2025 Influenza Vaccine (#1) 2025 2, 03/11/2014, 01/20/2013, [...] age to complete this topic Care Teams Economic Development Director Relationship Specialty Start Date End Date Landy Sutherland MD PCP - General 05/24/22
--- OUTSIDE RECORDS SUMMARY | 2025-01-07 10:06 | XMS_ITS | Clinical Summary ---
Author Organization [facility] Address [address] [place] [phone] Phone Care Team Providers Care Media Sales Executive Name Role Phone Jaylen Taylor JEB Primary Care Provider [phone] Allergies Active Allergy Reactions Criticality Noted Date [...] [facility] [place] [address] [place] [address] Elia Winters MD Stage 3 [...] the [facility] [address] [place] [phone] Elia Winters MD [address] [address] Health Maintenance Due Date Last [...] 10.1 8.7 - 10.7 mg/dL eGFR Non-Afr Hungarian 33 Total Bilirubin 0.3 MG/DL ALT (SGPT) 12 U/L AST (SGOT) 12 U/L Alkaline Phosphatase 80 U/L Hemoglobin A1C 6.0 4.0 - 6.0 12/11/2021 us Historical Provider LAB BLOOD ORDERABLES Lianet l Result from Last 3 Months or Most Recently Relevant to Health Maintenance Insurance [facility] Medicare [facility] Medicare Care Teams Media Sales Executive Relationship Specialty Start Date End Date Jaylen Taylor CNP [address] [place] [address] PCP - General 04/04/23
--- OUTSIDE RECORDS SUMMARY | 2025-01-07 10:07 | XMS_ITS | Clinical Summary ---
Author Organization [facility] Address [address] [id number] Phone Care Team Providers Care Sales And Service Specialist Name Role Phone Des Sanchez MD Primary Care Provider [phone] Allergies Active Allergy Reactions Criticality Noted Date Comments Ibuprofen 11/22/2021 Oxycodone-Acetaminophen 11/22/2021 Medications albuterol 90 mcg/actuation inhaler Inhale 2 puffs into the lungs every 6 (six) hours as needed for wheezing. Active amLODIPine (NORVASC) 5 MG tablet Take 5 mg by mouth daily. Active atorvastatin (LIPITOR) 40 MG tablet Take 40 mg by mouth daily. Active cilostazol (PLETAL) 100 MG tablet Take 100 mg by mouth 2 (two) times a day. Active clopidogrel (PLAVIX) 75 mg tablet Take 75 mg by mouth daily. Active gabapentin (NEURONTIN) 400 MG capsule Take 400 mg by mouth 3 (three) times a day. Active aspirin 81 MG EC tablet Take 81 mg by mouth daily. Active hydrALAZINE (APRESOLINE) 25 MG tablet Take 25 mg by mouth 3 (three) times a day. Active levothyroxine (SYNTHROID, LEVOTHROID) 137 MCG tablet Take 137 mcg by mouth every morning. Active meloxicam (MOBIC) 15 MG tablet Take 15 mg by mouth daily. Active metFORMIN (GLUCOPHAGE) 500 MG tablet Take 500 mg by mouth 2 (two) times a day with meals. Active omeprazole (PRILOSEC) 20 mg TbEC Take 20 mg by mouth daily before breakfast. Active pramipexole (MIRAPEX) 0.125 MG tablet Take 0.125 mg by mouth. Active sertraline (ZOLOFT) 100 MG tablet Take 100 mg by mouth daily. Active cyanocobalamin, vitamin B-12, 1000 MCG tablet Take 1 tablet (1,000 mcg total) by mouth daily. 01/09/2022 Active nicotine (NICODERM CQ) 14 mg/[address] 1 patch onto the skin daily. 30 patch 01/09/2022 Active vitamins with ferrous fumarate- folic acid 28 mg iron- 800 mcg Tab Take 1 tablet by mouth daily. 01/08/2022 Active Active Problems Problem Noted Date Diagnosed Date Elevated troponin 01/06/2022 Assessment & Plan (01/08/2022 10:10 AM EDT): Troponin bump from 37-44, seen by cardiology. Most likely demand ischemia from hyperglycemia Hypoglycemia 01/05/2022 Assessment & Plan (01/08/2022 10:11 AM EDT): On glimepiride and metformin prior to admission. May be related to poor clearance of the sulfonylurea in setting of renal insufficiency --Dextrose infusion has been discontinued patient has been stable --Patient feels she has been taking her medication accurately. Does not believe she was taking excess medication --- Restart metformin only at discharge time stop sulfonylurea per Dr Holloway Hypertensive disorder Assessment & Plan (01/07/2022 4:43 PM EDT): Home regimen: amlodipine 5 mg daily along with hydralazine 25 mg 3 times daily. Hydralazine on hold due to low normal BPs, currently well controlled -- Continue amlodipine Neuropathy Assessment & Plan (01/06/2022 8:50 PM EDT): diabetic neuropathy contine gabapentin. Diabetes mellitus Assessment & Plan (01/08/2022 10:11 AM EDT): . Stable overnight off of glucose drip. Glucoses have ranged from 132-224 Disorder of thyroid Assessment & Plan (01/08/2022 10:10 AM EDT): Continue levothyroxine Chronic obstructive pulmonary disease Assessment & Plan (01/08/2022 10:09 AM EDT): Significant smoking history was COPD. Clinically stable only on albuterol as needed inhaler. No new concerns Smoking cessation encouraged and nicotine replacement prescribed Carotid stenosis, bilateral Assessment & Plan (01/08/2022 10:09 AM EDT): History of bilateral carotid stenosis status post stent. Significant risk factor due to her history of smoking. -Continue aspirin, Plavix, cilostazol and statin. Tachy-kamran syndrome Assessment & Plan (01/08/2022 10:11 AM EDT): A paced rhythm on EKG. Stable. Patient has a pacemaker and states need a new cardiology appointment for follow-up. She is due for battery change in [address] Henning inpt Restless leg syndrome Assessment & Plan (01/05/2022 10:23 PM EDT): Continue pramipexole Immunizations Immunization Administration Dates Next Due Tdap 11/22/2021 Family History Medical History Relation Comments Heart disease Father Relation Status Comments Father Social History Tobacco Use Types Packs/Day Years Used Date Smoking Tobacco: Every Day Cigarettes Alcohol Use Standard Drinks/Week Comments Not Currently 0 (1 standard drink = 0.6 oz pur e alcohol) Education Answer Date Recorded Are you interested in more education? Not on kalpana e 08/31/2022 Are you concerned about learning? Not on file 08/31/2022 No 08/31/2022 No 08/31/2022 Digital Access Answer Date Recorded No 09/29/2022 No 09/29/2022 Reliable internet access at home? Not on file 09/29/2022 Device with a working camera? Not on file Comments Unknown Sex and Gender Information Value Date Recorded Sex Assigned at Female 11/22/2021 6:19 PM EDT Legal Sex Female 6:07 PM EDT Gender Identity Female 11/22/2021 6:19 PM EDT Sexual Orientation Not on file Last Filed Vital Signs Vital Sign Reading Time Taken Comments Blood Pressure 173/60 01/08/2022 7:54 AM EDT Pulse 68 01/08/2022 7:54 AM EDT Temperature 36.4 C (97.5 F) 01/08/2022 7:54 AM EDT Respiratory Rate 16 01/08/2022 7:54 AM EDT Oxygen Saturation 93% 01/08/2022 7:54 AM EDT Inhaled Oxygen Concentration - - Weight 70.8 kg (156 lb) 01/07/2022 8:49 AM EDT Height 162.6 cm (5' 4 ) 01/05/2022 10:43 PM EDT Body Mass Index 26.78 01/05/2022 10:43 PM EDT Plan of Treatment Health Maintenance Due Date Last Done Comments BLOOD PRESSURE 1944 DEPRESSION SCREENING 1956 SMOKING Hx and SMOKELESS TOBACCO SCREENING 1957 PNEUMOCOCCAL VACCINES (50+ years) (1 of 2 - PCV) 09/26/1963 ZOSTER VACCINES (1 of 2) 1994 OSTEOPOROSIS SCREENING INITIAL (ONE-TIME) 2009 RSV VACCINE (1 - 1-dose 75+ series) 09/26/2019 DIABETIC EYE EXAM 01/05/2022 URINE MICROALBUMIN/CREATININE RATIO 01/05/2022 HEMOGLOBIN A1C 07/06/2022 01/06/2022 TSH LEVEL 01/06/2023 01/06/2022 CREATININE LEVEL 01/07/2023 01/07/2022, 08/2021, 01/06/2022, Additional history exists COVID-19 VACCINE (2023- season) 2024 Adult Td,Tdap Booster 11/23/2031 11/22/2021 HEPATITIS A VACCINES Aged Out No long er eligible based on patient's age to complete this topic HIB VACCINES Aged Out No longer eligi ble based on patient's age to complete this topic MENINGOCOCCAL VACCINES (ACWY) Aged Out No longer eligible based on patient's age to complete this topic MENINGOCOCCAL VACCINES (B) Aged Out N o longer eligible based on patient's age to complete this topic Medical Devices Not on file Procedures Procedure Name Priority Date/Time Associated Diagnosis Comments BASIC METABOLIC PANEL Routine 01/07/2022 6:04 AM EDT HEMOGLOBIN A1C Routine 01/06/2022 7:07 AM EDT TSH WITH REFLEX Routine 01/06/2022 7:07 AM EDT from Last 3 Months or Most Recently Relevant to Health Maintenance Results * (ABNORMAL) Basic metabolic panel (01/07/2022 6:04 AM EDT) [facility] SODIUM 138 133 - 146 mmol/L [facility] CHLORIDE 107 96 - 108 mmol/L [facility] POTASSIUM 4.3 3.3 - 5.1 mmol/L [facility] CO2 24 21 - 35 mmol/L [facility] BUN 14 6 - 19 mg/dL [facility] CREATININE 1.20 0.5 - 1.5 mg/dL [facility] GLUCOSE 242(H) 70 - 99 mg/dL [facility] CALCIUM 9.7 8.4 - 10.3 mg/dL [facility] EGFR 47(L) >59 mL/min/1.7 3m2 [facility] Comment:Estimated glomerular filtration rate calculated using the CKD-EPI refit equation. ANION GAP 11 10 - 20 mmol/L [facility] Blood 01/07/2022 6:04 AM EDT 01/07/2022 6:21 AM EDT us Zahida Gonzalez MD LAB BLOOD ORDERABLES Final Result Performing Organization Address City/[facility]/ZIP Co de Phone Number [address] [address] * TSH with reflex (01/06/2022 7:07 AM EDT) [facility] TSH 3.46 0.27 - 4.20 uIU/mL [facility] Blood 01/06/2022 7:07 AM EDT 01/06/2022 7:29 AM EDT us Elmer Ricks MD LAB BLOOD ORDERABLES Final Resu lt Performing Organization Address [facility]/ZIP Co de Phone Number [address] [address] * Hemoglobin A1c (01/06/2022 7:07 AM EDT) [facility] HEMOGLOBIN A1C 5.6 4.3 - 5.8 % [facility] 01/06/2022 7:07 AM EDT 01/06/2022 7:29 AM EDT Elmer Ricks MD LAB BLOOD ORDERABLES Final Resu lt [facility] [address] [place] [address] from Last 3 Months or Most Recently Relevant to Health Maintenance Insurance [employer] PPO MEDICARE REPLACEMENT [employer] PPO MEDICARE REPLACEMENT [employer] PPO MEDICARE REPLACEMENT [employer] O MEDICARE REPLACEMENT A[employer] O MEDICARE REPLACEMENT [employer] PPO MEDICARE REPLACEMENT [employer] PPO MEDICARE REPLACEMENT [employer] PPO MEDICARE REPLACEMENT [employer] PPO MEDICARE REPLACEMENT Advance Directives For more information, please contact: [phone] (9AM - 5PM [facility], Friday-Friday) * Full Code (Latest Code Status on File) Date Activated Date Inactivated Comments 01/05/2022 10:22 PM Question Answer Comments Code Status Confirmed With: Patient Code Status Communicated To: Inpatient Attending Care Teams Sales And Service Specialist Relationship Specialty Start Date End Date Des Sanchez MD [address] [place] [id number] PCP - General Internal Medicine 11/22/21 Additional Source Comments The information contained in this document represents components of the legal health record. It is not the complete legal health record.[facility]
--- OUTSIDE RECORDS SUMMARY | 2025-01-07 10:07 | XMS_ITS | Encounter Summary ---
Author Organization [facility] Address [address] [facility] [address] [place] [phone] Phone Care Team Providers Care Food Stand Manager Name Role Phone Des Sanchez MD Primary Care Provider [phone]- [phone] Encounter Details Date Type Department Care Team (Late st Contact Info) Description 01/05/2022 Procedure Pass [facility], Ct Scan - [address] [address] Social History Tobacco Use Types Packs/Day Years [...] 6:33 PM EDT Cici Burgos RN * [place] Suicide Severity Rating Scale (Screener/Recent Self-Report) Question [...] documented as of this encounter Care Teams Food Stand Manager Relationship Specialty Start Date End Date Des Sanchez MD [address] [place] [address] PCP - General Internal Medicine 11/22/21 documented as of this encounter Additional Source Comments The information contained in this document represents components of the legal health record. It is not the complete legal health record.[facility]
--- OUTSIDE RECORDS SUMMARY | 2025-01-07 10:07 | XMS_ITS | Encounter Summary ---
Author Organization Formerly [facility] Address [address] [facility] [address] [place] [address] Phone Care Team Providers Care Chief Writer Name Role Phone Des Sanchez MD Primary Care Provider +1- [phone] Encounter Details Date Type Department Care Team (Late st Contact Info) Description 01/05/2022 Procedure Pass [facility], Ct Scan - [address] [address] Social History Tobacco Use Types Packs/Day Years [...] 6:33 PM EDT Cici Burgos RN * [place] Suicide Severity Rating Scale (Screener/Recent Self-Report) Question [...] documented as of this encounter Care Teams Chief Writer Relationship Specialty Start Date End Date Des Sanchez MD [address] [place] [address] PCP - General Internal Medicine 11/22/21 documented as of this encounter Additional Source Comments The information contained in this document represents components of the legal health record. It is not the complete legal health record.[facility]
--- OUTSIDE RECORDS SUMMARY | 2025-01-07 10:07 | XMS_ITS | Continuity of Care Document ---
Author Organization [facility] [address] [facility] [address] [place] [address] Phone [phone] Care Team Providers Care Golf Course Keeper Name Role Phone Claudia York CNP Care Team Information Receive r [phone] Problems Active Problems Provider Date Osteoporosis Emanuel [...] Indications Ordering Provider Date Vitamin D (Ergocalciferol)1.25mg (06574 Ut) Capsules 1 tab by mouth every week 8caps Emanuel Cueva M.D. 06/20/2023 Lisinopril2.5mg Tablets Take 1 Tablet Orally Every Evening Unknown Clopidogrel Hbejguubv01mq Tablets Take 1 Tablet By Mouth Every Day Des Sanchez MD Amlodipine Ihykwdgd05fw Tablets Take 1 Tablet By Mouth Every Day Unknown Qxvkwnntdc080xr Tablets Take 1 Tablet By Mouth 2 Times A Day For 30 Days Claudia York CNP Ferrous Hglqgaj951(65Fe) mg Tablets Take 1 Tablet By Mouth 1 Time Each Day With Breakfast. Unknown Pramipexole Dihydrochloride0.125mg Tablets Take 2 By Mouth Daily Des Sanchez MD Czdrdqwjyh387ag Capsules Take 1 Capsule By Mouth Three Times A Day Unknown Sertraline RIA559zl Tablets Take 1 Tablet By Mouth Twice A Day Des Sanchez MD Metformin LWK969dy Tablets Take 1 Tablet By Mouth Twice A Day Des Sanchez MD Atorvastatin Vvicebh30qm Tablets Take 1 Tablet By Mouth Every Day Des Sanchez MD Levothyroxine Ilpqnr183tvg Tablets Take 1 Tablet By Mouth Every Day Des Sanchez MD Vital Signs Date Vital Result Comment 06/16/2023 9:37am BP Systolic 110 mmHg BP Diastolic 70 mmHg Heart Rate 72 /min Height 64 inches 5'4 Weight 128.12 lb BMI (Body Mass Index) 22.0 kg/m2 Results Test Acquired Date Facility Test Result H/L Range N ote Basic Metabolic Panel 06/16/2023 [facility] Glucose 102 mg/dL High (70-99) BUN 24 mg/dL High (8-23) Creatinine 1.3 mg/dL High (0.5-1.0) Sodium 140 mmol/L (133-145) Potassium 5.2 mmol/L (3.6-5.2) Chloride 105 mmol/L (98-107) Bicarbonate 20 mmol/L Low (22-29) Anion Gap 15 (4-17) Calcium 10.4 mg/dL (8.6-10.5 ) Estimated GFR Creatinine 41 ML/MIN/1.7 3M2 1 25Oh Vitamin D 06/16/2023 [facility] 25Oh Vitamin D 14.9 NG/ML Low (20-50) Albumin 06/16/2023 [facility] Albumin 4.6 GM/DL (3.4-4.8) PTH, Intact 06/16/2023 [facility] PTH, Intact 102 pg/mL High (15-65) Phosphorus 06/16/2023 [facility] Phosphorus 3.6 mg/dL (2.5-4.5) [...] E11.9 Type 2 diabetes mellitus* New Labs:* Pqblqjw-Sd-Xwthd, Ordered: 06/16/23 * Creat Clearance, Ordered: 06/16/23 * N-Telopeptide Cross Links, Urine, Ordered: 06/16/23 Functional Status Description No Information Available Mental Status Description No Information Available Referrals Description No Information Available
--- OUTSIDE RECORDS SUMMARY | 2025-01-07 10:07 | XMS_ITS | Patient Health Record ---
Author Organization [facility] Address [address] [place] [address] Care Team Providers Care Refrigeration Unit Repairer Name Role Phone Oscar Alicia MD Primary Care Provider Prashant Sibley Unavailable [phone] Allergies Allergen (clinical drug ingredient) Drug/Non Drug [...] HCl 500 MG 1 tablet with a harsi l Orally Once a day; Duration: 30 [...] confirmed Problem Information temporarily unavailable Atherosclerosis of [place] arteries of extremities with intermittent claudication, bilateral [...] Coverage Start Date Coverage End Date [facility] [address] [facility] [address] [place] [address] [id number] Pallavi Mukherjee Self - patient is the [...]
--- OUTSIDE RECORDS SUMMARY | 2025-01-07 10:07 | XMS_ITS | Encounter Summary ---
Author Organization [facility] Address [address] [facility] [address] [place] [address] Phone Care Team Providers Care Medical Delivery Driver Name Role Phone Des Sanchez MD Primary Care Provider [phone]- [phone] Encounter Details Date Type Department Care Team (Late st Contact Info) Description 01/05/2022 Procedure Pass [facility], Ct Scan - [address] [address] Social History Tobacco Use Types Packs/Day Years [...] 6:33 PM EDT Cici Burgos RN * [place] Suicide Severity Rating Scale (Screener/Recent Self-Report) Question [...] documented as of this encounter Care Teams Medical Delivery Driver Relationship Specialty Start Date End Date Des Sanchez MD [address] [place] [address] PCP - General Internal Medicine 11/22/21 documented as of this encounter Additional Source Comments The information contained in this document represents components of the legal health record. It is not the complete legal health record.[facility]
--- OUTSIDE RECORDS SUMMARY | 2025-01-07 10:07 | XMS_ITS | Encounter Summary ---
Author Organization [facility] Address [address] [place] [address] Phone Care Team Providers Care Bond Analyst Name Role Phone Jaylen Taylor CNP Primary Care Provider [phone] Encounter Details Date Type Department Care Team (Late st Contact Info) Description 04/22/2022 Telephone [facility] [address] [place] [address] Ilir Roca MD Social History [...] Lina Smith - 04/22/2022 4:13 PM EST Okay thank you, order was faxed over to [facility] * Telephone Encounter - Carmen Chamorro - [...] [facility] [address] [place] [phone] Elia Winters MD [address] [address] documented as of this encounter Visit Diagnoses Not on filedocumented in this encounter Care Teams Bond Analyst Relationship Specialty Start Date End Date Jaylen Taylor CNP [address] [place] [address] PCP - General 04/04/23 documented as of this encounter
--- OUTSIDE RECORDS SUMMARY | 2025-01-07 10:07 | XMS_ITS | Encounter Summary ---
Author Organization [facility] Address [address] [facility] [address] [place] [address] Phone Care Team Providers Care Tube And Manifold Builder Name Role Phone Des Sanchez MD Primary Care Provider [phone] Encounter Details Date Type Department Care Team (Late st Contact Info) Description 01/05/2022 Procedure Pass [facility], Ct Scan - [address] [address] Social History Tobacco Use Types Packs/Day Years [...] 6:33 PM EDT Cici Burgos RN * [place] Suicide Severity Rating Scale (Screener/Recent Self-Report) Question [...] documented as of this encounter Care Teams Tube And Manifold Builder Relationship Specialty Start Date End Date Des Sanchez MD [address] [place] [address] PCP - General Internal Medicine 11/22/21 documented as of this encounter Additional Source Comments The information contained in this document represents components of the legal health record. It is not the complete legal health record.[facility]
--- OUTSIDE RECORDS SUMMARY | 2025-01-07 10:07 | XMS_ITS | Encounter Summary ---
Author Organization [facility] Address [address] [facility] [address] [place] [address] Phone Care Team Providers Care Metal Ceiling Builder Name Role Phone Des Sanchez MD Primary Care Provider [phone]- [phone] Encounter Details Date Type Department Care Team (Late st Contact Info) Description 01/05/2022 Procedure Pass [facility], Ct Scan - [address] [address] Social History Tobacco Use Types Packs/Day Years [...] 6:33 PM EDT Cici Burgos RN * [place] Suicide Severity Rating Scale (Screener/Recent Self-Report) Question [...] documented as of this encounter Care Teams Metal Ceiling Builder Relationship Specialty Start Date End Date Des Sanchez MD [address] [place] [address] PCP - General Internal Medicine 11/22/21 documented as of this encounter Additional Source Comments The information contained in this document represents components of the legal health record. It is not the complete legal health record.[facility]
[2025-01-07 10:23] VITALS: PULSE 72; O2SAT 95
== END 2025-01-07 10:07 | disposition home or self-care (01) ==
LOC: HO.HPSW 09:24
PROVIDERS: PCP Nurse Practitioner Family; Visit Provider Nurse Practitioner Family
DX: J43.1 Panlobular emphysema (principal); F17.210 Nicotine dependence, cigarettes, uncomplicated; R91.1 Solitary pulmonary nodule
CPT/HCPCS: 94618; 99214

== ENCOUNTER → 2025-01-07 09:24 | Outpatient (BNVA) | payer MEDICARE, SELFPAY | PROVIDERS: PCP Nurse Practitioner Family; Visit Provider Nurse Practitioner Family | DX: J43.1 Panlobular emphysema (principal); R91.1 Solitary pulmonary nodule; F17.210 Nicotine dependence, cigarettes, uncomplicated | CPT/HCPCS: 94618; 99212 ==

== ENCOUNTER → 2025-01-26 13:03 | Outpatient (REF) | payer MEDICARE, SELFPAY ==
--- NOTE | 2025-01-26 13:05 | CA_ITS ---
Transthoracic Echocardiogram Patient (Last, First, Middle): Pallavi Mukherjee, Gender: Female Date of : 1945 Age: 79 Procedure Date: 01/26/2025 Procedure Type: Transthoracic Echocardiogram Location: OP Height: 162.56 cm Weight: 54.43 kg BSA: 1.57 m2 Heart Rate: bpm BP: 118 / 60 mmHg Manager Health: Referring MD: Joseph Nicholas MD Jewel Cupping Machine Operator: Joseph Nicholas MD Symptoms: I35.0 - Nonrheumatic aortic (valve) stenosis Study Quality: Fair ECG Rhythm: Sinus Conclusions: - 1. Low normal LV ejection fraction 50-55% with grade 2 diastolic dysfunction 2. Moderate aortic stenosis 3. Normal RV systolic pressure 4. No gross pericardial effusion Findings Left Ventricle Normal left ventricular size and systolic function. There is mildly increased left ventricular wall thickness. The visually estimated ejection fraction is between 50-55%. Spectral Doppler is indicative of an impaired relaxation filling pattern. Elevated filling pressures. E/E prime ratio is >15, consistent with elevated filling pressures. There is moderate septal asymmetric hypertrophy. Right Ventricle Normal right ventricular cavity size and systolic function. There is a pacemaker wire seen in the right ventricle. Atria The left atrium is mildly dilated. The right atrium is likely dilated. A pacemaker wire is identified in the right atrium. Aortic Valve There is moderate calcification of the aortic valve. There is moderate thickening of the aortic valve. There is moderate aortic valve stenosis. The peak aortic gradient is 37 mmHg.The mean gradient is 21 mmHg. The aortic valve area is 0.86 cm2. There is no aortic valve regurgitation. calculated dimensionless index is 0.30, most consistent with moderate aortic stenosis. Discrepancy between valve area and gradients most likely related to LVOT measurement Mitral Valve There is mild anterior and moderate posterior mitral leaflet thickening. There is mild anterior and mild posterior mitral annular calcification. There is mild mitral annular calcification. There is trace mitral valve regurgitation. There is no mitral valve stenosis. Pulmonic Valve The pulmonic valve was not well visualized. Tricuspid Valve Likely normal tricuspid valve structure and function. There is mild tricuspid valve regurgitation. The right ventricular systolic pressure is normal. The right ventricular systolic pressure is 31 mmHg. Normal right atrial pressure. There is no evidence of pulmonary hypertension. Great Vessels All visible segments of the aorta are normal in size. The pulmonary artery was not well visualized. There is no dilatation of the ascending aorta measuring 3.00 cm. Venous The inferior vena cava is normal in size and collapses greater than 50% with inspiration. Pericardium/Pleural There is no evidence of pericardial effusion. Prior Study Comparison Changes noted compared to prior study dated: 05/21/2023. aortic stenosis is moderate Measurements 2D Linear Measurements IVSd: 1.54 0.6-0.9/0.6-1.0 cm LVIDd: 3.66 3.9-5.3/4.2-5.9 cm LVIDd Index: 2.33 2.4-3.2/2.2-3.1 cm/m2 LVIDs: 2.69 2.0-3.6 cm LVPWd: 1.31 0.7-1.1 cm Ao Root: 2.80 2.1-3.5 cm LA Diam: 3.30 2.7-3.8/3.0-4.0 cm LAIDs Index: 2.10 1.5-2.3 cm/m2 LV Mass: 235.94 67-162/88-224 g LV Mass Index: 150.28 43-95/49-115 g/m2 LVOT Diam: 1.90 3.0+(-)1.3 cm 2D Systolic Function EF 4C: 56.20 >55% EF 2C: 47.50 >55% EF BiP: 52.80 >55% Mitral Valve MV VTI: 0.34 MV Pk Rylan: 1.43 MV Mn Rylan: 0.75 MV Pk Grad: 8.00 MV Mn Grad: 3.00 MV Pk E: 0.68 MV PK A: 1.23 MV Decel Time: 142.00 E/A: 0.60 E'Lateral: 2.83 E'Medial: 2.61 E/E' Med: 26.10 E/E' Lat: 24.10 PHT: 42.00 MVA PHT: 5.24 MVA Continuity: 1.81 Decel Zavala: 4.81 Aortic Valve AoV Pk Rylan: 3.03 AoV Mn Rylan: 2.18 AoV VTI: 0.72 AoV Pk Grad: 37.00 Aov Mn Grad: 21.00 ROSE Cont.VTI: 0.86 LVOT LVOT Pk Rylan: 0.85 LVOT Mn Rylan: 0.55 LVOT VTI: 0.22 LVOT Pk Grad: 3.00 LVOT Mn Grad: 1.00 LVOT Diam: 1.90 LVOT Area: 2.84 Diastolic Function MV Pk E: 0.68 MV Pk A: 1.23 E/A: 0.60 E'Medial: 2.61 E/E' Med: 26.10 E' Laterial: 2.83 E/E' Lat: 24.10 Right Ventricle TAPSE (mm): 22.00 Tricuspid Valve TR Pk Rylan: 2.65 TR Pk Grad: 28.00 RA Press: 3.00 RVSP: 31.00 Great Vessels Aorta Ao Root-2D: 2.80 2.0-3.7 cm Ao Asc: 3.00 2.1-3.4 cm Pulmonary Valve PV Pk Rylan: 0.79 Peak PV Grad: 2.00 Updated in Other Vendor System with Status of Final Joseph Nicholas MD electronically signed on 01/26/2025 4:22:20 PM with status of Final
--- OUTSIDE RECORDS SUMMARY | 2025-01-26 15:28 | XMS_ITS | Encounter Summary ---
Author Organization [facility] Address [address] [facility] [address] [place] [address] Phone Care Team Providers Care Global Analytics Head Name Role Phone Des Sanchez MD Primary Care Provider [phone]- [phone] Encounter Details Date Type Department Care Team (Late st Contact Info) Description 01/05/2022 Procedure Pass [facility], Ct Scan - [address] [address] Social History Tobacco Use Types Packs/Day Years [...] 6:33 PM EDT Cici Burgos RN * [place] Suicide Severity Rating Scale (Screener/Recent Self-Report) Question [...] documented as of this encounter Care Teams Global Analytics Head Relationship Specialty Start Date End Date Des Sanchez MD [address] [place] [address] PCP - General Internal Medicine 11/22/21 documented as of this encounter Additional Source Comments The information contained in this document represents components of the legal health record. It is not the complete legal health record.[facility]
--- OUTSIDE RECORDS SUMMARY | 2025-01-26 15:28 | XMS_ITS | Patient Health Record ---
Author Organization [facility] Address [address] [place] [address] Care Team Providers Care Boxer Operator Name Role Phone Oscar Alicia MD Primary Care Provider Prashant Sibley Unavailable [phone] Allergies Allergen (clinical drug ingredient) Drug/Non Drug [...] confirmed Problem Information temporarily unavailable Atherosclerosis of [place] arteries of extremities with intermittent claudication, bilateral [...] End Date [facility] [address] [facility] [address] [place] [phone] Pallavi Mukherjee Self - patient is the [...]
--- OUTSIDE RECORDS SUMMARY | 2025-01-26 15:28 | XMS_ITS | Clinical Summary ---
Author Organization [facility] it Address [address] [place] [address] Care Team Providers Care Lace Stripper Name Role Phone Landy Sutherland MD Primary Care Provider [phone] [phone] Surgical History Surgery Date Site/Laterality Comments OTHER SURGICAL HISTORY PROCEDURE: OR LAMNOTMY INCL W/DCMPRSN NRV ROOT 1 INTRSPC LUMBR; COMMENT: 3 back operations CAROTID ENDARTERECTOMY 2000 PROCEDURE: HISTORICAL CAROTID ENDART; COMMENT: right VAGINAL DELIVERY PROCEDURE: OR VAGINAL DELIVERY ONLY; COMMENT: x2 ABDOMINAL SURGERY age 22 PROCEDURE: OR UNLISTED PROCEDURE ABDOMEN PERITONEUM & OMENTUM; COMMENT: laparotomy with LSO for ruptured ectopic TONSILLECTOMY PROCEDURE: HISTORICAL TONSILLECTOMY Medical History Medical History Date Comments Esophageal reflux 03/01/2005 DX:Esophageal reflux Lumbago 03/01/2005 DX:Lumbago Thoracic aneurysm, ruptured ([facility]24, [facility] V28) 11/12/2004 DX:Thoracic aneurysm, ruptur ed ([facility]) Peripheral vascular disease, unspecified ([facility] V24) 11/09/2004 DX:Peripheral vascular disea se, unspecified ([facility]) Other dyspnea and respirator y abnormality 11/09/2004 DX:Other dyspnea and respira tory abnormality Sciatica 09/12/2004 DX:Sciatica Sinoatrial node dysfunction ([facility] V24, [facility] V28) 01/19/2004 DX:Sinoatrial node dysfuncti on ([facility]) Cervicalgia 01/04/2004 DX:Cervicalgia Palpitations 01/04/2004 DX:Palpitations Syncope [...] stated as uncontrolled(250.50) ([facility] V24, 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); COMMENT: Bilateral mild nuclear sclerosis. Type II or unspecified type diabetes mellitus with renal manifestations, not stated as uncontrolled(250.40) ([facility] V24, [facility] V28) 08/07/2007 DX:Type II or unspecified t ype diabetes mellitus with renal manifestations, not stated as uncontrolled(250.40) ([facility]); COMMENT: 07/10--Ogtt neg Intol Lisinopril CKD stage [...] DX:Weight loss Pacemaker DX:Pacemaker Peripheral vascular disease ([facility] V24) DX:Peripheral vascular disea se ([facility]) Family History Medical History Relation Name Comments [...] age to complete this topic Care Teams Lace Stripper Relationship Specialty Start Date End Date Landy Sutherland MD PCP - General 05/24/22
--- OUTSIDE RECORDS SUMMARY | 2025-01-26 15:28 | XMS_ITS | Encounter Summary ---
Author Organization [facility] Address [address] [facility] [address] [place] [address] Phone Care Team Providers Care Abrading Machine Tender Name Role Phone Des Sanchez MD Primary Care Provider [phone]- [phone] Encounter Details Date Type Department Care Team (Late st Contact Info) Description 01/05/2022 Procedure Pass [facility], Ct Scan - [address] [address] Social History Tobacco Use Types Packs/Day Years [...] 6:33 PM EDT Cici Burgos RN * [place] Suicide Severity Rating Scale (Screener/Recent Self-Report) Question [...] documented as of this encounter Care Teams Abrading Machine Tender Relationship Specialty Start Date End Date Des Sanchez MD [address] [place] [address] PCP - General Internal Medicine 11/22/21 documented as of this encounter Additional Source Comments The information contained in this document represents components of the legal health record. It is not the complete legal health record.[facility]
--- OUTSIDE RECORDS SUMMARY | 2025-01-26 15:28 | XMS_ITS | Clinical Summary ---
Author Organization [facility] Address [address] [place] [address] Phone Care Team Providers Care Director Style Name Role Phone Jaylen Taylor JEB Primary Care Provider [phone] Allergies Active Allergy Reactions Criticality Noted Date [...] Calculus of kidney 08/17/2005 04/04/2023 Overview (04/04/2023): 2001 Lumbago 08/17/2005 04/04/2023 Overview (04/04/2023): 2004---Lumbar disc [...] [facility] [address] [place] [phone] [place] [address] [place] [address] Health Maintenance Due Date Last Done Comments Pneumococcal Vaccine: 50+ Years (3 of 3 - PCV) 09/04/2010 09/04/2009, 06/04/2002 Diabetes: Ophthalmology Exam 01/01/2022 Diabetes: Pedal Pulse Checked 01/01/2022 Diabetes: Sensory Foot Exam 01/01/2022 Diabetes: Visual Foot Exam 01/01/2022 Diabetes: Hemoglobin A1C 2022 06/28/2022, 08/01/2022 Influenza Vaccine (#1) 2025 2, 03/11/2014, 01/20/2013, [...] Most Recently Relevant to Health Maintenance Insurance [facility] Medicare [facility] Medicare Care Teams Director Style Relationship Specialty Start Date End Date Jaylen Taylor CNP [address] [place] [address] PCP - General 04/04/23
--- OUTSIDE RECORDS SUMMARY | 2025-01-26 15:29 | XMS_ITS | Clinical Summary ---
Author Organization [facility] Address [address] [id number] Phone Care Team Providers Care Sawmill Or Timber Yard Worker Name Role Phone Des Sanchez MD Primary Care Provider [phone] Allergies Active Allergy Reactions Criticality Noted Date [...] 01/07/2023 01/07/2022, 08/2021, 01/06/2022, Additional history exists INFLUENZA VACCINE (#1) 2024 COVID-19 VACCINE ( season) 2025 Adult Td,Tdap Booster 11/23/2031 11/22/2021 HEPATITIS A [...] Basic metabolic panel (01/07/2022 6:04 AM EDT) SODIUM 138 133 - 146 mmol/L [facility] CHLORIDE 107 96 - 108 mmol/L [facility] POTASSIUM 4.3 3.3 - 5.1 mmol/L [facility] CO2 24 21 - 35 mmol/L [facility] BUN 14 6 - 19 mg/dL [facility] CREATININE 1.20 0.5 - 1.5 mg/dL [facility] GLUCOSE 242(H) 70 - 99 mg/dL [facility] CALCIUM 9.7 8.4 - 10.3 mg/dL [facility] EGFR 47(L) >59 mL/min/1.7 3m2 [facility] Comment:Estimated glomerular filtration rate calculated using the CKD-EPI refit equation. ANION GAP 11 10 - 20 mmol/L [facility] Blood 01/07/2022 6:04 AM EDT 01/07/2022 6:21 AM EDT us Zahida Gonzalez MD LAB BLOOD ORDERABLES Final Result [address] [address] * TSH with reflex (01/06/2022 7:07 AM EDT) TSH 3.46 0.27 - 4.20 uIU/mL [facility] Blood 01/06/2022 7:07 AM EDT 01/06/2022 7:29 AM EDT us Elmer Ricks MD LAB BLOOD ORDERABLES Final Resu lt Performing Organization Address City/[facility]/ZIP Co de Phone Number [address] [address] * Hemoglobin A1c (01/06/2022 7:07 AM EDT) HEMOGLOBIN A1C 5.6 4.3 - 5.8 % [facility] 01/06/2022 7:07 AM EDT 01/06/2022 7:29 AM EDT Elmer Ricks MD LAB BLOOD ORDERABLES Final Resu lt [facility] [address] [place] [address] from Last 3 Months or Most Recently Relevant to Health Maintenance Insurance [employer] O MEDICARE REPLACEMENT [employer] O MEDICARE REPLACEMENT AET[employer] PPO MEDICARE REPLACEMENT AET[employer] PPO MEDICARE REPLACEMENT AET[employer] PPO MEDICARE REPLACEMENT AET[employer] PPO MEDICARE REPLACEMENT AETNA PPO MEDICARE REPLACEMENT AET[employer] PPO MEDICARE REPLACEMENT [employer] PPO MEDICARE REPLACEMENT Advance Directives For more information, please contact: [phone] (9AM - 5PM [facility], Friday-Friday) * Full Code (Latest Code Status on File) Date Activated Date Inactivated Comments 01/05/2022 10:22 PM Question Answer Comments Code Status Confirmed With: Patient Code Status Communicated To: Inpatient Attending Care Teams Sawmill Or Timber Yard Worker Relationship Specialty Start Date End Date Des Sanchez MD [address] [place] [id number] PCP - General Internal Medicine 11/22/21 Additional Source Comments The information contained in this document represents components of the legal health record. It is not the complete legal health record.[facility]
--- OUTSIDE RECORDS SUMMARY | 2025-01-26 15:29 | XMS_ITS | Encounter Summary ---
Author Organization [facility] Address [address] [place] [address] Phone Care Team Providers Care Vat House Laborer Name Role Phone Jaylen Taylor CNP Primary Care Provider [phone] Encounter Details Date Type Department Care Team (Late st Contact Info) Description 04/22/2022 Telephone [facility] [address] [place] [address] Ilir Roca MD Social History [...] thank you, order was faxed over to [facility] * Telephone Encounter - Carmen [...] Visit [facility] [address] [place] [phone] Elia Winters MD [address] [address] documented as of this encounter Visit Diagnoses Not on filedocumented in this encounter Care Teams Vat House Laborer Relationship Specialty Start Date End Date Jaylen Taylor CNP [address] [place] [address] PCP - General 04/04/23 documented as of this encounter
--- OUTSIDE RECORDS SUMMARY | 2025-01-26 15:29 | XMS_ITS | Encounter Summary ---
Author Organization [facility] Address [address] [facility] [address] [place] [address] Phone Care Team Providers Care Private Household Worker Name Role Phone Des Sanchez MD Primary Care Provider [phone] Encounter Details Date Type Department Care Team (Late st Contact Info) Description 01/05/2022 Procedure Pass [facility], Ct Scan - [address] [address] Social History Tobacco Use Types Packs/Day Years [...] 6:33 PM EDT Cici Burgos RN * [place] Suicide Severity Rating Scale (Screener/Recent Self-Report) Question [...] documented as of this encounter Care Teams Private Household Worker Relationship Specialty Start Date End Date Des Sanchez MD [address] [place] [address] PCP - General Internal Medicine 11/22/21 documented as of this encounter Additional Source Comments The information contained in this document represents components of the legal health record. It is not the complete legal health record.[facility]
--- OUTSIDE RECORDS SUMMARY | 2025-01-26 15:29 | XMS_ITS | Continuity of Care Document ---
Author Organization [facility] [employer] [address] [facility] [address] [place] [address] Phone [phone] Care Team Providers Care Ux Design Manager Name Role Phone Claudia York CNP Care Team Information Receive r [phone] Problems Active Problems Provider Date Osteoporosis Emanuel [...] Indications Ordering Provider Date Vitamin D (Ergocalciferol)1.25mg (45706 Ut) Capsules 1 tab by mouth every week 8caps Emanuel Cueva M.D. 06/20/2023 Lisinopril2.5mg Tablets Take 1 Tablet Orally Every Evening Unknown Clopidogrel Nnyhfodhx30ar Tablets Take 1 Tablet By Mouth Every Day Des Sanchez MD Amlodipine Pjrijtcy82gp Tablets Take 1 Tablet By Mouth Every Day Unknown Ltyvqpussy020oo Tablets Take 1 Tablet By Mouth 2 Times A Day For 30 Days Claudia York CNP Ferrous Ksfaogs353(65Fe) mg Tablets Take 1 Tablet By Mouth 1 Time Each Day With Breakfast. Unknown Pramipexole Dihydrochloride0.125mg Tablets Take 2 By Mouth Daily Des Sanchez MD Vwjaximksv375yf Capsules Take 1 Capsule By Mouth Three Times A Day Unknown Sertraline JOZ467av Tablets Take 1 Tablet By Mouth Twice A Day Des Sanchez MD Metformin HWW777ur Tablets Take 1 Tablet By Mouth Twice A Day Des Sanchez MD Atorvastatin Vgafgia60vv Tablets Take 1 Tablet By Mouth Every Day Des Sanchez MD Levothyroxine Otxkqe720rbj Tablets Take 1 Tablet By Mouth Every Day Des Sanchez MD Vital Signs Date Vital Result Comment 06/16/2023 9:37am BP Systolic 110 mmHg BP Diastolic 70 mmHg Heart Rate 72 /min Height 64 inches 5'4 Weight 128.12 lb BMI (Body Mass Index) 22.0 kg/m2 Results Test Acquired Date Facility Test Result H/L Range N ote Basic Metabolic Panel 06/16/2023 [facility] Glucose 102 mg/dL High (70-99) BUN 24 mg/dL High (8-23) Creatinine 1.3 mg/dL High (0.5-1.0) Sodium 140 mmol/L (133-145) Potassium 5.2 mmol/L (3.6-5.2) Chloride 105 mmol/L (98-107) Bicarbonate 20 mmol/L Low (22-29) Anion Gap 15 (4-17) Calcium 10.4 mg/dL (8.6-10.5 ) Estimated GFR Creatinine 41 ML/MIN/1.7 3M2 1 25Oh Vitamin D 06/16/2023 [facility] 25Oh Vitamin D 14.9 NG/ML Low (20-50) Albumin 06/16/2023 [facility] Albumin 4.6 GM/DL (3.4-4.8) PTH, Intact 06/16/2023 [facility] PTH, Intact 102 pg/mL High (15-65) Phosphorus 06/16/2023 [facility] Phosphorus 3.6 mg/dL (2.5-4.5) [...] E11.9 Type 2 diabetes mellitus* New Labs:* [id number]-[id number], Ordered: 06/16/23 * Creat Clearance, Ordered: 06/16/23 * N-Telopeptide Cross Links, Urine, Ordered: 06/16/23 Functional Status Description No Information Available Mental Status Description No Information Available Referrals Description No Information Available
--- OUTSIDE RECORDS SUMMARY | 2025-01-26 15:29 | XMS_ITS | Encounter Summary ---
Author Organization [facility] Address [address] [facility] [address] [place] [address] Phone Care Team Providers Care Catholic Priest Name Role Phone Des Sanchez MD Primary Care Provider [phone] Encounter Details Date Type Department Care Team (Late st Contact Info) Description 01/05/2022 Procedure Pass [facility], Ct Scan - [address] [address] Social History Tobacco Use Types Packs/Day Years [...] 6:33 PM EDT Cici Burgos RN * [place] Suicide Severity Rating Scale (Screener/Recent Self-Report) Question [...] documented as of this encounter Care Teams Catholic Priest Relationship Specialty Start Date End Date Des Sanchez MD [address] [place] [address] PCP - General Internal Medicine 11/22/21 documented as of this encounter Additional Source Comments The information contained in this document represents components of the legal health record. It is not the complete legal health record.[facility]
--- OUTSIDE RECORDS SUMMARY | 2025-01-26 15:29 | XMS_ITS | Encounter Summary ---
Author Organization [facility] Address [address] [facility] [address] [place] [address] Phone Care Team Providers Care Cordwood Cutter Helper Name Role Phone Des Sanchez MD Primary Care Provider [phone] Encounter Details Date Type Department Care Team (Late st Contact Info) Description 01/05/2022 Procedure Pass [facility], Ct Scan - [address] [address] Social History Tobacco Use Types Packs/Day Years [...] 6:33 PM EDT Cici Burgos RN * [place] Suicide Severity Rating Scale (Screener/Recent Self-Report) Question [...] documented as of this encounter Care Teams Cordwood Cutter Helper Relationship Specialty Start Date End Date Des Sanchez MD [address] [place] [address] PCP - General Internal Medicine 11/22/21 documented as of this encounter Additional Source Comments The information contained in this document represents components of the legal health record. It is not the complete legal health record.[facility]
== END ==
LOC: HO.CARD 13:03
PROVIDERS: PCP Nurse Practitioner Family; Visit Provider Internal Medicine Cardiovascular Disease
DX: I35.0 Nonrheumatic aortic (valve) stenosis (principal)
CPT/HCPCS: 93306

== ENCOUNTER → 2025-01-26 13:05 | Outpatient (BNV) | payer MEDICARE, SELFPAY | PROVIDERS: PCP Nurse Practitioner Family; Visit Provider Internal Medicine Cardiovascular Disease | DX: I35.0 Nonrheumatic aortic (valve) stenosis (principal) | CPT/HCPCS: 93306 ==

== ENCOUNTER 2025-02-08 09:42 | Outpatient (AMB) | payer MEDICARE, SELFPAY ==
--- NOTE | 2025-02-08 09:51 | A.OFFPC_ITS ---
Vital Signs 02/08/25 09:57 02/08/25 10:27 Height 5 ft 4 in Weight 124 lb 6 oz BMI 21.3 BP 178/80 H 160/70 H Blood Pressure Location Rt brachial Rt brachial Position Sitting Sitting Respiration 16 Pulse 73 72 Pulse Source Pulse Oximeter Auscultation Temp 97.9 F Temp Source Oral Pulse Oximetry (%) 100 Oxygen Delivery Method Room Air Intake Visit Reasons: 3 mos HTN, anxiety, depression Intake Note: patient here for 3 month follow up on anxiety and depression. patient needs refill for amlodipine. Engine Lathe Tender Required: No Is last menstrual period known: No Post menopausal: No Patient : No Allergies acetaminophen (From Percocet) Allergy (Intermediate, Verified 02/08/25 10:14) Itching oxycodone (From Percocet) Allergy (Intermediate, Verified 02/08/25 10:14) Itching Seasonal Allergies Allergy (Intermediate, Verified 02/08/25 10:14) Itchy Eyes ibuprofen (From Motrin) Allergy (Unknown, Verified 02/08/25 10:14) Swelling wheat Adverse Reaction (Unknown, Verified 02/08/25 10:14) Diarrhea lactose Adverse Reaction (Verified 02/08/25 10:14) Diarrhea Medication List - Last Reconciled 02/08/25 by Jaylen Taylor CNP amlodipine 5 mg PO BID aspirin 81 mg PO DAILY atorvastatin 80 mg PO BEDTIME cetirizine (Allergy Relief (cetirizine)) 10 mg PO DAILY clopidogrel 75 mg PO DAILY 30 days cyanocobalamin (vitamin B-12) 1,000 mcg PO DAILY doxycycline hyclate 100 mg PO BID ezetimibe 10 mg PO DAILY famotidine 20 mg PO DAILY ferrous sulfate (Iron (ferrous sulfate)) 325 mg PO DAILY furosemide (Lasix) 20 mg PO DAILY gabapentin 600 mg PO BID ipratropium-albuterol 0.5 mg-3 mg(2.5 mg base)/3 mL 3 mL inhalation Q6H PRN levothyroxine 125 mcg PO DAILY 30 days metoprolol succinate ER 50 mg PO DAILY 30 days nicotine 1 patch transdermal Q24H pramipexole 0.25 mg (2 x 0.125 mg) PO BEDTIME sertraline 100 mg PO DAILY 90 days Tobacco use date assessed: 02/08/25 Fall risk assessment: 1 Fall in past year Last assessed Fall Risk: 02/08/25 Dental Screening Dental Screen Date: 02/08/25 Did you have a dental visit in the last 12 months?: No Did you have a dental problem in the last 6 months where you did not have access to dental care?: No Was dental information given to patient?: No HPI HPI Comments History of Present Illness Details 79-year-old female presents for hyperten marcella, anxiety, and depression follow-up. She admits to taking her medications without adverse reactions. She continues to receive skilled nurses 3 times weekly and her medications are prefilled. She notes that her anxiety and depression symptoms are generally well controlled. She reports persistent itching to her upper chest especially at night, left worse than right, ongoing for the past 2 weeks. [facility] Medical History Screening for lung cancer Colon cancer screening Normal physical examination, routine Viral upper respiratory illness Laboratory tests ordered as part of a complete physical exam (CPE) Cardiac pacemaker in situ Runny nose Smoking 1/2 pack a day or less SOB (shortness of breath) on exertion Smoking greater than 30 pack years Diarrhea Osteopenia Breast cancer screening Chronic diarrhea Skin tear of left upper arm without complication Aortic stenosis Restless leg syndrome No pertinent family history Hyperlipidemia Chronic back pain Osteoarthritis GERD (gastroesophageal reflux disease) Anxiety and depression Type 2 diabetes mellitus Hypertension CKD (chronic kidney disease) stage 3, GFR 30-59 ml/min Hypothyroidism Cataracts, bilateral COPD (chronic obstructive pulmonary disease) Deafness in right ear Stroke Surgical History History of esophagogastroduodenoscopy (EGD) H/O colonoscopy History of tonsillectomy History of appendectomy H/O: hysterectomy History of back surgery H/O thyroidectomy H/O endarterectomy S/P cardiac pacemaker procedure Family History Mother Bladder cancer Brother Bladder cancer Social History (Updated 01/07/25 @ 09:31 by Daphney Guillermo [facility]) Household Members: Children Housing: House Do you presently have visiting nurse or other home services: No Alcohol intake: never Patient Tobacco Use Status: Current everyday Tobacco user Tobacco use type: Cigarette Cigarette Packs Per Day: 0.25 Cigarettes Per Day: 5 Years Smoked: 70 e-Cigarette/Vaping Use: Former Use Second Hand Smoke Exposure: No Substance Use Type: Marijuana service: No Current occupational status: retired Current occupational exposures/hazards: No Cognitive needs: No Hearing needs: No Vision needs: No Questionnaire PHQ-9 Over the last 2 weeks, how often have you been bothered by any of the following problems? 1. Little interest or pleasure in doing things: several days 2. Feeling down, depressed, or hopeless: several days 3. Trouble falling or staying asleep, or sleeping too much: several days 4. Feeling tired or having little energy: more than half the days 5. Poor appetite or overeating: several days 6. Feeling bad about yourself - or that you are a failure or have let yourself or your family down: not at all 7. Trouble concentrating on things, such as reading the newspaper or watching television: several days 8. Moving or speaking so slowly that other people could have noticed. Or the opposite - being so fidgety or restless that you have been moving around a lot more than usual: not at all 9. Thoughts that you would be better off or of hurting yourself in some way: not at all Total score: 7 Depression Screening Interpretation: Positive Depression Screening Follow-up: Existing condition and In treatment Depression Screening Done: Yes [address]79 - PHQ-9 Billing: Yes Source: Developed by Drs. Bonifacio Bethea, Danni Villa, Rico Wilcox and colleagues, with an educational saranya from [employer]. Thrive Questionnaire Date Thrive assessed: 07/30/24 I am a: Patient What is your living situation today?: I have a steady place to live Within the past 12 months, did the food you bought not last and you didn't have the money to get more?: Never true Within the past 12 months, did you worry whether your food would run out before you got money to buy more?: Never true Do you have trouble paying for medicines?: Yes Do you have trouble getting transportation to medical appointments?: No Do you have trouble paying your heating and electricity bill?: No Do you have trouble taking care of your child, family member or friend?: No Do you have trouble with day-to-day activities such as bathing, preparing meals, shopping, managing finances, etc.?: No Are you currently unemployed and looking for a job?: No Are you interested in more education?: No Please select the resources that you would like help with: None Currently or been in a relationship where the following occur: No concerns reported THRIVE Score: 0 MARCELA-7 AMB Questionnaire MARCELA-7 Date MARCELA - 7 assessed: 02/08/25 Feeling nervous, anxious, or on edge: 0 = Not at all Not being able to stop or control worryin = Not at all Worrying too much about different things: 0 = Not at all Trouble relaxin = More than half the days Being so restless that it is hard to sit still: 1 = Several days Becoming easily annoyed or irritable: 0 = Not at all Feeling afraid as if something awful might happen: 0 = Not at all Total MARCELA-7 score (0-4 normal; 5-9 mild; 10-14 moderate; 15-21 severe): 3 Source: Developed by Drs. Bonifacio Bethea, Danni Villa, Rico Wilcox and colleagues, with an educational saranya from [employer]. MARCELA-7 Assessment Billing MARCELA-7 Assessment Tool: MARCELA-7 Assessment 60631 Review of Systems Const Details: Const Denies chills, Denies fatigue, Denies fever(s), Denies headache(s) and Denies weakness ENT Denies dizziness and Denies headache(s) Card Denies chest pain, Denies lightheadedness, Denies dyspnea and Denies other (Palpitations) Resp Denies cough, Denies dyspnea, Denies wheezing and Denies other ( shortness of breath) GI Denies abdominal pain, Denies melena, Denies hematochezia, Denies change in bowel habits, Denies dyspepsia and Denies nausea Denies hematuria and Denies dysuria Musc Denies abnormal gait, Denies myalgias, Denies arthralgias, Denies numbness and Denies tingling Skin/Breast Denies rash, Denies unusual bruising and Denies wounds Neuro Denies abnormal gait, Denies dizziness, Denies headache(s), Denies memory loss, Denies numbness, Denies Sensory deficit (Neuro), Denies tingling and Denies weakness Psych Denies anxiety, Denies depression, Denies memory loss Endo Denies cold intolerance, Denies fatigue, Denies heat intolerance, Denies polydipsia and Denies polyuria Aller/Immun Denies wheezing Physical exam (Primary Care) Vital Signs: Last Vital Signs Temp 97.9 F 02/08/25 09:57 Pulse 73 02/08/25 09:57 Resp 16 02/08/25 09:57 BP 178/80 H 02/08/25 09:57 Pulse Ox 100 02/08/25 09:57 Oxygen Delivery Method Room Air 02/08/25 09:57 BMI result Body Mass Index 21.3 Tobacco/Smoking Status: Tobacco use Status Tobacco use date assessed 02/08/25 02/08/25 10:02 Patient Tobacco Use Status Current everyday Tobacco 02/08/25 10:02 Tobacco use type Cigarette 02/08/25 09:53 e-Cigarette/Vaping Use Former Use 02/08/25 09:53 PHQ-9: PHQ-9 Score PHQ-9: Total score 7 02/08/25 10:02 Depression Screening Interpretation: Positive Depression Screening Follow-up: Existing condition and In treatment Thrive Assessment: Date of Thrive Assessment Date Thrive assessed 07/30/24 02/08/25 09:53 Currently or been in a relationship where the following occur: No concerns reported Const Other: General: no acute distress and well developed Nutritional Appearance: well nourished Orientation/consciousness: patient oriented x3 HENMT Head: Yes normocephalic and Yes atraumatic Eyes General: appearance normal, both eyes and all related structures Pupils: Equal, round and reactive pupils present EOM: EOMs intact bilaterally Resp Effort & Inspection: normal respiratory effort Auscultation: clear to auscultation bilaterally Cardio Rate: regular rate Rhythm: regular rhythm Heart sounds: S1 normal heart sound present, S2 normal heart sound present, no gallops, no murmurs and no rubs GI Palpation (GI): No Abdominal aortic bruit present, Soft to palpation, nontender, No hepatosplenomegaly present and No Rebound tenderness present Auscultation: normal bowel sounds General: Yes no CVA tenderness Back/Spine/Pelvis Back: no CVA tenderness Cervical Spine: cervical ROM normal and No Cervical spine tenderness Thoracic/Lumbar Spine: thoraco-lumbar ROM normal, No pain with thoraco-lumbar ROM, No thoracic spinal tenderness and No lumbar spinal tenderness Extrem General: Yes normal to inspection, No edema and No calf tenderness Skin General: warm and dry. Normal skin color. Normal skin turgor Lesions: no lesions Rashes: no rashes Trauma: no lacerations or abrasions Wounds: no wounds Nails: normal Neuro General: patient oriented x3, gait normal and no focal neuro deficit Cranial nerves: Yes Equal, round and reactive pupils present Cognition (Neuro): normal cognition Gait exam (Neuro): Normal gait present Sensory Exam: No Sensory deficit (Neuro) Psych Appearance: grossly normal Affect: normal affect Attitude: cooperative Thought process: Normal thought process present Coding Level of Care Code Est Pt Level 4 (43545) Complex EM visit Add On G2211 Diagnoses Primary hypertension I10 Hypertension type: primary hypertension Anxiety and depression F41.9; F32.A Itching L29.9 Additional Codes MARCELA-7 Assessment Billing - MARCELA-7 Assessment Tool: MARCELA-7 Assessment 86601 ([id number]) PHQ-9 - 84794 - PHQ-9 Billing: Yes ([id number]) Assessment & Plan Assessment & Plan (1) Hypertension: Code(s): I10 - Essential (primary) hypertension Category: Medical Qualifiers: Hypertension type: primary hypertension Qualified Code(s): I10 - Essential (primary) hypertension Plan: Resting blood pressure is 160/70, above goal of less than 130/80. Metoprolol succinate increased to 75 mg daily; advised to take as prescribed. Instructed on the risks, benefits, and potential adverse reactions of the medication. Low-sodium diet encouraged. Will check some labs today. Follow-up in 1 month for an extended physical exam and hypertension. Return sooner with symptoms or concerns. Verbalized understanding and agreed with the plan. (2) Anxiety and depression: Code(s): F41.9 - Anxiety disorder, unspecified; F32.A - Depression, unspecified Category: Medical Plan: Anxiety and depressive symptoms have generally well controlled. Continue current treatment regimen. PHQ-9 score revealed mild anxiety, MARCELA-7 score is normal. Continue current treatment regimen. Routine exercise encouraged. Follow-up with symptoms or concerns. Verbalized understanding and agreed with the plan. (3) Itching: Code(s): L29.9 - Pruritus, unspecified Category: Medical Plan: She reports persistent itching to her upper chest especially at night, left worse than right, ongoing for the past 2 weeks. Normal skin exam. No rash noted. Hydrocortisone cream as prescribed. Follow-up with worsening or new symptoms. Verbalized understanding and agreed with the plan. Orders: Orders Vitamin D 25-OH Total Today Z00.00 - Encounter for general adult medical examination without abnormal findings Hemoglobin A1c Today Z00.00 - Encounter for general adult medical examination without abnormal findings Potassium Today Z00.00 - Encounter for general adult medical examination without abnormal findings TSH reflex Free T4 Today Z00.00 - Encounter for general adult medical examination without abnormal findings Microalbumin, Random (w Creat) Today Z00.00 - Encounter for general adult medical examination without abnormal findings Medications: New hydrocortisone 1% 1 appl topical BID PRN 28.35 grams 1RF itching metoprolol succinate ER 25 mg PO DAILY 30 tabs 3RF 30 days
[2025-02-08 09:57] VITALS: BP 178/80; PULSE 73; RESP 16; TEMP 36.6; O2SAT 100; BMI 21.3
[2025-02-08 10:27] VITALS: BP 160/70; PULSE 72
--- OUTSIDE RECORDS SUMMARY | 2025-02-08 11:07 | XMS_ITS | Encounter Summary ---
Author Organization [facility] Address [address] [facility] [address] [place] [address] Phone Care Team Providers Care Bar Examiner Name Role Phone Des Sanchez MD Primary Care Provider +1- [phone] Encounter Details Date Type Department Care Team (Late st Contact Info) Description 01/05/2022 Procedure Pass [facility], Ct Scan - [address] [address] Social History Tobacco Use Types Packs/Day Years [...] 6:33 PM EDT Cici Burgos RN * [place] Suicide Severity Rating Scale (Screener/Recent Self-Report) Question [...] documented as of this encounter Care Teams Bar Examiner Relationship Specialty Start Date End Date Des Sanchez MD [address] [place] [address] PCP - General Internal Medicine 11/22/21 documented as of this encounter Additional Source Comments The information contained in this document represents components of the legal health record. It is not the complete legal health record.[facility]
--- OUTSIDE RECORDS SUMMARY | 2025-02-08 11:07 | XMS_ITS | Encounter Summary ---
Author Organization [facility] Address [address] [facility] [address] [place] [address] Phone Care Team Providers Care Strategies Analyst Name Role Phone Des Sanchez MD Primary Care Provider +1- [phone] Encounter Details Date Type Department Care Team (Late st Contact Info) Description 01/05/2022 Procedure Pass [facility], Ct Scan - [address] [address] Social History Tobacco Use Types Packs/Day Years [...] 6:33 PM EDT Cici Burgos RN * [place] Suicide Severity Rating Scale (Screener/Recent Self-Report) Question [...] documented as of this encounter Care Teams Strategies Analyst Relationship Specialty Start Date End Date Des Sanchez MD [address] [place] [address] PCP - General Internal Medicine 11/22/21 documented as of this encounter Additional Source Comments The information contained in this document represents components of the legal health record. It is not the complete legal health record.[facility]
--- OUTSIDE RECORDS SUMMARY | 2025-02-08 11:07 | XMS_ITS | Encounter Summary ---
Author Organization [facility] Address [address] [place] [address] Phone Care Team Providers Care Personal Injury Paralegal Name Role Phone Jaylen Taylor CNP Primary Care Provider Encounter Details Date Type Department Care Team (Late st Contact Info) Description 04/22/2022 Telephone [facility] [address] [place] [address] Ilir Roca MD Social History [...] thank you, [place] [facility] * Telephone Encounter - Carmen Chamorro - [...] Visit [facility] [address] [place] [id number] Elia Winters MD [address] [address] documented as of this encounter Visit Diagnoses Not on filedocumented in this encounter Care Teams Personal Injury Paralegal Relationship Specialty Start Date End Date Jaylen Taylor CNP [address] [place] [address] PCP - General 04/04/23 documented as of this encounter
--- OUTSIDE RECORDS SUMMARY | 2025-02-08 11:07 | XMS_ITS | Patient Health Record ---
Author Organization [facility] Address [address] [place] [address] Care Team Providers Care Supervisor Edging Name Role Phone Oscar Alicia MD Primary Care Provider Prashant Sibley Unavailable [phone] Allergies Allergen (clinical drug ingredient) Drug/Non Drug [...] confirmed Problem Information temporarily unavailable Atherosclerosis of [place] arteries of extremities with intermittent claudication, bilateral [...] Coverage Start Date Coverage End Date [facility] [address] [facility] [address] [place] [address] [id number] Pallavi Mukherjee Self - patient is the [...]
--- OUTSIDE RECORDS SUMMARY | 2025-02-08 11:07 | XMS_ITS | Encounter Summary ---
Author Organization [facility] Address [address] [facility] [address] [place] [address] Phone Care Team Providers Care Practice Managers Name Role Phone Des Sanchez MD Primary Care Provider +1- [phone] Encounter Details Date Type Department Care Team (Late st Contact Info) Description 01/05/2022 Procedure Pass [facility], Ct Scan - [address] [address] Social History Tobacco Use Types Packs/Day Years [...] 6:33 PM EDT Cici Burgos RN * [place] Suicide Severity Rating Scale (Screener/Recent Self-Report) Question [...] documented as of this encounter Care Teams Practice Managers Relationship Specialty Start Date End Date Des Sanchez MD [address] [place] [address] PCP - General Internal Medicine 11/22/21 documented as of this encounter Additional Source Comments The information contained in this document represents components of the legal health record. It is not the complete legal health record.[facility]
--- OUTSIDE RECORDS SUMMARY | 2025-02-08 11:07 | XMS_ITS | Encounter Summary ---
Author Organization [facility] Address [address] [facility] [address] [place] [address] Phone Care Team Providers Care Nonprofit Manager Name Role Phone Des Sanchez MD Primary Care Provider +1- [phone] Encounter Details Date Type Department Care Team (Late st Contact Info) Description 01/05/2022 Procedure Pass [facility], Ct Scan - [address] [address] Social History Tobacco Use Types Packs/Day Years [...] 6:33 PM EDT Cici Burgos RN * [place] Suicide Severity Rating Scale (Screener/Recent Self-Report) Question [...] documented as of this encounter Care Teams Nonprofit Manager Relationship Specialty Start Date End Date Des Sanchez MD [address] [place] [address] PCP - General Internal Medicine 11/22/21 documented as of this encounter Additional Source Comments The information contained in this document represents components of the legal health record. It is not the complete legal health record.[facility]
--- OUTSIDE RECORDS SUMMARY | 2025-02-08 11:07 | XMS_ITS | Encounter Summary ---
Author Organization [facility] Address [address] [facility] [address] [place] [address] Phone Care Team Providers Care Furnace Combustion Analyst Name Role Phone Des Sanchez MD Primary Care Provider +1- [phone] Encounter Details Date Type Department Care Team (Late st Contact Info) Description 01/05/2022 Procedure Pass [facility], Ct Scan - [address] [address] Social History Tobacco Use Types Packs/Day Years [...] 6:33 PM EDT Cici Burgos RN * [place] Suicide Severity Rating Scale (Screener/Recent Self-Report) Question [...] documented as of this encounter Care Teams Furnace Combustion Analyst Relationship Specialty Start Date End Date Des Sanchez MD [address] [place] [address] PCP - General Internal Medicine 11/22/21 documented as of this encounter Additional Source Comments The information contained in this document represents components of the legal health record. It is not the complete legal health record.[facility]
--- OUTSIDE RECORDS SUMMARY | 2025-02-08 11:07 | XMS_ITS | Continuity of Care Document ---
Author Organization [facility] [address] [facility] [address] [place] [address] Phone [phone] Care Team Providers Care Brooch And Bracelet Maker Name Role Phone Claudia York CNP Care Team Information Receive r [phone] Problems Active Problems Provider Date Osteoporosis Emanuel [...] Indications Ordering Provider Date Vitamin D (Ergocalciferol)1.25mg ([address] Ut) Capsules 1 tab by mouth every week 8caps Emanuel Cueva M.D. 06/20/2023 Lisinopril2.5mg Tablets Take 1 Tablet Orally Every Evening Unknown Clopidogrel Lcvspkrqn52kr Tablets Take 1 Tablet By Mouth Every Day Des Sanchez MD Amlodipine Oagwijzr44eb Tablets Take 1 Tablet By Mouth Every Day Unknown Ywbnmdqihy148nf Tablets Take 1 Tablet By Mouth 2 Times A Day For 30 Days Claudia York CNP Ferrous Ptivkqr503(65Fe) mg Tablets Take 1 Tablet By Mouth 1 Time Each Day With Breakfast. Unknown Pramipexole Dihydrochloride0.125mg Tablets Take 2 By Mouth Daily Des Sanchez MD Tfvjzlzpxa366cc Capsules Take 1 Capsule By Mouth Three Times A Day Unknown Sertraline HMQ834wq Tablets Take 1 Tablet By Mouth Twice A Day Des Sanchez MD Metformin PCH035hy Tablets Take 1 Tablet By Mouth Twice A Day Des Sanchez MD Atorvastatin Jvoufin79py Tablets Take 1 Tablet By Mouth Every Day Des Sanchez MD Levothyroxine Gzjqvt691fmd Tablets Take 1 Tablet By Mouth Every Day Des Sanchez MD Vital Signs Date Vital Result Comment 06/16/2023 9:37am BP Systolic 110 mmHg BP Diastolic 70 mmHg Heart Rate 72 /min Height 64 inches 5'4 Weight 128.12 lb BMI (Body Mass Index) 22.0 kg/m2 Results Test Acquired Date Facility Test Result H/L Range N ote Basic Metabolic Panel 06/16/2023 [facility] Glucose 102 mg/dL High (70-99) BUN 24 mg/dL High (8-23) Creatinine 1.3 mg/dL High (0.5-1.0) Sodium 140 mmol/L (133-145) Potassium 5.2 mmol/L (3.6-5.2) Chloride 105 mmol/L (98-107) Bicarbonate 20 mmol/L Low (22-29) Anion Gap 15 (4-17) Calcium 10.4 mg/dL (8.6-10.5 ) Estimated GFR Creatinine 41 ML/MIN/1.7 3M2 1 25Oh Vitamin D 06/16/2023 [facility] 25Oh Vitamin D 14.9 NG/ML Low (20-50) Albumin 06/16/2023 [facility] Albumin 4.6 GM/DL (3.4-4.8) PTH, Intact 06/16/2023 [facility] PTH, Intact 102 pg/mL High (15-65) Phosphorus 06/16/2023 [facility] Phosphorus 3.6 mg/dL [...] E11.9 Type 2 diabetes mellitus* New Labs:* Tkmmheb-Ew-Nmcqg, Ordered: 06/16/23 * Creat Clearance, Ordered: 06/16/23 * N-Telopeptide Cross Links, Urine, Ordered: 06/16/23 Functional Status Description No Information Available Mental Status Description No Information Available Referrals Description No Information Available
--- OUTSIDE RECORDS SUMMARY | 2025-02-08 11:07 | XMS_ITS | Clinical Summary ---
Author Organization [facility] ity Address [address] [place] [address] Care Team Providers Care Bag Machine Operator Helper Name Role Phone Landy Sutherland MD Primary Care Provider [phone] Surgical History Surgery Date Site/Laterality Comments OTHER SURGICAL HISTORY PROCEDURE: [place] LAMNOTMY INCL W/DCMPRSN NRV ROOT 1 INTRSPC LUMBR; COMMENT: 3 back operations CAROTID ENDARTERECTOMY 2000 PROCEDURE: HISTORICAL CAROTID ENDART; COMMENT: right VAGINAL DELIVERY PROCEDURE: [place] VAGINAL DELIVERY ONLY; COMMENT: x2 ABDOMINAL SURGERY age 22 PROCEDURE: [place] UNLISTED PROCEDURE ABDOMEN PERITONEUM & OMENTUM; COMMENT: laparotomy with LSO for ruptured ectopic TONSILLECTOMY PROCEDURE: HISTORICAL TONSILLECTOMY Medical History Medical History Date Comments Esophageal reflux 03/01/2005 DX:Esophageal reflux Lumbago 03/01/2005 DX:Lumbago Thoracic aneurysm, ruptured ([facility] V24, [facility] V28) 11/12/2004 DX:Thoracic aneurysm, ruptur ed ([facility]) Peripheral vascular disease, unspecified ([facility] V24) 11/09/2004 DX:Peripheral vascular disea se, unspecified ([facility]) Other dyspnea and respirator y abnormality 11/09/2004 DX:Other dyspnea and respira tory abnormality Sciatica 09/12/2004 DX:Sciatica Sinoatrial node dysfunction ([facility] V24, [facility] V28) 01/19/2004 DX:Sinoatrial node dysfuncti on ([facility]) Cervicalgia 01/04/2004 DX:Cervicalgia Palpitations 01/04/2004 [...] with ophthalmic manifestations, not stated as uncontrolled(250.50) ([facility] V24, [facility] V28) 07/15/2012 DX:Type II or unspecified ty pe diabetes mellitus with ophthalmic manifestations, not stated as uncontrolled(250.50) ([facility]); COMMENT: Bilateral mild nuclear sclerosis. Type II or unspecified type diabetes mellitus with renal manifestations, not stated as uncontrolled(250.40) ([facility] V24, [facility] V28) 08/07/2007 DX:Type II or unspecified t ype diabetes mellitus with renal manifestations, not stated as uncontrolled(250.40) ([facility]); COMMENT: 07/10--Ogtt neg Intol Lisinopril [...] DX:Weight loss Pacemaker DX:Pacemaker Peripheral vascular disease ([facility] V24) DX:Peripheral vascular disea se ([facility]) Family History Medical History Relation [...] age to complete this topic Care Teams Bag Machine Operator Helper Relationship Specialty Start Date End Date Landy Sutherland MD PCP - General 05/24/22
--- OUTSIDE RECORDS SUMMARY | 2025-02-08 11:07 | XMS_ITS | Clinical Summary ---
Author Organization [facility] Address [address] [place] [address] Phone Care Team Providers Care Senior Piping Designer Name Role Phone Jaylen Taylor JEB Primary Care Provider [phone] Allergies Active Allergy Reactions Criticality Noted Date [...] Office Visit [facility] [address] [place] [phone] [place] [address] [place] [address] Health Maintenance Due Date Last Done [...] 10.1 8.7 - 10.7 mg/dL eGFR Non-Afr [place]i 33 Total Bilirubin 0.3 MG/DL ALT (SGPT) 12 U/L AST (SGOT) 12 U/L Alkaline Phosphatase 80 U/L Hemoglobin A1C 6.0 4.0 - 6.0 12/11/2021 Historical Provider LAB BLOOD ORDERABLES Lianet l Result from Last 3 Months or Most Recently Relevant to Health Maintenance Insurance [facility] Medicare [facility] Medicare Care Teams Senior Piping Designer Relationship Specialty Start Date End Date Jaylen Taylor CNP [address] [place] [address] PCP - General 04/04/23
--- OUTSIDE RECORDS SUMMARY | 2025-02-08 11:07 | XMS_ITS | Clinical Summary ---
Author Organization [facility] Address [address] [id number] Phone Care Team Providers Care Forensic Audit Expert Name Role Phone Des Sanchez MD Primary Care Provider +1- [phone] Allergies Active Allergy Reactions Criticality Noted Date [...] EDT) SODIUM 138 133 - 146 mmol/L [facility] CHLORIDE 107 96 - 108 mmol/L [facility] POTASSIUM 4.3 3.3 - 5.1 mmol/L [facility] CO2 24 21 - 35 mmol/L [facility] BUN 14 6 - 19 mg/dL [facility] CREATININE 1.20 0.5 - 1.5 mg/dL [facility] GLUCOSE 242(H) 70 - 99 mg/dL [facility] CALCIUM 9.7 8.4 - 10.3 mg/dL [facility] EGFR 47(L) >59 mL/min/1.7 3m2 [facility] Comment:Estimated glomerular filtration rate calculated using the CKD-EPI refit equation. ANION GAP 11 10 - 20 mmol/L [facility] Blood 01/07/2022 6:04 AM EDT 01/07/2022 6:21 AM EDT us Zahida Gonzalez MD LAB BLOOD ORDERABLES Final Result [address] [address] * TSH with reflex (01/06/2022 7:07 AM EDT) TSH 3.46 0.27 - 4.20 uIU/mL [facility] Blood 01/06/2022 7:07 AM EDT 01/06/2022 7:29 AM EDT us Elmer Ricks MD LAB BLOOD ORDERABLES Final Resu lt Performing Organization Address City/[facility]/ZIP Co de Phone Number [address] [address] * Hemoglobin A1c (01/06/2022 7:07 AM EDT) HEMOGLOBIN A1C 5.6 4.3 - 5.8 % [facility] 01/06/2022 7:07 AM EDT 01/06/2022 7:29 AM EDT Elmer Ricks MD LAB BLOOD ORDERABLES Final Resu lt [facility] [address] [place] [address] from Last 3 Months or Most Recently Relevant to Health Maintenance Insurance [employer] O MEDICARE REPLACEMENT [employer] O MEDICARE REPLACEMENT [employer] PPO MEDICARE REPLACEMENT [employer] PPO MEDICARE REPLACEMENT [employer] PPO MEDICARE REPLACEMENT [employer] PPO MEDICARE REPLACEMENT [employer] PPO MEDICARE REPLACEMENT [employer] PPO MEDICARE REPLACEMENT [employer] PPO MEDICARE REPLACEMENT Advance Directives For more information, please contact: [phone] (9AM - 5PM [facility], Friday-Friday) * Full Code (Latest Code Status on File) Date Activated Date Inactivated Comments 01/05/2022 10:22 PM Question Answer Comments Code Status Confirmed With: Patient Code Status Communicated To: Inpatient Attending Care Teams Forensic Audit Expert Relationship Specialty Start Date End Date Des Sanchez MD [address] [place] [address] PCP - General Internal Medicine 11/22/21 Additional Source Comments The information contained in this document represents components of the legal health record. It is not the complete legal health record.[facility]
== END 2025-02-08 10:44 | disposition home or self-care (01) ==
LOC: HO.HMCFM 09:43
PROVIDERS: PCP Nurse Practitioner Family; Visit Provider Nurse Practitioner Family
DX: I10 Essential (primary) hypertension (principal); F41.9 Anxiety disorder, unspecified; F32.A Depression, unspecified; L29.9 Pruritus, unspecified

== ENCOUNTER 2025-02-08 09:42 | Outpatient (REF) | payer MEDICARE, SELFPAY ==
[2025-02-08 14:23] LABS: Appearance Urine Clear; Glucose Urine UA Negative (Negative); PH 6.0 (5.0-9.0); Specific Gravity - Urine 1.015 (1.005-1.025); UMIC TRIGGER UACC YES
[2025-02-08 14:42] LABS: MANUAL DIFF FLAG NO
[2025-02-08 14:44] LABS: Hematocrit 35.7 % (37.0-47.0); Hemoglobin 11.8 g/dl (12.0-16.0); Imm Gran Abs Auto 0.03 X10*3/uL (0.00-0.03); Imm Gran Pct Auto 0.5 % (0.0-0.4); Lymphocytes Absolute Auto 0.9 X10*3/uL (1.2-4.9); Mean Corpuscular HGB Conc 33.1 g/dl (31.0-35.0); Mean Corpuscular Hemoglobin 31.3 pg (27.0-33.0); Mean Corpuscular Volume 94.7 fL (80.0-98.0); NRBC Abs Auto 0.000 X10*3/uL (0.0-0.012); NRBC Pct Auto 0.0 /100WBC (0.0-0.2); Platelet Count 207 X10*3/uL (160-400); Red Blood Count 3.77 X10*6/uL (4.20-5.50); White Blood Count 6.5 X10*3/uL (4.8-10.8)
[2025-02-08 15:11] LABS: Calcium 10.3 mg/dL (8.4-10.2); Estimated Glomerular Filt Rate 34; Magnesium 1.9 mg/dL (1.6-2.6); Potassium 5.5 mmol/L (3.3-5.1)
[2025-02-08 15:31] LABS: Microalbum/Creatinine Ratio Ur 1898.7 ug/mg cr (<30)
== END 2025-02-08 09:43 | disposition home or self-care (01) ==
LOC: HO.WFDLDS 09:42
PROVIDERS: Internal Medicine Medical Oncology; PCP Nurse Practitioner Family; Visit Provider Nurse Practitioner Family
DX: Z09 Encounter for follow-up examination after completed treatment for conditions other than malignant neoplasm (principal); Z13.1 Encounter for screening for diabetes mellitus; F41.9 Anxiety disorder, unspecified; F32.A Depression, unspecified; L29.9 Pruritus, unspecified; D64.9 Anemia, unspecified; E83.52 Hypercalcemia; I12.9 Hypertensive chronic kidney disease with stage 1 through stage 4 chronic kidney disease, or unspecified chronic kidney disease; N18.32 Chronic kidney disease, stage 3b; E87.5 Hyperkalemia; Z00.00 Encounter for general adult medical examination without abnormal findings
CPT/HCPCS: 36415; 81001; 82043; 82306; 82310; 82565; 82570; 83036; 83735; 84100; 84132; 84443; 85025; 96127; 99212

== ENCOUNTER → 2025-02-10 09:54 | Outpatient (REF) | payer MEDICARE, SELFPAY ==
--- NOTE | ~2025-02-10 | NM_ITS ---
Lexiscan Myocardial perfusion study Indication: Heart failure with recent pulmonary edema to evaluate for myocardial ischemia Technique: The patient was brought in for a Lexiscan perfusion study on 02/10/2025 and was injected 0.4 mg of Lexiscan intravenously. Within a minute of this injection 25 mCi of sestamibi was given intravenously. Images were obtained using the SPECT gamma camera interlaced with the gating device. Images were obtained in supine position. Resting perfusion study was performed on 02/11/2025. Patient was administered 25 mCi of sestamibi intravenously at rest. Images were then obtained in supine position. Images obtained without without CT attenuation. Total DLP 65 mGy-cm. Images were processed with the software and compared side to side in short axis, horizontal long axis and vertical long axis views. Findings: The stress perfusion study showed both attenuated as well as nonattenuated images show moderately large area of severely reduced uptake in the lateral and inferolateral wall of the LV myocardium extending to the apex and inferoapical wall.. The gated study shows reduced LV systolic function with calculated LVEF of 39%. LV cavity is mildly dilated in size. The gated study shows reduced lateral wall thickening and contraction of segments. Resting study shows both attenuated as well as nonattenuated images show partially reversible defect of the lateral wall. Gating at rest reveals lateral wall motion with ejection fraction at 37%. The findings are consistent with large area of partially reversible lateral and inferolateral defect suggestive of ischemia could represent severe ischemia.. NM/NM jayla perf SPECT rest & str Impression: 1. Myocardial perfusion imaging study shows large area of partially reversible lateral inferolateral defect suggestive ischemia and circumflex territory 2. Gated LVEF is 39% 3. Transient ischemic dilatation not present but LV cavity is dilated Nondiagnostic changes on EKG. Electronically signed by: Joseph Nicholas MD 02/11/2025 03:41 PM EDT
--- NOTE | 2025-02-10 09:57 | CA_ITS ---
Acquisition Time: 2025-02-10 10:02:05 Total Exercise Time: 00:02:00 Test Indications: Dyspnea Medications: SEE H&P Protocol: LEXISCAN Max HR: 107 BPM 76% of Pred: 140 BPM Max BP: 154/78 mmHG Max Work Load: 1.0 METS Pharmacological stress test with Lexiscan injection, while sitting and squeezing ball, with severe shortness of breath, without arrythmia, with normotensive response to injection, with nondiagnostic EKG for ischemia. Post injection she was given O2 2 Liters with nasal cannula and when able, was treated with Aminophylline 75mg IVP to reverse Lexiscan. She had nausea and dry heaves. By 4 min recovery she was feeling much better. She was recovered for 8 min and breathing at baseline, nausea resolved, not requiring O2.. Lung sounds without wheezing, There are fine rales in left base which were present at baseline as well. Nuclear images pending. Transported to nuclear medicine via wheelchair. Test reviewed with Dr Nicholas Referred By: Joseph Nicholas Electronically Signed By: LISA HILL
== END ==
LOC: HO.CARD 09:54
PROVIDERS: PCP Nurse Practitioner Family; Visit Provider Internal Medicine Cardiovascular Disease
DX: I50.32 Chronic diastolic (congestive) heart failure (principal)
CPT/HCPCS: 78452; 93017; A9500; J0280; J2785

== ENCOUNTER → 2025-02-10 09:57 | Outpatient (BNV) | payer MEDICARE, SELFPAY | PROVIDERS: PCP Nurse Practitioner Family; Visit Provider Nurse Practitioner Family | DX: I50.9 Heart failure, unspecified (principal); R06.02 Shortness of breath | CPT/HCPCS: 78452; 93016; 93018 ==

== ENCOUNTER → 2025-02-15 23:59 | Outpatient (BNV) | payer MEDICARE, SELFPAY | PROVIDERS: PCP Nurse Practitioner Family; Visit Provider Nurse Practitioner Family | DX: I50.9 Heart failure, unspecified (principal); E78.5 Hyperlipidemia, unspecified; E11.9 Type 2 diabetes mellitus without complications | CPT/HCPCS: G0179 ==

== ENCOUNTER 2025-02-24 16:26 | Outpatient (REF) | payer MEDICARE, SELFPAY ==
--- NOTE | ~2025-02-24 | CT_ITS ---
EXAMINATION: CT CHEST WITHOUT CONTRAST CLINICAL INFORMATION: R91.1 - Solitary pulmonary nodule COMPARISON: August 31, 2024 TECHNIQUE: Multidetector volumetric CT imaging of the chest was done. Axial MIP volume rendering provided. Sagittal and coronal reformatted images were obtained. This CT examination was performed using dose optimization techniques as appropriate, variously including the following: *Automated exposure control *Adjustment of mA and/or kV according to patient size (this includes techniques or standardized protocols for targeted exams where dose is matched to indication/reason for exam; i.e. extremities or head) *Use of iterative reconstruction technique FINDINGS: LUNGS: Again seen is a 2 mm solid pulmonary nodule in the posterior left lower lobe (image 68/139) Again seen is a mass in the anterior right lung, probably within right middle lobe, near an incomplete minor fissure. It measures 13 x 16 mm. It contains gross fat, coarse calcifications, soft tissue, and fluid density. Lungs are otherwise clear. MEDIASTINUM: There are surgical clips related to thyroidectomy. There are shotty precarinal lymph nodes. They are similar to the prior. 2-lead pacemaker terminates in the right atrium and right ventricle. CORONARY ARTERY CALCIFICATION: Dense PLEURA: There is no pleural effusion. No pleural mass or thickening. AXILLA: No lymphadenopathy. UPPER ABDOMEN: Unremarkable. OSSEOUS STRUCTURES: Chronic mild compression fractures are noted at T1, T4, and T6. 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 Stable solitary pulmonary nodule in the posterior segment left lower lobe . No further follow-up is indicated per Fleischner Society recommendations, unless the patient falls into a high risk category, in which case a 12 month follow-up CT chest without contrast is optional. High risk patients includes those with a history of smoking, first-degree relative with lung cancer, or exposure to uranium, radon, or asbestos. Thyroidectomy. Stable mild compression fractures are present at T1, T4, and T6. Fleischner guidelines were followed. Electronically signed by: Ryan Mobley MD 02/24/2025 05:28 PM EDT
--- NOTE | ~2025-02-24 | CT_ITS ---
EXAMINATION: CT CERVICAL SPINE WITHOUT CONTRAST CLINICAL INFORMATION: Neck pain. COMPARISON: X-ray cervical spine 08/05/2024 TECHNIQUE: Axial 2 mm thin and reformatted 2 mm thin sagittal and coronal images of cervical spine were obtained without contrast. DLP 499 mGy/cm. This CT examination was performed using dose optimization techniques as appropriate, variously including the following: *Automated exposure control *Adjustment of mA and/or kV according to patient size (this includes techniques or standardized protocols for targeted exams where dose is matched to indication/reason for exam; i.e. extremities or head) *Use of iterative reconstruction technique FINDINGS: On sagittal reconstructed images there is normal cervical lordosis. There is mild anterior wedging of C7 vertebra. Rest of the vertebral heights and alignment is normal. There is loss of C4-5 and C6-7 disc heights. At C1-C2 disc level there is craniad spondylosis with loss of joint space. No bony erosive changes or fracture seen No acute fracture or dislocation rest of the cervical spine. At C3-4 disc level is moderate right facet joint arthropathy mildly narrowing the neural foramina. The left neural foramen is widely patent. The spinal canal is patent as well. At C4-5 disc level there is loss of disc height with moderate right and mild left neural foraminal narrowing secondary to uncovertebral hypertrophic changes. There is mild posterior spondylosis without spinal canal stenosis. At C5-6 disc level there is moderate left and mild right neural from narrowing from uncovertebral hypertrophic changes. Mild posterior spondylosis without spinal canal stenosis. At C6-C7 disc level there is moderate bilateral neural from narrowing from uncovertebral hypertrophic changes. There is mild posterior spondylosis/bulge complex without spinal canal stenosis. At C7-T1 disc level there is posterior spondylosis and spinal canal stenosis. The neural foramina are widely patent. There are surgical esthela seen throughout the anterior neck likely from total thyroidectomy. Is minimal right apical pleural thickening and scarring. The central tracheal airway is widely patent. There are left subclavian inserted pacer electrodes, partially visualized. Incidental finding of bilateral carotid stents are noted. CT/CT cervical spine wo IV con IMPRESSION: Degenerative posterior spondylosis C4-5 through C7-T1 disc level. Bilateral neural foraminal narrowing as described above. No acute fracture, lytic or sclerotic process seen. Fleischner guidelines were followed. Electronically signed by: Trent Murray MD 02/25/2025 07:32 AM EDT RP
--- OUTSIDE RECORDS SUMMARY | 2025-02-24 19:31 | XMS_ITS | Clinical Summary ---
Author Organization [facility] it Address [address] [place] [address] Care Team Providers Care Centrifugal Extractor Operator Name Role Phone Landy Sutherland MD Primary Care Provider [phone] [phone] Surgical History Surgery Date Site/Laterality Comments OTHER SURGICAL HISTORY PROCEDURE: [place] LAMNOTMY INCL W/DCMPRSN NRV ROOT 1 INTRSPC LUMBR; COMMENT: 3 back operations CAROTID ENDARTERECTOMY 2000 PROCEDURE: HISTORICAL CAROTID ENDART; COMMENT: right VAGINAL DELIVERY PROCEDURE: [place] VAGINAL DELIVERY ONLY; COMMENT: x2 ABDOMINAL SURGERY age 22 PROCEDURE: [place] UNLISTED PROCEDURE ABDOMEN PERITONEUM & OMENTUM; COMMENT: laparotomy with LSO for ruptured ectopic TONSILLECTOMY PROCEDURE: HISTORICAL TONSILLECTOMY Medical History Medical History Date Comments Esophageal reflux 03/01/2005 DX:Esophageal reflux Lumbago 03/01/2005 DX:Lumbago Thoracic [place], rupt[place] [place] [facility]) 11/12/2004 DX:Thoracic aneurysm, ruptur ed ([facility]) Peripheral vascular disease, unspecified ([facility]) 11/09/2004 DX:Peripheral vascular disea se, unspecified ([facility]) Other dyspnea and respirator y abnormality 11/09/2004 DX:Other dyspnea and respira tory abnormality Sciatica 09/12/2004 DX:Sciatica Sinoatrial node dysfunction ([facility], [facility] V28) 01/19/2004 DX:Sinoatrial node dysfuncti on ([facility] [...] with ophthalmic manifestations, not stated as uncontrolled(250.50) ([facility] V24, [facility] V28) 07/15/2012 DX: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 Type II or unspecified type diabetes mellitus with renal manifestations, not stated as uncontrolled(250.40) ([facility] V24, [facility] V[facility]) 08/07/2007 DX:Type II or unspecified t [...] Pacemaker DX:Pacemaker Peripheral vascular disease ([facility]) DX:Peripheral vascular disea se ([facility] [...] age to complete this topic Care Teams Centrifugal Extractor Operator Relationship Specialty Start Date End Date Landy Sutherland MD PCP - General 05/24/22
--- OUTSIDE RECORDS SUMMARY | 2025-02-24 19:31 | XMS_ITS | Encounter Summary ---
Author Organization [facility] Address [address] [facility] [address] [place] [address] Phone Care Team Providers Care Water Resources Business Segment Leader Name Role Phone Des Sanchez MD Primary Care Provider +1- [phone] Encounter Details Date Type Department Care Team (Late st Contact Info) Description 01/05/2022 Procedure Pass [facility], Ct Scan - [address] [address] Social History Tobacco Use Types Packs/Day Years [...] 6:33 PM EDT Cici Burgos RN * [place] Suicide Severity Rating Scale (Screener/Recent Self-Report) Question [...] documented as of this encounter Care Teams Water Resources Business Segment Leader Relationship Specialty Start Date End Date Des Sanchez MD [address] [place] [address] PCP - General Internal Medicine 11/22/21 documented as of this encounter Additional Source Comments The information contained in this document represents components of the legal health record. It is not the complete legal health record.[facility]
--- OUTSIDE RECORDS SUMMARY | 2025-02-24 19:31 | XMS_ITS | Clinical Summary ---
Author Organization [facility] Address [address] [id number] Phone Care Team Providers Care Desk Sergeant Name Role Phone Des Sanchez MD Primary Care Provider [phone] Allergies Active Allergy Reactions Criticality Noted Date [...] EDT) SODIUM 138 133 - 146 mmol/L [facility] CHLORIDE 107 96 - 108 mmol/L [facility] POTASSIUM 4.3 3.3 - 5.1 mmol/L [facility] CO2 24 21 - 35 mmol/L [facility] BUN 14 6 - 19 mg/dL [facility] CREATININE 1.20 0.5 - 1.5 mg/dL [facility] GLUCOSE 242(H) 70 - 99 mg/dL [facility] CALCIUM 9.7 8.4 - 10.3 mg/dL [facility] EGFR 47(L) >59 mL/min/1.7 3m2 [facility] Comment:Estimated glomerular filtration rate calculated using the CKD-EPI refit equation. ANION GAP 11 10 - 20 mmol/L [facility] Blood 01/07/2022 6:04 AM EDT 01/07/2022 6:21 AM EDT us Zahida Gonzalez MD LAB BLOOD ORDERABLES Final Result [address] [address] * TSH with reflex (01/06/2022 7:07 AM EDT) TSH 3.46 0.27 - 4.20 uIU/mL [facility] Blood 01/06/2022 7:07 AM EDT 01/06/2022 7:29 AM EDT us Elmer Ricks MD LAB BLOOD ORDERABLES Final Resu lt Performing Organization Address City/[facility]/ZIP Co de Phone Number [address] [address] * Hemoglobin A1c (01/06/2022 7:07 AM EDT) HEMOGLOBIN A1C 5.6 4.3 - 5.8 % [facility] 01/06/2022 7:07 AM EDT 01/06/2022 7:29 AM EDT Elmer Ricks MD LAB BLOOD ORDERABLES Final Resu lt [facility] [address] [place] [address] from Last 3 Months or Most Recently Relevant to Health Maintenance Insurance [employer] O MEDICARE REPLACEMENT [employer] O MEDICARE REPLACEMENT A[employer] PPO MEDICARE REPLACEMENT AET[employer] PPO MEDICARE REPLACEMENT A[employer] PPO MEDICARE REPLACEMENT AET[employer] PPO MEDICARE REPLACEMENT A[employer] PPO MEDICARE REPLACEMENT A[employer] PPO MEDICARE REPLACEMENT [employer] PPO MEDICARE REPLACEMENT Advance Directives For more information, please contact: [phone] (9AM - 5PM [facility], Friday-Friday) * Full Code (Latest Code Status on File) Date Activated Date Inactivated Comments 01/05/2022 10:22 PM Question Answer Comments Code Status Confirmed With: Patient Code Status Communicated To: Inpatient Attending Care Teams Desk Sergeant Relationship Specialty Start Date End Date Des Sanchez MD [address] [place] [address] PCP - General Internal Medicine 11/22/21 Additional Source Comments The information contained in this document represents components of the legal health record. It is not the complete legal health record.[facility]
--- OUTSIDE RECORDS SUMMARY | 2025-02-24 19:31 | XMS_ITS | Encounter Summary ---
Author Organization [facility] Address [address] [facility] [address] [place] [address] Phone Care Team Providers Care Steel Pickler Name Role Phone Des Sanchez MD Primary Care Provider [phone]- [phone] Encounter Details Date Type Department Care Team (Late st Contact Info) Description 01/05/2022 Procedure Pass [facility], Ct Scan - [address] [address] Social History Tobacco Use Types Packs/Day Years [...] 6:33 PM EDT Cici Burgos RN * [place] Suicide Severity Rating Scale (Screener/Recent Self-Report) Question [...] documented as of this encounter Care Teams Steel Pickler Relationship Specialty Start Date End Date Des Sanchez MD [address] [place] [address] PCP - General Internal Medicine 11/22/21 documented as of this encounter Additional Source Comments The information contained in this document represents components of the legal health record. It is not the complete legal health record.[facility]
--- OUTSIDE RECORDS SUMMARY | 2025-02-24 19:31 | XMS_ITS | Encounter Summary ---
Author Organization [facility] Address [address] [facility] [address] [place] [address] Phone Care Team Providers Care Manager Pharmacy Name Role Phone Des Sanchez MD Primary Care Provider [phone] Encounter Details Date Type Department Care Team (Late st Contact Info) Description 01/05/2022 Procedure Pass [facility], Ct Scan - [address] [address] Social History Tobacco Use Types Packs/Day Years [...] 6:33 PM EDT Cici Burgos RN * [place] Suicide Severity Rating Scale (Screener/Recent Self-Report) Question [...] documented as of this encounter Care Teams Manager Pharmacy Relationship Specialty Start Date End Date Des Sanchez MD [address] [place] [address] PCP - General Internal Medicine 11/22/21 documented as of this encounter Additional Source Comments The information contained in this document represents components of the legal health record. It is not the complete legal health record.[facility]
--- OUTSIDE RECORDS SUMMARY | 2025-02-24 19:31 | XMS_ITS | Encounter Summary ---
Author Organization [facility] Address [address] [facility] [address] [place] [address] Phone Care Team Providers Care Magnetic Observer Name Role Phone Des Sanchez MD Primary Care Provider [phone]- [phone] Encounter Details Date Type Department Care Team (Late st Contact Info) Description 01/05/2022 Procedure Pass [facility], Ct Scan - [address] [address] Social History Tobacco Use Types Packs/Day Years [...] 6:33 PM EDT Cici Burgos RN * [place] Suicide Severity Rating Scale (Screener/Recent Self-Report) Question [...] documented as of this encounter Care Teams Magnetic Observer Relationship Specialty Start Date End Date Des Sanchez MD [address] [place] [address] PCP - General Internal Medicine 11/22/21 documented as of this encounter Additional Source Comments The information contained in this document represents components of the legal health record. It is not the complete legal health record.[facility]
--- OUTSIDE RECORDS SUMMARY | 2025-02-24 19:31 | XMS_ITS | Encounter Summary ---
Author Organization [facility] Address [address] [facility] [address] [place] [address] Phone Care Team Providers Care Belt Fixer Name Role Phone Des Sanchez MD Primary Care Provider [phone]- [phone] Encounter Details Date Type Department Care Team (Late st Contact Info) Description 01/05/2022 Procedure Pass [facility], Ct Scan - [address] [address] Social History Tobacco Use Types Packs/Day Years [...] 6:33 PM EDT Cici Burgos RN * [place] Suicide Severity Rating Scale (Screener/Recent Self-Report) Question [...] documented as of this encounter Care Teams Belt Fixer Relationship Specialty Start Date End Date Des Sanchez MD [address] [place] [address] PCP - General Internal Medicine 11/22/21 documented as of this encounter Additional Source Comments The information contained in this document represents components of the legal health record. It is not the complete legal health record.[facility]
--- OUTSIDE RECORDS SUMMARY | 2025-02-24 19:31 | XMS_ITS | Patient Health Record ---
Author Organization [facility] Address [address] [place] [address] Care Team Providers Care Child Study Team Director Name Role Phone Oscar Alicia MD Primary Care Provider Prashant Sibley Unavailable [phone] Allergies Allergen (clinical drug ingredient) Drug/Non Drug [...] confirmed Problem Information temporarily unavailable Atherosclerosis of [place] arteries of extremities with intermittent claudication, bilateral [...] Insured Coverage Start Date Coverage End Date [facility] [id number] [facility] [address] [place] [id number] Pallavi Mukherjee Self - patient is the [...]
--- OUTSIDE RECORDS SUMMARY | 2025-02-24 19:31 | XMS_ITS | Encounter Summary ---
Author Organization [facility] Address [address] [place] [address] Phone Care Team Providers Care Bilingual Legal Assistant Name Role Phone Jaylen Taylor CNP Primary Care Provider [phone] Encounter Details Date Type Department Care Team (Late st Contact Info) Description 04/22/2022 Telephone [facility] [address] [place] [address] Ilir Roca MD Social History [...] you, [place] [facility] [place] Tele[place] Encounter - Carmen Chamorro - [...] [facility] [address] [place] [phone] Elia Winters MD [address] [address] documented as of this encounter Visit Diagnoses Not on filedocumented in this encounter Care Teams Bilingual Legal Assistant Relationship Specialty Start Date End Date Jaylen Taylor CNP [address] [place] [address] PCP - General 04/04/23 documented as of this encounter
--- OUTSIDE RECORDS SUMMARY | 2025-02-24 19:31 | XMS_ITS | Clinical Summary ---
Author Organization [facility] Address [address] [place] [phone] Phone Care Team Providers Care Biztalk Administrator Name Role Phone Jaylen Taylor JEB Primary Care Provider [phone] Allergies Active Allergy Reactions Criticality Noted Date [...] Office Visit [facility] [address] [place] [phone] [place] [address] [place] [phone] Health Maintenance Due Date Last Done [...] 10.1 8.7 - 10.7 mg/dL eGFR Non-Afr Chinese 33 Total Bilirubin 0.3 MG/DL ALT (SGPT) 12 U/L AST (SGOT) 12 U/L Alkaline Phosphatase 80 U/L Hemoglobin A1C 6.0 4.0 - 6.0 12/11/2021 Historical Provider LAB BLOOD ORDERABLES Lianet l Result from Last 3 Months or Most Recently Relevant to Health Maintenance Insurance [facility] Medicare [facility] Medicare Care Teams Biztalk Administrator Relationship Specialty Start Date End Date Jaylen Taylor CNP [address] [place] [address] PCP - General 04/04/23
--- OUTSIDE RECORDS SUMMARY | 2025-02-24 19:31 | XMS_ITS | Continuity of Care Document ---
Author Organization [facility] [address] [facility] [address] [place] [address] Phone [phone] Care Team Providers Care Black Belt Name Role Phone Claudia York CNP Care Team Information Receive r [phone] Problems Active Problems Provider Date Osteoporosis Emanuel [...] Indications Ordering Provider Date Vitamin D (Ergocalciferol)1.25mg (26220 Ut) Capsules 1 tab by mouth every week 8caps Emanuel Cueva M.D. 06/20/2023 Lisinopril2.5mg Tablets Take 1 Tablet Orally Every Evening Unknown Clopidogrel Xcyngrmrd07ic Tablets Take 1 Tablet By Mouth Every Day Des Sanchez MD Amlodipine Ntisoamq74kt Tablets Take 1 Tablet By Mouth Every Day Unknown Lyhtqmqlco991gl Tablets Take 1 Tablet By Mouth 2 Times A Day For 30 Days Claudia York CNP Ferrous Kgcgurz837(65Fe) mg Tablets Take 1 Tablet By Mouth 1 Time Each Day With Breakfast. Unknown Pramipexole Dihydrochloride0.125mg Tablets Take 2 By Mouth Daily Des Sanchez MD Xdmuvtatnd762ce Capsules Take 1 Capsule By Mouth Three Times A Day Unknown Sertraline HHA759ds Tablets Take 1 Tablet By Mouth Twice A Day Des Sanchez MD Metformin JHM039ny Tablets Take 1 Tablet By Mouth Twice A Day Des Sanchez MD Atorvastatin Jwozddh98nb Tablets Take 1 Tablet By Mouth Every Day Des Sanchez MD Levothyroxine Nreaow167hfv Tablets Take 1 Tablet By Mouth Every [...] E11.9 Type 2 diabetes mellitus* New Labs:* Dasqgyp-Ip-Qrsyv, Ordered: 06/16/23 * Creat Clearance, Ordered: 06/16/23 * N-Telopeptide Cross Links, Urine, Ordered: 06/16/23 Functional Status Description No Information Available Mental Status Description No Information Available Referrals Description No Information Available
== END 2025-02-24 16:27 | disposition home or self-care (01) ==
LOC: HO.CT 16:26
PROVIDERS: PCP Nurse Practitioner Family; Visit Provider Nurse Practitioner Family
DX: R91.1 Solitary pulmonary nodule (principal); M54.2 Cervicalgia; G89.29 Other chronic pain
CPT/HCPCS: 71250; 72125

== ENCOUNTER → 2025-02-24 16:30 | Outpatient (BNV) | payer MEDICARE, SELFPAY | PROVIDERS: PCP Nurse Practitioner Family; Visit Provider Radiology Diagnostic Radiology | DX: M47.812 Spondylosis without myelopathy or radiculopathy, cervical region (principal); M99.61 Osseous and subluxation stenosis of intervertebral foramina of cervical region | CPT/HCPCS: 72125 ==

== ENCOUNTER 2025-02-28 13:04 | Outpatient (AMB) | payer MEDICARE, SELFPAY ==
[2025-02-28 13:25] VITALS: BP 120/78; PULSE 78; BMI 21.2
--- NOTE | 2025-02-28 13:25 | A.OFFVIS_ITS ---
Vital Signs 02/28/25 13:25 Height 5 ft 4 in Weight 123 lb 7.342 oz BMI 21.2 BP 120/78 Blood Pressure Location Lt brachial Position Sitting Pulse 78 Intake Visit Reasons: urgent visit requested- abn stress test Intake Note: Urgent visit for abnormal stress test Relief Salesperson Required: No Allergies acetaminophen (From Percocet) Allergy (Intermediate, Verified 02/08/25 10:14) Itching oxycodone (From Percocet) Allergy (Intermediate, Verified 02/08/25 10:14) Itching Seasonal Allergies Allergy (Intermediate, Verified 02/08/25 10:14) Itchy Eyes ibuprofen (From Motrin) Allergy (Unknown, Verified 02/08/25 10:14) Swelling wheat Adverse Reaction (Unknown, Verified 02/08/25 10:14) Diarrhea lactose Adverse Reaction (Verified 02/08/25 10:14) Diarrhea Medication List - Last Reconciled 02/28/25 by Joseph Nicholas MD amlodipine 5 mg PO BID aspirin 81 mg PO DAILY atorvastatin 80 mg PO BEDTIME cetirizine (Allergy Relief (cetirizine)) 10 mg PO DAILY cholecalciferol (vitamin D3) 50 mcg PO DAILY 90 days clopidogrel 75 mg PO DAILY 30 days cyanocobalamin (vitamin B-12) 1,000 mcg PO DAILY ezetimibe 10 mg PO DAILY famotidine 20 mg PO DAILY ferrous sulfate (Iron (ferrous sulfate)) 325 mg PO DAILY furosemide (Lasix) 20 mg PO DAILY gabapentin 600 mg PO BID hydrocortisone 1% 1 appl topical BID PRN ipratropium-albuterol 0.5 mg-3 mg(2.5 mg base)/3 mL 3 mL inhalation Q6H PRN levothyroxine 125 mcg PO DAILY 30 days metoprolol succinate ER 50 mg PO DAILY 30 days metoprolol succinate ER 25 mg PO DAILY 30 days pramipexole 0.25 mg (2 x 0.125 mg) PO BEDTIME sertraline 100 mg PO DAILY 90 days HPI Comments Details: Pallavi comes for follow-up. Comes for follow-up after recent stress test which shows large area of ischemia in the lateral and inferolateral wall suggestive of ischemia and circumflex territory. She has had no recent hospitalization with heart failure. She is taking all her medication. Unfortunately she continues to smoke. Echocardiogram showed low normal LV ejection fraction 50-55% with moderate aortic stenosis. She says she gets lower retrosternal epigastric discomfort at nighttime when she is going into bed. She denies any symptoms with exertion although functional capacity is limited [facility] Medical History Laboratory tests ordered as part of a complete physical exam (CPE) Screening for lung cancer Colon cancer screening Normal physical examination, routine Viral upper respiratory illness Cardiac pacemaker in situ Runny nose Smoking 1/2 pack a day or less SOB (shortness of breath) on exertion Smoking greater than 30 pack years Diarrhea Osteopenia Breast cancer screening Chronic diarrhea Skin tear of left upper arm without complication Aortic stenosis Restless leg syndrome No pertinent family history Hyperlipidemia Chronic back pain Osteoarthritis GERD (gastroesophageal reflux disease) Anxiety and depression Type 2 diabetes mellitus Hypertension CKD (chronic kidney disease) stage 3, GFR 30-59 ml/min Hypothyroidism Cataracts, bilateral COPD (chronic obstructive pulmonary disease) Deafness in right ear Stroke Surgical History History of esophagogastroduodenoscopy (EGD) H/O colonoscopy History of tonsillectomy History of appendectomy H/O: hysterectomy History of back surgery H/O thyroidectomy H/O endarterectomy S/P cardiac pacemaker procedure Family History Mother Bladder cancer Brother Bladder cancer Social History Household Members: Children Housing: House Do you presently have visiting nurse or other home services: No Alcohol intake: never Patient Tobacco Use Status: Current everyday Tobacco user Tobacco use type: Cigarette Cigarette Packs Per Day: 0.25 Cigarettes Per Day: 5 Years Smoked: 70 e-Cigarette/Vaping Use: Former Use Second Hand Smoke Exposure: No Substance Use Type: Marijuana service: No Current occupational status: retired Current occupational exposures/hazards: No Cognitive needs: No Hearing needs: No Vision needs: No Review of Systems Const Denies chills, Denies fatigue, Denies fever(s), Denies frequent falls, Denies weakness, Denies weight gain and Denies weight loss ENT Denies dizziness Card Denies chest pain, Denies leg edema, Denies lightheadedness, Denies palpitations, Denies dyspnea, Denies dyspnea on exertion, Denies orthopnea and Denies other (loss of consciousness) Resp Denies cough, Denies dyspnea and Denies dyspnea on exertion GI Denies hematochezia and Denies change in stool character Musc Denies abnormal gait, Denies muscle weakness, Denies numbness, Denies radiating pain into limb and Denies tingling Neuro Denies abnormal gait, Denies dizziness, Denies frequent falls, Denies numbness, Denies tingling and Denies weakness Endo Denies fatigue and Denies palpitations Physical Exam Vital Signs: Last Vital Signs Pulse 78 02/28/25 13:25 BP 120/78 02/28/25 13:25 BMI result Body Mass Index 21.2 Const General: cooperative, healthy appearing, comfortable and no acute distress Orientation/consciousness: patient oriented x3 Neck Neck: Yes normal visual inspection and Yes no JVD Resp Effort & Inspection: normal respiratory effort Auscultation: clear to auscultation bilaterally, no crackles, no rales, no rhonchi and no wheezes Cardio Jugular venous distension: no JVD Rate: regular rate Rhythm: regular rhythm Heart sounds: S1 normal heart sound present, S2 normal heart sound present, Murmur heart sound present systolic mid, decrescendo, crescendo, harsh, IV/ and at the left sternal border and no rubs Skin General skin exam: ecchymosis Neuro General: patient oriented x3 Extrem General: Yes no clubbing, cyanosis or edema Psych Appearance: grossly normal Mental Status: mental status grossly normal Speech and movement: Normal speech and movement present Assessment & Plan Assessment & Plan (1) CAD (coronary artery disease): Code(s): I25.10 - Atherosclerotic heart disease of [place] coronary artery without angina pectoris Category: Medical Plan: Patient has prior diffuse significant vascular disease including bilateral carotid stenting in [place]. Recent admissions with acute pulmonary edema with abnormal stress test which is suggestive of underlying significant obstructive coronary disease. I think she requires cardiac catheterization for further evaluation of her underlying coronary anatomy and guide further treatment. This was discussed with her. We discussed the risks, benefits, alternatives to the procedure. Possible outcomes were discussed including single-vessel circumflex disease which could be dominant then lead to acute pulmonary edema possibly due to papillary muscle ischemia as well. Although it is also likely that she might have significant triple-vessel disease. This was discussed with her. She understands agrees. She will pursue the same. She will require bilateral cardiac catheterization including hemodynamic evaluation. (2) Chronic heart failure with preserved ejection fraction (HFpEF): Code(s): I50.32 - Chronic diastolic (congestive) heart failure Category: Medical Plan: Heart failure preserved ejection fraction with admission with significant pulmonary edema which raises concern for myocardial ischemia. Cardiac catheterization as above. Currently euvolemic and well compensated. Continue current low-dose Lasix therapy. Continue COPD optimization. Continue metoprolol therapy. Smoking cessation strongly advised. (3) Aortic stenosis: Code(s): I35.0 - Nonrheumatic aortic (valve) stenosis Category: Medical Plan: Aortic stenosis which is moderate. No interventions required per se for aortic stenosis. Although she has significant coronary disease and she is looking at surgical revascularization may need aortic valve replacement. She is not too thrilled about any open procedures. Continue low-dose aspirin therapy. Continue high-intensity statin therapy along with ezetimibe therapy. Follow up in the clinic in 6 weeks time, sooner PRN. Thank you for allowing me to partake in her care Orders: Orders Prothrombin Time INR Today I25.10 - Atherosclerotic heart disease of [place] coronary artery without angina pectoris US carotid duplex BI 1 Week I65.23 - Occlusion and stenosis of bilateral carotid arteries Cardiac Cath LT w PCI 1 Week J81.1 - Chronic pulmonary edema, R94.39 - Abnormal result of other cardiovascular function study Complete Blood Count no Diff Today I25.10 - Atherosclerotic heart disease of [place] coronary artery without angina pectoris Basic Metabolic Panel Today I25.10 - Atherosclerotic heart disease of [place] coronary artery without angina pectoris Coding Level of Care Code Est Pt Level 4 (28645) Complex EM visit Add On G2211 Diagnoses CAD (coronary artery disease) I25.10 Chronic heart failure with preserved ejection fraction (HFpEF) I50.32 Aortic stenosis I35.0
--- OUTSIDE RECORDS SUMMARY | 2025-02-28 16:37 | XMS_ITS | Encounter Summary ---
Author Organization [facility] Address [address] [facility] [address] [place] [address] Phone Care Team Providers Care Director Of Security Name Role Phone Des Sanchez MD Primary Care Provider [phone] Encounter Details Date Type Department Care Team (Late st Contact Info) Description 01/05/2022 Procedure Pass [facility], Ct Scan - [address] [address] Social History Tobacco Use Types Packs/Day Years [...] 6:33 PM EDT Cici Burgos RN * [place] Suicide Severity Rating Scale (Screener/Recent Self-Report) Question [...] documented as of this encounter Care Teams Director Of Security Relationship Specialty Start Date End Date Des Sanchez MD [address] [place] [address] PCP - General Internal Medicine 11/22/21 documented as of this encounter Additional Source Comments The information contained in this document represents components of the legal health record. It is not the complete legal health record.[facility]
--- OUTSIDE RECORDS SUMMARY | 2025-02-28 16:37 | XMS_ITS | Patient Health Record ---
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 [address] [place] [address] [id number] Pallavi Mukherjee Self - patient is the [...]
--- OUTSIDE RECORDS SUMMARY | 2025-02-28 16:37 | XMS_ITS | Encounter Summary ---
Author Organization [facility] Address [address] [facility] [address] [place] [address] Phone Care Team Providers Care Cuffing Machine Operator Name Role Phone Des Sanchez MD Primary Care Provider [phone]- [phone] Encounter Details Date Type Department Care Team (Late st Contact Info) Description 01/05/2022 Procedure Pass [facility], Ct Scan - [address] [address] Social History Tobacco Use Types Packs/Day Years [...] 6:33 PM EDT Cici Burgos RN * [place] Suicide Severity Rating Scale (Screener/Recent Self-Report) Question [...] documented as of this encounter Care Teams Cuffing Machine Operator Relationship Specialty Start Date End Date Des Sanchez MD [address] [place] [address] PCP - General Internal Medicine 11/22/21 documented as of this encounter Additional Source Comments The information contained in this document represents components of the legal health record. It is not the complete legal health record.[facility]
--- OUTSIDE RECORDS SUMMARY | 2025-02-28 16:37 | XMS_ITS | Clinical Summary ---
Author Organization [facility] Address [address] [place] [address] Phone Care Team Providers Care Cooperer Name Role Phone Jaylen Taylor JEB Primary Care Provider [phone] Allergies Active Allergy Reactions Criticality Noted Date [...] Office Visit [facility] [address] [place] [id number] [place] [address] [place] [phone] Health Maintenance Due Date Last Done [...] 10.1 8.7 - 10.7 mg/dL eGFR Non-Afr Greek 33 Total Bilirubin 0.3 MG/DL ALT (SGPT) 12 U/L AST (SGOT) 12 U/L Alkaline Phosphatase 80 U/L Hemoglobin A1C 6.0 4.0 - 6.0 12/11/2021 Historical Provider LAB BLOOD ORDERABLES Lianet l Result from Last 3 Months or Most Recently Relevant to Health Maintenance Insurance [facility] Medicare [facility] Medicare Care Teams Cooperer Relationship Specialty Start Date End Date Jaylen Taylor CNP [address] [place] [address] PCP - General 04/04/23
--- OUTSIDE RECORDS SUMMARY | 2025-02-28 16:37 | XMS_ITS | Encounter Summary ---
Author Organization [facility] Address [address] [facility] [address] [place] [address] Phone Care Team Providers Care Manager Of Corporate Communications Name Role Phone Des Sanchez MD Primary Care Provider [phone]- [phone] Encounter Details Date Type Department Care Team (Late st Contact Info) Description 01/05/2022 Procedure Pass [facility], Ct Scan - [address] [address] Social History Tobacco Use Types Packs/Day Years [...] 6:33 PM EDT Cici Burgos RN * [place] Suicide Severity Rating Scale (Screener/Recent Self-Report) Question [...] as of this encounter Care Teams Manager Of Corporate Communications Relationship Specialty Start Date End Date Des Sanchez MD [address] [place] [address] PCP - General Internal Medicine 11/22/21 documented as of this encounter Additional Source Comments The information contained in this document represents components of the legal health record. It is not the complete legal health record.[facility]
--- OUTSIDE RECORDS SUMMARY | 2025-02-28 16:37 | XMS_ITS | Encounter Summary ---
Author Organization [facility] Address [address] [place] [address] Phone Care Team Providers Care Rug Inspector Name Role Phone Jaylen Taylor CNP Primary Care Provider [phone] Encounter Details Date Type Department Care Team (Late st Contact Info) Description 04/22/2022 Telephone [facility] [address] [place] [address] Ilir Roca MD Social History [...] thank you, order was faxed over to [facility] * Telephone Encounter - Carmen Chamorro - [...] [facility] [address] [place] [phone] Elia Winters MD [address] [address] documented as of this encounter Visit Diagnoses Not on filedocumented in this encounter Care Teams Rug Inspector Relationship Specialty Start Date End Date Jaylen Taylor CNP [address] [place] [address] PCP - General 04/04/23 documented as of this encounter
--- OUTSIDE RECORDS SUMMARY | 2025-02-28 16:37 | XMS_ITS | Clinical Summary ---
Author Organization [facility] Address [address] [place] [address] Care Team Providers Care Steel Welder Name Role Phone Landy Sutherland MD Primary Care Provider [phone] Surgical History Surgery Date Site/Laterality Comments OTHER SURGICAL HISTORY PROCEDURE: [place] LAMNOTMY INCL W/DCMPRSN NRV ROOT 1 INTRSPC LUMBR; COMMENT: 3 back operations CAROTID ENDARTERECTOMY 2000 PROCEDURE: HISTORICAL CAROTID ENDART; COMMENT: right VAGINAL DELIVERY PROCEDURE: [place] VAGINAL DELIVERY ONLY; COMMENT: x2 ABDOMINAL SURGERY age 22 PROCEDURE: [place] UNLISTED PROCEDURE ABDOMEN PERITONEUM & OMENTUM; COMMENT: laparotomy with LSO for ruptured ectopic TONSILLECTOMY PROCEDURE: HISTORICAL TONSILLECTOMY Medical History Medical History Date Comments Esophageal reflux 03/01/2005 DX:Esophageal reflux Lumbago 03/01/2005 DX:Lumbago Thoracic aneurysm, ruptured ([facility] V24, [facility] V28) 11/12/2004 DX:Thoracic aneurysm, ruptur ed ([facility]) Peripheral vascular disease, unspecified ([facility] V24) 11/09/2004 DX:Peripheral vascular disea se, unspecified ([facility]) Other dyspnea and respirator y abnormality 11/09/2004 DX:Other dyspnea and respira tory abnormality Sciatica 09/12/2004 DX:Sciatica Sinoatrial node dysfunction ([facility] V24, [facility] V28) 01/19/2004 DX:Sinoatrial node dysfuncti on ([facility]) Cervicalgia 01/04/2004 DX:Cervicalgia Palpitations 01/04/2004 [...] with ophthalmic manifestations, not stated as uncontrolled(250.50) ([facility] V24, [facility] V28) 07/15/2012 DX: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 Type II or unspecified type diabetes mellitus with renal manifestations, not stated as uncontrolled(250.40) ([facility] V24, [facility] V28) 08/07/2007 DX:Type II or unspecified t ype diabetes mellitus with renal manifestations, not stated as uncontrolled(250.40) ([facility]); COMMENT: 07/10--Ogtt neg Intol Lisinopril [...] DX:Weight loss Pacemaker DX:Pacemaker Peripheral vascular disease ([facility] V24) DX:Peripheral vascular disea se ([facility]) Family History Medical History Relation [...] age to complete this topic Care Teams Steel Welder Relationship Specialty Start Date End Date Landy Sutherland MD PCP - General 05/24/22
--- OUTSIDE RECORDS SUMMARY | 2025-02-28 16:37 | XMS_ITS | Clinical Summary ---
Author Organization [facility] Address [address] [id number] Phone Care Team Providers Care Menagerie Caretaker Name Role Phone Des Sanchez MD Primary Care Provider [phone]- [phone] Allergies Active Allergy Reactions Criticality Noted Date [...] EDT) SODIUM 138 133 - 146 mmol/L [facility] CHLORIDE 107 96 - 108 mmol/L [facility] POTASSIUM 4.3 3.3 - 5.1 mmol/L [facility] CO2 24 21 - 35 mmol/L [facility] BUN 14 6 - 19 mg/dL [facility] CREATININE 1.20 0.5 - 1.5 mg/dL [facility] GLUCOSE 242(H) 70 - 99 mg/dL [facility] CALCIUM 9.7 8.4 - 10.3 mg/dL [facility] EGFR 47(L) >59 mL/min/1.7 3m2 [facility] Comment:Estimated glomerular filtration rate calculated using the CKD-EPI refit equation. ANION GAP 11 10 - 20 mmol/L [facility] Blood 01/07/2022 6:04 AM EDT 01/07/2022 6:21 AM EDT us Zahida Gonzalez MD LAB BLOOD ORDERABLES Final Result [address] [address] * TSH with reflex (01/06/2022 7:07 AM EDT) TSH 3.46 0.27 - 4.20 uIU/mL [facility] Blood 01/06/2022 7:07 AM EDT 01/06/2022 7:29 AM EDT us Elmer Ricks MD LAB BLOOD ORDERABLES Final Resu lt Performing Organization Address City/[facility]/ZIP Co de Phone Number [address] [address] * Hemoglobin A1c (01/06/2022 7:07 AM EDT) HEMOGLOBIN A1C 5.6 4.3 - 5.8 % [facility] 01/06/2022 7:07 AM EDT 01/06/2022 7:29 AM EDT Elmer Ricks MD LAB BLOOD ORDERABLES Final Resu lt [facility] [address] [place] [address] from Last 3 Months or Most Recently Relevant to Health Maintenance Insurance [employer] O MEDICARE REPLACEMENT [employer] O MEDICARE REPLACEMENT [employer] PPO MEDICARE REPLACEMENT [employer] PPO MEDICARE REPLACEMENT [employer] PPO MEDICARE REPLACEMENT [employer] PPO MEDICARE REPLACEMENT [employer] PPO MEDICARE REPLACEMENT [employer] PPO MEDICARE REPLACEMENT [employer] PPO MEDICARE REPLACEMENT Advance Directives For more information, please contact: [phone] (9AM - 5PM [facility], Friday-Friday) * Full Code (Latest Code Status on File) Date Activated Date Inactivated Comments 01/05/2022 10:22 PM Question Answer Comments Code Status Confirmed With: Patient Code Status Communicated To: Inpatient Attending Care Teams Menagerie Caretaker Relationship Specialty Start Date End Date Des Sanchez MD [address] [place] [address] PCP - General Internal Medicine 11/22/21 Additional Source Comments The information contained in this document represents components of the legal health record. It is not the complete legal health record.[facility]
--- OUTSIDE RECORDS SUMMARY | 2025-02-28 16:37 | XMS_ITS | Encounter Summary ---
Author Organization [facility] Address [address] [facility] [address] [place] [address] Phone Care Team Providers Care Sales And Business Development Manager Name Role Phone Des Sanchez MD Primary Care Provider [phone]- [phone] Encounter Details Date Type Department Care Team (Late st Contact Info) Description 01/05/2022 Procedure Pass [facility], Ct Scan - [address] [address] Social History Tobacco Use Types Packs/Day Years [...] 6:33 PM EDT Cici Burgos RN * [place] Suicide Severity Rating Scale (Screener/Recent Self-Report) Question [...] documented as of this encounter Care Teams Sales And Business Development Manager Relationship Specialty Start Date End Date Des Sanchez MD [address] [place] [address] PCP - General Internal Medicine 11/22/21 documented as of this encounter Additional Source Comments The information contained in this document represents components of the legal health record. It is not the complete legal health record.[facility]
--- OUTSIDE RECORDS SUMMARY | 2025-02-28 16:37 | XMS_ITS | Encounter Summary ---
Author Organization [facility] Address [address] [facility] [address] [place] [address] Phone Care Team Providers Care Biochemical Development Engineer Name Role Phone Des Sanchez MD Primary Care Provider +1- [phone] Encounter Details Date Type Department Care Team (Late st Contact Info) Description 01/05/2022 Procedure Pass [facility], Ct Scan - [address] [address] Social History Tobacco Use Types Packs/Day Years [...] 6:33 PM EDT Cici Burgos RN * [place] Suicide Severity Rating Scale (Screener/Recent Self-Report) Question [...] documented as of this encounter Care Teams Biochemical Development Engineer Relationship Specialty Start Date End Date Des Sanchez MD [address] [place] [address] PCP - General Internal Medicine 11/22/21 documented as of this encounter Additional Source Comments The information contained in this document represents components of the legal health record. It is not the complete legal health record.[facility]
--- OUTSIDE RECORDS SUMMARY | 2025-02-28 16:37 | XMS_ITS | Continuity of Care Document ---
Author Organization [facility] [address] [place] [address] Phone [phone] Care Team Providers Care Vp Client Services Name Role Phone Claudia York CNP Care Team Information Receive r [phone] Problems Active Problems Provider Date Osteoporosis Emanuel [...] Indications Ordering Provider Date Vitamin D (Ergocalciferol)1.25mg (22214 Ut) Capsules 1 tab by mouth every week 8caps Emanuel Cueva M.D. 06/20/2023 Lisinopril2.5mg Tablets Take 1 Tablet Orally Every Evening Unknown Clopidogrel Zxnkznuvx19xb Tablets Take 1 Tablet By Mouth Every Day Des Sanchez MD Amlodipine Advpfiru86kz Tablets Take 1 Tablet By Mouth Every Day Unknown Qesqykdevk535wr Tablets Take 1 Tablet By Mouth 2 Times A Day For 30 Days Claudia York CNP Ferrous Nlmmvfb152(65Fe) mg Tablets Take 1 Tablet By Mouth 1 Time Each Day With Breakfast. Unknown Pramipexole Dihydrochloride0.125mg Tablets Take 2 By Mouth Daily Des Sanchez MD Qkiwdkaxcm959ec Capsules Take 1 Capsule By Mouth Three Times A Day Unknown Sertraline EUQ542ij Tablets Take 1 Tablet By Mouth Twice A Day Des Sanchez MD Metformin SJN592qd Tablets Take 1 Tablet By Mouth Twice A Day Des Sanchez MD Atorvastatin Dvdkszj95hg Tablets Take 1 Tablet By Mouth Every Day Des Sanchez MD Levothyroxine Psgnni732dlw Tablets Take 1 Tablet By Mouth Every Day Des Sanchez MD Vital Signs Date Vital Result Comment 06/16/2023 9:37am BP Systolic 110 mmHg BP Diastolic 70 mmHg Heart Rate 72 /min Height 64 inches 5'4 Weight 128.12 lb BMI (Body Mass Index) 22.0 kg/m2 Results Test Acquired Date Facility Test Result H/L Range N ote Basic Metabolic Panel 06/16/2023 [facility] Reference Lab Glucose 102 mg/dL High (70-99) BUN 24 mg/dL High (8-23) Creatinine 1.3 mg/dL High (0.5-1.0) Sodium 140 mmol/L (133-145) Potassium 5.2 mmol/L (3.6-5.2) Chloride 105 mmol/L (98-107) Bicarbonate 20 mmol/L Low (22-29) Anion Gap 15 (4-17) Calcium 10.4 mg/dL (8.6-10.5 ) Estimated GFR Creatinine 41 ML/MIN/1.7 3M2 1 25Oh Vitamin D 06/16/2023 [facility] Reference Lab 25Oh Vitamin D 14.9 NG/ML Low (20-50) Albumin 06/16/2023 [facility] Reference Lab Albumin 4.6 GM/DL (3.4-4.8) PTH, Intact 06/16/2023 [facility] Reference Lab PTH, Intact 102 pg/mL High (15-65) Phosphorus 06/16/2023 [facility] Reference Lab Phosphorus 3.6 mg/dL (2.5-4.5) [...] E11.9 Type 2 diabetes mellitus* New Labs:* Stowlns-Jl-Tlevn, Ordered: 06/16/23 * Creat Clearance, Ordered: 06/16/23 * N-Telopeptide Cross Links, Urine, Ordered: 06/16/23 Functional Status Description No Information Available Mental Status Description No Information Available Referrals Description No Information Available
== END 2025-02-28 14:05 | disposition home or self-care (01) ==
LOC: HO.HCS 13:05
PROVIDERS: PCP Nurse Practitioner Family; Visit Provider Internal Medicine Cardiovascular Disease
DX: I25.10 Atherosclerotic heart disease of native coronary artery without angina pectoris (principal); I50.32 Chronic diastolic (congestive) heart failure; I35.0 Nonrheumatic aortic (valve) stenosis
CPT/HCPCS: 99214; G2211

== ENCOUNTER → 2025-02-28 13:04 | Outpatient (BNVA) | payer MEDICARE, SELFPAY | PROVIDERS: PCP Nurse Practitioner Family; Visit Provider Internal Medicine Cardiovascular Disease | DX: I50.32 Chronic diastolic (congestive) heart failure (principal); I35.0 Nonrheumatic aortic (valve) stenosis; Z72.0 Tobacco use; Z95.0 Presence of cardiac pacemaker; Z95.5 Presence of coronary angioplasty implant and graft; J81.0 Acute pulmonary edema | CPT/HCPCS: 99212 ==

== ENCOUNTER 2025-03-01 09:54 | Outpatient (REF) | payer MEDICARE, SELFPAY ==
[2025-03-01 11:27] LABS: MANUAL DIFF FLAG NO
[2025-03-01 11:37] LABS: Hematocrit 35.3 % (37.0-47.0); Hemoglobin 11.7 g/dl (12.0-16.0); Imm Gran Abs Auto 0.02 X10*3/uL (0.00-0.03); Imm Gran Pct Auto 0.3 % (0.0-0.4); Lymphocytes Absolute Auto 0.7 X10*3/uL (1.2-4.9); Mean Corpuscular HGB Conc 33.1 g/dl (31.0-35.0); Mean Corpuscular Hemoglobin 31.6 pg (27.0-33.0); Mean Corpuscular Volume 95.4 fL (80.0-98.0); NRBC Abs Auto 0.000 X10*3/uL (0.0-0.012); NRBC Pct Auto 0.0 /100WBC (0.0-0.2); Platelet Count 210 X10*3/uL (160-400); Red Blood Count 3.70 X10*6/uL (4.20-5.50); White Blood Count 6.0 X10*3/uL (4.8-10.8)
--- OUTSIDE RECORDS SUMMARY | 2025-03-01 11:39 | XMS_ITS | Clinical Summary ---
Author Organization [facility] Address [address] [place] [address] Phone Care Team Providers Care Social Media Editor Name Role Phone Jaylen Taylor JEB Primary Care Provider Allergies Active Allergy Reactions [...] Office Visit [facility] [address] [place] [id number] [place] [address] [place] [address] Health Maintenance Due Date Last Done [...] 10.1 8.7 - 10.7 mg/dL eGFR Non-Afr [place] 33 Total Bilirubin 0.3 MG/DL ALT (SGPT) 12 U/L AST (SGOT) 12 U/L Alkaline Phosphatase 80 U/L Hemoglobin A1C 6.0 4.0 - 6.0 12/11/2021 Historical Provider LAB BLOOD ORDERABLES Lianet l Result from Last 3 Months or Most Recently Relevant to Health Maintenance Insurance [facility] Medicare [facility] Medicare Care Teams Social Media Editor Relationship Specialty Start Date End Date Jaylen Taylor CNP [address] [place] [address] PCP - General 04/04/23
--- OUTSIDE RECORDS SUMMARY | 2025-03-01 11:39 | XMS_ITS | Patient Health Record ---
Author Organization [facility] Address [address] [place] [address] Care Team Providers Care Councilperson Name Role Phone Oscar Alicia MD Primary Care Provider Prashant Sibley Unavailable [phone] Allergies Allergen (clinical drug ingredient) Drug/Non Drug [...] confirmed Problem Information temporarily unavailable Atherosclerosis of [place] arteries of extremities with intermittent claudication, bilateral [...] Insured Coverage Start Date Coverage End Date [facility] [id number] [facility] [address] [place] [address] [id number] Pallavi Mukherjee Self - patient is the [...]
--- OUTSIDE RECORDS SUMMARY | 2025-03-01 11:39 | XMS_ITS | Clinical Summary ---
Author Organization [facility] Address [address] [place] [address] Care Team Providers Care Associate Veterinarian Name Role Phone Landy Sutherland MD Primary Care Provider [phone] Surgical History Surgery Date Site/Laterality Comments OTHER SURGICAL HISTORY PROCEDURE: [place] LAMNOTMY INCL W/DCMPRSN NRV ROOT 1 INTRSPC LUMBR; COMMENT: 3 back operations CAROTID ENDARTERECTOMY 2000 PROCEDURE: HISTORICAL CAROTID ENDART; COMMENT: right VAGINAL DELIVERY PROCEDURE: [place] VAGINAL DELIVERY ONLY; COMMENT: x2 ABDOMINAL SURGERY age 22 PROCEDURE: [place] UNLISTED PROCEDURE ABDOMEN PERITONEUM & OMENTUM; COMMENT: laparotomy with LSO for ruptured ectopic TONSILLECTOMY PROCEDURE: HISTORICAL TONSILLECTOMY Medical History Medical History Date Comments Esophageal reflux 03/01/2005 DX:Esophageal reflux Lumbago 03/01/2005 DX:Lumbago Thoracic aneurysm, ruptured ([facility] V24, [facility] V28) 11/12/2004 DX:Thoracic aneurysm, ruptur ed ([facility]) Peripheral vascular disease, unspecified ([facility] V24) 11/09/2004 DX:Peripheral vascular disea se, unspecified ([facility]) Other dyspnea and respirator y abnormality 11/09/2004 DX:Other dyspnea and respira tory abnormality Sciatica 09/12/2004 DX:Sciatica Sinoatrial node dysfunction ([facility] V24, [facility] V28) 01/19/2004 DX:Sinoatrial node dysfuncti on ([facility]) Cervicalgia 01/04/2004 DX:Cervicalgia Palpitations 01/04/2004 DX:Palpitations Syncope [...] with ophthalmic manifestations, not stated as uncontrolled(250.50) ([facility] V24, [facility] V28) 07/15/2012 DX: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 Type II or unspecified type diabetes mellitus with renal manifestations, not stated as uncontrolled(250.40) ([facility] V24, [facility] V28) 08/07/2007 DX:Type II or unspecified t ype diabetes mellitus with renal manifestations, not stated as uncontrolled(250.40) ([facility]); COMMENT: 07/10--Ogtt neg Intol Lisinopril CKD stage [...] DX:Weight loss Pacemaker DX:Pacemaker Peripheral vascular disease ([facility] V24) DX:Peripheral vascular disea se ([facility]) Family History Medical History Relation Name Comments [...] age to complete this topic Care Teams Associate Veterinarian Relationship Specialty Start Date End Date Landy Sutherland MD PCP - General 05/24/22
--- OUTSIDE RECORDS SUMMARY | 2025-03-01 11:41 | XMS_ITS | Encounter Summary ---
Author Organization [facility] Address [address] [facility] [address] [place] [address] Phone Care Team Providers Care Payroll And Benefits Specialist Name Role Phone Des Sanchez MD Primary Care Provider [phone]- [phone] Encounter Details Date Type Department Care Team (Late st Contact Info) Description 01/05/2022 Procedure Pass [facility], Ct Scan - [address] [address] Social History Tobacco Use Types Packs/Day Years [...] 6:33 PM EDT Cici Burgos RN * [place] Suicide Severity Rating Scale (Screener/Recent Self-Report) Question [...] documented as of this encounter Care Teams Payroll And Benefits Specialist Relationship Specialty Start Date End Date Des Sanchez MD [address] [place] [address] PCP - General Internal Medicine 11/22/21 documented as of this encounter Additional Source Comments The information contained in this document represents components of the legal health record. It is not the complete legal health record.[facility]
--- OUTSIDE RECORDS SUMMARY | 2025-03-01 11:41 | XMS_ITS | Clinical Summary ---
Author Organization [facility] Address [address] [id number] Phone Care Team Providers Care Plating Engineer Name Role Phone Des Sanchez MD Primary Care Provider [phone] Allergies Active Allergy Reactions Criticality Noted Date [...] EDT) SODIUM 138 133 - 146 mmol/L CHLORIDE 107 96 - 108 mmol/L POTASSIUM 4.3 3.3 - 5.1 mmol/L CO2 24 21 - 35 mmol/L BUN 14 6 - 19 mg/dL CREATININE 1.20 0.5 - 1.5 mg/dL GLUCOSE 242(H) 70 - 99 mg/dL CALCIUM 9.7 8.4 - 10.3 mg/dL EGFR 47(L) >59 mL/min/1.7 3m2 Comment:Estimated glomerular filtration rate calculated using the CKD-EPI refit equation. ANION GAP 11 10 - 20 mmol/L Blood 01/07/2022 6:04 AM EDT 01/07/2022 6:21 AM EDT us Zahida Gonzalez MD LAB BLOOD ORDERABLES Final Result [address] [address] * TSH with reflex (01/06/2022 7:07 AM EDT) TSH 3.46 0.27 - 4.20 uIU/mL Blood 01/06/2022 7:07 AM EDT 01/06/2022 7:29 AM EDT us Elmer Ricks MD LAB BLOOD ORDERABLES Final Resu lt Performing Organization Address City/[facility]/ZIP Co de Phone Number [address] [address] * Hemoglobin A1c (01/06/2022 7:07 AM EDT) HEMOGLOBIN A1C 5.6 4.3 - 5.8 % 01/06/2022 7:07 AM EDT 01/06/2022 7:29 AM EDT Elmer Ricks MD LAB BLOOD ORDERABLES Final Resu lt [address] [place] [address] from Last 3 Months or Most Recently Relevant to Health Maintenance Insurance [employer] O MEDICARE REPLACEMENT [employer] O MEDICARE REPLACEMENT [employer] PPO MEDICARE REPLACEMENT [employer] PPO MEDICARE REPLACEMENT [employer] PPO MEDICARE REPLACEMENT [employer] PPO MEDICARE REPLACEMENT A[employer] PPO MEDICARE REPLACEMENT [employer] PPO MEDICARE REPLACEMENT [employer] PPO MEDICARE REPLACEMENT Advance Directives For more information, please contact: [phone] (9AM - 5PM [facility], Friday-Friday) * Full Code (Latest Code Status on File) Date Activated Date Inactivated Comments 01/05/2022 10:22 PM Question Answer Comments Code Status Confirmed With: Patient Code Status Communicated To: Inpatient Attending Care Teams Plating Engineer Relationship Specialty Start Date End Date Des Sanchez MD [address] [place] [address] PCP - General Internal Medicine 11/22/21 Additional Source Comments The information contained in this document represents components of the legal health record. It is not the complete legal health record.[facility]
--- OUTSIDE RECORDS SUMMARY | 2025-03-01 11:41 | XMS_ITS | Encounter Summary ---
Author Organization [facility] Address [address] [facility] [address] [place] [address] Phone Care Team Providers Care Post Acute Care Nurse Practitioner Name Role Phone Des Sanchez MD Primary Care Provider [phone] Encounter Details Date Type Department Care Team (Late st Contact Info) Description 01/05/2022 Procedure Pass [facility], Ct Scan - [address] [address] Social History Tobacco Use Types Packs/Day Years [...] 6:33 PM EDT Cici Burgos RN * [place] Suicide Severity Rating Scale (Screener/Recent Self-Report) Question [...] documented as of this encounter Care Teams Post Acute Care Nurse Practitioner Relationship Specialty Start Date End Date Des Sanchez MD [address] [place] [address] PCP - General Internal Medicine 11/22/21 documented as of this encounter Additional Source Comments The information contained in this document represents components of the legal health record. It is not the complete legal health record.[facility]
--- OUTSIDE RECORDS SUMMARY | 2025-03-01 11:41 | XMS_ITS | Encounter Summary ---
Author Organization [facility] Address [address] [facility] [address] [place] [address] Phone Care Team Providers Care Team Cdl Driver Name Role Phone Des Sanchez MD Primary Care Provider [phone] Encounter Details Date Type Department Care Team (Late st Contact Info) Description 01/05/2022 Procedure Pass [facility], Ct Scan - [address] [address] Social History Tobacco Use Types Packs/Day Years [...] 6:33 PM EDT Cici Burgos RN * [place] Suicide Severity Rating Scale (Screener/Recent Self-Report) Question [...] documented as of this encounter Care Teams Team Cdl Driver Relationship Specialty Start Date End Date Des Sanchez MD [address] [place] [address] PCP - General Internal Medicine 11/22/21 documented as of this encounter Additional Source Comments The information contained in this document represents components of the legal health record. It is not the complete legal health record.[facility]
--- OUTSIDE RECORDS SUMMARY | 2025-03-01 11:41 | XMS_ITS | Encounter Summary ---
Author Organization [facility] Address [address] [place] [address] Phone Care Team Providers Care Life Skills Coach Name Role Phone Jaylen Taylor CNP Primary Care Provider [phone] Encounter Details Date Type Department Care Team (Late st Contact Info) Description 04/22/2022 Telephone [facility] [address] [place] [address] Ilir Roca MD Social History [...] thank you, order was faxed over to [facility] * Telephone Encounter [...] [facility] [address] [place] [phone] Elia Winters MD [address] [address] documented as of this encounter Visit Diagnoses Not on filedocumented in this encounter Care Teams Life Skills Coach Relationship Specialty Start Date End Date Jaylen Taylor CNP [address] [place] [address] PCP - General 04/04/23 documented as of this encounter
--- OUTSIDE RECORDS SUMMARY | 2025-03-01 11:41 | XMS_ITS | Encounter Summary ---
Author Organization [facility] Address [address] [facility] [address] [place] [address] Phone Care Team Providers Care Animal Cop Name Role Phone Des Sanchez MD Primary Care Provider [phone]- [phone] Encounter Details Date Type Department Care Team (Late st Contact Info) Description 01/05/2022 Procedure Pass [facility], Ct Scan - [address] [address] Social History Tobacco Use Types Packs/Day Years [...] 6:33 PM EDT Cici Burgos RN * [place] Suicide Severity Rating Scale (Screener/Recent Self-Report) Question [...] documented as of this encounter Care Teams Animal Cop Relationship Specialty Start Date End Date Des Sanchez MD [address] [place] [address] PCP - General Internal Medicine 11/22/21 documented as of this encounter Additional Source Comments The information contained in this document represents components of the legal health record. It is not the complete legal health record.[facility]
--- OUTSIDE RECORDS SUMMARY | 2025-03-01 11:41 | XMS_ITS | Continuity of Care Document ---
Author Organization [facility] [address] [facility] [address] [place] [address] Phone [phone] Care Team Providers Care Veneer Taping Machine Operator Name Role Phone Claudia York CNP Care Team Information Receive r [phone] Problems Active Problems Provider Date Osteoporosis Emanuel [...] Indications Ordering Provider Date Vitamin D (Ergocalciferol)1.25mg (39595 Ut) Capsules 1 tab by mouth every week 8caps Emanuel Cueva M.D. 06/20/2023 Lisinopril2.5mg Tablets Take 1 Tablet Orally Every Evening Unknown Clopidogrel Zvbsvkzrf34wq Tablets Take 1 Tablet By Mouth Every Day Des Sanchez MD Amlodipine Kkqxjver37pk Tablets Take 1 Tablet By Mouth Every Day Unknown Puzkpfssgm520pu Tablets Take 1 Tablet By Mouth 2 Times A Day For 30 Days Claudia York CNP Ferrous Xpgvrtz564(65Fe) mg Tablets Take 1 Tablet By Mouth 1 Time Each Day With Breakfast. Unknown Pramipexole Dihydrochloride0.125mg Tablets Take 2 By Mouth Daily Des Sanchez MD Dcpzhsynrs757iw Capsules Take 1 Capsule By Mouth Three Times A Day Unknown Sertraline SDI329uv Tablets Take 1 Tablet By Mouth Twice A Day Des Sanchez MD Metformin GCS684tk Tablets Take 1 Tablet By Mouth Twice A Day Des Sanchez MD Atorvastatin Ntytzra38on Tablets Take 1 Tablet By Mouth Every Day Des Sanchez MD Levothyroxine Lamgxx186dwi Tablets Take 1 Tablet By Mouth Every Day Des Sanchez MD Vital Signs Date Vital Result Comment 06/16/2023 9:37am BP Systolic 110 mmHg BP Diastolic 70 mmHg Heart Rate 72 /min Height 64 inches 5'4 Weight 128.12 lb BMI (Body Mass Index) 22.0 kg/m2 Results Test Acquired Date Facility Test Result H/L Range N ote Basic Metabolic Panel 06/16/2023 [facility] Reference Lab Glucose 102 mg/dL High (70-99) BUN 24 mg/dL High (8-23) Creatinine 1.3 mg/dL High (0.5-1.0) Sodium 140 mmol/L (133-145) Potassium 5.2 mmol/L (3.6-5.2) Chloride 105 mmol/L (98-107) Bicarbonate 20 mmol/L Low (22-29) Anion Gap 15 (4-17) Calcium 10.4 mg/dL (8.6-10.5 ) Estimated GFR Creatinine 41 ML/MIN/1.7 3M2 1 25Oh Vitamin D 06/16/2023 [facility] Reference Lab 25Oh Vitamin D 14.9 NG/ML Low (20-50) Albumin 06/16/2023 [facility] Reference Lab Albumin 4.6 GM/DL (3.4-4.8) PTH, Intact 06/16/2023 [facility] Reference Lab PTH, Intact 102 pg/mL High (15-65) Phosphorus 06/16/2023 [facility] Reference [facility] Phosphorus 3.6 mg/dL (2.5-4.5) [...] E11.9 Type 2 diabetes mellitus* New Labs:* Orwurry-Ho-Aygap, Ordered: 06/16/23 * Creat Clearance, Ordered: 06/16/23 * N-Telopeptide Cross Links, Urine, Ordered: 06/16/23 Functional Status Description No Information Available Mental Status Description No Information Available Referrals Description No Information Available
--- OUTSIDE RECORDS SUMMARY | 2025-03-01 11:41 | XMS_ITS | Encounter Summary ---
Author Organization [facility] Address [address] [facility] [address] [place] [address] Phone Care Team Providers Care Manager Fine Dining Name Role Phone Des Sanchez MD Primary Care Provider [phone] Encounter Details Date Type Department Care Team (Late st Contact Info) Description 01/05/2022 Procedure Pass [facility], Ct Scan - [address] [address] Social History Tobacco Use Types Packs/Day Years [...] 6:33 PM EDT Cici Burgos RN * [place] Suicide Severity Rating Scale (Screener/Recent Self-Report) Question [...] as of this encounter Care Teams Manager Fine Dining Relationship Specialty Start Date End Date Des Sanchez MD [address] [place] [address] PCP - General Internal Medicine 11/22/21 documented as of this encounter Additional Source Comments The information contained in this document represents components of the legal health record. It is not the complete legal health record.[facility]
[2025-03-01 11:43] LABS: INTERNATIONAL NORM RATIO 0.9 (0.9-1.1); Prothrombin Time 10.4 SEC (10.9-12.4)
[2025-03-01 12:02] LABS: Anion Gap 11 (12-20); Blood Urea Nitrogen 27 mg/dL (9-16); Calcium 10.3 mg/dL (8.4-10.2); Carbon Dioxide 26 mmol/L (22-29); Chloride 109 mmol/L (96-108); Estimated Glomerular Filt Rate 35; Potassium 5.0 mmol/L (3.3-5.1); Sodium 141 mmol/L (135-145)
[2025-03-01 13:52] LABS: Free T4 (Free Thyroxine) 1.02 ng/dL (0.71-1.85)
[2025-03-02 11:43] LABS: Appearance Urine Clear; Glucose Urine UA Negative (Negative); PH 6.0 (5.0-9.0); Specific Gravity - Urine 1.010 (1.005-1.025); UMIC TRIGGER UACC YES
[2025-03-02 11:51] LABS: UACC Culture Trigger YES
== END 2025-03-01 09:55 | disposition home or self-care (01) ==
LOC: HO.WFDLDS 09:54
PROVIDERS: Referring Provider Internal Medicine Cardiovascular Disease; Visit Provider Nurse Practitioner Family
DX: I25.10 Atherosclerotic heart disease of native coronary artery without angina pectoris (principal); E11.9 Type 2 diabetes mellitus without complications; E03.9 Hypothyroidism, unspecified; Z09 Encounter for follow-up examination after completed treatment for conditions other than malignant neoplasm
CPT/HCPCS: 36415; 80048; 81001; 82306; 83036; 84439; 84443; 85025; 85610; 87086; 87088; 87186

== ENCOUNTER 2025-03-02 09:43 | Outpatient (AMB) | payer MEDICARE, SELFPAY ==
[2025-03-02 10:00] VITALS: BP 164/76; PULSE 72; O2SAT 98; BMI 21.7
--- NOTE | 2025-03-02 10:00 | MHC.OFFVIS ---
Vital Signs 03/02/25 10:00 Height 5 ft 4 in Weight 126 lb 6 oz BMI 21.7 BP 164/76 H Blood Pressure Location Rt brachial Position Sitting Pulse 72 Pulse Source Pulse Oximeter Pulse Oximetry (%) 98 Oxygen Delivery Method Room Air Intake Visit Reasons: COPD Allergies acetaminophen (From Percocet) Allergy (Intermediate, Verified 03/02/25 10:03) Itching oxycodone (From Percocet) Allergy (Intermediate, Verified 03/02/25 10:03) Itching Seasonal Allergies Allergy (Intermediate, Verified 03/02/25 10:03) Itchy Eyes ibuprofen (From Motrin) Allergy (Unknown, Verified 03/02/25 10:03) Swelling wheat Adverse Reaction (Unknown, Verified 03/02/25 10:03) Diarrhea lactose Adverse Reaction (Verified 03/02/25 10:03) Diarrhea HPI HPI COPD: Details: Pallavi is a pleasant 79-year-old female, current 70 pack year smoker, with underlying COPD, hypertension, aortic stenosis, diastolic dysfunction on lasix 20mg, hyperlipidemia, diabetes mellitus, chronic kidney disease stage 3, peripheral vascular disease, and tachybradycardia status post pacemaker placement and h/o acute hypoxic respiratory failure secondary to fluid overload. At that time, she was prescribed Lasix 20 mg daily to manage fluid retention QD, previously PRN however continues to use PRN. She reports moderate control on Breztri however continues to use DuoNeb 2-3 times per day with good effect. At the last visit, she reported bronchitic symptoms treated with Doxycycline with improvements in frequency, unfortunately continues to report productive cough with tenacious yellow sputum with intermittent chest congestion. Denies fevers or chills. She reports using 2 liters of oxygen at night due to occasional drops in oxygen saturation into the 80s, otherwise does not use during the day. DME is [employer]. 6MWT performed at the last visit and patient did not require supplemental oxygen with exertion. Today she presents to review overnight oximetry results in addition to Chest CT results. Prior CT 08/2024 revealed 1.5 cm RML pulmonary nodule, reportedly present for quite some time and stable. [facility], [facility] Medical History Laboratory tests ordered as part of a complete physical exam (CPE) Screening for lung cancer Colon cancer screening Normal physical examination, routine Viral upper respiratory illness Cardiac pacemaker in situ Runny nose Smoking 1/2 pack a day or less SOB (shortness of breath) on exertion Smoking greater than 30 pack years Diarrhea Osteopenia Breast cancer screening Chronic diarrhea Skin tear of left upper arm without complication Aortic stenosis Restless leg syndrome No pertinent family history Hyperlipidemia Chronic back pain Osteoarthritis GERD (gastroesophageal reflux disease) Anxiety and depression Type 2 diabetes mellitus Hypertension CKD (chronic kidney disease) stage 3, GFR 30-59 ml/min Hypothyroidism Cataracts, bilateral COPD (chronic obstructive pulmonary disease) Deafness in right ear Stroke Surgical History History of esophagogastroduodenoscopy (EGD) H/O colonoscopy History of tonsillectomy History of appendectomy H/O: hysterectomy History of back surgery H/O thyroidectomy H/O endarterectomy S/P cardiac pacemaker procedure Family History Mother Bladder cancer Brother Bladder cancer Social History Household Members: Children Housing: House Do you presently have visiting nurse or other home services: No Alcohol intake: never Patient Tobacco Use Status: Current everyday Tobacco user Tobacco use type: Cigarette Cigarette Packs Per Day: 0.25 Cigarettes Per Day: 5 Years Smoked: 70 e-Cigarette/Vaping Use: Former Use Second Hand Smoke Exposure: No Substance Use Type: Marijuana service: No Current occupational status: retired Current occupational exposures/hazards: No Cognitive needs: No Hearing needs: No Vision needs: No Review of Systems Const Denies chills, Denies excessive sweating, Denies fever(s), Denies headache(s) and Denies night sweats Eyes Denies dry eyes, Denies irritation and Denies itchy eyes ENT Reports Normal hearing present and Denies headache(s) Card Denies chest pain, Denies chest pain at rest, Denies chest pain with activity, Denies claudication, Denies leg edema, Reports dyspnea on exertion and Denies paroxysmal nocturnal dyspnea Resp Reports change in phlegm color, Reports chest congestion, Reports cough, Denies hemoptysis, Denies excessive phlegm production, Denies pain on inspiration, Denies pain with cough, Reports dyspnea on exertion and Denies stridor Musc Denies myalgias Neuro Reports Normal hearing present and Denies headache(s) Endo Denies excessive sweating Arnold/Lymph Denies lymphadenopathy Aller/Immun Denies itchy eyes and Denies seasonal rhinorrhea Physical Exam Vital Signs: Last Vital Signs Pulse 72 03/02/25 10:00 BP 164/76 H 03/02/25 10:00 Pulse Ox 98 03/02/25 10:00 Oxygen Delivery Method Room Air 03/02/25 10:00 BMI result Body Mass Index 21.7 Const General: cooperative, healthy appearing, comfortable, no acute distress and alert Nutritional Appearance: thin Orientation/consciousness: patient oriented x3 Limitations: no limitations HEENT Head: Yes normal to inspection, Yes normocephalic and Yes atraumatic Ears: hearing grossly normal bilaterally and external ears normal Eyes General: appearance normal, both eyes and all related structures Eyelids: Yes eyelids normal Sclerae: sclerae normal EOM: EOMs intact bilaterally Neck Neck: Yes normal visual inspection and Yes no lymphadenopathy Lymphatic: no lymphadenopathy noted Chest Chest palpation & inspection: normal inspection of the chest Resp Effort & Inspection: normal respiratory effort, able to speak in complete sentences, no audible wheezes, no cough, no stridor, not tachypneic, no tripod positioning and no use of accessory muscles Auscultation: diminished lung sounds Cardio Jugular venous distension: no JVD Rate: regular rate Rhythm: regular rhythm Skin Other: warm, dry General skin exam: no rashes or lesions noted Neuro General: patient oriented x3 Cranial nerves: Yes Normal hearing present Cognition (Neuro): normal cognition Gait exam (Neuro): Normal gait present Extrem General: Yes normal to inspection, Yes capillary refill normal, Yes no clubbing, cyanosis or edema and Yes no pedal edema Psych Appearance: grossly normal and well kempt Speech and movement: Normal speech and movement present and Clear speech present Affect: normal affect Attitude: cooperative Thought process: Normal thought process present Thought content: Normal thought content present Insight: Good insight present (Psych) Judgement: Good judgement present (Psych) Results Reviewed Results Reviewed: [address] [address] [address] Scan Report Signed Patient: Pallavi Mukherjee MR#: [id number] : 1945 Acct:[id number] Age/Sex: 79 / F ADM Date: 02/24/25 Loc: HO.CT Attending : Jaylen Taylor CNP Ordering Physician: Alice Haley NP Date of Service: 02/24/25 Procedure(s): CT chest wo IV con Accession Number(s): [id number] cc: Alice Haley OPTOMETRIST ASSISTANT; Jaylen Taylor GREENHOUSE WORKER~ Report Number: [id number]: Total DLP = 475.00 mGy-cm Reason for Exam: R91.1 - Solitary pulmonary nodule EXAMINATION: CT CHEST WITHOUT CONTRAST CLINICAL INFORMATION: R91.1 - Solitary pulmonary nodule COMPARISON: August 31, 2024 TECHNIQUE: Multidetector volumetric CT imaging of the chest was done. Axial MIP volume rendering provided. Sagittal and coronal reformatted images were obtained. This CT examination was performed using dose optimization techniques as appropriate, variously including the following: *Automated exposure control *Adjustment of mA and/or kV according to patient size (this includes techniques or standardized protocols for targeted exams where dose is matched to indication/reason for exam; i.e. extremities or head) *Use of iterative reconstruction technique FINDINGS: LUNGS: Again seen is a 2 mm solid pulmonary nodule in the posterior left lower lobe (image 68/139) Again seen is a mass in the anterior right lung, probably within right middle lobe, near an incomplete minor fissure. It measures 13 x 16 mm. It contains gross fat, coarse calcifications, soft tissue, and fluid density. Lungs are otherwise clear. MEDIASTINUM: There are surgical clips related to thyroidectomy. There are shotty precarinal lymph nodes. They are similar to the prior. 2-lead pacemaker terminates in the right atrium and right ventricle. CORONARY ARTERY CALCIFICATION: Dense PLEURA: There is no pleural effusion. No pleural mass or thickening. AXILLA: No lymphadenopathy. UPPER ABDOMEN: Unremarkable. OSSEOUS STRUCTURES: Chronic mild compression fractures are noted at T1, T4, and T6. 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 Stable solitary pulmonary nodule in the posterior segment left lower lobe . No further follow-up is indicated per Fleischner Society recommendations, unless the patient falls into a high risk category, in which case a 12 month follow-up CT chest without contrast is optional. High risk patients includes those with a history of smoking, first-degree relative with lung cancer, or exposure to uranium, radon, or asbestos. Thyroidectomy. Stable mild compression fractures are present at T1, T4, and T6. Fleischner guidelines were followed. Electronically signed by: Ryan Mobley MD 02/24/2025 05:28 PM EDT RP Dictated By: Ryan Mobley MD Signed By: <Electronically signed by Ryan Mobley MD in OV> 02/24/25 1728 DD/ 1654 TD/TT: 02/24/25 1709 Steam Engineer: Assessment & Plan Assessment & Plan (1) COPD (chronic obstructive pulmonary disease): Code(s): J44.9 - Chronic obstructive pulmonary disease, unspecified Category: Medical Qualifiers: COPD type: emphysema Emphysema type: panlobular Qualified Code(s): J43.1 - Panlobular emphysema (2) Nicotine dependence, cigarettes, uncomplicated: Code(s): F17.210 - Nicotine dependence, cigarettes, uncomplicated Category: Medical (3) Pulmonary nodule 1 cm or greater in diameter: Code(s): R91.1 - Solitary pulmonary nodule Category: Medical Plan Will treat bronchitic symptoms with Vantin. She is aware to call if symptoms do not improve or seek emergent care if worsen. During the visit, I discussed with the patient the importance of continuing her current medication regimen, with Terri. Will also send a flutter valve to improve mucus clearance. Reviewed overnight oximetry test results which continue to reveal nocturnal hypoxemia <88% for approximately 1 hour and <89% 1.5 hours. Recommended patient continue 2L supplemental oxygen at [facility]. There was note of desaturations during overnight oximetry suggestive of underlying SHRAVAN however home sleep study in 09/[address]. 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 Advised her to monitor her oxygen saturation levels to maintain >92%. Smoking cessation reviewed, patient not interested in quitting at this time. All questions were answered and patient is in agreement of plan. Will follow up in 8 weeks or sooner if needed. Orders: Orders CT chest wo IV con 11 Months R91.1 - Solitary pulmonary nodule Medications: New cefpodoxime must administer with a meal/food 200 mg PO BID 20 tabs 0RF Refilled cayskunqat-cxscsier-dgrvspagak 160-9-4.8 mcg/actuation (Breztri Aerosphere) 2 inhalations inhalation BID 10.7 grams 6RF ipratropium-albuterol 0.5 mg-3 mg(2.5 mg base)/3 mL 3 mL inhalation Q6H PRN 180 mL 2RF wheezing Coding Level of Care Code Est Pt Level 4 (90270) Complex EM visit Add On G2211 Diagnoses Panlobular emphysema J43.1 COPD type: emphysema Emphysema type: panlobular Nicotine dependence, cigarettes, uncomplicated F17.210 Pulmonary nodule 1 cm or greater in diameter R91.1
--- OUTSIDE RECORDS SUMMARY | 2025-03-02 11:38 | XMS_ITS | Encounter Summary ---
Author Organization [facility] Address [address] [place] [address] Phone Care Team Providers Care Manager Law Name Role Phone Des Sanchez MD Primary Care Provider [phone]- [phone] Encounter Details Date Type Department Care Team (Late st Contact Info) Description 01/05/2022 Procedure Pass [facility], Ct Scan - [address] [address] Social History Tobacco Use Types Packs/Day Years [...] 6:33 PM EDT Cici Burgos RN * [place] Suicide Severity Rating Scale (Screener/Recent Self-Report) Question [...] as of this encounter Care Teams Manager Law Relationship Specialty Start Date End Date Des Sanchez MD [address] [place] [address] PCP - General Internal Medicine 11/22/21 documented as of this encounter Additional Source Comments The information contained in this document represents components of the legal health record. It is not the complete legal health record.[facility]
--- OUTSIDE RECORDS SUMMARY | 2025-03-02 11:38 | XMS_ITS | Encounter Summary ---
Author Organization [facility] Address [address] [facility] [address] [place] [address] Phone Care Team Providers Care Chucker Name Role Phone Des Sanchez MD Primary Care Provider [phone]- [phone] Encounter Details Date Type Department Care Team (Late st Contact Info) Description 01/05/2022 Procedure Pass [facility], Ct Scan - [address] [address] Social History Tobacco Use Types Packs/Day Years [...] 6:33 PM EDT Cici Burgos RN * [place] Suicide Severity Rating Scale (Screener/Recent Self-Report) Question Answer Date of Assessment Author 1. Wish to be (Past 1 Month) No 01/05/2022 6:33 PM EDT Cici Burgos RN 2. Non-Specific Active Suici laine Thoughts (Past 1 Month) No 01/05/2022 6:33 PM EDT Akiko Burgos RN 6. Suicidal Behavior (Lifetime) No 6:33 PM EDT Ciic Burgos RN documented as of this encounter Plan of Treatment Not on file documented as of this encounter Visit Diagnoses Not on filedocumented in this encounter Additional Health Concerns Infection Onset Date Last Indicated Resolved Time MRSA 11/22/2021 11/22/2021 11/22/2023 1:23 AM EDT documented as of this encounter Care Teams Chucker Relationship Specialty Start Date End Date Des Sanchez MD [address] [place] [address] PCP - General Internal Medicine 11/22/21 documented as of this encounter Additional Source Comments The information contained in this document represents components of the legal health record. It is not the complete legal health record.[facility]
--- OUTSIDE RECORDS SUMMARY | 2025-03-02 11:38 | XMS_ITS | Encounter Summary ---
Author Organization [facility] Address [address] [facility] [address] [place] [address] Phone Care Team Providers Care Emergency Response Technician Name Role Phone Des Sanchez MD Primary Care Provider +1- [phone] Encounter Details Date Type Department Care Team (Late st Contact Info) Description 01/05/2022 Procedure Pass [facility], Ct Scan - [address] [address] Social History Tobacco Use Types Packs/Day Years [...] 6:33 PM EDT Cici Burgos RN * [place] Suicide Severity Rating Scale (Screener/Recent Self-Report) Question [...] documented as of this encounter Care Teams Emergency Response Technician Relationship Specialty Start Date End Date Des Sanchez MD [address] [place] [address] PCP - General Internal Medicine 11/22/21 documented as of this encounter Additional Source Comments The information contained in this document represents components of the legal health record. It is not the complete legal health record.[facility]
--- OUTSIDE RECORDS SUMMARY | 2025-03-02 11:38 | XMS_ITS | Encounter Summary ---
Author Organization [facility] Address [address] [facility] [address] [place] [address] Phone Care Team Providers Care Quality Measurement Specialist Name Role Phone Des Sanchez MD Primary Care Provider [phone]- [phone] Encounter Details Date Type Department Care Team (Late st Contact Info) Description 01/05/2022 Procedure Pass [facility], Ct Scan - [address] [address] Social History Tobacco Use Types Packs/Day Years [...] 6:33 PM EDT Cici Burgos RN * [place] Suicide Severity Rating Scale (Screener/Recent Self-Report) Question [...] documented as of this encounter Care Teams Quality Measurement Specialist Relationship Specialty Start Date End Date Des Sanchez MD [address] [place] [address] PCP - General Internal Medicine 11/22/21 documented as of this encounter Additional Source Comments The information contained in this document represents components of the legal health record. It is not the complete legal health record.[facility]
--- OUTSIDE RECORDS SUMMARY | 2025-03-02 11:38 | XMS_ITS | Continuity of Care Document ---
Author Organization [facility] [address] [place] [address] Phone [phone] Care Team Providers Care Cable Splicer Helper Name Role Phone Claudia York CNP Care Team Information Receive r [phone] Problems Active Problems Provider Date Osteoporosis Emanuel [...] Indications Ordering Provider Date Vitamin D (Ergocalciferol)1.25mg (96951 Ut) Capsules 1 tab by mouth every week 8caps Emanuel Cueva M.D. 06/20/2023 Lisinopril2.5mg Tablets Take 1 Tablet Orally Every Evening Unknown Clopidogrel Mcyusrltb26up Tablets Take 1 Tablet By Mouth Every Day Des Sanchez MD Amlodipine Triedgwp45tu Tablets Take 1 Tablet By Mouth Every Day Unknown Dmzaaasvbt810pi Tablets Take 1 Tablet By Mouth 2 Times A Day For 30 Days Claudia York CNP Ferrous Ofkhgoe744(65Fe) mg Tablets Take 1 Tablet By Mouth 1 Time Each Day With Breakfast. Unknown Pramipexole Dihydrochloride0.125mg Tablets Take 2 By Mouth Daily Des Sanchez MD Cxynlujphm534yd Capsules Take 1 Capsule By Mouth Three Times A Day Unknown Sertraline FSJ417bs Tablets Take 1 Tablet By Mouth Twice A Day Des Sanchez MD Metformin FVO501dg Tablets Take 1 Tablet By Mouth Twice A Day Des Sanchez MD Atorvastatin Ewlmqwe28hb Tablets Take 1 Tablet By Mouth Every Day Des Sanchez MD Levothyroxine Ffmmug354zlp Tablets Take 1 Tablet By Mouth Every Day Des Sanchez MD Vital Signs Date Vital Result Comment 06/16/2023 9:37am BP Systolic 110 mmHg BP Diastolic 70 mmHg Heart Rate 72 /min Height 64 inches 5'4 Weight 128.12 lb BMI (Body Mass Index) 22.0 kg/m2 Results Test Acquired Date Facility Test Result H/L Range N ote Basic Metabolic Panel 06/16/2023 [facility] Glucose 102 mg/dL High (70-99) BUN 24 mg/dL High (8-23) Creatinine 1.3 mg/dL High (0.5-1.0) Sodium 140 mmol/L (133-145) Potassium 5.2 mmol/L (3.6-5.2) Chloride 105 mmol/L (98-107) Bicarbonate 20 mmol/L Low (22-29) Anion Gap 15 (4-17) Calcium 10.4 mg/dL (8.6-10.5 ) Estimated GFR Creatinine 41 ML/MIN/1.7 3M2 1 25Oh Vitamin D 06/16/2023 [facility] 25Oh Vitamin D 14.9 NG/ML Low (20-50) Albumin 06/16/2023 [facility] Albumin 4.6 GM/DL (3.4-4.8) PTH, Intact 06/16/2023 [facility] PTH, Intact 102 pg/mL High (15-65) Phosphorus 06/16/2023 [facility] Phosphorus 3.6 mg/dL (2.5-4.5) [...] E11.9 Type 2 diabetes mellitus* New Labs:* Htgyhhv-Qo-Zeogo, Ordered: 06/16/23 * Creat Clearance, Ordered: 06/16/23 * N-Telopeptide Cross Links, Urine, Ordered: 06/16/23 Functional Status Description No Information Available Mental Status Description No Information Available Referrals Description No Information Available
--- OUTSIDE RECORDS SUMMARY | 2025-03-02 11:38 | XMS_ITS | Encounter Summary ---
Author Organization [facility] Address [address] [facility] [address] [place] [address] Phone Care Team Providers Care Pi/Senior Research Associate Name Role Phone Des Sanchez MD Primary Care Provider [phone]- [phone] Encounter Details Date Type Department Care Team (Late st Contact Info) Description 01/05/2022 Procedure Pass [facility], Ct Scan - [address] [address] Social History Tobacco Use Types Packs/Day Years [...] 6:33 PM EDT Cici Burgos RN * [place] Suicide Severity Rating Scale (Screener/Recent Self-Report) Question [...] documented as of this encounter Care Teams Pi/Senior Research Associate Relationship Specialty Start Date End Date Des Sanchez MD [address] [place] [address] PCP - General Internal Medicine 11/22/21 documented as of this encounter Additional Source Comments The information contained in this document represents components of the legal health record. It is not the complete legal health record.[facility]
--- OUTSIDE RECORDS SUMMARY | 2025-03-02 11:38 | XMS_ITS | Clinical Summary ---
Author Organization [facility] Address [address] [id number] Phone Care Team Providers Care Health Plan Manager Name Role Phone Des Sanchez MD Primary Care Provider +1- [phone] Allergies Active Allergy Reactions Criticality Noted Date [...] EDT) SODIUM 138 133 - 146 mmol/L [facility] CHLORIDE 107 96 - 108 mmol/L [facility] POTASSIUM 4.3 3.3 - 5.1 mmol/L [facility] CO2 24 21 - 35 mmol/L [facility] BUN 14 6 - 19 mg/dL [facility] CREATININE 1.20 0.5 - 1.5 mg/dL [facility] GLUCOSE 242(H) 70 - 99 mg/dL [facility] CALCIUM 9.7 8.4 - 10.3 mg/dL [facility] EGFR 47(L) >59 mL/min/1.7 3m2 [facility] Comment:Estimated glomerular filtration rate calculated using the CKD-EPI refit equation. ANION GAP 11 10 - 20 mmol/L [facility] Blood 01/07/2022 6:04 AM EDT 01/07/2022 6:21 AM EDT us Zahida Gonzalez MD LAB BLOOD ORDERABLES Final Result [address] [address] * TSH with reflex (01/06/2022 7:07 AM EDT) TSH 3.46 0.27 - 4.20 uIU/mL [facility] Blood 01/06/2022 7:07 AM EDT 01/06/2022 7:29 AM EDT us Elmer Ricks MD LAB BLOOD ORDERABLES Final Resu lt Performing Organization Address City/[facility]/ZIP Co de Phone Number [address] [address] * Hemoglobin A1c (01/06/2022 7:07 AM EDT) HEMOGLOBIN A1C 5.6 4.3 - 5.8 % [facility] 01/06/2022 7:07 AM EDT 01/06/2022 7:29 AM EDT Elmer Ricks MD LAB BLOOD ORDERABLES Final Resu lt [facility] [address] [place] [address] from Last 3 Months or Most Recently Relevant to Health Maintenance Insurance [employer] O MEDICARE REPLACEMENT [employer] O MEDICARE REPLACEMENT [employer] PPO MEDICARE REPLACEMENT [employer] PPO MEDICARE REPLACEMENT [employer] PPO MEDICARE REPLACEMENT [employer] PPO MEDICARE REPLACEMENT [employer] PPO MEDICARE REPLACEMENT [employer] PPO MEDICARE REPLACEMENT [employer] PPO MEDICARE REPLACEMENT Advance Directives For more information, please contact: [phone] (9AM - 5PM [facility], Friday-Friday) * Full Code (Latest Code Status on File) Date Activated Date Inactivated Comments 01/05/2022 10:22 PM Question Answer Comments Code Status Confirmed With: Patient Code Status Communicated To: Inpatient Attending Care Teams Health Plan Manager Relationship Specialty Start Date End Date Des Sanchez MD [address] [place] [address] PCP - General Internal Medicine 11/22/21 Additional Source Comments The information contained in this document represents components of the legal health record. It is not the complete legal health record.[facility]
--- OUTSIDE RECORDS SUMMARY | 2025-03-02 11:38 | XMS_ITS | Encounter Summary ---
Author Organization [facility] Address [address] [place] [address] Phone Care Team Providers Care Ip Technology Transactions Attorney Name Role Phone Jaylen Taylor CNP Primary Care Provider [phone] Encounter Details Date Type Department Care Team (Late st Contact Info) Description 04/22/2022 Telephone [facility] [address] [place] [address] Ilir Roca MD Social History [...] thank you, [place] [facility] [place] Telephone Encounter - Carmen Chamorro - [...] [facility] [address] [place] [phone] Elia Winters MD [address] [phone] documented as of this encounter Visit Diagnoses Not on filedocumented in this encounter Care Teams Ip Technology Transactions Attorney Relationship Specialty Start Date End Date Jaylen Taylor CNP [address] [place] [address] PCP - General 04/04/23 documented as of this encounter
--- OUTSIDE RECORDS SUMMARY | 2025-03-02 11:38 | XMS_ITS | Clinical Summary ---
Author Organization [facility] Address [address] [place] [phone] Phone Care Team Providers Care Sprinkler Worker Name Role Phone Jaylen Taylor JEB Primary [...] Office [facility] [address] [place] [phone] [place] [address] [place] [phone] Health Maintenance Due Date Last Done [...] 10.1 8.7 - 10.7 mg/dL eGFR Non-Afr Cypriot 33 Total Bilirubin 0.3 MG/DL ALT (SGPT) 12 U/L AST (SGOT) 12 U/L Alkaline Phosphatase 80 U/L Hemoglobin A1C 6.0 4.0 - 6.0 12/11/2021 Historical Provider LAB BLOOD ORDERABLES Lianet l Result from Last 3 Months or Most Recently Relevant to Health Maintenance Insurance [facility] Medicare [facility] Medicare Care Teams Sprinkler Worker Relationship Specialty Start Date End Date Jaylen Taylor CNP [address] [place] [address] PCP - General 04/04/23
--- OUTSIDE RECORDS SUMMARY | 2025-03-02 11:38 | XMS_ITS | Clinical Summary ---
Author Organization [facility] it Address [address] [place] [address] Care Team Providers Care Physics Technical Officer Name Role Phone Landy Sutherland MD Primary Care Provider [phone] Surgical History Surgery Date Site/Laterality Comments OTHER SURGICAL HISTORY PROCEDURE: [place] LAMNOTMY INCL W/DCMPRSN NRV ROOT 1 INTRSPC LUMBR; COMMENT: 3 back operations CAROTID ENDARTERECTOMY 2000 PROCEDURE: HISTORICAL CAROTID ENDART; COMMENT: right VAGINAL DELIVERY PROCEDURE: [place] VAGINAL DELIVERY ONLY; COMMENT: x2 ABDOMINAL SURGERY age 22 PROCEDURE: [place] UNLISTED PROCEDURE ABDOMEN PERITONEUM & OMENTUM; COMMENT: laparotomy with LSO for ruptured ectopic TONSILLECTOMY PROCEDURE: HISTORICAL TONSILLECTOMY Medical History Medical History Date Comments Esophageal reflux 03/01/2005 DX:Esophageal reflux Lumbago 03/01/2005 DX:Lumbago Thoracic [place], [place] [place] [facility] [place] 11/12/2004 DX:Thoracic aneurysm, ruptur ed ([facility] Peripheral vascular disease, unspecified ([facility] [place] 01/19/2004 DX:Sinoatrial node dysfuncti on ([facility] [...] with ophthalmic manifestations, not stated as uncontrolled(250.50) ([facility] V24, 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); COMMENT: Bilateral mild nuclear sclerosis. Type II or unspecified type diabetes mellitus with renal manifestations, not stated as uncontrolled(250.40) ([facility] V24, [facility] [place] DX:Peripheral vascular disea se ([facility] [...] age to complete this topic Care Teams Physics Technical Officer Relationship Specialty Start Date End Date Landy Sutherland MD PCP - General 05/24/22
--- OUTSIDE RECORDS SUMMARY | 2025-03-02 11:38 | XMS_ITS | Patient Health Record ---
Author Organization [facility] Address [address] [place] [address] Care Team Providers Care Door Hanger Name Role Phone Oscar Alicia MD Primary Care Provider Prashant Sibley Unavailable [phone] Allergies Allergen (clinical drug ingredient) Drug/Non Drug [...] confirmed Problem Information temporarily unavailable Atherosclerosis of [place] arteries of extremities with intermittent claudication, bilateral [...] Insured Coverage Start Date Coverage End Date [facility] [id number] [facility] [address] [place] [phone] [id number] Pallavi Mukherjee Self - patient is the [...]
== END 2025-03-02 10:34 | disposition home or self-care (01) ==
LOC: HO.HPSW 09:44
PROVIDERS: PCP Nurse Practitioner Family; Visit Provider Nurse Practitioner Family
DX: J43.1 Panlobular emphysema (principal); F17.210 Nicotine dependence, cigarettes, uncomplicated; R91.1 Solitary pulmonary nodule
CPT/HCPCS: 99214; G2211

== ENCOUNTER → 2025-03-02 09:43 | Outpatient (BNVA) | payer MEDICARE, SELFPAY | PROVIDERS: PCP Nurse Practitioner Family; Visit Provider Nurse Practitioner Family | DX: J43.1 Panlobular emphysema (principal); R91.1 Solitary pulmonary nodule; F17.210 Nicotine dependence, cigarettes, uncomplicated; I12.9 Hypertensive chronic kidney disease with stage 1 through stage 4 chronic kidney disease, or unspecified chronic kidney disease; E11.22 Type 2 diabetes mellitus with diabetic chronic kidney disease; N18.30 Chronic kidney disease, stage 3 unspecified; Z87.09 Personal history of other diseases of the respiratory system; Z95.0 Presence of cardiac pacemaker; Z79.899 Other long term (current) drug therapy | CPT/HCPCS: 99212 ==

== ENCOUNTER → 2025-03-03 23:59 | Outpatient (BNV) | payer MEDICARE, SELFPAY | PROVIDERS: PCP Nurse Practitioner Family; Visit Provider Internal Medicine Cardiovascular Disease | DX: I50.32 Chronic diastolic (congestive) heart failure (principal) | CPT/HCPCS: 93458; 99152 ==

== ENCOUNTER → 2025-03-04 23:59 | Outpatient (BNV) | payer MEDICARE, SELFPAY | PROVIDERS: PCP Nurse Practitioner Family; Visit Provider Internal Medicine Cardiovascular Disease | DX: I50.33 Acute on chronic diastolic (congestive) heart failure (principal); I25.118 Atherosclerotic heart disease of native coronary artery with other forms of angina pectoris | CPT/HCPCS: 92928; 92972; 92978; 92979; 99152 ==

== ENCOUNTER 2025-03-07 12:49 | Outpatient (AMB) | payer MEDICARE, SELFPAY ==
--- OUTSIDE RECORDS SUMMARY | 2025-03-06 12:05 | XMS_ITS | Continuity of Care Document ---
Author Organization [facility] ter Address [address] [place] [id number]- Care Team Providers Care Chisel Trimmer Name Role Phone Claudia GIRON, Jaylen Primary Care Physician Encounter [facility] Date(s): 03/03/25 - 03/06/[address] [id number] Discharge Disposition: A-D/C Home Attending Physician: Pio Castano DO Admitting Physician: Aidan Luna MD Referring Physician: Joseph Nicholas MD Encounter Type: Disch IP Allergies, Adverse Reactions, Alerts Substance Criticality Severity Reaction Reaction Severity Status statins Active Motrin Active Percocet Hives Active Cordran Tape Active Milk Products Active Wheat Active Functional Status Functional Status Assessment Assessment Assessment Component Result Effecti ve Date Unspecifed Functional Status Assessment Skin abnormality typ e (observable entity) Surgical incision 03/06/25 Functional Status Assessment Assessment Assessment Component Result Effecti ve Date Unspecifed Functional Status Assessment Skin abnormality typ e (observable entity) Surgical incision 03/06/25 Functional Status Assessment Assessment Assessment Component Result Effecti ve Date Unspecifed Functional Status Assessment Skin abnormality typ e (observable entity) Surgical incision 03/06/25 Functional Status Assessment Assessment Assessment Component Result Effecti ve Date Total Falls Risk Score 11 Functional Status Assessment Assessment Assessment Component Result Effecti ve Date Justin scale total score 20 Functional Status Assessment Assessment Assessment Component Result Effecti ve Date Total score [AUDIT] 0 03/03/25 Functional Status Assessment Assessment Assessment Component Result Effecti ve Date Justin scale total score 20 03/06/25 Functional Status Assessment Assessment Assessment Component Result Effecti ve Date Total Falls Risk Score 11 03/04 Immunizations Given and Recorded Vaccine Date Status Refusal Reason influenza virus vaccine, inactivated 02/14/22 Laz rded influenza virus vaccine, inactivated 03/11/14 Laz rded influenza virus vaccine, inactivated 01/20/13 Laz rded influenza virus vaccine, inactivated 01/16/12 Laz rded influenza virus vaccine, inactivated 02/04/11 Laz rded influenza virus vaccine, inactivated 02/15/10 Laz rded influenza virus vaccine, inactivated 02/23/08 Laz rded influenza virus vaccine, inactivated 03/19/07 Laz rded influenza virus vaccine, inactivated 02/25/06 Laz rded influenza virus vaccine, inactivated 03/01/05 Laz rded tetanus/diphtheria/pertussis, acel(Tdap) 11/22/21 Recorded tetanus/diphtheria/pertussis, acel(Tdap) 09/21/08 Recorded pneumococcal 23-valent vaccine 09/04/09 Recorded pneumococcal 23-valent vaccine 06/04/02 Recorded Zoster Vaccine Live 04/06/09 Recorded Medications albuterol 0.083% inhalation solution 3 mL = 2.5 mg, Inhalation, Every 6 hours, PRN for wheezing, # 25 each, 0 Refills, Maintenance, 09/20/24 9:46:00 AM EDT, Solution, Partial fill upon patient request if the prescription is for a schedule II opioid drug. Start Date: 09/20/24 Status: Ordered Medication Dispense Status: Completed Quantity: 25.0 Unit: each Total Allowed Fills: 1 Fills Dispensed: 0 amLODIPine 5 mg oral tablet 5 mg, 1, tablet, By Mouth, 2 times a day, # 60 tablet, Refills 0, Tot. Refills 0, Maintenance, 12/05/24 10:29:00 AM EDT, Route to Pharmacy Electronically, [facility]/pharmacy #[id number], Partial fill upon patient request if the prescription is for a schedule II opioid drug., 162, cm, 12/05/24 7:22:00 EDT, Height, 55, kg, 12/01/24 15:31:00 EDT, Dry Weight Start Date: 12/05/24 Stop Date: 01/04/25 Status: Ordered Medication Dispense Status: Completed Quantity: 60.0 Unit: tablet Total Allowed Fills: 1 Fills Dispensed: 0 aspirin 81 mg oral capsule 1 capsule = 81 mg, By Mouth, Daily, 0 Refills, Maintenance, 01/10/24 2:17:00 AM EDT, Partial fill upon patient request if the prescription is for a schedule II opioid drug. Start Date: 01/10/24 Status: Ordered Medication Dispense Status: Completed Total Allowed Fills: 1 Fills Dispensed: 0 cetirizine 10 mg oral tablet 1 tablet = 10 mg, By Mouth, Daily, # 30 tablet, 0 Refills, Maintenance, 09/20/24 9:43:00 AM EDT, Tablet, Partial fill upon patient request if the prescription is for a schedule II opioid drug. Start Date: 09/20/24 Status: Ordered Medication Dispense Status: Completed Quantity: 30.0 Unit: tablet Total Allowed Fills: 1 Fills Dispensed: 0 ezetimibe 10 mg oral tablet 1 tablet = 10 mg, By Mouth, Daily, # 30 tablet, 0 Refills, Maintenance, 01/10/24 2:18:00 AM EDT, Tablet, Partial fill upon patient request if the prescription is for a schedule II opioid drug. Start Date: 01/10/24 Status: Ordered Medication Dispense Status: Completed Quantity: 30.0 Unit: tablet Total Allowed Fills: 1 Fills Dispensed: 0 famotidine 20 mg oral tablet 20 mg, By Mouth, Daily, # 30 capsule, Refills 0, Tot. Refills 0, Maintenance, 01/12/24 7:42:00 AM EDT, Route to Pharmacy Electronically, [facility]/pharmacy #[id number], Partial fill upon patient request if the prescription is for a schedule II opioid drug., 163, cm, 01/12/24 7:34:00 EDT, Height, 57.9, kg, 01/10/24 3:07:00 EDT, Dry Weight Start Date: 01/12/24 Stop Date: 02/11/24 Status: Ordered Medication Dispense Status: Completed Quantity: 30.0 Unit: capsule Total Allowed Fills: 1 Fills Dispensed: 0 ferrous sulfate 325 mg oral tablet TAKE 1 TABLET BY MOUTH 1 TIME EACH DAY WITH BREAKFAST. Start Date: 05/01/22 Status: Ordered Medication Dispense Status: Completed Total Allowed Fills: 1 Fills Dispensed: 0 furosemide 20 mg oral tablet 20 mg, 1, tablet, By Mouth, Daily, # 30 tablet, Refills 0, Tot. Refills 0, Maintenance, 12/05/24 10:29:00 AM EDT, Route to Pharmacy Electronically, [facility]/pharmacy #[id number], Partial fill upon patient requestif the prescription is for a schedule II opioid drug., 162, cm, 12/05/24 7:22:00 EDT, Height, 55, kg, 12/01/24 15:31:00 EDT, Dry Weight Start Date: 12/05/24 Stop Date: 01/04/25 Status: Ordered Medication Dispense Status: Completed Quantity: 30.0 Unit: tablet Total Allowed Fills: 1 Fills Dispensed: 0 gabapentin 300 mg oral capsule 600 mg, Capsule, By Mouth, 03/06/25 9:00:00 AM EST Start Date: 03/06/25 Stop Date: 03/06/25 Status: Completed Medication Dispense Status: Completed Total Allowed Fills: 1 Fills Dispensed: 0 gabapentin 600 mg oral tablet 1 tablet = 600 mg, By Mouth, 2 times a day, # 90 tablet, 5 Refills, Maintenance, 09/20/24 9:44:00 AMEDT, Tablet, Partial fill upon patient request if the prescription is for a schedule II opioid drug. Start Date: 09/20/24 Status: Ordered Medication Dispense Status: Completed Quantity: 90.0 Unit: tablet Total Allowed Fills: 1 Fills Dispensed: 0 levothyroxine 100 mcg (0.1 mg)/5 mL oral solution = 125 mcg, By Mouth, Daily, on an empty stomach, # 100 mL, 0 Refills, Maintenance, 03/24/24 7:03:00AM EST, Solution, Partial fill upon patient request if the prescription is for a schedule II opioiddrug. Start Date: 03/24/24 Status: Ordered Medication Dispense Status: Completed Quantity: 100.0 Unit: mL Total Allowed Fills: 1 Fills Dispensed: 0 Lipitor 80 mg oral tablet 1 tablet = 80 mg, By Mouth, Daily at bedtime, # 30 tablet, 0 Refills, Maintenance, 05/04/22 3:10:00PM EST, Tablet, [facility], Partial fill upon patient request if the prescription is for a schedule II opioid drug., 162, cm, 05/02/22 8:11:00 EST, Height, 64, kg, 05/01/22 18:00:00 EST, Dry Weight Start Date: 05/04/22 Status: Ordered Medication Dispense Status: Completed Quantity: 30.0 Unit: tablet Total Allowed Fills: 1 Fills Dispensed: 0 metoprolol succinate 50 mg oral capsule, extended release 1 capsule = 50 mg, By Mouth, Daily, # 90 capsule, 0 Refills, Maintenance, 09/20/24 9:46:00 AM EDT, ER Capsule, Partial fill upon patient request if the prescription is for a schedule II opioid drug. Start Date: 09/20/24 Status: Ordered Medication Dispense Status: Completed Quantity: 90.0 Unit: capsule Total Allowed Fills: 1 Fills Dispensed: 0 nicotine 14 mg/24 hr transdermal film, extended release = 14 mg, Topically, Daily, for 28 days, # 28 patch, 0 Refills, Acute 04/02/25 2:18:00 PM EST, 03/05/25 2:18:00 PM EDT, Patch, [facility] 3, Partial fill upon patient request if the prescription is for a schedule II opioid drug., 14 mg Topically Daily,x28 days, 163, cm, 03/05/25 8:47:00 EDT, Height, 57.7, kg, 03/03/25 18:56:00 EDT, Dry Weight Start Date: 03/05/25 Stop Date: 04/02/25 Status: Ordered Medication Dispense Status: Completed Quantity: 28.0 Unit: patch Total Allowed Fills: 1 Fills Dispensed: 0 Plavix 75 mg oral tablet 75 mg, 1, tablet, By Mouth, Daily, Refills 5, Maintenance, 08/07/21 10:59:00 PM EDT, ; Start Date: 08/07/21 Status: Ordered Medication Dispense Status: Completed Total Allowed Fills: 1 Fills Dispensed: 0 pramipexole 0.125 mg oral tablet 2 tablet = 0.25 mg, By Mouth, Daily at bedtime, Maintenance, 08/08/21 2:27:00 PM EDT, Tablet, ; Start Date: 08/08/21 Status: Ordered Medication Dispense Status: Completed Total Allowed Fills: 1 Fills Dispensed: 0 Protonix 40 mg oral delayed release tablet = 40 mg, By Mouth, 2 times a day, # 60 capsule, 0 Refills, Maintenance, 01/12/24 7:42:00 AM EDT, EC Tablet, 163, cm, 01/12/24 7:34:00 EDT, Height, 57.9, kg, 01/10/24 3:07:00 EDT, Dry Weight Start Date: 01/12/24 Stop Date: 02/11/24 Status: Ordered Medication Dispense Status: Completed Quantity: 60.0 Unit: capsule Total Allowed Fills: 1 Fills Dispensed: 0 sertraline 100 mg oral tablet 1 tablet = 100 mg, By Mouth, Daily, # 30 tablet, 0 Refills, Maintenance, 09/20/24 9:43:00 AM EDT, Tablet, Partial fill upon patient request if the prescription is for a schedule II opioid drug. Start Date: 09/20/24 Status: Ordered Medication Dispense Status: Completed Quantity: 30.0 Unit: tablet Total Allowed Fills: 1 Fills Dispensed: 0 Vitamin B12 1000 mcg oral tablet 1 tablet = 1,000 mcg, By Mouth, Daily, # 30 tablet, 0 Refills, Maintenance, 09/20/24 9:44:00 AM EDT,Tablet, Partial fill upon patient request if the prescription is for a schedule II opioid drug. Start Date: 09/20/24 Status: Ordered Medication Dispense Status: Completed Quantity: 30.0 Unit: tablet Total Allowed Fills: 1 Fills Dispensed: 0 Mental Status Mental Status Assessment Assessment Assessment Component Result Effecti ve Date Patient Health Questionnaire 2 item (PHQ-2) total score [Reported] 0 03/03/25 Problem List Condition Confirmation Course Effective Dates Status H ealth Status Informant CHF exacerbation Confirmed Active Acute hypoxic respiratory failure Confirmed Active Bilateral carotid artery stenosis Confirmed Active Chronic back pain Confirmed Active CKD (chronic kidney disease) Confirmed Active COPD (chronic obstructive pulmonary disease) Confirmed Active GERD (gastroesophageal reflux disease) Confirmed Active Hyperkalemia Confirmed Active HLD (hyperlipidemia) Confirmed Active HTN (hypertension) Confirmed Active Hypothyroidism Confirmed Active Moderate aortic valve stenosis Confirmed Active Osteoarthritis Confirmed Active Peripheral vascular disease Confirmed Active Restless leg syndrome Confirmed Active Tachycardia-bradycard ia syndrome Confirmed Active Type 2 diabetes mellitus Confirmed Active Urinary incontinence Confirmed Active Vital Signs Most recent to oldest [Reference Range]: 1 2 3 Height 163 cm (03/06/25 7:49 AM) 163 cm (03/06/25 3:43 AM) 163 cm (03/05/25 2:29 PM) Weight 57.5 kg (03/05/25 9:00 AM) 57.5 kg (03/05/25 5:00 AM) 57.7 kg (03/04/25 9:45 AM) Oxygen Saturation [94-100 %] 97 % (03/06/25 7:49 AM) 100 % (03/06/25 3:43 AM) 97 % (03/05/25 7:52 PM) Pulse Rate [55-90 bpm] 66 bpm (03/06/25 7:49 AM) 66 bpm (03/06/25 3:43 AM) 71 bpm (03/05/25 7:52 PM) Body Mass Index [18.5-24.99 kg/m2] 21.72 kg/m2 (03/03/25 12:42 PM) Blood Pressure [90-138/55-84 mm Hg] 109/78mm Hg (03/06/25 7:49 AM) 125/37mm Hg (03/06/25 3:43 AM) 121/42mm Hg (03/05/25 7:52 PM) Respiratory Rate [16-30 br/min] 16 br/min (03/06/25 8:03 AM) 18 br/min (03/06/25 7:49 AM) 18 br/min (03/06/25 3:43 AM) Temperature [96.8-100.4 DegF] 97.4 DegF (03/06/25 7:49 AM) 98.4 DegF (03/06/25 3:43 AM) 97.2 DegF (03/05/25 7:52 PM) Liters per Minute 2 L/min (03/05/25 7:52 PM) 2 L/min (03/05/25 2:00 AM) 2 L/min (03/04/25 7:00 PM) Mode of Delivery (Oxygen) Room air (03/06/25 7:49 AM) Nasal cannula (03/06/25 3:43 AM) Nasal cannula (03/05/25 7:52 PM) Blood pressure sites Arm, right (03/06/25 7:49 AM) Arm, left (03/06/25 3:43 AM) Arm, left (03/05/25 7:52 PM) Temperature Route Oral (03/06/25 7:49 AM) Oral (03/06/25 3:43 AM) Oral (03/05/25 7:52 PM) Dry Weight 57.7 kg (03/03/25 12:42 PM) 57.7 kg (03/03/25 10:16 AM) Dry Weight Obtained Via Standing scale (03/03/25 10:16 AM) Social History Social History Type Response Sexual Sexually involved in last 6 months: No. Smoking Status 10 or more cigarette s (1/2 pack or more)/day in last 30 days; Interested in cessation: Yes entered on: 05/01/22 Sex Sex Representation Female (finding) Procedure * Event Display: Cardiac Rhythm Strips Authored Date: * Event Display: Hemodynamic Procedure Report Authored Date: * Event Display: Hemodynamic Procedure Report Authored Date: Consult note * Lazaro RASCON, Shahzad Jones: PERFORM Event Display: Consult Authored Date: [id number] Patient: ??LEBRON MUKHERJEE ? Age:??79 Years?Sex:??Female?:??1945?LOC:??[facility]?? Chief Complaint Chest pain and abnormal cardiac catheterization demonstrating severe distal left main and proximal left circumflex coronary artery disease. Reason for Consultation Evaluation for coronary artery bypass grafting (CABG) in the setting of severe distal left main andproximal left circumflex coronary artery disease, preserved left ventricular systolic function, andporcelain ascending aorta. Consideration also given to the presence of [id number]-[id number] aortic stenosis and assessment of overall surgical risk and operative feasibility. History of Present Illness Ms. Lebron Mukherjee is an 79-year-old woman with a history of coronary artery disease, chronic heart failure with preserved ejection fraction, hypertension, hyperlipidemia, COPD, chronic kidney disease stage IV, and moderate aortic valve stenosis who underwent cardiac catheterization today??demonstrating severe distal left main and proximal left circumflex stenosis. ?? She was hospitalized in late November 2024 for acute hypoxic respiratory failure due to an acute on chronic CHF exacerbation, during which she required BiPAP and IV diuresis. Since that admission, she has been maintained on intermittent home oxygen and oral diuretics. She reports that over the past several months she has experienced intermittent substernal chest discomfort occurring both at rest and with exertion. She denies syncope or palpitations. She denies orthopnea or paroxysmal nocturnal dyspnea. She describes her activity level as relatively sedentary but remains independent with activities of daily living. ?? Her most recent echocardiogram that I have available for review (03/24/24) showed normal LV size and preserved systolic function (LVEF 55???65%) with rimt-et-gysgmzqq aortic stenosis (Vmax 2.8 m/s, mean gradient 22 mmHg, DI 0.32) and mild mitral stenosis (mean gradient 5 mmHg). 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 ?? She is currently hemodynamically stable and in no acute distress. Given her coronary anatomy, she was referred for surgical evaluation of possible coronary artery bypass grafting (CABG). Review of Systems Constitutional: Denies fever, chills, or unintentional weight loss. Cardiac: Reports intermittent chest discomfort both at rest and with exertion. Denies palpitations,orthopnea, or paroxysmal nocturnal dyspnea. No presyncope or syncope. Respiratory: Denies resting shortness of breath, cough, or wheezing. Notes mild exertional dyspnea consistent with baseline COPD. Gastrointestinal: Denies nausea, vomiting, abdominal pain, melena, or hematochezia. Genitourinary: Denies dysuria or hematuria. Neurologic: Denies focal weakness, dizziness, or new visual changes. Musculoskeletal: Denies new joint pain or swelling. Endocrine: Denies heat or cold intolerance. Hematologic: No known bleeding or easy bruising. Psychiatric: Denies depression or anxiety symptoms beyond baseline. Physical Exam Vitals & Measurements T:??97.3?F?? HR:??64??(Monitored)?? RR:??25?? BP:??149/87?? SpO2:??97%?? General: Frail appearing, elderly female, alert, oriented, and in no acute distress. Conversant andcooperative. HEENT: Normocephalic, atraumatic. Neck: Supple without jugular venous distention. Trachea midline. Cardiovascular: Regular rhythm, normal rate.?? Respiratory:?? Non-labored respirations on room air. Abdomen: nondistended. Extremities: No cyanosis or clubbing. Trace bilateral lower extremity edema. Neurologic: Alert and oriented ??3. No focal deficits. Speech fluent. Skin: Warm, dry, and intact. No rash or ecchymosis. Psychiatric: Appropriate affect and cooperative demeanor. Assessment/Plan Ms. Lebron Mukherjee is an 79-year-old woman with severe distal left main and proximal circumflex coronary artery disease in the setting of preserved LV systolic function, mbkg-la-wqksehnq aortic stenosis, COPD, and CKD stage IV.??Given her age, comorbidities, and the anatomic constraints imposed by??a porcelain aorta, she represents a very??high-risk surgical candidate. Her calculated STS risk of mortality is 12.8% for isolated CABG and 14.1% for combined AVR/CABG, but these estimates likely understate her true risk, as they do not fully account for her frailty and??the technical hazards of severe aortic calcification. ?? I recommend proceeding with Heart Team discussion for consideration of high- risk PCI to the leftmain and circumflex, supported by advanced hemodynamic support if needed. From a surgical standpoint, no operative intervention is advised at this time. She should continue optimal medical therapy, including dual antiplatelet therapy, high-intensity statin, and diuretic management for heart failure, along with aggressive risk factor modification and smoking cessation. Total Time Spent ??75 minutes, including detailed review of imaging and hemodynamic data, multidisciplinary discussion, and counseling with the patient and team regarding operative candidacy, risk stratification, andalternative management options. Problem List/Past Medical History Ongoing Acute hypoxic respiratory failure Bilateral carotid artery stenosis CHF exacerbation Chronic back pain CKD (chronic kidney disease) COPD (chronic obstructive pulmonary disease) GERD (gastroesophageal reflux disease) HLD (hyperlipidemia) HTN (hypertension) Hyperkalemia Hypothyroidism Moderate aortic valve stenosis Osteoarthritis Peripheral vascular disease Restless leg syndrome Tachycardia-bradycardia syndrome Type 2 diabetes mellitus Urinary incontinence Procedure/Surgical History No qualifying data available. Medications Inpatient Acetaminophen(Acetaminophen Tablet), 650 mg, By Mouth, Every 4 hours, PRN Aspirin(Aspirin Chew Tablet), 324 mg, Chew, Once, PRN Melatonin(Melatonin Tablet), 3 mg, By Mouth, Daily at bedtime, PRN Polyethylene Glycol 3350(MiraLax Powder), 17 Gm= 1 pack/packet, By Mouth, Daily, PRN Senna(Senna Tablet), 8.6 mg= 1 tablet, By Mouth, 2 times a day, PRN Sodium Chloride(NaCL 0.9% Flush), 3 mL, IV Push, Every 8 hours Sodium Chloride(NaCL 0.9% Flush), 3 mL, IV Push, Every 8 hours, PRN Sodium Chloride(NaCL 0.9% Flush), 3 mL, IV Push, Every 8 hours Sodium Chloride(NaCL 0.9% Flush), 3 mL, IV Push, Every 8 hours, PRN Sodium Chloride 0.9% 1000 mL [5 mL/kg/hr](Sodium Chloride 0.9% Normalized 1000 mL [5 mL/kg/hr]), 1000 mL, IV Infusion Home Albuterol(albuterol 0.083% inhalation solution), 2.5 mg= 3 mL, Inhalation, Every 6 hours, PRN Amlodipine(amLODIPine 5 mg oral tablet), 5 mg= 1 tablet, By Mouth, 2 times a day Aspirin(aspirin 81 mg oral capsule), 81 mg= 1 capsule, By Mouth, Daily Atorvastatin(Lipitor 80 mg oral tablet), 80 mg= 1 tablet, By Mouth, Daily at bedtime Cetirizine(cetirizine 10 mg oral tablet), 10 mg= 1 tablet, By Mouth, Daily Clopidogrel(Plavix 75 mg oral tablet), 75 mg= 1 tablet, By Mouth, Daily Cyanocobalamin(Vitamin B12 1000 mcg oral tablet), 1000 mcg= 1 tablet, By Mouth, Daily Ezetimibe(ezetimibe 10 mg oral tablet), 10 mg= 1 tablet, By Mouth, Daily Famotidine(famotidine 20 mg oral tablet), 20 mg, By Mouth, Daily Ferrous Sulfate(ferrous sulfate 325 mg oral tablet) Furosemide(furosemide 20 mg oral tablet), 20 mg= 1 tablet, By Mouth, Daily Gabapentin(gabapentin 600 mg oral tablet), 600 mg= 1 tablet, By Mouth, 2 times a day Levothyroxine(levothyroxine 100 mcg (0.1 mg)/5 mL oral solution), 150 mcg, By Mouth, Daily Metoprolol(metoprolol succinate 50 mg oral capsule, extended release), 50 mg= 1 capsule, By Mouth, Daily Pantoprazole(Protonix 40 mg oral delayed release tablet), 40 mg, By Mouth, 2 times a day Pramipexole(pramipexole 0.125 mg oral tablet), 0.25 mg= 2 tablet, By Mouth, Daily at bedtime Sertraline(sertraline 100 mg oral tablet), 100 mg= 1 tablet, By Mouth, Daily Allergies Cordran Tape Milk Products Motrin Percocet??Hives Wheat statins Social History Alcohol Frequency:1-2 times per year Type:Wine Electronic Cigarette/Vaping E-Cigarette Use:Never Employment/School Status:Retired Exercise Self assessment:Fair condition Home/Environment Living situation:Home/Independent Lives with:Children Nutrition/Health Diet: (Don't list allergies here)Regular Sexual Sexually involved in last 6 months:No Substance Abuse Use:Current Type:Marijuana Tobacco Use:10 or more cigarettes (1/2 pack or more)/day in last 30 days Interested in cessation:Yes Family History Alcohol abuse: Father. Cancer: Mother and Brother. Cardiovascular disease: Father. Diabetes mellitus: Mother. Diagnostic Results Cardiac Catheterization (03/03/25): ?? Findings: Severe distal left main stenosis extending into the bifurcation, and severe proximal leftcircumflex disease. ?? Hemodynamics: LVEDP: 12 Aortic Gradient: - Mean: 26 mmHg - Peak Instantaneous: 43 mmHg - Ehhl-ij-Njrm: 20 mmHg Consistent with moderate aortic stenosis? Conclusion: Severe distal left main and proximal LCX coronary artery disease consistent with left main equivalent physiology. ?? Echocardiogram (03/24/24): ?? LVEF: 55???65% with normal LV size and wall thickness. ?? Aortic Valve: Yfju-mo-wcvhhfot calcific aortic stenosis (Vmax 2.8 m/s, mean gradient 22 mmHg, DI 0.32). ?? Mitral Valve: Mild mitral stenosis (mean gradient 5 mmHg) with trace regurgitation; heavy annular calcification. ?? Atria: Duhtpbov-gb-ertfng left atrial enlargement; right atrium dilated. ?? Right Ventricle: Poorly visualized but systolic function appears preserved. ?? IVC: Dilated with poor inspiratory collapse, suggesting elevated right atrial pressure. ?? Pericardium: No pericardial effusion. ?? CT Chest (03/24/24): ?? Aorta: Severe circumferential calcification of the ascending aorta (???porcelain aorta?? ) with diffuse atherosclerosis of the great vessels. No aneurysm. ?? Heart: Severe coronary artery calcification. ?? Lungs: Mild emphysema, interlobular septal thickening, bibasilar atelectasis, and moderate right/small left pleural effusions. ?? 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 Admission evaluation note * Robinson Almeida: PERFORM, MODIFY, MODIFY Event Display: Admission Note Authored Date: [id number] Patient: ??LEBRON MUKHERJEE ? Age:??79 Years?Sex:??Female?:??1945?LOC:??[facility]?? Chief Complaint VELAZQUEZ History of Present Illness 79-year-old female with a history of progressive exertional shortness of breath over the past several months. She recently underwent an outpatient stress test which she failed, prompting referral forelective left heart catheterization today. Per discussion with the cardiac surgeon at bedside, catheterization revealed severe narrowing of the left circumflex artery (exact degree of stenosis not yet available in the formal cath report). The patient is reportedly not a surgical candidate. The primary cardiology team is currently evaluating for possible PCI/stenting. She is chest pain-free at present and denies dyspnea, palpitations, lightheadedness, or other acute symptoms. Review of Systems CONSTITUTIONAL: ??Denies any fever, chills, changes to weight or fatigue. EYES: Denies any changes to vision, burning or diplopia. HEENT: Denies any GRULLON, nasal d/c, nose bleeds, changes to voice, vertigo, photophobia, hearing changes or dental problems. CV: Denies any CP, orthopnea, PND, edema, palpitations. PULM: See HPI ABD: Denies any abdominal pain, N/V/D, heartburn, PRBPR, melena, or changes to bowel habits. : Denies any changes to frequency. ??Denies dysuria, urgency, straining, hematuria, incontinence.? MS: Denies any joint or muscle pain, falls or changes to gait. NEURO: Denies any weakness, numbness, changes to speech confusion or memory loss. SKIN: Denies any rashes or lesions. ?? PSYCH: Denies any depression or anxiety. SIGECAPS negative. FUNCTIONAL: At baseline the patient is able to??ambulate independently Physical Exam Vitals & Measurements T:??97.3?F?? HR:??64??(Monitored)?? RR:??25?? BP:??149/87?? SpO2:??97%?? General:??79 year old female lies in bed comfortably in no acute distress HEENT: NCAT, moist oral mucosa, good dentition, oropharynx without erythema Card: RRR no murmur, non displaced PMI, no JVD, 2+ radial pulse B/L Resp: CTA B/L, no wheezing, rales, ronchi Abdomen: soft and non tender, bowel sounds WNL Extremities: no pitted edema B/L lower extremities Skin: Without rashes or lesions, good turgor Hem/Lymph: without bruising or lymphadenopathy Psych: appropriate affect Neuro: A&OX3, no focal motor deficits Assessment/Plan Severe left circumflex coronary artery disease, not a surgical candidate ?? Stable, currently asymptomatic post-catheterization ?? History of exertional dyspnea, likely anginal equivalent ?? Hyperkalemia, potassium 5.9??received Lokelma, no EKG changes ?? Plan: Continue telemetry monitoring Follow up on formal cath report Continue home cardiac medications (beta-elizabeth, statin, aspirin) unless otherwise directed by cardiology Monitor for recurrent chest pain, shortness of breath, or hemodynamic instability Obtain cardiology final recommendations regarding PCI vs. medical management Routine labs in the morning (BMP, CBC) to monitor for post-procedure complications Repeat potassium in the morning ?? Chronic medical condition Hypertension: Continue amlodipine CHF: Continue Lasix Neuropathy: Continue gabapentin Hypothyroidism: Continue??levothyroxine Restless legs: Continue pramipexole GERD: Continue pantoprazole Anxiety depression: Continue sertraline COPD:??As needed albuterol updraft while inpatient ?? CODE STATUS: DNR/DNI, discussed at bedside Problem List/Past Medical History Ongoing Acute hypoxic respiratory failure Bilateral carotid artery stenosis CHF exacerbation Chronic back pain CKD (chronic kidney disease) COPD (chronic obstructive pulmonary disease) GERD (gastroesophageal reflux disease) HLD (hyperlipidemia) HTN (hypertension) Hyperkalemia Hypothyroidism Moderate aortic valve stenosis Osteoarthritis Peripheral vascular disease Restless leg syndrome Tachycardia-bradycardia syndrome Type 2 diabetes mellitus Urinary incontinence Procedure/Surgical History No qualifying data available. Medications Inpatient Acetaminophen(Acetaminophen Tablet), 650 mg, By Mouth, Every 4 hours, PRN Amlodipine(amLODIPine 5 mg oral tablet), 5 mg, By Mouth, 2 times a day Amlodipine(amLODIPine 5 mg oral tablet), 5 mg, By Mouth, Once Aspirin(Aspirin Chew Tablet), 324 mg, Chew, Once, PRN Aspirin(aspirin 81 mg oral tablet, chewable), 81 mg, By Mouth, Daily Atorvastatin(Lipitor 80 mg oral tablet), 80 mg, By Mouth, Daily at bedtime Clopidogrel(Plavix 75 mg oral tablet), 75 mg, By Mouth, Daily Furosemide(furosemide 20 mg oral tablet), 20 mg, By Mouth, Daily Gabapentin(gabapentin 300 mg oral capsule), 600 mg, By Mouth, 2 times a day Levothyroxine(Synthroid 0.1 mg oral tablet), 100 mcg, By Mouth, Daily Melatonin(Melatonin Tablet), 3 mg, By Mouth, Daily at bedtime, PRN Metoprolol(metoprolol 50 mg oral tablet, extended release), 50 mg, By Mouth, Daily Pantoprazole(Protonix 40 mg oral delayed release tablet), 40 mg, By Mouth, 2 times a day Polyethylene Glycol 3350(MiraLax Powder), 17 Gm= 1 pack/packet, By Mouth, Daily, PRN Pramipexole(pramipexole 0.25 mg oral tablet), 0.25 mg, By Mouth, Daily at bedtime Senna(Senna Tablet), 8.6 mg= 1 tablet, By Mouth, 2 times a day, PRN Sertraline(sertraline 50 mg oral tablet), 100 mg, By Mouth, Daily Sodium Chloride(NaCL 0.9% Flush), 3 mL, IV Push, Every 8 hours Sodium Chloride(NaCL 0.9% Flush), 3 mL, IV Push, Every 8 hours, PRN Sodium Chloride(NaCL 0.9% Flush), 3 mL, IV Push, Every 8 hours Sodium Chloride(NaCL 0.9% Flush), 3 mL, IV Push, Every 8 hours, PRN Sodium Chloride 0.9% 1000 mL [5 mL/kg/hr](Sodium Chloride 0.9% Normalized 1000 mL [5 mL/kg/hr]), 1000 mL, IV Infusion Home Albuterol(albuterol 0.083% inhalation solution), 2.5 mg= 3 mL, Inhalation, Every 6 hours, PRN Amlodipine(amLODIPine 5 mg oral tablet), 5 mg= 1 tablet, By Mouth, 2 times a day Aspirin(aspirin 81 mg oral capsule), 81 mg= 1 capsule, By Mouth, Daily Atorvastatin(Lipitor 80 mg oral tablet), 80 mg= 1 tablet, By Mouth, Daily at bedtime Cetirizine(cetirizine 10 mg oral tablet), 10 mg= 1 tablet, By Mouth, Daily Clopidogrel(Plavix 75 mg oral tablet), 75 mg= 1 tablet, By Mouth, Daily Cyanocobalamin(Vitamin B12 1000 mcg oral tablet), 1000 mcg= 1 tablet, By Mouth, Daily Ezetimibe(ezetimibe 10 mg oral tablet), 10 mg= 1 tablet, By Mouth, Daily Famotidine(famotidine 20 mg oral tablet), 20 mg, By Mouth, Daily Ferrous Sulfate(ferrous sulfate 325 mg oral tablet) Furosemide(furosemide 20 mg oral tablet), 20 mg= 1 tablet, By Mouth, Daily Gabapentin(gabapentin 600 mg oral tablet), 600 mg= 1 tablet, By Mouth, 2 times a day Levothyroxine(levothyroxine 100 mcg (0.1 mg)/5 mL oral solution), 150 mcg, By Mouth, Daily Metoprolol(metoprolol succinate 50 mg oral capsule, extended release), 50 mg= 1 capsule, By Mouth, Daily Pantoprazole(Protonix 40 mg oral delayed release tablet), 40 mg, By Mouth, 2 times a day Pramipexole(pramipexole 0.125 mg oral tablet), 0.25 mg= 2 tablet, By Mouth, Daily at bedtime Sertraline(sertraline 100 mg oral tablet), 100 mg= 1 tablet, By Mouth, Daily Allergies Cordran Tape Milk Products Motrin Percocet??Hives Wheat statins Social History Alcohol Frequency:1-2 times per year Type:Wine Electronic Cigarette/Vaping E-Cigarette Use:Never Employment/School Status:Retired Exercise Self assessment:Fair condition Home/Environment Living situation:Home/Independent Lives with:Children Nutrition/Health Diet: (Don't list allergies here)Regular Sexual Sexually involved in last 6 months:No Substance Abuse Use:Current Type:Marijuana Tobacco Use:10 or more cigarettes (1/2 pack or more)/day in last 30 days Interested in cessation:Yes Family History Alcohol abuse: Father. Cancer: Mother and Brother. Cardiovascular disease: Father. Diabetes mellitus: Mother. Immunizations Vaccine Date Status influenza virus vaccine, inactivated 02/14/2022 Recorded tetanus/diphtheria/pertussis, acel(Tdap) 11/22/2021 Recorded influenza virus vaccine, inactivated 03/11/2014 Recorded influenza virus vaccine, inactivated 01/20/2013 Recorded influenza virus vaccine, inactivated 01/16/2012 Recorded influenza virus vaccine, inactivated 02/04/2011 Recorded influenza virus vaccine, inactivated 02/15/2010 Recorded pneumococcal 23-valent vaccine 09/04/2009 Recorded Zoster Vaccine Live 04/06/2009 Recorded tetanus/diphtheria/pertussis, acel(Tdap) 09/21/2008 Recorded influenza virus vaccine, inactivated 02/23/2008 Recorded influenza virus vaccine, inactivated 03/19/2007 Recorded influenza virus vaccine, inactivated 02/25/2006 Recorded influenza virus vaccine, inactivated 03/01/2005 Recorded pneumococcal 23-valent vaccine 06/04/2002 Recorded Electronically Signed on 03/03/25 02:23 PM Robinson Almeida Electronically Signed on 03/03/25 02:27 PM Robinson Almeida Electronically Signed on 03/03/25 02:28 PM Robinson Almeida Note * Benjamin Ortega RN: PERFORM Event Display: Discharge/Transfer Note Hospital Authored Date: [id number] Nursing Discharge Note Entered On: 03/06/2025 12:06 EST Performed On: 03/06/2025 12:05 EST by Benjamin Ortega RN Nursing Discharge Note 2 Discharge Time : 03/06/2025 12:05 EST Discharge Level of Care at Discharge : Home/Intermediate/Foster Care Patient Left Unit Via : Wheelchair Patient Accompanied Off Unit with : Other: Transportation team DC Instructions Provided & Signed by Pt : Yes Patient Understands D/C Instructions : Yes Patient Instructions Discharge Signed : Yes Discharge Comments : Pt IVs and heart monitor taken off. Discharge instructions given and understood. Pt brought down in wheelchair by transportation team. Did Pt have Specialty Bed or Wound Vac : No Benjamin Ortega RN - 03/06/2025 12:05 EST Electronically Signed on 03/06/25 12:05 PM Benjamin Ortega RN * Pio Castano DO: PERFORM Event Display: Discharge/Transfer Note Hospital Authored Date: Patient: ??LEBRON MUKHERJEE ? Age:??79 Years?Sex:??Female?:??1945?LOC:??[facility]?? Patient Information Discharge Location: Primary Care Physician: Jaylen Taylor NP Admit Date/Time: 03/03/2025 09:38 Discharge Disposition Discharge Disposition: Home: No Services Discharge Diagnosis Coronary artery disease (I25.10) Hypertension (I10) CHF (congestive heart failure) (I50.9) Neuropathy (G62.9) Hypothyroid (E03.9) RLS (restless legs syndrome) (G25.81) COPD without exacerbation (J44.9) COPD exacerbation (J44.1) Anxiety and depression (F41.9) Chronic GERD (K21.9) _ Discharge Medications Albuterol (albuterol 0.083% inhalation solution)??3 Milliliter 2.5 Milligram Inhalation Every 6 hours as needed for wheezing Amlodipine (amLODIPine 5 mg oral tablet)??5 Milligram 1 tablet By Mouth 2 times a day for 30 Days Aspirin (aspirin 81 mg oral capsule)??1 capsule 81 Milligram By Mouth Daily Atorvastatin (Lipitor 80 mg oral tablet)??1 tab(s) 80 Milligram By Mouth Daily at bedtime Cetirizine (cetirizine 10 mg oral tablet)??1 tab(s) 10 Milligram By Mouth Daily Clopidogrel (Plavix 75 mg oral tablet)??75 Milligram 1 tablet By Mouth Daily Cyanocobalamin (Vitamin B12 1000 mcg oral tablet)??1 tab(s) 1,000 Microgram By Mouth Daily Ezetimibe (ezetimibe 10 mg oral tablet)??1 tab(s) 10 Milligram By Mouth Daily Famotidine (famotidine 20 mg oral tablet)??20 Milligram By Mouth Daily for 30 Days Ferrous Sulfate (ferrous sulfate 325 mg oral tablet)??TAKE 1 TABLET BY MOUTH 1 TIME EACH DAY WITH BREAKFAST. Furosemide (furosemide 20 mg oral tablet)??20 Milligram 1 tablet By Mouth Daily for 30 Days Gabapentin (gabapentin 600 mg oral tablet)??1 tab(s) 600 Milligram By Mouth 2 times a day Levothyroxine (levothyroxine 100 mcg (0.1 mg)/5 mL oral solution)??125 Microgram By Mouth Daily on an empty stomach Metoprolol (metoprolol succinate 50 mg oral capsule, extended release)??1 capsule 50 Milligram By Mouth Daily Nicotine (nicotine 14 mg/24 hr transdermal film, extended release)??14 Milligram Topically Daily for 28 Days Pantoprazole (Protonix 40 mg oral delayed release tablet)??40 Milligram By Mouth 2 times a day for 30 Days Pramipexole (pramipexole 0.125 mg oral tablet)??2 tab(s) 0.25 Milligram By Mouth Daily at bedtime Sertraline (sertraline 100 mg oral tablet)??1 tab(s) 100 Milligram By Mouth Daily ? Quality Measures Tobacco Use Treatment:?Cessation Medication Prescribed on Discharge:??Tobacco Cessation Medication Prescribed ? Discharge Medications New Nicotine (nicotine 14 mg/24 hr transdermal film, extended release)14 Milligram Topically Daily for 28 Days. Refills: 0. Changed Levothyroxine (levothyroxine 100 mcg (0.1 mg)/5 mL oral solution)125 Microgram Oral Daily. on an empty stomach. Unchanged Albuterol (albuterol 0.083% inhalation solution)3 Milliliter Inhalation every 6 hours as needed forwheezing. Amlodipine (amLODIPine 5 mg oral tablet)1 tab(s) Oral twice a day for 30 Days. Refills: 0. Aspirin (aspirin 81 mg oral capsule)1 capsule Oral Daily. Atorvastatin (Lipitor 80 mg oral tablet)1 tab(s) Oral Daily at Bedtime. Refills: 0. Cetirizine (cetirizine 10 mg oral tablet)1 tab(s) Oral Daily. Clopidogrel (Plavix 75 mg oral tablet)1 tab(s) Oral Daily. Cyanocobalamin (Vitamin B12 1000 mcg oral tablet)1 tab(s) Oral Daily. Ezetimibe (ezetimibe 10 mg oral tablet)1 tab(s) Oral Daily. Famotidine (famotidine 20 mg oral tablet)20 Milligram Oral Daily for 30 Days. Refills: 0. Ferrous Sulfate (ferrous sulfate 325 mg oral tablet)TAKE 1 TABLET BY MOUTH 1 TIME EACH DAY WITH BREAKFAST.. Furosemide (furosemide 20 mg oral tablet)1 tab(s) Oral Daily for 30 Days. Refills: 0. Gabapentin (gabapentin 600 mg oral tablet)1 tab(s) Oral twice a day. Metoprolol (metoprolol succinate 50 mg oral capsule, extended release)1 capsule Oral Daily. Pantoprazole (Protonix 40 mg oral delayed release tablet)40 Milligram Oral twice a day for 30 Days.Refills: 0. Pramipexole (pramipexole 0.125 mg oral tablet)2 tab(s) Oral Daily at Bedtime. Sertraline (sertraline 100 mg oral tablet)1 tab(s) Oral Daily. Allergies Allergies ?(Active and Proposed Allergies Only) Wheat? (Severity: Unknown severity, Onset: Unknown) Milk Products? (Severity: Unknown severity, Onset: Unknown) Percocet? (Severity: Unknown severity, Onset: Unknown) ?Reactions: Hives statins? (Severity: Unknown severity, Onset: Unknown) Cordran Tape? (Severity: Unknown severity, Onset: Unknown) Motrin? (Severity: Unknown severity, Onset: Unknown) ? Hospital Course Lebron is an 79-year-old woman with a past medical history significant for congestive heart failure, hypertension, hypothyroidism, COPD, CKD, type 2 diabetes and hyperlipidemia who presented to the hospital in the setting of several months of exertional shortness of breath.?? Patient underwent stresstest outpatient which she failed prompting referral for elective left heart catheterization.?? Angiography had revealed severe distal left main stenosis however patient determined not to be a surgical candidate and ultimately was brought in for high risk PCI.?? Drug-eluting stent placed to left circumflex as well as left main into the LAD with patient tolerating procedure.?? Patient is now chest pain-free postoperatively and hemodynamically stable and ultimately ready for discharge from the hospital for outpatient follow-up with cardiology.? Coronary artery disease (I25.10):??Patient noted to have stenosis of left circumflex as well as left main into LAD that status post drug-eluting stent placed on 03/04.??Patient tolerated procedure well and is now on dual antiplatelet therapy with aspirin and Plavix and will need to complete cardiac rehab as well as continue aggressively adjusting secondary risk to prevent worsening of coronary disease. ??? Continue aspirin and Plavix ??? Continue home metoprolol ??? Continue atorvastatin ??? Outpatient follow-up with cardiology ??? Cardiac rehab ?? Hypertension (I10):??Amlodipine CHF (congestive heart failure) (I50.9):?Continue home Lasix Neuropathy (G62.9):??Gabapentin Hypothyroid (E03.9):??Levothyroxine RLS (restless legs syndrome) (G25.81):??Continue pramipexole COPD without exacerbation (J44.9):??Continue home bronchodilator Anxiety and depression (F41.9):??Sertraline Chronic GERD (K21.9):?Pantoprazole Objective Vital Signs?? Temperature: 97.4 DegF (03/06/25 07:49:00) Temperature Route: Oral (03/06/25 07:49:00) Pulse Rate: 66 bpm (03/06/25 07:49:00) Respiratory Rate: 16 br/min (03/06/25 08:03:00) Systolic Blood Pressure: 109 mm Hg (03/06/25 07:49:00) Diastolic Blood Pressure: 78 mm Hg (03/06/25 07:49:00) Blood pressure sites: Arm, right (03/06/25 07:49:00) Mean Arterial Pressure: 88 mm Hg (03/06/25 07:49:00) Pulse Pressure: 31 mm Hg (03/06/25 07:49:00) Oxygen Saturation: 97 % (03/06/25 07:49:00) Liters per Minute: 2 L/min (03/05/25 19:52:00) Mode of Delivery (Oxygen): Room air (03/06/25 07:49:00) Early Warning Score: 3 (03/06/25 08:09:06) ? . Physical Exam General Appearance: NAD. Eyes:??No scleral icterus. ENT: ??MM moist. Cardiovascular: RRR S1 and S2 Respiratory: ??Breath sounds clear GI: Soft. Nontender and nondistended. MS: ??No edema or erythema in the lower extremities.?? Neuro: ??No slurred speech. Moving upper and lower extremities spontaneously. Psych: Alert and oriented x3.?? Consultants Cardiology Patient Education Titles [employer] [facility] Patient Education - Cardiac Rehabilitation?? Follow-Up Appointments Added Follow Up ?Time Frame ?Comments [facility] [phone]?1 week [facility]: Cardiac Rehab?cardiac rehab exercise program. We will call you to set up appointment! Jaylen Taylor Post Discharge Care Discharge Prescriptions ?ePrescribed, 03/05/25 14:21:00 EDT ?Order Comment:?? Results Discharge Labs BLOOD COUNT & DIFF WBC 6.5 k/mm3 ()?? 03/04/2025 01:45 RBC 2.93 m/mm3 (Low)?? 03/04/2025 01:45 Hgb 9.5 Gm/dL (Low)?? 03/04/2025 01:45 Hct 28.6 % (Low)?? 03/04/2025 01:45 MCV 97.6 femtoliters ()?? 03/04/2025 01:45 MCH 32.4 pg ()?? 03/04/2025 01:45 MCHC 33.2 Gm/dL ()?? 03/04/2025 01:45 Platelet Count 162 k/mm3 ()?? 03/04/2025 01:45 RDW-SD 49.1 femtoliters (High)?? 03/04/2025 01:45 MPV 9.8 femtoliters ()?? 03/04/2025 01:45 Nucleated RBC (Automated) 0.0 #/100 WBC'S ()?? 03/04/2025 01:45 Abs. NRBC 0.0 k/mm3 ()?? 03/04/2025 01:45 ?? CARDIAC High Sensitivity Troponin (HSTnT) 62 ng/L (Critical)?? 03/03/2025 19:30 ? CHEM GENERAL Sodium 132 mmol/L (Low)?? 03/06/2025 02:59 Potassium 4.9 mmol/L ()?? 03/06/2025 02:59 Chloride 98 mmol/L ()?? 03/06/2025 02:59 Bicarbonate Level 23 mmol/L ()?? 03/06/2025 02:59 Anion Gap 11 mmol/L ()?? 03/06/2025 02:59 Glucose Level 105 mg/dL (High)?? 03/06/2025 02:59 Glucose, POC 120 mg/dL (High)?? 03/03/2025 10:00 BUN 39 mg/dL (High)?? 03/06/2025 02:59 Creatinine-Blood 1.88 mg/dL (High)?? 03/06/2025 02:59 Estimated GFR Creatinine 27 ML/MIN/1.73 M2 ()?? 03/06/2025 02:59 Calcium 9.7 mg/dL ()?? 03/06/2025 02:59 Phosphorus 2.7 mg/dL ()?? 03/04/2025 01:45 Magnesium 1.6 mg/dL ()?? 03/04/2025 01:45 ? COAG POC ACT-LR 312.0 seconds ()?? 03/04/2025 15:57 ? HEME OTHER Hold Lavender Top SPECIMEN DISCARDED AFTER 24 HOURS. ()?? 03/05/2025 08:08 ? URINE OTHER Est Creatinine Clearance 20.76 mL/min ()?? 03/06/2025 04:42 ? 32??minutes spent on discharge Electronically Signed on 03/06/25 10:24 AM Pio Castano DO, RN, James: PERFORM Event Display: Patient Education/Instruction Authored Date: [id number] Inpatient Adult Discharge Instructions. [address] [address] Name: LEBRON MUKHERJEE : 1945?? Visit: 03/03/2025 09:38?? Current Date: 03/06/2025 11:05 ?? Account: [id number]?? Inpatient Adult Discharge Instructions We would like to thank you for allowing us to assist you with your healthcare needs. The following includes patient education materials and information regarding your injury/illness. Our entire staffstrives to provide an excellent experience for our patients and their families. PLEASE ENSURE YOU FOLLOW-UP PER THE INSTRUCTIONS BELOW! ?? YOUR OPINION IS IMPORTANT TO US! Please complete the survey you may receive by mail or email. Your feedback will be used to make improvements to the healthcare experiences of our patients and their families. Surveys are administered by [employer] ?? If further treatment with your primary care physician or another doctor is recommended, it is important for you to keep the appointment. Call your primary care physician or return to the Emergency Department immediately if your condition worsens, fails to improve, or new symptoms develop. If you need to find a doctor, you can call [facility] for a referral at [phone] or toll free at [phone] ([phone]) or log in to [email or web address].. ?? [facility], in keeping with [facility] guidance, no longer requires face masks for staff, patientsor visitors in most situations. Similiar to time spent indoors at other locations, there is the chance that you were exposed to repiratory viruses during your time with us (such as flu or COVID-19). If you develop symptoms concerning for a viral respiratory infection, please seek testing (and treatment if indicated) from your medical provider or home test kit. ?? You can view and manage your care through the patient portal or by using a health care ezequiel of your choosing. [address] is a website that allows you to securely view your medical information including your hospital discharge summary, office visit summaries, medications and follow-up visits. You can also request appointments, renew medications, and request access to your medical information using a health care ezequiel of your choosing, or just ask a question. You are entitled to know the individuals who participated in your treatment. This information is available within your medical record and will be provided upon your request. You can enroll at [email or web address] or register d uring your next office visit. You have been discharged from [facility], Patient Care Unit: M5??. If you have any questions regarding these instructions, including results of studies pending, afteryou leave, please call us and we will be happy to assist you 25/11. [facility] Your Care Team Attending Physician Pio Castano DO?? Consulting Providers Pio Castano DO?? Discharging Providers Pio Castano DO Reason for Your Visit Daystay cardiac cath?? Your Diagnosis Anxiety and depression CHF (congestive heart failure) Chronic GERD COPD exacerbation COPD without exacerbation Coronary artery disease Hypertension Hypothyroid Neuropathy RLS (restless legs syndrome) Tests Performed Below is a partial list of the tests performed during your hospitalization. You may have had other tests and procedures not included in this list. Please discuss all test results with your provider. Basic Metabolic Panel BUN CBC Creatinine Electrolytes GLUCOSE POC HOLD LAVENDER TUBE MAGNESIUM PHOSPHORUS POC Hemochron ACT-LR Potassium Level Troponin T, High Sensitivity Add On Lab Order?? BUN?? Basic Metabolic Panel?? CBC?? Creatinine?? Electrolytes?? Glucose POC?? High??Sensitivity??Troponin T (Troponin T, High Sensitivity)?? Hold Lavender Top Tube (HOLD LAVENDER TUBE)?? Magnesium Level (MAGNESIUM)?? POC ACT-LR (POC Hemochron ACT-LR)?? Phosphorus Level (PHOSPHORUS)?? Potassium Level?? Primary Care Provider Jaylen Taylor NP? Advance Directive Health Care Proxy on File Yes - Health Care Proxy Discharge Vitals Temperature: 97.4 DegF Height: 163 cm Pulse Rate: 66 bpm Weight: 57.5 kg Respiratory Rate: 16 br/min Body Mass Index: 21.72 kg/m2 Systolic Blood Pressure: 109 mm Hg Body surface area: 1.62 Diastolic Blood Pressure: 78 mm Hg ?? Oxygen Saturation: 97 % ?? Studies Pending All studies ordered during this hospital stay have been completed unless listed below. Please discuss all pending results with your provider listed above in these instructions. ?? Add On Lab Order?? What to do next Instructions From Your Doctor ?? Orders? 03/06/25 10:24:00 EST?? Prescriptions??, ??03/06/25 10:24:00 EST , ??03/05/25 14:21:00 EDT?? You Need to Schedule the Following Appointments Follow Up with??[facility] [phone] When:Within 1 week Follow Up with??[facility]: Cardiac Rehab ?? Where:[address] [place] [address]- [phone] Additional Information: cardiac rehab exercise program. We will call you to set up appointment! Follow Up with??Jaylen Taylor When:In 0 days Where:[address] [place] [address] Business (1) Discharge Medications LEBRON MUKHERJEE :1945 Visit Date:03/03/2025 Medications: Please continue your medications until treatment is completed or stopped by your provider. Medications not listed below should be discontinued. Discuss any questions related to medications with your provider. What How Much When Instructions Next Dose New Nicotine (nicotine 14 mg/ 24 hr transdermal film, extended release) 14 Milligram Topically Daily Duration: 28 Days Ordering Physician: Demian RASCON, Bong Bañuelos at [facility] 3 Tomorrow AM Changed Levothyroxine (levothyroxine 100 mcg (0.1 mg)/ 5 mL oral solution) 125 Microgram Oral Daily Special Instructions: on an empty stomach ?? Tomorrow morning before eating or drinking Unchanged Albuterol (albuterol 0.083% inhalation solution) 3 Milliliter Inhalation Every 6 hours as needed for for wheezing Continue as before Unchanged Amlodipine (amLODIPine 5 mg oral tablet) 1 tab(s) Oral Twice a day Duration: 30 Days Ordering Physician: Rafat Bourne MD Continue as before Unchanged Aspirin (aspirin 81 mg oral capsule) 1 capsule Oral Daily Continue as before Unchanged Atorvastatin (Lipitor 80 mg oral tablet) 1 tab(s) Oral Daily at Bedtime Ordering Physician: Deborah Schilling MD Continue as before Unchanged Cetirizine (cetirizine 10 mg oral tablet) 1 tab(s) Oral Daily Continue as before Unchanged Clopidogrel (Plavix 75 mg oral tablet) 1 tab(s) Oral Daily Continue as before Unchanged Cyanocobalamin (Vitamin B12 1000 mcg oral tablet) 1 tab(s) Oral Daily Continue as before Unchanged Ezetimibe (ezetimibe 10 mg oral tablet) 1 tab(s) Oral Daily Continue as before Unchanged Famotidine (famotidine 20 mg oral tablet) 20 Milligram Oral Daily Duration: 30 Days Ordering Physician: Jerry Saab DO Continue as before Unchanged Ferrous Sulfate (ferrous sulfate 325 mg oral tablet) Special Instructions: TAKE 1 TABLET BY MOUTH 1 TIME EACH DAY WITH BREAKFAST. ?? Continue as before Unchanged Furosemide (furosemide 20 mg oral tablet) 1 tab(s) Oral Daily Duration: 30 Days Ordering Physician: Rafat Bourne MD Continue as before Unchanged Gabapentin (gabapentin 600 mg oral tablet) 1 tab(s) Oral Twice a day Continue as before Unchanged Metoprolol (metoprolol succinate 50 mg oral capsule, extended release) 1 capsule Oral Daily Continue as before Unchanged Pantoprazole (Protonix 40 mg oral delayed release tablet) 40 Milligram Oral Twice a day Duration: 30 Days Ordering Physician: Jerry Saab DO Continue as before Unchanged Pramipexole (pramipexole 0.125 mg oral tablet) 2 tab(s) Oral Daily at Bedtime Continue as before Unchanged Sertraline (sertraline 100 mg oral tablet) 1 tab(s) Oral Daily Continue as before [facility] [address], [place] [id number] [phone] Prescription Given During Visit Nicotine (nicotine 14 mg/24 hr transdermal film, extended release) - 14 mg, Topically, Daily, # 28 patch, 0 Refills, [facility], [address] [place] [phone]?? Laboratory Results Below is a partial list of the most recent Laboratory test results done prior to this discharge. You may have had other tests and procedures not included in this list. Please discuss all test resultswith your provider. Est Creatinine Clearance - 20.76 mL/min (03/06/2025) Basic Metabolic Panel (03/06/2025) ???Sodium - 132 mmol/L???Potassium - 4.9 mmol/L???Chloride - 98 mmol/L???Bicarbonate Level - 23 mmol/L???Anion Gap - 11 mmol/L???Glucose Level - 105 mg/dL???BUN - 39 mg/dL???Creatinine-Blood - 1.88 mg/dL???Estimated GFR Creatinine - 27 ML/MIN/1.73 M2???Calcium - 9.7 mg/dL BUN (03/04/2025) ???BUN - 33 mg/dL CBC (03/04/2025) ???WBC - 6.5 k/mm3???RBC - 2.93 m/mm3???Hgb - 9.5 Gm/dL???Hct - 28.6 %???MCV - 97.6 femtoliters???MCH - 32.4 pg???MCHC - 33.2 Gm/dL???Platelet Count - 162 k/mm3???RDW-SD - 49.1 femtoliters???MPV - 9.8 femtoliters???Nucleated RBC (Automated) - 0.0 #/100 WBC'S???Abs. NRBC - 0.0 k/mm3 Creatinine (03/04/2025) ???Creatinine-Blood - 1.73 mg/dL???Estimated GFR Creatinine - 30 ML/MIN/1.73 M2 Electrolytes (03/04/2025) ???Sodium - 138 mmol/L???Potassium - 5.3 mmol/L???Chloride - 107 mmol/L???Bicarbonate Level - 19 mmol/L???Anion Gap - 12 mmol/L GLUCOSE POC (03/03/2025) ???Glucose, POC - 120 mg/dL HOLD LAVENDER TUBE (03/05/2025) ???Hold Lavender Top - SPECIMEN DISCARDED AFTER 24 HOURS. MAGNESIUM (03/04/2025) ???Magnesium - 1.6 mg/dL PHOSPHORUS (03/04/2025) ???Phosphorus - 2.7 mg/dL POC Hemochron ACT-LR (03/04/2025) ???POC ACT-LR - 312.0 seconds Potassium Level (03/05/2025) ???Potassium - 4.9 mmol/L Troponin T, High Sensitivity (03/03/2025) ???High Sensitivity Troponin (HSTnT) - 62 ng/L Allergies (NKA means No Known Allergies) Cordran Tape Milk Products Motrin Percocet??Hives Wheat statins Problems Active Problems??(18) Acute hypoxic respiratory failure?? Bilateral carotid artery stenosis?? CHF exacerbation?? Chronic back pain?? CKD (chronic kidney disease)?? COPD (chronic obstructive pulmonary disease)?? GERD (gastroesophageal reflux disease)?? HLD (hyperlipidemia)?? HTN (hypertension)?? Hyperkalemia?? Hypothyroidism?? Moderate aortic valve stenosis?? Osteoarthritis?? Peripheral vascular disease?? Restless leg syndrome?? Tachycardia-bradycardia syndrome?? Type 2 diabetes mellitus?? Urinary incontinence?? Education Materials Below is the list of Educational Leaflet Providered with your Discharge Instructions. [employer] Patient Education - Cardiac Rehabilitation?? Valuables and Belongings I fully understand and agree that [facility] accepts no responsibility for all my personal property including clothing, toilet articles, radios, jewelry, dentures, hearing aids, rings, money, or any other property that is in my possession or is brought to me after admission. I understand certain valuables may be placed in a hospital safe for a short period of time. I understand that the hospital is not liable for loss or damage due to accident, fire, or other natural occurrence while said property is in the safe. I accept full responsibility for any personal property that I keep with me, and will not hold the hospital responsible in case of loss or disappearance. I acknowledge that i have been encouraged to send valuables and belongings home. ?? Review of Valuable and Belonging List: With patient Date for Pt to Sign Valuables/Belongings: 03/03/25 10:26:00 ?? Other Discharge Information ? Pulmonary Rehab Status?? Pulmonary Rehab Discharge Status?? Respiratory Rate: 16 br/min ? Cardiac Rehab Assessment?? Cardiac Rehab Inpatient Assessment?? Comments-Education: post procedure and home activty guidelines Comments-Smoking Cessation: patient referred to smoking cessation study Comments-Exercise Activity: increase activity as tolerated Comments-Nutrition: per RD Comments-Stress Management: healthy coping techniques Comments-Lipids: exercise, diet, medications per MD Comments-Other plan of care: refer to phase 2 cardiac rehab Common Emergency Awareness Tips IS IT A STROKE? Act FAST and Check for these signs: FACE Does the face look uneven? ARM Does one arm drift down? SPEECH Does their speech sound strange? TIME Call at any sign of stroke ?? Heart Attack Signs Chest discomfort: Most heart attacks involve discomfort in the center of the chest and lasts more than a few minutes, or goes away and comes back. It can feel like uncomfortable pressure, squeezing, fullness or pain. Discomfort in upper body: Symptoms can include pain or discomfort in one or both arms, back, neck, jaw or stomach. Shortness of breath: With or without discomfort. Other signs: Breaking out in a cold sweat, nausea, or lightheaded. Remember, MINUTES DO MATTER. If you experience any of these heart attack warning signs, call to get immediate medical attention! ?? Smoking can increase your chances of developing chronic health problems and can cause harmful effects to other family members in your house. If you smoke, you are strongly encouraged to quit. Please call [facility] [employer] at [phone] or [phone] ([phone]) or log in to [email or web address] for referrals to smoking cessation programs. ?? 252 Suicide & Crisis Lifeline is available 25/11 if you or someone you know needs to find a reason to keep living. By calling 222 you'll be connected to a skilled, trained counselor at a crisis center in your area. INPATIENT DISCHARGE INSTRUCTIONS SIGNATURE PAGE LEBRON MUKHERJEE Location:[facility] Registration Date and Time:03/03/2025 09:38 EDT Primary Care Physician: Claudia GIRON, Jaylen, Attending Physician: Pio Castano DO, I LEBRON MUKHERJEE, have received the above patient education materials/instructions and have verbalized understanding. If ambulance or transport services are being used I further acknowledge being given a choice of service. ?? If you need to contact me, please call me at this number: . Patient/Hvac Manager Name: Patient/Hvac Manager Signature: Relationship to Patient: Witness Name/Signature: Date: * Bong Arciniega MD: MODIFY, MODIFY, PERFORM Event Display: Discharge/Transfer Note Hospital Authored Date: Patient: ??LEBRON MUKHERJEE ? Age:??79 Years?Sex:??Female?:??1945?LOC:??[facility]?? Patient Information Discharge Location: Primary Care Physician: Jaylen Taylor NP Admit Date/Time: 03/03/2025 09:38 Discharge Diagnosis ??left circumflex and left main into LAD s/p drug eluding stent on 03/04. Hyperkalemia CKD _ Discharge Medications Albuterol (albuterol 0.083% inhalation solution)??3 Milliliter 2.5 Milligram Inhalation Every 6 hours as needed for wheezing Amlodipine (amLODIPine 5 mg oral tablet)??5 Milligram 1 tablet By Mouth 2 times a day for 30 Days Aspirin (aspirin 81 mg oral capsule)??1 capsule 81 Milligram By Mouth Daily Atorvastatin (Lipitor 80 mg oral tablet)??1 tab(s) 80 Milligram By Mouth Daily at bedtime Cetirizine (cetirizine 10 mg oral tablet)??1 tab(s) 10 Milligram By Mouth Daily Clopidogrel (Plavix 75 mg oral tablet)??75 Milligram 1 tablet By Mouth Daily Cyanocobalamin (Vitamin B12 1000 mcg oral tablet)??1 tab(s) 1,000 Microgram By Mouth Daily Ezetimibe (ezetimibe 10 mg oral tablet)??1 tab(s) 10 Milligram By Mouth Daily Famotidine (famotidine 20 mg oral tablet)??20 Milligram By Mouth Daily for 30 Days Ferrous Sulfate (ferrous sulfate 325 mg oral tablet)??TAKE 1 TABLET BY MOUTH 1 TIME EACH DAY WITH BREAKFAST. Furosemide (furosemide 20 mg oral tablet)??20 Milligram 1 tablet By Mouth Daily for 30 Days Gabapentin (gabapentin 600 mg oral tablet)??1 tab(s) 600 Milligram By Mouth 2 times a day Levothyroxine (levothyroxine 100 mcg (0.1 mg)/5 mL oral solution)??125 Microgram By Mouth Daily on an empty stomach Metoprolol (metoprolol succinate 50 mg oral capsule, extended release)??1 capsule 50 Milligram By Mouth Daily Nicotine (nicotine 14 mg/24 hr transdermal film, extended release)??14 Milligram Topically Daily for 28 Days Pantoprazole (Protonix 40 mg oral delayed release tablet)??40 Milligram By Mouth 2 times a day for 30 Days Pramipexole (pramipexole 0.125 mg oral tablet)??2 tab(s) 0.25 Milligram By Mouth Daily at bedtime Sertraline (sertraline 100 mg oral tablet)??1 tab(s) 100 Milligram By Mouth Daily ? Quality Measures Tobacco Use Treatment:?Cessation Medication Prescribed on Discharge:??Tobacco Cessation Medication Prescribed ? Vaccinations and Immunoprophylaxis influenza virus vaccine, inactivated: 0.5 Unknown (02/14/22 08:00:00) influenza virus vaccine, inactivated: 0.5 Unknown (03/11/14 07:00:00) influenza virus vaccine, inactivated: 0.5 Unknown (01/20/13 08:00:00) influenza virus vaccine, inactivated: 0.5 Unknown (01/16/12 08:00:00) influenza virus vaccine, inactivated: 0.5 Unknown (02/04/11 08:00:00) influenza virus vaccine, inactivated: 0.5 Unknown (02/15/10 08:00:00) influenza virus vaccine, inactivated: 0.5 Unknown (02/23/08 08:00:00) influenza virus vaccine, inactivated: 0.5 Unknown (03/19/07 07:00:00) influenza virus vaccine, inactivated: 0.5 Unknown (02/25/06 08:00:00) influenza virus vaccine, inactivated: 0 Unknown (03/01/05 08:00:00) pneumococcal 23-valent vaccine: 0.5 Unknown (09/04/09 08:00:00) pneumococcal 23-valent vaccine: 0 Unknown (06/04/02 07:00:00) tetanus/diphtheria/pertussis, acel(Tdap): 0.5 Unknown (11/22/21 08:00:00) tetanus/diphtheria/pertussis, acel(Tdap): 0.5 Unknown (09/21/08 08:00:00) Zoster Vaccine Live: 0.65 Unknown (04/06/09 07:00:00) ?? Discharge Medications New Nicotine (nicotine 14 mg/24 hr transdermal film, extended release)14 Milligram Topically Daily for 28 Days. Refills: 0. Changed Levothyroxine (levothyroxine 100 mcg (0.1 mg)/5 mL oral solution)125 Microgram Oral Daily. on an empty stomach. Unchanged Albuterol (albuterol 0.083% inhalation solution)3 Milliliter Inhalation every 6 hours as needed forwheezing. Amlodipine (amLODIPine 5 mg oral tablet)1 tab(s) Oral twice a day for 30 Days. Refills: 0. Aspirin (aspirin 81 mg oral capsule)1 capsule Oral Daily. Atorvastatin (Lipitor 80 mg oral tablet)1 tab(s) Oral Daily at Bedtime. Refills: 0. Cetirizine (cetirizine 10 mg oral tablet)1 tab(s) Oral Daily. Clopidogrel (Plavix 75 mg oral tablet)1 tab(s) Oral Daily. Cyanocobalamin (Vitamin B12 1000 mcg oral tablet)1 tab(s) Oral Daily. Ezetimibe (ezetimibe 10 mg oral tablet)1 tab(s) Oral Daily. Famotidine (famotidine 20 mg oral tablet)20 Milligram Oral Daily for 30 Days. Refills: 0. Ferrous Sulfate (ferrous sulfate 325 mg oral tablet)TAKE 1 TABLET BY MOUTH 1 TIME EACH DAY WITH BREAKFAST.. Furosemide (furosemide 20 mg oral tablet)1 tab(s) Oral Daily for 30 Days. Refills: 0. Gabapentin (gabapentin 600 mg oral tablet)1 tab(s) Oral twice a day. Metoprolol (metoprolol succinate 50 mg oral capsule, extended release)1 capsule Oral Daily. Pantoprazole (Protonix 40 mg oral delayed release tablet)40 Milligram Oral twice a day for 30 Days.Refills: 0. Pramipexole (pramipexole 0.125 mg oral tablet)2 tab(s) Oral Daily at Bedtime. Sertraline (sertraline 100 mg oral tablet)1 tab(s) Oral Daily. Allergies Allergies ?(Active and Proposed Allergies Only) Wheat? (Severity: Unknown severity, Onset: Unknown) Milk Products? (Severity: Unknown severity, Onset: Unknown) Percocet? (Severity: Unknown severity, Onset: Unknown) ?Reactions: Hives statins? (Severity: Unknown severity, Onset: Unknown) Cordran Tape? (Severity: Unknown severity, Onset: Unknown) Motrin? (Severity: Unknown severity, Onset: Unknown) ? PCP Follow-Up/Heads-Up pcp f/u in 1 week to rpt BMP. Hospital Course ??79-year-old female with a history of progressive exertional shortness of breath over the past several months. She recently underwent an outpatient stress test which she failed, prompting referral for elective left heart catheterization today. Per discussion with the cardiac surgeon at bedside, cat heterization revealed severe narrowing of the left circumflex artery (exact degree of stenosis not yet available in the formal cath report). The patient is reportedly not a surgical candidate. The primary cardiology team is currently evaluating for possible PCI/stenting. She is chest pain-free at present and denies dyspnea, palpitations, lightheadedness, or other acute symptoms. Objective Assessment and Plan 79-year-old female with a history of progressive exertional shortness of breath over the past several months. She recently underwent an outpatient stress test which she failed, Severe left circumflex coronary artery disease, not a surgical candidate. ?? Plan: Continue telemetry monitoring Continue home cardiac medications (beta-elizabeth, statin, aspirin) unless otherwise directed by cardiology ?? Outpatient diagnostic cardiac catheterization. He has noted severe distal ??left main stenosis with heavy calcification in ostial circumflex. ??We have decided to take the patient off the table and have discussion for ??surgery versus high risk PCI. ?Diagnostic Recommendations ??Continue aspirin 81 mg/day indefinitely. ??Aggressive secondary risk factor modification according to ATP III ??guidelines. ??Surgical consult. If deemed not a surgical candidate then Plavix should be ??continued. If deemed not a surgical candidate then we will plan high risk ??PCI with support. ?ACC Diagnostic Recommendations: CABG.? CT sx recs recommend proceeding with Heart Team discussion for consideration of high-risk PCI to the left main and circumflex, supported by advanced hemodynamic support if needed. From a surgical standpoint, no operative intervention is advised at this time. She should continue optimal medical therapy, including dual antiplatelet therapy, high-intensity statin, and diuretic management for heart failure, along with aggressive risk factor modification and smoking cessation. ? PCI cath 79-year-old lady with chest discomfort and pulmonary edema presenting for ??abnormal nuclear perfusion imaging. Angiography showed severe distal left ??main stenosis. She was deemed nonsurgical candidate by CT surgery and was ??brought in for high risk PCI. ?Successful drug-eluting stent of the left circumflex and left main into LAD ??as described in the narrative. ??Intravascular ultrasound. ??Intravascular lithotripsy. ?Interventional Recommendations ??Continue aspirin 81 mg indefinitely. ??Continue clopidogrel therapy for at least 12 month(s) post-PCI. ??Aggressive secondary risk factor modification according to ATP III ??guidelines. ??Titration of antihypertensive medications. ??Cardiac rehabilitation at [facility]. ??Follow-up in the office in 2 weeks at [facility]. ?ACC Diagnostic Recommendations: PCI without planned CABG. ?? Cardiology cleared for discharge. ?? Hyperkalemia CKD Cr at the baseline, hyperkalemia resolved. Low potassium diet, repeat BMP??in 1 week by PCP ?? Chronic medical conditions Hypertension: Continue amlodipine CHF: Continue Lasix Neuropathy: Continue gabapentin Hypothyroidism: Continue??levothyroxine Restless legs: Continue pramipexole GERD: Continue pantoprazole Anxiety depression: Continue sertraline COPD:??cont home bronchodilators. ?? At the time of discharge BP 84/46, holding BP meds, encourage po fluds, will hold discharge for now. ? Vital Signs?? Temperature: 97.9 DegF (03/05/25 08:47:00) Temperature Route: Oral (03/05/25 08:47:00) Pulse Rate: 73 bpm (03/05/25 08:47:00) Respiratory Rate: 18 br/min (03/05/25 10:03:00) Systolic Blood Pressure: 118 mm Hg (03/05/25 13:00:00) Diastolic Blood Pressure:??46 mm Hg??Low (03/05/25 13:00:00) Blood pressure sites: Arm, left (03/05/25 13:00:00) Mean Arterial Pressure: 91 mm Hg (03/05/25 08:47:00) Pulse Pressure: 41 mm Hg (03/05/25 08:47:00) Oxygen Saturation: 97 % (03/05/25 08:47:00) Liters per Minute: 2 L/min (03/05/25 02:00:00) Mode of Delivery (Oxygen): Room air (03/05/25 08:47:00) Early Warning Score: 2 (03/05/25 13:28:54) ? . Physical Exam General:??79 year old female lies in bed comfortably in no acute distress HEENT: NCAT, moist oral mucosa, good dentition, oropharynx without erythema Card: RRR no murmur, non displaced PMI, no JVD, 2+ radial pulse B/L Resp: CTA B/L, no wheezing, rales, ronchi Abdomen: soft and non tender, bowel sounds WNL Extremities: no pitted edema B/L lower extremities Skin: Without rashes or lesions, good turgor Hem/Lymph: without bruising or lymphadenopathy Psych: appropriate affect Neuro: A&OX3, no focal motor deficits Pending Results Add On Lab Order ordered on 03/04/2025 Basic Metabolic Panel ordered on 03/06/2025 Patient Education Titles Web[employer] Ignite Patient Education - Cardiac Rehabilitation?? Follow-Up Appointments Added Follow Up ?Time Frame ?Comments [facility] [phone]?1 week [facility]: Cardiac Rehab?cardiac rehab exercise program. We will call you to set up appointment! [facility] Face to Face ^HomeHealthFTF Results Discharge Labs BLOOD COUNT & DIFF WBC 6.5 k/mm3 ()?? 03/04/2025 01:45 RBC 2.93 m/mm3 (Low)?? 03/04/2025 01:45 Hgb 9.5 Gm/dL (Low)?? 03/04/2025 01:45 Hct 28.6 % (Low)?? 03/04/2025 01:45 MCV 97.6 femtoliters ()?? 03/04/2025 01:45 MCH 32.4 pg ()?? 03/04/2025 01:45 MCHC 33.2 Gm/dL ()?? 03/04/2025 01:45 Platelet Count 162 k/mm3 ()?? 03/04/2025 01:45 RDW-SD 49.1 femtoliters (High)?? 03/04/2025 01:45 MPV 9.8 femtoliters ()?? 03/04/2025 01:45 Nucleated RBC (Automated) 0.0 #/100 WBC'S ()?? 03/04/2025 01:45 Abs. NRBC 0.0 k/mm3 ()?? 03/04/2025 01:45 ?? CARDIAC High Sensitivity Troponin (HSTnT) 62 ng/L (Critical)?? 03/03/2025 19:30 ? CHEM GENERAL Sodium 138 mmol/L ()?? 03/05/2025 08:08 Potassium 4.9 mmol/L ()?? 03/05/2025 12:47 Chloride 104 mmol/L ()?? 03/05/2025 08:08 Bicarbonate Level 22 mmol/L ()?? 03/05/2025 08:08 Anion Gap 12 mmol/L ()?? 03/05/2025 08:08 Glucose Level 113 mg/dL (High)?? 03/05/2025 08:08 Glucose, POC 120 mg/dL (High)?? 03/03/2025 10:00 BUN 34 mg/dL (High)?? 03/05/2025 08:08 Creatinine-Blood 1.64 mg/dL (High)?? 03/05/2025 08:08 Estimated GFR Creatinine 31 ML/MIN/1.73 M2 ()?? 03/05/2025 08:08 Calcium 9.9 mg/dL ()?? 03/05/2025 08:08 Phosphorus 2.7 mg/dL ()?? 03/04/2025 01:45 Magnesium 1.6 mg/dL ()?? 03/04/2025 01:45 ? COAG POC ACT-LR 312.0 seconds ()?? 03/04/2025 15:57 ? HEME OTHER Hold Lavender Top SPECIMEN DISCARDED AFTER 24 HOURS. ()?? 03/05/2025 08:08 ? URINE OTHER Est Creatinine Clearance 23.80 mL/min ()?? 03/05/2025 09:38 ? 25_ minutes spent on discharge Electronically Signed on 03/05/25 02:20 PM Bong Arciniega MD Electronically Signed on 03/05/25 04:06 PM Demian RASCON, Bong Ortega RN, Benjamin: PERFORM Event Display: Patient Education/Instruction Authored Date: [id number] Inpatient Adult Discharge Instructions. [address] [address] Name: LEBRON MUKHERJEE : 1945?? Visit: 03/03/2025 09:38?? Current Date: 03/05/2025 15:46 ?? Account: [id number]?? Inpatient Adult Discharge Instructions We would like to thank you for allowing us to assist you with your healthcare needs. The following includes patient education materials and information regarding your injury/illness. Our entire staffstrives to provide an excellent experience for our patients and their families. PLEASE ENSURE YOU FOLLOW-UP PER THE INSTRUCTIONS BELOW! ?? YOUR OPINION IS IMPORTANT TO US! Please complete the survey you may receive by mail or email. Your feedback will be used to make improvements to the healthcare experiences of our patients and their families. Surveys are administered by [employer] ?? If further treatment with your primary care physician or another doctor is recommended, it is important for you to keep the appointment. Call your primary care physician or return to the Emergency Department immediately if your condition worsens, fails to improve, or new symptoms develop. If you need to find a doctor, you can call [facility] [employer] for a referral at [phone] or toll free at [phone]) or log in to [email or web address].. ?? [facility], in keeping with [facility] guidance, no longer requires face masks for staff, patientsor visitors in most situations. Similiar to time spent indoors at other locations, there is the chance that you were exposed to repiratory viruses during your time with us (such as flu or COVID-19). If you develop symptoms concerning for a viral respiratory infection, please seek testing (and treatment if indicated) from your medical provider or home test kit. ?? You can view and manage your care through the patient portal or by using a health care ezequiel of your choosing. [address] is a website that allows you to securely view your medical information including your hospital discharge summary, office visit summaries, medications and follow-up visits. You can also request appointments, renew medications, and request access to your medical information using a health care ezequiel of your choosing, or just ask a question. You are entitled to know the individuals who participated in your treatment. This information is available within your medical record and will be provided upon your request. You can enroll at [email or web address] or register d uring your next office visit. You have been discharged from [facility], Patient Care Unit: M5??. If you have any questions regarding these instructions, including results of studies pending, afteryou leave, please call us and we will be happy to assist you 25/11. [facility] Your Care Team Attending Physician Bong Arciniega MD?? Consulting Providers Bong Arciniega MD?? Discharging Providers Bong Arciniega MD Reason for Your Visit Daystay cardiac cath?? Tests Performed Below is a partial list of the tests performed during your hospitalization. You may have had other tests and procedures not included in this list. Please discuss all test results with your provider. BUN CBC Creatinine Electrolytes GLUCOSE POC HOLD LAVENDER TUBE MAGNESIUM PHOSPHORUS POC Hemochron ACT-LR Potassium Level Troponin T, High Sensitivity Add On Lab Order?? BUN?? Basic Metabolic Panel?? CBC?? Creatinine?? Electrolytes?? Glucose POC?? High??Sensitivity??Troponin T (Troponin T, High Sensitivity)?? Hold Lavender Top Tube (HOLD LAVENDER TUBE)?? Magnesium Level (MAGNESIUM)?? POC ACT-LR (POC Hemochron ACT-LR)?? Phosphorus Level (PHOSPHORUS)?? Potassium Level?? Primary Care Provider Claudia GIRON, Jaylen? Advance Directive Health Care Proxy on File Yes - Health Care Proxy Discharge Vitals Temperature: 97.9 DegF Height: 163 cm Pulse Rate: 80 bpm Weight: 57.5 kg Respiratory Rate: 20 br/min Body Mass Index: 21.72 kg/m2 Systolic Blood Pressure:??83 mm Hg??Low Body surface area: 1.62 Diastolic Blood Pressure:??37 mm Hg??Low ?? Oxygen Saturation:??93 %??Low ?? Studies Pending All studies ordered during this hospital stay have been completed unless listed below. Please discuss all pending results with your provider listed above in these instructions. ?? Add On Lab Order?? Basic Metabolic Panel?? What to do next Instructions From Your Doctor ?? Orders? 03/05/25 14:21:00 EDT?? Prescriptions??, ??03/05/25 14:21:00 EDT?? You Need to Schedule the Following Appointments Follow Up with??[facility] [phone] When:Within 1 week Follow Up with??[facility]: Cardiac Rehab ?? Where:[address], [place] [id number]- [phone] Additional Information: cardiac rehab exercise program. We will call you to set up appointment! Follow Up with??Jaylen Taylro When:In 0 days Where:[address] [place] [address] Business (1) Discharge Medications LEBRON MUKHERJEE :1945 Visit Date:03/03/2025 Medications: Please continue your medications until treatment is completed or stopped by your provider. Medications not listed below should be discontinued. Discuss any questions related to medications with your provider. What How Much When Instructions Next Dose New Nicotine (nicotine 14 mg/ 24 hr transdermal film, extended release) 14 Milligram Topically Daily Duration: 28 Days Ordering Physician: Demian RASCON, Bong Bañuelos at [facility] 3 Tomorrow AM Changed Levothyroxine (levothyroxine 100 mcg (0.1 mg)/ 5 mL oral solution) 125 Microgram Oral Daily Special Instructions: on an empty stomach ?? Tomorrow AM Unchanged Albuterol (albuterol 0.083% inhalation solution) 3 Milliliter Inhalation Every 6 hours as needed for for wheezing Continue as before Unchanged Amlodipine (amLODIPine 5 mg oral tablet) 1 tab(s) Oral Twice a day Duration: 30 Days Ordering Physician: Rafat Bourne MD Continue as before Unchanged Aspirin (aspirin 81 mg oral capsule) 1 capsule Oral Daily Continue as before Unchanged Atorvastatin (Lipitor 80 mg oral tablet) 1 tab(s) Oral Daily at Bedtime Ordering Physician: Deborah Schilling MD Continue as before Unchanged Cetirizine (cetirizine 10 mg oral tablet) 1 tab(s) Oral Daily Continue as before Unchanged Clopidogrel (Plavix 75 mg oral tablet) 1 tab(s) Oral Daily Continue as before Unchanged Cyanocobalamin (Vitamin B12 1000 mcg oral tablet) 1 tab(s) Oral Daily Continue as before Unchanged Ezetimibe (ezetimibe 10 mg oral tablet) 1 tab(s) Oral Daily Continue as before Unchanged Famotidine (famotidine 20 mg oral tablet) 20 Milligram Oral Daily Duration: 30 Days Ordering Physician: Jerry Saab DO Continue as before Unchanged Ferrous Sulfate (ferrous sulfate 325 mg oral tablet) Special Instructions: TAKE 1 TABLET BY MOUTH 1 TIME EACH DAY WITH BREAKFAST. ?? Continue as before Unchanged Furosemide (furosemide 20 mg oral tablet) 1 tab(s) Oral Daily Duration: 30 Days Ordering Physician: Rafat Bourne MD Continue as before Unchanged Gabapentin (gabapentin 600 mg oral tablet) 1 tab(s) Oral Twice a day Continue as before Unchanged Metoprolol (metoprolol succinate 50 mg oral capsule, extended release) 1 capsule Oral Daily Continue as before Unchanged Pantoprazole (Protonix 40 mg oral delayed release tablet) 40 Milligram Oral Twice a day Duration: 30 Days Ordering Physician: Jerry Saab DO Continue as before Unchanged Pramipexole (pramipexole 0.125 mg oral tablet) 2 tab(s) Oral Daily at Bedtime Continue as before Unchanged Sertraline (sertraline 100 mg oral tablet) 1 tab(s) Oral Daily Continue as before [facility] [address], [place] [id number] [phone] Prescription Given During Visit Nicotine (nicotine 14 mg/24 hr transdermal film, extended release) - 14 mg, Topically, Daily, # 28 patch, 0 Refills, [facility], [address] [place] [address] [phone]?? Laboratory Results Below is a partial list of the most recent Laboratory test results done prior to this discharge. You may have had other tests and procedures not included in this list. Please discuss all test resultswith your provider. Est Creatinine Clearance - 23.80 mL/min (03/05/2025) BUN (03/04/2025) ???BUN - 33 mg/dL CBC (03/04/2025) ???WBC - 6.5 k/mm3???RBC - 2.93 m/mm3???Hgb - 9.5 Gm/dL???Hct - 28.6 %???MCV - 97.6 femtoliters???MCH - 32.4 pg???MCHC - 33.2 Gm/dL???Platelet Count - 162 k/mm3???RDW-SD - 49.1 femtoliters???MPV - 9.8 femtoliters???Nucleated RBC (Automated) - 0.0 #/100 WBC'S???Abs. NRBC - 0.0 k/mm3 Creatinine (03/04/2025) ???Creatinine-Blood - 1.73 mg/dL???Estimated GFR Creatinine - 30 ML/MIN/1.73 M2 Electrolytes (03/04/2025) ???Sodium - 138 mmol/L???Potassium - 5.3 mmol/L???Chloride - 107 mmol/L???Bicarbonate Level - 19 mmol/L???Anion Gap - 12 mmol/L GLUCOSE POC (03/03/2025) ???Glucose, POC - 120 mg/dL HOLD LAVENDER TUBE (03/05/2025) ???Hold Lavender Top - SPECIMEN DISCARDED AFTER 24 HOURS. MAGNESIUM (03/04/2025) ???Magnesium - 1.6 mg/dL PHOSPHORUS (03/04/2025) ???Phosphorus - 2.7 mg/dL POC Hemochron ACT-LR (03/04/2025) ???POC ACT-LR - 312.0 seconds Potassium Level (03/05/2025) ???Potassium - 4.9 mmol/L Troponin T, High Sensitivity (03/03/2025) ???High Sensitivity Troponin (HSTnT) - 62 ng/L Allergies (NKA means No Known Allergies) Cordran Tape Milk Products Motrin Percocet??Hives Wheat statins Problems Active Problems??(18) Acute hypoxic respiratory failure?? Bilateral carotid artery stenosis?? CHF exacerbation?? Chronic back pain?? CKD (chronic kidney disease)?? COPD (chronic obstructive pulmonary disease)?? GERD (gastroesophageal reflux disease)?? HLD (hyperlipidemia)?? HTN (hypertension)?? Hyperkalemia?? Hypothyroidism?? Moderate aortic valve stenosis?? Osteoarthritis?? Peripheral vascular disease?? Restless leg syndrome?? Tachycardia-bradycardia syndrome?? Type 2 diabetes mellitus?? Urinary incontinence?? Education Materials Below is the list of Educational Leaflet Providered with your Discharge Instructions. [employer] Ignite Patient Education - Cardiac Rehabilitation?? Valuables and Belongings I fully understand and agree that [facility] accepts no responsibility for all my personal property including clothing, toilet articles, radios, jewelry, dentures, hearing aids, rings, money, or any other property that is in my possession or is brought to me after admission. I understand certain valuables may be placed in a hospital safe for a short period of time. I understand that the hospital is not liable for loss or damage due to accident, fire, or other natural occurrence while said property is in the safe. I accept full responsibility for any personal property that I keep with me, and will not hold the hospital responsible in case of loss or disappearance. I acknowledge that i have been encouraged to send valuables and belongings home. ?? Review of Valuable and Belonging List: With patient Date for Pt to Sign Valuables/Belongings: 03/03/25 10:26:00 ?? Other Discharge Information ? Pulmonary Rehab Status?? Pulmonary Rehab Discharge Status?? Respiratory Rate: 20 br/min ? Cardiac Rehab Assessment?? Cardiac Rehab Inpatient Assessment?? Comments-Education: post procedure and home activty guidelines Comments-Smoking Cessation: patient referred to smoking cessation study Comments-Exercise Activity: increase activity as tolerated Comments-Nutrition: per RD Comments-Stress Management: healthy coping techniques Comments-Lipids: exercise, diet, medications per MD Comments-Other plan of care: refer to phase 2 cardiac rehab Common Emergency Awareness Tips IS IT A STROKE? Act FAST and Check for these signs: FACE Does the face look uneven? ARM Does one arm drift down? SPEECH Does their speech sound strange? TIME Call at any sign of stroke ?? Heart Attack Signs Chest discomfort: Most heart attacks involve discomfort in the center of the chest and lasts more than a few minutes, or goes away and comes back. It can feel like uncomfortable pressure, squeezing, fullness or pain. Discomfort in upper body: Symptoms can include pain or discomfort in one or both arms, back, neck, jaw or stomach. Shortness of breath: With or without discomfort. Other signs: Breaking out in a cold sweat, nausea, or lightheaded. Remember, MINUTES DO MATTER. If you experience any of these heart attack warning signs, call to get immediate medical attention! ?? Smoking can increase your chances of developing chronic health problems and can cause harmful effects to other family members in your house. If you smoke, you are strongly encouraged to quit. Please call [facility] [employer] Link at [phone] or [phone] ([phone]) or log in to [email or web address] for referrals to smoking cessation programs. ?? 010 Suicide & Crisis Lifeline is available 25/11 if you or someone you know needs to find a reason to keep living. By calling 150 you'll be connected to a skilled, trained counselor at a crisis center in your area. INPATIENT DISCHARGE INSTRUCTIONS SIGNATURE ARGENIS MUKHERJEE LEBRON Location:[facility] Registration Date and Time:03/03/2025 09:38 EDT Primary Care Physician: Jaylen Taylor NP, Attending Physician: Demian RASCON, Bong Garcias, I LEBRON MUKHERJEE, have received the above patient education materials/instructions and have verbalized understanding. If ambulance or transport services are being used I further acknowledge being given a choice of service. ?? If you need to contact me, please call me at this number: . Patient/Hvac Manager Name: Patient/Hvac Manager Signature: Relationship to Patient: Witness Name/Signature: Date: * Edinson Claudio: PERFORM, SIGN, VERIFY Event Display: Patient Education Handout Authored Date: [id number] * Edinson Claudio: PERFORM Event Display: Patient Education Leaflets Authored Date: [id number] Cardiac Rehabilitation ?? [id number] Cardiac Rehabilitation Cardiac rehabilitation (cardiac rehab) is a professionally supervised program designed by your healthcare team. It'll help you recover from your heart problem and??reduce your risk of future heart problems. You may be helped by cardiac rehab if you have certain heart conditions or certain heart procedures. These include: ??? Stable angina ??? Heart attack ??? Stable heart failure ??? Coronary artery bypass surgery ??? Heart valve surgery ??? Angioplasty with or without a stent ??? Heart-lung transplant Along with a tailored exercise program, cardiac rehab provides education and counseling to improve health. The cardiac rehab program includes: ??? An assessment of your health ??? Managing your risk factors such as high cholesterol, high blood pressure, and diabetes ??? Education on diet and medicines ??? Exercise training ??? Losing weight??? Quitting smoking ??? Emotional aspects such as stress, anxiety, or depression It's important to talk with your healthcare provider about the health benefits of enrolling in a cardiac rehab program. Your rehab program Your cardiac rehab program may start while you???re still in the hospital. After you leave the hospital, you may go to a facility for rehab classes. You???ll regain some strength and learn how to exercise safely. Once you do that, your healthcare provider may prescribe an exercise program for you to do at a gym or at home. ?? As an inpatient You may start light exercise within 2 days of entering the hospital once you have the healthcare provider's approval. Your activity may be limited based on the procedure you had, such as bypass surgery, valve replacement, coronary angioplasty, or coronary stenting. ?? As an outpatient As early as 1 to 2 weeks after leaving the hospital, you can join a supervised rehab program. Ask for a referral from your healthcare provider. Before leaving the hospital, your provider can provide contact and enrollment information. See if your healthcare team can get an appointment set up beforeyou're discharged home. ??? Exercises will be prescribed to help you build strength and movement. The first month will mostlikely include easier exercises. Over time, you???ll exercise harder to improve your endurance. ???Your heart, oxygen saturation,??and blood pressure may be watched as you work. ??? Cardiac rehab programs are tailored to meet your needs. Some people may take part in the program for 6 weeks, while others will do it for 6 months or longer. ??? Some people may not have access to a facility-based cardiac rehab. Home-based cardiac rehab is considered in some cases for some people. Virtual programs may also be available. Ask your healthcare provider if these are an option for you. ?? Maintain the benefits to your health Don???t stop once you???ve finished your program! Make what you learned in rehab a regular part of your life. Here are some tips: ??? Work out at home or at a gym. Try watching a new workout video each week. Take an exercise class. Find something that keeps you interested. ??? Ask family and friends to help you stay motivated. The healthy lifestyle changes can benefit them as well by partnering up and working out together. ??? Make other lifestyle changes to improve your heart and overall health. Quit smoking. Make changes to lower your stress. Lose excess weight. And lower your blood pressure and cholesterol. ??? It's important to keep an open conversation with your healthcare provider about your progress and goals. ?? Last Reviewed Date: 2023 00:00:00 ?? 5519-8500 [employer]. All rights reserved. This information is not intended as a substitute for professional medical care. Always follow your healthcare professional's instructions. ?? * Event Display: Lab Data & Pts Medical History Authored Date: EKG study * Event Display: ECG 12-Lead Authored Date: Please click on pdf link to open report * Event Display: ECG 12-Lead Authored Date: Ventricular Rate: 63 BPM Atrial Rate: 63 BPM P-R Interval: 142 ms QRS Duration: 86 ms Q-T Interval: 392 ms QTC Calculation(Bazett): 401 ms P Orange: 45 degrees R Orange: -48 degrees T Orange: -89 degrees Atrial-paced rhythm Left anterior fascicular block Left ventricular hypertrophy with repolarization abnormality ( R in aVL , Sokolow-Leslie ) Abnormal ECG When compared with ECG of 03-Mar-2025 10:06, Minimal criteria for Septal infarct are no longer Present T wave abnormality now present inferior leads Confirmed by KELLEY MOORE ([id number]) on 03/04/2025 10:50:42 AM [place]: KELLEY MOORE * Event Display: ECG 12-Lead Authored Date: Please click on pdf link to open report * Event Display: ECG 12-Lead Authored Date: Ventricular Rate: 72 BPM Atrial Rate: 72 BPM P-R Interval: 228 ms QRS Duration: 106 ms Q-T Interval: 398 ms QTC Calculation(Bazett): 435 ms P Orange: 67 degrees R Orange: -39 degrees T Orange: 113 degrees Atrial-paced rhythm with prolonged AV conduction Left axis deviation Left ventricular hypertrophy with repolarization abnormality Cannot rule out Septal infarct , age undetermined Abnormal ECG When compared with ECG of 01-Dec-2024 08:58, No significant change was found Confirmed by AUSTIN NUNEZ ([id number]) on 03/03/2025 2:43:40 PM [place]: AUSTIN NUNEZ [facility] Progress note * Benjamin Ortega RN: PERFORM, SIGN, VERIFY Event Display: Progress Note Hospital Authored Date: Patient: LEBRON MUKHERJEE Age: 79 years Sex: Female : 1945 Associated Diagnoses: None Author: Benjamin Ortega RN Findings Problem Related to Alteration in Cardiac Function (new) : Alteration in Cardiac Function/new 03/06/2025 11:00 EST Alteration in Cardiac Status Related to ACS, Cardiac Procedure Goals & Outcomes, Cardiac Status Pt will resume/maintain adequate cardiac output, Pt will resume/maintain adequate hemodynamic status, Pt will resume/maintain adequate respiratory function, Pt will resume/maintain intact neuro function, Pt will maintain adequate GI/ function appropriate for pt, Pt will maintain adequate nutrition status, Pt/caregiver will state understanding of diagnosis, Pt/caregiver will state strategies to reduce risk factors Cardiac Interventions Implemented Assess/monitor cardiac status, Assess/monitor neuro status, Assess/monitor respiratory status, Assess for tolerance of IV infusions; verify rate & dose, Call/Report variances in ECG to provider, Document & Monitor O2 Sats; Administer O2 as ordered, Ensure adequate caloric intake, If no bowel movement in 3 days activate bowel regime, Obtain 12 Lead ECG andCXR as ordered, Prep pt for treatments & procedures, Teach/encourage deep breath & cough exercises, Team conversation regarding appropriate level of care BH Goals/Interventions, Cardiac Yes Cardiac, Problem Start 03/03/2025 23:47 Reviewed Plan with, Cardiac Status Patient Patient Progression, Cardiac Status Patient progressing according to plan . Evaluation Pt alert and oriented x4. Pt has been Paced on the monitor. Denies CP, SOB, palpitations, lightheadedness, and dizziness. Awaiting discharge. Call macias within reach, able to make needs known. Bed in lowest locked position. . Electronically Signed on 03/06/25 11:04 AM Benjamin Ortega RN * Rachel NOLAN, Radha: VERIFY, PERFORM, SIGN Event Display: Progress Note Hospital Authored Date: Patient: LEBRON MUKHERJEE Age: 79 years Sex: Female : 1945 Associated Diagnoses: None Author: Radha Ramos RN Findings Problem Related to Alteration in Cardiac Function (new) : Alteration in Cardiac Function/new 03/06/2025 1:56 EDT Alteration in Cardiac Status Related to ACS, Cardiac Procedure Goals & Outcomes, Cardiac Status Pt will resume/maintain adequate cardiac output, Pt will resume/maintain adequate hemodynamic status, Pt will resume/maintain adequate respiratory function, Pt will resume/maintain intact neuro function, Pt will maintain adequate GI/ function appropriate for pt, Pt will maintain adequate nutrition status, Pt/caregiver will state understanding of diagnosis, Pt/caregiver will state strategies to reduce risk factors Cardiac Interventions Implemented Assess/monitor cardiac status, Assess/monitor neuro status, Assess/monitor respiratory status, Document & Monitor O2 Sats; Administer O2 as ordered, Teach/encourage deep breath & cough exercises BH Goals/Interventions, Cardiac Yes Cardiac, Problem Start 03/03/2025 23:47 Reviewed Plan with, Cardiac Status Patient Patient Progression, Cardiac Status Patient progressing according to plan . Nursing Data Vital Signs : VITAL SIGNS SECTION 03/05/2025 19:52 EDT Temperature 97.2 DegF Temperature Route Oral Pulse Rate 71 bpm Respiratory Rate 20 br/min Systolic Blood Pressure 121 mm Hg Diastolic Blood Pressure 42 mm Hg L Blood pressure sites Arm, left Oxygen Saturation 97 % Liters per Minute 2 L/min Mode of Delivery (Oxygen) Nasal cannula . Evaluation Patient is A&O x 4. Denies SOB or trouble breathing, on 2L and lungs dim upper fine crackles lower. Denies chest pain and palpitations. Heart rhythm A paced 70s. Independent with walker in room. Left femoral site slightly ecchymotic around DSD, right groin small spot of drainage and right radial all CDI, no oozing and soft to palpation. Right radial site has bruising up forearm, soft to palpate and pos pulses. Patient resting in bed with even rise and fall of chest. Please see biophysical/CIS for further details. Bed in lowest locked position, call macias within reach. . Electronically Signed on 03/06/25 01:10 AM Radha Ramos RN * Benjamin Ortega RN: PERFORM, MODIFY, MODIFY, MODIFY, SIGN, VERIFY, SIGN Event Display: Progress Note Hospital Authored Date: [id number] Patient: LEBRON MUKHERJEE Age: 79 years Sex: Female : 1945 Associated Diagnoses: None Author: Benjamin Ortega RN Findings Problem Related to Alteration in Cardiac Function (new) : Alteration in Cardiac Function/new 03/05/2025 14:00 EDT Alteration in Cardiac Status Related to ACS, Cardiac Procedure Goals & Outcomes, Cardiac Status Pt will resume/maintain adequate cardiac output, Pt will resume/maintain adequate hemodynamic status, Pt will resume/maintain adequate respiratory function, Pt will resume/maintain intact neuro function, Pt will maintain adequate GI/ function appropriate for pt, Pt will maintain adequate nutrition status, Pt/caregiver will state understanding of diagnosis, Pt/caregiver will state strategies to reduce risk factors Cardiac Interventions Implemented Assess/monitor cardiac status, Assess/monitor neuro status, Assess/monitor respiratory status, Assess for tolerance of IV infusions; verify rate & dose, Call/Report variances in ECG to provider, Document & Monitor O2 Sats; Administer O2 as ordered, Ensure adequate caloric intake, If no bowel movement in 3 days activate bowel regime, Monitor & document daily weight, Obtain 12 Lead ECG and CXR as ordered, Prep pt for treatments & procedures, Teach/encourage deep breath & cough exercises, Team conversation regarding appropriate level of care BH Goals/Interventions, Cardiac Yes Cardiac, Problem Start 03/03/2025 23:47 Reviewed Plan with, Cardiac Status Patient Patient Progression, Cardiac Status Patient progressing according to plan . Evaluation Pt alert and oriented x4. Pt has been A Paced 70s-80s on the monitor. Denies CP, SOB, palpitations,lightheadedness, and dizziness. Pt morning potassium was 5.3, Doctor Bong Arciniega notified and lokelma given with good effect. Repeat Potassium level 4.9. Bilateral groin sites from cardiac cath have DSD that is CDI, pulses and sensation distal to procedural site present. Right radial site is opento air, bruising noted up along forearm. Pulses and sensation distal to procedural site present. C/O 9/10 neck pain, managed well with PRN Tylenol and hot and cold packs. Able to ambulate independently in the room. Call macias within reach, able to make needs known. Bed in lowest locked position. . Electronically Signed on 03/05/25 03:46 PM Benjamin Ortega RN * Benjamin Ortega RN: PERFORM Event Display: Progress Note Hospital Authored Date: Plan was for d/c, manual BP taken before d/c and was 84/46. Doctor Bong Arciniega notified. Pt discharge discontinued for another night of monitoring and PO fluids were encouraged. Pt asymptomatic. Electronically Signed on 03/05/25 04:23 PM Benjamin Ortega RN Deprecated Cardiac rehabilitation treatment plan Progress note and attainment of goals (narrative) * Edinson Claudio: SIGN, VERIFY, PERFORM Event Display: Cardiac Rehab Note Authored Date: [id number] Patient: LEBRON MUKHERJEE Age: 79 years Sex: Female : 1945 Associated Diagnoses: None Author: Edinson Claudio Diagnosis Cardiac Rehab Diagnosis: s/p PCI ARNAUD to LCx and LM-LAD. Pre-exercise Vitals Vital Signs Comment: Reviewed in CIS. Pre-exercise Physical Examination Neurologic: alert & oriented, oriented to (time, person, place). Assistive Devices Assistive Device: None. 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 Education topic Teachback comprehension 75% Topic: Pathophysiology, Medication education, Role of exercise, Stress management, Home activity guidelines/limits. Reinforcement needed: Role of exercise. Recommendation and Plan Ambulate: 4-6 times/day. Patient may benefit from: All education with family present. Outpatient follow up recommended: [facility], emailed scheduling admin to set up appointment for patient at [facility], provided patient with flyer for program as well . Cardiac Rehab: Will sign off at this time. Recommendation comment: RN notified of plan. Electronically Signed on 03/05/25 10:25 AM Edinson Claudio * Maude Dickerson MA: PERFORM, SIGN, VERIFY Event Display: Cardiac Rehab Note Authored Date: [id number] Patient: LEBRON MUKHERJEE Age: 79 years Sex: Female : 1945 Associated Diagnoses: None Author: Maude Dickerson MA Reason for visit: Smoking Cessation Past Medical History: Ms. Mukherjee has a past medical history of coronary artery disease, chronic heart failure with preservedejection fraction, hypertension, hyperlipidemia, COPD, chronic kidney disease stage IV, and moderate aortic valve stenosis. She recently underwent an outpatient stress test which she failed, prompting referral for elective left heart catheterization today. The cardiology team is currently evaluating her for possible PCI/stenting. Discussion: Ms. Mukherjee was referred to our smoking cessation program from a member of her care team. She is motivated to quit smoking and knows it would benefit her to stop, but she has been smoking since she was 7years old and smoking cigarettes is all she has ever really known. The most she has smoked has krupa pack a day, but she has been cutting down throughout the years and rarely goes past 10 cigarettesa day. She mostly smokes between 5-7 depending on the day. Ms. Mukherjee also mentioned having her first cigarette within the first few hours of waking up and having it with her coffee. Throughout the day she would have her cigarette after her meals and then have her last cigarette at 6 PM. Based on her first cigarette and the amount of cigarettes she smokes, she would be considered low addiction to jocelynn otine. However, since she has been smoking for 70 years, she still might have higher nicotine dependence than usual. In the past she has tried quitting in the past, but her cravings were always too strong and she would become irritable and become angry quicker which she did not like so she would smoke. The longest she has been smoke free was 6 months and it was because of an operation that made her not want another cigarette until a stressful situation happened and she started to smoke again. At this point and time, she is willing to cutdown to 3 cigarettes and then eventually she would like to be smoke free completely. We discussed the nicotine patch and the gum and lozenges that she can use to help reduce the cravings and hopefully make her feel like herself instead of someone who is always angry. She was very receptive to the suggestions and seems to be onboard with the plan. I gave her my number and smokefree,gov as another source once she leaves the hospital that she can use on her smoke free journey. Assessment/Plan: For Ms. Mukherjee, she was very receptive to using 14 mg patch and a 2 mg gum and lozenge for this quit attempt. Although she smokes about 5-7 cigarettes daily, I would use a higher patch for her due to the anger and the irritability she experiences when she as tried to quit in the past. We discussed howto use the NRT's and she understands how to use them and seems willing to try them once she is home. She is also willing to wear a 14 mg patch while in the hospital to help her with the cravings. Electronically Signed on 03/03/25 04:48 PM Maude Dickerson MA Patient Care team information Care Team Personnel Name: Arash Simon RN Position: [facility] RN Supv Member Role: Primary Care Nurse Name: Saray Pittman RN Position: [facility] AMB Nurse Member Role: Primary Care Nurse Name: Shannan Maldonado RN Position: [facility] RN Member Role: Primary Care Nurse Name: Liz Lugo RN Position: [facility] RN Member Role: Primary Care Nurse Name: Kellen Landaverde RN Position: [facility] ED RN W/OE and Tasks Member Role: Primary Care Nurse Name: Myriam Brown RN Position: [facility] RN Member Role: Primary Care Nurse Name: Ally Augustin RN Position: [facility] RN Member Role: Primary Care Nurse Name: Liz Nicholson RN Position: [facility] RN Member Role: Primary Care Nurse Name: Radha Wallace RN Position: [facility] AMB Nurse Member Role: Primary Care Nurse Name: Yon Olmedo RN Position: S RN Member Role: Primary Care Nurse Name: Denise Matos RN Position: [facility] RN Member Role: Primary Care Nurse Name: Maude Roque RN Position: [facility] RN Member Role: Primary Care Nurse Name: Perry Block RN Position: [facility] RN Member Role: Primary Care Nurse Name: Jeaneth Sigala RN Position: [facility] RN Member Role: Primary Care Nurse Name: Joaquin Carrillo MD Position: [facility] Renal MD Member Role: Lifetime Consulting Physician Address: [address] [place] [address] [address] [facility] [address] Telecom: Name: Alysha Estevez RN Position: Kelly RN Member Role: Primary Care Nurse Name: Jaylen Taylor NP Position: Reference Physician Member Role: PCP Address: [address] [place] [id number] Telecom: Care Team Related Persons Name: MYRIAM MUKHERJEE Insurance Providers Guarantor name: [employer] Health Plan Information #: 1 [facility] Payer Identifier: [employer] Member Number: [id number] Group Number: [id number] Subscriber Identifier: [id number] Relationship to Subscriber: self Coverage Type: NA Coverage Verification Date: NA Telecom: NA Address:
[2025-03-07 12:52] VITALS: BP 120/72; PULSE 58; BMI 21.9
--- NOTE | 2025-03-07 12:52 | A.OFFVIS_ITS ---
Vital Signs 03/07/25 12:52 Height 5 ft 4 in Weight 127 lb 13.89 oz BMI 21.9 BP 120/72 Blood Pressure Location Lt brachial Position Sitting Pulse 58 Intake Visit Reasons: 2 mth fu after echo and nighat Intake Note: Follow-up after cardiac cath with 2 stents Fleet Administrative Assistant Required: No Allergies acetaminophen (From Percocet) Allergy (Intermediate, Verified 03/02/25 10:03) Itching oxycodone (From Percocet) Allergy (Intermediate, Verified 03/02/25 10:03) Itching Seasonal Allergies Allergy (Intermediate, Verified 03/02/25 10:03) Itchy Eyes ibuprofen (From Motrin) Allergy (Unknown, Verified 03/02/25 10:03) Swelling wheat Adverse Reaction (Unknown, Verified 03/02/25 10:03) Diarrhea lactose Adverse Reaction (Verified 03/02/25 10:03) Diarrhea Medication List - Last Reconciled 03/07/25 by Joseph Nicholas MD amlodipine 5 mg PO BID aspirin 81 mg PO DAILY atorvastatin 80 mg PO BEDTIME blzowgkgxw-iamohmrj-zpftlhpqit 160-9-4.8 mcg/actuation (Breztri Aerosphere) 2 inhalations inhalation BID cefpodoxime 200 mg PO BID cetirizine (Allergy Relief (cetirizine)) 10 mg PO DAILY cholecalciferol (vitamin D3) 50 mcg PO DAILY 90 days clopidogrel 75 mg PO DAILY 30 days cyanocobalamin (vitamin B-12) 1,000 mcg PO DAILY ezetimibe 10 mg PO DAILY famotidine 20 mg PO DAILY ferrous sulfate (Iron (ferrous sulfate)) 325 mg PO DAILY furosemide (Lasix) 20 mg PO DAILY gabapentin 600 mg PO BID hydrocortisone 1% 1 appl topical BID PRN ipratropium-albuterol 0.5 mg-3 mg(2.5 mg base)/3 mL 3 mL inhalation Q6H PRN levothyroxine 125 mcg PO DAILY 30 days metoprolol succinate ER 50 mg PO DAILY 30 days metoprolol succinate ER 25 mg PO DAILY 30 days nitrofurantoin monohyd/m-cryst 100 mg (Macrobid) 100 mg PO Q12H 5 days pramipexole 0.25 mg (2 x 0.125 mg) PO BEDTIME sertraline 100 mg PO DAILY 90 days HPI Comments Details: Pallavi comes for follow-up 3 days post PCI which was very complicated. Patient is 79-year-old female whom I had just seen last week and scheduled for an urgent cardiac catheterization. Patient has been admitted last year with pulmonary edema and subsequent stress test showed ischemia in the circumflex territory. She then underwent diagnose with cardiac catheterization which showed critical distal left main disease into bifurcation disease into both ostial LAD and ostial circumflex arteries with severe calcification. She was then seen by Cardiothoracic surgery and was felt not to be a surgical candidate due to her multiple risk factors including chronic kidney disease, heart failure, aortic stenosis, COPD. She subsequently underwent complicated bifurcation stenting of left main into LAD and circumflex with some compromise of the circumflex area although immediate post PCI outcome was felt to be adequate compared to pre PCI and she was sent home. She was also noted to be significantly hypertensive during diagnose the cardiac catheterization that had to be treated. She comes in today and a blood pressure is well optimized. She denies any chest pain. She has black and blue at the right radial site as well as the left groin site. [facility] Medical History Laboratory tests ordered as part of a complete physical exam (CPE) Screening for lung cancer Colon cancer screening Normal physical examination, routine Viral upper respiratory illness Cardiac pacemaker in situ Runny nose Smoking 1/2 pack a day or less SOB (shortness of breath) on exertion Smoking greater than 30 pack years Diarrhea Osteopenia Breast cancer screening Chronic diarrhea Skin tear of left upper arm without complication Aortic stenosis Restless leg syndrome No pertinent family history Hyperlipidemia Chronic back pain Osteoarthritis GERD (gastroesophageal reflux disease) Anxiety and depression Type 2 diabetes mellitus Hypertension CKD (chronic kidney disease) stage 3, GFR 30-59 ml/min Hypothyroidism Cataracts, bilateral COPD (chronic obstructive pulmonary disease) Deafness in right ear Stroke Surgical History History of esophagogastroduodenoscopy (EGD) H/O colonoscopy History of tonsillectomy History of appendectomy H/O: hysterectomy History of back surgery H/O thyroidectomy H/O endarterectomy S/P cardiac pacemaker procedure Family History Mother Bladder cancer Brother Bladder cancer Social History Household Members: Children Housing: House Do you presently have visiting nurse or other home services: No Alcohol intake: never Patient Tobacco Use Status: Current everyday Tobacco user Tobacco use type: Cigarette Cigarette Packs Per Day: 0.25 Cigarettes Per Day: 5 Years Smoked: 70 e-Cigarette/Vaping Use: Former Use Second Hand Smoke Exposure: No Substance Use Type: Marijuana service: No Current occupational status: retired Current occupational exposures/hazards: No Cognitive needs: No Hearing needs: No Vision needs: No Review of Systems Const Denies chills, Denies fatigue, Denies fever(s), Denies frequent falls, Denies weakness, Denies weight gain and Denies weight loss ENT Denies dizziness Card Denies chest pain, Denies leg edema, Denies lightheadedness, Denies palpitations, Denies dyspnea, Denies dyspnea on exertion, Denies orthopnea and Denies other (loss of consciousness) Resp Denies cough, Denies dyspnea and Denies dyspnea on exertion GI Denies hematochezia and Denies change in stool character Musc Denies abnormal gait, Denies muscle weakness, Denies numbness, Denies radiating pain into limb and Denies tingling Neuro Denies abnormal gait, Denies dizziness, Denies frequent falls, Denies numbness, Denies tingling and Denies weakness Endo Denies fatigue and Denies palpitations Physical Exam Vital Signs: Last Vital Signs Pulse 58 03/07/25 12:52 BP 120/72 03/07/25 12:52 BMI result Body Mass Index 21.9 Const General: cooperative, healthy appearing, comfortable and no acute distress Orientation/consciousness: patient oriented x3 Neck Neck: Yes normal visual inspection and Yes no JVD Resp Effort & Inspection: normal respiratory effort Auscultation: clear to auscultation bilaterally, no crackles, no rales, no rhonchi and wheezes Cardio Jugular venous distension: no JVD Rate: regular rate Rhythm: regular rhythm Heart sounds: S1 normal heart sound present, S2 normal heart sound present, Murmur heart sound present systolic mid, decrescendo, crescendo, harsh, IV/ and at the left sternal border and no rubs Skin General skin exam: ecchymosis Neuro General: patient oriented x3 Extrem General: Yes no clubbing, cyanosis or edema Psych Appearance: grossly normal Mental Status: mental status grossly normal Speech and movement: Normal speech and movement present Assessment & Plan Assessment & Plan (1) Stented coronary artery: Comment: Complicated bifurcation stenting of the left main into LAD as well as the circumflex artery with adequate results, 03/04/2025 for severe left main disease into ostial LAD and circumflex disease with heavy calcification Code(s): Z95.5 - Presence of coronary angioplasty implant and graft Category: Surgical Plan: Patient with complicated stenting of the left main into LAD and circumflex art maxwell for recurrent pulmonary edema with severe left main disease. She underwent a very and highly complicated PCI procedure and was not considered to be a surgical candidate. We discussed the pathophysiology of vascular disease and coronary artery disease and the complicated PCI she underwent. She should continue dual antiplatelet therapy uninterrupted for at least 12 months and MIBI longer given the nature of her PCI. Continue high-intensity statin therapy as well as ezetimibe therapy and advise follow-up lipid panel in 6 weeks. If LDL is still not optimized may consider PCSK9 inhibitor therapy at that point time. Blood pressure on today's exam is well optimized and her blood pressure elevation during procedure as most likely anxiety/stress driven. No change in his blood pressure therapy at this point time. Recommend phase 2 cardiac rehabilitation which she is already planned to add [facility]. Also suggest complete smoking cessation, she is very much more open to it. Will prescribe Chantix for the same. Follow up in the clinic in 6 weeks time, sooner PRN. Thank you for allowing me to partake in her care Orders: Orders Lipid Panel 6 Weeks I25.10 - Atherosclerotic heart disease of [place] coronary artery without angina pectoris Medications: New varenicline tartrate (Chantix) administer on days 4, 5, 6, and 7 of therapy 0.5 mg PO BID 60 tabs 1RF I25.10 - Atherosclerotic heart disease of [place] coronary artery without angina pectoris Coding Level of Care Code Est Pt Level 4 (78176) Complex EM visit Add On G2211 Diagnoses Stented coronary artery Z95.5
--- OUTSIDE RECORDS SUMMARY | 2025-03-07 16:17 | XMS_ITS | Encounter Summary ---
Author Organization [facility] Address [address] [facility] [address] [place] [address] Phone Care Team Providers Care Manager Commodities Name Role Phone Des Sanchez MD Primary Care Provider [phone] Encounter Details Date Type Department Care Team (Late st Contact Info) Description 01/05/2022 Procedure Pass [facility], Ct Scan - [address] [address] Social History Tobacco Use Types Packs/Day Years [...] 6:33 PM EDT Cici Burgos RN * [place] Suicide Severity Rating Scale (Screener/Recent Self-Report) Question [...] as of this encounter Care Teams Manager Commodities Relationship Specialty Start Date End Date Des Sanchez MD [address] [place] [address] PCP - General Internal Medicine 11/22/21 documented as of this encounter Additional Source Comments The information contained in this document represents components of the legal health record. It is not the complete legal health record.[facility]
--- OUTSIDE RECORDS SUMMARY | 2025-03-07 16:17 | XMS_ITS | Clinical Summary ---
Author Organization [facility] ity Address [address] [place] [address] Care Team Providers Care Supervisor Waterproofing Name Role Phone Landy Sutherland MD Primary Care Provider [phone] Surgical History Surgery Date Site/Laterality Comments OTHER SURGICAL HISTORY PROCEDURE: [place] LAMNOTMY INCL W/DCMPRSN NRV ROOT 1 INTRSPC LUMBR; COMMENT: 3 back operations CAROTID ENDARTERECTOMY 2000 PROCEDURE: HISTORICAL CAROTID ENDART; COMMENT: right VAGINAL DELIVERY PROCEDURE: CA VAGINAL DELIVERY ONLY; COMMENT: x2 ABDOMINAL SURGERY age 22 PROCEDURE: [place] UNLISTED PROCEDURE ABDOMEN PERITONEUM & OMENTUM; COMMENT: laparotomy with LSO for ruptured ectopic TONSILLECTOMY PROCEDURE: HISTORICAL TONSILLECTOMY Medical History Medical History Date Comments Esophageal reflux 03/01/2005 DX:Esophageal reflux Lumbago 03/01/2005 DX:Lumbago Thoracic aneurysm, ruptured ([facility] V24, [facility] V28) 11/12/2004 DX:Thoracic aneurysm, ruptur ed ([facility]) Peripheral vascular disease, unspecified ([facility] V24) 11/09/2004 DX:Peripheral vascular disea se, unspecified ([facility]) Other dyspnea and respirator y abnormality 11/09/2004 DX:Other dyspnea and respira tory abnormality Sciatica 09/12/2004 DX:Sciatica Sinoatrial node dysfunction ([facility] V24, [facility] V28) 01/19/2004 DX:Sinoatrial node dysfuncti on (FORMERLY [...] with ophthalmic manifestations, not stated as uncontrolled(250.50) ([facility] V24, [facility] V28) 07/15/2012 DX: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 Type II or unspecified type diabetes mellitus with renal manifestations, not stated as uncontrolled(250.40) ([facility] V24, [facility] V28) 08/07/2007 DX:Type II [...] loss Pacemaker DX:Pacemaker Peripheral vascular disease ([facility] V24) DX:Peripheral vascular disea se ([facility] [...] age to complete this topic Care Teams Supervisor Waterproofing Relationship Specialty Start Date End Date Landy Sutherland MD PCP - General 05/24/22
--- OUTSIDE RECORDS SUMMARY | 2025-03-07 16:17 | XMS_ITS | Continuity of Care Document ---
Author Organization [facility] [address] [place] [address] Phone [phone] Care Team Providers Care Assistant To The Ceo Name Role Phone Claudia York CNP Care Team Information Receive r [phone] Problems Active Problems Provider Date Osteoporosis Emanuel [...] Indications Ordering Provider Date Vitamin D (Ergocalciferol)1.25mg (34016 Ut) Capsules 1 tab by mouth every week 8caps Emanuel Cueva M.D. 06/20/2023 Lisinopril2.5mg Tablets Take 1 Tablet Orally Every Evening Unknown Clopidogrel Kdjwbphrt97rp Tablets Take 1 Tablet By Mouth Every Day Des Sanchez MD Amlodipine Ixaffzpd89dt Tablets Take 1 Tablet By Mouth Every Day Unknown Xetrzdvdlh459nv Tablets Take 1 Tablet By Mouth 2 Times A Day For 30 Days Claudia York CNP Ferrous Bskcnha527(65Fe) mg Tablets Take 1 Tablet By Mouth 1 Time Each Day With Breakfast. Unknown Pramipexole Dihydrochloride0.125mg Tablets Take 2 By Mouth Daily Des Sanchez MD Hyvdzjtnjg856gi Capsules Take 1 Capsule By Mouth Three Times A Day Unknown Sertraline QNN836uj Tablets Take 1 Tablet By Mouth Twice A Day Des Sanchez MD Metformin KFP663qy Tablets Take 1 Tablet By Mouth Twice A Day Des Sanchez MD Atorvastatin Ozcmzlc44rb Tablets Take 1 Tablet By Mouth Every Day Des Sanchez MD Levothyroxine Zjdxyw206brm Tablets Take 1 Tablet By Mouth Every Day Des Sanchez MD Vital Signs Date Vital Result Comment 06/16/2023 9:37am BP Systolic 110 mmHg BP Diastolic 70 mmHg Heart Rate 72 /min Height 64 inches 5'4 Weight 128.12 lb BMI (Body Mass Index) 22.0 kg/m2 Results Test Acquired Date Facility Test Result H/L Range N ote Basic Metabolic Panel 06/16/2023 [facility] Glucose 102 mg/dL High (70-99) BUN 24 mg/dL High (8-23) Creatinine 1.3 mg/dL High (0.5-1.0) Sodium 140 mmol/L (133-145) Potassium 5.2 mmol/L (3.6-5.2) Chloride 105 mmol/L (98-107) Bicarbonate 20 mmol/L Low (22-29) Anion Gap 15 (4-17) Calcium 10.4 mg/dL (8.6-10.5 ) Estimated GFR Creatinine 41 ML/MIN/1.7 3M2 1 25Oh Vitamin D 06/16/2023 [facility] 25Oh Vitamin D 14.9 NG/ML Low (20-50) Albumin 06/16/2023 [facility] Albumin 4.6 GM/DL (3.4-4.8) PTH, Intact 06/16/2023 [facility] PTH, Intact 102 pg/mL High (15-65) Phosphorus 06/16/2023 [facility] Phosphorus 3.6 mg/dL (2.5-4.5) 1 [...] E11.9 Type 2 diabetes mellitus* New Labs:* Ketlqgr-Vs-Gxtlg, Ordered: 06/16/23 * Creat Clearance, Ordered: 06/16/23 * N-Telopeptide Cross Links, Urine, Ordered: 06/16/23 Functional Status Description No Information Available Mental Status Description No Information Available Referrals Description No Information Available
--- OUTSIDE RECORDS SUMMARY | 2025-03-07 16:17 | XMS_ITS | Encounter Summary ---
Author Organization [facility] Address [address] [facility] [address] [place] [address] Phone Care Team Providers Care Forensic Science Examiner Name Role Phone Des Sanchez MD Primary Care Provider [phone]- [phone] Encounter Details Date Type Department Care Team (Late st Contact Info) Description 01/05/2022 Procedure Pass [facility], Ct Scan - [address] [address] Social History Tobacco Use Types Packs/Day Years [...] 6:33 PM EDT Cici Burgos RN * [place] Suicide Severity Rating Scale (Screener/Recent Self-Report) Question [...] documented as of this encounter Care Teams Forensic Science Examiner Relationship Specialty Start Date End Date Des Sanchez MD [address] [place] [address] PCP - General Internal Medicine 11/22/21 documented as of this encounter Additional Source Comments The information contained in this document represents components of the legal health record. It is not the complete legal health record.[facility]
--- OUTSIDE RECORDS SUMMARY | 2025-03-07 16:17 | XMS_ITS | Encounter Summary ---
Author Organization [facility] Address [address] [facility] [address] [place] [address] Phone Care Team Providers Care Jewelry Casting Model Maker Apprentice Name Role Phone Des Sanchez MD Primary Care Provider [phone]- [phone] Encounter Details Date Type Department Care Team (Late st Contact Info) Description 01/05/2022 Procedure Pass [facility], Ct Scan - [address] [address] Social History Tobacco Use Types Packs/Day Years [...] 6:33 PM EDT Cici Burgos RN * [place] Suicide Severity Rating Scale (Screener/Recent Self-Report) Question [...] documented as of this encounter Care Teams Jewelry Casting Model Maker Apprentice Relationship Specialty Start Date End Date Des Sanchez MD [address] [place] [address] PCP - General Internal Medicine 11/22/21 documented as of this encounter Additional Source Comments The information contained in this document represents components of the legal health record. It is not the complete legal health record.[facility]
--- OUTSIDE RECORDS SUMMARY | 2025-03-07 16:17 | XMS_ITS | Clinical Summary ---
Author Organization [facility] Address [address] [id number] Phone Care Team Providers Care Director Of Food And Beverage Services Name Role Phone Des Sanchez MD Primary Care Provider [phone] Allergies Active Allergy Reactions Criticality Noted Date [...] INFLUENZA VACCINE (#1) 2024 COVID-19 VACCINE ( - season) 2025 Adult Td,Tdap Booster 11/23/2031 11/22/2021 [...] Date/Time Associated Diagnosis Comments BASIC METABOLIC PANEL (BMP) Routine 01/07/2022 6:04 AM EDT HEMOGLOBIN A1C Routine 01/06/2022 7:07 AM EDT TSH WITH REFLEX Routine 01/06/2022 7:07 AM EDT from Last 3 Months or Most Recently Relevant to Health Maintenance Results * (ABNORMAL) Basic metabolic panel (01/07/2022 6:04 AM EDT) SODIUM 138 133 - 146 mmol/L [facility] CHLORIDE 107 96 - 108 mmol/L [facility] POTASSIUM 4.3 3.3 - 5.1 mmol/L [facility] CO2 24 21 - 35 mmol/L [facility] BUN 14 6 - 19 mg/dL [facility] CREATININE 1.20 0.5 - 1.5 mg/dL [facility] GLUCOSE 242(H) 70 - 99 mg/dL [facility] CALCIUM 9.7 8.4 - 10.3 mg/dL [facility] EGFR 47(L) >59 mL/min/1.7 3m2 [facility] Comment:Estimated glomerular filtration rate calculated using the CKD-EPI refit equation. ANION GAP 11 10 - 20 mmol/L [facility] Blood 01/07/2022 6:04 AM EDT 01/07/2022 6:21 AM EDT us Zahida Gonzalez MD LAB BLOOD BKR ORDERABLES Fi nal Result [address] [address] * TSH with reflex (01/06/2022 7:07 AM EDT) TSH 3.46 0.27 - 4.20 uIU/mL [facility] Blood 01/06/2022 7:07 AM EDT 01/06/2022 7:29 AM EDT us Elmer Ricks MD LAB BLOOD BKR ORDERABLES Final Result Performing Organization Address City/[facility]/ZIP Co de Phone Number [address] [address] * Hemoglobin A1c (01/06/2022 7:07 AM EDT) HEMOGLOBIN A1C 5.6 4.3 - 5.8 % [facility] 01/06/2022 7:07 AM EDT 01/06/2022 7:29 AM EDT Elmer Ricks MD LAB BLOOD BKR ORDERABLES Final Result [facility] [address] [place] [address] from Last 3 Months or Most Recently Relevant to Health Maintenance Insurance [facility] AETNA PPO MEDICARE REPLACEMENT AETNA PPO MEDICARE REPLACEMENT AET[employer] PPO MEDICARE REPLACEMENT A[employer] PPO MEDICARE REPLACEMENT AET[employer] PPO MEDICARE REPLACEMENT AETNA O MEDICARE REPLACEMENT AETNA O MEDICARE REPLACEMENT Advance Directives For more information, please contact: [phone] (9AM - 5PM [facility], Friday-Friday) * Full Code (Latest Code Status on File) Date Activated Date Inactivated Comments 01/05/2022 10:22 PM Question Answer Comments Code Status Confirmed With: Patient Code Status Communicated To: Inpatient Attending Care Teams Director Of Food And Beverage Services Relationship Specialty Start Date End Date Des Sanchez MD [address] [place] [id number] PCP - General Internal Medicine 11/22/21 Additional Source Comments The information contained in this document represents components of the legal health record. It is not the complete legal health record.[facility]
--- OUTSIDE RECORDS SUMMARY | 2025-03-07 16:17 | XMS_ITS | Clinical Summary ---
Author Organization [facility] Address [address] [place] [phone] Phone Care Team Providers Care Public Relations Representative Name Role Phone Jaylen Taylor JEB Primary Care Provider [phone] Allergies Active Allergy Reactions Criticality Noted Date [...] by mouth every night Active aspirin (ST JUAINS) 81 MG EC tablet Take 81 mg [...] Office Visit [facility] [address] [place] [phone] [place] [address] [place] [phone] Health Maintenance Due Date Last Done [...] Most Recently Relevant to Health Maintenance Insurance [facility] Medicare [facility] [place] [address] Care Teams Public Relations Representative Relationship Specialty Start Date End Date Jaylen Taylor CNP [address] [place] [address] PCP - General 04/04/23
--- OUTSIDE RECORDS SUMMARY | 2025-03-07 16:17 | XMS_ITS | Encounter Summary ---
Author Organization [facility] Address [address] [facility] [address] [place] [phone] Phone Care Team Providers Care Thin Film Technician Name Role Phone Des Sanchez MD Primary Care Provider [phone] Encounter Details Date Type Department Care Team (Late st Contact Info) Description 01/05/2022 Procedure Pass [facility], Ct Scan - [address] [address] Social History Tobacco Use Types Packs/Day Years [...] 6:33 PM EDT Cici Burgos RN * [place] Suicide Severity Rating Scale (Screener/Recent Self-Report) Question [...] documented as of this encounter Care Teams Thin Film Technician Relationship Specialty Start Date End Date Des Sanchez MD [address] [place] [address] PCP - General Internal Medicine 11/22/21 documented as of this encounter Additional Source Comments The information contained in this document represents components of the legal health record. It is not the complete legal health record.[facility]
--- OUTSIDE RECORDS SUMMARY | 2025-03-07 16:17 | XMS_ITS | Encounter Summary ---
Author Organization [facility] Address [address] [place] [address] Phone Care Team Providers Care Perinatal Educator Name Role Phone Jaylen Taylor CNP Primary Care Provider [phone] Encounter Details Date Type Department Care Team (Late st Contact Info) Description 04/22/2022 Telephone [facility] [address] [place] [address] Ilir Roca MD Social History [...] thank you, order was faxed over to [facility] * Telephone Encounter [...] Visit [facility] [address] [place] [phone] Elia Winters MD [address] [phone] documented as of this encounter Visit Diagnoses Not on filedocumented in this encounter Care Teams Perinatal Educator Relationship Specialty Start Date End Date Jaylen Taylor CNP [address] [place] [address] PCP - General 04/04/23 documented as of this encounter
--- OUTSIDE RECORDS SUMMARY | 2025-03-07 16:17 | XMS_ITS | Encounter Summary ---
Author Organization [facility] Address [address] [facility] [address] [place] [address] Phone Care Team Providers Care Retoucher Photoengraving Name Role Phone Des Sanchez MD Primary Care Provider [phone] Encounter Details Date Type Department Care Team (Late st Contact Info) Description 01/05/2022 Procedure Pass [facility], Ct Scan - [address] [address] Social History Tobacco Use Types Packs/Day Years [...] 6:33 PM EDT Cici Burgos RN * [place] Suicide Severity Rating Scale (Screener/Recent Self-Report) Question [...] documented as of this encounter Care Teams Retoucher Photoengraving Relationship Specialty Start Date End Date Des Sanchez MD [address] [place] [address] PCP - General Internal Medicine 11/22/21 documented as of this encounter Additional Source Comments The information contained in this document represents components of the legal health record. It is not the complete legal health record.[facility]
--- OUTSIDE RECORDS SUMMARY | 2025-03-07 16:17 | XMS_ITS | Patient Health Record ---
Author Organization [facility] Address [address] [place] [address] Care Team Providers Care Cook Boat Name Role Phone Oscar Alicia MD Primary Care Provider Prashant Sibley Unavailable [phone] Allergies Allergen (clinical drug ingredient) Drug/Non Drug [...] confirmed Problem Information temporarily unavailable Atherosclerosis of [place] arteries of extremities with intermittent claudication, bilateral [...] Coverage End Date [facility] [address] [facility] [address] [place] [address] [id number] Pallavi Mukherjee Self - patient is the [...]
== END 2025-03-07 13:12 | disposition home or self-care (01) ==
LOC: HO.HCS 12:50
PROVIDERS: PCP Nurse Practitioner Family; Visit Provider Internal Medicine Cardiovascular Disease
DX: Z95.5 Presence of coronary angioplasty implant and graft (principal)
CPT/HCPCS: 99214; G2211

== ENCOUNTER → 2025-03-07 12:49 | Outpatient (BNVA) | payer MEDICARE, SELFPAY | PROVIDERS: PCP Nurse Practitioner Family; Visit Provider Internal Medicine Cardiovascular Disease | DX: I25.10 Atherosclerotic heart disease of native coronary artery without angina pectoris (principal); Z95.5 Presence of coronary angioplasty implant and graft | CPT/HCPCS: 99212 ==

== ENCOUNTER 2025-03-18 09:12 | Outpatient (REF) | payer MEDICARE, SELFPAY ==
[2025-03-18 14:39] LABS: Cholesterol 175 mg/dL (<200); HDL Cholesterol 49 mg/dL (>40); Triglycerides 135 mg/dL (<150)
[2025-03-18 15:30] LABS: Free T4 (Free Thyroxine) 1.05 ng/dL (0.71-1.85)
[2025-03-18 18:23] LABS: Appearance Urine Clear; Glucose Urine UA Negative (Negative); PH 5.5 (5.0-9.0); Specific Gravity - Urine 1.015 (1.005-1.025); UMIC TRIGGER UACC YES
== END 2025-03-18 09:13 | disposition home or self-care (01) ==
LOC: HO.WFDLDS 09:12
PROVIDERS: PCP Nurse Practitioner Family; Referring Provider Internal Medicine Cardiovascular Disease; Visit Provider Nurse Practitioner Family
DX: Z00.00 Encounter for general adult medical examination without abnormal findings (principal); I25.10 Atherosclerotic heart disease of native coronary artery without angina pectoris; E03.9 Hypothyroidism, unspecified; I10 Essential (primary) hypertension; E55.9 Vitamin D deficiency, unspecified; R80.9 Proteinuria, unspecified; F32.A Depression, unspecified; G47.9 Sleep disorder, unspecified; F17.210 Nicotine dependence, cigarettes, uncomplicated; M81.0 Age-related osteoporosis without current pathological fracture
CPT/HCPCS: 36415; 80061; 81001; 84439; 84443; 96127; 99212; 99397

== ENCOUNTER 2025-03-18 09:12 | Outpatient (AMB) | payer MEDICARE, SELFPAY ==
--- NOTE | 2025-03-18 09:13 | A.OFFPC_ITS ---
Vital Signs 03/18/25 09:21 03/18/25 10:02 Height 5 ft 4 in Weight 128 lb 8 oz BMI 22.1 BP 183/77 H 160/70 H Blood Pressure Location Rt brachial Lt brachial Position Sitting Sitting Respiration 16 Pulse 72 76 Pulse Source Pulse Oximeter Auscultation Temp 97.4 F Temp Source Oral Pulse Oximetry (%) 99 Oxygen Delivery Method Room Air Intake Visit Reasons: 1 mos CPE, HTN Intake Note: patient here for CPE and HTN follow up Sight Effects Specialist Required: No Is last menstrual period known: No Post menopausal: No Patient : No Allergies acetaminophen (From Percocet) Allergy (Intermediate, Verified 03/18/25 09:49) Itching oxycodone (From Percocet) Allergy (Intermediate, Verified 03/18/25 09:49) Itching Seasonal Allergies Allergy (Intermediate, Verified 03/18/25 09:49) Itchy Eyes ibuprofen (From Motrin) Allergy (Unknown, Verified 03/18/25 09:49) Swelling wheat Adverse Reaction (Unknown, Verified 03/18/25 09:49) Diarrhea lactose Adverse Reaction (Verified 03/18/25 09:49) Diarrhea Medication List - Last Reconciled 03/18/25 by Jaylen Taylor CNP amlodipine 5 mg PO BID aspirin 81 mg PO DAILY atorvastatin 80 mg PO BEDTIME driyffcsaf-uwmexydx-tvuxtmqiws 160-9-4.8 mcg/actuation (Breztri Aerosphere) 2 inhalations inhalation BID cefpodoxime 200 mg PO BID cetirizine (Allergy Relief (cetirizine)) 10 mg PO DAILY cholecalciferol (vitamin D3) 50 mcg PO DAILY 90 days clopidogrel 75 mg PO DAILY 30 days cyanocobalamin (vitamin B-12) 1,000 mcg PO DAILY ezetimibe 10 mg PO DAILY famotidine 20 mg PO DAILY ferrous sulfate (Iron (ferrous sulfate)) 325 mg PO DAILY furosemide (Lasix) 20 mg PO DAILY gabapentin 600 mg PO BID hydrocortisone 1% 1 appl topical BID PRN ipratropium-albuterol 0.5 mg-3 mg(2.5 mg base)/3 mL 3 mL inhalation Q6H PRN levothyroxine 125 mcg PO DAILY 30 days metoprolol succinate ER 50 mg PO DAILY 30 days metoprolol succinate ER 25 mg PO DAILY 30 days pramipexole 0.25 mg (2 x 0.125 mg) PO BEDTIME sertraline 100 mg PO DAILY 90 days varenicline tartrate (Chantix) 0.5 mg PO BID Tobacco use date assessed: 03/18/25 Fall risk assessment: No Falls in past year Last assessed Fall Risk: 03/18/25 Dental Screening Dental Screen Date: 03/18/25 Did you have a dental visit in the last 12 months?: No Did you have a dental problem in the last 6 months where you did not have access to dental care?: No Was dental information given to patient?: No HPI HPI Comments History of Present Illness Details 79-year-old female presents for an exten ded physical exam and review of recent lab results. She admits to taking her medications as prescribed without adverse reactions. She notes that she has been experiencing low energy, loss of interest in doing things, and having no desire to leave the house for the past 6 months. She reports passive SI, wishing she is no longer her life. She denies active SI. She denies HI or AVH. 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 Social History - Smokes 10 cigarettes daily, has been s moking since 7 y/o. Does not vape. Does not drink alcohol. Smokes and consumes cannabis gummies 5 days weekly - Has been making healthy dietary choice s. Exercises routinely. Difficulty staying asleep, wakes up 3-4 times during the night, sleeps about 6 hours, feels tired all the time. Does not take medication for sleep. Had normal sleep study with [facility] in 09/01/2024 Health maintenance - Last eye exam was with Zechariah bledsoe. Encouraged to sign a release for her PCP to obtain her ophthalmology record - Last dental visit was 5 years ago; enc ouraged to schedule an appointment with his dentist for routine dental care - Last Tdap was in 12/2022 - She notes that she is up-to-date on shingles and pneumonia vaccines - She notes that she was vaccinated for the flu a month ago - She no longer performs Pap smear - Last mammogram was 3 years ago. Mammog gerald ordered - Last colonoscopy was in 2021: normal. Declines colonoscopy - Last dexa scan was in 02/26/2023: Ost eoporosis. DEXA scan ordered. Referred to [facility] endocrinology Specialists - [facility] cardiology, gastroenterology, pulm onology - Dr. New, [facility] Nephrology [facility] Medical History Laboratory tests ordered as part of a complete physical exam (CPE) Screening for lung cancer Colon cancer screening Normal physical examination, routine Viral upper respiratory illness Cardiac pacemaker in situ Runny nose Smoking 1/2 pack a day or less SOB (shortness of breath) on exertion Smoking greater than 30 pack years Diarrhea Osteopenia Breast cancer screening Chronic diarrhea Skin tear of left upper arm without complication Aortic stenosis Restless leg syndrome No pertinent family history Hyperlipidemia Chronic back pain Osteoarthritis GERD (gastroesophageal reflux disease) Anxiety and depression Type 2 diabetes mellitus Hypertension CKD (chronic kidney disease) stage 3, GFR 30-59 ml/min Hypothyroidism Cataracts, bilateral COPD (chronic obstructive pulmonary disease) Deafness in right ear Stroke Surgical History History of esophagogastroduodenoscopy (EGD) H/O colonoscopy History of tonsillectomy History of appendectomy H/O: hysterectomy History of back surgery H/O thyroidectomy H/O endarterectomy S/P cardiac pacemaker procedure Family History Mother Bladder cancer Brother Bladder cancer Social History Household Members: Children Housing: House Do you presently have visiting nurse or other home services: No Alcohol intake: never Patient Tobacco Use Status: Current everyday Tobacco user Tobacco use type: Cigarette Cigarette Packs Per Day: 0.25 Cigarettes Per Day: 5 Years Smoked: 70 e-Cigarette/Vaping Use: Former Use Second Hand Smoke Exposure: No Substance Use Type: Marijuana service: No Current occupational status: retired Current occupational exposures/hazards: No Cognitive needs: No Hearing needs: No Vision needs: No Questionnaire PHQ-9 Over the last 2 weeks, how often have you been bothered by any of the following problems? 1. Little interest or pleasure in doing things: more than half the days 2. Feeling down, depressed, or hopeless: several days 3. Trouble falling or staying asleep, or sleeping too much: more than half the days 4. Feeling tired or having little energy: more than half the days 5. Poor appetite or overeating: more than half the days 6. Feeling bad about yourself - or that you are a failure or have let yourself or your family down: not at all 7. Trouble concentrating on things, such as reading the newspaper or watching television: several days 8. Moving or speaking so slowly that other people could have noticed. Or the opposite - being so fidgety or restless that you have been moving around a lot more than usual: not at all 9. Thoughts that you would be better off or of hurting yourself in some way: several days Total score: 11 Depression Screening Interpretation: Positive Depression Screening Follow-up: Existing condition, In treatment and Change in Medication Depression Screening Done: Yes 83851 - PHQ-9 Billing: Yes Source: Developed by Drs. Bonifacio Bethea, Danni Villa, Rico Wilcox and colleagues, with an educational saranya from [employer]. Thrive Questionnaire Date Thrive assessed: 03/18/25 I am a: Patient What is your living situation today?: I have a steady place to live Within the past 12 months, did the food you bought not last and you didn't have the money to get more?: Never true Within the past 12 months, did you worry whether your food would run out before you got money to buy more?: Never true Do you have trouble paying for medicines?: Yes Do you have trouble getting transportation to medical appointments?: No Do you have trouble paying your heating and electricity bill?: No Do you have trouble taking care of your child, family member or friend?: No Do you have trouble with day-to-day activities such as bathing, preparing meals, shopping, managing finances, etc.?: Yes Are you currently unemployed and looking for a job?: No Are you interested in more education?: No Please select the resources that you would like help with: Paying for medicine and Daily support Currently or been in a relationship where the following occur: No concerns reported THRIVE Score: 0 AUDIT C Alcohol Use Questionnaire (AUDIT-C) 1. How often do you have a drink containing alcohol?: Never 3. How often do you have six or more drinks on one occasion?: Never Total Score: 0 Score Reviewed/Action Taken: Yes MARCELA-7 AMB Questionnaire MARCELA-7 Date MARCELA - 7 assessed: 03/18/25 Feeling nervous, anxious, or on edge: 1 = Several days Not being able to stop or control worryin = Not at all Worrying too much about different things: 1 = Several days Trouble relaxin = More than half the days Being so restless that it is hard to sit still: 1 = Several days Becoming easily annoyed or irritable: 0 = Not at all Feeling afraid as if something awful might happen: 0 = Not at all Total MARCELA-7 score (0-4 normal; 5-9 mild; 10-14 moderate; 15-21 severe): 5 Source: Developed by Drs. Bonifacio Bethea, Danni Villa, Rico Wilcox and colleagues, with an educational saranya from [employer]. MARCELA-7 Assessment Billing MARCELA-7 Assessment Tool: MARCELA-7 Assessment 00702 Review of Systems Const Details: Denies chills, Reports fatigue, Denies fever(s), Denies headache(s) and Denies weakness HEENT Denies change in vision, Denies dizziness, Denies headache(s), Denies hearing loss, Denies nasal congestion, Denies sinus pain, Denies sinus pressure and Denies sore throat Card Denies chest pain, Denies lightheadedness, Denies dyspnea and Denies other (palpitations) Resp Denies cough, Denies dyspnea and Denies wheezing GI Denies abdominal pain, Denies melena, Denies hematochezia, Denies change in bowel habits, Denies dyspepsia and Denies nausea Denies hematuria and Denies dysuria Musc Denies abnormal gait, Denies myalgias, Denies arthralgias, Denies numbness and Denies tingling Skin/Breast Denies rash, Denies unusual bruising and Denies wounds Neuro Denies abnormal gait, Denies dizziness, Denies headache(s), Denies memory loss, Denies numbness, Denies Sensory deficit (Neuro), Denies tingling and Denies weakness Psych Denies anxiety, Reports depression and Denies memory loss Endo Denies cold intolerance, Reports fatigue, Denies heat intolerance, Denies polydipsia and Denies polyuria Arnold/Lymph Denies easy bleeding and Denies easy bruising Aller/Immun Denies wheezing Physical exam (Primary Care) Vital Signs: Last Vital Signs Temp 97.4 F 03/18/25 09:21 Pulse 76 03/18/25 10:02 Resp 16 03/18/25 09:21 BP 160/70 H 03/18/25 10:02 Pulse Ox 99 03/18/25 09:21 Oxygen Delivery Method Room Air 03/18/25 09:21 BMI result Body Mass Index 22.1 Tobacco/Smoking Status: Tobacco use Status Tobacco use date assessed 03/18/25 03/18/25 09:25 Patient Tobacco Use Status Current everyday Tobacco 03/18/25 09:16 Tobacco use type Cigarette 03/18/25 09:16 e-Cigarette/Vaping Use Former Use 03/18/25 09:16 PHQ-9: PHQ-9 Score PHQ-9: Total score 11 03/18/25 14:47 Depression Screening Interpretation: Positive Depression Screening Follow-up: Existing condition, In treatment and Change in Medication Thrive Assessment: Date of Thrive Assessment Date Thrive assessed 03/18/25 03/18/25 09:35 Currently or been in a relationship where the following occur: No concerns reported Const Other: General: no acute distress, well developed, alert and awake Nutritional Appearance: well nourished Orientation/consciousness: patient oriented x3 HENMT Head: Yes normocephalic and Yes atraumatic Ears: hearing grossly normal bilaterally and TM's normal bilaterally General nose exam: Normal external nose present and Normal nares present Mouth: Normal oral and palatal mucosa present and moist mucous membranes Teeth and gingiva: dentition normal Throat: Yes oropharynx normal Eyes Pupils: Equal, round and reactive pupils present and Pupil accommodation reflex normal EOM: EOMs intact bilaterally Neck Neck: Yes normal visual inspection, Yes no lymphadenopathy and Yes trachea midline Thyroid: Thyroid normal Carotids: no bruits Lymphatic: no lymphadenopathy noted Chest Chest palpation & inspection: normal inspection of the chest Resp Effort & Inspection: normal respiratory effort Auscultation: clear to auscultation bilaterally Cardio Rate: regular rate Rhythm: regular rhythm Heart sounds: S1 normal heart sound present, S2 normal heart sound present, no gallops, +murmurs and no rubs Bruits: no abdominal aortic bruits and no carotid bruits GI Palpation (GI): No Abdominal aortic bruit present, Soft to palpation, nontender, No hepatosplenomegaly present and No Rebound tenderness present Auscultation: normal bowel sounds General: Yes no CVA tenderness Back/Spine/Pelvis Back: no CVA tenderness Cervical Spine: cervical ROM normal and No Cervical spine tenderness Thoracic/Lumbar Spine: thoraco-lumbar ROM normal, No pain with thoraco-lumbar ROM, No thoracic spinal tenderness and No lumbar spinal tenderness Skin General: warm and dry. Normal skin color. Normal skin turgor Lesions: no lesions Rashes: no rashes Trauma: no lacerations or abrasions Wounds: no wounds Nails: normal Neuro General: patient oriented x3, gait normal and CN's II-XI intact bilaterally Cranial nerves: Yes Equal, round and reactive pupils present Cognition (Neuro): normal cognition Gait exam (Neuro): Normal gait present Motor exam (neuro): 5/5 motor strength present throughout Sensory Exam: No Sensory deficit (Neuro) Deep tendon reflexes (DTR's): Right patellar reflex intensity grade: 2+ and Left patellar reflex intensity grade: 2+ Extrem General: Yes normal to inspection, No edema and No calf tenderness Psych Appearance: grossly normal Affect: Constricted Attitude: cooperative Thought process: Normal thought process present Coding Level of Care Code Est Pt Level 4 (29850) Est Pt Prev Care >65y(07386) Diagnoses Normal physical examination, routine Z00.00 Primary hypertension I10 Hypertension type: primary hypertension Hypothyroidism, unspecified type E03.9 Hypothyroidism type: unspecified Vitamin D deficiency E55.9 Proteinuria R80.9 Microalbuminuria R80.9 Depression F32.A Sleep disturbance G47.9 Smoking 1/2 pack a day or less F17.210 Osteoporosis M81.0 Additional Codes MARCELA-7 Assessment Billing - MARCELA-7 Assessment Tool: MARCELA-7 Assessment 21534 ([id number]) PHQ-9 - 82523 - PHQ-9 Billing: Yes ([id number]) Assessment & Plan Assessment & Plan (1) Normal physical examination, routine: Code(s): Z00.00 - Encounter for general adult medical examination without abnormal findings Category: Medical Plan: No significant functional limitations noted. Continue current treatment and treatment. Healthy diet and routine exercise encouraged. Follow-up in 1 week for hypertension, depression, and sleep disturbance. Return sooner with symptoms or concerns. Verbalized understanding and agreed with the plan. (2) Hypertension: Code(s): I10 - Essential (primary) hypertension Category: Medical Qualifiers: Hypertension type: primary hypertension Qualified Code(s): I10 - Essential (primary) hypertension Plan: Resting blood pressure is 160/70, above goal of less than 130/80. Hydrochlorothiazide 12.5 mg daily ordered; advised to take as prescribed. Instructed on the risks, benefits, and potential adverse reactions of the medication. Continue current treatment regimen. Low-sodium diet encouraged. Follow-up in 1 week. Verbalized understanding and agreed with the plan. (3) Hypothyroidism: Code(s): E03.9 - Hypothyroidism, unspecified Category: Medical Qualifiers: Hypothyroidism type: unspecified Qualified Code(s): E03.9 - Hypothyroidism, unspecified Plan: Recent TSH is slightly elevated, 4.78, free T4 is normal. Continue current treatment regimen. Will recheck TSH/T4 today and make changes as needed. Verbalized understanding and agreed with the plan. (4) Vitamin D deficiency: Code(s): E55.9 - Vitamin D deficiency, unspecified Category: Medical Plan: Recent vitamin D3 is low, 16.7, previous level was 13.5. Will increase vitamin D3 to 75 mcg daily; advised to take as prescribed. Will recheck vitamin-D level in 6-8 weeks. Verbalized understanding and agreed with the plan. (5) Proteinuria: Code(s): R80.9 - Proteinuria, unspecified Category: Medical Plan: Recent urine test revealed significant amount of protein and glucose. Likely due to CKD. Diabetes his diet-controlled, recent A1c was 5.5%. Continue current treatment regimen. Follow-up with Nephrology as planned. Verbalized understanding and agreed with treatment plan. (6) Microalbuminuria: Code(s): R80.9 - Proteinuria, unspecified Category: Medical Plan: Plan as above. (7) Depression: Code(s): F32.A - Depression, unspecified Category: Medical Plan: She notes that she has been experiencing low energy, loss of interest in doing things, and having no desire to leave the house for the past 6 months. She reports passive SI, wishing she is no longer her life. She denies active SI. She denies HI or AVH. PHQ-9 and MARCELA-7 scores revealed moderate depression and mild anxiety respectively. Sertraline increased to 150 mg daily; advised to take as prescribed. Follow-up in 1 week or sooner with worsening or new symptoms. Verbalized understanding and agreed with the plan. (8) Sleep disturbance: Code(s): G47.9 - Sleep disorder, unspecified Category: Medical Plan: Reports difficulty staying asleep. She wakes up 3-4 times during the night. She sleeps about 6 hours. She feels tired all the time. Does not take medication for sleep. Had normal sleep study with [facility] in 09/01/2024. Likely related to depressive symptoms. Trazodone 12.5 mg daily at bedtime ordered; advised to take as prescribed. Instructed on the risks, benefits, and potential adverse reactions of the medication. Follow-up in 1 week. Verbalized understanding and agreed with the plan. (9) Smoking 1/2 pack a day or less: Code(s): F17.210 - Nicotine dependence, cigarettes, uncomplicated Category: Social Hx Plan: She smokes 10 cigarettes daily and has been smoking since she was 7 years old. She is currently on Chantix and uses nicotine patch and gums. Continue current treatment regimen. Follow-up as needed. Verbalized understanding and agreed with the plan. (10) Osteoporosis: Code(s): M81.0 - Age-related osteoporosis without current pathological fracture Category: Medical Plan: Last dexa scan was in 02/26/2023: Osteoporosis. DEXA scan ordered. Referred to [facility] endocrinology. Plan Total time for this visit was 75 minutes. This include 55 minutes with patient for complete physical exam and chronic disease management/treatment, and 20 minutes reviewing, coordinating plan of care, and documenting. Orders: Orders TSH reflex Free T4 03/18/25 E03.9 - Hypothyroidism, unspecified XR DEXA axial skeleton 03/18/25 M81.0 - Age-related osteoporosis without current pathological fracture MM screening mammo BI 03/18/25 Z12.31 - Encounter for screening mammogram for malignant neoplasm of breast Referrals Endocrinology Referral M81.0 - Age-related osteoporosis without current pathological fracture Medications: New hydrochlorothiazide 12.5 mg PO QAM 30 tabs 3RF 30 days trazodone 25 mg (1/2 x 50 mg) PO BEDTIME PRN 30 tabs 3RF sleep cholecalciferol (vitamin D3) 75 mcg PO DAILY 30 tabs 3RF 30 days levothyroxine (Levoxyl) 137 mcg PO DAILY 30 tabs 3RF 30 days sertraline Take with sertraline 100 mg daily to equal 150 mg daily 50 mg PO DAILY 30 tabs 3RF 30 days Discontinued cholecalciferol (vitamin D3) Discontinued Reason: Doctor's Order 50 mcg PO DAILY 90 days 90 tabs 3RF levothyroxine Discontinued Reason: Doctor's Order 125 mcg PO DAILY 30 days 30 tabs 3RF
[2025-03-18 09:21] VITALS: BP 183/77; PULSE 72; RESP 16; TEMP 36.3; O2SAT 99; BMI 22.1
--- OUTSIDE RECORDS SUMMARY | 2025-03-18 09:51 | XMS_ITS | Clinical Summary ---
Author Organization [facility] ity Address [address] [place] [address] Care Team Providers Care Film Composer Name Role Phone Landy Sutherland MD Primary Care Provider [phone] Surgical History Surgery Date Site/Laterality Comments OTHER SURGICAL HISTORY PROCEDURE: SD LAMNOTMY INCL W/DCMPRSN NRV ROOT 1 INTRSPC LUMBR; COMMENT: 3 back operations CAROTID ENDARTERECTOMY 2000 PROCEDURE: HISTORICAL CAROTID ENDART; COMMENT: right VAGINAL DELIVERY PROCEDURE: SD VAGINAL DELIVERY ONLY; COMMENT: x2 ABDOMINAL SURGERY age 22 PROCEDURE: SD UNLISTED PROCEDURE ABDOMEN PERITONEUM & OMENTUM; COMMENT: laparotomy with LSO for ruptured ectopic TONSILLECTOMY PROCEDURE: HISTORICAL TONSILLECTOMY Medical History Medical History Date Comments Esophageal reflux 03/01/2005 DX:Esophageal reflux Lumbago 03/01/2005 DX:Lumbago Thoracic aneurysm, ruptured ([facility] V24, [facility] V28) 11/12/2004 DX:Thoracic aneurysm, ruptur ed ([facility]) Peripheral vascular disease, unspecified ([facility] V24) 11/09/2004 DX:Peripheral vascular disea se, unspecified ([facility]) Other dyspnea and respirator y abnormality 11/09/2004 DX:Other dyspnea and respira tory abnormality Sciatica 09/12/2004 DX:Sciatica Sinoatrial node dysfunction ([facility] V24, [facility] V28) 01/19/2004 DX:Sinoatrial node dysfuncti on ([facility]) Cervicalgia 01/04/2004 DX:Cervicalgia Palpitations 01/04/2004 [...] not stated as uncontrolled(250.50) ([facility] V24, [facility] V28) 07/15/2012 DX:Type II or unspecified ty pe diabetes mellitus with ophthalmic manifestations, not stated as uncontrolled(250.50) ([facility]); COMMENT: Bilateral mild nuclear sclerosis. Type II or unspecified type diabetes mellitus with renal manifestations, not stated as uncontrolled(250.40) ([facility] V24, [facility] V28) 08/07/2007 DX:Type II or unspecified t ype diabetes mellitus with renal manifestations, not stated as uncontrolled(250.40) ([facility]); COMMENT: 07/10--Ogtt neg Intol Lisinopril [...] DX:Weight loss Pacemaker DX:Pacemaker Peripheral vascular disease ([facility] V24) DX:Peripheral vascular disea se ([facility]) Family History Medical History Relation [...] Years Used Date Smoking Tobacco: Former Cigarettes 0 Q uit: 2022 Smokeless Tobacco: Never Alcohol [...] age to complete this topic Care Teams Film Composer Relationship Specialty Start Date End Date Landy Sutherland MD PCP - General 05/24/22
--- OUTSIDE RECORDS SUMMARY | 2025-03-18 09:51 | XMS_ITS | Clinical Summary ---
Author Organization [facility] Address [address] [place] [phone] Phone Care Team Providers Care Paperhanger Apprentice Name Role Phone Jaylen Taylor JEB Primary Care Provider [phone] Allergies Active Allergy Reactions Criticality Noted Date [...] Office Visit [facility] [address] [place] [phone] [place] [address] [place] [phone] Health Maintenance Due Date Last Done [...] 10.1 8.7 - 10.7 mg/dL eGFR Non-Afr Nigerien 33 Total Bilirubin 0.3 MG/DL ALT (SGPT) 12 U/L AST (SGOT) 12 U/L Alkaline Phosphatase 80 U/L Hemoglobin A1C 6.0 4.0 - 6.0 12/11/2021 Historical Provider LAB BLOOD ORDERABLES Lianet l Result from Last 3 Months or Most Recently Relevant to Health Maintenance Insurance [facility] Medicare [facility] Medicare Care Teams Paperhanger Apprentice Relationship Specialty Start Date End Date Jaylen Taylor CNP [address] [place] [address] PCP - General 04/04/23
--- OUTSIDE RECORDS SUMMARY | 2025-03-18 09:52 | XMS_ITS | Continuity of Care Document ---
Author Organization [facility] [address] [place] [address] Phone [phone] Care Team Providers Care Access Control Specialist Name Role Phone Claudia York CNP Care Team Information Receive r [phone] Problems Active Problems Provider Date Osteoporosis Emanuel Cueva M.D. Onset: 0 06/16/2023 Hyperlipidemia Emaneul Cueva M.D. Onset: 0 06/16/2023 Gastroesophageal reflux [...] Indications Ordering Provider Date Vitamin D (Ergocalciferol)1.25mg (76094 Ut) Capsules 1 tab by mouth every week 8caps Emanuel Cueva M.D. 06/20/2023 Lisinopril2.5mg Tablets Take 1 Tablet Orally Every Evening Unknown Clopidogrel Hwkdlgtym87ds Tablets Take 1 Tablet By Mouth Every Day Des Sanchez MD Amlodipine Xbwmvbtg87md Tablets Take 1 Tablet By Mouth Every Day Unknown Zwntlhsceo433hp Tablets Take 1 Tablet By Mouth 2 Times A Day For 30 Days Claudia York CNP Ferrous Fctmccq866(65Fe) mg Tablets Take 1 Tablet By Mouth 1 Time Each Day With Breakfast. Unknown Pramipexole Dihydrochloride0.125mg Tablets Take 2 By Mouth Daily Des Sanchez MD Ccqksysakq933hl Capsules Take 1 Capsule By Mouth Three Times A Day Unknown Sertraline BVO496qv Tablets Take 1 Tablet By Mouth Twice A Day Des Sanchez MD Metformin PTF672mq Tablets Take 1 Tablet By Mouth Twice A Day Des Sanchez MD Atorvastatin Yohdtdm18cn Tablets Take 1 Tablet By Mouth Every Day Des Sanchez MD Levothyroxine Quautl813fpi Tablets Take 1 Tablet By Mouth Every Day Des Sanchez MD Vital Signs Date Vital Result Comment 06/16/2023 9:37am BP Systolic 110 mmHg BP Diastolic 70 mmHg Heart Rate 72 /min Height 64 inches 5'4 Weight 128.12 lb BMI (Body Mass Index) 22.0 kg/m2 Results Test Acquired Date Facility Test Result H/L Range [place] Basic Metabolic Panel 06/16/2023 [facility] Glucose 102 mg/dL High (70-99) BUN 24 mg/dL High (8-23) Creatinine 1.3 mg/dL High (0.5-1.0) Sodium 140 mmol/L (133-145) Potassium 5.2 mmol/L (3.6-5.2) Chloride 105 mmol/L (98-107) Bicarbonate 20 mmol/L Low (22-29) Anion Gap 15 (4-17) Calcium 10.4 mg/dL (8.6-10.5 ) Estimated GFR Creatinine 41 ML/MIN/1.7 3M2 1 25Oh Vitamin D 06/16/2023 [facility] 25Oh Vitamin D 14.9 NG/ML Low (20-50) Albumin 06/16/2023 [facility] Albumin 4.6 GM/DL (3.4-4.8) PTH, Intact 06/16/2023 [facility] PTH, Intact 102 pg/mL High (15-65) Phosphorus 06/16/2023 [facility] Phosphorus 3.6 mg/dL (2.5-4.5) 1 [...] E11.9 Type 2 diabetes mellitus* New Labs:* Qlsnkzb-Rh-Pulpz, Ordered: 06/16/23 * Creat Clearance, Ordered: 06/16/23 * N-Telopeptide Cross Links, Urine, Ordered: 06/16/23 Functional Status Description No Information Available Mental Status Description No Information Available Referrals Description No Information Available
--- OUTSIDE RECORDS SUMMARY | 2025-03-18 09:52 | XMS_ITS | Encounter Summary ---
Author Organization [facility] Address [address] [facility] [address] [place] [address] Phone Care Team Providers Care Archives Technician Name Role Phone Des Sanchez MD Primary Care Provider [phone] Encounter Details Date Type Department Care Team (Late st Contact Info) Description 01/05/2022 Procedure Pass [facility], Ct Scan - [address] [address] Social History Tobacco Use Types Packs/Day Years [...] 6:33 PM EDT Cici Burgos RN * [place] Suicide Severity Rating Scale (Screener/Recent Self-Report) Question [...] documented as of this encounter Care Teams Archives Technician Relationship Specialty Start Date End Date Des Sanchez MD [address] [place] [address] PCP - General Internal Medicine 11/22/21 documented as of this encounter Additional Source Comments The information contained in this document represents components of the legal health record. It is not the complete legal health record.[facility]
--- OUTSIDE RECORDS SUMMARY | 2025-03-18 09:52 | XMS_ITS | Encounter Summary ---
Author Organization [facility] Address [address] [facility] [address] [place] [address] Phone Care Team Providers Care Instructor Psychiatric Aide Name Role Phone Des Sanchez MD Primary Care Provider [phone]- [phone] Encounter Details Date Type Department Care Team (Late st Contact Info) Description 01/05/2022 Procedure Pass [facility], Ct Scan - [address] [address] Social History Tobacco Use Types Packs/Day Years [...] 6:33 PM EDT Cici Burgos RN * [place] Suicide Severity Rating Scale (Screener/Recent Self-Report) Question [...] documented as of this encounter Care Teams Instructor Psychiatric Aide Relationship Specialty Start Date End Date Des Sanchez MD [address] [place] [address] PCP - General Internal Medicine 11/22/21 documented as of this encounter Additional Source Comments The information contained in this document represents components of the legal health record. It is not the complete legal health record.[facility]
--- OUTSIDE RECORDS SUMMARY | 2025-03-18 09:52 | XMS_ITS | Patient Health Record ---
Author Organization [facility] Address [address] [place] [address] Care Team Providers Care Industrial Photographer Name Role Phone Oscar Alicia MD Primary Care Provider Prashant Sibley Unavailable [phone] Allergies Allergen (clinical drug ingredient) Drug/Non Drug [...] confirmed Problem Information temporarily unavailable Atherosclerosis of [place] arteries of extremities with intermittent claudication, bilateral [...] Coverage Start Date Coverage End Date [facility] [address] [facility] [address] [place] [address] [id number] Pallavi Mukherjee Self - patient is the [...]
--- OUTSIDE RECORDS SUMMARY | 2025-03-18 09:52 | XMS_ITS | Encounter Summary ---
Author Organization [facility] Address [address] [place] [address] Phone Care Team Providers Care Electric Operator Name Role Phone Jaylen Taylor CNP Primary Care Provider [phone] Encounter Details Date Type Department Care Team (Late st Contact Info) Description 04/22/2022 Telephone [facility] [address] [place] [address] Ilir Roca MD Social [...] thank you, order was faxed over to [facility] * Telephone Encounter [...] [facility] [address] [place] [id number] Elia Winters MD [address] [address] documented as of this encounter Visit Diagnoses Not on filedocumented in this encounter Care Teams Electric Operator Relationship Specialty Start Date End Date Jaylen Taylor CNP [address] [place] [address] PCP - General 04/04/23 documented as of this encounter
--- OUTSIDE RECORDS SUMMARY | 2025-03-18 09:52 | XMS_ITS | Clinical Summary ---
Author Organization [facility] Address [address] [id number] Phone Care Team Providers Care Fairground Operator Name Role Phone Des Sanchez MD Primary Care Provider [phone] Allergies Active Allergy Reactions Criticality Noted Date [...] patient's age to complete this topic IPV VACCINES Aged Out No longer eligi ble [...] EDT) SODIUM 138 133 - 146 mmol/L [facility] CHLORIDE 107 96 - 108 mmol/L [facility] POTASSIUM 4.3 3.3 - 5.1 mmol/L [facility] CO2 24 21 - 35 mmol/L [facility] BUN 14 6 - 19 mg/dL [facility] CREATININE 1.20 0.5 - 1.5 mg/dL [facility] GLUCOSE 242(H) 70 - 99 mg/dL [facility] CALCIUM 9.7 8.4 - 10.3 mg/dL [facility] EGFR 47(L) >59 mL/min/1.7 3m2 [facility] Comment:Estimated glomerular filtration rate calculated using the CKD-EPI refit equation. ANION GAP 11 10 - 20 mmol/L [facility] Blood 01/07/2022 6:04 AM EDT 01/07/2022 6:21 AM EDT us Zahida Gonzalez MD LAB BLOOD BKR ORDERABLES Fi nal Result [address] [address] * TSH with reflex (01/06/2022 7:07 AM EDT) TSH 3.46 0.27 - 4.20 uIU/mL [facility] Blood 01/06/2022 7:07 AM EDT 01/06/2022 7:29 AM EDT us Elmer Ricks MD LAB BLOOD BKR ORDERABLES Final Result Performing Organization Address City/[facility]/ZIP Co de Phone Number [address] [address] * Hemoglobin A1c (01/06/2022 7:07 AM EDT) HEMOGLOBIN A1C 5.6 4.3 - 5.8 % [facility] 01/06/2022 7:07 AM EDT 01/06/2022 7:29 AM EDT Elmer Ricks MD LAB BLOOD BKR ORDERABLES Final Result [facility] [address] [place] [address] from Last 3 Months or Most Recently Relevant to Health Maintenance Insurance [employer] O MEDICARE REPLACEMENT AETNA [facility] MEDICARE REPLACEMENT AETNA O MEDICARE REPLACEMENT AETNA O MEDICARE REPLACEMENT AETNA O MEDICARE REPLACEMENT AETNA PPO MEDICARE REPLACEMENT AETNA PPO MEDICARE REPLACEMENT AETNA PPO MEDICARE REPLACEMENT AET[employer] PPO MEDICARE REPLACEMENT Advance Directives For more information, please contact: [phone] (9AM - 5PM [facility], Friday-Friday) * Full Code (Latest Code Status on File) Date Activated Date Inactivated Comments 01/05/2022 10:22 PM Question Answer Comments Code Status Confirmed With: Patient Code Status Communicated To: Inpatient Attending Care Teams Fairground Operator Relationship Specialty Start Date End Date Des Sanchez MD [address] [place] [address] PCP - General Internal Medicine 11/22/21 Additional Source Comments The information contained in this document represents components of the legal health record. It is not the complete legal health record.[facility]
--- OUTSIDE RECORDS SUMMARY | 2025-03-18 09:52 | XMS_ITS | Encounter Summary ---
Author Organization [facility] Address [address] [facility] [address] [place] [address] Phone Care Team Providers Care Sectionizer Name Role Phone Des Sanchez MD Primary Care Provider [phone]- [phone] Encounter Details Date Type Department Care Team (Late st Contact Info) Description 01/05/2022 Procedure Pass [facility], Ct Scan - [address] [address] Social History Tobacco Use Types Packs/Day Years [...] 6:33 PM EDT Cici Burgos RN * [place] Suicide Severity Rating Scale (Screener/Recent Self-Report) Question [...] documented as of this encounter Care Teams Sectionizer Relationship Specialty Start Date End Date Des Sanchez MD [address] [place] [address] PCP - General Internal Medicine 11/22/21 documented as of this encounter Additional Source Comments The information contained in this document represents components of the legal health record. It is not the complete legal health record.[facility]
--- OUTSIDE RECORDS SUMMARY | 2025-03-18 09:52 | XMS_ITS | Encounter Summary ---
Author Organization [facility] Address [address] [facility] [address] [place] [address] Phone Care Team Providers Care Quality Control Inspector Name Role Phone Des Sanchez MD Primary Care Provider [phone] Encounter Details Date Type Department Care Team (Late st Contact Info) Description 01/05/2022 Procedure Pass [facility], Ct Scan - [address] [address] Social History Tobacco Use Types Packs/Day Years [...] 6:33 PM EDT Cici Burgos RN * [place] Suicide Severity Rating Scale (Screener/Recent Self-Report) Question [...] as of this encounter Care Teams Quality Control Inspector Relationship Specialty Start Date End Date Des Sanchez MD [address] [place] [address] PCP - General Internal Medicine 11/22/21 documented as of this encounter Additional Source Comments The information contained in this document represents components of the legal health record. It is not the complete legal health record.[facility]
--- OUTSIDE RECORDS SUMMARY | 2025-03-18 09:52 | XMS_ITS | Encounter Summary ---
Author Organization [facility] Address [address] [facility] [address] [place] [address] Phone Care Team Providers Care Fabrication Welder Name Role Phone Des Sanchez MD Primary Care Provider [phone]- [phone] Encounter Details Date Type Department Care Team (Late st Contact Info) Description 01/05/2022 Procedure Pass [facility], Ct Scan - [address] [address] Social History Tobacco Use Types Packs/Day Years [...] 6:33 PM EDT Cici Burgos RN * [place] Suicide Severity Rating Scale (Screener/Recent Self-Report) Question [...] documented as of this encounter Care Teams Fabrication Welder Relationship Specialty Start Date End Date Des Sanchez MD [address] [place] [address] PCP - General Internal Medicine 11/22/21 documented as of this encounter Additional Source Comments The information contained in this document represents components of the legal health record. It is not the complete legal health record.[facility]
[2025-03-18 10:02] VITALS: BP 160/70; PULSE 76
== END 2025-03-18 10:29 | disposition home or self-care (01) ==
LOC: HO.HMCFM 09:13
PROVIDERS: PCP Nurse Practitioner Family; Visit Provider Nurse Practitioner Family
DX: Z00.00 Encounter for general adult medical examination without abnormal findings (principal); I10 Essential (primary) hypertension; E03.9 Hypothyroidism, unspecified; E55.9 Vitamin D deficiency, unspecified; R80.9 Proteinuria, unspecified; F32.A Depression, unspecified; G47.9 Sleep disorder, unspecified; M81.0 Age-related osteoporosis without current pathological fracture; F17.210 Nicotine dependence, cigarettes, uncomplicated

== ENCOUNTER → 2025-04-20 14:51 | Outpatient (BNV) | payer MEDICARE, SELFPAY | PROVIDERS: PCP Nurse Practitioner Family; Visit Provider Internal Medicine Cardiovascular Disease | DX: Z45.018 Encounter for adjustment and management of other part of cardiac pacemaker (principal) | CPT/HCPCS: 93297 ==

== ENCOUNTER → 2025-04-20 14:57 | Outpatient (BNV) | payer MEDICARE, SELFPAY | PROVIDERS: PCP Nurse Practitioner Family; Visit Provider Internal Medicine Cardiovascular Disease | DX: Z45.018 Encounter for adjustment and management of other part of cardiac pacemaker (principal) | CPT/HCPCS: 93294 ==